=== PATIENT | female | born 1940 | race Caucasian/White ===

== ENCOUNTER 2018-05-11 01:09 | Outpatient (CLI) | payer MEDICARE, OTHER, SELFPAY ==
[2018-05-11 09:41] LABS: ALT 23 U/L (12-78); AST 23 U/L (15-37); Albumin 3.8 g/dL (3.4-5.0); Alkaline Phosphatase 84 U/L (46-116); Anion Gap 8.9 mmol/L (3-11); BUN 20 mg/dL (7-18); Bilirubin, Total 0.4 mg/dL (0.2-1.0); CO2 31.1 mmol/L (21.0-32.0); CREATININE 1.16 mg/dL (0.55-1.02); Calcium 9.6 mg/dL (8.5-10.1); Chloride 101 mmol/L (98-107); Estimated GFR 45.54 (mL/min/1.73m2); Glucose 94 mg/dL (70-100); Potassium 4.6 mmol/L (3.5-5.1); Sodium 141 mmol/L (136-145)
== END 2018-05-11 01:29 ==
DX: I10 Essential (primary) hypertension (principal); J44.9 Chronic obstructive pulmonary disease, unspecified; F17.200 Nicotine dependence, unspecified, uncomplicated
CPT/HCPCS: 36415; 80053

== ENCOUNTER 2018-08-31 00:53 | Outpatient (CLI) | payer MEDICARE, OTHER, SELFPAY ==
--- NOTE | 2018-08-31 09:25 | DI.MAMMO_ITS ---
SYMPTOMS/DIAGNOSIS: SCREENING, Z12.31 BILATERAL SCREENING MAMMOGRAM: Mammograms were interpreted according to the usual protocol including computer analysis with CAD system, tomosynthesis and C view imaging. Comparison is made with 2004. The breasts are composed of scattered fibroglandular densities. No suspicious masses or suspicious microcalcifications are seen. There has been no significant change. IMPRESSION: Category 1, negative mammogram. Yearly screening mammography is recommended. [facility] ASSESSMENT OF FINDINGS: Negative. Category 1. Patient will receive a letter notifying them of these results. BI-RADS category B. There are scattered areas of fibroglandular density.
--- NOTE | 2018-08-31 09:47 | DI.RAD_ITS ---
SYMPTOM/DIAGNOSIS: LT SHOULDER PAIN, M25.512 LEFT SHOULDER: No fracture or dislocation is seen. There is mild spurring at the AC joint and glenoid. The humeral head appears normally positioned. No tendon or joint space calcifications are seen. IMPRESSION: Mild degenerative changes.
== END 2018-08-31 01:13 ==
DX: Z12.31 Encounter for screening mammogram for malignant neoplasm of breast (principal); M25.512 Pain in left shoulder; M19.012 Primary osteoarthritis, left shoulder
CPT/HCPCS: 77063; 77067; 73030

== ENCOUNTER 2020-01-15 01:47 | Outpatient (CLI) | payer MEDICARE, OTHER, SELFPAY ==
--- NOTE | 2020-01-15 07:30 | DI.MAMMO_ITS ---
EXAM: MAMMO SCREENING CLINICAL HISTORY: screening,z12.39 TECHNIQUE: Mammograms were interpreted according to the usual protocol including computer analysis w ith CAD system, tomosynthesis and C-view imaging. COMPARISON: FINDINGS: The breasts are moderate density with fairly symmetrical distribution of fibroglandular tissue. No d ominant mass or clumped microcalcification is identified in either breast. The current examination i s compared with the previous examination of August 2018 and there is question of a new focal area o f asymmetric density or nodularity in the retroareolar portion of the left breast seen on the CC view only. Additional mammographic views of this area are requested to include a CC spot compression vie w of the left breast. No other significant abnormality seen. IMPRESSION: Additional mammographic views of the left breast requested as described above. Breast ultrasound may be indicated as well depending on the results of the additional mammographic views. BI-RADS Category 0 - Assessment Incomplete: Need additional imaging evaluation Breast Density - Category B - Scattered areas of fibroglandular density
== END 2020-01-15 02:07 ==
DX: Z12.31 Encounter for screening mammogram for malignant neoplasm of breast (principal); R92.8 Other abnormal and inconclusive findings on diagnostic imaging of breast
CPT/HCPCS: 77063; 77067

== ENCOUNTER 2020-01-16 01:15 | Outpatient (CLI) | payer MEDICARE, OTHER, SELFPAY ==
--- NOTE | 2020-01-16 | DI.MAMMO_ITS ---
EXAM: MG MAMMO SCREEN CALL BACK UNI CLINICAL HISTORY: F/U MAMMO, NEW FOCAL ASYMMETRIC DENSITY LT BREAST TECHNIQUE: Mammograms were interpreted according to the usual protocol including computer analysis w ith CAD system, tomosynthesis and C-view imaging. COMPARISON: FINDINGS: Additional mammographic views of left breast and left breast ultrasound are interpreted in conjunctio n. These examinations were obtained to evaluate questionable retroareolar nodularity of the left [address] seen on recent mammogram. Additional mammographic views fail to show a discrete mass. Breast ultra sound shows no evidence of a mass or cyst. IMPRESSION: No specific evidence of malignancy at this time. Follow-up unilateral left breast mammogram recommen ded in 6 months. BI-RADS Category 3 - 6 month - Probably Benign Finding: Recommend follow-up mammography in 6 months Breast Density - Category B - Scattered areas of fibroglandular density
--- NOTE | 2020-01-16 | DI.US_ITS ---
EXAM: US BREAST LT LIMITED CLINICAL HISTORY: NEW FOCAL AREA LT BREAST TECHNIQUE: Ultrasound performed using standard protocol. COMPARISON: US US BREAST LT LIMITED from 01/16/2020 FINDINGS: Left breast ultrasound was performed in conjunction with left breast additional mammographic views, q uestionable nodular finding on recent mammogram was assessed with additional views and ultrasound. A dditional view showed no mass. Ultrasound shows no mass or cyst in the retroareolar portion of the b reast. IMPRESSION: No specific evidence of malignancy at this time. Follow-up unilateral left breast mammogram recommen ded in 6 months. Please see accompanying diagnostic mammography report. DATA REPOSITORY:
[2020-01-16 14:37] LABS: ALT 22 U/L (14-59); AST 25 U/L (15-37); Alkaline Phosphatase 61 U/L (46-116); BUN 18 mg/dL (7-18); Bilirubin, Total 0.5 mg/dL (0.2-1.0); CREATININE 1.22 mg/dL (0.55-1.02); Calcium 9.4 mg/dL (8.5-10.1); Chloride 102 mmol/L (98-107); Estimated GFR 42.74 (mL/min/1.73m2); Glucose 87 mg/dL (74-106); Potassium 3.9 mmol/L (3.5-5.1); Sodium 139 mmol/L (136-145)
== END 2020-01-16 01:35 ==
DX: Z12.31 Encounter for screening mammogram for malignant neoplasm of breast (principal); R92.8 Other abnormal and inconclusive findings on diagnostic imaging of breast; N64.59 Other signs and symptoms in breast; I10 Essential (primary) hypertension; E78.5 Hyperlipidemia, unspecified
CPT/HCPCS: 36415; 76642; 77063; 77067; 80053

== ENCOUNTER 2020-07-18 21:33 | Outpatient (REF) | payer MEDICARE, OTHER, SELFPAY ==
[2020-07-18 21:52] LABS: ESR 15 mm/hr (0-30)
== END 2020-07-18 21:53 ==
LOC: NCHCN 21:33
PROVIDERS: Visit Provider Physician Assistant
DX: R68.84 Jaw pain (principal)
CPT/HCPCS: 85652

== ENCOUNTER 2020-09-04 04:09 | Outpatient (CLI) | payer MEDICARE, OTHER, SELFPAY ==
[2020-09-04 09:06] LABS: Abs Immature Grans 0.02 10^3/uL (0.0-0.06); Absolute Basophil Count 0.04 10^3/uL (0.0-0.2); Absolute Eosinophil Count 0.13 10^3/uL (0.0-0.7); Absolute Lymphocyte Count 2.59 10^3/uL (1.2-3.4); Absolute Monocyte Count 0.71 10^3/uL (0.1-0.8); Absolute Neutrophil Count 6.03 10^3/uL (1.2-6.7); Basophils % 0.4; Eosinophils % 1.4; HCT 44.1 % (36.0-46.0); HGB 14.4 g/dL (11.2-15.7); Immature Grans % 0.2; Lymphocytes % 27.2; MCH 31.3 pg (27.0-33.0); MCHC 32.7 % (32.0-36.0); MCV 95.9 fL (80-95); MPV 9.4 fL (8.0-11.0); Monocytes % 7.5; Neutrophils % 63.3; Nucleated RBC 0 %; Platelet Count 200 10^3/uL (130-400); RDW 13.4 % (11.7-14.6); RDW-SD 47.8 fL; WBC 9.52 10^3/uL (4.4-10.8)
[2020-09-04 09:09] LABS: C-Reactive Protein 0.06 mg/dL (0.0-0.3)
[2020-09-04 23:26] LABS: ESR 15 mm/hr (<or=30)
== END 2020-09-04 04:10 | disposition home or self-care (01) ==
PROVIDERS: Visit Provider Optometrist
DX: M31.6 Other giant cell arteritis (principal); H35.61 Retinal hemorrhage, right eye
CPT/HCPCS: 36415; 85652; 85025; 86140

== ENCOUNTER 2020-12-15 04:25 | Outpatient (CLI) | payer MEDICARE, OTHER, SELFPAY ==
--- NOTE | 2020-12-15 17:14 | PDOC.EEG ---
Neurology EEG EEG: [facility] Department of Neurology EEG REPORT Date of Recordin12/15/20 Interpreting Physician: Dr. Brandy Germain PCP/Referring Provider: Dr. Vani Kelley Reason for study: Ms. Jaffe is a 80 year-old woman with spontaneous and intermittent episodes of left hand shaking concerning for seizure. Current Medications: Home Medications Medication Instructions Recorded Confirmed Type aspirin [Aspirin Low-Strength] 81 mg PO DAILY tab-cap 10/02/14 12/08/20 History lisinopril 10 1 tab PO DAILY #90 tab-cap 01/14/20 12/08/20 Rx mg-hydrochlorothiazide 12.5 mg tablet pravastatin 40 mg tablet 40 mg PO HS #90 tab-cap 01/14/20 12/08/20 Rx umeclidinium 62.5 mcg/actuation 1 inh IH DAILY #90 inh 01/14/20 12/08/20 Rx blister powder for inhalation multivit with 1 tab PO DAILY 07/18/20 12/08/20 History chlddaen-dmyv-KP-lutein 8 mg iron-400 mcg-300 mcg tablet METHODS: A 21 channel digitized electroencephalogram was performed in the [facility] Clinical Neurophysiology Laboratory. The 10/20 international system of electrode placement was used and bipolar and referential electrode montages were recorded. In addition to EEG the patient was monitored for EKG and lateral/vertical eye movements. Activation procedures of photic stimulation and hyperventilation were performed if applicable. Video was used during activation procedures and during events where applicable. The duration of the recording was 30 minutes. DESCRIPTION OF EEG: The patient was noted to be awake drowsy, and asleep during the recording. During maximal wakefulness a 9-Hz posterior background rhythm was present which was well-modulated, symmetrical, reactive to eye opening, and of moderate voltage. With eye opening the background activity changed to a low voltage mixture of alpha, beta, and occasional theta range frequencies. Faster frequencies were present in the bilateral anterior head regions. There was a normal anterior-posterior voltage gradient. During drowsiness, there was attenuation of the posterior dominant background rhythm and vertex waves. Stage II sleep was present with symmetrical sleep spindles, K-complexes, and vertex waves. Activating Procedures: Photic stimulation was performed which produced a symmetrical posterior driving response at various flash frequencies. Hyperventilation was not performed EKG: EKG revealed normal sinus rhythm/sinus bradycardia. INTERPRETATION: This EEG is normal during the awake and sleep states as well as during photic stimulation. PRIOR EEG: none CLINICAL CORRELATION: No focal regions of cerebral dysfunction or epileptiform activity was present. Epilepsy remains a clinical diagnosis and a normal EEG does not rule out epilepsy. Clinical correlation is advised. Brandy Germain MD
== END 2020-12-15 04:26 | disposition home or self-care (01) ==
LOC: RT 04:25
PROVIDERS: Visit Provider Family Medicine
DX: R42 Dizziness and giddiness (principal); R29.898 Other symptoms and signs involving the musculoskeletal system
CPT/HCPCS: 95819

== ENCOUNTER → 2020-12-16 07:45 | Outpatient (BNVA) | payer MEDICARE, OTHER, SELFPAY | PROVIDERS: Visit Provider Psychiatry & Neurology Neurology ==

== ENCOUNTER 2020-12-17 07:45 | Outpatient (CLI) | payer MEDICARE, OTHER, SELFPAY ==
[2020-12-17 10:25] LABS: HCT 41.4 % (36.0-46.0); HGB 13.7 g/dL (11.2-15.7); MCHC 33.1 % (32.0-36.0); MCV 93.7 fL (80-95); MPV 8.6 fL (8.0-11.0); Platelet Count 219 10^3/uL (130-400); RBC 4.42 10^6/uL (3.93-5.22); RDW 12.9 % (11.7-14.6); RDW-SD 44.4 fL; WBC 10.74 10^3/uL (4.4-10.8)
[2020-12-17 10:26] LABS: ESR 3 mm/hr (0-30)
[2020-12-17 12:04] LABS: Albumin 3.9 g/dL (3.4-5.0); Alkaline Phosphatase 70 U/L (46-116); BUN 15 mg/dL (7-18); Bilirubin, Total 0.4 mg/dL (0.2-1.0); CO2 27.9 mmol/L (21.0-32.0); Calcium 9.4 mg/dL (8.5-10.1); Calculated LDL 74 mg/dL (<100); Chloride 99 mmol/L (98-107); Cholesterol 168 mg/dL (<200); Estimated GFR 53.62 (mL/min/1.73m2); Glucose 90 mg/dL (74-106); HDL Cholesterol 77 mg/dL (40-60); Potassium 3.9 mmol/L (3.5-5.1); Sodium 137 mmol/L (136-145); Total Protein 6.7 g/dL (6.4-8.2); Triglyceride 87 mg/dL (<150)
[2020-12-17 12:05] LABS: ALT 26 U/L (14-59); AST 24 U/L (15-37); Anion Gap 10.1 mmol/L (3-11); TSH (W/Ref FT4) 1.58 uIU/mL (0.36-3.74)
== END 2020-12-17 07:46 | disposition home or self-care (01) ==
PROVIDERS: Visit Provider Family Medicine
DX: R42 Dizziness and giddiness (principal); R25.3 Fasciculation; E78.5 Hyperlipidemia, unspecified; K59.01 Slow transit constipation; J41.0 Simple chronic bronchitis
CPT/HCPCS: 36415; 80053; 80061; 85027; 85652; 84443

== ENCOUNTER 2020-12-22 02:01 | Outpatient (CLI) | payer MEDICARE, OTHER, SELFPAY ==
--- NOTE | 2020-12-22 09:30 | DI.MRI_ITS ---
Exam(s) MR BRAIN WO EXAM: MR BRAIN WO CLINICAL HISTORY: ? seizures,muscle twitching,dizziness,r25.3,r42 TECHNIQUE: Multiplanar multisequence MRI of the brain was performed. COMPARISON: No prior brain imaging studies available time this MRI interpretation. FINDINGS: CEREBRAL PARENCHYMA: There is no evidence of intracranial hemorrhage, mass effect, or shift of midline structures. There are no extra-axial fluid collections. Ventricles are not enlarged or shifted. Small area of signal abnormality in the left cerebellar hemispheres noted is probably related to non recent ischemic change. There is no significant signal abnormality in the alesia and midbrain and thal ami. Small sub lenticular cyst on the left side is noted which measures 3 x 3 millimeters. There is some mild bilateral periventricular signal abnormality, more prominent on the right side but not ass ociated with hemorrhage or surrounding edema nor abnormal signal on diffusion imaging to suggest acut e ischemic events. There is no significant focal signal abnormality evident on diffusion imaging to suggest acute ischem ic event. PITUITARY GLAND: No mass nor parasellar abnormality. No obvious abnormality in the cavernous sinuses. FLOW VOIDS: Left vertebral artery is dominant. No evidence of obvious aneurysm nor obvious vascular malformation. PARANASAL SINUSES: The visualized paranasal sinuses appear unremarkable. No obvious finding ORBITS: No obvious findings. IMPRESSION: There is periventricular signal abnormality bilaterally but more prominent on the right side. This, however, is not associated with hemorrhage or surrounding edema nor abnormal signal on diffusion imag ing to suggest acute ischemic event. These findings most probably chronic ischemic changes. DATA REPOSITORY:
--- NOTE | 2020-12-22 09:51 | DI.CTLCSR_ITS ---
Exam(s) CT CHEST LUNG CANCER SCREEN EXAM: CT CHEST LUNG CANCER SCREEN CLINICAL HISTORY: Screening for lung cancer,current smoker, f17.210. TECHNIQUE: Imaging Protocol: Low Dose Technique CONTRAST MATERIAL: None COMPARISON: CR XR CHEST 2V PA LATERAL from 12/22/2020 CR XR CHEST 2V PA LATERAL from 12/22/2020 FINDINGS: CHEST: LUNGS: There is a small noncalcified nodule in the anterior segment of the left upper lobe which desire ures 3 x 2 millimeters.. Mild subpleural infiltrate noted in the anterior segment left upper lobe. There is also a small nodular density lateral aspect left lung measuring 5 millimeters. Mild infiltr ate noted in the inferior lingular segment left lung. No pleural effusion. In the opposite-right lung there is a subpleural 4 millimeter nodular infiltrate in the lateral right upper lobe noted. There is also a 2 millimeter subtle nodule in the right lower lobe. No pleural e ffusions on either side. There are no significant focal findings in the trachea and mainstem bronchi . MEDIASTINUM: There is no obvious hilar nor mediastinal adenopathy. CARDIAC: Heart size is normal. There is no pericardial effusion.Caliber of the thoracic aorta is wit hin normal limits. OTHER: OSSEOUS: No significant osseous lesions.. IMPRESSION: 1. Bilateral nodular infiltrates both lung burdick as described above. No pleural effusions. No obvi ous intrathoracic adenopathy. Recommend follow-up CT scan in 6 months, earlier if clinically indicat ed lung RADS Cat 3 - Probably Benign: Probably benign finding(s) - short term follow-up suggested; inclu de nodules with a low likelihood of becoming a clinically active cancer. Lung-RADS 1.0 CATEGORIES: Category 0 - Prior chest CT exam(s) being located for comparison. Category 1 - Annual screening in 12 months. No nodules or definitely benign nodules. Category 2 - Annual screening in 12 months. Benign appearance. Nodules with low likelihood of becomin g active cancer. Category 3 - 6-month follow-up. Probably benign. Short-term follow-up suggested. Nodules with low lik elihood of becoming active cancer. Category 4A - 3-month follow-up and CT/PET if >8 mm in size. Suspicious finding. Findings which requi re additional testing. Category 4B - Findings which require additional testing and tissue sampling. Modifier S- Potentially clinically significant findings (non lung cancer) RADIATION DOSE DELIVERED: 76.44mGy.cm Total DLP 1.84mGy CTDIvol DATA REPOSITORY: All CT scans at this facility are submitted to the National Radiology Data Registry (NRDR) Dose Index Registry (DIR) with the [employer] (ACR). RADIATION OPTIMIZATION: All CT scans at this facility use at least one of these dose optimization te chniques: automated exposure control; mA and/or kV adjustment per patient size (includes targeted exa ms where dose is matched to clinical indication); or iterative reconstruction.
--- NOTE | 2020-12-22 09:56 | DI.RAD_ITS ---
Exam(s) XR CHEST 2V PA LATERAL EXAM: XR CHEST 2V PA LATERAL CLINICAL HISTORY: smoker,f17.200. TECHNIQUE: 2D digital imaging was performed. COMPARISON: CR XR shoulder LT complete 2+V from 08/31/2018 FINDINGS: Heart size is normal. The mediastinum is not widened. Lungs are clear. No infiltrates nor pleural effusions. IMPRESSION: No acute pulmonary findings. DATA REPOSITORY: RADIATION DOSE DELIVERED:
== END 2020-12-22 02:21 ==
PROVIDERS: Visit Provider Family Medicine
DX: Z12.2 Encounter for screening for malignant neoplasm of respiratory organs; R91.8 Other nonspecific abnormal finding of lung field; R42 Dizziness and giddiness; R25.3 Fasciculation; F17.200 Nicotine dependence, unspecified, uncomplicated
CPT/HCPCS: 71271; 70551; 71046

== ENCOUNTER 2020-12-30 03:23 | Outpatient (CLI) | payer MEDICARE, SELFPAY ==
[2020-12-31 10:33] LABS: Lyme Ab w Rflx to Lyme Confirm Negative (Negative)
== END 2020-12-30 03:24 | disposition home or self-care (01) ==
LOC: LBO 03:23
PROVIDERS: Visit Provider Family Medicine
DX: W57.XXXA Bitten or stung by nonvenomous insect and other nonvenomous arthropods, initial encounter (principal); T14.8XXA Other injury of unspecified body region, initial encounter
CPT/HCPCS: 36415; 86618

== ENCOUNTER → 2021-02-12 08:37 | Outpatient (BNVA) | payer MEDICARE, OTHER, SELFPAY | PROVIDERS: Visit Provider Psychiatry & Neurology Neurology | DX: R56.9 Unspecified convulsions (principal); R42 Dizziness and giddiness; I10 Essential (primary) hypertension; J44.9 Chronic obstructive pulmonary disease, unspecified | CPT/HCPCS: 99205 ==

== ENCOUNTER → 2021-03-30 08:14 | Outpatient (BNVA) | payer MEDICARE, OTHER, SELFPAY | PROVIDERS: Visit Provider Psychiatry & Neurology Neurology | DX: R42 Dizziness and giddiness (principal); R56.9 Unspecified convulsions | CPT/HCPCS: 99213 ==

== ENCOUNTER 2021-04-16 03:01 | Outpatient (CLI) | payer MEDICARE, OTHER, SELFPAY ==
--- NOTE | 2021-04-16 16:15 | RT.EKG_ITS ---
APPROVED REPORT Exam: Resting ECG Reason for Exam: Abn EKG on EEG Patient Location: O HR:88 bpm ECG Measurements Heart Rate 88 AXIS PA 133 P 81 QRSd 80 QRS 38 QT 379 T 76 QTc 460 Conclusion Sinus rhythm...normal P axis, V-rate 60- 99 Normal Electrocardiogram
--- NOTE | 2021-04-21 11:48 | PDOC.EEG ---
Neurology EEG EEG: [facility] Department of Neurology LONG-TERM AMBULATORY EEG REPORT Date of Recordin04/16/21 at 08:37:06 to 04/18/21 at 09:27:11 Interpreting Physician: Dr. Brandy Germain PCP/Referring Provider: Reason for study: Ms. Jaffe is a 80 year-old woman with episodic left arm shaking concerning for focal seizures. Current Medications: Home Medications Medication Instructions Recorded Confirmed Type aspirin [Aspirin Low-Strength] 81 mg PO DAILY tab-cap 10/02/14 03/30/21 History multivit with 1 tab PO DAILY 07/18/20 03/30/21 History omkbnvxq-cpwb-KB-lutein 8 mg iron-400 mcg-300 mcg tablet lisinopril 10 1 tab PO DAILY #90 tab-cap 01/13/21 03/30/21 Rx mg-hydrochlorothiazide 12.5 mg tablet umeclidinium 62.5 mcg/actuation 1 inh IH DAILY #90 inh 01/13/21 03/30/21 Rx blister powder for inhalation polyethylene glycol 3350 17 17 g PO DAILY PRN #510 g 01/26/21 03/30/21 Rx gram/dose oral powder food supplemt, lactose-reduced 237 ml PO BID PRN #5688 ml 02/05/21 03/30/21 Rx 0.05 gram-1.5 kcal/mL oral liquid levetiracetam 250 mg tablet 250 mg PO .COMPLEX #60 tab 03/30/21 03/30/21 Rx pravastatin 40 mg tablet 40 mg PO HS #90 tab-cap 04/03/21 Rx METHODS: An 18-channel digitized electroencephalogram was recorded in the ambulatory setting with video. The 10/20 international system of electrode placement was used and bipolar and referential electrode montages were recorded. In addition to EEG the patient was monitored for EKG. The video application was not working for this EEG. Activation procedures of photic stimulation and hyperventilation were performed if applicable. The duration of the recording was ~49 hours. DESCRIPTION OF EEG: Waking background activity: During maximal wakefulness a 10-Hz posterior background rhythm was present which was well-modulated, symmetrical, reactive to eye opening, and of moderate voltage. Faster frequencies were present in the bilateral anterior head regions. There was a normal anterior-posterior voltage gradient. Drowsy and sleeping background activity: During drowsiness, there was attenuation of the posterior dominant background rhythm and vertex waves. Normal stage II and III sleep was present with symmetrical sleep spindles, K-complexes, and vertex waves with slowing of the background rhythm to delta/theta frequencies. REM sleep manifested by rapid lateral eye movements and faster background rhythms was recorded. Arousal was unremarkable. Interictal abnormalities: none. Ictal findings: Unfortunately, video was not working during this recording. Event #1 on 04/16/21 at 10:45 -Clinical manifestations: Left hand and arm twitching [id number] while doing dishes. -EEG findings: No abnormal or epileptiform activity seen. Event #2 on 04/16/21 at 19:10 -Clinical manifestations: Neck pain and headache x 30min while doing word puzzles. -EEG findings: No abnormal or epileptiform activity seen. Event #3 on 04/17/21 at 10:06 -Clinical manifestations: Arm and hand twitching [id number] while sitting. -EEG findings: No abnormal or epileptiform activity seen. Event #4 on 04/17/21 at 09:38 -Clinical manifestations: Arm and hand twitching x15sec while eating breakfast. -EEG findings: No abnormal or epileptiform activity seen. Event #5 on 04/17/21 at 11:00 -Clinical manifestations: Arm and hand twitching and leg feel weak [id number] while doing dishes and sweeping. -EEG findings: No abnormal or epileptiform activity seen. Event #6 on 04/17/21 at 11:09 -Clinical manifestations: Arm and hand twitching [id number] while sitting. -EEG findings: No abnormal or epileptiform activity seen. Event #7 on 04/17/21 at 12:31 -Clinical manifestations: Arm and hand twitching [id number] while getting up from lying down. -EEG findings: No abnormal or epileptiform activity seen. She was asleep prior to button push. Event #8 on 04/17/21 at 17:17 -Clinical manifestations: Dizzy/arm twitching/legs shakey/woozy x 10-15sec while putting dishes away. -EEG findings: No abnormal or epileptiform activity seen. Event #9 on 04/18/21 at 07:40 -Clinical manifestations: A little dizzy x 5-10sec. -EEG findings: No abnormal or epileptiform activity seen. Activating Procedures: Photic stimulation was performed which produced a symmetrical posterior driving response at various flash frequencies. Hyperventilation was not performed. EKG: EKG revealed normal sinus rhythm. INTERPRETATION: This long-term EEG is normal during the awake and sleep states as well as during photic stimulation. Multiple typical and atypical events captured above without clear epileptiform activity. PRIOR EEG: -EEG (12/15/20 at [facility]): No events captured. Normal awake, asleep, and with photic stimulation. CLINICAL CORRELATION: No focal regions of cerebral dysfunction or epileptiform activity was present. Multiple typical and atypical events captured above without clear epileptiform activity. This does not necessarily rule out an epileptic process. Epilepsy remains a clinical diagnosis and a normal EEG does not rule out epilepsy. Clinical correlation is advised. Brandy Germain MD
== END 2021-04-16 03:02 | disposition home or self-care (01) ==
LOC: RT 03:02
PROVIDERS: Visit Provider Psychiatry & Neurology Neurology
DX: R29.898 Other symptoms and signs involving the musculoskeletal system (principal)
CPT/HCPCS: 95705; 95708; 95721; 93005; 93010

== ENCOUNTER 2021-04-24 01:18 | Outpatient (CLI) | payer MEDICARE, OTHER, SELFPAY ==
--- NOTE | 2021-04-24 06:45 | DI.US_ITS ---
Exam(s) US CAROTID EXAM: US CAROTID CLINICAL HISTORY: tia,cva,I63.9. TECHNIQUE: Ultrasound carotids performed using grayscale, color-flow, and spectral Doppler imaging. COMPARISON: No exams were available for comparison FINDINGS: RIGHT CAROTID ARTERY: Plaque: Moderate calcific plaque seen in the common carotid artery in the carotid bulb. Velocity elevation: None. LEFT CAROTID ARTERY: Plaque: Moderate calcific plaque present the common carotid artery, carotid bulb and proximal interna l and external carotid arteries. Velocity elevation: Yes. VERTEBRAL ARTERIES: Antegrade flow. Measurements: R Bulb: 128.9cm/s PS / 25.6cm/s ED R CCA: 18.2cm/s PS / 5.2cm/s ED R ECA: 65.8cm/s PS / 13cm/s ED R ICA Prox: 83.1cm/s PS /9.4cm/s ED R ICA Mid: 46.9cm/s PS / 6.4cm/s ED R ICA Distal: 56.1cm/s PS /12.1cm/s ED R Vert: 63cm/s PS / 9.3cm/s ED R SVR: 4.57 R DVR: 1.81 L Bulb: 71.1cm/s PS /11cm/s ED L CCA: 72.3cm/s PS / 19.1cm/s ED L ECA: 156.7cm/s PS /17.9cm/s ED L ICA Prox:139.9cm/s PS / 31.6cm/s ED L ICA Mid: 97.5cm/sPS / 24.8cm/s ED L ICA Distal: 109.1cm/s PS / 27.3cm/s ED L Vert: 96.7cm/s PS / 26.4cm/s ED L SVR: 1.93 L DVR: 1.65 IMPRESSION: 1. Proximal left internal carotid artery stenosis in the range of 50-69 percent. 2. No hemodynamically significant right internal carotid artery stenosis. Criteria for Carotid Stenosis: Normal: ICA PSV <125 cm/s no plaque or intimal thickening is visible. <50% stenosis: ICA PSV <125 cm/s and plaque or intimal thickening is visible. 50-69% stenosis: ICA PSV is 125-250 cm/s and plaque is visible. >70% stenosis to near occlusion: ICA PSV >250 cm/s with visible plaque and luminal narrowing. DATA REPOSITORY:
== END 2021-04-24 01:38 ==
PROVIDERS: Visit Provider Psychiatry & Neurology Neurology
DX: I63.9 Cerebral infarction, unspecified (principal); I65.22 Occlusion and stenosis of left carotid artery
CPT/HCPCS: 36415; 82565; 93880

== ENCOUNTER 2021-04-24 07:43 | Outpatient (CLI) | payer MEDICARE, OTHER, SELFPAY ==
[2021-04-24 09:45] LABS: CREATININE 1.1 mg/dL (0.55-1.02); Estimated GFR 48.04 (mL/min/1.73m2)
== END 2021-04-24 07:44 | disposition home or self-care (01) ==
LOC: LBO 07:44
PROVIDERS: Visit Provider Psychiatry & Neurology Neurology
DX: R56.9 Unspecified convulsions (principal); Z01.812 Encounter for preprocedural laboratory examination
CPT/HCPCS: 36415; 82565

== ENCOUNTER 2021-04-28 00:21 | Outpatient (CLI) | payer MEDICARE, OTHER, SELFPAY ==
--- NOTE | 2021-04-28 08:30 | DI.MRI_ITS ---
Exam(s) MR BRAIN WO/W EXAM: MR BRAIN WO/W CLINICAL HISTORY: szs and recent episode transient left hand numbnesS,R56.9. TECHNIQUE: Multiplanar multisequence MRI of the brain was performed. CONTRAST MATERIAL: IV Contrast: 12 ML of Dotarem contrast administered. COMPARISON: MR MR BRAIN WO from 12/22/2020 FINDINGS: VENTRICLES AND EXTRA AXIAL SPACES: Normal in size and morphology for the patient's age. HEMORRHAGE: None. CEREBRAL PARENCHYMA: No focus of restricted diffusion to suggest acute infarct. No space-occupying le jake identified. Stable scattered foci of high signal in the white matter both cerebral hemispheres, slightly greater on the right, likely reflecting chronic microvascular changes. Mild to moderate at rophy. MIDLINE SHIFT: None. BRAINSTEM/CEREBELLUM: Normal. CALVARIUM: Normal. ENHANCEMENT: No suspicious enhancement identified. VISUALIZED PARANASAL SINUSES/MASTOIDS: Clear. OTHER FINDINGS: Orbits and pituitary are unremarkable. Vascular flow voids are intact. IMPRESSION: Stable appearance atrophy and white matter changes consistent with small vessel disease. No evidence of acute infarct or abnormal enhancement. DATA REPOSITORY:
[2021-04-28] MEDS: Gadoterate meglumine 20 ML VIAL 12 ML IVP (14:18)
[2021-04-28] MEDS: Normal Saline Flush 10 ML SYR IVP (14:18)
== END 2021-04-28 00:41 ==
PROVIDERS: Visit Provider Psychiatry & Neurology Neurology
DX: R56.9 Unspecified convulsions (principal); R20.0 Anesthesia of skin; G31.89 Other specified degenerative diseases of nervous system; R90.82 White matter disease, unspecified
CPT/HCPCS: 70553

== ENCOUNTER → 2021-05-05 08:25 | Outpatient (BNVA) | payer MEDICARE, OTHER, SELFPAY | PROVIDERS: Visit Provider Psychiatry & Neurology Neurology | DX: R25.1 Tremor, unspecified (principal); M79.602 Pain in left arm; I65.22 Occlusion and stenosis of left carotid artery | CPT/HCPCS: 99214 ==

== ENCOUNTER 2021-08-14 01:22 | Outpatient (CLI) | payer MEDICARE, OTHER, SELFPAY ==
--- NOTE | 2021-08-14 09:15 | DI.MRI_ITS ---
Exam(s) MR CERVICAL SPINE WO EXAM: MR CERVICAL SPINE WO CLINICAL HISTORY: CERVICAL SPONDYLOSIS WITH MYELOPATHY, M17.12; HYPERREFLEXIA, R29.2 TECHNIQUE: Multiplanar multisequence MRI of the cervical spine was performed without intravenous con trast. COMPARISON: No exams were available for comparison FINDINGS: BONES: Vertebral body heights are maintained. Intervertebral disc spaces are normal. Alignment is nor mal. Bone marrow signal intensity is within normal limits. CERVICAL CORD: Craniovertebral junction is unremarkable. The cervical cord is normal size and signal intensity. SOFT TISSUES: Unremarkable. C2-3: No disc herniation or bulge is identified. No significant central spinal canal or neural forami nal stenosis. C3-4: No disc herniation or bulge is identified. No significant central spinal canal or neural forami nal stenosis C4-5: There is mild prominence of the uncovertebral joints. This does result in mild narrowing of th e neural foramen bilaterally, right greater than left. No significant central spinal canal stenosis. C5-6: No disc herniation or bulge is identified. No significant central spinal canal or neural forami nal stenosis C6-7: No disc herniation or bulge is identified. No significant central spinal canal or neural forami nal stenosis C7-T1: No disc herniation or bulge is identified. No significant central spinal canal or neural keyla inal stenosis IMPRESSION: Degenerative changes at C4-5 resulting in mild bilateral neural foraminal stenosis, right greater manfred n left. DATA REPOSITORY:
== END 2021-08-14 01:42 ==
PROVIDERS: Visit Provider Psychiatry & Neurology Neurology
DX: M47.12 Other spondylosis with myelopathy, cervical region (principal); R29.2 Abnormal reflex
CPT/HCPCS: 72141

== ENCOUNTER 2021-08-14 01:24 | Outpatient (CLI) | payer MEDICARE, OTHER, SELFPAY ==
--- NOTE | 2021-08-14 06:30 | DI.CT_ITS ---
Exam(s) CT CHEST WO EXAM: CT CHEST WO CLINICAL HISTORY: f/u lung screening ct, lung abnormality,j98.4 TECHNIQUE: Imaging Protocol: Axial computed tomography images with coronal and sagittal reformatted images were created and reviewed COMPARISON: CT CT CHEST LUNG CANCER SCREEN from 12/22/2020 FINDINGS: Tracheobronchial tree: Patent where visualized. Pulmonary parenchyma: No consolidation or dominant measurable mass. Mild emphysematous changes are se en in the lungs. Lung Nodules: There is a stable 3 mm noncalcified pulmonary nodule in the anterior aspect of the left upper lobe. The 5 mm ground-glass nodule in the lateral aspect of the left lung is unchanged. Ther e is a stable 3 mm nodule in the lateral aspect of the right upper lobe. There is a stable subpleura l 2 mm nodule in the right lower lobe. There is a 3 mm subpleural nodule in the right upper lobe lat erally. There is new 5 mm nodule in the right middle lobe. Mediastinum and Natasha: Stable mildly enlarged mediastinal lymph nodes. There does appear to be a smal l hiatal hernia. The esophagus is otherwise unremarkable. Thyroid gland: Unremarkable. Lymph nodes: No significant axillary adenopathy. Pleura: No effusion or pneumothorax. Heart: The heart is not dilated. Coronary artery calcifications are present. No pericardial effusion . Aorta: Thoracic aorta non-dilated.Atherosclerosis. Upper abdomen: Nephrolithiasis. Extensive atherosclerosis. The common bile duct is distended up to 1 cm. Soft Tissues: Unremarkable. Bones: Within normal limits. IMPRESSION: 1. Several pulmonary nodules. There is a new 5 mm pulmonary nodule in the right middle lobe. 2. Nephrolithiasis. 3. Common bile duct distended up to 1 cm. Follow-up with upper abdominal ultrasound should be consid ered. Lung RADS Cat 3 - Probably Benign: Probably benign finding(s) - short term follow-up suggested; inclu de nodules with a low likelihood of becoming a clinically active cancer. Modifier S Lung-RADS 1.0 CATEGORIES: Category 0 - Prior chest CT exam(s) being located for comparison. Category 1 - Annual screening in 12 months. No nodules or definitely benign nodules. Category 2 - Annual screening in 12 months. Benign appearance. Nodules with low likelihood of becomin g active cancer. Category 3 - 6-month follow-up. Probably benign. Short-term follow-up suggested. Nodules with low lik elihood of becoming active cancer. Category 4A - 3-month follow-up and CT/PET if >8 mm in size. Suspicious finding. Findings which requi re additional testing. Category 4B - Findings which require additional testing and tissue sampling. Suspicious finding. Category 4X - Category 3 or 4 nodules with additional features or imaging findings that increases the suspicion of malignancy. Modifier S- Potentially clinically significant finding. (Non lung cancer) RADIATION DOSE DELIVERED: 365.99mGy.cm Total DLP CTDIvol 365.99mGy.cm Total DLP 365.99mGy.cm Total DLP DATA REPOSITORY: All CT scans at this facility are submitted to the National Radiology Data Registry (NRDR) Dose Index Registry (DIR) with the [employer] (ACR). RADIATION OPTIMIZATION: All CT scans at this facility use at least one of these dose optimization te chniques: automated exposure control; mA and/or kV adjustment per patient size (includes targeted exa ms where dose is matched to clinical indication); or iterative reconstruction.
== END 2021-08-14 01:44 ==
DX: J98.4 Other disorders of lung (principal); R91.1 Solitary pulmonary nodule; R59.0 Localized enlarged lymph nodes; K44.9 Diaphragmatic hernia without obstruction or gangrene
CPT/HCPCS: 71250; 72141

== ENCOUNTER 2021-11-13 17:22 | Emergency (ER) | payer MEDICARE, OTHER, SELFPAY ==
[2021-11-13 17:37] VITALS: BP 160/73; PULSE 94; RESP 18; TEMP 37.2; O2SAT 95
--- NOTE | 2021-11-13 18:45 | DI.CT_ITS ---
Exam(s) CT HEAD WO EXAM: CT HEAD WO CLINICAL HISTORY: falls, left temporal/parietal hematoma. TECHNIQUE: Imaging Protocol: Axial computed tomography images with coronal and sagittal reformatted images were created and reviewed COMPARISON: MR MR BRAIN WO/W from 04/28/2021 FINDINGS: There are no skull fractures nor fluid in the visualized paranasal sinuses. There is no evidence of intracranial hemorrhage, mass effect, or shift of midline structures. There are no extra-axial fluid collections. The ventricles are not enlarged or shifted and there is no blo od within the ventricular system nor within the basal cisterns. There are areas of periventricular hypodensity consistent with chronic small vessel disease. However , there is also an area of encephalomalacia in the right frontal lobe which was not evident on the re cent MRI scan of April 2021 and also increase hypodensity in the right periventricular white matter which is more so than expected when viewing the April 2021 MRI. There are no new obvious findings in the cerebellar hemispheres nor within the alesia, midbrain, and th nadiya. IMPRESSION: Increased findings as described above when compared to the most recent brain imaging study which was an MRI of 04/28/2021. Recommend follow-up MRI with diffusion imaging. Study 1st read by [facility]. Final report called by myself to ER provider Tuesday11/14/2021 at 2:15 p.m. RADIATION DOSE DELIVERED: 640.3mGy.cm Total DLP DATA REPOSITORY: All CT scans at this facility are submitted to the National Radiology Data Registry (NRDR) Dose Index Registry (DIR) with the [employer] (ACR). RADIATION OPTIMIZATION: All CT scans at this facility use at least one of these dose optimization te chniques: automated exposure control; mA and/or kV adjustment per patient size (includes targeted exa ms where dose is matched to clinical indication); or iterative reconstruction.
--- NOTE | 2021-11-13 18:45 | DI.RAD_ITS ---
Exam(s) XR HUMERUS LT EXAM: XR HUMERUS LT CLINICAL HISTORY: falls, arm weakness. TECHNIQUE: 2D digital imaging was performed. COMPARISON: No exams were available for comparison FINDINGS: Two views There is no evidence of fracture or dislocation of the left humerus. Subacromial space is not dimini shed. Glenohumeral and AC joints appear unremarkable. Bone density is age-appropriate. No adjacent rib fractures. IMPRESSION: No significant radiographic findings in the left humerus. DATA REPOSITORY: RADIATION DOSE DELIVERED:
--- NOTE | 2021-11-13 18:52 | W.ED.GENAD ---
Discharge Plan Disposition Patient Disposition: HOME Condition: Stable Discharge Details Chief Complaint: GenMedical Clinical Impression: Falls Primary Care Provider: Rupa Rodríguez ED Provider: Jerad Chambers Home Meds and New Rx's Prescriptions: No Action lisinopril-hydrochlorothiazide 10-12.5 mg tablet 1 tab PO DAILY Qty: 90 4RF umeclidinium 62.5 mcg/actuation blister with device 1 inh IH DAILY Qty: 90 4RF Centrum Silver Women 8 mg iron-400 mcg-300 mcg tablet 1 tab PO DAILY aspirin [Aspirin Low-Strength] 81 MG tablet,chewable 81 mg PO DAILY Label Comments: Pt states she hasn't taken anything for over a year. 04/24/19 rl pravastatin 40 mg tablet 40 mg PO HS Qty: 90 4RF Rx Instructions: 1 TAB HS Discharge Instructions Instructions: Fall Prevention for Older Adults (ED) Additional Instructions: Please follow-up with your neurologist as scheduled. Please return the emergency department if you need further assistance obtaining care or hearing more frequent falls/spasms/convulsions. Medical Decision Making 81-year-old female history of convulsions, multiple falls, recent of her 3 months ago, lives alone, has not been able to complete the accident daily living such as cooking cleaning bathing and eating as she normally does, her daughter has been coming out to help her her daughter lives in [place], multiple falls after spasms of lower extremities/convulsions of lower extremities, hit her left scalp approximately week ago, unclear LOC, patient does have a small palpable hematoma in the left parietal temporal region, is alert and oriented moving all extremities, no acute distress at this time, however patient does endorse weight loss likely related to decreased p.o. intake, likely decreased functional status in the setting of grief, patient tearful regarding the loss of her , has not been eating as much, due to her recurrent spasm/shaking activity of her lower extremities patient has had multiple falls, is a risk for serious injury at home as she does live alone, due to physical deterioration and multiple falls will be best served with medical evaluation and rehabilitation stay for occupational and physical therapy. Consider short-term versus long-term placement. Family amenable to plan. Will obtain CT head and x-ray of left humerus, basic labs urinalysis. Low suspicion for acute stroke must consider electrolyte abnormality versus mild dehydration versus UTI versus less likely ACS PE or aortic pathology, consider mechanical injury to left upper extremity such as shoulder dislocation or fracture from fall. 20: 37 labs imaging largely unremarkable. Likely due to mild dehydration. Patient now does not want admission with further follow-up as an outpatient. Family is amenable to caring for patient over the next couple of days, should be using a walker at home to ambulate to assist for mobility and stabilize her in case of falls. I will provide a PT referral as well as follow-up with case management team to discuss occupational therapy and home health care options. Given strict return precautions for worsening symptoms. HPI General Date/Time Provider Initiated Documentation: 11/13/21 18:23. HPI Narrative: 81-year-old female history of convulsions, multiple falls, recent of her approximately 3 months ago, lives alone, brought in by family for multiple falls decreased p.o. intake weight loss patient [place] is falling several days ago hitting her left side of her head unclear whether she had LOC, fall sounds mechanical in nature as she develops rapid spasms of her bilateral lower extremities brief in nature, has had chronic left upper extremity weakness for several months has been evaluated by primary care physician neurology, and has been referred to [facility] for further work-up, has had an EEG that was negative for seizures is currently awaiting EMG Related Data Home Medications Medication Instructions Recorded Confirmed aspirin 81 mg chewable tablet 81 mg PO DAILY 10/02/14 11/13/21 (Aspirin Low-Strength) multivit with 1 tab PO DAILY 07/18/20 11/13/21 [id number]-lutein 8 mg iron-400 mcg-300 mcg tablet (Centrum Silver Women) lisinopril 10 1 tab PO DAILY #90 tab-caps 01/13/21 11/13/21 mg-hydrochlorothiazide 12.5 mg tablet umeclidinium 62.5 mcg/actuation 1 inh inhalation DAILY COPD - 3 01/13/21 11/13/21 blister powder for inhalation inhalers for 3 months #90 inhalations pravastatin 40 mg tablet 40 mg PO HS #90 tab-caps 04/03/21 11/13/21 Previous Rx's Medication Instructions Recorded lisinopril 10 1 tab PO DAILY #90 tab-caps 01/13/21 mg-hydrochlorothiazide 12.5 mg tablet umeclidinium 62.5 mcg/actuation 1 inh inhalation DAILY COPD - 3 01/13/21 blister powder for inhalation inhalers for 3 months #90 inhalations pravastatin 40 mg tablet 40 mg PO HS #90 tab-caps 04/03/21 Allergies Allergy/AdvReac Type Severity Reaction Status Date / Time No Known Allergies Allergy Verified 05/12/21 07:57 General Stated Complaint: GenMedical IFTIKHAR: 3 Review of Systems Narrative: Review of Systems Constitutional: Weight loss Eyes: negative ENT: negative Cardiovascular: negative Respiratory: negative Gastrointestinal: negative : negative Musculoskeletal: negative Skin: negative Neurologic: Spasms, falls Psych: negative PFSH All Active Problems (Updated 11/13/21 @ 20:39 by Jerad Chambers MD) Falls (Acute) Anxiety about health (Acute) Carotid stenosis, left (Acute) Left arm pain (Acute) Seizures (Acute) History of recent fall (Acute) Tremor (Acute) Lung abnormality (Acute) Tick bite (Acute) Dizziness (Acute) Muscle twitching (Acute) Dehydration symptoms (Acute) Jaw pain (Acute) Pain in lower jaw (Acute) Decreased renal function (Acute) Shoulder arthralgia (Chronic) Smoker (Chronic 10/19/16) Polyp of colon (Acute) tubular adenoma Peripheral vascular disease (Acute) Jul 2014 [facility] aorto bifem bypass LEFT ILIAC STENT [facility] 03/2010 Lumbago (Chronic 05/10/13) Hyperlipidemia (Chronic) Essential hypertension (Acute 03/30/13) Diverticulitis of colon (Acute) H/O SIGMOID COLECTOMY Constipation (Chronic 11/14/17) Chronic obstructive lung disease (Acute) PFT'S 2009 FEV 1.15=59% continues to smoke Medical History Chronic obstructive lung disease PFT'S 2009 FEV 1.15=59% continues to smoke Constipation (11/14/17) Decreased renal function Dehydration symptoms Diverticulitis of colon H/O SIGMOID COLECTOMY Essential hypertension (03/30/13) Hyperlipidemia Lumbago (05/10/13) Lung abnormality Pain in lower jaw Peripheral vascular disease Jul 2014 [facility] aorto bifem bypass LEFT ILIAC STENT [facility] 03/2010 Polyp of colon tubular adenoma Shoulder arthralgia Smoker (10/19/16) Tremor Surgical History Extraction of cataract B/L 04/2013 Ligation of fallopian tube Rotator Cuff Repair RIGHT Trigger Finger release WRIST/THUMB SURGERY LEFT THUMB LEFT WRIST RIGHT THUMB Family History Mother Diabetes Essential hypertension Stroke Father , 55 Heart disease Stroke Brother , 71 Complications from surgery No problems noted. Son No problems noted. Son No problems noted. Daughter No problems noted. Daughter No problems noted. Social History Smoking/Tobacco Use Status: Current every day Tobacco Type: cigarettes Smoking packs per day: 0.5 Smoking cigarettes per day: 10.0 Years smoked: 63 Smoking pack-years: 31.50 Quit status: considering quitting Second Hand Exposure: Yes Smoking risk assessment performed?: Yes Alcohol Intake: never Drug use: Never Substance use type: does not use Counseling given: No Counseling provided: none Caregiver/Support person: No Household members: spouse Number of Children: 4 Communication Needs: Hard of Hearing Do you need help understanding health information?: Rarely Pets and animals: Yes Pets and animals: dog(s) Sexually active: No Do you think of yourself as: straight/heterosexual Current gender identity: female What is your relationship status?: How often do you talk on the phone with friends or family?: three or more times per week How often do you attend oriental orthodox or shinto services?: 4 or more times per year Do you belong to any clubs or organized social groups?: no Panel score (0-1 are the most socially isolated patients): 3 What type of physical activity do you participate in: none Darlene/Tenriism: No preference Special darlene needs: No Seatbelt use: always Drive intox or ride w/intox special education bus driver: No Do you feel safe at home: Yes Do you feel safe in your relationship?: Yes Exam Narrative Exam Narrative: Physical Examination General: alert, awake, cooperative, resting comfortably, no acute distress HEENT: normocephalic, atraumatic; PERRL, EOM intact, conjunctiva normal; no nasal discharge; moist mucous membranes, oral and pharyngeal mucosa normal, tolerating secretions Neck: supple, trachea midline; full ROM Chest: normal to inspection Respiratory: normal respiratory effort, speaking in full sentences, clear to auscultation, no wheezing, rales or rhonchi Cardiac: regular rate, regular rhythm, S1S2 intact, no murmurs rubs or gallops GI: abdomen soft, non-tender, non-distended; no palpable mass or hepatosplenomegaly Skin: no lesions, rashes or trauma appreciated Neuro: AAOx3, normal speech, moving all extremities, 5/5 strength right upper right lower and left lower extremity, 4+ out of 5 strength left upper, cranial nerves II through XII intact normal speech, no ataxia, ambulatory without assistance Extremities:, No palpable deformity; decreased range of motion of left shoulder Psych: Appropriate mood and affect Course Vital Signs Vital signs: Vital Signs Temperature 37.2 C 11/13/21 17:37 Pulse 94 H 11/13/21 17:37 Respiratory Rate 18 11/13/21 17:37 Blood Pressure 160/73 H 11/13/21 17:37 Pulse Oximetry 95 11/13/21 17:37 Temperature 37.2 C 11/13/21 17:37 Temperature Source Temporal Artery Scan 11/13/21 17:37 Pulse 94 H 11/13/21 17:37 Respiratory Rate 18 11/13/21 17:37 Respiratory Effort Non-Labored 11/13/21 18:40 Blood Pressure 160/73 H 11/13/21 17:37 Pulse Oximetry 95 11/13/21 17:37 Oxygen Delivery Method Room Air 11/13/21 17:37 Oxygen Flow Rate 0 11/13/21 17:37
[2021-11-13 19:40] LABS: Abs Immature Grans 0.04 10^3/uL (0.0-0.06); Absolute Basophil Count 0.03 10^3/uL (0.0-0.2); Absolute Eosinophil Count 0.09 10^3/uL (0.0-0.7); Absolute Monocyte Count 0.93 10^3/uL (0.1-0.8); Basophils % 0.2; Eosinophils % 0.7; HCT 39.7 % (36.0-46.0); HGB 13.1 g/dL (11.2-15.7); Immature Grans % 0.3; Lymphocytes % 20.7; MCH 31.6 pg (27.0-33.0); MCV 96 fL (80-95); MPV 9.8 fL (8.0-11.0); Monocytes % 7.4; Neutrophils % 70.7; Platelet Count 182 10^3/uL (130-400); RBC 4.15 10^6/uL (3.93-5.22); RDW 13.3 % (11.7-14.6); RDW-SD 47.3 fL; WBC 12.56 10^3/uL (4.4-10.8)
[2021-11-13 19:41] LABS: Absolute Neutrophil Count 8.88 10^3/uL (1.2-6.7)
[2021-11-13 19:42] LABS: Bilirubin Negative (Negative); Blood Trace-intact (Negative); Clarity Clear (Clear); Glucose Negative (Negative); Ketones Negative (Negative); Leukocyte Esterase Negative (Negative); Nitrite Negative (Negative); Urobilinogen 0.2 EU/dL (Up TO 0.2)
[2021-11-13 19:48] LABS: Bacteria Rare HPF (Negative); C & S Indicated? No/Sq. Contamination; Casts Negative LPF (Negative); Crystals Negative HPF (Negative); Epithelial Cells Many HPF (Negative); Mucus Negative (Negative); RBC 0-2 HPF (0-2); WBC 0-2 HPF (0-5)
[2021-11-13 20:00] LABS: ALT 24 U/L (14-59); AST 23 U/L (15-37); Albumin 4.2 g/dL (3.4-5.0); Alkaline Phosphatase 69 U/L (46-116); Anion Gap 13.2 mmol/L (3-11); BUN 19 mg/dL (7-18); Bilirubin, Total 0.4 mg/dL (0.2-1.0); CO2 24.8 mmol/L (21.0-32.0); CREATININE 1.1 mg/dL (0.55-1.02); Calcium 9.2 mg/dL (8.5-10.1); Chloride 101 mmol/L (98-107); Estimated GFR 47.91 (mL/min/1.73m2); Glucose 95 mg/dL (74-106); Potassium 3.8 mmol/L (3.5-5.1); Sodium 139 mmol/L (136-145); Total Protein 7.1 g/dL (6.4-8.2)
--- NOTE | 2021-11-13 20:02 | DI.VRAD_ITS ---
PROCEDURE INFORMATION: Exam: CT Head Without Contrast Exam date and time: 11/13/2021 7:49 PM Age: 81 years old Clinical indication: Injury or trauma; Concussion/head injury; Consciousness not specified; Injury date: 11/13/21; Injury details: Fall, temporal hematoma TECHNIQUE: Imaging protocol: Computed tomography of the head without contrast. Radiation optimization: All CT scans at this facility use at least one of these dose optimization techniques: automated exposure control; mA and/or kV adjustment per patient size (includes targeted exams where dose is matched to clinical indication); or iterative reconstruction. Other technique: STROKE PROTOCOL was implemented. COMPARISON: MR BRAIN WO/W 04/28/2021 2:12 PM FINDINGS: Brain: Right frontal encephalomalacia. Age related brain involution is present. No acute intracranial hemorrhage, mass effect, midline shift, or brain herniation. Diffuse subcortical and periventricular white matter hypodensities are most in favor with chronic small vessel disease. Cerebral ventricles: There is ex vacuo ventriculomegaly. Paranasal sinuses: Visualized sinuses are unremarkable. No fluid levels. Mastoid air cells: Visualized mastoid air cells are well aerated. Orbital cavities: There have been bilateral intraocular lens replacements. Bones/joints: Unremarkable. No acute fracture. Soft tissues: Unremarkable. IMPRESSION: No acute intracranial pathology. ASSESSMENT: ASPECTS ([place] Stroke Program Early CT Score) is 10. Dictated and Authenticated by: Luan Hurtado MD. Ordering:MARLENA Mars MD
--- NOTE | 2021-11-13 20:03 | DI.VRAD_ITS ---
PROCEDURE INFORMATION: Exam: XR Left Humerus Exam date and time: 11/13/2021 7:54 PM Age: 81 years old Clinical indication: Injury or trauma; Blunt trauma (contusions or hematomas); Arm, upper; Left; Injury date: 11/13/21; Injury details: Fall, arm weakness TECHNIQUE: Imaging protocol: XR Left humerus. Views: 2 or more views. COMPARISON: CR XR shoulder LT complete 2+V 08/31/2018 9:23 AM FINDINGS: Bones/joints: There are mild degenerative changes of the left acromioclavicular joint. There is no evidence of acutely displaced fractures. There is no evidence of joint dislocation. No aggressive osseous lesions. Soft tissues: There is no significant soft tissue swelling. Visualized chest is unremarkable. IMPRESSION: No acute skeletal pathology. Dictated and Authenticated by: Luan Hurtado MD. Ordering:MARLENA Mars MD
[2021-11-13 20:23] VITALS: PULSE 87; RESP 9
[2021-11-13 20:30] VITALS: PULSE 85; RESP 18; O2SAT 93
--- NOTE | 2021-11-14 15:01 | NUR.NOTE ---
Referral faxed to PCP Kristian Rodríguez for CT head findings different from 2020 MRI. Needs MRI with diffusion imaging. To be see within the next week or two. Raina Loyd
== END 2021-11-13 20:46 | disposition home or self-care (01) ==
PROVIDERS: Emergency Provider Emergency Medicine
DX: R53.1 Weakness (principal); R29.6 Repeated falls; S00.03XA Contusion of scalp, initial encounter; W18.39XA Other fall on same level, initial encounter
CPT/HCPCS: 80053; 99284; 70450; 73060; 81003; 81015; 85025

== ENCOUNTER → 2022-02-01 02:06 | Outpatient (CLI) | payer MEDICARE, OTHER, SELFPAY ==
[2022-02-01 08:30] LABS: ALT 282 U/L (14-59); AST 218 U/L (15-37); Albumin 3.6 g/dL (3.4-5.0); Alkaline Phosphatase 697 U/L (46-116); Anion Gap 10.5 mmol/L (3-11); BUN 20 mg/dL (7-18); Bilirubin, Total 0.9 mg/dL (0.2-1.0); CO2 25.5 mmol/L (21.0-32.0); CREATININE 1.2 mg/dL (0.55-1.02); Calcium 9.7 mg/dL (8.5-10.1); Calculated LDL 131 mg/dL (<100); Chloride 101 mmol/L (98-107); Cholesterol 241 mg/dL (<200); Estimated GFR 43.34 (mL/min/1.73m2); Glucose 111 mg/dL (74-106); HDL Cholesterol 94 mg/dL (40-60); Potassium 3.1 mmol/L (3.5-5.1); Sodium 137 mmol/L (136-145); Triglyceride 80 mg/dL (<150)
--- NOTE | 2022-02-01 09:00 | DI.CT_ITS ---
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 TECHNIQUE: Imaging Protocol: Axial CT angiography was performed with multi-slice acquisition and mu lti-planar and/or 3D reconstructions. CONTRAST MATERIAL: Intravenous: Omnipaque 350 Contrast volume:structured data in ml COMPARISON: No exams were available for comparison FINDINGS: CT angiography of the cervical cranial region was performed according to the usual protocol with intr avenous infusion of 85 cc of Omnipaque 350.. Initial noncontrast scanning of the head shows a large remote right frontal infarct as well as bilate ral lacunar infarcts in the basal ganglia period. Visualized lung apices are clear. Visualized portions of thoracic aorta and pulmonary arterial circul ation are unremarkable. There is no evidence of a cervical mass or adenopathy. The tracheal laryngeal structures appear intact. The left common carotid artery shows mild atheromatous change period there is less than 50 percent rub[place]by diameter stenosis at the proximal left internal carotid artery period otherwise the extracrania l left internal carotid artery appears intact. 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 There is left dominant vertebral circulation with a thread-like right vertebral artery. The right ve rtebral artery terminates at the level of the PICA. Left vertebral artery appears intact and robust throughout with the exception a less than 50 percent diameter stenosis at its origin. The intracranial portion of the left internal carotid artery is unremarkable except for minimal ather omatous change. The right internal carotid artery reconstitutes via collateral circulation at its mo st distal extent period. Intracranial vertebral arteries, normal left vertebral artery intracranially, right vertebral artery is thread-like and terminates at what appears to be the level of the PICA.. No aneurysm identified in the region of the [id number]. The anterior, middle, and posterior cer ebral arteries and major branches appear intact with no evidence of aneurysm, stenosis, or dissection . No enhancing brain lesion identified on 5 minutes delayed images.. IMPRESSION: Occluded right common carotid artery. Right internal carotid artery reconstitutes via collateral cir culation in its most distal extent. Left dominant vertebral circulation, a thread-like right vertebral artery terminates at the level of the PICA. 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 RADIATION DOSE DELIVERED: 1,883.3mGy.cmTotal DLP 1,883.3mGy.cm Total DLP !Error CTDIvol DATA REPOSITORY: All CT scans at this facility are submitted to the National Radiology Data Registry (NRDR) Dose Index Registry (DIR) with the [employer] (ACR). RADIATION OPTIMIZATION: All CT scans at this facility use at least one of these dose optimization te chniques: automated exposure control; mA and/or kV adjustment per patient size (includes targeted exa ms where dose is matched to clinical indication); or iterative reconstruction.
[2022-02-01] MEDS: Omnipaque 350 MG/ML 100 ML BTL 85 ML IJ (09:35)
== END ==
PROVIDERS: Visit Provider Psychiatry & Neurology Neurology
DX: E78.2 Mixed hyperlipidemia (principal); F17.200 Nicotine dependence, unspecified, uncomplicated; I10 Essential (primary) hypertension; I73.9 Peripheral vascular disease, unspecified; J41.0 Simple chronic bronchitis; N28.9 Disorder of kidney and ureter, unspecified; I65.21 Occlusion and stenosis of right carotid artery
CPT/HCPCS: 70496; 70498; 80053; 80061; J3490

== ENCOUNTER → 2022-02-05 00:28 | Outpatient (CLI) | payer MEDICARE, OTHER, SELFPAY ==
--- NOTE | 2022-02-05 07:00 | DI.CT_ITS ---
Exam(s) CT CHEST WO EXAM: CT CHEST WO CLINICAL HISTORY: f/u of new nodule noted on CT 08/2021,,SMOKER, LUNG ABNL J98.4,F17.200. TECHNIQUE: Imaging protocol: Axial computed tomography images were obtained and coronal and sagittal reformatted images were created and reviewed. COMPARISON: CT CT CHEST WO from 08/14/2021 FINDINGS: The examination is limited due to patient motion artifact. Tracheobronchial tree: Patent where visualized. Pulmonary parenchyma: No consolidation or dominant measurable mass. Emphysematous changes are seen in the lungs. There are stable pulmonary nodules. No new pulmonary nodules are present. Mediastinum and Natasha: No dominant adenopathy or fluid collection. The esophagus is unremarkable. Thyroid gland: Unremarkable. Pleura: No effusion or pneumothorax. Heart: The heart is not dilated. Coronary artery calcifications are present. Mitral and aortic valvu lar calcifications are present. No pericardial effusion. Aorta: Thoracic aorta non-dilated. Atherosclerosis is present. Upper abdomen: No acute abnormality. Lymph nodes: Within normal limits. Soft tissues: Unremarkable. Bones:Within normal limits for the patient's age. IMPRESSION: Stable pulmonary nodules. Follow-up CT examination in 12 months is recommended for re-evaluation. RADIATION DOSE DELIVERED: 323.5mGy.cm Total DLP 323.5mGy.cm Total DLP DATA REPOSITORY: All CT scans at this facility are submitted to the National Radiology Data Registry (NRDR) Dose Index Registry (DIR) with the [employer] (ACR). RADIATION OPTIMIZATION: All CT scans at this facility use at least one of these dose optimization te chniques: automated exposure control; mA and/or kV adjustment per patient size (includes targeted exa ms where dose is matched to clinical indication); or iterative reconstruction.
--- NOTE | 2022-02-05 07:00 | DI.MAMMO_ITS ---
Exam(s) MAMMO SCREENING EXAM: MAMMO SCREENING CLINICAL HISTORY: screening,Z12.39 TECHNIQUE: Bilateral full field digital CC and MLO mammographic images were obtained with 3D tomosyn thesis and utilizing computer aided detection (CAD). COMPARISON: Available for comparison. FINDINGS: Positioning was compromise secondary to patient prior injury. Masses/Architectural Distortion: None seen. Microcalcifications: No suspicious pleomorphic-type are seen. Skin Thickening/Nipple Retraction: None. IMPRESSION: 1. No significant interval change with no specific features of malignancy noted. 2. Unless there is more urgent need, screening mammography is recommended, as per [place] [employer] guidelines. BI-RADS Category 1 - Negative Breast Density - Category B - Scattered areas of fibroglandular density Breast density category C or D implies that the patient has dense breast tissue. Dense breast tissue is very common and is not abnormal but dense breast tissue can make it harder to find cancer on a ma mmogram. Also, dense breast tissue may increase their breast cancer risk. This information about the result of the mammogram report was provided to the patient to raise their awareness. Use this report when you speak with the patient about their risks for breast cancer, which includes their family hist ory. At that time, you may recommend for more screening tests (Ultrasound or MRI) as they might be us eful based on their risk. A negative radiographic report should not delay biopsy if a dominant or clinically suspicious mass is present. Up to ten percent of cancers are not identified on mammography. A negative report may reinforce clinical impression. Adenosis and dense breasts may obscure an underlying neoplasm. False positive reports average 6 to 10%. Patient will receive a letter notifying them of these results.
--- NOTE | 2022-02-05 07:00 | DI.CT_ITS ---
Exam(s) CT ABDOMEN PELVIS W EXAM: CT ABDOMEN PELVIS W CLINICAL HISTORY: elevated liver enzymes,R74.8 TECHNIQUE: Imaging Protocol: Axial computed tomography images with coronal and sagittal reformatted images were created and reviewed CONTRAST MATERIAL: Intravenous: Omnipaque 350 contrast volume:100 mL Oral: Yes COMPARISON: CT CT CHEST WO from 08/14/[address] BRAIN NECK CTA from 02/01/2022 FINDINGS: ABDOMEN: Lung Bases: Normal where visualized. Liver: Normal density. No measurable mass. Portal, Superior Mesenteric, and Splenic Veins: Unremarkable. Gallbladder and Biliary Tract: No radiodense calculi. The common duct is enlarged measuring 1 cm. Pancreas: Normal density, no abnormal calcifications or inflammatory process. Spleen: Normal. Adrenals: No masses seen. Kidneys: Normal size, contour and axis. Bilateral nephrolithiasis. No hydronephrosis. Tiny hypodens ities are seen in the kidneys. They are too small for further characterization, but likely reflect s mall cysts. Abdominal Aorta: Abdominal portion non-dilated. Atherosclerosis is present. The patient has a aorto bi-iliac graft. Bowel: No obstruction or bowel wall thickening. Appendix is unremarkable. Anastomotic clips are seen in the mid sigmoid colon. Peritoneal Cavity: No ascites, collection or mesenteric inflammatory response. No free air. Lymph Nodes: Within normal limits. Bones: Within normal limits for the patient's age. Soft Tissues: Unremarkable. PELVIS: Bladder: Symmetric distention, no gross wall thickening. Reproductive Organs: Unremarkable as visualized. Lymph Nodes: Within normal limits. Bones: Within normal limits for the patient's age. IMPRESSION: 1. No acute abdominal or pelvic process. 2. Extrahepatic biliary ductal dilatation. No obvious pancreatic mass or stone is seen. Further tee luation with an MRCP/ERCP is recommended. 3. Unremarkable liver. No evidence of a hepatic mass. RADIATION DOSE DELIVERED: 479.36mGy.cm Total DLP DATA REPOSITORY: All CT scans at this facility are submitted to the National Radiology Data Registry (NRDR) Dose Index Registry (DIR) with the [employer] (ACR). RADIATION OPTIMIZATION: All CT scans at this facility use at least one of these dose optimization te chniques: automated exposure control; mA and/or kV adjustment per patient size (includes targeted exa ms where dose is matched to clinical indication); or iterative reconstruction.
[2022-02-05] MEDS: Barium Sulfate 2% W/V-Berry Smoothie 450 ML BTL PO ×2 (07:30→07:31)
[2022-02-05] MEDS: Omnipaque 350 MG/ML 100 ML BTL IJ (09:44)
== END ==
PROVIDERS: Visit Provider Nurse Practitioner
DX: R74.8 Abnormal levels of other serum enzymes (principal); F17.210 Nicotine dependence, cigarettes, uncomplicated; J98.4 Other disorders of lung; Z12.31 Encounter for screening mammogram for malignant neoplasm of breast
CPT/HCPCS: 71250; 77063; 77067; 74177; J3490

== ENCOUNTER 2022-02-09 03:38 | Outpatient (CLI) | payer MEDICARE, OTHER, SELFPAY ==
[2022-02-09 13:19] LABS: Potassium 4.1 mmol/L (3.5-5.1)
[2022-02-10 10:34] LABS: Hepatitis A Antibody IgM Negative (Negative); Hepatitis B Core Antibody Negative (Negative); Hepatitis B surface Ag Negative (Negative); Hepatitis C Ab w Rflx HCV PCR Negative (Negative)
== END 2022-02-09 03:39 | disposition home or self-care (01) ==
LOC: LBO 03:38
PROVIDERS: Visit Provider Nurse Practitioner
DX: E87.6 Hypokalemia (principal); R74.8 Abnormal levels of other serum enzymes
CPT/HCPCS: 36415; 86704; 86709; 86803; 87340; 84132

== ENCOUNTER 2022-02-19 02:00 | Outpatient (RCR) | payer MEDICARE, OTHER, SELFPAY ==
--- NOTE | 2022-02-19 13:00 | HOLTER_ITS ---
APPROVED REPORT Conclusion This is a 48-hour Holter monitor ordered for stroke Predominant rhythm was sinus with an average heart rate of 74. Minimum was 59, maximum 102 There were very rare atrial and ventricular ectopic beats There was no atrial fibrillation, no high-grade AV block, no pauses greater than 3 seconds No patient symptoms were reported
== END 2022-03-03 23:59 | disposition home or self-care (01) ==
LOC: RT 02:00
PROVIDERS: Visit Provider Nurse Practitioner
DX: I63.89 Other cerebral infarction (principal); I49.3 Ventricular premature depolarization
CPT/HCPCS: 93227; 93225; 93226

== ENCOUNTER → 2022-03-01 02:35 | Outpatient (CLI) | payer MEDICARE, OTHER, SELFPAY ==
--- NOTE | 2022-03-01 07:00 | DI.MRI_ITS ---
Exam(s) MR ABDOMEN WO EXAM: MR ABDOMEN WO CLINICAL HISTORY: abnl LFTs, abnl CT, DILATED BILE DUCT, R74.8, K83.8 TECHNIQUE: Multiplanar multisequence MRI of the Abdomen was performed. COMPARISON: CT CT ABDOMEN PELVIS W from 02/05/2022 FINDINGS: Liver: Unremarkable. No evidence of a hepatic mass. Pancreas: Unremarkable. No evidence of a pancreatic mass. Gallbladder and Bile Ducts: The common duct measures up to 9.5 mm. No intrahepatic biliary ductal di latation is seen. There is a question of soft tissue seen in the dependent portion of the distal com mon bile duct. (Series 4001, image 16). Adrenals: Unremarkable. Kidneys: There is a 4 mm simple cyst in the midpole of the right kidney. No follow-up is recommended . The kidneys are otherwise unremarkable. Spleen: Unremarkable. Bowel: Unremarkable. Aorta: No evidence of an aneurysm. Soft Tissues: Unremarkable. Bone: Unremarkable. Lymph Nodes: Unremarkable. IMPRESSION: 1. There is a question of soft tissue mass seen in the dependent portion of the distal common bile du ct. This may represent a debris although a solid mass/neoplasm cannot be excluded. 2. Dilatation of the extrahepatic bile duct. 3. No evidence of a hepatic or pancreatic mass. No evidence of cholelithiasis. DATA REPOSITORY:
== END ==
PROVIDERS: Visit Provider Family Medicine
DX: K83.8 Other specified diseases of biliary tract (principal); R74.8 Abnormal levels of other serum enzymes
CPT/HCPCS: 74181

== ENCOUNTER 2022-04-13 11:30 | Outpatient (CLI) | payer MEDICARE, OTHER, SELFPAY ==
--- NOTE | 2022-04-13 11:15 | DI.RAD_ITS ---
Exam(s) XR SHOULDER LT COMPLETE 2+V EXAM: XR SHOULDER LT COMPLETE 2+V CLINICAL HISTORY: left shoulder pain. TECHNIQUE: 2D digital imaging was performed of the left shoulder. Two images were obtained. AP, Gr ashey, Y-view and axillary views were obtained. COMPARISON: CR XR shoulder LT complete 2+V from 08/31/2018 FINDINGS: BONES: No acute fracture is present. No bony destructive lesion is seen. JOINTS: No dislocation present. Mild degenerative changes are seen at the acromioclavicular and gleno humeral joints. SOFT TISSUE: Normal. IMPRESSION: Mild degenerative changes of the shoulder. DATA REPOSITORY: RADIATION DOSE DELIVERED:
== END 2022-04-13 11:31 | disposition home or self-care (01) ==
LOC: DIORS 11:30
PROVIDERS: Visit Provider Student in an Organized Health Care Education/Training Program
DX: M12.812 Other specific arthropathies, not elsewhere classified, left shoulder; M75.102 Unspecified rotator cuff tear or rupture of left shoulder, not specified as traumatic
CPT/HCPCS: 20610; 99203; 99213; 73030; J1030

== ENCOUNTER → 2022-05-03 02:08 | Outpatient (CLI) | payer MEDICARE, OTHER, MEDICAID, SELFPAY ==
--- NOTE | 2022-05-03 07:15 | DI.US_ITS ---
Exam(s) US CAROTID EXAM: US CAROTID CLINICAL HISTORY: L carotid stenosis,i65.22. TECHNIQUE: Ultrasound carotids performed using grayscale, color-flow, and spectral Doppler imaging. COMPARISON: US US CAROTID from 04/24/[address] BRAIN NECK CTA from 02/01/2022 FINDINGS: RIGHT CAROTID ARTERY: No detectable flow. Visible thrombus. LEFT CAROTID ARTERY: Plaque: Moderate calcific plaque common carotid bulb and proximal internal carotid artery. Velocity elevation: None. VERTEBRAL ARTERIES: Antegrade flow. Measurements: R Bulb: Occluded R CCA: Occluded R ECA: 68.2cm/s PS / 15cm/s ED R ICA Prox: Occluded R ICA Mid: Occluded R ICA Distal: Occluded R Vert: 102.6cm/s PS / 20.6cm/s ED R SVR: N/a R DVR: N/a L Bulb: 164.9cm/s PS / 32.4cm/s ED L CCA: 86.7cm/s PS / 21cm/s ED L ECA: 135cm/s PS / 0cm/s ED L ICA Prox: 147.1cm/s PS / 25.8cm/s ED L ICA Mid: 133.5cm/s PS / 21.4cm/s ED L ICA Distal: 105.5cm/s PS / 19.2cm/s ED L Vert: 112.5cm/s PS / 31.1cm/s ED L SVR: 1.9 L DVR: 1.5 IMPRESSION: Occlusion of the right common through right internal carotid artery. Mainly calcific plaque creating moderate stenosis, 50-69 percent, at the left common carotid bulb and left proximal internal carotid artery. Findings are roughly stable from prior. Criteria for Carotid Stenosis: Normal: ICA PSV <125 cm/s no plaque or intimal thickening is visible. <50% stenosis: ICA PSV <125 cm/s and plaque or intimal thickening is visible. 50-69% stenosis: ICA PSV is 125-250 cm/s and plaque is visible. >70% stenosis to near occlusion: ICA PSV >250 cm/s with visible plaque and luminal narrowing. DATA REPOSITORY:
== END ==
PROVIDERS: Visit Provider Psychiatry & Neurology Neurology
DX: I65.23 Occlusion and stenosis of bilateral carotid arteries
CPT/HCPCS: 93880

== ENCOUNTER 2022-05-17 04:09 | Outpatient (CLI) | payer MEDICARE, OTHER, SELFPAY ==
[2022-05-17 11:04] LABS: ALT 39 U/L (14-59); AST 34 U/L (15-37); Albumin 4.1 g/dL (3.4-5.0); Alkaline Phosphatase 159 U/L (46-116); Anion Gap 8.7 mmol/L (3-11); BUN 33 mg/dL (7-18); Bilirubin, Total 0.3 mg/dL (0.2-1.0); CO2 30.3 mmol/L (21.0-32.0); CREATININE 1.2 mg/dL (0.55-1.02); Calcium 10.2 mg/dL (8.5-10.1); Chloride 103 mmol/L (98-107); Estimated GFR 46.05 (mL/min/1.73m2); Glucose 91 mg/dL (74-106); Potassium 3.3 mmol/L (3.5-5.1); Sodium 142 mmol/L (136-145); Total Protein 7.7 g/dL (6.4-8.2)
== END 2022-05-17 04:10 | disposition home or self-care (01) ==
LOC: LBO 04:09
PROVIDERS: Visit Provider Family Medicine
DX: I10 Essential (primary) hypertension (principal)
CPT/HCPCS: 36415; 80053

== ENCOUNTER 2022-06-21 08:52 | Outpatient (CLI) | payer MEDICARE, OTHER, SELFPAY ==
[2022-06-21 12:25] LABS: Abs Immature Grans 0.02 10^3/uL (0.0-0.06); Absolute Basophil Count 0.03 10^3/uL (0.0-0.2); Absolute Eosinophil Count 0.07 10^3/uL (0.0-0.7); Absolute Lymphocyte Count 2.44 10^3/uL (1.2-3.4); Absolute Monocyte Count 0.87 10^3/uL (0.1-0.8); Absolute Neutrophil Count 7.52 10^3/uL (1.2-6.7); Basophils % 0.3; Eosinophils % 0.6; HCT 42.3 % (36.0-46.0); HGB 13.7 g/dL (11.2-15.7); Immature Grans % 0.2; Lymphocytes % 22.3; MCH 31.9 pg (27.0-33.0); MCHC 32.4 % (32.0-36.0); MCV 99 fL (80-95); MPV 10.9 fL (8.0-11.0); Monocytes % 7.9; Neutrophils % 68.7; Platelet Count 184 10^3/uL (130-400); RBC 4.29 10^6/uL (3.93-5.22); RDW 13.6 % (11.7-14.6); RDW-SD 49.5 fL; WBC 10.95 10^3/uL (4.4-10.8)
[2022-06-21 12:45] LABS: ALT 39 U/L (14-59); AST 37 U/L (15-37); Albumin 3.9 g/dL (3.4-5.0); Alkaline Phosphatase 163 U/L (46-116); Amylase 65 U/L (25-115); Anion Gap 8.6 mmol/L (3-11); BUN 20 mg/dL (7-18); Bilirubin, Total 0.3 mg/dL (0.2-1.0); CO2 29.4 mmol/L (21.0-32.0); CREATININE 1.2 mg/dL (0.55-1.02); Calcium 9.8 mg/dL (8.5-10.1); Chloride 101 mmol/L (98-107); Estimated GFR 46.05 (mL/min/1.73m2); Glucose 99 mg/dL (74-106); Lipase 138 U/L (73-393); Potassium 3.1 mmol/L (3.5-5.1); Sodium 139 mmol/L (136-145); Total Protein 7.6 g/dL (6.4-8.2)
== END 2022-06-21 08:53 | disposition home or self-care (01) ==
LOC: LOS 08:53
PROVIDERS: PCP Nurse Practitioner Family; Visit Provider Nurse Practitioner Family
DX: R10.12 Left upper quadrant pain (principal)
CPT/HCPCS: 36415; 80053; 83690; 82150; 85025

== ENCOUNTER 2022-07-27 02:19 | Outpatient (CLI) | payer MEDICARE, OTHER, SELFPAY ==
--- NOTE | 2022-07-27 10:10 | DI.RAD_ITS ---
Exam(s) XR CHEST 2V PA LATERAL EXAM: XR CHEST 2V PA LATERAL CLINICAL HISTORY: COUGH, R05.8. TECHNIQUE: 2D digital imaging was performed. COMPARISON: CR XR CHEST 2V PA LATERAL from 12/22/2020 FINDINGS: 2 views: Heart size is normal. The mediastinum is not widened. There are no infiltrates evident. There is subsegmental platelike atelectasis in the lateral left rubia ng base. No obvious pleural effusions. No pulmonary edema. IMPRESSION: Subsegmental platelike atelectasis noted in the lateral left lung base. DATA REPOSITORY: RADIATION DOSE DELIVERED:
== END 2022-07-27 02:39 ==
LOC: DI 02:19
PROVIDERS: PCP Nurse Practitioner Family; Visit Provider Nurse Practitioner Family
DX: R05.8 Other specified cough (principal); J98.11 Atelectasis
CPT/HCPCS: 71046

== ENCOUNTER 2022-08-03 17:20 | Outpatient (REF) | payer MEDICARE, OTHER, SELFPAY ==
[2022-08-03 18:15] LABS: Anion Gap 9.6 mmol/L (3-11); BUN 25 mg/dL (7-18); CO2 28.4 mmol/L (21.0-32.0); CREATININE 1.2 mg/dL (0.55-1.02); Calcium 9.7 mg/dL (8.5-10.1); Chloride 104 mmol/L (98-107); Estimated GFR 46.05 (mL/min/1.73m2); Glucose 96 mg/dL (74-106); Potassium 3.6 mmol/L (3.5-5.1); Sodium 142 mmol/L (136-145)
== END 2022-08-03 17:21 | disposition home or self-care (01) ==
LOC: LBN 17:20
PROVIDERS: PCP Nurse Practitioner Family; Visit Provider Nurse Practitioner Family
DX: I10 Essential (primary) hypertension (principal); R05.8 Other specified cough
CPT/HCPCS: 80048; 87070; 87205

== ENCOUNTER 2022-09-23 11:27 | Inpatient (IN) | payer MEDICARE, OTHER, SELFPAY ==
[2022-09-23] VITALS (16 sets, daily range): BP systolic 111–147; BP diastolic 36–113; PULSE 63–103; RESP 16–20; TEMP 36.4–37.6; O2SAT 88–96
[2022-09-23] MEDS: Normal Saline 1,000 ML 1000 ML IV (12:16)
[2022-09-23] MEDS: methylPREDNISolone SUCC 125 MG VIAL 80 MG IVP (12:17)
[2022-09-23 12:18] LABS: Lactate 0.9 mmol/L (0.6-1.4)
[2022-09-23 12:19] LABS: Abs Immature Grans 0.05 10^3/uL (0.0-0.06); Absolute Basophil Count 0.01 10^3/uL (0.0-0.2); Absolute Monocyte Count 1.29 10^3/uL (0.1-0.8); Basophils % 0.1; HCT 34.2 % (36.0-46.0); Immature Grans % 0.4; Lymphocytes % 8.5; MCH 30.9 pg (27.0-33.0); MCHC 32.2 % (32.0-36.0); MCV 96 fL (80-95); MPV 10.1 fL (8.0-11.0); Platelet Count 156 10^3/uL (130-400); RBC 3.56 10^6/uL (3.93-5.22); RDW 13.8 % (11.7-14.6); RDW-SD 49.4 fL; WBC 12.89 10^3/uL (4.4-10.8)
[2022-09-23] MEDS: Albuterol/Ipratropium 3 ML UPD VIAL UPD (12:20)
[2022-09-23 12:25] LABS: Absolute Neutrophil Count 10.44 10^3/uL (1.2-6.7)
[2022-09-23 12:44] LABS: ALT 133 U/L (14-59); AST 138 U/L (15-37); Albumin 3.4 g/dL (3.4-5.0); Alkaline Phosphatase 191 U/L (46-116); Anion Gap 9.2 mmol/L (3-11); BUN 40 mg/dL (7-18); Bilirubin, Total 0.5 mg/dL (0.2-1.0); CO2 26.8 mmol/L (21.0-32.0); CREATININE 1.4 mg/dL (0.55-1.02); Calcium 9.1 mg/dL (8.5-10.1); Chloride 107 mmol/L (98-107); Estimated GFR 38.27 (mL/min/1.73m2); Glucose 129 mg/dL (74-106); Lipase 30 U/L (16-77); NT-proBNP 751 pg/mL (<300); Potassium 3.3 mmol/L (3.5-5.1); Sodium 143 mmol/L (136-145); Total Protein 7.1 g/dL (6.4-8.2); Troponin I < 50 ng/L (<or=60)
[2022-09-23 12:55] LABS: COVID-19 PCR Negative (Negative); Influenza A PCR Negative (Negative); Influenza B PCR Negative (Negative); RSV PCR Negative (Negative)
[2022-09-23 12:56] LABS: Source Nasopharynx
[2022-09-23 13:31] LABS: Bilirubin Negative (Negative); Blood Trace-intact (Negative); Clarity Clear (Clear); Glucose Negative (Negative); Ketones Negative (Negative); Leukocyte Esterase Negative (Negative); Nitrite Negative (Negative); Urobilinogen 0.2 mg/dL (Up to 0.2)
[2022-09-23 13:50] LABS: Bacteria Rare HPF (Negative); C & S Indicated? No; Casts Negative LPF (Negative); Crystals Negative HPF (Negative); Epithelial Cells Rare HPF (Negative); Mucus Negative (Negative); RBC 0-2 HPF (0-2); WBC Negative HPF (0-5)
--- NOTE | 2022-09-23 14:25 | DI.RAD_ITS ---
Exam(s) XR CHEST 2V PA LATERAL EXAM: XR CHEST 2V PA LATERAL CLINICAL HISTORY: cough, shortness of breath TECHNIQUE: 2D digital imaging was performed of the chest. Two images were obtained. PA and lateral views were obtained. COMPARISON: CR XR CHEST 2V PA LATERAL from 07/27/2022 FINDINGS: MEDIASTINUM: Normal. HEART: Normal. PULMONARY VASCULATURE: Normal. LUNGS: Chronic interstitial changes are seen in the lungs. No focal consolidating infiltrates. PLEURAL SPACE: No pleural effusion or pneumothorax. BONE:Within normal limits for the patient's age. OTHER FINDINGS:Normal. IMPRESSION: No acute pulmonary findings. DATA REPOSITORY: RADIATION DOSE DELIVERED:
--- NOTE | 2022-09-23 15:06 | ED.GENADUL_ITS ---
Discharge Plan Disposition Condition: Improving Discharge Details Chief Complaint: GenMedical Admit Date/Time: 09/26/22 12:44 Admit Provider: Dheeraj Vasquez Attending Provider: Dheeraj Vasquez Primary Care Provider: Samir Casillas ED Provider: Cheyanne Hyatt Discharge Instructions Equipment/Supplies: Walker Activity:: Activity as Tolerated Activity:: Activity as Tolerated Equipment/Supplies:: Walker Diet:: DASH Discharge Orders Discharge Orders: Discharge Order (Routine); Ordered 09/27/22 Ordered By: Olivia Castro Discharge Data Discharge Date/Time-TO BE ENTERED AT DEPARTURE: 09/23/22 17:47 Medical Decision Making 81-year-old female presents with weakness, cough, and shortness of breath Her vitals are stable here, she looks chronically unwell, secondary to complaints and exam I did order chest x-ray, diagnostic labs, fluids, DuoNeb, steroids Patient feels mild improvement, ambulatory trial was assessed in hopes of discharging patient home, however she is unable to ambulate and is a two-person assist, she lives independently with son upstairs At this time I feel as though she is too weak to be discharged from our hospital, her creatinine is elevated 1.4, increased from prior and her BUN is increased from 20-40 Gave 1 L of normal saline, will give IV hydration infusion Will treat with doxycycline and ceftriaxone for suspected bronchitis versus pneumonia Patient was reassessed, she is unable to stand independently secondary to weakness She will be admitted to the hospital for further evaluation, IV antibiotics, reassessment, case discussed with Dr. Yarbrough within is agreeable to admission at this time Lab Data Lab results reviewed: Yes I reviewed the patient's lab results. HPI General Date/Time Provider Initiated Documentation: 09/23/22 11:36 . HPI Narrative: This 81-year-old female with history of COPD, essential hypertension, hyperlipidemia, peripheral vascular disease, CVA with left-sided deficit presents with report of weakness which started yesterday, she describes it as generalized weakness. States she also had cough and shortness of breath. She short of breath with exertion. She denies any fever or chills. She does not have a rescue inhaler and is only taking her baseline inhalers. She states she is unable to get out of bed secondary to weakness and lives at home with her son. She denies any falls or injuries. Related Data Home Medications Medication Instructions Recorded Confirmed multivit with 1 tab PO DAILY 07/18/20 09/23/22 jesdnuie-rbyg-RB-lutein 8 mg iron-400 mcg-300 mcg tablet (Centrum Silver Women) lisinopril 20 1 tab PO DAILY #90 tabs 05/11/22 09/23/22 mg-hydrochlorothiazide 25 mg tablet rosuvastatin 40 mg tablet 40 mg PO DAILY #90 tabs 05/24/22 09/23/22 ketoconazole 2 % shampoo 1 applic topical .Twice a week PRN 06/21/22 09/23/22 seborrheic derm #120 mL umeclidinium 62.5 mcg/actuation 1 inh inhalation DAILY #30 ea 06/21/22 09/23/22 blister powder for inhalation (Incruse Ellipta) aspirin 81 mg tablet,delayed 81 mg PO DAILY 09/23/22 09/23/22 release benzonatate 100 mg capsule 100 mg PO DAILY 09/23/22 09/23/22 fluticasone propionate 50 1 spray intranasal DAILY 09/23/22 09/23/22 mcg/actuation nasal spray,suspension (Flonase Allergy Relief) mometasone 0.1 % topical cream 1 applic topical BID 09/23/22 09/23/22 neomycin 3.5 mg/g-polymyxin B 1 applic ophthalmic (eye) TID 09/23/22 09/23/22 10,000 unit/g-dexameth 0.1 % eye oint nicotine (polacrilex) 4 mg gum 4 mg buccal Q2H 09/23/22 09/23/22 nicotine 21 mg/24 hr daily 1 patch transdermal DAILY 09/23/22 09/23/22 transdermal patch sertraline 100 mg tablet 100 mg PO DAILY 09/23/22 09/23/22 tizanidine 4 mg tablet 4 mg PO BID 09/23/22 09/23/22 albuterol sulfate 90 mcg/actuation 2 puff inhalation 6XD PRN #8.5 09/27/22 aerosol inhaler grams doxycycline hyclate 100 mg capsule 100 mg PO BID #8 caps 09/27/22 potassium chloride 20 mEq 40 meq PO DAILY #30 tabs 09/27/22 tablet,extended release(part/cryst) prednisone 20 mg tablet 40 mg PO DAILY #10 tabs 09/27/22 Previous Rx's Medication Instructions Recorded lisinopril 20 1 tab PO DAILY #90 tabs 05/11/22 mg-hydrochlorothiazide 25 mg tablet rosuvastatin 40 mg tablet 40 mg PO DAILY #90 tabs 05/24/22 ketoconazole 2 % shampoo 1 applic topical .Twice a week PRN 06/21/22 seborrheic derm #120 mL umeclidinium 62.5 mcg/actuation 1 inh inhalation DAILY #30 ea 06/21/22 blister powder for inhalation (Incruse Ellipta) albuterol sulfate 90 mcg/actuation 2 puff inhalation 6XD PRN #8.5 09/27/22 aerosol inhaler grams doxycycline hyclate 100 mg capsule 100 mg PO BID #8 caps 09/27/22 potassium chloride 20 mEq 40 meq PO DAILY #30 tabs 09/27/22 tablet,extended release(part/cryst) prednisone 20 mg tablet 40 mg PO DAILY #10 tabs 09/27/22 Allergies Allergy/AdvReac Type Severity Reaction Status Date / Time baclofen AdvReac Intermediate mental Verified 09/23/22 11:33 status changes General Stated Complaint: GenMedical IFTIKHAR: 3 PFSH All Active Problems Chronic obstructive lung disease (Chronic) PFT'S 2009 FEV 1.15=59% continues to smoke Constipation (Chronic 11/14/17) Essential hypertension (Chronic 03/30/13) Lumbago (Chronic 05/10/13) Peripheral vascular disease (Acute) Jul 2014 [facility] [place] aorto bifem bypass LEFT ILIAC STENT [facility] [place] 03/2010 Polyp of colon (Acute) tubular adenoma Shoulder arthralgia (Chronic) Carotid stenosis, left (Acute) 50-69% stenosis 04/2022; complete obstruction right internal carotid. Anxiety about health (Acute) Grief reaction (Chronic) Spouse 08/13/21 passed Hand pain, left (Acute) CVA (cerebral vascular accident) (Chronic) Neuro est. between 04/2020-11/2021 Counseling regarding advanced directives and goals of care (Acute) Dilated bile duct (Acute ~02/2022) s/p ERCP [facility], 10mm dilation, no masses. Due repeat MRI in 10/2022. Left rotator cuff tear arthropathy (Chronic) 40 mg Depo-Medrol injection: 04/13/2022 Nail dystrophy (Acute) Left upper quadrant abdominal pain (Acute) Seborrheic dermatitis of scalp (Acute) Productive cough (Acute) History of tobacco abuse (Acute) Medical History Disorder of ear, left Diverticulitis of colon H/O SIGMOID COLECTOMY Perichondritis Smoker (10/19/16) Surgical History Extraction of cataract B/L 04/2013 Ligation of fallopian tube Rotator Cuff Repair RIGHT S/P partial colectomy Trigger Finger release WRIST/THUMB SURGERY LEFT THUMB LEFT WRIST RIGHT THUMB Family History Mother Diabetes Essential hypertension Stroke Father , 55 Heart disease Stroke Brother , 71 Complications from surgery No problems noted. Son No problems noted. Son No problems noted. Daughter No problems noted. Daughter No problems noted. Social History Smoking/Tobacco Use Status: Current every day Tobacco Type: cigarettes Smoking packs per day: 0.5 Smoking cigarettes per day: 10.0 Years smoked: 63 Smoking pack-years: 31.50 Tobacco: How many years used: 63 Quit status: considering quitting Second Hand Exposure: Yes Smoking risk assessment performed?: Yes Alcohol Intake: never Drug use: Rarely Counseling given: No Counseling provided: none Caregiver/Support person: No Household members: none Housing: house Number of Children: 4 Communication Needs: Hard of Hearing Do you need help understanding health information?: Rarely Pets and animals: Yes Pets and animals: dog(s) Sexually active: No Do you think of yourself as: straight/heterosexual Current gender identity: female What is your relationship status?: How often do you talk on the phone with friends or family?: three or more times per week Do you belong to any clubs or organized social groups?: no Panel score (0-1 are the most socially isolated patients): 1 What type of physical activity do you participate in: none Darlene/Pentecostal: No preference Special darlene needs: No Seatbelt use: always Helmet use: No Drive intox or ride w/intox auto haulaway driver: No Do you feel safe at home: Yes Do you feel safe in your relationship?: Yes Exam Const General: cooperative, well groomed and frail appearing HENMT Head: normal to inspection Resp Auscultation: wheezes Cardio Rate: regular rate Rhythm: regular rhythm Skin General skin exam: no rashes or lesions noted Neuro General: patient alert and patient oriented x3 Course Vital Signs Vital signs: Vital Signs Temperature 37.2 C 09/23/22 11:30 Pulse 72 09/23/22 11:30 Respiratory Rate 18 09/23/22 11:30 Pulse Oximetry 96 09/23/22 11:30 Temperature 37.2 C 09/23/22 11:30 Temperature Source Oral 09/23/22 11:30 Pulse 72 09/23/22 11:30 Pulse 88 09/23/22 14:15 Respiratory Rate 16 09/23/22 14:15 Respiratory Effort Normal 09/23/22 13:18 Respiratory Depth Normal 09/23/22 13:18 Respiratory Pattern Normal 09/23/22 13:18 Blood Pressure 111/36 L 09/23/22 11:34 Pulse Oximetry 93 09/23/22 14:15 Oxygen Delivery Method Room Air 09/23/22 11:30 Oxygen Flow Rate 0 09/23/22 11:30 Lab/Test Results Lab/Test Results: Laboratory Tests Range/Units 09/23/22 09/23/22 09/23/22 12:08 12:08 12:08 WBC (4.4-10.8) 10^3/uL 12.89 H RBC (3.93-5.22) 10^6/uL 3.56 L Hgb (11.2-15.7) g/dL 11.0 L Hct (36.0-46.0) % 34.2 L MCV (80-95) fL 96 H MCH (27.0-33.0) pg 30.9 MCHC (32.0-36.0) % 32.2 RDW (11.7-14.6) % 13.8 Plt Count (130-400) 10^3/uL 156 MPV (8.0-11.0) fL 10.1 Immature Gran % 0.4 Neutrophils % 81.0 Lymphocytes % 8.5 Monocytes % 10.0 Eosinophils % 0.0 Basophils % 0.1 Nucleated RBC % (0.0-0.3) % 0.0 Absolute Neutrophils (1.2-6.7) 10^3/uL 10.44 H Absolute Lymphocytes (1.2-3.4) 10^3/uL 1.10 L Absolute Monocytes (0.1-0.8) 10^3/uL 1.29 H Absolute Eosinophils (0.0-0.7) 10^3/uL 0.00 Absolute Basophils (0.0-0.2) 10^3/uL 0.01 VBG Lactate (0.6-1.4) mmol/L 0.9 Sodium (136-145) mmol/L 143 Potassium (3.5-5.1) mmol/L 3.3 L Chloride (98-107) mmol/L 107 Carbon Dioxide (21.0-32.0) mmol/L 26.8 Anion Gap (3-11) mmol/L 9.2 BUN (7-18) mg/dL 40 H Creatinine (0.55-1.02) mg/dL 1.4 H Est GFR (CKD-EPI 2020) (mL/min/1.73m2) 38.27 Glucose (74-106) mg/dL 129 H Calcium (8.5-10.1) mg/dL 9.1 Total Bilirubin (0.2-1.0) mg/dL 0.5 AST (15-37) U/L 138 H ALT (14-59) U/L 133 H Alkaline Phosphatase (46-116) U/L 191 H Troponin I (<or=60) ng/L < 50 NT-Pro-B Natriuret Pep (<300) pg/mL 751 H Total Protein (6.4-8.2) g/dL 7.1 Albumin (3.4-5.0) g/dL 3.4 Lipase (16-77) U/L 30 Urine Color (Yellow) Urine Clarity (Clear) Urine pH (5-8) Ur Specific Lulu (1.005-1.025) Urine Protein (Negative) mg/dL Urine Ketones (Negative) mg/dL Urine Blood (Negative) Urine Nitrite (Negative) Urine Bilirubin (Negative) Urine Urobilinogen (Up to 0.2) mg/dL Ur Leukocyte Esterase (Negative) Urine RBC (0-2) HPF Urine WBC (0-5) HPF Ur Epithelial Cells (Negative) HPF Urine Crystals (Negative) HPF Urine Bacteria (Negative) HPF Urine Casts (Negative) LPF Urine Mucus (Negative) Ur Culture Indicated? Urine Glucose (Negative) mg/dL COVID-19 Source SARS-CoV-2 (PCR) (Negative) Influenza Type A (PCR) (Negative) Influenza Type B (PCR) (Negative) RSV (PCR) (Negative) Range/Units 09/23/22 09/23/22 12:09 13:02 WBC (4.4-10.8) 10^3/uL RBC (3.93-5.22) 10^6/uL Hgb (11.2-15.7) g/dL Hct (36.0-46.0) % MCV (80-95) fL MCH (27.0-33.0) pg MCHC (32.0-36.0) % RDW (11.7-14.6) % Plt Count (130-400) 10^3/uL MPV (8.0-11.0) fL Immature Gran % Neutrophils % Lymphocytes % Monocytes % Eosinophils % Basophils % Nucleated RBC % (0.0-0.3) % Absolute Neutrophils (1.2-6.7) 10^3/uL Absolute Lymphocytes (1.2-3.4) 10^3/uL Absolute Monocytes (0.1-0.8) 10^3/uL Absolute Eosinophils (0.0-0.7) 10^3/uL Absolute Basophils (0.0-0.2) 10^3/uL VBG Lactate (0.6-1.4) mmol/L Sodium (136-145) mmol/L Potassium (3.5-5.1) mmol/L Chloride (98-107) mmol/L Carbon Dioxide (21.0-32.0) mmol/L Anion Gap (3-11) mmol/L BUN (7-18) mg/dL Creatinine (0.55-1.02) mg/dL Est GFR (CKD-EPI 2020) (mL/min/1.73m2) Glucose (74-106) mg/dL Calcium (8.5-10.1) mg/dL Total Bilirubin (0.2-1.0) mg/dL AST (15-37) U/L ALT (14-59) U/L Alkaline Phosphatase (46-116) U/L Troponin I (<or=60) ng/L NT-Pro-B Natriuret Pep (<300) pg/mL Total Protein (6.4-8.2) g/dL Albumin (3.4-5.0) g/dL Lipase (16-77) U/L Urine Color (Yellow) Yellow Urine Clarity (Clear) Clear Urine pH (5-8) 6.0 Ur Specific Lulu (1.005-1.025) 1.020 Urine Protein (Negative) mg/dL 30 H Urine Ketones (Negative) mg/dL Negative Urine Blood (Negative) Trace-intact H Urine Nitrite (Negative) Negative Urine Bilirubin (Negative) Negative Urine Urobilinogen (Up to 0.2) mg/dL 0.2 Ur Leukocyte Esterase (Negative) Negative Urine RBC (0-2) HPF 0-2 Urine WBC (0-5) HPF Negative Ur Epithelial Cells (Negative) HPF Rare Urine Crystals (Negative) HPF Negative Urine Bacteria (Negative) HPF Rare Urine Casts (Negative) LPF Negative Urine Mucus (Negative) Negative Ur Culture Indicated? No Urine Glucose (Negative) mg/dL Negative COVID-19 Source Nasopharynx SARS-CoV-2 (PCR) (Negative) Negative Influenza Type A (PCR) (Negative) Negative Influenza Type B (PCR) (Negative) Negative RSV (PCR) (Negative) Negative
[2022-09-23 15:36] LABS: Troponin I < 50 ng/L (<or=60)
--- NOTE | 2022-09-23 18:50 | HPE_ITS ---
Date of service: 09/23/22 Time of Service: 14:00 Assessment and Plan Assessment and plan (1) Chronic obstructive lung disease: Status: Acute Assessment and plan: Difficulty breathing with exertion; she has smoked all of her adult life. Nebs, nicotine replacement, oxygen as needed; Prednisone; Tussionex Qualifiers: COPD type: chronic bronchitis Chronic bronchitis type: simple Qualified Code(s): J41.0 - Simple chronic bronchitis (2) Essential hypertension: Status: Chronic Assessment and plan: Stable, continue home meds (3) Hyperlipidemia: Status: Chronic Assessment and plan: Stable, continue home meds Qualifiers: Hyperlipidemia type: mixed hyperlipidemia Qualified Code(s): E78.2 - Mixed hyperlipidemia (4) Seizures: Status: Chronic Assessment and plan: Stable - reports no recent seizures. (5) Grief reaction: Status: Chronic Assessment and plan: Her dog of 10 years on Tuesday, very upset (6) CVA (cerebral vascular accident): Status: Chronic Assessment and plan: Previous; CT of head, no change (7) DVT prophylaxis: Status: Acute Assessment and plan: Enoxaparin (8) Discharge planning issues: Status: Acute Assessment and plan: She would like to go to short stay rehab, care mgrs are working on that Discussed with Dr Vasquez History of Present Illness History of Present Illness Chief Complaint: Weakness Narrative: 81-year-old female patient with past medical history of COPD, essential hypertension, hyperlipidemia, peripheral vascular disease, and CVA with left- sided deficit presented to the [facility] ED with weakness, cough, and shortness of breath. X-ray, diagnostic labs, fluids, DuoNeb, steroids in ED. Patient felt mild improvement, ambulatory trial was assessed and she was unable to ambulate and is a two-person assist - this is worse, she lives independently with son upstairs. Creatinine is elevated from baseline at 1.4, and her BUN is increased from 20-40. She was given 1 L of normal saline in the ED. The ED started her on oral doxycycline and IV Ceftriaxone for suspected bronchitis versus pneumonia. She was admitted to the medical floor for further treatment and strengthening. Discussed with Dr Renee Review of Systems All systems reviewed & are unremarkable except as noted in HPI and below PFSH All Active Problems Discharge planning issues (Acute) DVT prophylaxis (Acute) Chronic obstructive lung disease (Acute) PFT'S 2009 FEV 1.15=59% continues to smoke Constipation (Chronic 11/14/17) Essential hypertension (Chronic 03/30/13) Hyperlipidemia (Chronic) Lumbago (Chronic 05/10/13) Peripheral vascular disease (Acute) Jul [place] [facility] [place]IAC STENT [facility] [place] Polyp of colon (Acute) tubular adenoma Shoulder arthralgia (Chronic) Seizures (Chronic) Carotid stenosis, left (Acute) 50-69% stenosis 04/2022; complete obstruction right internal carotid. Anxiety about health (Acute) Grief reaction (Chronic) Spouse 08/13/21 passed Hand pain, left (Acute) CVA (cerebral vascular accident) (Chronic) Neuro est. between 04/2020-11/2021 Counseling regarding advanced directives and goals of care (Acute) Dilated bile duct (Acute ~02/2022) s/p ERCP [facility], 10mm dilation, no masses. Due repeat MRI in 10/2022. Left rotator cuff tear arthropathy (Chronic) 40 mg Depo-Medrol injection: 04/13/2022 Nail dystrophy (Acute) Left upper quadrant abdominal pain (Acute) Seborrheic dermatitis of scalp (Acute) Productive cough (Acute) History of tobacco abuse (Acute) Medical History Disorder of ear, left Diverticulitis of colon H/O SIGMOID COLECTOMY Perichondritis Smoker (10/19/16) Surgical History Extraction of cataract B/L 04/2013 Ligation of fallopian tube Rotator Cuff Repair RIGHT S/P partial colectomy Trigger Finger release WRIST/THUMB SURGERY LEFT THUMB LEFT WRIST RIGHT THUMB Family History Mother Diabetes Essential hypertension Stroke Father , 55 Heart disease Stroke Brother , 71 Complications from surgery No problems noted. Son No problems noted. Son No problems noted. Daughter No problems noted. Daughter No problems noted. Social History Smoking/Tobacco Use Status: Current every day Tobacco Type: cigarettes Smoking packs per day: 0.5 Smoking cigarettes per day: 10.0 Years smoked: 63 Smoking pack-years: 31.50 Tobacco: How many years used: 63 Quit status: considering quitting Second Hand Exposure: Yes Smoking risk assessment performed?: Yes Alcohol Intake: never Drug use: Rarely Counseling given: No Counseling provided: none Caregiver/Support person: No Household members: none Housing: house Number of Children: 4 Communication Needs: Hard of Hearing Do you need help understanding health information?: Rarely Pets and animals: Yes Pets and animals: dog(s) Sexually active: No Do you think of yourself as: straight/heterosexual Current gender identity: female What is your relationship status?: How often do you talk on the phone with friends or family?: three or more times per week Do you belong to any clubs or organized social groups?: no Panel score (0-1 are the most socially isolated patients): 1 What type of physical activity do you participate in: none Darlene/Mormon: No preference Special darlene needs: No Seatbelt use: always Helmet use: No Drive intox or ride w/intox 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: No Do you feel safe at home: Yes Do you feel safe in your relationship?: Yes Meds Allergies and Home Medications Allergies Allergy/AdvReac Type Severity Reaction Status Date / Time baclofen AdvReac Intermediate mental Verified 09/23/22 11:33 status changes Home Medications Medication Instructions Recorded Confirmed Type multivit with 1 tab PO DAILY 07/18/20 09/23/22 History qgknwxnd-eeno-XT-lutein 8 mg iron-400 mcg-300 mcg tablet (Centrum Silver Women) lisinopril 20 1 tab PO DAILY #90 tabs 05/11/22 09/23/22 Rx mg-hydrochlorothiazide 25 mg tablet rosuvastatin 40 mg tablet 40 mg PO DAILY #90 tabs 05/24/22 09/23/22 Rx ketoconazole 2 % shampoo 1 applic topical .Twice a week PRN 06/21/22 09/23/22 Rx seborrheic derm #120 mL umeclidinium 62.5 mcg/actuation 1 inh inhalation DAILY #30 ea 06/21/22 09/23/22 Rx blister powder for inhalation (Incruse Ellipta) aspirin 81 mg tablet,delayed 81 mg PO DAILY 09/23/22 09/23/22 History release benzonatate 100 mg capsule 100 mg PO DAILY 09/23/22 09/23/22 History fluticasone propionate 50 1 spray intranasal DAILY 09/23/22 09/23/22 History mcg/actuation nasal spray,suspension (Flonase Allergy Relief) mometasone 0.1 % topical cream 1 applic topical BID 09/23/22 09/23/22 History neomycin 3.5 mg/g-polymyxin B 1 applic ophthalmic (eye) TID 09/23/22 09/23/22 History 10,000 unit/g-dexameth 0.1 % eye oint nicotine (polacrilex) 4 mg gum 4 mg buccal Q2H 09/23/22 09/23/22 History nicotine 21 mg/24 hr daily 1 patch transdermal DAILY 09/23/22 09/23/22 History transdermal patch potassium chloride 10 mEq 10 meq PO BID 09/23/22 09/23/22 History capsule,extended release sertraline 100 mg tablet 100 mg PO DAILY 09/23/22 09/23/22 History tizanidine 4 mg tablet 4 mg PO BID 09/23/22 09/23/22 History Exam Narrative Exam Narrative: Physical Examination General: alert, awake, cooperative, resting comfortably, no acute distress HEENT: normocephalic, atraumatic; PERRL, EOM intact, conjunctiva normal; no nasal discharge; moist mucous membranes, oral and pharyngeal mucosa normal, tolerating secretions Neck: supple, trachea midline; full ROM Chest: normal to inspection Respiratory: normal respiratory effort, speaking in full sentences, clear to auscultation, no wheezing, rales or rhonchi Cardiac: regular rate, regular rhythm, S1S2 intact, no murmurs rubs or gallops GI: abdomen soft, non-tender, non-distended; no palpable mass or hepatosplenomegaly Skin: no lesions, rashes or trauma appreciated Neuro: AAOx3, normal speech, moving all extremities, 5/5 strength right upper right lower and left lower extremity, 4+ out of 5 strength left upper, cranial nerves II through XII intact normal speech, no ataxia, ambulatory without assistance Extremities:, No palpable deformity; decreased range of motion of left shoulder Psych: Appropriate mood and affect Results Labs 09/23/22 12:08 09/23/22 12:08 Labs: Laboratory Results - last 24 hr 09/23/22 09/23/22 09/23/22 12:08 12:08 12:08 WBC 12.89 H RBC 3.56 L Hgb 11.0 L Hct 34.2 L MCV 96 H MCH 30.9 MCHC 32.2 RDW 13.8 Plt Count 156 MPV 10.1 Immature Gran % 0.4 Neutrophils % 81.0 Lymphocytes % 8.5 Monocytes % 10.0 Eosinophils % 0.0 Basophils % 0.1 Nucleated RBC % 0.0 Absolute Neutrophils 10.44 H Absolute Lymphocytes 1.10 L Absolute Monocytes 1.29 H Absolute Eosinophils 0.00 Absolute Basophils 0.01 VBG Lactate 0.9 Sodium 143 Potassium 3.3 L Chloride 107 Carbon Dioxide 26.8 Anion Gap 9.2 BUN 40 H Creatinine 1.4 H Est GFR (CKD-EPI 2020) 38.27 Glucose 129 H Calcium 9.1 Total Bilirubin 0.5 AST 138 H ALT 133 H Alkaline Phosphatase 191 H Troponin I < 50 NT-Pro-B Natriuret Pep 751 H Total Protein 7.1 Albumin 3.4 Lipase 30 Urine Color Urine Clarity Urine pH Ur Specific Stanton Urine Protein Urine Ketones Urine Blood Urine Nitrite Urine Bilirubin Urine Urobilinogen Ur Leukocyte Esterase Urine RBC Urine WBC Ur Epithelial Cells Urine Crystals Urine Bacteria Urine Casts Urine Mucus Ur Culture Indicated? Urine Glucose COVID-19 Source SARS-CoV-2 (PCR) Influenza Type A (PCR) Influenza Type B (PCR) RSV (PCR) 09/23/22 09/23/22 09/23/22 12:09 13:02 15:00 WBC RBC Hgb Hct MCV MCH MCHC RDW Plt Count MPV Immature Gran % Neutrophils % Lymphocytes % Monocytes % Eosinophils % Basophils % Nucleated RBC % Absolute Neutrophils Absolute Lymphocytes Absolute Monocytes Absolute Eosinophils Absolute Basophils VBG Lactate Sodium Potassium Chloride Carbon Dioxide Anion Gap BUN Creatinine Est GFR (CKD-EPI 2020) Glucose Calcium Total Bilirubin AST ALT Alkaline Phosphatase Troponin I < 50 NT-Pro-B Natriuret Pep Total Protein Albumin Lipase Urine Color Yellow Urine Clarity Clear Urine pH 6.0 Ur Specific Stanton 1.020 Urine Protein 30 H Urine Ketones Negative Urine Blood Trace-intact H Urine Nitrite Negative Urine Bilirubin Negative Urine Urobilinogen 0.2 Ur Leukocyte Esterase Negative Urine RBC 0-2 Urine WBC Negative Ur Epithelial Cells Rare Urine Crystals Negative Urine Bacteria Rare Urine Casts Negative Urine Mucus Negative Ur Culture Indicated? No Urine Glucose Negative COVID-19 Source Nasopharynx SARS-CoV-2 (PCR) Negative Influenza Type A (PCR) Negative Influenza Type B (PCR) Negative RSV (PCR) Negative Last Vital Signs Temp 37.6 C H 09/23/22 17:57 Pulse 78 09/23/22 17:57 Resp 16 09/23/22 17:57 BP 133/55 L 09/23/22 17:57 Pulse Ox 94 09/23/22 17:57 Time Spent Time spent with Patient: 55-74 minutes Time was spent: preparing to see the patient(eg.review tests), ordering medications,tests, procedures, referring, communicating with other health customer care representative, indepentently interpreting results, counseling the patient and care coordination
--- NOTE | 2022-09-23 19:13 | TELEP.MEDREC ---
Date of service: 09/23/22 Time of Service: 19:13 Telepharmacy Home Med Rec Allergies Allergies: baclofen Adverse Reaction (Intermediate, Verified 09/23/22 11:33) mental status changes Interview Person Interviewed: Patient Quality Quality of Interview/Accuracy of Medication List: Good Sources Sources used to compile medication list: [email or web address] Medication List Changes made to Home Medication List: ADDITIONS: Tljtqqja-wzfqywvlmY-fapaxfr opthalmic oint apply TID to eyelid Mometasone 0.1% topically to ears bid as directed Nicotine 24 mg patch daily Nicotine 4 mg gum q2H prn DELETIONS: None CHANGES: Aspirin EC 81 mg daily Potassium chloride 10 MEQ BID Additional Notes Additional Notes: Patient takes all daily medications at night. Recommended Changes Recommended Changes(reason for recommendation): none Attestation: The home medication list is now updated to the best of my knowledge and is ready to be reconciled by the provider. Please contact the TelePharmacy Medication Reconciliation Pharmacist at for any questions.
--- NOTE | 2022-09-23 19:13 | TELEP.MEDR_ITS ---
Date of service: 09/23/22 [facility] Allergies: baclofen Adverse Reaction (Intermediate, Verified 09/23/22 11:33) mental status changes Interview Person Interviewed: Patient Quality Quality of Interview/Accuracy of Medication List: Good Sources Sources used to compile medication list: [facility] Medication List Changes made to Home Medication List: ADDITIONS: * Vlocvfbw-ygpeuhryoH-xyrjfpu opthalmic oint apply TID to eyelid * Mometasone 0.1% topically to ears bid as directed * Nicotine 24 mg patch daily * Nicotine 4 mg gum q2H prn DELETIONS: * None CHANGES: * Aspirin EC 81 mg daily * Potassium chloride 10 MEQ BID Additional Notes Additional Notes: * Patient takes all daily medications at night. Recommended Changes Recommended Changes(reason for recommendation): * none Attestation: The home medication list is now updated to the best of my knowledge and is ready to be reconciled by the provider. Please [facility] the [facility] Med[facility] Pharmacist at for any questions.
[2022-09-23] MEDS: Rosuvastatin 10 MG TAB 40 MG PO (20:44)
[2022-09-23] MEDS: Potassium Chloride 20 MEQ TABCR 40 MEQ PO (20:45)
[2022-09-23] MEDS: Doxycycline Hyclate 100 MG CAP PO (20:46)
[2022-09-23] MEDS: Potassium Chloride 10 MEQ CAPCR PO (20:46)
[2022-09-23] MEDS: cefTRIAXone 1 GM/50 ML BAG IVPB (20:47)
[2022-09-23] MEDS: Enoxaparin 30 MG/0.3 ML SYR SC (23:32)
[2022-09-24] VITALS (9 sets, daily range): BP systolic 96–169; BP diastolic 61–68; PULSE 60–120; RESP 16–20; TEMP 36.3–36.8; O2SAT 92–99
--- NOTE | 2022-09-24 | DI.CT_ITS ---
Exam(s) CT HEAD WO EXAM: CT HEAD WO CLINICAL HISTORY: Weakness on the left. TECHNIQUE: Imaging Protocol: Axial computed tomography images with coronal and sagittal reformatted images were created and reviewed COMPARISON: CT CT BRAIN NECK CTA from 02/01/2022 FINDINGS: Ventricles and Extra axial spaces: Normal in size and morphology for the patient's age. Hemorrhage: None. Cerebral parenchyma: No change old right frontal infarct. No areas of acute infarct. White matter c hanges of small vessel disease. Minimal atrophy. Midline shift: None. Brainstem/Cerebellum: Normal. Calvarium: Normal. Visualized Paranasal sinuses/Mastoids: Clear. Soft Tissues: Unremarkable. IMPRESSION: Old right frontal infarct. No acute intracranial process. RADIATION DOSE DELIVERED: 669.26mGy.cm Total DLP DATA REPOSITORY: All CT scans at this facility are submitted to the National Radiology Data Registry (NRDR) Dose Index Registry (DIR) with the [employer] (ACR). RADIATION OPTIMIZATION: All CT scans at this facility use at least one of these dose optimization te chniques: automated exposure control; mA and/or kV adjustment per patient size (includes targeted exa ms where dose is matched to clinical indication); or iterative reconstruction.
[2022-09-24] MEDS: Multivitamin TAB 1 TAB PO (09:01)
[2022-09-24] MEDS: tiZANidine 4 MG TABLET PO ×2 (09:01→22:17)
[2022-09-24] MEDS: hydroCHLOROthiazide 25 MG TAB PO (09:01)
[2022-09-24] MEDS: Lisinopril 20 MG TAB PO (09:01)
[2022-09-24] MEDS: Potassium Chloride 10 MEQ CAPCR PO ×2 (09:01→22:15)
[2022-09-24] MEDS: Fluticasone NASAL SPRAY 16 GM BTL NS (09:16)
[2022-09-24] MEDS: Umeclidinium 7 CAP INHALER 1 CAP IH (09:31)
--- NOTE | 2022-09-24 10:32 | NUR.NOTE ---
Nursing Note: @0830, notified charge nurse of pt continuous cough with thick, tenacious, green sputum. notified charge that sputum sample if needed will be at bedside and if she could ask the provider if a sample would like to be tested.
[2022-09-24 11:10] LABS: Abs Immature Grans 0.04 10^3/uL (0.0-0.06); Absolute Basophil Count 0.02 10^3/uL (0.0-0.2); Absolute Lymphocyte Count 1.45 10^3/uL (1.2-3.4); Absolute Monocyte Count 1.38 10^3/uL (0.1-0.8); Basophils % 0.2; HCT 30.6 % (36.0-46.0); HGB 9.8 g/dL (11.2-15.7); Immature Grans % 0.3; Lymphocytes % 12.5; MCH 30.7 pg (27.0-33.0); MCV 96 fL (80-95); MPV 10.5 fL (8.0-11.0); Monocytes % 11.9; Neutrophils % 75.1; Platelet Count 161 10^3/uL (130-400); RBC 3.19 10^6/uL (3.93-5.22); RDW 13.9 % (11.7-14.6); RDW-SD 49.1 fL; WBC 11.57 10^3/uL (4.4-10.8)
[2022-09-24 11:11] LABS: Absolute Neutrophil Count 8.69 10^3/uL (1.2-6.7)
--- NOTE | 2022-09-24 11:24 | INITIAL_ITS ---
- If Service Date Differs Date of service: 09/24/22 Time of Service: 11:24 Care Management Initial Assess REASON FOR HOSPITALIZATION:: Bronchitis, COPD PAST MEDICAL HISTORY/PAST SURGICAL HISTORY:: All Active Problems. Discharge planning issues (Acute). DVT prophylaxis (Acute). Chronic obstructive lung disease (Acute). PFT'S 2009 FEV 1.15=59%. continues to smoke. Constipation (Chronic 11/14/17). Essential hypertension (Acute 03/30/13). Hyperlipidemia (Chronic). Lumbago (Chronic 05/10/13). Peripheral vascular disease (Acute). Jul [place] [facility] [place]. LEFT ILIAC STENT [facility] [place]. Polyp of colon (Acute). tubular adenoma. Shoulder arthralgia (Chronic). Seizures (Acute). Carotid stenosis, left (Acute). 50-69% stenosis 04/2022; complete obstruction right internal carotid. Anxiety about health (Acute). Grief reaction (Chroni c). Spouse 08/13/21 passed. Hand pain, left (Acute). CVA (cerebral vascular accident) (Chronic). Neuro est. between 04/2020-11/2021. Counseling regarding advanced directives and goals of care (Acute). Dilated bile duct (Acute ~02/2022). s/p ERCP [facility], 10mm dilation, no masses. Due repeat MRI in 10/2022. Left rotator cuff tear arthropathy (Chronic). 40 mg Depo-Medrol injection: 04/13/2022. Nail dystrophy (Acute). Left upper quadrant abdominal pain (Acute). Seborrheic dermatitis of scalp (Acute). Productive cough (Acute). History of tobacco abuse (Acute). Medical History. Disorder of ear, left. Diverticulitis of colon. H/O SIGMOID COLECTOMY. Perichondritis. Smoker (10/19/16). Surgical History. Extraction of cataract. B/L 04/2013. Ligation of fallopian tube. Rotator Cuff Repair. RIGHT. S/P partial colectomy. Trigger Finger release. WRIST/THUMB SURGERY. LEFT THUMB. LEFT WRIST. RIGHT THUMB PREVIOUS FUNCTIONAL STATUS/SOCIAL/FAMILY SUPPORTS:: Kathleen lives in [facility], alone. She has a daughter, who lives in [place], and a son. She has been independent at baseline with ADL's, although she has recently been declining. CURRENT FUNCTIONAL STATUS:: Kathleen was lying in bed when CM met with her. Her son and daughter were visiting, and are very supportive. Kathleen stated that she would prefer to return home, but is willing to have referrals sent to some selected rehab facilities. [facility] first choice is [facility] in [place], [place]. CM will send referrals for consideration. CM will continue to follow. ADVANCE DIRECTIVES:: On file. Niranjan, her spouse is listed as agent, who is . Her daughter, Alexia listed as alternate agent. Has patient been provided with info about the portal/API?: Yes Did the patient sign up for the portal?: Yes (active) CODE STATUS:: DNR/DNI INSURANCE COVERAGE / FINANCIAL ISSUES:: MCR/ [employer]/ Financial Assist 100% CURRENT HOME/COMMUNITY SERVICES/EQUIPMENT:: No current services. PRIMARY CARE PHYSICIAN:: Samir Santa POTENTIAL DISCHARGE NEEDS:: Evaluations for further needs, potential short term rehab placement, follow up appointments. PATIENT/FAMILY EDUCATION NEEDS:: Review discharge instructions and limitations, discussion of self care needs including ask me three. ANTICIPATED BARRIERS TO DISCHARGE:: Limited rehab beds in local area. TRANSPORTATION:: To be determined by disposition, likely RCT or facility w/c van. PLAN:: Anticipate Kathleen will return home with new HH services vs SNF for short term rehab. PT is currently recommending SNF. She will transport via RCT vs facility w/c van. She will follow up with her PCP and discharge plan of care. CM will continue to follow.
[2022-09-24 11:31] LABS: Anion Gap 4.6 mmol/L (3-11); BUN 37 mg/dL (7-18); CO2 26.4 mmol/L (21.0-32.0); CREATININE 1.2 mg/dL (0.55-1.02); Calcium 9.1 mg/dL (8.5-10.1); Chloride 106 mmol/L (98-107); Estimated GFR 46.05 (mL/min/1.73m2); Glucose 160 mg/dL (74-106); Magnesium 1.9 mg/dL (1.8-2.4); Potassium 4.1 mmol/L (3.5-5.1); Sodium 137 mmol/L (136-145)
[2022-09-24] MEDS: POTASSIUM CHLORIDE 20 MEQ/100 ML BAG 50 MEQ IVPB (11:43)
--- NOTE | 2022-09-24 13:39 | PT.INIE ---
Date of service: 09/24/22 Time of Service: 12:46 PT Notes Visit Reasons: Bronchitis;COPD Physical Therapy Inpatient Initial Evaluation Date: 09/24/2022 Referring Doctor: Olivia Castro NP PT Orders: PT CONSULT: Eval/treat Precautions: Fall. Standard. Activity as tolerated. Patient Profile/Admitting Diagnosis: Kathleen is a 81-year-old female who presented to the ED on 09/23/2022 due to to weakness, cough, and shortness of breath. Patient is admitted for management of repeated falls, kidney injury male COPD exacerbation, essential hypertension, hyperlipidemia, seizures, and grief reaction. S/P L shoulder steroid injection on 04/13/2022 for L rotator cuff tear, goes to outpatient clinic for shoulder rehab. Head CT impression: 1. ? No acute intracranial findings. 2. ? Diffuse cerebral atrophy. Age-related periventricular white matter changes. 3. ? Old area of ischemia within the right frontoparietal lobe. PMHX: All Active Problems Discharge planning issues (Acute) DVT prophylaxis (Acute) Chronic obstructive lung disease (Acute) PFT'S 2009 FEV 1.15=59% continues to smoke Constipation (Chronic 11/14/17) Essential hypertension (Acute 03/30/13) Hyperlipidemia (Chronic) Lumbago (Chronic 05/10/13) Peripheral vascular disease (Acute) [place] [facility] [place] [facility] [place] Polyp of colon (Acute) tubular adenoma Shoulder arthralgia (Chronic) Seizures (Acute) Carotid stenosis, left (Acute) 50-69% stenosis 04/2022; complete obstruction right internal carotid. Anxiety about health (Acute) Grief reaction (Chronic) Spouse? 08/13/21 passed Hand pain, left (Acute) CVA (cerebral vascular accident) (Chronic) Neuro est. between 04/2020-11/2021 Counseling regarding advanced directives and goals of care (Acute) Dilated bile duct (Acute ~02/2022) s/p ERCP [facility], 10mm dilation, no masses.? Due repeat MRI in 10/2022. Left rotator cuff tear arthropathy (Chronic) 40 mg Depo-Medrol injection: 04/13/2022 Nail dystrophy (Acute) Left upper quadrant abdominal pain (Acute) Seborrheic dermatitis of scalp (Acute) Productive cough (Acute) History of tobacco abuse (Acute) Medical History Disorder of ear, left Diverticulitis of colon H/O SIGMOID COLECTOMY Perichondritis Smoker (10/19/16) Surgical History? Extraction of cataract B/L 04/2013Ligation of fallopian tube Rotator Cuff Repair RIGHTS/P partial colectomy Trigger Finger release WRIST/THUMB SURGERY LEFT THUMB LEFT WRIST RIGHT THUMB Social History/Home Situation: Patient lives alone in a private home. States that she has a son and a daughter who live close by. Independent with all mobility ADLs using hemiwalker. Used to be able to walk up to 30 feet safely. Rides RCT for her grocery shopping and doctor's appointments. Equipment Owned/DME: EnzySurgewalker, SPC, emergency alert device Subjective: Reports pain in the L shoulder from left rotator cuff tear which she has been going to the outpatient PT clinic for. Patient states that she has fallen 3 times since July this year due to worsening balance problem. States that her left leg just goes to sleep and gives out without warning. Indicates that she has been struggling at home with her day to day activities like putting a bra on, cleaning herself, and working in the kitchen because of her L arm and leg weakness. Agreeable to going to SNF for short-term rehab and if she becomes eligible, to stay long-term. Per Nurse Gonzalez, they needed 2 people to assist patient from bed to wheelchair this morning because she was highly unstable. Objective: General Observation: Seated on bedside chair. L UE in abnormal flexion synergy. In NAD. Mental Status: Alert and oriented as to person, place, time, and purpose. Able to pay attention, focus, and respond appropriately. Pain: 5-6/10 in the L shoulder and arm ROM: Right Upper Extremity: Shoulder Flexion WFL. Shoulder abduction WFL. Elbow flexion WFL. Wrist flexion WFL. Functional opening and closing of hand WFL. Left Upper Extremity: Shoulder Flexion allows up to 60 degrees with pain report at EOR. Shoulder abduction allows up to 40 degrees with pain report at EOR. Elbow flexion from flexed position of 30 degrees to 45 degrees. Wrist flexion less than 25% of AROM. Functional opening and closing of hand limited. Right Lower Extremity: Hip flexion WFL. Hip abduction WFL. Knee flexion WFL. Ankle dorsiflexion WFL. Ankle plantarflexion WFL. Left Lower Extremity: Hip flexion allows up to 90 degrees. Hip abduction allows up to 20 degrees. Knee flexion 30 degrees to 90 degrees. Ankle dorsiflexion to neutral only. Ankle plantarflexion about 10 degrees. Strength: Right Upper Extremity: Shoulder flexors 4-/5. Shoulder abductors 4-/5. Elbow flexors 4-/5. Elbow extensors 4-/5. Data Coordinator weak. Left Upper Extremity: Shoulder flexors 3-/5. Shoulder abductors 3-/5. Elbow flexors 3-/5. Elbow extensors 3-/5. Data Coordinator weak. Right Lower Extremity: Hip flexors 4-/5. Hip abductors 4-/5. Knee flexors 4-/5. Knee extensors 4-/5. Ankle dorsiflexors 4-/5. Ankle plantarflexors 4-/5. Left Lower Extremity: Hip flexors 3-/5. Hip abductors 3-/5. Knee flexors 3-/5. Knee extensors 2-/5. Ankle dorsiflexors 2-/5. Ankle plantarflexors 3-/5. Bed Mobility/Transfers: Sit to stand with moderate assist Stand to sit with moderate assist Bedside chair to wheelchair with moderate assist, L knee gave out and patient needed maximal assist to safely be seated on chair for safety Wheelchair to bedside commode with moderate assist, moderate cues provided for safe technique Bedside commode to bedside chair with moderate assist, moderate cues provided for safe technique Gait: 6 steps + 4 steps + 8 steps requiring moderate assist and wheelchair follow by PT. L hemiplegic gait. L UE in abnormal flexion synergy. L LE in abnormal extensor synergy. Increased trunk lean to R. Increased L UE/LE tone with effort. Step height and width asymmetric. Gait highly unstable. Balance: Static Sitting: Poor Dynamic Sitting: Poor Static Standing: Poor Dynamic Standing: Poor Special Tests: Mobility Limitations Standardized Measure [facility] AM-PAC 6 clicks Basic Mobility Inpatient Short Form: Raw Score: 12 CMS Score: 69% deficit NEURO: Spasticity/Hypertonicity in L UE/LE Unable to do 4-stage Balance Test Abnormal flexion sunergy in L UE, extension synergy in L LE Babinski Reflex present in L LE L hemineglect in L UE/LE Trunk lean to R Informed Consent/Education: Patient was instructed in purpose of PT consult and plan of care. Agreeable to proceed with established PT POC to achieve personal goals. Assessment: Patient with history of R CVA presenting with findings below. Risk for falls and rehospitalization are increased due to admitting diagnoses, weakness, abnormal reflexes, abnormal posture, and impaired balance. Patient presents with clinical signs and symptoms consistent with current/admitting diagnoses that have resulted to mobility limitations, gait instability, generalized weakness, and overall ADL decline as demonstrated by the following impairment level findings: 1. Decreased strength to L UE/LE major muscle groups 2. Impaired sitting/standing balance 3. Impaired activity tolerance 4. Limitation of joint range of motion in L UE/LE 5. Shortness of breath 6. Pain in L shoulder from L rotator cuff tear and pre-existing hemiplegia Impairments are contributing to the following functional limitations: 1. Decline in bed mobility skills 2. Decline in transfer skills 3. Difficulty with ambulation without assistive device and physical assistance 4. Increased completion time for mobility ADL performance 5. Increased risk for falls 6. Difficulty with managing steps alone safely Patient is assessed as a 99931 moderate complexity based on the following: History: 81-year-old female with past medical history as indicated above Examination: Demonstrable impairment in strength, balance, and mobility level with underlying impairments and functional limitations as exhibited above as well as deficit score of 69% utilizing the [facility] Mobility Inpatient Short Form Presentation: Evolving Decision Makin moderate complexity Goals: Goals X1 week 1. Supine-Sit independent 2. Sit-Supine independent 3. Sit-Stand independent 4. Stand-Sit independent with hemiwalker 5. Bed-Chair independent with hemiwalker 6. Chair-Bed independent with hemiwalker 7. Independent gait on level surface with use of hemiwalker for at least 50 feet without report of pain nor dyspnea 8. Independent stair negotiation while holding onto R rail rails for at least 3 steps without report of pain nor dyspnea 9. Independent with home exercise program 10. Good static and dynamic standing balance/tolerance Plan of Care/Treatment Plan: 1-2x/day, 7 days/week x 1 week. Plan of care has been reviewed with the INDUSTRIAL [employer]ERIAL INSTALLER providing the service under Physical Therapy direction. Initiate Physical Therapy intervention for pain management as needed, strengthening, bed mobility, transfers, gait, stairs, balance training, and use of assistive device. DISCHARGE RECOMMENDATIONS: [] Home with no services [] [] Home with services [specify] [] Home with outpatient PT [] [X] SNF for continued rehabilitation. Patient will benefit from [facility] for continued skilled physical therapy services in order to progress mobility level, strength, and balance in preparation for a safe discharge to home. [] [facility] [employer] [facility] [] [] SNF versus LTC based on ability to participate and progress [] TREATMENT CODE/TIME: 31135 x 20 minutes, 71297 x 14 minutes beginning at 12:46 PM. Thank you for the opportunity to participate in the care of this patient. Rebecca Regan PT, DPT, CLT [facility] [place], [place]
--- NOTE | 2022-09-24 16:05 | CHAPLAIN ---
Kathleen said she was waiting to speak with the doctors when I visited this morning. I explained my role and offered support.
--- NOTE | 2022-09-24 18:13 | DI.VRAD_ITS ---
PROCEDURE INFORMATION: Exam: CT Head Without Contrast Exam date and time: 09/24/2022 5:35 PM Age: 81 years old Clinical indication: Left extremity weakness TECHNIQUE: Imaging protocol: Computed tomography of the head without contrast. COMPARISON: CT HEAD WO 11/13/2021 7:49 PM FINDINGS: Brain: Periventricular white matter areas of decreased density which are likely secondary to chronic ischemia from microvascular change. Old area of ischemia within the right frontoparietal lobe. No acute intracranial hemorrhage. Possible left prominent perivascular space / Virschow-Mick space on axial images 24-25, series 2. Diffuse cerebral atrophy. Cerebral ventricles: Ventricular prominence in this patient with diffuse cerebral atrophy. Paranasal sinuses: No significant disease of the paranasal sinuses. Mastoid air cells: Normally aerated mastoid air cells. Bones/joints: Unremarkable for patient age. Soft tissues: Unremarkable. Vasculature: Arterial calcifications. IMPRESSION: 1. No acute intracranial findings. 2. Diffuse cerebral atrophy. Age-related periventricular white matter changes. 3. Old area of ischemia within the right frontoparietal lobe. Dictated and Authenticated by: Andi Chávez MD. Ordering:VICKI Baker MD
[2022-09-24] MEDS: predniSONE 20 MG TAB 40 MG PO (18:49)
[2022-09-24] MEDS: Albuterol/Ipratropium 3 ML UPD VIAL UPD (18:49)
--- NOTE | 2022-09-24 19:43 | PGE_ITS ---
Date of Service Date of service: 09/24/22 Time of Service: 12:00 Assessment and Plan Assessment and plan (1) Chronic obstructive lung disease: Status: Acute Assessment and plan: Difficulty breathing with exertion; she has smoked all of her adult life. Nebs, nicotine replacement, oxygen as needed; Prednisone; Tussionex Qualifiers: COPD type: chronic bronchitis Chronic bronchitis type: simple Qualified Code(s): J41.0 - Simple chronic bronchitis (2) Essential hypertension: Status: Chronic Assessment and plan: Stable, continue home meds (3) Hyperlipidemia: Status: Chronic Assessment and plan: Stable, continue home meds Qualifiers: Hyperlipidemia type: mixed hyperlipidemia Qualified Code(s): E78.2 - Mixed hyperlipidemia (4) Seizures: Status: Chronic Assessment and plan: Stable - reports no recent seizures. (5) Grief reaction: Status: Chronic Assessment and plan: Her dog of 10 years on Tuesday, very upset (6) CVA (cerebral vascular accident): Status: Chronic Assessment and plan: Previous; CT of head, no change (7) DVT prophylaxis: Status: Acute Assessment and plan: Enoxaparin (8) Discharge planning issues: Status: Acute Assessment and plan: She would like to go to short stay rehab, care mgrs are working on that Subjective Subjective Patient reports: no new complaints, voiding w/o difficulty and afebrile; denies diarrhea, nausea, vomiting or shortness of breath Interval history since last seen: Pleasant, alert. Family visiting. She states she feels weaker on her left side than usual. Daughter reports Kathleen is usually up and about, walking around independently. Here, she is able to walk with PT but becomes SOB and has to rest. Kathleen reports she started smoking again because her dog on Tuesday. Exam Narrative Exam Narrative: Physical Examination General: alert, awake, cooperative, resting comfortably, no acute distress HEENT: normocephalic, atraumatic; PERRL, EOM intact, conjunctiva normal; no nasal discharge; moist mucous membranes, oral and pharyngeal mucosa normal, tolerating secretions Neck: supple, trachea midline; full ROM Chest: normal to inspection Respiratory: normal respiratory effort, speaking in full sentences, clear to auscultation, no wheezing, rales or rhonchi Cardiac: regular rate, regular rhythm, S1S2 intact, no murmurs rubs or gallops GI: abdomen soft, non-tender, non-distended; no palpable mass or hepatosplenomegaly Skin: no lesions, rashes or trauma appreciated Neuro: AAOx3, normal speech, moving all extremities, 5/5 strength right upper right lower and left lower extremity, 4+ out of 5 strength left upper, cranial nerves II through XII intact normal speech, no ataxia, ambulatory without assistance Extremities:, No palpable deformity; decreased range of motion of left shoulder Psych: Appropriate mood and affect Objective Last Vital Signs Temp 36.8 C 09/24/22 15:32 Pulse 61 09/24/22 15:32 Resp 17 09/24/22 15:32 BP 111/68 09/24/22 15:32 Pulse Ox 98 09/24/22 15:32 Laboratory Results - last 24 hr 09/24/22 09/24/22 09/24/22 11:03 11:03 11:03 WBC 11.57 H RBC 3.19 L Hgb 9.8 L Hct 30.6 L MCV 96 H MCH 30.7 MCHC 32.0 RDW 13.9 Plt Count 161 MPV 10.5 Immature Gran % 0.3 Neutrophils % 75.1 Lymphocytes % 12.5 Monocytes % 11.9 Eosinophils % 0.0 Basophils % 0.2 Nucleated RBC % 0.0 Absolute Neutrophils 8.69 H Absolute Lymphocytes 1.45 Absolute Monocytes 1.38 H Absolute Eosinophils 0.00 Absolute Basophils 0.02 Sodium 137 Potassium 4.1 Chloride 106 Carbon Dioxide 26.4 Anion Gap 4.6 BUN 37 H Creatinine 1.2 H Est GFR (CKD-EPI 2020) 46.05 Glucose 160 H Calcium 9.1 Magnesium 1.9 Time Spent with Patient Time Spent with Patient: 35-49 minutes Time was spent: preparing to see the patient(eg.review tests), obtaining and/or reviewing separately otained hiistory, ordering medications,tests, procedures, referring, communicating with other health primary care coordinator, indepentently interpreting results, counseling the patient and care coordination
[2022-09-24] MEDS: Rosuvastatin 10 MG TAB 40 MG PO (22:16)
[2022-09-24] MEDS: Enoxaparin 30 MG/0.3 ML SYR SC (22:16)
[2022-09-24] MEDS: Doxycycline Hyclate 100 MG CAP PO (22:16)
[2022-09-24] MEDS: Melatonin 3 MG TAB 6 MG PO (22:17)
--- NOTE | 2022-09-25 | DI.RAD_ITS ---
Exam(s) XR HIP LT COMPLETE AP PELVIS EXAM: XR HIP LT COMPLETE AP PELVIS INDICATION: Pain left hip, thigh spasm. TECHNIQUE: 2D digital imaging was performed. Three views. FINDINGS: No fracture or dislocation. Hip joint spaces are maintained. Degenerative changes noted at the SI j oints. Vascular stents and vascular calcifications as well as anastomotic sutures noted. IMPRESSION: No acute abnormality. DATA REPOSITORY: RADIATION DOSE DELIVERED:
[2022-09-25 03:00] VITALS: BP 122/68; PULSE 61; RESP 17; TEMP 36.4; O2SAT 99
[2022-09-25 06:13] VITALS: BP 126/65; PULSE 55; RESP 17; TEMP 36.7; O2SAT 99
[2022-09-25 06:30] LABS: Abs Immature Grans 0.04 10^3/uL (0.0-0.06); Absolute Basophil Count 0.01 10^3/uL (0.0-0.2); Absolute Lymphocyte Count 0.97 10^3/uL (1.2-3.4); Absolute Monocyte Count 0.51 10^3/uL (0.1-0.8); Absolute Neutrophil Count 8.54 10^3/uL (1.2-6.7); Basophils % 0.1; HCT 32.8 % (36.0-46.0); HGB 10.6 g/dL (11.2-15.7); Immature Grans % 0.4; Lymphocytes % 9.6; MCH 31.4 pg (27.0-33.0); MCHC 32.3 % (32.0-36.0); MCV 97 fL (80-95); MPV 10.5 fL (8.0-11.0); Monocytes % 5.1; Neutrophils % 84.8; Platelet Count 181 10^3/uL (130-400); RBC 3.38 10^6/uL (3.93-5.22); RDW 13.9 % (11.7-14.6); RDW-SD 49.4 fL; WBC 10.07 10^3/uL (4.4-10.8)
[2022-09-25 06:49] LABS: Anion Gap 8.8 mmol/L (3-11); BUN 36 mg/dL (7-18); CO2 25.2 mmol/L (21.0-32.0); CREATININE 1.2 mg/dL (0.55-1.02); Calcium 9.4 mg/dL (8.5-10.1); Chloride 108 mmol/L (98-107); Estimated GFR 46.05 (mL/min/1.73m2); Glucose 188 mg/dL (74-106); Magnesium 1.9 mg/dL (1.8-2.4); Sodium 142 mmol/L (136-145)
[2022-09-25] MEDS: Umeclidinium 7 CAP INHALER 1 CAP IH (08:24)
[2022-09-25] MEDS: Normal Saline Flush 10 ML SYR IVP (09:25)
[2022-09-25] MEDS: Fluticasone NASAL SPRAY 16 GM BTL NS (09:26)
[2022-09-25] MEDS: tiZANidine 4 MG TABLET PO ×2 (09:31→19:56)
[2022-09-25] MEDS: Doxycycline Hyclate 100 MG CAP PO ×2 (09:32→19:56)
[2022-09-25] MEDS: predniSONE 20 MG TAB 40 MG PO (09:32)
[2022-09-25] MEDS: Benzonatate 100 MG CAP PO (09:32)
[2022-09-25] MEDS: Potassium Chloride 10 MEQ CAPCR PO ×2 (09:33→19:56)
[2022-09-25] MEDS: hydroCHLOROthiazide 25 MG TAB PO (09:33)
[2022-09-25] MEDS: Lisinopril 20 MG TAB PO (09:34)
[2022-09-25] MEDS: Multivitamin TAB 1 TAB PO (09:34)
[2022-09-25] MEDS: Nicotine 21 MG/24 HR PATCH TD (09:34)
[2022-09-25] MEDS: Nicotine 4 MG GUM BC (09:34)
[2022-09-25] MEDS: Sertraline 100 MG TAB PO (09:35)
--- NOTE | 2022-09-25 11:46 | PTTR_ITS ---
PT Notes Visit Reasons: Bronchitis;COPD Date: 09/25/2022 PRECAUTIONS: Activity as tolerated, fall SUBJECTIVE: Pi in bed when approached for therapy this morning, pt agreeable to participating with therapy. OBJECTIVE:? BED MOBILITY/TRANSFERS? Supine-sit: max A with HOB at 20 degrees Stand-sit: max A ? THERAPEUTIC ACTIVITIES 19686 30mins: Pt engaged with bed mobility training g oing from supine to EOB max A, static sitting on the EOB 5mins with multidirectional weight shifting, sit to stand from EOB to FWW mod A, pt initally stayed upright 30secs before having cynthia BLE shaking requiring pt to take a seated rest break, pt able to stand up again after 5mins rest break standing for 2mins before requiring to sit back down due BLE shaking, rested for 5 minutes and was able to stand for another 3minutes before pt BLE started shaking. Transfer going back in bed mod A with max A for going up in bed for proper positioning and alignment. PLAN: Continue with global strengthening and general conditioning for improved mobility and activity tolerance. TREATMENT CODE/TIME: 30 minutes; 89813 (8:17-8:47am)
--- NOTE | 2022-09-25 14:39 | W.PM.PROGNOT ---
Date of Service Date of service: 09/25/22 Time of Service: 14:39 Assessment and Plan Assessment and plan (1) Chronic obstructive lung disease: Status: Acute Assessment and plan: Difficulty breathing with exertion; she has smoked all of her adult life. Nebs, nicotine replacement, oxygen as needed; Prednisone; Tussionex Qualifiers: COPD type: chronic bronchitis Chronic bronchitis type: simple Qualified Code(s): J41.0 - Simple chronic bronchitis (2) Essential hypertension: Status: Chronic Assessment and plan: Stable, continue home meds (3) Hyperlipidemia: Status: Chronic Assessment and plan: Stable, continue home meds Qualifiers: Hyperlipidemia type: mixed hyperlipidemia Qualified Code(s): E78.2 - Mixed hyperlipidemia (4) Seizures: Status: Chronic Assessment and plan: Stable - reports no recent seizures. (5) Grief reaction: Status: Chronic Assessment and plan: Her dog of 10 years on Tuesday, very upset (6) CVA (cerebral vascular accident): Status: Chronic Assessment and plan: Previous; CT of head, no change (7) DVT prophylaxis: Status: Acute Assessment and plan: Enoxaparin (8) Discharge planning issues: Status: Acute Assessment and plan: She would like to go to short stay rehab, care mgrs are working on that Subjective Subjective Patient reports: no new complaints, feels better, tolerating a regular diet, bowel movement and afebrile; denies diarrhea, nausea or vomiting Exam Narrative Exam Narrative: Physical Examination General: alert, awake, cooperative, resting comfortably, no acute distress HEENT: normocephalic, atraumatic; PERRL, EOM intact, conjunctiva normal; no nasal discharge; moist mucous membranes, oral and pharyngeal mucosa normal, tolerating secretions Neck: supple, trachea midline; full ROM Chest: normal to inspection Respiratory: normal respiratory effort, speaking in full sentences, clear to auscultation, no wheezing, rales or rhonchi Cardiac: regular rate, regular rhythm, S1S2 intact, no murmurs rubs or gallops GI: abdomen soft, non-tender, non-distended; no palpable mass or hepatosplenomegaly Skin: no lesions, rashes or trauma appreciated Neuro: AAOx3, normal speech, moving all extremities, 5/5 strength right upper right lower and left lower extremity, 4+ out of 5 strength left upper, cranial nerves II through XII intact normal speech, no ataxia, ambulatory without assistance Extremities:, No palpable deformity; decreased range of motion of left shoulder Psych: Appropriate mood and affect Objective Last Vital Signs Temp 36.7 C 09/25/22 06:13 Pulse 55 L 09/25/22 06:13 Resp 17 09/25/22 06:13 BP 126/65 09/25/22 06:13 Pulse Ox 99 09/25/22 06:13 Laboratory Results - last 24 hr 09/25/22 09/25/22 06:05 06:05 WBC 10.07 RBC 3.38 L Hgb 10.6 L Hct 32.8 L MCV 97 H MCH 31.4 MCHC 32.3 RDW 13.9 Plt Count 181 MPV 10.5 Immature Gran % 0.4 Neutrophils % 84.8 Lymphocytes % 9.6 Monocytes % 5.1 Eosinophils % 0.0 Basophils % 0.1 Nucleated RBC % 0.0 Absolute Neutrophils 8.54 H Absolute Lymphocytes 0.97 L Absolute Monocytes 0.51 Absolute Eosinophils 0.00 Absolute Basophils 0.01 Sodium 142 Potassium 4.0 Chloride 108 H Carbon Dioxide 25.2 Anion Gap 8.8 BUN 36 H Creatinine 1.2 H Est GFR (CKD-EPI 2020) 46.05 Glucose 188 H Calcium 9.4 Magnesium 1.9 Reviewed Pertinent PMH: Yes Time Spent with Patient Time Spent with Patient: 25-34 minutes Time was spent: preparing to see the patient(eg.review tests), ordering medications,tests, procedures, referring, communicating with other health rn progressive care unit, indepentently interpreting results, counseling the patient and care coordination
[2022-09-25 15:45] VITALS: BP 107/65; PULSE 60; RESP 18; TEMP 36.6; O2SAT 94
--- NOTE | 2022-09-25 17:06 | DI.VRAD_ITS ---
PROCEDURE INFORMATION: Exam: XR Left Hip Exam date and time: 09/25/2022 4:46 PM Age: 81 years old Clinical indication: Hip pain; Patient HX: Pain left hip, thigh spasm TECHNIQUE: Imaging protocol: Radiologic exam of the left hip. Views: 2 or 3 views hip with pelvis when performed. COMPARISON: CT ABDOMEN PELVIS W 02/05/2022 9:37 AM FINDINGS: Bones/joints: Lumbosacral spine moderate degenerative disease. Bony pelvis is intact. No fractures. No focal bone lesions. Sacroiliac joints are unremarkable. Left hip is unremarkable on two views. No traumatic disruption. No joint space narrowing. Femoral head is normal in configuration. Soft tissues: Soft tissues of the left hip region are unremarkable. Vasculature: Aortoiliac moderate atherosclerotic calcium. Moderate vascular calcium of the femoral artery. IMPRESSION: 1. Degenerative lumbosacral spine changes. 2. Unremarkable appearance of left hip. 3. Aortoiliac and left femoral atherosclerotic calcium. Dictated and Authenticated by: Michele Molina MD. Ordering:VICKI Baker MD
[2022-09-25] MEDS: Rosuvastatin 10 MG TAB 40 MG PO (19:56)
[2022-09-25 20:01] VITALS: BP 138/56; PULSE 65; RESP 18; TEMP 36.6; O2SAT 98
[2022-09-25] MEDS: Enoxaparin 30 MG/0.3 ML SYR SC (21:26)
[2022-09-25] MEDS: Melatonin 3 MG TAB 6 MG PO (21:26)
[2022-09-25 23:20] VITALS: BP 131/57; PULSE 57; RESP 16; TEMP 36.5; O2SAT 100
[2022-09-26] VITALS (7 sets, daily range): BP systolic 129–152; BP diastolic 55–70; PULSE 51–65; RESP 16–20; TEMP 36.2–36.9; O2SAT 93–100
[2022-09-26 06:54] LABS: Abs Immature Grans 0.06 10^3/uL (0.0-0.06); Absolute Basophil Count 0.01 10^3/uL (0.0-0.2); Absolute Eosinophil Count 0.01 10^3/uL (0.0-0.7); Absolute Lymphocyte Count 2.44 10^3/uL (1.2-3.4); Absolute Monocyte Count 1.26 10^3/uL (0.1-0.8); Basophils % 0.1; Eosinophils % 0.1; HCT 34.3 % (36.0-46.0); Immature Grans % 0.5; Lymphocytes % 19.3; MCH 30.8 pg (27.0-33.0); MCHC 32.1 % (32.0-36.0); MCV 96 fL (80-95); MPV 10.7 fL (8.0-11.0); Platelet Count 192 10^3/uL (130-400); RBC 3.57 10^6/uL (3.93-5.22); RDW 13.6 % (11.7-14.6); RDW-SD 48.6 fL; WBC 12.63 10^3/uL (4.4-10.8)
[2022-09-26 07:10] LABS: Absolute Neutrophil Count 8.84 10^3/uL (1.2-6.7)
[2022-09-26 07:13] LABS: Anion Gap 7.5 mmol/L (3-11); BUN 38 mg/dL (7-18); CO2 28.5 mmol/L (21.0-32.0); CREATININE 1.2 mg/dL (0.55-1.02); Calcium 9.6 mg/dL (8.5-10.1); Chloride 108 mmol/L (98-107); Estimated GFR 46.05 (mL/min/1.73m2); Glucose 136 mg/dL (74-106); Magnesium 1.9 mg/dL (1.8-2.4); Potassium 3.6 mmol/L (3.5-5.1); Sodium 144 mmol/L (136-145)
[2022-09-26] MEDS: Umeclidinium 7 CAP INHALER 1 CAP IH (09:34)
[2022-09-26] MEDS: Nicotine 21 MG/24 HR PATCH TD (09:55)
[2022-09-26] MEDS: Normal Saline Flush 10 ML SYR IVP ×2 (09:57→21:16)
[2022-09-26] MEDS: Sertraline 100 MG TAB PO (09:58)
[2022-09-26] MEDS: predniSONE 20 MG TAB 40 MG PO (09:58)
[2022-09-26] MEDS: Doxycycline Hyclate 100 MG CAP PO ×2 (09:59→21:16)
[2022-09-26] MEDS: Multivitamin TAB 1 TAB PO (09:59)
[2022-09-26] MEDS: Lisinopril 20 MG TAB PO (09:59)
[2022-09-26] MEDS: hydroCHLOROthiazide 25 MG TAB PO (09:59)
[2022-09-26] MEDS: tiZANidine 4 MG TABLET PO ×2 (10:00→21:17)
[2022-09-26] MEDS: Benzonatate 100 MG CAP PO (10:00)
[2022-09-26] MEDS: Potassium Chloride 10 MEQ CAPCR PO ×2 (10:00→21:16)
[2022-09-26] MEDS: Fluticasone NASAL SPRAY 16 GM BTL NS (10:01)
[2022-09-26] MEDS: Diclofenac 1% Gel 100 GM TUBE TP ×3 (11:14→21:15)
--- NOTE | 2022-09-26 12:42 | PT.INTREAT ---
PT Notes Visit Reasons: Bronchitis;COPD Date: 09/26/2022 PRECAUTIONS: Activity as tolerated, fall SUBJECTIVE: Pi in recliner when approached for therapy this morning, pt agreeable to participating with therapy. OBJECTIVE:? BED MOBILITY/TRANSFERS? Sit to stand SBA Stand to sit SBA EOB to supine min A Side to side movement in bed min A Upward movement in bed min A? GAIT: Assistive Device: FWW Weight bearing: Full Assistance: SBA Distance: 300' Deviation: Slow pacing, short step height and step length, O2 support NC at 2L using portable tank. ? PLAN: Continue with global strengthening and general conditioning for improved mobility and activity tolerance. TREATMENT CODE/TIME: 30 minutes; [id number] (9:10-9:40am)
--- NOTE | 2022-09-26 16:15 | W.PM.PROGNOT ---
Date of Service Date of service: 09/26/22 Time of Service: 16:15 Assessment and Plan Assessment and plan (1) Hypokalemia: Status: Inactive Assessment and plan: 3.6 - improved, monitor (2) Chronic obstructive lung disease: Status: Chronic Assessment and plan: Difficulty breathing with exertion; she has smoked all of her adult life. Nebs, nicotine replacement, oxygen as needed; Prednisone; Tussionex Qualifiers: COPD type: chronic bronchitis Chronic bronchitis type: simple Qualified Code(s): J41.0 - Simple chronic bronchitis (3) Essential hypertension: Status: Chronic Assessment and plan: Stable, continue home meds (4) Hyperlipidemia: Assessment and plan: Stable, continue home meds Qualifiers: Hyperlipidemia type: mixed hyperlipidemia Qualified Code(s): E78.2 - Mixed hyperlipidemia (5) Seizures: Assessment and plan: Stable - reports no recent seizures. (6) Grief reaction: Status: Chronic Assessment and plan: Her dog of 10 years on Tuesday, very upset (7) CVA (cerebral vascular accident): Status: Chronic Assessment and plan: Previous; CT of head, no change (8) DVT prophylaxis: Status: Deleted Assessment and plan: Enoxaparin (9) Discharge planning issues: Status: Deleted Assessment and plan: She would like to go to short stay rehab, care mgrs are working on that Subjective Subjective Patient reports: no new complaints Exam Narrative Exam Narrative: Physical Examination General: alert, awake, cooperative, resting comfortably, no acute distress HEENT: normocephalic, atraumatic; PERRL, EOM intact, conjunctiva normal; no nasal discharge; moist mucous membranes, oral and pharyngeal mucosa normal, tolerating secretions Neck: supple, trachea midline; full ROM Chest: normal to inspection Respiratory: normal respiratory effort, speaking in full sentences, clear to auscultation, no wheezing, rales or rhonchi Cardiac: regular rate, regular rhythm, S1S2 intact, no murmurs rubs or gallops GI: abdomen soft, non-tender, non-distended; no palpable mass or hepatosplenomegaly Skin: no lesions, rashes or trauma appreciated Neuro: AAOx3, normal speech, moving all extremities, 5/5 strength right upper right lower and left lower extremity, 4+ out of 5 strength left upper, cranial nerves II through XII intact normal speech, no ataxia, ambulatory without assistance Extremities:, No palpable deformity; decreased range of motion of left shoulder Psych: Appropriate mood and affect Psych Mental Status: mental status grossly normal Speech and Movement: speech and movement normal Mood: congruent mood Affect: normal affect Objective Last Vital Signs Temp 36.5 C 09/26/22 14:21 Pulse 53 L 09/26/22 14:21 Resp 19 09/26/22 14:21 BP 129/70 09/26/22 14:21 Pulse Ox 95 09/26/22 14:21 Laboratory Results - last 24 hr 09/26/22 09/26/22 06:26 06:26 WBC 12.63 H RBC 3.57 L Hgb 11.0 L Hct 34.3 L MCV 96 H MCH 30.8 MCHC 32.1 RDW 13.6 Plt Count 192 MPV 10.7 Immature Gran % 0.5 Neutrophils % 70.0 Lymphocytes % 19.3 Monocytes % 10.0 Eosinophils % 0.1 Basophils % 0.1 Nucleated RBC % 0.0 Absolute Neutrophils 8.84 H Absolute Lymphocytes 2.44 Absolute Monocytes 1.26 H Absolute Eosinophils 0.01 Absolute Basophils 0.01 Sodium 144 Potassium 3.6 Chloride 108 H Carbon Dioxide 28.5 Anion Gap 7.5 BUN 38 H Creatinine 1.2 H Est GFR (CKD-EPI 2020) 46.05 Glucose 136 H Calcium 9.6 Magnesium 1.9 Time Spent with Patient Time Spent with Patient: 25-34 minutes Time was spent: preparing to see the patient(eg.review tests), ordering medications,tests, procedures, referring, communicating with other health family member caretaker, indepentently interpreting results, counseling the patient and care coordination
[2022-09-26] MEDS: Enoxaparin 30 MG/0.3 ML SYR SC (21:15)
[2022-09-26] MEDS: Rosuvastatin 10 MG TAB 40 MG PO (21:16)
[2022-09-26] MEDS: Melatonin 3 MG TAB 6 MG PO (21:17)
[2022-09-27 03:20] VITALS: BP 151/73; PULSE 54; RESP 14; TEMP 36.1; O2SAT 95
[2022-09-27 07:23] LABS: Abs Immature Grans 0.16 10^3/uL (0.0-0.06); Absolute Basophil Count 0.04 10^3/uL (0.0-0.2); Absolute Eosinophil Count 0.02 10^3/uL (0.0-0.7); Absolute Lymphocyte Count 2.75 10^3/uL (1.2-3.4); Absolute Monocyte Count 1.16 10^3/uL (0.1-0.8); Basophils % 0.3; Eosinophils % 0.2; HCT 35.7 % (36.0-46.0); HGB 11.8 g/dL (11.2-15.7); Immature Grans % 1.3; Lymphocytes % 22.1; MCH 31.4 pg (27.0-33.0); MCHC 33.1 % (32.0-36.0); MCV 95 fL (80-95); MPV 10.2 fL (8.0-11.0); Monocytes % 9.3; Neutrophils % 66.8; Platelet Count 228 10^3/uL (130-400); RBC 3.76 10^6/uL (3.93-5.22); RDW 13.6 % (11.7-14.6); RDW-SD 47.8 fL; WBC 12.46 10^3/uL (4.4-10.8)
[2022-09-27 07:28] LABS: Absolute Neutrophil Count 8.32 10^3/uL (1.2-6.7)
[2022-09-27 07:38] LABS: Anion Gap 6.3 mmol/L (3-11); BUN 34 mg/dL (7-18); CO2 30.7 mmol/L (21.0-32.0); CREATININE 1.2 mg/dL (0.55-1.02); Calcium 9.5 mg/dL (8.5-10.1); Chloride 103 mmol/L (98-107); Estimated GFR 46.05 (mL/min/1.73m2); Glucose 95 mg/dL (74-106); Magnesium 1.8 mg/dL (1.8-2.4); Potassium 3.1 mmol/L (3.5-5.1); Sodium 140 mmol/L (136-145)
[2022-09-27 08:16] VITALS: BP 161/68; PULSE 54; RESP 19; TEMP 36.3; O2SAT 95
[2022-09-27] MEDS: Umeclidinium 7 CAP INHALER 1 CAP IH (08:22)
[2022-09-27] MEDS: predniSONE 20 MG TAB 40 MG PO (08:32)
[2022-09-27] MEDS: Nicotine 21 MG/24 HR PATCH TD (08:32)
[2022-09-27] MEDS: Diclofenac 1% Gel 100 GM TUBE TP ×2 (08:32→11:28)
[2022-09-27] MEDS: Sertraline 100 MG TAB PO (08:33)
[2022-09-27] MEDS: hydroCHLOROthiazide 25 MG TAB PO (08:33)
[2022-09-27] MEDS: Multivitamin TAB 1 TAB PO (08:33)
[2022-09-27] MEDS: Lisinopril 20 MG TAB PO (08:33)
[2022-09-27] MEDS: Doxycycline Hyclate 100 MG CAP PO (08:34)
[2022-09-27] MEDS: tiZANidine 4 MG TABLET PO (08:34)
[2022-09-27] MEDS: Fluticasone NASAL SPRAY 16 GM BTL NS (08:34)
[2022-09-27] MEDS: Potassium Chloride 10 MEQ CAPCR PO (08:35)
[2022-09-27] MEDS: Benzonatate 100 MG CAP PO (09:17)
[2022-09-27] MEDS: Potassium Chloride 20 MEQ TABCR 40 MEQ PO (10:16)
[2022-09-27 10:40] VITALS: PULSE 71; PULSE 72; PULSE 88; RESP 16; RESP 18; O2SAT 91; O2SAT 93; O2SAT 95
[2022-09-27 11:09] VITALS: BP 107/51; PULSE 59; RESP 19; TEMP 37; O2SAT 96
--- NOTE | 2022-09-27 12:42 | DSE_ITS ---
Date of service: 09/27/22 Time of Service: 12:42 DS: Diagnosis Discharge Diagnosis (1) Chronic obstructive lung disease: Status: Chronic (2) Essential hypertension: Status: Chronic (3) Hyperlipidemia: Status: Chronic (4) Seizures: Status: Chronic (5) Grief reaction: Status: Chronic Asessment and Plan: Her dog of 10 years last week. She lives alone; however son lives in the same building. (6) CVA (cerebral vascular accident): Status: Chronic Discharge Plan Disposition Patient Disposition: Home W/Home Health Services Condition: Improving Discharge Details Reason For Visit: Bronchitis;COPD Admit Date/Time: 09/26/22 12:44 Admit Provider: Dheeraj Vasquez Attending Provider: Dheeraj Vasquez Primary Care Provider: Samir Casillas Hospital Course Hospital Course: This is a 81-year-old female patient with past medical history of COPD, essential hypertension, hyperlipidemia, peripheral vascular disease, and CVA with left-sided deficit presented to the [facility] ED on 09/23/2022 with weakness, cough, and shortness of breath. She was treated in the ED with nebulizers, diagnostic tests were performed.? An ambulatory trial was assessed and she was unable to ambulate and was a two-person assist - this is worse than usual, she lives independently with son upstairs.? Her dog last week and she is quite emotional. She had no leukocytosis, no fevers, and her chest xray had no acute findings. She was given 1 L of normal saline in the ED.? She was started on oral doxycycline and IV Ceftriaxone for suspected bronchitis versus pneumonia.? She was admitted to the medical floor for further treatment and [facility]. She was seen by physical therapy and they recommended she go to short term rehab for strengthening.? Over the weekend she improved greatly, did not require oxygen and was able to walk increased distances every day.? Her potassium has been low during her hospitalization and her dose has been increased at home, with repeat electrolytes ordered for October 01, results to PCP. ?She should follow up with pulmonology related to her COPD, a referral has been sent. She was encouraged to stop smoking as well as offered smoking cessation information. She was continued on doxycycline for 4 more days, a total of 7 days, prednisone for 5 days, an albuterol inhaler and we will have HH PT visit.? She was able to walk without needing oxygen, is afebrile and vital signs are stable.? She declined SNF and request to go home.? Her son is in agreement with this plan and is available to her.? PT also agreed PT is recommended.?? She was discharged to home with PT services, stable. Discussed with Dr Renee Home Meds and New Rx's Prescriptions: New prednisone 20 mg Tablet 40 mg PO DAILY Qty: 10 0RF potassium chloride 20 mEq Tablet,Er Particles/Crystals 40 meq PO DAILY Qty: 30 0RF doxycycline hyclate 100 mg capsule 100 mg PO BID Qty: 8 0RF albuterol sulfate 90 mcg/actuation HFA aerosol inhaler 2 puff inhalation 6XD PRNQty: 8.5 0RF Continued lisinopril-hydrochlorothiazide 20-25 mg tablet 1 tab PO DAILY Qty: 90 1RF Centrum Silver Women 8 mg iron-400 mcg-300 mcg tablet 1 tab PO DAILY Incruse Ellipta 62.5 mcg/actuation blister with device 1 inh inhalation DAILY Qty: 30 12RF ketoconazole 2 % shampoo 1 applic topical .Twice a week PRN (Reason: seborrheic derm) Qty: 120 0RF Rx Instructions: Apply to wet scalp twice a week, leave on for 3-5 minutes, then rinse well. use for 2-4 weeks rosuvastatin 40 mg tablet 40 mg PO DAILY Qty: 90 3RF tizanidine 4 mg tablet 4 mg PO BID Patient Comments: TAKE ONE TABLET BY MOUTH TWICE A DAY fluticasone propionate [Flonase Allergy Relief] 50 mcg/actuation spray,suspension 1 spray intranasal DAILY Rx Instructions: administer into each nostril aspirin 81 mg tablet,delayed release (DR/EC) 81 mg PO DAILY Patient Comments: TAKE ONE TABLET BY MOUTH EVERY DAY mometasone 0.1 % cream 1 applic TOPICAL BID Patient Comments: APPLY TO BOTH EARS DIRECTED TWO TIMES A DAY FOR 14 DAYS Rx Instructions: Apply to both ears twice daily as directed neomycin-polymyxin B-dexameth 3.5 mg/g-10,000 unit/g-0.1 % ointment 1 applic ophthalmic (eye) TID Patient Comments: Apply 1 a small amount on eyelid three times a day Rx Instructions: Apply a small amount on eyelid TID sertraline 100 mg tablet 100 mg PO DAILY benzonatate 100 mg capsule 100 mg PO DAILY Patient Comments: Patient takes 100 mg daily Rx Instructions: Take 1-2 capsules by mouth three times a day as needed for cough nicotine (polacrilex) 4 mg Gum 4 mg BUCCAL Q2H nicotine 21 mg/24 hr Patch 24 Hour 1 patch TRANSDERMAL DAILY Discontinued potassium chloride 10 mEq capsule, extended release 10 meq PO BID Discharge Instructions Instructions: Doxycycline (By mouth), Albuterol (By mouth), Prednisone (By mouth), Potassium Chloride (By mouth), How to Stop Smoking (DC), How to Use an Incentive Spirometer (DC), Hypokalemia (DC), COPD (Chronic Obstructive Pulmonary Disease) (DC) Additional Instructions: Use albuterol inhaler for wheezing and shortness of breath. Continue doxycycline antibiotic until completed; 4 more days. Your potassium is low, your daily dose of potassium has been increased. Have your electrolytes checked Tuesday at the hospital lab. The order is in. Continue using the Acapella and incentive spirometer devices as you have been taught. Stop smoking. Stand Alone Forms: Nursing Discharge Form Referrals: Samir Casillas NP [Primary Care Provider] - 10/06/22 11:20 am () Lisa Mixon MD [ [facility] STAFF PHYSICIAN] - 11/19/22 1:00 pm (COPD; bronchitis; required oxygen while hospitalized) Activity:: Activity as Tolerated Equipment/Supplies:: Walker Diet:: DASH Discharge Orders Discharge Orders: Discharge Order (Routine); Ordered 09/27/22 Ordered By: Olivia Castro Other Ambulatory Orders: Basic Metabolic Panel (Routine) Timeframe: [id number] Location: None Selected Ordered By: Olivia Castro DS: Summary Time Spent with Patient providing and/or coordinating discharge services: Greater than 30 minutes Status at Discharge Functional status at discharge: uses cane/walker Overall status at discharge: patient is back to baseline Mental Status: mental status grossly normal Speech and Movement: speech and movement normal Mood: congruent mood Affect: normal affect Exam Narrative Exam Narrative: Physical Examination General: alert, awake, cooperative, resting comfortably, no acute distress HEENT: normocephalic, atraumatic; PERRL, EOM intact, conjunctiva normal; no nasal discharge; moist mucous membranes, oral and pharyngeal mucosa normal, t olerating secretions Neck: supple, trachea midline; full ROM Chest: normal to inspection Respiratory: normal respiratory effort, speaking in full sentences, clear to auscultation, no wheezing, rales or rhonchi Cardiac: regular rate, regular rhythm, S1S2 intact, no murmurs rubs or gallops GI: abdomen soft, non-tender, non-distended; no palpable mass or hepatosplenomegaly Skin: no lesions, rashes or trauma appreciated Neuro: AAOx3, normal speech, moving all extremities, 5/5 strength right upper right lower and left lower extremity, 4+ out of 5 strength left upper, cranial nerves II through XII intact normal speech, no ataxia, ambulatory without assistance Extremities:, No palpable deformity; decreased range of motion of left shoulder Psych: Appropriate mood and affect Psych Mental Status: mental status grossly normal Speech and Movement: speech and movement normal Mood: congruent mood Affect: normal affect DS: Data Vitals/I&O Vitals and I&O: Vital Signs Temperature 37 C 09/27/22 11:09 Temperature Source Tympanic 09/27/22 11:09 Pulse 59 L 09/27/22 11:09 Pulse Rhythm Regular 09/27/22 08:00 Pulse 88 09/23/22 14:15 Respiratory Rate 19 09/27/22 11:09 Respiratory Effort Normal, Non-Labored 09/27/22 08:00 Respiratory Depth Normal 09/27/22 08:00 Respiratory Pattern Normal 09/27/22 08:00 Blood Pressure 107/51 L 09/27/22 11:09 Blood Pressure Mean 60 09/23/22 17:32 Pulse Oximetry 96 09/27/22 11:09 Oxygen Delivery Method Room Air 09/27/22 11:09 Oxygen Flow Rate 0 09/27/22 11:09 Pain Level 0 09/27/22 11:16 Comment BP called over radio 09/27/22 11:09 Intake & Output 09/26/22 09/27/22 09/27/22 23:59 11:59 23:59 Intake Total 1220 / 1340 Output Total 250 / 250 300 / 300 Balance 970 / 1090 -300 / -300 Weight 54.1 kg Intake: Oral 1220 / 1340 Output: Urine 250 / 250 300 / 300 Other: Urine Color Yellow Pale Yellow Urine Appearance Clear Clear Urine Odor None Normal Voiding Methods Toilet Toilet Data Completed and Pending Labs on day of discharge: Labs from last 24 hours 09/27/22 09/27/22 06:15 06:15 WBC 12.46 H RBC 3.76 L Hgb 11.8 Hct 35.7 L MCV 95 MCH 31.4 MCHC 33.1 RDW 13.6 Plt Count 228 MPV 10.2 Immature Gran % 1.3 Neutrophils % 66.8 Lymphocytes % 22.1 Monocytes % 9.3 Eosinophils % 0.2 Basophils % 0.3 Nucleated RBC % 0.0 Absolute Neutrophils 8.32 H Absolute Lymphocytes 2.75 Absolute Monocytes 1.16 H Absolute Eosinophils 0.02 Absolute Basophils 0.04 Sodium 140 Potassium 3.1 L Chloride 103 Carbon Dioxide 30.7 Anion Gap 6.3 BUN 34 H Creatinine 1.2 H Est GFR (CKD-EPI 2020) 46.05 Glucose 95 Calcium 9.5 Magnesium 1.8 Preliminary micro results at discharge 09/24/22 22:45 Sputum Culture - Preliminary Sputum Normal Pati PFSH All Active Problems Discharge planning issues (Acute) DVT prophylaxis (Acute) Chronic obstructive lung disease (Chronic) PFT'S 2009 FEV 1.15=59% continues to smoke Constipation (Chronic 11/14/17) Essential hypertension (Chronic 03/30/13) Hyperlipidemia (Chronic) Lumbago (Chronic 05/10/13) Peripheral vascular disease (Acute) Jul 2014 [facility] aorto bifem bypass LEFT ILIAC STENT [facility] 03/2010 Polyp of colon (Acute) tubular adenoma Shoulder arthralgia (Chronic) Seizures (Chronic) Carotid stenosis, left (Acute) 50-69% stenosis 04/2022; complete obstruction right internal carotid. Anxiety about health (Acute) Grief reaction (Chronic) Spouse 08/13/21 passed Hand pain, left (Acute) CVA (cerebral vascular accident) (Chronic) Neuro est. between 04/2020-11/2021 Counseling regarding advanced directives and goals of care (Acute) Dilated bile duct (Acute ~02/2022) s/p ERCP [facility], 10mm dilation, no masses. Due repeat MRI in 10/2022. Left rotator cuff tear arthropathy (Chronic) 40 mg Depo-Medrol injection: 04/13/2022 Nail dystrophy (Acute) Left upper quadrant abdominal pain (Acute) Seborrheic dermatitis of scalp (Acute) Productive cough (Acute) History of tobacco abuse (Acute) Medical History Disorder of ear, left Diverticulitis of colon H/O SIGMOID COLECTOMY Perichondritis Smoker (10/19/16) Surgical History Extraction of cataract B/L 04/2013 Ligation of fallopian tube Rotator Cuff Repair RIGHT S/P partial colectomy Trigger Finger release WRIST/THUMB SURGERY LEFT THUMB LEFT WRIST RIGHT THUMB Family History Mother Diabetes Essential hypertension Stroke Father , 55 Heart disease Stroke Brother , 71 Complications from surgery No problems noted. Son No problems noted. Son No problems noted. Daughter No problems noted. Daughter No problems noted. Social History Smoking/Tobacco Use Status: Current every day Tobacco Type: cigarettes Smoking packs per day: 0.5 Smoking cigarettes per day: 10.0 Years smoked: 63 Smoking pack-years: 31.50 Tobacco: How many years used: 63 Quit status: considering quitting Second Hand Exposure: Yes Smoking risk assessment performed?: Yes Alcohol Intake: never Drug use: Rarely Counseling given: No Counseling provided: none Caregiver/Support person: No Household members: none Housing: house Number of Children: 4 Communication Needs: Hard of Hearing Do you need help understanding health information?: Rarely Pets and animals: Yes Pets and animals: dog(s) Sexually active: No Do you think of yourself as: straight/heterosexual Current gender identity: female What is your relationship status?: How often do you talk on the phone with friends or family?: three or more times per week Do you belong to any clubs or organized social groups?: no Panel score (0-1 are the most socially isolated patients): 1 What type of physical activity do you participate in: none Darlene/Taoism: No preference Special darlene needs: No Seatbelt use: always Helmet use: No Drive intox or ride w/intox tour driver: No Do you feel safe at home: Yes Do you feel safe in your relationship?: Yes Time Spent with Patient Time Spent with Patient: 45-69 minutes Time was spent: preparing to see the patient(eg.review tests), ordering medications,tests, procedures, referring, communicating with other health outdoor emergency care technician, indepentently interpreting results, counseling the patient and care coordination
--- NOTE | 2022-09-27 13:13 | PDOC.HHF2F ---
Home Health Referral Home Health Orders Clinical synopsis of why skilled professionals are needed: This is a 81-year-old female patient with past medical history of COPD, essential hypertension, hyperlipidemia, peripheral vascular disease, and CVA with left-sided deficit presented to the [facility] ED on 09/23/2022 with weakness, cough, and shortness of breath. She was treated in the ED with nebulizers, diagnostic tests were performed.? An ambulatory trial was assessed and she was unable to ambulate and was a two-person assist - this is worse than usual, she lives independently with son upstairs.? Creatinine was elevated from baseline at 1.4, and her BUN is increased from 20-40.? She was given 1 L of normal saline in the ED.? The ED started her on oral doxycycline and IV Ceftriaxone for suspected bronchitis versus pneumonia.? She was admitted to the medical floor for further treatment and strengthening. She was seen by physical therapy and they recommended she go to short term rehab for strengthening.? Over the weekend she improved greatly, did not require oxygen and was able to walk increase distance every day. She is receiving oral antibiotics.? Her potassium has been low during her hospitalization and her dose has been increased at home, with repeat electrolytes ordered for October 01, results to PCP. ?She should follow up with pulmonology related to her COPD, a referral has been sent. She was encouraged to stop smoking as well as offered smoking cessation information. She was continued on doxycycline for 4 more days, a total of 7 days, prednisone for 5 days, an albuterol inhaler and we will have HH PT visit.? She was able to walk without needing oxygen, is afebrile and vital signs are stable.? She declined SNF and request to go home.? Her son is in agreement with this plan and is available to her.? PT also agreed HH PT is recommended.?? She was discharged to home with PT services, stable. Medical diagnosis necessitation home health referral: Ambulatroy dysfunction; COPD: Weakness Physical Therapist: Check all that apply Increase strength & endurance for safe mobility at home: Ordered To design/establish home maintenance program: Ordered Fall reduction therapy program for patient with history of frequent falls: Ordered Home safety evaluation and teaching/gait training including stair management (if applicable): Ordered Better Breathing Program: Ordered Numerical Control Drill Press Operator: Assist with community resources: Ordered Assist with prison care planning: Ordered Home Bound Status Requires the aid of supportive device (check all that apply): Walker Assistance of another person (Describe assistance and medical necessity): Requires one person assistance to ambulate on uneven surfaces Patient has a condition such that leaving home is medically contraindicated (Describe): she has COPD and does not tolerate distance Describe why leaving home would require a considerable and taxing effort: Requires frequent rest periods Encounter Date and Reason: I certify that a FTF encounter for this patient was performed on September 27, 2022 and that such encounter was related to the primary reason the patient requires home health services. The encounter was conducted in the following manner: By me as the certifying physician, MANAGER WATER WASTEWATER, PA or By an inpatient physician, MANAGER WATER WASTEWATER or PA during an inpatient stay who communicated findings to me, Certification And Authentication I certify that I composed the above information based on my clinical judgment relating to this patient's medical condition and, if applicable, clinical findings communicated to me by the NPP or inpatient physician who performed the FTF encounter. Name of Provider that will be monitoring home health services: Samir Garcia
--- NOTE | 2022-09-27 15:26 | PT.INTREAT ---
Date of service: 09/27/22 Time of Service: 10:15 PT Notes Visit Reasons: Bronchitis;COPD Inpatient Physical Therapy Treatment Note [facility] Date: 09/27/2022 PRECAUTIONS: Fall, activity as tolerated SUBJECTIVE: Carlene is pleasant and agreeable to participating in PT. She states that she feels back to her baseline level of function and that she feels she can manage well at home. OBJECTIVE: PAIN: No c/o pain BED MOBILITY/TRANSFERS Sit-stand: SBA Stand-sit: SBA GAIT Assistive Device: Hemiwalker (R) Weight bearing: Full Assist: CGA Distance: 200' + 20' Deviation: Slow pacing, LOB x1 with self-recovery VITALS: 93% on RA with gait training TOILETING: Patient was incontinent of urine, requiring assist ASSESSMENT: Patient tolerated session without complaint. She demonstrates slow and steady pacing, and mostly steady gait with use of hemiwalker support. PLAN: Patient to discharge to home later today, per provider. Recommend PT follow up at discharge. TREATMENT CODE/TIME: 25 minutes; 62138 x2 (10:15)
--- NOTE | 2022-09-27 16:34 | PDOC.CMDIS ---
- If Service Date Differs Date of service: 09/27/22 Time of Service: 16:34 LACE Index Scoring Tool - Questions: Length of Stay (in days): 3 Acuity (Admit via E.D.?): Yes Comorbidities: Cerebrovascular Disease, Chronic Pulmonary Disease E.D. Visits: 2 - Answers: Total Score: 11 Risk of Readmission: High Risk Care Management Discharge Reason for Hospitalization: Bronchitis, COPD Discharge Plan: Kathleen returned home today with new HH PT. Her friend drove her home via private vehicle. She will follow up with her PCP and discharge plan of care. She was offered a bed at [facility] and the [facility], which she declined, as she preferred to return home, and PT stated that she is safe for discharge home. She is happy to be going home. Patient/Family Education Needs: Review discharge instructions and limitations, discussion of self care needs including ask me three. Services Needed at Discharge: Home Health Care Services (HH PT)
--- NOTE | 2022-09-28 15:04 | INDS_ITS ---
Date of service: 09/27/22 PT Notes Visit Reasons: Bronchitis;COPD Physical Therapy Inpatient Discharge Summary Date: 09/27/2022 Dates of service: 09/24/2022 through 09/27/2022 This is a clinical summary of care provided for the duration of dates listed above. No charge was made in the completion of this documentation. Referring Doctor: Olivia Castro NP PT Orders: PT CONSULT: Eval/treat Precautions: Fall. Standard. Activity as tolerated. Patient Profile/Admitting Diagnosis:? Kathleen is a 81-year-old female who presented to the ED on 09/23/2022 due to to weakness, cough, and shortness of breath.? Patient is admitted for management of repeated falls, kidney injury male COPD exacerbation, essential hypertension, hyperlipidemia, seizures, and grief reaction. S/P L shoulder steroid injection on 04/13/2022 for L rotator cuff tear,? goes to outpatient clinic for shoulder rehab. Head CT impression: 1. ? No acute intracranial findings. 2. ? Diffuse cerebral atrophy. Age-related periventricular white matter changes. 3. ? Old area of ischemia within the right frontoparietal lobe. PMHX: All Active Problems Discharge planning issues (Acute) DVT prophylaxis (Acute) Chronic obstructive lung disease (Acute) PFT'S 2009 FEV 1.15=59% continues to smoke Constipation (Chronic 11/14/17) Essential hypertension (Acute 03/30/13) Hyperlipidemia (Chronic) Lumbago (Chronic 05/10/13) Peripheral vascular disease (Acute) Jul [place] [facility] [place] [facility] [place] Polyp of colon (Acute) tubular adenoma Shoulder arthralgia (Chronic) Seizures (Acute) Carotid stenosis, left (Acute) 50-69% stenosis 04/2022; complete obstruction right internal carotid. Anxiety about health (Acute) Grief reaction (Chronic) Spouse? 08/13/21 passed Hand pain, left (Acute) CVA (cerebral vascular accident) (Chronic) Neuro est. between 04/2020-11/2021 Counseling regarding advanced directives and goals of care (Acute) Dilated bile duct (Acute ~02/2022) s/p ERCP [facility], 10mm dilation, no masses.? Due repeat MRI in 10/2022. Left rotator cuff tear arthropathy (Chronic) 40 mg Depo-Medrol injection: 04/13/2022 Nail dystrophy (Acute) Left upper quadrant abdominal pain (Acute) Seborrheic dermatitis of scalp (Acute) Productive cough (Acute) History of tobacco abuse (Acute) Medical History Disorder of ear, left Diverticulitis of colon H/O SIGMOID COLECTOMY Perichondritis Smoker (10/19/16) Surgical History? Extraction of cataract B/L 04/2013Ligation of fallopian tube Rotator Cuff Repair RIGHTS/P partial colectomy Trigger Finger release WRIST/THUMB SURGERY LEFT THUMB LEFT WRIST RIGHT THUMB Social History/Home Situation: Patient lives alone in a private home.? States that she has a son and a daughter who live close by.? Independent with all mobility ADLs using hemiwalker.? Used to be able to walk up to 30 feet safely.? Rides RCT for her grocery shopping and doctor's appointments. Equipment Owned/DME: Hemiwalker, SPC, emergency alert device Subjective: NT. See most recent FLAT LOCK MACHINE OPERATOR notes. Objective: General Observation: NT. See most recent FLAT LOCK MACHINE OPERATOR notes. Mental Status: NT. See most recent FLAT LOCK MACHINE OPERATOR notes. Pain: NT. See most recent FLAT LOCK MACHINE OPERATOR notes. ROM: Right Upper Extremity: ? Shoulder Flexion WFL. Shoulder abduction WFL. Elbow flexion WFL. Wrist flexion WFL. Functional opening and closing of hand WFL. Left Upper Extremity:? Shoulder Flexion allows up to 60 degrees with pain report at EOR. Shoulder abduction allows up to 40 degrees with pain report at EOR. Elbow flexion from flexed position of 30 degrees to 45 degrees. Wrist flexion less than 25% of AROM. Functional opening and closing of hand limited. Right Lower Extremity: Hip flexion WFL. Hip abduction WFL. Knee flexion WFL. Ankle dorsiflexion WFL. Ankle plantarflexion WFL. Left Lower Extremity: Hip flexion allows up to 90 degrees. Hip abduction allows up to 20 degrees.? Knee flexion 30 degrees to 90 degrees. Ankle dorsiflexion to neutral only. Ankle plantarflexion about 10 degrees. Strength: Right Upper Extremity: Shoulder flexors 4-/5. Shoulder abductors 4-/5. Elbow flexors 4-/5. Elbow extensors 4-/5. Senior Pricing Analyst weak. Left Upper Extremity: Shoulder flexors 3-/5. Shoulder abductors 3-/5. Elbow flexors 3-/5. Elbow extensors 3-/5. Senior Pricing Analyst weak. Right Lower Extremity: Hip flexors 4-/5. Hip abductors 4-/5. Knee flexors 4-/5. Knee extensors 4-/5. Ankle dorsiflexors 4-/5. Ankle plantarflexors 4-/5. Left Lower Extremity: Hip flexors 3-/5. Hip abductors 3-/5. Knee flexors 3-/5. Knee extensors 2-/5. Ankle dorsiflexors 2-/5. Ankle plantarflexors 3-/5. BED MOBILITY/TRANSFERS? Sit-stand: SBA ? Stand-sit: SBA? GAIT? Assistive Device: Hemiwalker (R)? Weight bearing: Full Assist: CGA? Distance:? 200' + 20'? Deviation: Slow pacing, LOB x1 with self-recovery.? Balance: Static Sitting: Poor Dynamic Sitting: Poor Static Standing: Poor Dynamic Standing: Poor NEURO: Spasticity/Hypertonicity in L UE/LE Unable to do 4-stage Balance Test Abnormal flexion sunergy in L UE,? extension synergy in L LE Babinski Reflex present in L LE L hemineglect in L UE/LE Trunk lean to R Assessment: Patient demonstrated functional mobility improvement during this episode of care as seen in th mobility level above and goal status below. Patient presents with clinical signs and symptoms consistent with current/admitting diagnoses that have resulted to mobility limitations, gait instability, generalized weakness, and overall ADL decline as demonstrated by the following impairment level findings: 1.? Decreased strength to L UE/LE major muscle groups 2.? Impaired standing balance 3.? Impaired activity tolerance 4.? Limitation of joint range of motion in L UE/LE 5.? Shortness of breath 6.? Pain in L shoulder from L rotator cuff tear and pre-existing hemiplegia 7. Grade 3 spasticity in L UE Impairments are contributing to the following functional limitations: 1.? Decline in bed mobility skills 2.? Decline in transfer skills 3.? Difficulty with ambulation without assistive device and physical assistance 4.? Increased completion time for mobility ADL performance 5.? Increased risk for falls 6.? Difficulty with managing steps alone safely Goals: Goals X1 week 1. Supine-Sit independent 2. Sit-Supine independent 3. Sit-Stand independent 4. Stand-Sit independent with hemiwalker 5. Bed-Chair independent with hemiwalker 6. Chair-Bed independent with hemiwalker 7. Independent gait on level surface with use of hemiwalker for at least 50 feet without report of pain nor dyspnea 8. Independent stair negotiation while holding onto R rail rails for at least 3 steps without report of pain nor dyspnea 9. Independent with home exercise program 10. Good static and dynamic standing balance/tolerance DISCHARGE RECOMMENDATIONS: [] ? Home with no services [] [] ? Home with services [specify] [] ? Home with outpatient PT [] [] ? SNF for continued rehabilitation [] ? [facility] Care [] [] ? SNF versus LTC based on ability to participate and progress [] [X] HH PT/OT versus SNF based on progress towards goals TREATMENT CODE/TIME: NC Thank you for the opportunity to participate in the care of this patient. Rebecca Regan PT, DPT, CLT [facility] [place], [place]
== END 2022-09-27 13:15 | disposition home health service (06) | DRG 202 ==
LOC: ER 13:13 → MS 17:50
PROVIDERS: Nurse Practitioner Family; Admitting Provider Internal Medicine; Emergency Provider Physician Assistant; PCP Nurse Practitioner Family; Visit Provider Internal Medicine
DX: J41.0 Simple chronic bronchitis (principal); I69.354 Hemiplegia and hemiparesis following cerebral infarction affecting left non-dominant side; I10 Essential (primary) hypertension; E78.5 Hyperlipidemia, unspecified; I73.9 Peripheral vascular disease, unspecified; K59.00 Constipation, unspecified; G89.29 Other chronic pain; M54.50 Low back pain, unspecified; G40.909 Epilepsy, unspecified, not intractable, without status epilepticus; I65.23 Occlusion and stenosis of bilateral carotid arteries; Z90.49 Acquired absence of other specified parts of digestive tract; F17.210 Nicotine dependence, cigarettes, uncomplicated; E78.2 Mixed hyperlipidemia; F43.20 Adjustment disorder, unspecified
CPT/HCPCS: 36415; 80048; 80053; 83690; 87637; 94618; 94640; 96361; 96374; 97162; 97530; 99285; 70450; 71046; 73502; 81003; 81015; 83605; 83735; 83880; 84484; 85025; 87070; 87205; 94664; 99222; 99232; 99239; G0378; J0696; J1650; J2930; J3480; J3490; J7512; J7620

== ENCOUNTER 2022-09-30 12:43 | Outpatient (REF) | payer MEDICARE, OTHER, SELFPAY ==
[2022-09-30 13:11] LABS: Anion Gap 9.7 mmol/L (3-11); BUN 38 mg/dL (7-18); CO2 29.3 mmol/L (21.0-32.0); CREATININE 1.3 mg/dL (0.55-1.02); Calcium 9.9 mg/dL (8.5-10.1); Chloride 102 mmol/L (98-107); Estimated GFR 41.83 (mL/min/1.73m2); Glucose 177 mg/dL (74-106); Sodium 141 mmol/L (136-145)
== END 2022-09-30 12:44 | disposition home or self-care (01) ==
LOC: LBN 12:43
PROVIDERS: PCP Nurse Practitioner Family; Visit Provider Nurse Practitioner Family
DX: E87.6 Hypokalemia (principal)
CPT/HCPCS: 80048

== ENCOUNTER 2022-10-06 21:07 | Inpatient (IN) | payer MEDICARE, OTHER, MEDICAID, SELFPAY ==
[2022-10-06] VITALS (37 sets, daily range): BP systolic 72–227; BP diastolic 31–133; PULSE 61–145; RESP 10–38; TEMP 36.7; O2SAT 89–100
--- NOTE | 2022-10-06 20:47 | RT.EKG_ITS ---
APPROVED REPORT Exam: Resting ECG Reason for Exam: sob Patient Location: E HR:62 bpm ECG Measurements Heart Rate 62 AXIS NE 155 P 79 QRSd 80 QRS 12 QT 481 T 75 QTc 488 Conclusion Sinus rhythm...normal P axis, V-rate 60- 99 Probable left atrial enlargement...P >50mS, <-0.10mV V1
[2022-10-06] MEDS: methylPREDNISolone SUCC 125 MG VIAL 80 MG IVP (21:02)
[2022-10-06] MEDS: Levalbuterol 1.25 MG/3 ML UPD VIAL UPD ×2 (21:04→21:27)
[2022-10-06] MEDS: Ipratropium 0.5 MG/2.5 ML UPD VIAL UPD ×2 (21:05→21:26)
--- NOTE | 2022-10-06 21:15 | DI.CT_ITS ---
Exam(s) CT HEAD WO EXAM: CT HEAD WO CLINICAL HISTORY: ams. TECHNIQUE: Imaging Protocol: Axial computed tomography images with coronal and sagittal reformatted images were created and reviewed COMPARISON: CT CT HEAD WO from 09/24/2022 FINDINGS: There are no skull fractures. There is no fluid in the visualized paranasal sinuses. There is no evidence of intracranial hemorrhage, mass effect, or shift of midline structures. There are no extra-axial fluid collections. The ventricles are not enlarged or shifted and there is no blo od within the ventricular system nor within the basal cisterns. Again noted is area of abnormal hypodensity in the right frontal lobe, unchanged, consistent prior ri ght frontal infarct. There is mild ex vacuo dilatation of the ipsilateral anterior horn of the right lateral ventricle. In addition, there are relatively symmetrical small areas of hypodensity in the posterior basal gangl ia bilaterally which are probably nonhemorrhagic lacunar infarcts, previously present. No obvious ne w territorial infarct. IMPRESSION: Multilevel findings as above but without obvious new findings. If clinically indicated MRI can be pe rformed for added sensitivity and specificity. RADIATION DOSE DELIVERED: 724.04mGy.cm Total DLP DATA REPOSITORY: All CT scans at this facility are submitted to the National Radiology Data Registry (NRDR) Dose Index Registry (DIR) with the [employer] (ACR). RADIATION OPTIMIZATION: All CT scans at this facility use at least one of these dose optimization te chniques: automated exposure control; mA and/or kV adjustment per patient size (includes targeted exa ms where dose is matched to clinical indication); or iterative reconstruction.
[2022-10-06 21:16] LABS: pH (Venous) 7.32 (7.31-7.41)
[2022-10-06 21:17] LABS: Abs Immature Grans 0.03 10^3/uL (0.0-0.06); Absolute Basophil Count 0.01 10^3/uL (0.0-0.2); Absolute Eosinophil Count 0.04 10^3/uL (0.0-0.7); Absolute Lymphocyte Count 2.34 10^3/uL (1.2-3.4); Absolute Monocyte Count 1.33 10^3/uL (0.1-0.8); Absolute Neutrophil Count 4.31 10^3/uL (1.2-6.7); BE (Venous) -3 mmol/L (-2-3); Basophils % 0.1; Eosinophils % 0.5; HCO3 (Venous) 21 mmol/L (23-28); HCT 33.5 % (36.0-46.0); HGB 10.6 g/dL (11.2-15.7); Immature Grans % 0.4; MCH 30.5 pg (27.0-33.0); MCHC 31.6 % (32.0-36.0); MCV 96 fL (80-95); MPV 10.8 fL (8.0-11.0); Monocytes % 16.5; Neutrophils % 53.5; O2 Sat (Venous) 70 %; Platelet Count 142 10^3/uL (130-400); RBC 3.48 10^6/uL (3.93-5.22); RDW 14.6 % (11.7-14.6); RDW-SD 50.9 fL; TCO2 (Venous) 45 mmol/L (24-29); WBC 8.06 10^3/uL (4.4-10.8); pCO2 (Venous) 45 mmHg (41-51); pO2 (Venous) 41 mmHg
--- NOTE | 2022-10-06 21:25 | ED.GENADUL_ITS ---
Discharge Plan Disposition Patient Disposition: Admit to [facility] Discharge Details Clinical Impression: Hypotension, JANNA (acute kidney injury), Acute bronchitis, Acute CHF, Chronic obstructive lung disease Admit Date/Time: 10/06/22 23:40 Admit Provider: Tammi Barnard Attending Provider: Tammi Barnard Primary Care Provider: Samir Casillas ED Provider: Cheyanne Hyatt Discharge Data Discharge Date/Time-TO BE ENTERED AT DEPARTURE: 10/07/22 00:49 Medical Decision Making <MARLENA Enrique - Last Filed: 10/09/22 10:13> 81-year-old female presenting with fatigue and increased work of breathing. Denies any chest discomfort States her symptoms are similar to her prior presentations and recent admission States she was started on cefuroxime today with persistent symptoms since admission She does not wear oxygen at home. She denies any fever or chills. She denies any fluid retention. Initially report of hypotensive in the field and received 1500 cc bolus of NS Normotensive initially upon arrival Secondary to increased work of breathing, patient was placed on oxygen initially and given Xopenex and ipratropium She had reported improvement of symptoms until she got up to use the commode and had an episode of tachycardia and significant increase in work of breathing BiPAP was therefore initiated at 10/5 which patient tolerated quite well Her CODE STATUS is DNR/DNI, this is confirmed She was given 80 mg of Solu-Medrol I would not give additional antibiotics at this time as she is currently on antibiotics and has been consistently on antibiotics for the past 2 weeks and her procalcitonin is less than 0.[address] imaging, however her creatinine is 2 and GFR is 24 she does not endorse any chest discomfort and has diffuse wheezes throughout, likely consistent with volume overload and COPD, EKG does not show acute abnormality, initial troponin negative Head CT per radiology interpretation and my review appears unchanged from prior Dr. Mcintosh who performed bedside ultrasound and noted curly B-lines therefore 20 mg of Lasix was administered Patient did become slightly hypotensive, 89/40, therefore PEEP was decreased and 250 cc bolus of Lasix was administered Patient will be admitted to the hospital for management of CHF with exacerbation, acute respiratory failure, acute renal insufficiency, COPD with exacerbation HPI <MARLENA Enrique - Last Filed: 10/09/22 10:13> General Date/Time Provider Initiated Documentation: 10/06/22 21:18 . HPI Narrative: This 81-year-old female with history of COPD, constipation, hypertension, peripheral vascular disease, carotid stenosis who presents with increased work of breathing and. Of reported alteration in mental status. Patient states she was very tired and was staring off. Denies any fever or chills. Denies any falls or injuries. States she was recently hospitalized for COPD exacerbation and actually saw her doctor today was placed on cefuroxime. Denies any calf pain or swelling. States that she was administered 1500 cc of normal saline in the ambulance and her breathing worsened after that. Related Data Home Medications Medication Instructions Recorded Confirmed multivit with 1 tab PO DAILY 07/18/20 10/06/22 dldfzasp-ajtd-RU-lutein 8 mg iron-400 mcg-300 mcg tablet (Centrum Silver Women) lisinopril 20 1 tab PO DAILY #90 tabs 05/11/22 10/06/22 mg-hydrochlorothiazide 25 mg tablet rosuvastatin 40 mg tablet 40 mg PO DAILY #90 tabs 05/24/22 10/06/22 ketoconazole 2 % shampoo 1 applic topical .Twice a week PRN 06/21/22 10/06/22 seborrheic derm #120 mL aspirin 81 mg tablet,delayed 81 mg PO DAILY 09/23/22 10/06/22 release benzonatate 100 mg capsule 100 mg PO DAILY 09/23/22 10/06/22 fluticasone propionate 50 1 spray intranasal DAILY 09/23/22 10/06/22 mcg/actuation nasal spray,suspension (Flonase Allergy Relief) mometasone 0.1 % topical cream 1 applic topical BID 09/23/22 10/06/22 neomycin 3.5 mg/g-polymyxin B 1 applic ophthalmic (eye) TID 09/23/22 10/06/22 10,000 unit/g-dexameth 0.1 % eye oint nicotine (polacrilex) 4 mg gum 4 mg buccal Q2H 09/23/22 10/06/22 nicotine 21 mg/24 hr daily 1 patch transdermal DAILY 09/23/22 10/06/22 transdermal patch sertraline 100 mg tablet 100 mg PO DAILY 09/23/22 10/06/22 tizanidine 4 mg tablet 4 mg PO BID 09/23/22 10/06/22 albuterol sulfate 90 mcg/actuation 2 puff inhalation 6XD PRN #8.5 09/27/22 10/06/22 aerosol inhaler grams doxycycline hyclate 100 mg capsule 100 mg PO BID #8 caps 09/27/22 10/06/22 cefuroxime axetil 500 mg tablet 500 mg PO BID copd exac #10 tabs 10/06/22 10/06/22 prednisone 20 mg tablet 40 mg PO DAILY #10 tabs 10/06/22 10/06/22 umeclidinium 62.5 mcg/actuation 1 inh inhalation DAILY #30 ea 10/06/22 10/06/22 blister powder for inhalation (Incruse Ellipta) Previous Rx's Medication Instructions Recorded lisinopril 20 1 tab PO DAILY #90 tabs 05/11/22 mg-hydrochlorothiazide 25 mg tablet rosuvastatin 40 mg tablet 40 mg PO DAILY #90 tabs 05/24/22 ketoconazole 2 % shampoo 1 applic topical .Twice a week PRN 06/21/22 seborrheic derm #120 mL albuterol sulfate 90 mcg/actuation 2 puff inhalation 6XD PRN #8.5 09/27/22 aerosol inhaler grams doxycycline hyclate 100 mg capsule 100 mg PO BID #8 caps 09/27/22 cefuroxime axetil 500 mg tablet 500 mg PO BID copd exac #10 tabs 10/06/22 prednisone 20 mg tablet 40 mg PO DAILY #10 tabs 10/06/22 umeclidinium 62.5 mcg/actuation 1 inh inhalation DAILY #30 ea 10/06/22 blister powder for inhalation (Incruse Ellipta) Allergies Allergy/AdvReac Type Severity Reaction Status Date / Time baclofen AdvReac Intermediate mental Verified 10/06/22 14:13 status changes General Stated Complaint: AMS/LOC IFTIKHAR: 3 PFSH <MARLENA Enrique - Last Filed: 10/09/22 10:13> All Active Problems Ischemic cerebrovascular accident (CVA) due to atherosclerosis of large extracranial artery (Acute) Elevated troponin (Acute) Left hemiparesis (Acute) 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 occlusion (Acute) Hypotension (Acute) JANNA (acute kidney injury) (Acute) Discharge planning issues (Acute) DVT prophylaxis (Acute) Unresponsive episode (Acute) Acute bronchitis (Acute) Hypoxia (Acute) Acute CHF (Acute) COPD exacerbation (Acute) Chronic obstructive lung disease (Chronic) PFT'S 2009 FEV 1.15=59% continues to smoke Constipation (Chronic 11/14/17) Essential hypertension (Chronic 03/30/13) Lumbago (Chronic 05/10/13) Peripheral vascular disease (Acute) Jul 2014 [facility] [place] aorto bifem bypass LEFT ILIAC STENT [facility] [place] Polyp of colon (Acute) tubular adenoma Shoulder arthralgia (Chronic) Carotid stenosis, left (Acute) 50-69% stenosis 04/2022; complete obstruction right internal carotid. Anxiety about health (Acute) Grief reaction (Chronic) Spouse 08/13/21 passed Hand pain, left (Acute) CVA (cerebral vascular accident) (Chronic) Neuro est. between 04/2020-11/2021 Counseling regarding advanced directives and goals of care (Acute) Dilated bile duct (Acute ~02/2022) s/p ERCP [facility], 10mm dilation, no masses. Due repeat MRI in 10/2022. Left rotator cuff tear arthropathy (Chronic) 40 mg Depo-Medrol injection: 04/13/2022 Nail dystrophy (Acute) Left upper quadrant abdominal pain (Acute) Seborrheic dermatitis of scalp (Acute) Productive cough (Acute) History of tobacco abuse (Acute) Medical History Disorder of ear, left Diverticulitis of colon H/O SIGMOID COLECTOMY Perichondritis Smoker (10/19/16) Surgical History Extraction of cataract B/L 04/2013 Ligation of fallopian tube Rotator Cuff Repair RIGHT S/P partial colectomy Trigger Finger release WRIST/THUMB SURGERY LEFT THUMB LEFT WRIST RIGHT THUMB Family History Mother Diabetes Essential hypertension Stroke Father , 55 Heart disease Stroke Brother , 71 Complications from surgery No problems noted. Son No problems noted. Son No problems noted. Daughter No problems noted. Daughter No problems noted. Social History Smoking/Tobacco Use Status: Current every day Tobacco Type: cigarettes Smoking packs per day: 0.5 Smoking cigarettes per day: 10.0 Years smoked: 63 Smoking pack-years: 31.50 Tobacco: How many years used: 63 Quit status: considering quitting Second Hand Exposure: Yes Smoking risk assessment performed?: Yes Alcohol Intake: never Drug use: Rarely Counseling given: No Counseling provided: none Caregiver/Support person: No Household members: none Housing: house Number of Children: 4 Communication Needs: Hard of Hearing Do you need help understanding health information?: Rarely Pets and animals: Yes Pets and animals: dog(s) Sexually active: No Do you think of yourself as: straight/heterosexual Current gender identity: female What is your relationship status?: How often do you talk on the phone with friends or family?: three or more times per week Do you belong to any clubs or organized social groups?: no Panel score (0-1 are the most socially isolated patients): 1 What type of physical activity do you participate in: none Darlene/Islam: No preference Special darlene needs: No Seatbelt use: always Helmet use: No Drive intox or ride w/intox semi truck driver: No Do you feel safe at home: Yes Do you feel safe in your relationship?: Yes Exam <MARLENA Enrique - Last Filed: 10/09/22 10:13> Const General: cooperative and acute distress Orientation: alert and oriented x3 HENMT Head: normal to inspection Eyes Other: aniscoria Chest Chest: normal inspection of the chest Resp Effort & Inspection: abnormal respiratory pattern Auscultation: crackles and wheezes Cardio Rate: regular rate Rhythm: regular rhythm GI Inspection: normal to inspection Skin General skin exam: no rashes or lesions noted Neuro General: patient alert and patient oriented x3 Extrem General: normal to inspection Other: 1+ edema to bilateral lower extremities, nontender, neurovascularly intact Course <MARLENA Enrique - Last Filed: 10/09/22 10:13> Vital Signs Vital signs: Vital Signs Temperature 36.7 C 10/06/22 20:45 Pulse 70 10/06/22 20:45 Respiratory Rate 20 10/06/22 20:45 Blood Pressure 114/70 10/06/22 20:45 Temperature 36.7 C 10/06/22 20:45 Temperature Source Temporal Artery Scan 10/06/22 20:45 Pulse 70 10/06/22 20:45 Respiratory Rate 20 10/06/22 20:45 Respiratory Effort Short of Breath, Labored 10/06/22 20:54 Respiratory Depth Deep 10/06/22 20:54 Respiratory Pattern Tachypnea 10/06/22 20:54 Blood Pressure 114/70 10/06/22 20:45 Blood Pressure Position Sitting 10/06/22 20:45 Oxygen Delivery Method Room Air 10/06/22 20:45 Oxygen Flow Rate 0 10/06/22 20:45 Pain Level 0 10/06/22 20:45 Lab/Test Results Lab/Test Results: 10/06/22 21:00 Blood Blood Culture - Pending 10/06/22 21:00 Blood Blood Culture - Pending Laboratory Tests Range/Units 10/06/22 10/06/22 10/06/22 21:00 21:00 21:00 WBC (4.4-10.8) 10^3/uL 8.06 RBC (3.93-5.22) 10^6/uL 3.48 L Hgb (11.2-15.7) g/dL 10.6 L Hct (36.0-46.0) % 33.5 L MCV (80-95) fL 96 H MCH (27.0-33.0) pg 30.5 MCHC (32.0-36.0) % 31.6 L RDW (11.7-14.6) % 14.6 Plt Count (130-400) 10^3/uL 142 MPV (8.0-11.0) fL 10.8 Immature Gran % 0.4 Neutrophils % 53.5 Lymphocytes % 29.0 Monocytes % 16.5 Eosinophils % 0.5 Basophils % 0.1 Nucleated RBC % (0.0-0.3) % 0.0 Absolute Neutrophils (1.2-6.7) 10^3/uL 4.31 Absolute Lymphocytes (1.2-3.4) 10^3/uL 2.34 Absolute Monocytes (0.1-0.8) 10^3/uL 1.33 H Absolute Eosinophils (0.0-0.7) 10^3/uL 0.04 Absolute Basophils (0.0-0.2) 10^3/uL 0.01 VBG pH (7.31-7.41) 7.32 VBG pCO2 (41-51) mmHg 45 VBG pO2 mmHg 41 VBG HCO3 (23-28) mmol/L 21 L VBG Total CO2 (24-29) mmol/L 45 H VBG O2 Saturation % 70 VBG Base Excess (-2-3) mmol/L -3 L VBG Lactate (0.6-1.4) mmol/L 2.0 H Critical Care Time <MARLENA Enrique - Last Filed: 10/09/22 10:13> Critical Care Time Attestation: Approximately 45 minutes of critical care time secondary to telemetry monitoring, diagnostic imaging interpretation, diagnostic lab interpretation, BiPAP administration, oxygen administration, IV fluid resuscitation for acute hypotension, nebulizer treatments for respiratory distress and volume overload treatment with IV Lasix, admission to the intensive care unit, IV antibiotic initiation <Dejon Oliveros MD - Last Filed: 10/06/22 21:56> Limited Cardiac Exam DATE OF EXAM: 10/06/22 TIME OF EXAM: 21:54 PROVIDER THAT PERFORMED THE STUDY: Dejon Oliveros IS THIS A REPEAT EXAM DURING THIS ENCOUNTER: no REASON FOR EXAM: Dyspnea VISUALIZED STRUCTURES: Four Chambers VIEW OBTAINED: Parasternal long-axis PERTINENT FINDINGS/IMPRESSION: No pericardial effusion and No RV dilation Exam complete Limited Thoracic Lung Exam DATE OF EXAM: 10/06/22 TIME OF EXAM: 21:55 PROVIDER THAT PERFORMED THE STUDY: Dejon Oliveros IS THIS A REPEAT EXAM DURING THIS ENCOUNTER: No REASON FOR EXAM: Shortness ofBreath VISUALIZED STRUCTURES: right anterior and left anterior PERTINENT FINDINGS/IMPRESSION: B-lines/left side and B-lines/right side Exam complete
[2022-10-06 21:36] LABS: ALT 79 U/L (14-59); AST 59 U/L (15-37); Albumin 2.8 g/dL (3.4-5.0); Alkaline Phosphatase 115 U/L (46-116); Anion Gap 9.2 mmol/L (3-11); BUN 42 mg/dL (7-18); Bilirubin, Total 0.3 mg/dL (0.2-1.0); CO2 23.8 mmol/L (21.0-32.0); Calcium 8.4 mg/dL (8.5-10.1); Chloride 106 mmol/L (98-107); Estimated GFR 24.94 (mL/min/1.73m2); Glucose 184 mg/dL (74-106); Potassium 5.3 mmol/L (3.5-5.1); Sodium 139 mmol/L (136-145); Total Protein 5.7 g/dL (6.4-8.2)
[2022-10-06 21:38] LABS: NT-proBNP 1740 pg/mL (<300); Troponin I 51 ng/L (<or=60)
--- NOTE | 2022-10-06 21:45 | DI.RAD_ITS ---
Exam(s) XR CHEST 2V PA LATERAL EXAM: XR CHEST 2V PA LATERAL CLINICAL HISTORY: hypoxia, resp distress. TECHNIQUE: 2D digital imaging was performed. COMPARISON: CR XR CHEST 2V PA LATERAL from 09/23/2022 FINDINGS: 2 views: Heart size is normal. The mediastinum is not widened. Lungs are clear. No infiltrates nor pleural effusions. Hyperinflation again noted. IMPRESSION: No acute pulmonary findings. DATA REPOSITORY: RADIATION DOSE DELIVERED:
[2022-10-06 21:54] LABS: COVID-19 PCR Negative (Negative); Influenza A PCR Negative (Negative); Influenza B PCR Negative (Negative); RSV PCR Negative (Negative)
[2022-10-06 21:55] LABS: Source Nasopharynx
[2022-10-06] MEDS: Furosemide 20 MG/2 ML VIAL IVP (21:55)
[2022-10-06 22:06] LABS: Procalcitonin < 0.1 ng/mL
[2022-10-06] MEDS: LORazepam 2 MG/ML VIAL 0.5 MG IVP (22:15)
[2022-10-06] MEDS: Lactated Ringers 250 ML IV (22:55)
--- NOTE | 2022-10-06 23:05 | DI.VRAD_ITS ---
PROCEDURE INFORMATION: Exam: CT Head Without Contrast Exam date and time: 10/06/2022 10:17 PM Age: 81 years old Clinical indication: Stroke-like symptoms; Altered mental status/memory loss; Additional info: AMS TECHNIQUE: Imaging protocol: Computed tomography of the head without contrast. Radiation optimization: All CT scans at this facility use at least one of these dose optimization techniques: automated exposure control; mA and/or kV adjustment per patient size (includes targeted exams where dose is matched to clinical indication); or iterative reconstruction. Other technique: STROKE PROTOCOL was implemented. COMPARISON: CT HEAD WO 09/24/2022 5:35 PM FINDINGS: Brain: There is no acute intracranial hemorrhage, mass effect or midline shift. No large acute territorial infarct identified. There are patchy regions of hypodensity in the periventricular and subcortical white matter, likely on the basis of chronic microvascular ischemic disease. There is a region of encephalomalacia in the right frontal lobe, likely from remote infarct. Small hypodensity in the basal ganglia may represent a prominent perivascular space versus a remote lacunar infarct. Cerebral ventricles: The ventricles and sulci are prominent in size, which is at least in part due to global cerebral volume loss. Paranasal sinuses: Visualized sinuses are unremarkable. No fluid levels. Mastoid air cells: Visualized mastoid air cells are well aerated. Bones/joints: No acute fracture. Soft tissues: Unremarkable. IMPRESSION: No acute intracranial hemorrhage, mass effect or midline shift. If there is further clinical concern for acute infarct, MRI may be considered. ASSESSMENT: ASPECTS (Tamia Stroke Program Early CT Score) is 10. Dictated and Authenticated by: Jennifer Moore MD. Ordering:AIDE Edward MD
--- NOTE | 2022-10-06 23:08 | DI.VRAD_ITS ---
PROCEDURE INFORMATION: Exam: XR Chest Exam date and time: 10/06/2022 10:26 PM Age: 81 years old Clinical indication: Shortness of breath; Additional info: Hypoxia, resp distress TECHNIQUE: Imaging protocol: Radiologic exam of the chest. Views: 2 views. COMPARISON: CR XR CHEST 2V PA LATERAL 09/23/2022 1:59 PM FINDINGS: Lungs: Unremarkable. No consolidation. Pleural spaces: No pleural effusion. No pneumothorax. Heart/Mediastinum: Unremarkable. No cardiomegaly. Bones/joints: Unremarkable. IMPRESSION: No acute findings. Dictated and Authenticated by: Jennifer Moore MD. Ordering:AIDE Edward MD
[2022-10-06] MEDS: PIPERACILLIN/TAZO 3.375 GM in Normal Saline 50 ML IVPB (23:21)
--- NOTE | 2022-10-06 23:52 | HPE_ITS ---
Date of service: 10/06/22 Time of Service: 23:52 Assessment and Plan Assessment and plan (1) COPD exacerbation: Status: Acute Assessment and plan: Continue steroids, antibiotics, nebulizer therapy initiated in the ED. Obtain sputum culture. Encourage pulmonary toilet. Wean O2 as tolerated. (2) Acute CHF: Status: Acute Assessment and plan: Treatment complicated by hypotension. Await D-dimer. S/p BiPAP and lasix in the ER. Obtain echo. Diurese as BP permits. (3) Acute bronchitis: Status: Acute Assessment and plan: As above Tx with nebs, steroids, abx, antitussives. Encourage pulmonary toilet. (4) Hypotension: Status: Acute Assessment and plan: In setting of lactic acidosis, respiratory symptoms, but also CHF. Responsive to IVF, but this option is limited due to CHF. Consider albumin + vasopressors if BPs don't improve after another 250 cc bolus. The patient refused vee catheter - unable to keep timely track of intake and output. Await D-dimer to ensure no PE. Obtain an echocardiogram. With procalcitonin<0.1, septic shock is unlikely. MOnitor in the ICU. (5) Hypoxia: Status: Acute Assessment and plan: Multifactorial, due to acute exacerbation of COPD with acute bronchitis as well as acute CHF. As above Wean O2 as tolerated. (6) Unresponsive episode: Status: Acute Assessment and plan: The patient was responsive by the time she arrived to the ER. In setting of hypotension, with h/o R MCA CVA and ?seizures in the past. H/o B carotid stenosis. CT head negative. Suspect that this was symptomatic hypotension, but the patient does have L facial weakness which I do not see reported on her last admission, so an acute CVA is also possible. Will give asa. Check lipid panel. Obtain MRI/MRA brain. Will consult neurology to see if further workup is recommended. Will monitor neuro checks. Check echo, US carotid. C/s PT, OT, speech. (7) JANNA (acute kidney injury): Status: Acute Assessment and plan: Obtain FeUrea. Obtain US renal. The patient refuses a vee catheter. Obtain UA. Check CPK. Try to maintain adequate MAP. Recheck in am. (8) DVT prophylaxis: Status: Acute Assessment and plan: SC heparin (9) Discharge planning issues: Status: Acute Assessment and plan: DNR/DNI C/s palliative care Admit to ICU. 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 The patient does not recall how she got to the hospital - the last thing she remembers is sitting at the table in the kitchen, probably trying to fall asleep. The patient states that 4 days ago she had multiple bouts of diarrhea that left her feeling weak. This has since resolved. Two days ago, she developed worsening shortness of breath and cough. Denies fevers. The patient saw her PCP today reporting cough with increased sputum production (yellow). She was started on cefuroxime for a COPD exacerbation. The patient thinks she had overexerted herself. When EMS arrived, the patient was hypotensive (70/30). She was given 1.5 L of IVF by EMS, which, reportedly, made her breathing worse thou gh it did improve her BP. In the ER, she was started on BiPAP, given a dose of IV furosemide 20 mg, nebulizer treatments (which resulted in her going into sinus tachycardia in 140s), solumedrol 80 mg x1, ativan. The patient then again became hypotensive (89/40). At this point, she was taken off of BiPAP and given a bolus of IVF. While her procalcitonin was negative, the patient received zosyn due to the purulent description of her sputum. Her imaging does show fluid overload but no clear infiltrate. CT of the head was negative. The patient is DNR, DNI, and had requested ER staff to not place her back on BiPAP at this time. Hospitalist admission to the ICU was requested. Review of Systems All systems reviewed & are unremarkable except as noted in HPI and below PFSH All Active Problems Hypotension (Acute) JANNA (acute kidney injury) (Acute) Discharge planning issues (Acute) DVT prophylaxis (Acute) Unresponsive episode (Acute) Acute bronchitis (Acute) Hypoxia (Acute) Acute CHF (Acute) COPD exacerbation (Acute) Chronic obstructive lung disease (Chronic) PFT'S 2009 FEV 1.15=59% continues to smoke Constipation (Chronic 11/14/17) Essential hypertension (Chronic 03/30/13) Lumbago (Chronic 05/10/13) Peripheral vascular disease (Acute) Jul 2014 [facility] aorto bifem bypass LEFT ILIAC STENT [facility] 03/2010 Polyp of colon (Acute) tubular adenoma Shoulder arthralgia (Chronic) Carotid stenosis, left (Acute) 50-69% stenosis 04/2022; complete obstruction right internal carotid. Anxiety about health (Acute) Grief reaction (Chronic) Spouse 08/13/21 passed Hand pain, left (Acute) CVA (cerebral vascular accident) (Chronic) Neuro est. between 04/2020-11/2021 Counseling regarding advanced directives and goals of care (Acute) Dilated bile duct (Acute ~02/2022) s/p ERCP [facility], 10mm dilation, no masses. Due repeat MRI in 10/2022. Left rotator cuff tear arthropathy (Chronic) 40 mg Depo-Medrol injection: 04/13/2022 Nail dystrophy (Acute) Left upper quadrant abdominal pain (Acute) Seborrheic dermatitis of scalp (Acute) Productive cough (Acute) History of tobacco abuse (Acute) Medical History Disorder of ear, left Diverticulitis of colon H/O SIGMOID COLECTOMY Perichondritis Smoker (10/19/16) Surgical History Extraction of cataract B/L 04/2013 Ligation of fallopian tube Rotator Cuff Repair RIGHT S/P partial colectomy Trigger Finger release WRIST/THUMB SURGERY LEFT THUMB LEFT WRIST RIGHT THUMB Family History Mother Diabetes Essential hypertension Stroke Father , 55 Heart disease Stroke Brother , 71 Complications from surgery No problems noted. Son No problems noted. Son No problems noted. Daughter No problems noted. Daughter No problems noted. Social History Smoking/Tobacco Use Status: Current every day Tobacco Type: cigarettes Smoking packs per day: 0.5 Smoking cigarettes per day: 10.0 Years smoked: 63 Smoking pack-years: 31.50 Tobacco: How many years used: 63 Quit status: considering quitting Second Hand Exposure: Yes Smoking risk assessment performed?: Yes Alcohol Intake: never Drug use: Rarely Counseling given: No Counseling provided: none Caregiver/Support person: No Household members: none Housing: house Number of Children: 4 Communication Needs: Hard of Hearing Do you need help understanding health information?: Rarely Pets and animals: Yes Pets and animals: dog(s) Sexually active: No Do you think of yourself as: straight/heterosexual Current gender identity: female What is your relationship status?: How often do you talk on the phone with friends or family?: three or more times per week Do you belong to any clubs or organized social groups?: no Panel score (0-1 are the most socially isolated patients): 1 What type of physical activity do you participate in: none Darlene/Amish: No preference Special darlene needs: No Seatbelt use: always Helmet use: No Drive intox or ride w/intox personal driver: No Do you feel safe at home: Yes Do you feel safe in your relationship?: Yes Meds Allergies and Home Medications Allergies Allergy/AdvReac Type Severity Reaction Status Date / Time baclofen AdvReac Intermediate mental Verified 10/06/22 14:13 status changes Home Medications Medication Instructions Recorded Confirmed Type multivit with 1 tab PO DAILY 07/18/20 10/06/22 History unnqnntc-iemu-TB-lutein 8 mg iron-400 mcg-300 mcg tablet (Centrum Silver Women) lisinopril 20 1 tab PO DAILY #90 tabs 05/11/22 10/06/22 Rx mg-hydrochlorothiazide 25 mg tablet rosuvastatin 40 mg tablet 40 mg PO DAILY #90 tabs 05/24/22 10/06/22 Rx ketoconazole 2 % shampoo 1 applic topical .Twice a week PRN 06/21/22 10/06/22 Rx seborrheic derm #120 mL aspirin 81 mg tablet,delayed 81 mg PO DAILY 09/23/22 10/06/22 History release benzonatate 100 mg capsule 100 mg PO DAILY 09/23/22 10/06/22 History fluticasone propionate 50 1 spray intranasal DAILY 09/23/22 10/06/22 History mcg/actuation nasal spray,suspension (Flonase Allergy Relief) mometasone 0.1 % topical cream 1 applic topical BID 09/23/22 10/06/22 History neomycin 3.5 mg/g-polymyxin B 1 applic ophthalmic (eye) TID 09/23/22 10/06/22 History 10,000 unit/g-dexameth 0.1 % eye oint nicotine (polacrilex) 4 mg gum 4 mg buccal Q2H 09/23/22 10/06/22 History nicotine 21 mg/24 hr daily 1 patch transdermal DAILY 09/23/22 10/06/22 History transdermal patch sertraline 100 mg tablet 100 mg PO DAILY 09/23/22 10/06/22 History tizanidine 4 mg tablet 4 mg PO BID 09/23/22 10/06/22 History albuterol sulfate 90 mcg/actuation 2 puff inhalation 6XD PRN #8.5 09/27/22 10/06/22 Rx aerosol inhaler grams doxycycline hyclate 100 mg capsule 100 mg PO BID #8 caps 09/27/22 10/06/22 Rx cefuroxime axetil 500 mg tablet 500 mg PO BID copd exac #10 tabs 10/06/22 10/06/22 Rx prednisone 20 mg tablet 40 mg PO DAILY #10 tabs 10/06/22 10/06/22 Rx umeclidinium 62.5 mcg/actuation 1 inh inhalation DAILY #30 ea 10/06/22 10/06/22 Rx blister powder for inhalation (Incruse Ellipta) Exam Narrative Exam Narrative: General: Pleasant elderly who is A&Ox3, audibly wheezing, but does not appear to have increased work of breathing, speaking in full sentences, 1L of O2 by NC Neurological: A&Ox3, L facial droop at rest but a symmetric smile, L eye ptosis, LUE and LLE weakness (0/5 LLE, 4/5 LUE), 5/5 strength RUE/RLE, tremors LUE Psychiatric: Appropriate speech pattern/content Skin: Visible skin intact HEENT: Atraumatic, normocephalic, EOMI, dry MM, clear oropharynx, no submandibular or cervical lymphadenopathy, no goiter or JVD Cardiovascular: RRR, no m/r/g Lungs: rales L base, otherwise faint expiratory wheezing B Gastrointestinal: soft, nontender, nondistended, well healed midline laparotomy incision; a large ventral hernia Genitourinary: deferred Extremities: no edema BLEs, +1 pedal pulse RLE, trace pedal pulse LLE, no clubbing/cyanosis Results Imaging Additional studies: CT head w/o contrast: No acute intracranial hemorrhage, mass effect or midline shift. If there is further clinical concern for acute infarct, MRI may be considered. CXR: No acute findings. EKG: HR 62, NSR, no acute ischemia Labs 10/06/22 21:00 10/06/22 21:00 Labs: Laboratory Results - last 24 hr 10/06/22 10/06/22 10/06/22 21:00 21:00 21:00 WBC 8.06 RBC 3.48 L Hgb 10.6 L Hct 33.5 L MCV 96 H MCH 30.5 MCHC 31.6 L RDW 14.6 Plt Count 142 MPV 10.8 Immature Gran % 0.4 Neutrophils % 53.5 Lymphocytes % 29.0 Monocytes % 16.5 Eosinophils % 0.5 Basophils % 0.1 Nucleated RBC % 0.0 Absolute Neutrophils 4.31 Absolute Lymphocytes 2.34 Absolute Monocytes 1.33 H Absolute Eosinophils 0.04 Absolute Basophils 0.01 VBG pH VBG pCO2 VBG pO2 VBG HCO3 VBG Total CO2 VBG O2 Saturation VBG Base Excess VBG Lactate 2.0 H Sodium 139 Potassium 5.3 H Chloride 106 Carbon Dioxide 23.8 Anion Gap 9.2 BUN 42 H Creatinine 2.0 H Est GFR (CKD-EPI 2020) 24.94 Glucose 184 H Calcium 8.4 L Total Bilirubin 0.3 AST 59 H ALT 79 H Alkaline Phosphatase 115 Troponin I NT-Pro-B Natriuret Pep Total Protein 5.7 L Albumin 2.8 L Procalcitonin COVID-19 Source SARS-CoV-2 (PCR) Influenza Type A (PCR) Influenza Type B (PCR) RSV (PCR) 10/06/22 10/06/22 10/06/22 21:00 21:00 21:00 WBC RBC Hgb Hct MCV MCH MCHC RDW Plt Count MPV Immature Gran % Neutrophils % Lymphocytes % Monocytes % Eosinophils % Basophils % Nucleated RBC % Absolute Neutrophils Absolute Lymphocytes Absolute Monocytes Absolute Eosinophils Absolute Basophils VBG pH 7.32 VBG pCO2 45 VBG pO2 41 VBG HCO3 21 L VBG Total CO2 45 H VBG O2 Saturation 70 VBG Base Excess -3 L VBG Lactate Sodium Potassium Chloride Carbon Dioxide Anion Gap BUN Creatinine Est GFR (CKD-EPI 2020) Glucose Calcium Total Bilirubin AST ALT Alkaline Phosphatase Troponin I 51 NT-Pro-B Natriuret Pep 1740 H Total Protein Albumin Procalcitonin COVID-19 Source Nasopharynx SARS-CoV-2 (PCR) Negative Influenza Type A (PCR) Negative Influenza Type B (PCR) Negative RSV (PCR) Negative 10/06/22 21:00 WBC RBC Hgb Hct MCV MCH MCHC RDW Plt Count MPV Immature Gran % Neutrophils % Lymphocytes % Monocytes % Eosinophils % Basophils % Nucleated RBC % Absolute Neutrophils Absolute Lymphocytes Absolute Monocytes Absolute Eosinophils Absolute Basophils VBG pH VBG pCO2 VBG pO2 VBG HCO3 VBG Total CO2 VBG O2 Saturation VBG Base Excess VBG Lactate Sodium Potassium Chloride Carbon Dioxide Anion Gap BUN Creatinine Est GFR (CKD-EPI 2020) Glucose Calcium Total Bilirubin AST ALT Alkaline Phosphatase Troponin I NT-Pro-B Natriuret Pep Total Protein Albumin Procalcitonin < 0.1 COVID-19 Source SARS-CoV-2 (PCR) Influenza Type A (PCR) Influenza Type B (PCR) RSV (PCR) Last Vital Signs Temp 36.7 C 10/06/22 20:45 Pulse 96 H 10/06/22 23:40 Resp 20 10/06/22 23:40 BP 100/50 L 10/06/22 23:40 Pulse Ox 91 L 10/06/22 23:40 Time Spent Time spent with Patient: 55-74 minutes Time was spent: preparing to see the patient(eg.review tests), obtaining and/or reviewing separately otained hiistory, ordering medications,tests, procedures, referring, communicating with other health ostomy care nurse, indepentently interpreting results, counseling the patient and care coordination
[2022-10-07] VITALS (43 sets, daily range): BP systolic 72–153; BP diastolic 33–73; PULSE 64–105; RESP 1–31; TEMP 36.6–36.8; O2SAT 84–98
--- NOTE | 2022-10-07 | DI.MRI_ITS ---
Exam(s) MR ANGIO BRAIN WO EXAM: MR ANGIO BRAIN WO CLINICAL HISTORY: acute CVA TECHNIQUE: Performed on 1.5 car unit with [id number] sequence. Field of view of this study is from the skull base up. COMPARISON: MR MR BRAIN WO from 10/07/2022 FINDINGS: On the right side there is absence of flow signal in the internal carotid artery the skull base and r ight cavernous sinus. Also absence of flow in the supraclinoid aspect of the right ICA. The opposit e-left internal carotid arteries patent in the skull base and left cavernous sinus. Left ICA supracl inoid aspect is patent. Left A1 segment is patent and supplies both anterior cerebral arteries via t he anterior communicating artery. Left middle cerebral artery is patent. On the right side there is thinner flow signal seen in the right middle cerebral artery. Intravascul ar flow is demonstrated within the distal MCA vessels in the right sylvian fissure, similar to the op posite side. Posterior circulation: The basilar artery is formed by the dominant left vertebral artery. It is sen ds slightly right of midline with normal luminal diameter. Gives off patent bilateral superior cereb ellar arteries above this level terminates as patent right posterior cerebral artery. The patent lef t posterior cerebral artery is supplied by a patent posterior communicating artery on the left side o f the [id number]. IMPRESSION: 1. Occluded intracranial right internal carotid artery. Patent left intracranial internal carotid ar tarik 2. Patent anterior cerebral arteries with the right SI[place] being supplied via the anterior communicating artery from the left A1 segment.. 3. Patent left middle cerebral artery. Thin flow demonstrated in the right middle cerebral artery. 4. Patent basilar artery (left vertebral artery dominant). Patent posterior cerebral arteries, with the left being supplied via a posterior communicating artery on the left side of the [id number] s. Hospitalist notified. DATA REPOSITORY:
--- NOTE | 2022-10-07 | DI.US_ITS ---
Exam(s) US EXTREMITY VENOUS BI EXAM: US EXTREMITY VENOUS BI CLINICAL HISTORY: elevated D-dimer TECHNIQUE: Grayscale, color, and doppler imaging of the deep venous system of both lower extremities was performed. COMPARISON: US US RENAL from 10/07/2022 FINDINGS: There is no evidence of intraluminal thrombus and there is normal compression and augmentation demons trated within the common femoral veins, femoral veins, and popliteal veins of both lower extremities. In the calves the interrogated veins also exhibit normal compression/ augmentation properties. The greater saphenous veins also appear patent as do the saphenofemoral junctions bilaterally.. IMPRESSION: 1. No ultrasound evidence of DVT in either lower extremity. DATA REPOSITORY:
--- NOTE | 2022-10-07 | DI.MRI_ITS ---
Exam(s) MR BRAIN WO EXAM: MR BRAIN WO CLINICAL HISTORY: ?acute CVA TECHNIQUE: Multiplanar multisequence MRI of the brain was performed. COMPARISON: MR MR BRAIN WO/W from 04/28/[address] HEAD WO from 10/06/2022 FINDINGS: CEREBRAL PARENCHYMA: There is no evidence of intracranial hemorrhage, intra or extra-axial. However, there is significant signal abnormality consistent with nonacute infarct in the right frontal lobe, as seen on recent CT scans but not previously present on MRI scan of 04/28/2021. Therefore this is been area of interval infarct, presently not exhibiting restricted diffusion. There is no significant focal signal abnormality in the cerebellar hemispheres nor within the alesia, m idbrain, and thalami. Main new finding on today's study are multiple foci of restricted diffusion on DWI evident in the pos terior right temporal lobe at subcortical level, nonhemorrhagic. This was not evident on the DWI froylan dy of 04/28/2021. No other foci of restricted diffusion. PITUITARY GLAND: No mass nor parasellar abnormality. No obvious abnormality in the cavernous sinuses. FLOW VOIDS: There is absence of flow void in the right internal carotid artery in the skull base and cavernous sinus. Also absence of flow void in the right middle cerebral artery. Left vertebral miles ry is dominant. Flow void noted in the basilar artery. PARANASAL SINUSES: The visualized paranasal sinuses appear unremarkable. No obvious finding ORBITS: No obvious findings. IMPRESSION: Compared to the prior MRI scan of 04/28/2021 the main new finding are foci of restricted diffusion in the posterior right temporal lobe. Consistent with this acute ischemic event. There is also absenc e of flow void in the right internal carotid artery in the skull base and cavernous sinus as well as absence of flow void in the right middle cerebral artery. This finding is new when compared to 04/28. Also new from 04/28/2021 is evidence of infarct in the right frontal lobe although this has been evid ent on recent CT scans and is not an acute event at this time. There is no evidence of intracranial hemorrhage, intra or extra-axial. See separate MR angio dictation performed today. DATA REPOSITORY:
--- NOTE | 2022-10-07 | DI.US_ITS ---
APPROVED REPORT EXAM: Comprehensive 2D, Doppler, and color-flow Echocardiogram Patient Location: In-Patient Room/Bed: [facility]315 [place]: Sherron Mane RDCS (AE) Indications: CHF, COPD, Smoker Other Information Study Quality: Fair. Technically limited study due to body habitus, inability to position patient exa m done supine bedside. Conclusion Technically difficult study, poor parasternal views. Apical views are adequate The left ventricle is moderately hypertrophied. Cavity is small. EF is 55%. Wall motion is normal Right ventricular size and systolic function appears normal Left atrium is moderately dilated. Right atrial size is normal Aortic valve is calcified without stenosis or regurgitation Severe mitral annular calcification. Mild mitral regurgitation Normal tricuspid valve with mild regurgitation. Estimated right ventricular systolic pressure is 55 mmHg Wall motion Left Ventricle Ventricular cavity is small The left ventricular systolic function is normal. The left ventricular ej ection fraction is within the normal range. Moderate left ventricular hypertrophy Echo findings are c onsistent with a left ventricular outflow tract obstruction. There is normal LV segmental wall motion . There is no ventricular septal defect visualized. LVEF is 55%. Right Ventricle The right ventricle is normal size. Right ventricular systolic function is normal The RVSP is 54.4mmH g. Atria Left atrium is moderately dilated. The right atrium size is normal. The interatrial septum is intact with no evidence for an atrial septal defect. Aortic Valve Aortic valve is calcified. Number of aortic valve leaflets could not be assessed. No hemodynamically significant valvular aortic stenosis. No aortic regurgitation is present. Mitral Valve Severe mitral annular calcification. No evidence of mitral valve stenosis. Mild mitral regurgitation. Tricuspid Valve The tricuspid valve is normal in structure. There is no tricuspid valve stenosis. Mild tricuspid regu rgitation. Pulmonic Valve Pulmonic valve is not well visualized. There is no pulmonic valvular stenosis. There is no pulmonic v alvular regurgitation. Great Vessels The aortic root is normal in size. Ascending aorta is not well visualized. The IVC collapses <50% wit h inspiration. Pericardium There is no pericardial effusion. 2D Dimensions IVSD d PLAX 0.90 cm F: 0.6-1.0 LV Vol A2C d MOD 67.4 mL LVPW d PLAX 0.90 cm F: 0.6 - 1.0 LV Vol A4C d MOD 57.2 mL LVID d PLAX 3.92 cm F: 3.8 - 5.2 LA vol/ BSA A2C s A-L 47.3 mL/m2 LVDs 2.85 cm F: 2.2 - 3.5 LA vol/ BSA A4C s A-L 39.2 mL/m2 Ao Root d 2.44 cm F: 2.7 - 3.3 LA Vol/ BSA Biplane s A-L 43.4 mL/m2 RA Area A4C 10.42 cm2 LA Area A4C s MOD 19.83 cm2 RA Vol/ BSA A4C s A-L 18.2 mL/m2 LA Area A2C s MOD 21.95 cm2 LV EF Teichholz 51.8 % LV EF A4C MOD 54.5 % LVEF (Philippe's) 55.23 % F: 54 - 74 LV EF A2C MOD 54.4 % LV Volume 53.93 mL F: 46 - 106 LV EF Biplane MOD 55.2 % LV Volume Index 37.45 mL/m2 F: 29 - 61 SV 35.15 mL LV Vol Biplane MOD 63.7 mL SV Index 24.42 mL/m2 FS 26.05 % M-Mode TAPSE 2.47 cm (M/F) >1.7 LV Diastology MV E' medial 0.060 (>0.07 m/s) E/A Ratio 0.9 LV E/e MED 24.65 (<14) MV E Vmax 1.48 (0.4-1.3 m/s) MV E' lateral 0.062 (>0.1 m/s) MV A Vmax 1.65 (0.4-1.3 m/s) LV E/e LAT 23.65 (<14) MV E/A Ratio 0.87 MV E/E' medial 24.66 MV E/E' lateral 23.69 Aortic Valve LVOT Area 2.32 cm2 AoV Area Vmax 1.47 cm2 LVOT Vmax 1.57 m/s AoV Area/ BSA (Vmax) 1.02 cm2/m2 LVOT Mean Eamon. 1.03 m/s REJI Mean Eamon. 1.30 cm2 LVOT Peak Grad 9.8 mmHg REJI Mean Eamon. Index 0.90 cm2/m2 LVOT Mean Grad 5.0 mmHg LVOT VTI 0.340 m LVOT Diam s 1.70 cm AoV Vmax 2.46 m/s Velocity Ratio 0.64 AoV Mean Eamon. 1.84 m/s AoV Peak Grad 24.2 mmHg LVOT SV 78.75 mL AoV Mean Grad 15.0 mmHg AoV VTI 0.516 m AoV Area VTI 1.53 cm2 AoV Area/ BSA (VTI) 1.06 cm/m2 Mitral Valve MV DT 301 (160-240 msec) MV PHT 87 msec MV Area PHT 2.52 cm2 Pulmonary Valve PV Vmax 1.82 (0.5-1.5 m/s) RVOT Peak Gr. 1.35 mmHg PV Peak Grad 13.2 mmHg RVOT Mean Gr. 0.75 mmHg PV Mean Grad 9.4 mmHg RVOT VTI 0.119 m PV VTI 0.409 m RVOT Vmax 0.58 m/s Tricuspid Valve TR Peak Grad 46.4 mmHg TR Vmax 3.41 m/s RA Pressure 8.00 mmHg RVSP (TR) 54.4 mmHg
--- NOTE | 2022-10-07 | DI.US_ITS ---
Exam(s) US RENAL EXAM: US RENAL CLINICAL HISTORY: JANNA TECHNIQUE: Ultrasound of both kidneys performed using standard protocol. COMPARISON: US US CAROTID from 10/07/2022 FINDINGS: RIGHT KIDNEY: Measures 10 cm in length. No cysts evident. Normal cortical thickness and corticomedullary differenti ation .No solid masses No intrarenal calculi nor hydronephrosis. LEFT KIDNEY: Measures 9.9 cm in length. No cysts evident. Normal cortical thickness and corticomedullary differen tiaion. No solids masses. No intrarenal calculi nor hydonephrosis. URINARY BLADDER: Prevoid volume is 411 cc Postvoid volume is patient not able to void No evidence of bladder mass nor diverticuli. Ureterovesical jets: Both identified and appear symmetrical IMPRESSION: 1. No significant focal ultrasound findings in the kidneys. 2. Patient not able to empty the urinary bladder DATA REPOSITORY:
--- NOTE | 2022-10-07 | DI.US_ITS ---
Exam(s) US CAROTID EXAM: US CAROTID CLINICAL HISTORY: h/o carotid stenosis. TECHNIQUE: Ultrasound carotids performed using grayscale, color-flow, and spectral Doppler imaging. COMPARISON: CT angiography study of 02/01/2022. FINDINGS: Anterior circulation: The right common and internal carotid arteries are occluded. This is consistent with findings on the prior CT a study of 02/22. Mildly elevated velocities noted in the proximal left ICA peak systolic velocity 146 cm/sec. Consist ent with moderate stenosis of 50-69 percent almost at the level the carotid bulb. Posterior circulation: Antegrade flow demonstrated in both vertebral arteries. Please note that the left vertebral artery is dominant as per present MRA study and prior CT a study of February 2022. The right vertebral artery is a thinner vessel and terminates at the skull base at the level the right po sterior inferior cerebellar artery. Measurements: R Bulb: 0 cm/s PS / 0 cm/s ED R CCA: 0 cm/s PS / 0 cm/s ED R ECA: 64.7 cm/s PS / 10.2 cm/s ED R ICA Prox: 14.1 cm/s PS / 0 cm/s ED R ICA Mid: 5.6cm/s PS / 1.3cm/s ED R ICA Distal: 7cm/s PS /0cm/s ED R Vert: 75 cm/s PS / 16.8 cm/s ED R SVR: 0 R DVR: 0 L Bulb: 137.5 cm/s PS / 21.1 cm/s ED L CCA: 89.2 cm/s PS / 17.1 cm/s ED L ECA: 163.5 cm/s PS / 13.9 cm/s ED L ICA Prox: 145.9 cm/s PS / 17.4 cm/s ED L ICA Mid: 100.3cm/s PS / 19.1cm/s ED L ICA Distal: 93.2cm/s PS / 18.9cm/s ED L Vert: 77.6 cm/s PS / 19.9 cm/s ED L SVR: 1.6 L DVR: 1 IMPRESSION: 1. Occluded right common and internal carotid arteries. 2. Moderate stenosis at the level of the left carotid bulb-proximal ICA. 3. Left vertebral artery is dominant. 4. See separate MRA dictation from today. Criteria for Carotid Stenosis: Normal: ICA PSV <125 cm/s no plaque or intimal thickening is visible. <50% stenosis: ICA PSV <125 cm/s and plaque or intimal thickening is visible. 50-69% stenosis: ICA PSV is 125-250 cm/s and plaque is visible. >70% stenosis to near occlusion: ICA PSV >250 cm/s with visible plaque and luminal narrowing. DATA REPOSITORY:
[2022-10-07 00:50] LABS: Troponin I 74 ng/L (<or=60)
[2022-10-07 01:03] LABS: D-Dimer 1552 ng/mlFEU (<500)
[2022-10-07 01:20] LABS: Creatine Kinase 173 U/L (26-192)
[2022-10-07] MEDS: Aspirin E.C. 325 MG TABEC PO (01:47)
[2022-10-07 02:13] LABS: Lab Add On Test DONE
[2022-10-07] MEDS: Heparin 5,000 UNITS/ML VIAL 5000 UNITS SC ×3 (05:31→22:22)
[2022-10-07] MEDS: PIPERACILLIN/TAZO 3.375 GM in Normal Saline 50 ML IVPB ×3 (05:32→21:38)
[2022-10-07 06:44] LABS: Abs Immature Grans 0.03 10^3/uL (0.0-0.06); Absolute Basophil Count 0.01 10^3/uL (0.0-0.2); Absolute Lymphocyte Count 0.81 10^3/uL (1.2-3.4); Absolute Monocyte Count 0.09 10^3/uL (0.1-0.8); Absolute Neutrophil Count 5.13 10^3/uL (1.2-6.7); Basophils % 0.2; HCT 32.3 % (36.0-46.0); HGB 10.6 g/dL (11.2-15.7); Immature Grans % 0.5; Lymphocytes % 13.3; MCH 31.2 pg (27.0-33.0); MCHC 32.8 % (32.0-36.0); MCV 95 fL (80-95); MPV 10.8 fL (8.0-11.0); Monocytes % 1.5; Neutrophils % 84.5; Platelet Count 143 10^3/uL (130-400); RDW 14.6 % (11.7-14.6); RDW-SD 51.1 fL; WBC 6.07 10^3/uL (4.4-10.8)
[2022-10-07 06:46] LABS: Bilirubin Negative (Negative); Blood Negative (Negative); Clarity Clear (Clear); Glucose Negative (Negative); Ketones Negative (Negative); Leukocyte Esterase Negative (Negative); Nitrite Negative (Negative); Urobilinogen 0.2 mg/dL (Up to 0.2); pH 5.5 (5-8)
[2022-10-07 07:02] LABS: Anion Gap 11.3 mmol/L (3-11); BUN 41 mg/dL (7-18); CO2 24.7 mmol/L (21.0-32.0); CREATININE 1.8 mg/dL (0.55-1.02); Calcium 8.6 mg/dL (8.5-10.1); Chloride 105 mmol/L (98-107); Estimated GFR 28.31 (mL/min/1.73m2); Glucose 214 mg/dL (74-106); Magnesium 1.7 mg/dL (1.8-2.4); Sodium 141 mmol/L (136-145)
[2022-10-07 07:16] LABS: Creatinine,Urine 32.65 mg/dL
[2022-10-07] MEDS: Pantoprazole 40 MG TABCR PO (08:08)
[2022-10-07] MEDS: DOXYCYCLINE 100 MG in Normal Saline 100 ML IVPB ×2 (08:59→20:10)
[2022-10-07] MEDS: Normal Saline Flush 10 ML SYR IVP ×3 (09:09→17:54)
--- NOTE | 2022-10-07 09:27 | INITIAL_ITS ---
- If Service Date Differs Date of service: 10/07/22 Time of Service: 09:27 Care Management Initial Assess REASON FOR HOSPITALIZATION:: Acute exacerbation of COPD, Acute CHF, Hypotension PAST MEDICAL HISTORY/PAST SURGICAL HISTORY:: All Active Problems. Discharge planning issues (Acute). DVT prophylaxis (Acute). Chronic obstructive lung disease (Acute). PFT'S 2009 FEV 1.15=59%. continues to smoke. Constipation (Chronic 11/14/17). Essential hypertension (Acute 03/30/13). Hyperlipidemia (Chronic). Lumbago (Chronic 05/10/13). Peripheral vascular disease (Acute). Jul 2014 [facility] – [place] aorto bifem bypass. LEFT ILIAC STENT [facility] [place] 03/2010. Polyp of colon (Acute). tubular adenoma. Shoulder arthralgia (Chronic). Seizures (Acute). Carotid stenosis, left (Acute). 50-69% stenosis 04/2022; complete obstruction right internal carotid. Anxiety about health (Acute). Grief reaction (Chronic). Spouse 08/13/21 passed. Hand pain, left (Acute). CVA (cerebral vascular accident) (Chronic). Neuro est. between 04/2020-11/2021. Counseling regarding advanced directives and goals of care (Acute). Dilated bile duct (Acute ~02/2022). s/p ERCP [facility], 10mm dilation, no masses. Due repeat MRI in 10/2022. Left rotator cuff tear arthropathy (Chronic). 40 mg Depo-Medrol injection: 04/13/2022. Nail dystrophy (Acute). Left upper quadrant abdominal pain (Acute). Seborrheic dermatitis of scalp (Acute). Productive cough (Acute). History of tobacco abuse (Acute). Medical History. Disorder of ear, left. Diverticulitis of colon. H/O SIGMOID COLECTOMY. Perichondritis. Smoker (10/19/16). Surgical History. Extraction of cataract. B/L 04/2013. Ligation of fallopian tube. Rotator Cuff Repair. RIGHT. S/P partial colectomy. Trigger Finger release. WRIST/THUMB SURGERY. LEFT THUMB. LEFT WRIST. RIGHT THUMB PREVIOUS FUNCTIONAL STATUS/SOCIAL/FAMILY SUPPORTS:: Kathleen lives in [facility], [facility]. She has a daughter, who lives in [place], and a son. She has been independent at baseline with ADL's, although she has recently been declining. ADVANCE DIRECTIVES:: On file. Niranjan, her spouse is listed as agent, who is . Her daughter, Alexia listed as alternate agent. Has patient been provided with info about the portal/API?: Yes Did the patient sign up for the portal?: No CODE STATUS:: DNR/DNI INSURANCE COVERAGE / FINANCIAL ISSUES:: MCR/ [employer]/ Financial Assist 100% CURRENT HOME/COMMUNITY SERVICES/EQUIPMENT:: No current services. PRIMARY CARE PHYSICIAN:: Samir Santa POTENTIAL DISCHARGE NEEDS:: Evaluations for further needs, potential short term rehab placement, follow up appointments PATIENT/FAMILY EDUCATION NEEDS:: Review discharge instructions and limitations, discussion of self care needs including ask me three. ANTICIPATED BARRIERS TO DISCHARGE:: None identified. TRANSPORTATION:: To be determined by disposition, likely RCT or facility w/c van. PLAN:: Anticipate Kathleen will return home with new services vs SNF for short term rehab. PT is currently recommending SNF. She will transport via RCT vs facility w/c van. She will follow up with her PCP and discharge plan of care. CM will continue to follow.
[2022-10-07] MEDS: Rosuvastatin 10 MG TAB 40 MG PO (09:44)
[2022-10-07] MEDS: tiZANidine 4 MG TABLET PO ×2 (09:45→20:11)
[2022-10-07] MEDS: predniSONE 20 MG TAB 40 MG PO (09:45)
[2022-10-07] MEDS: Sertraline 100 MG TAB PO (09:45)
[2022-10-07] MEDS: guaiFENesin 600 MG TABCR PO ×2 (09:45→20:11)
[2022-10-07] MEDS: Aspirin E.C. 81 MG TABEC PO (09:45)
[2022-10-07] MEDS: Furosemide 20 MG/2 ML VIAL IVP (09:46)
[2022-10-07] MEDS: Multivitamin w/Minerals TAB 1 TAB PO (09:46)
[2022-10-07] MEDS: Fluticasone NASAL SPRAY 16 GM BTL NS (09:47)
--- NOTE | 2022-10-07 11:02 | PGE_ITS ---
Date of Service Date of service: 10/07/22 Time of Service: 11:02 Assessment and Plan Assessment and plan (1) Unresponsive episode: Status: Acute Assessment and plan: patient was not unresponsive when she arrived to the ED. She did have transient decreased level of consciousness at home associated w/ hypotension and what sounded to be TIA/CVC in which she had garbled speech and weakness. No witnessed seizure activity. After arrival to the ED she did have further hypotension but this was in the setting of iv lasix given in response to incorrect interpretation that she was in acute CHF d/t 1.5 liters given to her by EMS for her hypotension at home. She has normal LV systolic funciton but has LVH and very well could have HFPEF. The fluid resuscitation may have been a bit too much and she could have developed some volume overload. She is no longer hypotensive and she seems euvolemic at present . In setting of hypotension, with h/o R MCA CVA and ?seizures in the past and H/o B carotid stenosis. CT head negative. Suspect that this was symptomatic hypotension, but the patient does have L facial weakness which I do not see reported on her last admission, so an acute CVA is also possible. Will give asa. Check lipid panel. Obtain MRI/MRA brain. Will consult neurology to see if further workup is recommended. Will monitor neuro checks. Check echo, US carotid. C/s PT, OT, speech. Above was ordered by admitting community health representative: patient has gone down for her MRI of her brain. carotid US has been done. ECHO has been done and read as follows: Conclusion Technically difficult study, poor parasternal views.? Apical views are adequate The left ventricle is moderately hypertrophied.? Cavity is small.? EF is 55%.? Wall motion is normal Right ventricular size and systolic function appears normal Left atrium is moderately dilated.? Right atrial size is normal Aortic valve is calcified without stenosis or regurgitation Severe mitral annular calcification.? Mild mitral regurgitation Normal tricuspid valve with mild regurgitation.? Estimated right ventricular systolic pressure is 55 mmH (2) Hypotension: Status: Acute Assessment and plan: no longer hypotensive. Patient is mildly anemic but Hb has been relatively stable at around 10.5 to 11 gm over past month. May be medication related as she was on lisinopril w/ HCTZ and presented w/ azotemia w/ BUN 42 and creatinine of 2.0 (baseline is 25 to 30 and 1.5 respectively). I think that she was overdiuresed at home and was on an ACEI as well. I think that volume resuscitation was appropriate initially but that she did not need the diuretics given on admission. At present will continue to withold her lisinopril/HCTZ but she does not require iv fluids. She has been on prednisone recently and has been started on higher dose prednisone for her COPD exacerbation. Adrenal insufficiency should be kept in mind if she has refractory hypotension/or hypoglycemia or hyponatremia but she has had none of those. (3) COPD exacerbation: Status: Acute Assessment and plan: attempt sputum induction, check mycoplasma PCR, check urine legionella antigen, strep antigen, MRSA. Patient was just treated 09/23-09/27/22 for acute COPD exacerbation w/ bronchitis and was on nebulizers, steroids and ceftriaxone and doxycycline. She was dc home on prednisone 40 mg daily x 5 days and 4 more days of doxycycline. Since that time she has been to urgent care and subsequently to PCP office yesterday. She was put back on antibiotics yesterday by Dr. Miller including cefuroxime however per her neighbor Juliana, they never picked up the Rx yesterday. Patient was put on Zosyn last night but doxycycline was not added. I have added the doxycyline. Will continue the Zosyn pending her cultures. She states she has been coughing up a lot of yellowish mucous, more than normal. No fever/rigors. CXR did not show any infiltrates. cont. aerosolized bronchodilators, oxygen, prednisone and Zosyn and doxycycline. (4) Acute bronchitis: Status: Acute Assessment and plan: As above Tx with nebs, steroids, abx, antitussives. Encourage pulmonary toilet. (5) JANNA (acute kidney injury): Status: Acute Assessment and plan: Obtain FeUrea. Obtain US renal. The patient refuses a vee catheter. Obtain UA. Check CPK. Try to maintain adequate MAP. Recheck in am. (6) DVT prophylaxis: Status: Acute Assessment and plan: SC heparin (7) Discharge planning issues: Status: Acute Assessment and plan: DNR/DNI C/s palliative care Admit to ICU. Total Critical Care Time 75 minutes Subjective Subjective Interval history since last seen: Patient is less dyspneic this morning. No CP. Her daughter thinks that her mother's left facial droop is more prominent than in the past. Per my discussion with her sister's, Alexia and Leticia, the patient was talking on the phone w/ her son, Haile, who was in [place] when he noted that she was not talking right when he called Alexia. Alexia called the patient and also noted her to be slurring her words. She then called her neighbor, Juliana who came and found the patient sitting at her table having finished dinner and was having dessert. Per Juliana she was just sitting at the table, staring into space and her words were slurred and unintelligible. She also seemed to have trouble balancing in the chair. 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 Per Juliana, she called EMS and by the time they arrived she was talking better and able to answer their questions incluidng answering as to where she was located. Exam Narrative Exam Narrative: Elderly white female lying in bed in no acute distress. She is alert and is in place circumstance. She is talking w/ her daughters, and her neighbor who walked in during my exam HEENT; right pupil is widely dilated and unresponsive to light (per her daughters it has been this way for the past 1 1/2 yrs since her stroke), vision in right eye is limited to just outline of figures; her gross vision in her left eye is intact; she is able to see details of my face, full EOMI; left eyelid does appear to be droopy but moves well w/ looking up or around. facial asymmetry w/ left corner of her mouth w/ droop but speech is clear and coherent Lungs: bilateral basilar rales; no rhonchi or wheezing Heart: RRR, harsh systolic murmur over apex c/w MR Abdomen: midline scar from prior laparotomy and vascular grafts for PAD; she has reducible abdominal wall hernia at the umbilicus Legs/arms: left arm and hand w/ paraparesis, very weak hand grasp, unable to hold left arm up against gravity; left leg able to lift and hold up against gravity but not able to resist me and weak dorsiflexion and plantar flexion; right side lower and upper extremities are normal Objective Last Vital Signs Temp 36.7 C 04/06/23 04:00 Pulse 87 10/07/22 10:00 Resp 14 10/07/22 09:01 BP 152/73 H 10/07/22 10:00 Pulse Ox 92 10/07/22 10:01 Laboratory Results - last 24 hr 10/06/22 10/06/22 10/06/22 21:00 21:00 21:00 WBC 8.06 RBC 3.48 L Hgb 10.6 L Hct 33.5 L MCV 96 H MCH 30.5 MCHC 31.6 L RDW 14.6 Plt Count 142 MPV 10.8 Immature Gran % 0.4 Neutrophils % 53.5 Lymphocytes % 29.0 Monocytes % 16.5 Eosinophils % 0.5 Basophils % 0.1 Nucleated RBC % 0.0 Absolute Neutrophils 4.31 Absolute Lymphocytes 2.34 Absolute Monocytes 1.33 H Absolute Eosinophils 0.04 Absolute Basophils 0.01 D-Dimer VBG pH VBG pCO2 VBG pO2 VBG HCO3 VBG Total CO2 VBG O2 Saturation VBG Base Excess VBG Lactate 2.0 H Sodium 139 Potassium 5.3 H Chloride 106 Carbon Dioxide 23.8 Anion Gap 9.2 BUN 42 H Creatinine 2.0 H Est GFR (CKD-EPI 2020) 24.94 Glucose 184 H Calcium 8.4 L Magnesium Total Bilirubin 0.3 AST 59 H ALT 79 H Alkaline Phosphatase 115 Creatine Kinase Troponin I NT-Pro-B Natriuret Pep Total Protein 5.7 L Albumin 2.8 L Procalcitonin Urine Color Urine Clarity Urine pH Ur Specific [place] Urine Protein Urine Ketones Urine Blood Urine Nitrite Urine Bilirubin Urine Urobilinogen Ur Leukocyte Esterase Ur Random Creatinine Urine Glucose COVID-19 Source SARS-CoV-2 (PCR) Influenza Type A (PCR) Influenza Type B (PCR) RSV (PCR) Add-On Test Request 10/06/22 10/06/22 10/06/22 21:00 21:00 21:00 WBC RBC Hgb Hct MCV MCH MCHC RDW Plt Count MPV Immature Gran % Neutrophils % Lymphocytes % Monocytes % Eosinophils % Basophils % Nucleated RBC % Absolute Neutrophils Absolute Lymphocytes Absolute Monocytes Absolute Eosinophils Absolute Basophils D-Dimer VBG pH 7.32 VBG pCO2 45 VBG pO2 41 VBG HCO3 21 L VBG Total CO2 45 H VBG O2 Saturation 70 VBG Base Excess -3 L VBG Lactate Sodium Potassium Chloride Carbon Dioxide Anion Gap BUN Creatinine Est GFR (CKD-EPI 2020) Glucose Calcium Magnesium Total Bilirubin AST ALT Alkaline Phosphatase Creatine Kinase Troponin I 51 NT-Pro-B Natriuret Pep 1740 H Total Protein Albumin Procalcitonin Urine Color Urine Clarity Urine pH Ur Specific [place] Urine Protein Urine Ketones Urine Blood Urine Nitrite Urine Bilirubin Urine Urobilinogen Ur Leukocyte Esterase Ur Random Creatinine Urine Glucose COVID-19 Source Nasopharynx SARS-CoV-2 (PCR) Negative Influenza Type A (PCR) Negative Influenza Type B (PCR) Negative RSV (PCR) Negative Add-On Test Request 10/06/22 10/07/22 10/07/22 21:00 00:10 00:10 WBC RBC Hgb Hct MCV MCH MCHC RDW Plt Count MPV Immature Gran % Neutrophils % Lymphocytes % Monocytes % Eosinophils % Basophils % Nucleated RBC % Absolute Neutrophils Absolute Lymphocytes Absolute Monocytes Absolute Eosinophils Absolute Basophils D-Dimer 1552 H VBG pH VBG pCO2 VBG pO2 VBG HCO3 VBG Total CO2 VBG O2 Saturation VBG Base Excess VBG Lactate Sodium Potassium Chloride Carbon Dioxide Anion Gap BUN Creatinine Est GFR (CKD-EPI 2020) Glucose Calcium Magnesium Total Bilirubin AST ALT Alkaline Phosphatase Creatine Kinase Troponin I 74 H* NT-Pro-B Natriuret Pep Total Protein Albumin Procalcitonin < 0.1 Urine Color Urine Clarity Urine pH Ur Specific [place] Urine Protein Urine Ketones Urine Blood Urine Nitrite Urine Bilirubin Urine Urobilinogen Ur Leukocyte Esterase Ur Random Creatinine Urine Glucose COVID-19 Source SARS-CoV-2 (PCR) Influenza Type A (PCR) Influenza Type B (PCR) RSV (PCR) Add-On Test Request 10/07/22 10/07/22 10/07/22 00:10 00:10 05:26 WBC RBC Hgb Hct MCV MCH MCHC RDW Plt Count MPV Immature Gran % Neutrophils % Lymphocytes % Monocytes % Eosinophils % Basophils % Nucleated RBC % Absolute Neutrophils Absolute Lymphocytes Absolute Monocytes Absolute Eosinophils Absolute Basophils D-Dimer VBG pH VBG pCO2 VBG pO2 VBG HCO3 VBG Total CO2 VBG O2 Saturation VBG Base Excess VBG Lactate Sodium 141 Potassium 3.0 L D Chloride 105 Carbon Dioxide 24.7 Anion Gap 11.3 H BUN 41 H Creatinine 1.8 H Est GFR (CKD-EPI 2020) 28.31 Glucose 214 H Calcium 8.6 Magnesium 1.7 L Total Bilirubin AST ALT Alkaline Phosphatase Creatine Kinase 173 Troponin I NT-Pro-B Natriuret Pep Total Protein Albumin Procalcitonin Urine Color Urine Clarity Urine pH Ur Specific [place] Urine Protein Urine Ketones Urine Blood Urine Nitrite Urine Bilirubin Urine Urobilinogen Ur Leukocyte Esterase Ur Random Creatinine Urine Glucose COVID-19 Source SARS-CoV-2 (PCR) Influenza Type A (PCR) Influenza Type B (PCR) RSV (PCR) Add-On Test Request DONE 10/07/22 10/07/22 10/07/22 05:26 05:40 05:40 WBC 6.07 RBC 3.40 L Hgb 10.6 L Hct 32.3 L MCV 95 MCH 31.2 MCHC 32.8 RDW 14.6 Plt Count 143 MPV 10.8 Immature Gran % 0.5 Neutrophils % 84.5 Lymphocytes % 13.3 Monocytes % 1.5 Eosinophils % 0.0 Basophils % 0.2 Nucleated RBC % 0.0 Absolute Neutrophils 5.13 Absolute Lymphocytes 0.81 L Absolute Monocytes 0.09 L Absolute Eosinophils 0.00 Absolute Basophils 0.01 D-Dimer VBG pH VBG pCO2 VBG pO2 VBG HCO3 VBG Total CO2 VBG O2 Saturation VBG Base Excess VBG Lactate Sodium Potassium Chloride Carbon Dioxide Anion Gap BUN Creatinine Est GFR (CKD-EPI 2020) Glucose Calcium Magnesium Total Bilirubin AST ALT Alkaline Phosphatase Creatine Kinase Troponin I NT-Pro-B Natriuret Pep Total Protein Albumin Procalcitonin Urine Color Yellow Urine Clarity Clear Urine pH 5.5 Ur Specific [place] 1.020 Urine Protein Negative Urine Ketones Negative Urine Blood Negative Urine Nitrite Negative Urine Bilirubin Negative Urine Urobilinogen 0.2 Ur Leukocyte Esterase Negative Ur Random Creatinine 32.65 Urine Glucose Negative COVID-19 Source SARS-CoV-2 (PCR) Influenza Type A (PCR) Influenza Type B (PCR) RSV (PCR) Add-On Test Request Reviewed Pertinent PMH: Yes Objective Narrative Objective Narrative: Echocardiogram: Conclusion Technically difficult study, poor parasternal views.? Apical views are adequate The left ventricle is moderately hypertrophied.? Cavity is small.? EF is 55%.? Wall motion is normal Right ventricular size and systolic function appears normal Left atrium is moderately dilated.? Right atrial size is normal Aortic valve is calcified without stenosis or regurgitation Severe mitral annular calcification.? Mild mitral regurgitation Normal tricuspid valve with mild regurgitation.? Estimated right ventricular systolic pressure is 55 mmHg Time Spent with Patient Time Spent with Patient: 35-49 minutes (45 minutes) Time was spent: preparing to see the patient(eg.review tests), obtaining and/or reviewing separately otained hiistory, ordering medications,tests, procedures, referring, communicating with other health foster care social worker, indepentently interpreting results, counseling the patient and care coordination
[2022-10-07] MEDS: Levalbuterol 1.25 MG/3 ML UPD VIAL UPD (15:14)
[2022-10-07] MEDS: Ipratropium 0.5 MG/2.5 ML UPD VIAL UPD ×2 (15:18→20:10)
[2022-10-07] MEDS: MAGNESIUM SULFATE 2 GM/50 ML BAG IVPB (15:24)
[2022-10-07] MEDS: Clopidogrel 300 MG TAB 600 MG PO (15:25)
[2022-10-07] MEDS: Potassium Chloride 10 MEQ CAPCR 40 MEQ PO (15:29)
[2022-10-07] MEDS: POTASSIUM CHLORIDE 10 MEQ/100 ML BAG 100 MEQ IVPB ×4 (16:39→20:27)
--- NOTE | 2022-10-07 17:07 | W.NEUROCONSU ---
Date of service: 10/07/22 Time of Service: 17:07 Assessment and Plan Assessment and plan (1) Hypotension: Status: Acute (2) Carotid stenosis, left: Status: Acute (3) CVA (cerebral vascular accident): Status: Chronic (4) Right carotid artery occlusion: Status: Acute (5) Occlusion of right vertebral artery: Status: Acute (6) Left hemiparesis: Status: Acute Assessment and plan: Ms. Jaffe has had an acute right hemisphere stroke manifested by acute on chronic left hemiparesis and dysarthria. Etiology is likely secondary to hypotension in the setting of known R carotid artery occlusion; however, thrombii from the top of the stump remains in the differential as well. Agree with getting updated lipid panel and A1c to reduce vascular risk factors. I would recommend DAPT x 90 days, after which she should be switched to clopidogrel 75mg daily only. I recommend increasing her statin or switching to higher intensity statin/high dose based on prior LDL. Hypotension should be absolutely avoided given R carotid and vertebral occlusions. She has a moderate L internal carotid stenosis. This will need to be monitored outpatient. Agree with PT/OT/ST. She is starting to get contractures in her left hand. I will talk to OT about this - bracing? She otherwise follows with neurology in [place] She declines follow-up with me at this time and would like to f/up with her outpatient neurologist for further management. I will reach out to speak to her outpatient neurologist and relay findings/recommendations. . History of Present Illness History of Present Illness Chief Complaint: stroke Narrative: Handedness: right. HPI: Ms. Jaffe is a 81 year-old with hypertension, hyperlipidemia, stroke, R carotid and vertebral artery occlusions, peripheral vascular disease, L arm tremor, R eye blindness s/p R CRVO, R CN4 palsy, COPD, and chronic kidney disease. Ms. Jaffe was admitted to [facility] yesterday 10/06/22 with 2 days of increasing SOB. She was on a phone call with out of town family who noted she was quite difficult to understand - slurred speech. Found by a neighbor to be altered, staring and slurred speech with family noting acute on chronic left hemiparesis. EMS was called and she was reportedly hypotensive 70/30s for which she was treated with IVF. This helped her BP but then worsened her breathing. She was placed on Bipap upon arrival to the ER. She is currently being treated for COPD exacerbation/acute bronchitis. Her son and daughter are at bedside today. They note she has made significant improvement today appearing near back to baseline; though noting she is a bit debilitated following hospital admission 09/23-09/27/22 for COPD exacerbation. She denies any dysphagia at this time. She has baseline L arm >>> leg weakness following a right frontal stroke that occurred sometime between Apr 2021 and November 2021 based on imaging. Though likely occurred in November 2021 as she had presented at that time to the [facility] ER with 1 week of falls. Declined hospital admission. She was on aspirin + statin at that time. A carotid u/s in Apr 2021 showed a patent R carotid artery as well....No further arterial imaging here until Feb 2022 at which time R carotid and vertebral arteries noted to be occluded. She is currently on ASA + statin (rosuva 40mg) at home. She was additionally loaded with clopidgrel 300mg x1 and now on clopidogrel 75mg daily. Work-up: -MRI brain w/wo (10/07/22): acute scattered punctate ischemic infarcts in the R temporal and parietal lobes; and a single punctate focus in the right frontal lobe. Old large right frontal stroke. I reviewed these images personally and this is my personal interpretation. -MRA head w/o (10/07/22): Occluded R ICA and R vertebral arteries. I reviewed these images personally and this is my personal interpretation. -CUS (10/07/22): Occluded R common and internal carotid arteries. -TTE (10/07/22): EF 55% with no wall motion abnormalities. Moderate LVH. LA moderately dilated. -LDL (02/01/22): 131 -updated LDL and A1c pending Review of Systems All systems reviewed & are unremarkable except as noted in HPI and below PFSH All Active Problems Left hemiparesis (Acute) 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 occlusion (Acute) Hypotension (Acute) JANNA (acute kidney injury) (Acute) Discharge planning issues (Acute) DVT prophylaxis (Acute) Unresponsive episode (Acute) Acute bronchitis (Acute) Hypoxia (Acute) Acute CHF (Acute) COPD exacerbation (Acute) Chronic obstructive lung disease (Chronic) PFT'S 2009 FEV 1.15=59% continues to smoke Constipation (Chronic 11/14/17) Essential hypertension (Chronic 03/30/13) Lumbago (Chronic 05/10/13) Peripheral vascular disease (Acute) Jul 2014 [facility] aorto bifem bypass LEFT ILIAC STENT [facility] 03/2010 Polyp of colon (Acute) tubular adenoma Shoulder arthralgia (Chronic) Carotid stenosis, left (Acute) 50-69% stenosis 04/2022; complete obstruction right internal carotid. Anxiety about health (Acute) Grief reaction (Chronic) Spouse 08/13/21 passed Hand pain, left (Acute) CVA (cerebral vascular accident) (Chronic) Neuro est. between 04/2020-11/2021 Counseling regarding advanced directives and goals of care (Acute) Dilated bile duct (Acute ~02/2022) s/p ERCP [facility], 10mm dilation, no masses. Due repeat MRI in 10/2022. Left rotator cuff tear arthropathy (Chronic) 40 mg Depo-Medrol injection: 04/13/2022 Nail dystrophy (Acute) Left upper quadrant abdominal pain (Acute) Seborrheic dermatitis of scalp (Acute) Productive cough (Acute) History of tobacco abuse (Acute) Medical History Disorder of ear, left Diverticulitis of colon H/O SIGMOID COLECTOMY Perichondritis Smoker (10/19/16) Surgical History Extraction of cataract B/L 04/2013 Ligation of fallopian tube Rotator Cuff Repair RIGHT S/P partial colectomy Trigger Finger release WRIST/THUMB SURGERY LEFT THUMB LEFT WRIST RIGHT THUMB Family History Mother Diabetes Essential hypertension Stroke Father , 55 Heart disease Stroke Brother , 71 Complications from surgery No problems noted. Son No problems noted. Son No problems noted. Daughter No problems noted. Daughter No problems noted. Social History Smoking/Tobacco Use Status: Current every day Tobacco Type: cigarettes Smoking packs per day: 0.5 Smoking cigarettes per day: 10.0 Years smoked: 63 Smoking pack-years: 31.50 Tobacco: How many years used: 63 Quit status: considering quitting Second Hand Exposure: Yes Smoking risk assessment performed?: Yes Alcohol Intake: never Drug use: Rarely Counseling given: No Counseling provided: none Caregiver/Support person: No Household members: none Housing: house Number of Children: 4 Communication Needs: Hard of Hearing Do you need help understanding health information?: Rarely Pets and animals: Yes Pets and animals: dog(s) Sexually active: No Do you think of yourself as: straight/heterosexual Current gender identity: female What is your relationship status?: How often do you talk on the phone with friends or family?: three or more times per week Do you belong to any clubs or organized social groups?: no Panel score (0-1 are the most socially isolated patients): 1 What type of physical activity do you participate in: none Darlene/Taoist: No preference Special darlene needs: No Seatbelt use: always Helmet use: No Drive intox or ride w/intox local truck driver: No Do you feel safe at home: Yes Do you feel safe in your relationship?: Yes Visit Medication and Allergies Active Medications Generic Name Dose Route Start Last Admin Trade Name Freq PRN Reason Stop Dose Admin Acetaminophen 0 mg 10/06/22 23:37 Acetaminophen 325 Mg Tab PO Q4H PRN PRN Al Hydrox/Mg Hydrox/Simethicone 30 ml 10/06/22 23:37 Mylanta Suspension 30 Ml Cup PO Q2H PRN PRN Aspirin 81 mg 10/07/22 08:30 10/07/22 09:45 Aspirin E.C. 81 Mg Tabec PO 81 mg DAILY CAR Administration Clopidogrel Bisulfate 75 mg 10/08/22 08:30 Clopidogrel 75 Mg Tab PO DAILY CAR Device 1 each 10/06/22 21:00 Inhaler, Assist Device DIRECTED CAR Dimethicone/Zinc Oxide 0 gm 10/06/22 23:37 Sophie Protect Cream 142 Gm Tube TP PRN PRN Docusate Sodium 100 mg 10/06/22 23:37 Docusate Sodium 100 Mg Cap PO TID PRN PRN Fluticasone Propionate 0 gm 10/07/22 08:30 10/07/22 09:47 Fluticasone Nasal [place] 16 Gm Btl NS 2 spray DAILY CAR Administration Guaifenesin 600 mg 10/07/22 08:30 10/07/22 09:45 Guaifenesin 600 Mg Tabcr PO 600 mg BID CAR Administration Heparin Sodium (Porcine) 5,000 units 10/07/22 06:00 10/07/22 15:25 Heparin 5,000 Units/Ml Vial SC 5,000 units Q8H CAR Administration Sodium Chloride 500 mls @ 0 mls/hr 10/06/22 23:37 Saline 500ml Bag IV PRN PRN As Directed Doxycycline Hyclate 100 mg/ 100 mls @ 100 mls/hr 10/07/22 08:00 10/07/22 14:37 Sodium Chloride IVPB Infused Q12H CAR Infusion Potassium Chloride 10 meq in 100 mls @ 100 mls/hr 10/07/22 15:00 10/07/22 16:39 IVPB 10/07/22 18:59 100 mls/hr Q1H CAR Administration Piperacillin Sod/Tazobactam 50 mls @ 100 mls/hr 10/07/22 14:00 10/07/22 16:19 Sod 3.375 gm/ Sodium Chloride IVPB Infused Q6H CAR Infusion Protocol IV Miscellaneous Supplies 1 each 10/06/22 23:45 Iv Access IV DIRECTED [facility] Ipratropium [place] 0.5 mg 10/07/22 08:30 10/07/22 15:18 Ipratropium 0.5 Mg/2.5 Ml Upd Vial UPD 0.5 mg QID [facility] Administration Iron/Minerals/Multivitamins 1 tab 10/07/22 08:30 10/07/22 09:46 Multivitamin W/Minerals Tab PO 1 tab DAILY CAR Administration Levalbuterol HCl 1.25 mg 10/06/22 23:45 10/07/22 15:14 Levalbuterol 1.25 Mg/3 Ml Upd Vial UPD 1.25 mg Q4H PRN PRN Administration Magnesium Hydroxide 30 ml 10/06/22 23:37 Milk Of Magnesia 30 Ml Cup PO DAILY PRN PRN Mometasone Furoate 0 gm 10/07/22 08:30 10/07/22 09:52 Mometasone 0.1% 15 Gm Tube TP 1 applic BID CAR Administration Nicotine 2 mg 10/07/22 01:26 Nicotine 2 Mg Gum CH Q2H PRN PRN Pantoprazole Sodium 40 mg 10/07/22 07:30 10/07/22 08:08 Pantoprazole 40 Mg Tabcr PO 40 mg DAILY@0730 [facility] Administration Prednisone 40 mg 10/07/22 08:30 10/07/22 09:45 Prednisone 20 Mg Tab PO 40 mg DAILY CAR Administration Rosuvastatin Calcium 40 mg 10/07/22 08:30 10/07/22 09:44 Rosuvastatin 10 Mg Tab PO 40 mg DAILY CAR Administration Sertraline HCl 100 mg 10/07/22 08:30 10/07/22 09:45 Sertraline 100 Mg Tab PO 100 mg DAILY CAR Administration Sodium Chloride 0 ml 10/06/22 23:37 10/07/22 15:25 Normal Saline Flush 10 Ml Syr IVP 30 ml PRN PRN Administration Tizanidine HCl 4 mg 10/07/22 08:30 10/07/22 09:45 Tizanidine 4 Mg Tablet PO 4 mg BID CAR Administration Allergies baclofen Adverse Reaction (Intermediate, Verified 10/06/22 14:13) mental status changes Exam Narrative Exam Narrative: Physical Exam: Gen: Patient of apparent stated age, NAD; on O2 via NC Head and face: no facial or cranial abnormalities Neck: Supple, no meningismus, no occipital tenderness CV: RRR Resp: coarse B/L Abd: soft, nontender, nondistended Ext: No edema. No clubbing or cyanosis. No bony deformity. Neuro Exam: Language: fluency, naming, repetition, and comprehension intact; Mental Status: AAOx3, current events and fund of knowledge generally intact; Speech: subtle dysarthria Cranial nerves: Funduscopy: not performed CN II: visual burdick intact in L eye; R eye is blind CN III, IV, : extraocular movements intact in L eye; R CN IV palsy, no nystagmus, L pupil reactive to light; R pupil fixed and nonreactive CN V: face sensation intact to PP CN VII: no facial asymmetry noted CN VIII: hearing intact bilaterally CN IX, X: palate rises symmetrically CN XI: trapezius/SCM 5/5 bilaterally CN XII: protrudes tongue symmetrically Sensory: intact to PP in all extremities Motor: bulk intact. Early left hand contractures. Fine motor movements intact on R. No pronator drift on R. Strength 5/5 throughout R hemibody. REduced ROM in L shoulder. 4-/5 strength throughout LUE. 4+/5 L hip flexor/quad. Distally 3-/5 ankle dorsiflexion. Reflexes: brisk throughout L hemibody but reduced at the ankles bilaterally; toes neutral bilaterally Coordination: no ataxia Gait: not tested Results Last Vital Signs Temp 98.3 F 10/07/22 14:48 Pulse 64 10/07/22 15:14 Resp 14 10/07/22 15:14 BP 153/70 H 10/07/22 14:48 Pulse Ox 93 10/07/22 15:18 Labs 10/07/22 05:26 10/07/22 05:26 Labs: Laboratory Results - last 24 hr 10/06/22 10/06/22 10/06/22 21:00 21:00 21:00 WBC 8.06 RBC 3.48 L Hgb 10.6 L Hct 33.5 L MCV 96 H MCH 30.5 MCHC 31.6 L RDW 14.6 Plt Count 142 MPV 10.8 Immature Gran % 0.4 Neutrophils % 53.5 Lymphocytes % 29.0 Monocytes % 16.5 Eosinophils % 0.5 Basophils % 0.1 Nucleated RBC % 0.0 Absolute Neutrophils 4.31 Absolute Lymphocytes 2.34 Absolute Monocytes 1.33 H Absolute Eosinophils 0.04 Absolute Basophils 0.01 D-Dimer VBG pH VBG pCO2 VBG pO2 VBG HCO3 VBG Total CO2 VBG O2 Saturation VBG Base Excess VBG Lactate 2.0 H Sodium 139 Potassium 5.3 H Chloride 106 Carbon Dioxide 23.8 Anion Gap 9.2 BUN 42 H Creatinine 2.0 H Est GFR (CKD-EPI 2020) 24.94 Glucose 184 H Calcium 8.4 L Magnesium Total Bilirubin 0.3 AST 59 H ALT 79 H Alkaline Phosphatase 115 Creatine Kinase Troponin I NT-Pro-B Natriuret Pep Total Protein 5.7 L Albumin 2.8 L Procalcitonin Urine Color Urine Clarity Urine pH Ur Specific [place] Urine Protein Urine Ketones Urine Blood Urine Nitrite Urine Bilirubin Urine Urobilinogen Ur Leukocyte Esterase Ur Random Creatinine Urine Glucose COVID-19 Source SARS-CoV-2 (PCR) Influenza Type A (PCR) Influenza Type B (PCR) RSV (PCR) Add-On Test Request 10/06/22 10/06/22 10/06/22 21:00 21:00 21:00 WBC RBC Hgb Hct MCV MCH MCHC RDW Plt Count MPV Immature Gran % Neutrophils % Lymphocytes % Monocytes % Eosinophils % Basophils % Nucleated RBC % Absolute Neutrophils Absolute Lymphocytes Absolute Monocytes Absolute Eosinophils Absolute Basophils D-Dimer VBG pH 7.32 VBG pCO2 45 VBG pO2 41 VBG HCO3 21 L VBG Total CO2 45 H VBG O2 Saturation 70 VBG Base Excess -3 L VBG Lactate Sodium Potassium Chloride Carbon Dioxide Anion Gap BUN Creatinine Est GFR (CKD-EPI 2020) Glucose Calcium Magnesium Total Bilirubin AST ALT Alkaline Phosphatase Creatine Kinase Troponin I 51 NT-Pro-B Natriuret Pep 1740 H Total Protein Albumin Procalcitonin Urine Color Urine Clarity Urine pH Ur Specific [place] Urine Protein Urine Ketones Urine Blood Urine Nitrite Urine Bilirubin Urine Urobilinogen Ur Leukocyte Esterase Ur Random Creatinine Urine Glucose COVID-19 Source Nasopharynx SARS-CoV-2 (PCR) Negative Influenza Type A (PCR) Negative Influenza Type B (PCR) Negative RSV (PCR) Negative Add-On Test Request 10/06/22 10/07/22 10/07/22 21:00 00:10 00:10 WBC RBC Hgb Hct MCV MCH MCHC RDW Plt Count MPV Immature Gran % Neutrophils % Lymphocytes % Monocytes % Eosinophils % Basophils % Nucleated RBC % Absolute Neutrophils Absolute Lymphocytes Absolute Monocytes Absolute Eosinophils Absolute Basophils D-Dimer 1552 H VBG pH VBG pCO2 VBG pO2 VBG HCO3 VBG Total CO2 VBG O2 Saturation VBG Base Excess VBG Lactate Sodium Potassium Chloride Carbon Dioxide Anion Gap BUN Creatinine Est GFR (CKD-EPI 2020) Glucose Calcium Magnesium Total Bilirubin AST ALT Alkaline Phosphatase Creatine Kinase Troponin I 74 H* NT-Pro-B Natriuret Pep Total Protein Albumin Procalcitonin < 0.1 Urine Color Urine Clarity Urine pH Ur Specific [place] Urine Protein Urine Ketones Urine Blood Urine Nitrite Urine Bilirubin Urine Urobilinogen Ur Leukocyte Esterase Ur Random Creatinine Urine Glucose COVID-19 Source SARS-CoV-2 (PCR) Influenza Type A (PCR) Influenza Type B (PCR) RSV (PCR) Add-On Test Request 10/07/22 10/07/22 10/07/22 00:10 00:10 05:26 WBC RBC Hgb Hct MCV MCH MCHC RDW Plt Count MPV Immature Gran % Neutrophils % Lymphocytes % Monocytes % Eosinophils % Basophils % Nucleated RBC % Absolute Neutrophils Absolute Lymphocytes Absolute Monocytes Absolute Eosinophils Absolute Basophils D-Dimer VBG pH VBG pCO2 VBG pO2 VBG HCO3 VBG Total CO2 VBG O2 Saturation VBG Base Excess VBG Lactate Sodium 141 Potassium 3.0 L D Chloride 105 Carbon Dioxide 24.7 Anion Gap 11.3 H BUN 41 H Creatinine 1.8 H Est GFR (CKD-EPI 2020) 28.31 Glucose 214 H Calcium 8.6 Magnesium 1.7 L Total Bilirubin AST ALT Alkaline Phosphatase Creatine Kinase 173 Troponin I NT-Pro-B Natriuret Pep Total Protein Albumin Procalcitonin Urine Color Urine Clarity Urine pH Ur Specific [place] Urine Protein Urine Ketones Urine Blood Urine Nitrite Urine Bilirubin Urine Urobilinogen Ur Leukocyte Esterase Ur Random Creatinine Urine Glucose COVID-19 Source SARS-CoV-2 (PCR) Influenza Type A (PCR) Influenza Type B (PCR) RSV (PCR) Add-On Test Request DONE 10/07/22 10/07/22 10/07/22 05:26 05:40 05:40 WBC 6.07 RBC 3.40 L Hgb 10.6 L Hct 32.3 L MCV 95 MCH 31.2 MCHC 32.8 RDW 14.6 Plt Count 143 MPV 10.8 Immature Gran % 0.5 Neutrophils % 84.5 Lymphocytes % 13.3 Monocytes % 1.5 Eosinophils % 0.0 Basophils % 0.2 Nucleated RBC % 0.0 Absolute Neutrophils 5.13 Absolute Lymphocytes 0.81 L Absolute Monocytes 0.09 L Absolute Eosinophils 0.00 Absolute Basophils 0.01 D-Dimer VBG pH VBG pCO2 VBG pO2 VBG HCO3 VBG Total CO2 VBG O2 Saturation VBG Base Excess VBG Lactate Sodium Potassium Chloride Carbon Dioxide Anion Gap BUN Creatinine Est GFR (CKD-EPI 2020) Glucose Calcium Magnesium Total Bilirubin AST ALT Alkaline Phosphatase Creatine Kinase Troponin I NT-Pro-B Natriuret Pep Total Protein Albumin Procalcitonin Urine Color Yellow Urine Clarity Clear Urine pH 5.5 Ur Specific [place] 1.020 Urine Protein Negative Urine Ketones Negative Urine Blood Negative Urine Nitrite Negative Urine Bilirubin Negative Urine Urobilinogen 0.2 Ur Leukocyte Esterase Negative Ur Random Creatinine 32.65 Urine Glucose Negative COVID-19 Source SARS-CoV-2 (PCR) Influenza Type A (PCR) Influenza Type B (PCR) RSV (PCR) Add-On Test Request 10/07/22 10/07/22 16:00 16:00 WBC RBC Hgb Hct MCV MCH MCHC RDW Plt Count MPV Immature Gran % Neutrophils % Lymphocytes % Monocytes % Eosinophils % Basophils % Nucleated RBC % Absolute Neutrophils Absolute Lymphocytes Absolute Monocytes Absolute Eosinophils Absolute Basophils D-Dimer VBG pH VBG pCO2 VBG pO2 VBG HCO3 VBG Total CO2 VBG O2 Saturation VBG Base Excess VBG Lactate Sodium Cancelled Potassium Cancelled Chloride Cancelled Carbon Dioxide Cancelled Anion Gap Cancelled BUN Cancelled Creatinine Cancelled Est GFR (CKD-EPI 2020) Cancelled Glucose Cancelled Calcium Cancelled Magnesium Cancelled Total Bilirubin AST ALT Alkaline Phosphatase Creatine Kinase Troponin I NT-Pro-B Natriuret Pep Total Protein Albumin Procalcitonin Urine Color Urine Clarity Urine pH Ur Specific [place] Urine Protein Urine Ketones Urine Blood Urine Nitrite Urine Bilirubin Urine Urobilinogen Ur Leukocyte Esterase Ur Random Creatinine Urine Glucose COVID-19 Source SARS-CoV-2 (PCR) Influenza Type A (PCR) Influenza Type B (PCR) RSV (PCR) Add-On Test Request
[2022-10-07 20:36] LABS: Urea Nitrogen Random Urine 367 mg/dL (See Note)
[2022-10-07 22:37] LABS: Anion Gap 10.1 mmol/L (3-11); BUN 42 mg/dL (7-18); CO2 23.9 mmol/L (21.0-32.0); CREATININE 1.6 mg/dL (0.55-1.02); Calcium 8.2 mg/dL (8.5-10.1); Chloride 106 mmol/L (98-107); Glucose 156 mg/dL (74-106); Magnesium 2.3 mg/dL (1.8-2.4); Potassium 3.7 mmol/L (3.5-5.1); Sodium 140 mmol/L (136-145)
[2022-10-07 22:39] LABS: Troponin I 386 ng/L (<or=60)
--- NOTE | 2022-10-07 23:00 | RT.EKG_ITS ---
APPROVED REPORT Exam: Resting ECG Reason for Exam: increasing troponin Patient Location: I HR:58 bpm ECG Measurements Heart Rate 58 AXIS OH 153 P 55 QRSd 88 QRS 10 QT 459 T 58 QTc 451 Conclusion Sinus rhythm...normal P axis, V-rate 50- 99 Ventricular premature complex...V complex w/ short R-R interval Probable left atrial enlargement...P >50mS, <-0.10mV V1 RSR' in V1 or V2, probably normal variant...small R' only Minimal ST elevation, anterior leads...ST >0.10mV, V1-V4
--- NOTE | 2022-10-07 23:32 | W.PM.PROGNOT ---
Date of Service Date of service: 10/07/22 Time of Service: 23:32 Assessment and Plan Assessment and plan (1) Elevated troponin: Status: Acute Assessment and plan: This started this morning after hypotensive episode/CVA. She has no chest pain, EKG okay, not c/w ACS. No change in management for now. Follow in the morning Subjective Subjective Interval history since last seen: called re elevated troponin. Was high this morning, higher this evening. She denies any chest pain or pressure now. Not more SOB. Exam Resp Other: CTAB, normal effort, O2 at 1L Cardio Other: RRR. 2/6 systolic murmur throughout. Extrem Other: no C/C/E Objective Last Vital Signs EKG: NSR, no STEMI, no significant change from 10/06 Temp 36.8 C 10/07/22 19:20 Pulse 81 10/07/22 19:20 Resp 16 10/07/22 19:20 BP 141/55 H 10/07/22 19:20 Pulse Ox 98 10/07/22 19:20 Laboratory Results - last 24 hr 10/07/22 10/07/22 10/07/22 00:10 00:10 00:10 WBC RBC Hgb Hct MCV MCH MCHC RDW Plt Count MPV Immature Gran % Neutrophils % Lymphocytes % Monocytes % Eosinophils % Basophils % Nucleated RBC % Absolute Neutrophils Absolute Lymphocytes Absolute Monocytes Absolute Eosinophils Absolute Basophils D-Dimer 1552 H Sodium Potassium Chloride Carbon Dioxide Anion Gap BUN Creatinine Est GFR (CKD-EPI 2020) Glucose Calcium Magnesium Creatine Kinase Troponin I 74 H* Urine Color Urine Clarity Urine pH Ur Specific [place] Urine Protein Urine Ketones Urine Blood Urine Nitrite Urine Bilirubin Urine Urobilinogen Ur Leukocyte Esterase Ur Random Creatinine Urine Glucose Add-On Test Request DONE 10/07/22 10/07/22 10/07/22 00:10 05:26 05:26 WBC 6.07 RBC 3.40 L Hgb 10.6 L Hct 32.3 L MCV 95 MCH 31.2 MCHC 32.8 RDW 14.6 Plt Count 143 MPV 10.8 Immature Gran % 0.5 Neutrophils % 84.5 Lymphocytes % 13.3 Monocytes % 1.5 Eosinophils % 0.0 Basophils % 0.2 Nucleated RBC % 0.0 Absolute Neutrophils 5.13 Absolute Lymphocytes 0.81 L Absolute Monocytes 0.09 L Absolute Eosinophils 0.00 Absolute Basophils 0.01 D-Dimer Sodium 141 Potassium 3.0 L D Chloride 105 Carbon Dioxide 24.7 Anion Gap 11.3 H BUN 41 H Creatinine 1.8 H Est GFR (CKD-EPI 2020) 28.31 Glucose 214 H Calcium 8.6 Magnesium 1.7 L Creatine Kinase 173 Troponin I Urine Color Urine Clarity Urine pH Ur Specific [place] Urine Protein Urine Ketones Urine Blood Urine Nitrite Urine Bilirubin Urine Urobilinogen Ur Leukocyte Esterase Ur Random Creatinine Urine Glucose Add-On Test Request 10/07/22 10/07/22 10/07/22 05:40 05:40 16:00 WBC RBC Hgb Hct MCV MCH MCHC RDW Plt Count MPV Immature Gran % Neutrophils % Lymphocytes % Monocytes % Eosinophils % Basophils % Nucleated RBC % Absolute Neutrophils Absolute Lymphocytes Absolute Monocytes Absolute Eosinophils Absolute Basophils D-Dimer Sodium Cancelled Potassium Cancelled Chloride Cancelled Carbon Dioxide Cancelled Anion Gap Cancelled BUN Cancelled Creatinine Cancelled Est GFR (CKD-EPI 2020) Cancelled Glucose Cancelled Calcium Cancelled Magnesium Creatine Kinase Troponin I Urine Color Yellow Urine Clarity Clear Urine pH 5.5 Ur Specific [place] 1.020 Urine Protein Negative Urine Ketones Negative Urine Blood Negative Urine Nitrite Negative Urine Bilirubin Negative Urine Urobilinogen 0.2 Ur Leukocyte Esterase Negative Ur Random Creatinine 32.65 Urine Glucose Negative Add-On Test Request 10/07/22 10/07/22 10/07/22 16:00 18:00 22:10 WBC RBC Hgb Hct MCV MCH MCHC RDW Plt Count MPV Immature Gran % Neutrophils % Lymphocytes % Monocytes % Eosinophils % Basophils % Nucleated RBC % Absolute Neutrophils Absolute Lymphocytes Absolute Monocytes Absolute Eosinophils Absolute Basophils D-Dimer Sodium Cancelled 140 Potassium Cancelled 3.7 Chloride Cancelled 106 Carbon Dioxide Cancelled 23.9 Anion Gap Cancelled 10.1 BUN Cancelled 42 H Creatinine Cancelled 1.6 H Est GFR (CKD-EPI 2020) Cancelled 32.60 Glucose Cancelled 156 H Calcium Cancelled 8.2 L Magnesium Cancelled Cancelled 2.3 Creatine Kinase Troponin I 386 H* Urine Color Urine Clarity Urine pH Ur Specific [place] Urine Protein Urine Ketones Urine Blood Urine Nitrite Urine Bilirubin Urine Urobilinogen Ur Leukocyte Esterase Ur Random Creatinine Urine Glucose Add-On Test Request Time Spent with Patient Time Spent with Patient: <25 minutes Time was spent: preparing to see the patient(eg.review tests), obtaining and/or reviewing separately otained hiistory, ordering medications,tests, procedures and indepentently interpreting results
[2022-10-07 23:37] LABS: Legionella Ag Detection Urine Negative (Negative)
[2022-10-08] VITALS (17 sets, daily range): BP systolic 111–150; BP diastolic 51–77; PULSE 58–113; RESP 1–25; TEMP 36–37.3; O2SAT 93–99
[2022-10-08] MEDS: PIPERACILLIN/TAZO 3.375 GM in Normal Saline 50 ML IVPB ×2 (02:38→08:06)
[2022-10-08] MEDS: Heparin 5,000 UNITS/ML VIAL 5000 UNITS SC ×3 (05:19→21:11)
[2022-10-08 06:41] LABS: Abs Immature Grans 0.07 10^3/uL (0.0-0.06); Absolute Eosinophil Count 0.01 10^3/uL (0.0-0.7); Absolute Lymphocyte Count 2.56 10^3/uL (1.2-3.4); Absolute Monocyte Count 1.19 10^3/uL (0.1-0.8); Basophils % 0.1; Eosinophils % 0.1; HCT 31.7 % (36.0-46.0); HGB 10.1 g/dL (11.2-15.7); Immature Grans % 0.5; Lymphocytes % 18.1; MCH 30.1 pg (27.0-33.0); MCHC 31.9 % (32.0-36.0); MCV 95 fL (80-95); MPV 10.4 fL (8.0-11.0); Monocytes % 8.4; Neutrophils % 72.8; Platelet Count 141 10^3/uL (130-400); RBC 3.35 10^6/uL (3.93-5.22); RDW 14.7 % (11.7-14.6); RDW-SD 50.7 fL; WBC 14.15 10^3/uL (4.4-10.8)
[2022-10-08 06:51] LABS: Absolute Basophil Count 0.01 10^3/uL (0.0-0.2)
[2022-10-08 07:00] LABS: ALT 85 U/L (14-59); AST 53 U/L (15-37); Alkaline Phosphatase 109 U/L (46-116); Anion Gap 9.3 mmol/L (3-11); BUN 42 mg/dL (7-18); Bilirubin, Total 0.3 mg/dL (0.2-1.0); CO2 27.7 mmol/L (21.0-32.0); CREATININE 1.7 mg/dL (0.55-1.02); Calcium 8.3 mg/dL (8.5-10.1); Calculated LDL 37 mg/dL (<100); Chloride 108 mmol/L (98-107); Cholesterol 126 mg/dL (<200); Estimated GFR 30.32 (mL/min/1.73m2); Glucose 115 mg/dL (74-106); HDL Cholesterol 79 mg/dL (40-60); Magnesium 2.3 mg/dL (1.8-2.4); Potassium 3.3 mmol/L (3.5-5.1); Sodium 145 mmol/L (136-145); Total Protein 5.8 g/dL (6.4-8.2); Triglyceride 53 mg/dL (<150)
[2022-10-08 07:02] LABS: Troponin I 378 ng/L (<or=60)
[2022-10-08 07:47] LABS: Hemoglobin A1C 6.9 % (<5.7)
[2022-10-08] MEDS: Multivitamin w/Minerals TAB 1 TAB PO (08:04)
[2022-10-08] MEDS: Aspirin E.C. 81 MG TABEC PO (08:04)
[2022-10-08] MEDS: Clopidogrel 75 MG TAB PO (08:04)
[2022-10-08] MEDS: predniSONE 20 MG TAB 40 MG PO (08:05)
[2022-10-08] MEDS: Pantoprazole 40 MG TABCR PO (08:05)
[2022-10-08] MEDS: Sertraline 100 MG TAB PO (08:05)
[2022-10-08] MEDS: Rosuvastatin 10 MG TAB 40 MG PO (08:05)
[2022-10-08] MEDS: tiZANidine 4 MG TABLET PO ×2 (08:05→19:58)
[2022-10-08] MEDS: guaiFENesin 600 MG TABCR PO ×2 (08:06→19:57)
[2022-10-08] MEDS: DOXYCYCLINE 100 MG in Normal Saline 100 ML IVPB (08:06)
[2022-10-08] MEDS: Fluticasone NASAL SPRAY 16 GM BTL NS (08:07)
[2022-10-08] MEDS: Ipratropium 0.5 MG/2.5 ML UPD VIAL UPD ×4 (09:20→20:20)
--- NOTE | 2022-10-08 09:25 | OT.INIE ---
Occupational Therapy Notes Inpatient Occupational Therapy Evaluation Date: 10/08/22 Referring Doctor:Tammi Barnard MD OT Orders: Urgent Precautions: Fall, Standard, DNR/DNI PATIENT PROFILE/ADMITTING DIAGNOSIS: Pt is a 81 year old female who was admitted through the ED for the dx of with dx of HTN, hyperlipidemia,s/p stroke, (R) carotid and vertebral artery occlusions, peripheral vascular disease, L UE tremor which pt had prior , (R) eye blindness, COPD, and chronic kidney disease. She was recently admitted to [facility] for similar symptoms and was seen prior in the outpatient setting for her (L) UE. Past Medical History: All Active Problems Hypotension (Acute) JANNA (acute kidney injury) (Acute) Discharge planning issues (Acute) DVT prophylaxis (Acute) Unresponsive episode (Acute) Acute bronchitis (Acute) Hypoxia (Acute) Acute CHF (Acute) COPD exacerbation (Acute) Chronic obstructive lung disease (Chronic) PFT'S 2009 FEV 1.15=59% continues to smoke Constipation (Chronic 11/14/17) Essential hypertension (Chronic 03/30/13) Lumbago (Chronic 05/10/13) Peripheral vascular disease (Acute) Jul 2014 [facility] aorto bifem bypass LEFT ILIAC STENT [facility] 03/2010 Polyp of colon (Acute) tubular adenoma Shoulder arthralgia (Chronic) Carotid stenosis, left (Acute) 50-69% stenosis 04/2022; complete obstruction right internal carotid.Anxiety about health (Acute) Grief reaction (Chronic) Spouse? 08/13/21 passedHand pain, left (Acute) CVA (cerebral vascular accident) (Chronic) Neuro est. between 04/2020-ounseling regarding advanced directives and goals of care (Acute) Dilated bile duct (Acute ~02/2022) s/p ERCP [facility], 10mm dilation, no masses.? Due repeat MRI in 10/2022.Left rotator cuff tear arthropathy (Chronic) 40 mg Depo-Medrol injection: 04/13/2022Nail dystrophy (Acute) Left upper quadrant abdominal pain (Acute) Seborrheic dermatitis of scalp (Acute) Productive cough (Acute) History of tobacco abuse (Acute) Medical History Disorder of ear, left Diverticulitis of colon H/O SIGMOID COLECTOMY Perichondritis Smoker (10/19/16) Surgical History? Extraction of cataract B/L 04/2013Ligation of fallopian tube Rotator Cuff Repair RIGHTS/P partial colectomy Trigger Finger release WRIST/THUMB SURGERY LEFT THUMB LEFT WRIST RIGHT THUMB Social History/Home Situation: [] Equipment owned/DME: beronica walker SUBJECTIVE: Pt was sitting in chair when OT arrived. She is discouraged that she is back in the hospital. She notes that her (R) UE is sore from her beronica walker and that she is doing better than yesterday but her (L) fingers aren't staying straight. OBJECTIVE: General Observation: Pleasant with 2-IVs in (R) UE, pt reports pain in the elbow IV which RN was notified about, pleasant, (L) UE tremor which pt did have prior, decreased (L) UE AROM, digits were on a white board to (A) with extension. OT speaks with nursing about putting this on at night. OT applied Rock tape to dorsal digits to (A) with extension and will monitor this. (L) UE should be supported on pillow when seated in chair. Mental Status: A&Ox4 Pain: c/o pain in (L) UE, (R) UE with functional mobility ROM: RUE AROM WFL L UE limited grasp and release as well as elbow and wrist ROM actively, passively full ROM STRENGTH: RUE 4-/5 throughout LUE 2+/5 throughout FUNCTIONAL MOBILITY/ADLS: Transfers with beronica walker in (R) UE although noted increased pain in her (R) UE with pressure possible from over pressure on to her (R) side Sit-Stand CGAx2 Stand-sit CGAx2 Bed-Chair CGAx2 BATHING seated position with max (A) set up/clean up Bathing UE (I) face with (R) UE and abdomen with (R) UE, max (A) for (B) UE and under abdomen/nikita area Bathing LE max (A) DRESSING seated postion Dressing UE max (A) [facility] gown Dressing LE NT GROOMING max (A) with brushing hair TOILETING on commode max (A) with toileting hygiene EATING seated in chair (I) with (R) UE BALANCE: Static sitting Normal Dynamic Sitting Good Static Standing Fair Dynamic Standing Poor without (A) SPECIAL TESTS: Daily Activity Limitations Standardized Measure [facility] AM -PAC ?6 clicks? Daily Activity Inpatient Short Form: Raw score: 10 Standardized score: 27.31 CMS score: 74.70% INFORMED CONSENT/EDUCATION: Pt instructed in purpose of OT Consult and plan of care. ASSESSMENT: Patient is a 81-year-old female referred to occupational therapy services with diagnosis of hypertension, hyperlipidemia,s/p stroke, (R) carotid and vertebral artery occlusions, peripheral vascular disease, L arm tremor which pt had prior , R eye blindness s/p R CRVO, R CN4 palsy, COPD, and chronic kidney disease. Patient presents with clinical signs and symptoms consistent with dx, as demonstrated by the following impairment level findings/functional limitations: Impairments in ADL/IADL and leisure activities, decreased gross and fine motor control of (L) UE, decreased grasp and release of (L) hand, impairments in (L) shoulder and UE AROM, pain in (L) UE, decreased functional mobility required for ADL performance, high risk for digit contracture of (L) UE, decreased (I) in ADLs in the seated position. AMPAC score 10 Patient is assessed as a high 03743 complexity based on the following: History: see above Examination: see functional limitations as noted above Presentation: evolving Decision Making: AMPAC score 10 GOALS Goals x1 week 1. Transfers with (S) 2. Dressing (I) UE, mod (I) LE 3. Bathing (I) in seated position 4. Toileting on toilet (I) 5. Eating (I) PLAN OF CARE/TREATMENT PLAN: 1x/day, 5 days/ week x 1week Initiate Occupational Therapy Services for bathing, dressing, grooming, toileting, eating, transfer training. DISCHARGE RECOMMENDATIONS Home with PT vs. short term stay at [facility] OT recommends an outpatient OT eval for fabrication of resting hand orthosis for (L) UE TREATMENT TIME/MINUTES/CODES 26025, 66971, 30 minutes (08:50) Susan Sandhu OTR/[facility] [place], [place]
--- NOTE | 2022-10-08 10:41 | PDOC.CMPRO ---
- If Service Date Differs Date of service: 10/08/22 Time of Service: 10:41 Care Management Progress Note S/O: Kathleen was evaluated by PT today, who are recommending SNF. She remains acutely inpatient, and was having an updraft when CM greeted her. Per MD, Kathleen's respiratory status appears to be declining and she will have a Chest CTA at this time. CM continues to follow. A: 81 year old female admitted to [facility] 10/06/22 for acute exacerbatino of COPD, acute CHF, hypotension P: Anticipate Kathleen will return home with new HH services vs SNF for short term rehab. PT is currently recommending SNF. She will transport via [facility] vs facility w/c van. She will follow up with her PCP and discharge plan of care. CM will continue to follow.
--- NOTE | 2022-10-08 11:25 | W.PM.PROGNOT ---
Date of Service Date of service: 10/07/22 Objective Last Vital Signs Temp 37 C 10/08/22 07:42 Pulse 63 10/08/22 07:42 Resp 20 10/08/22 07:42 BP 150/77 H 10/08/22 07:42 Pulse Ox 94 10/08/22 08:00 Laboratory Results - last 24 hr 10/07/22 10/07/22 10/07/22 05:40 15:15 16:00 WBC RBC Hgb Hct MCV MCH MCHC RDW Plt Count MPV Immature Gran % Neutrophils % Lymphocytes % Monocytes % Eosinophils % Basophils % Nucleated RBC % Absolute Neutrophils Absolute Lymphocytes Absolute Monocytes Absolute Eosinophils Absolute Basophils Sodium Cancelled Potassium Cancelled Chloride Cancelled Carbon Dioxide Cancelled Anion Gap Cancelled BUN Cancelled Creatinine Cancelled Est GFR (CKD-EPI 2020) Cancelled Glucose Cancelled Hemoglobin A1c Calcium Cancelled Magnesium Total Bilirubin AST ALT Alkaline Phosphatase Troponin I Total Protein Albumin Triglycerides Total Cholesterol LDL Cholesterol, Calc HDL Cholesterol Urine Urea Nitrogen 367 Urine Legionella Ag Negative 10/07/22 10/07/22 10/07/22 16:00 18:00 22:10 WBC RBC Hgb Hct MCV MCH MCHC RDW Plt Count MPV Immature Gran % Neutrophils % Lymphocytes % Monocytes % Eosinophils % Basophils % Nucleated RBC % Absolute Neutrophils Absolute Lymphocytes Absolute Monocytes Absolute Eosinophils Absolute Basophils Sodium Cancelled 140 Potassium Cancelled 3.7 Chloride Cancelled 106 Carbon Dioxide Cancelled 23.9 Anion Gap Cancelled 10.1 BUN Cancelled 42 H Creatinine Cancelled 1.6 H Est GFR (CKD-EPI 2020) Cancelled 32.60 Glucose Cancelled 156 H Hemoglobin A1c Calcium Cancelled 8.2 L Magnesium Cancelled Cancelled 2.3 Total Bilirubin AST ALT Alkaline Phosphatase Troponin I 386 H* Total Protein Albumin Triglycerides Total Cholesterol LDL Cholesterol, Calc HDL Cholesterol Urine Urea Nitrogen Urine Legionella Ag 10/08/22 10/08/22 10/08/22 06:15 06:15 06:15 WBC 14.15 H RBC 3.35 L Hgb 10.1 L Hct 31.7 L MCV 95 MCH 30.1 MCHC 31.9 L RDW 14.7 H Plt Count 141 MPV 10.4 Immature Gran % 0.5 Neutrophils % 72.8 Lymphocytes % 18.1 Monocytes % 8.4 Eosinophils % 0.1 Basophils % 0.1 Nucleated RBC % 0.0 Absolute Neutrophils 10.30 H Absolute Lymphocytes 2.56 Absolute Monocytes 1.19 H Absolute Eosinophils 0.01 Absolute Basophils 0.01 Sodium 145 Potassium 3.3 L Chloride 108 H Carbon Dioxide 27.7 Anion Gap 9.3 BUN 42 H Creatinine 1.7 H Est GFR (CKD-EPI 2020) 30.32 Glucose 115 H Hemoglobin A1c 6.9 H Calcium 8.3 L Magnesium 2.3 Total Bilirubin 0.3 AST 53 H ALT 85 H Alkaline Phosphatase 109 Troponin I 378 H* Total Protein 5.8 L Albumin 3.0 L Triglycerides 53 Total Cholesterol 126 LDL Cholesterol, Calc 37 HDL Cholesterol 79 Urine Urea Nitrogen Urine Legionella Ag
[2022-10-08 11:45] LABS: Troponin I 304 ng/L (<or=60)
--- NOTE | 2022-10-08 13:27 | IN_ITS ---
Date of service: 10/08/22 Time of Service: 11:00 PT Notes Visit Reasons: Acute Exacerbation of COPD,Acute CHF,Hypotention Physical Therapy Inpatient Initial Evaluation Date: 10/08/2022 Referring Doctor: Tammi Barnard MD PT Orders: PT CONSULT: Limited ability Precautions: Fall. Standard. Activity as tolerated. L-sided hemiparesis from previous stroke. Patient Profile/Admitting Diagnosis:? Kathleen is a 81-year-old female who presented to the ED on 10/26/2022 due to fatig ue and shortness of breath.? Patient is admitted for management of COPD exacerbation, acute CHF, acute bronchitis, hypotension, hypoxia, acute kidney injury. Per Dr. Germain, patient has acute on chronic left hemiparesis and dysarthria. PMHX: All Active Problems Hypotension (Acute) JANNA (acute kidney injury) (Acute) Discharge planning issues (Acute) DVT prophylaxis (Acute) Unresponsive episode (Acute) Acute bronchitis (Acute) Hypoxia (Acute) Acute CHF (Acute) COPD exacerbation (Acute) Chronic obstructive lung disease (Chronic) PFT'S 2009 FEV 1.15=59% continues to smoke Constipation (Chronic 11/14/17) Essential hypertension (Chronic 03/30/13) Lumbago (Chronic 05/10/13) Peripheral vascular disease (Acute) Jul 2014 [facility] aorto bifem bypass LEFT ILIAC STENT [facility] 03/2010 Polyp of colon (Acute) tubular adenoma Shoulder arthralgia (Chronic) Carotid stenosis, left (Acute) 50-69% stenosis 04/2022; complete obstruction right internal carotid. Anxiety about health (Acute) Grief reaction (Chronic) Spouse? 08/13/21 passed Hand pain, left (Acute) CVA (cerebral vascular accident) (Chronic) Neuro est. between 04/2020-ounseling regarding advanced directives and goals of care (Acute) Dilated bile duct (Acute ~02/2022) s/p ERCP [facility], 10mm dilation, no masses.? Due repeat MRI in 10/2022. Left rotator cuff tear arthropathy (Chronic) 40 mg Depo-Medrol injection: 04/13/2022 Nail dystrophy (Acute) Left upper quadrant abdominal pain (Acute) Seborrheic dermatitis of scalp (Acute) Productive cough (Acute) History of tobacco abuse (Acute) Medical History Disorder of ear, left Diverticulitis of colon H/O SIGMOID COLECTOMY Perichondritis Smoker (10/19/16) Surgical History? Extraction of cataract B/L 04/2013 Ligation of fallopian tube Rotator Cuff Repair RIGHTS/P partial colectomy Trigger Finger release WRIST/THUMB SURGERY LEFT THUMB LEFT WRIST RIGHT THUMB Social History/Home Situation: Patient lives alone in a private home.? States that she has a son and a daughter who live close by.? Independent with all mobility ADLs using hemiwalker.? Used to be able to walk up to 30 feet safely.? Rides [facility] for her grocery shopping and doctor's appointments. Equipment Owned/DME: Hemiwalker, SPC, emergency alert device Subjective: Reports mild pain in left upper extremity. Patient states that she has fallen 3 times since July this year due to worsening balance problem.? States that her left leg just goes to sleep and gives out without warning.? Indicates that she has been struggling at home with her day to day activities like putting a bra on,? cleaning herself,? and working in the kitchen because of her L arm and leg weakness.? Objective: General Observation: Seated on bedside chair.? In NAD. L UE resting on pillow, finger taping done by OT earlier seen. IV access through R UE. Mental Status: Alert and oriented as to person, place, time, and purpose. Able to pay attention, focus, and respond appropriately. Pain: 2-3/10 in the L shoulder and arm ROM: Right Upper Extremity: ? Shoulder Flexion WFL. Shoulder abduction WFL. Elbow flexion WFL. Wrist flexion WFL. Functional opening and closing of hand WFL. Left Upper Extremity:? Shoulder Flexion allows up to 60 degrees with pain report at EOR. Shoulder abduction allows up to 40 degrees with pain report at EOR. Elbow flexion allows up to 90 degrees. Wrist flexion less than 25% of AROM. Functional opening and closing of hand limited. Right Lower Extremity: Hip flexion WFL. Hip abduction WFL. Knee flexion WFL. Ankle dorsiflexion WFL. Ankle plantarflexion WFL. Left Lower Extremity: Hip flexion allows up to 90 degrees. Hip abduction allows up to 20 degrees.? Knee flexion 30 degrees to 90 degrees. Ankle dorsiflexion to neutral only. Ankle plantarflexion about 10 degrees. Strength: Right Upper Extremity: Shoulder flexors 4-/5. Shoulder abductors 4-/5. Elbow flexors 4-/5. Elbow extensors 4-/5. Production Solderer weak. Left Upper Extremity: Shoulder flexors 3-/5. Shoulder abductors 3-/5. Elbow flexors 3-/5. Elbow extensors 3-/5. Production Solderer weak. Right Lower Extremity: Hip flexors 4-/5. Hip abductors 4-/5. Knee flexors 4-/5. Knee extensors 4-/5. Ankle dorsiflexors 4-/5. Ankle plantarflexors 4-/5. Left Lower Extremity: Hip flexors 3-/5. Hip abductors 3-/5. Knee flexors 3-/5. Knee extensors 2-/5. Ankle dorsiflexors 2-/5. Ankle plantarflexors 3-/5. Bed Mobility/Transfers: Sit to stand with contact guard assist of 2 Stand to sit with contact guard assist of 2 Gait: 20 feet requiring contact guard assist and wheelchair follow by YONI Byers.? L hemiparetic gait.? L UE in abnormal flexion synergy. L LE in abnormal extensor synergy. Increased L UE/LE tone with effort. Step height and width asymmetric.? Short of breath and fatigued. Cueing provided to decrease R trunk lean, to improve hemiwalker management, and facilitate better control of breathing to reduce fatigue. Balance: Static Sitting: Poor Dynamic Sitting: Poor Static Standing: Poor Dynamic Standing: Poor Special Tests: Mobility Limitations Standardized Measure [facility] 6 clicks Basic Mobility Inpatient Short Form: Raw Score: 17? CMS Score: 51% deficit? ? ? NEURO: Spasticity/Hypertonicity in L UE/LE 4-stage Balance Test deferred Abnormal flexion synergy in L UE,? extension synergy in L LE Babinski Reflex present in L LE L hemineglect in L UE/LE Mild trunk lean to R Informed Consent/Education:? Patient was instructed in purpose of PT consult and plan of care. Agreeable to proceed with established PT POC to achieve personal goals. Assessment: Awareness of midline impaired. Activity tolerance reduced due to COPD exacerbation. Chronic pain in L UE limiting mobility. Hemiparetic gait pattern increasing risk for falls. Patient presents with clinical signs and symptoms consistent with current/admitting diagnoses that have resulted to mobility limitations, gait instability, generalized weakness, and overall ADL decline as demonstrated by the following impairment level findings: 1.? Decreased strength to L UE/LE major muscle groups 2.? Impaired sitting/standing balance 3.? Impaired activity tolerance 4.? Limitation of joint range of motion in L UE/LE 5.? Shortness of breath 6.? Pain in L shoulder from L rotator cuff tear and pre-existing L sided- hemiparesis Impairments are contributing to the following functional limitations: 1.? Decline in bed mobility skills 2.? Decline in transfer skills 3.? Difficulty with ambulation without assistive device and physical assistance 4.? Increased completion time for mobility ADL performance 5.? Increased risk for falls 6.? Difficulty with managing steps alone safely Patient is assessed as a 82282 moderate complexity based on the following: History: 81-year-old female with past medical history as indicated above Examination: Demonstrable impairment in strength, balance, and mobility level with underlying impairments and functional limitations as exhibited above as well as deficit score of 69% utilizing the [facility] Mobility Inpatient Short Form Presentation: Evolving Decision Makin moderate complexity Goals: Goals X1 week 1. Supine-Sit independent 2. Sit-Supine independent 3. Sit-Stand independent 4. Stand-Sit independent with hemiwalker 5. Bed-Chair independent with hemiwalker 6. Chair-Bed independent with hemiwalker 7. Independent gait on level surface with use of hemiwalker for at least 100 feet without report of pain nor dyspnea 8. Independent stair negotiation while holding onto R rail rails for at least 3 steps without report of pain nor dyspnea 9. Independent with home exercise program 10. Good static and dynamic standing balance/tolerance Plan of Care/Treatment Plan: 1-2x/day, 7 days/week x 1 week. Plan of care has been reviewed with the FLAME PLANER providing the service under Physical Therapy direction. Initiate Physical Therapy intervention for pain management as needed, strengthening, bed mobility, transfers, gait, stairs, balance training, and use of assistive device. DISCHARGE RECOMMENDATIONS: [] ? Home with no services [] [] ? Home with services [specify] [] ? Home with outpatient PT [] [X] ? SNF for continued rehabilitation.? Patient will benefit from fdc facility placement for continued skilled physical therapy services in order to progress mobility level, strength, and balance in preparation for a safe discharge to home. [] ? Curve Saw Operator Care [] [] ? SNF versus LTC based on ability to participate and progress [] TREATMENT CODE/TIME: 14365 x 20 minutes,? 26077 x 11 minutes beginning at 11:00 AM. Thank you for the opportunity to participate in the care of this patient. Rebecca Regan PT, DPT, CLT [facility] [place], [place]
--- NOTE | 2022-10-08 13:43 | PGE_ITS ---
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 right side is dependent on her left cerebrovascular flow. She was begun on Plavix and ASA and already is on rosuvatatin w/ appropriately low LDL of 37 and total cholesterol 126. continue DAPT for at least 3 months, maybe longer since she was already on ASA as OP. Professional time spent interviewing and examining patient, discussion of goals of care with hospital team (care management, nursing and consulting professionals) was 60 minutes. (2) COPD exacerbation: Status: Acute Assessment and plan: CXR on admission dis not show any acute findings but patient has had increased cough and allegedly increased sputum production. She is being treated w/ Zosyn and doxycyline for AECOPD w/ bronchitis but also has been receiving oxygen, nebulizers and steroids (prednisone). However she is now having acute worsening of her breathing after getting up to the bathroom and give hx of increased GUZMAN at home. Her troponin I was positive in setting of her hypotension episode. I am concerned that she may be having some CHF or even cardiac ischemia. I will repeat her EKG now as well as CXR as well as repeat labs (troponin, BNP, VBG). (3) Acute bronchitis: Status: Acute Assessment and plan: dc iv antibiotics; continue prednisone but will increase to 60 mg daily and wean q7days; put her on Bactrim DS one daily while on prednisone over 20 mg per day. She was not resumed on her Spiriva on admission (maybe d/t her being on Duoneb?). I will restart Spiriva and add Symbicort. We have national shortage of albuterol so I will switch her to xopenex. (4) Elevated troponin: Status: Acute Assessment and plan: secondary to her hypotensive episode. repeat EKG done last night and again this afternoon w/out ischemic/injury pattern. ECHO w/o RWMA, preserved LVEF 55% (5) JANNA (acute kidney injury): Status: Acute Assessment and plan: improved but not resolved. continue to monitor, avoid nephrotoxins (6) DVT prophylaxis: Status: Acute Assessment and plan: SC heparin (7) Discharge planning issues: Status: Acute Assessment and plan: DNR/DNI no longer in ICU, was transferred to med/surg yesterday. [facility] d/t her resp. status. Subjective Subjective Interval history since last seen: Patient was admitted on 10/06 d/t acute hypotension, associated w/ CVA symptoms of garbled speech. She was found to have NSTEMI, type II demand ischemic event and eventually was found to have new CVA in the right in the right temporal lobe (in watershed area from her pror CVA). Hypotension had resolved by the time she was admitted to ICU (after 1250 L of LR). She has had no CP since admission but admits that she has been having dyspnea w/ her ADL at home and since admission she gets very dyspneic going from the bed to the chair. Exam Narrative Exam Narrative: Kathleen is sitting up bolt upright in bed, dyspneic w/ any prolonged conversation w/ audible wheezing Heart: regular, no murmur or rub or gallops Abdomen: benign Legs: no edmea or tenderness after her aerosol treatment, she seems to have calmed down, w/ improved air flow Objective Last Vital Signs Temp 36.7 C 10/08/22 11:29 Pulse 63 10/08/22 11:29 Resp 25 H 10/08/22 11:29 BP 127/74 10/08/22 11:29 Pulse Ox 98 10/08/22 11:29 Laboratory Results - last 24 hr 10/07/22 10/07/22 10/07/22 05:40 15:15 16:00 WBC RBC Hgb Hct MCV MCH MCHC RDW Plt Count MPV Immature Gran % Neutrophils % Lymphocytes % Monocytes % Eosinophils % Basophils % Nucleated RBC % Absolute Neutrophils Absolute Lymphocytes Absolute Monocytes Absolute Eosinophils Absolute Basophils Sodium Cancelled Potassium Cancelled Chloride Cancelled Carbon Dioxide Cancelled Anion Gap Cancelled BUN Cancelled Creatinine Cancelled Est GFR (CKD-EPI 2020) Cancelled Glucose Cancelled Hemoglobin A1c Calcium Cancelled Magnesium Total Bilirubin AST ALT Alkaline Phosphatase Troponin I Total Protein Albumin Triglycerides Total Cholesterol LDL Cholesterol, Calc HDL Cholesterol Urine Urea Nitrogen 367 Urine Legionella Ag Negative 10/07/22 10/07/22 10/07/22 16:00 18:00 22:10 WBC RBC Hgb Hct MCV MCH MCHC RDW Plt Count MPV Immature Gran % Neutrophils % Lymphocytes % Monocytes % Eosinophils % Basophils % Nucleated RBC % Absolute Neutrophils Absolute Lymphocytes Absolute Monocytes Absolute Eosinophils Absolute Basophils Sodium Cancelled 140 Potassium Cancelled 3.7 Chloride Cancelled 106 Carbon Dioxide Cancelled 23.9 Anion Gap Cancelled 10.1 BUN Cancelled 42 H Creatinine Cancelled 1.6 H Est GFR (CKD-EPI 2020) Cancelled 32.60 Glucose Cancelled 156 H Hemoglobin A1c Calcium Cancelled 8.2 L Magnesium Cancelled Cancelled 2.3 Total Bilirubin AST ALT Alkaline Phosphatase Troponin I 386 H* Total Protein Albumin Triglycerides Total Cholesterol LDL Cholesterol, Calc HDL Cholesterol Urine Urea Nitrogen Urine Legionella Ag 10/08/22 10/08/22 10/08/22 06:15 06:15 06:15 WBC 14.15 H RBC 3.35 L Hgb 10.1 L Hct 31.7 L MCV 95 MCH 30.1 MCHC 31.9 L RDW 14.7 H Plt Count 141 MPV 10.4 Immature Gran % 0.5 Neutrophils % 72.8 Lymphocytes % 18.1 Monocytes % 8.4 Eosinophils % 0.1 Basophils % 0.1 Nucleated RBC % 0.0 Absolute Neutrophils 10.30 H Absolute Lymphocytes 2.56 Absolute Monocytes 1.19 H Absolute Eosinophils 0.01 Absolute Basophils 0.01 Sodium 145 Potassium 3.3 L Chloride 108 H Carbon Dioxide 27.7 Anion Gap 9.3 BUN 42 H Creatinine 1.7 H Est GFR (CKD-EPI 2020) 30.32 Glucose 115 H Hemoglobin A1c 6.9 H Calcium 8.3 L Magnesium 2.3 Total Bilirubin 0.3 AST 53 H ALT 85 H Alkaline Phosphatase 109 Troponin I 378 H* Total Protein 5.8 L Albumin 3.0 L Triglycerides 53 Total Cholesterol 126 LDL Cholesterol, Calc 37 HDL Cholesterol 79 Urine Urea Nitrogen Urine Legionella Ag 10/08/22 11:03 WBC RBC Hgb Hct MCV MCH MCHC RDW Plt Count MPV Immature Gran % Neutrophils % Lymphocytes % Monocytes % Eosinophils % Basophils % Nucleated RBC % Absolute Neutrophils Absolute Lymphocytes Absolute Monocytes Absolute Eosinophils Absolute Basophils Sodium Potassium Chloride Carbon Dioxide Anion Gap BUN Creatinine Est GFR (CKD-EPI 2020) Glucose Hemoglobin A1c Calcium Magnesium Total Bilirubin AST ALT Alkaline Phosphatase Troponin I 304 H* Total Protein Albumin Triglycerides Total Cholesterol LDL Cholesterol, Calc HDL Cholesterol Urine Urea Nitrogen Urine Legionella Ag Reviewed Pertinent PMH: Yes Objective Narrative Objective Narrative: stat CXR did not show any pulmonary edema Time Spent with Patient Time Spent with Patient: >50 minutes Time was spent: preparing to see the patient(eg.review tests), obtaining and/or reviewing separately otained hiistory, ordering medications,tests, procedures, referring, communicating with other health critical care unit nurse, indepentently interpreting results, counseling the patient (Including her daughter) and care coordination
--- NOTE | 2022-10-08 13:45 | RT.EKG_ITS ---
APPROVED REPORT Exam: Resting ECG Reason for Exam: dysppnea; r/o IL Patient Location: I HR:77 bpm ECG Measurements Heart Rate 77 AXIS MA [id number] P [id number] QRSd 80 QRS 11 QT 395 T 59 QTc 448 Conclusion Sinus rhythm RSR' in V1 or V2, probably normal variant...small R' only Poor R wave progression
--- NOTE | 2022-10-08 13:55 | DI.RAD_ITS ---
Exam(s) XR PORTABLE CHEST AP EXAM: XR PORTABLE CHEST AP CLINICAL HISTORY: dyspnea TECHNIQUE: 2D digital imaging was performed of the chest. One image was obtained. An AP view was ob tained. COMPARISON: CR,XR XR CHEST 2V PA LATERAL from 10/06/2022 FINDINGS: MEDIASTINUM: Normal. HEART: Normal. PULMONARY VASCULATURE: Normal. LUNGS: Clear. PLEURAL SPACE: No pleural effusion or pneumothorax. BONE:Within normal limits for the patient's age. OTHER FINDINGS:Normal. IMPRESSION: No acute pulmonary findings. DATA REPOSITORY: RADIATION DOSE DELIVERED:
[2022-10-08] MEDS: MORPHine 2 MG/ML SYR 1 MG IVP ×2 (14:10→15:28)
[2022-10-08] MEDS: Potassium Chloride 10 MEQ CAPCR 40 MEQ PO (14:11)
[2022-10-08 14:12] LABS: BE (Venous) -4 mmol/L (-2-3); HCO3 (Venous) 21 mmol/L (23-28); O2 Sat (Venous) 85 %; TCO2 (Venous) 20 mmol/L (24-29); pCO2 (Venous) 38 mmHg (41-51); pH (Venous) 7.36 (7.31-7.41); pO2 (Venous) 50 mmHg
[2022-10-08 14:35] LABS: NT-proBNP 889 pg/mL (<300)
--- NOTE | 2022-10-08 14:43 | CHAPLAIN ---
I had a brief visit with Kathleen. I explained my role and offered support. She said she was looking forward to going home. There were two friends/family member with her.
[2022-10-08 14:50] LABS: Troponin I 247 ng/L (<or=60)
[2022-10-08] MEDS: Levalbuterol 1.25 MG/3 ML UPD VIAL UPD ×3 (14:54→19:58)
[2022-10-08] MEDS: Sulfameth/Trimeth DS TAB 1 TAB PO (15:05)
[2022-10-08] MEDS: predniSONE 20 MG TAB PO (15:06)
--- NOTE | 2022-10-08 15:15 | DI.CT_ITS ---
Exam(s) CT CHEST PE CTA EXAM: CT CHEST PE CTA CLINICAL HISTORY: acute dyspnea, hypoxemia. TECHNIQUE: Imaging Protocol: Axial CT angiography was performed with multi-slice acquisition and mu lti-planar and/or 3D reconstructions. CONTRAST MATERIAL: Intravenous: Omnipaque 350 contrast volume:60 mL COMPARISON: CT CT ABDOMEN PELVIS W from 02/05/[address] CHEST WO from 02/05/2022 FINDINGS: The examination is limited due to patient motion artifact. Tracheobronchial tree: Patent where visualized. Pulmonary parenchyma: Centrilobular emphysematous changes are present. There is a 5 mm nodule in the right middle lobe. There is a 3 mm nodule in the left upper lobe. No focal consolidating infiltrat es are seen. Pulmonary Arteries: Patient motion artifact limits evaluation of the subsegmental pulmonary arteries. No large central pulmonary embolus is seen. Mediastinum and Natasha: No dominant adenopathy or fluid collection. The esophagus is unremarkable. Visualized thyroid gland: Unremarkable. Pleura: No effusion or pneumothorax. Heart: The heart is not dilated. Coronary artery calcifications are present. There is calcification of the aortic and mitral valves. No pericardial effusion. Aorta: Thoracic aorta non-dilated. No evidence of dissection. Atherosclerosis. Upper abdomen: Unremarkable. Soft tissues: Unremarkable. Bones: Within normal limits for the patient's age. IMPRESSION: 1. Examination limited by patient motion artifact. This results in limited evaluation of the subsegm ental pulmonary arteries. 2. No large central pulmonary embolus, aortic dissection or aneurysm. 3. Stable pulmonary nodules. RADIATION DOSE DELIVERED: 257.97mGy.cm Total DLP DATA REPOSITORY: All CT scans at this facility are submitted to the National Radiology Data Registry (NRDR) Dose Index Registry (DIR) with the [employer] (ACR). RADIATION OPTIMIZATION: All CT scans at this facility use at least one of these dose optimization te chniques: automated exposure control; mA and/or kV adjustment per patient size (includes targeted exa ms where dose is matched to clinical indication); or iterative reconstruction.
[2022-10-08 15:18] LABS: Procalcitonin < 0.1 ng/mL
--- NOTE | 2022-10-08 15:23 | PCNE_ITS ---
Date of service: 10/08/22 Time of Service: 15:23 [facility] All Active Problems Ischemic cerebrovascular accident (CVA) due to atherosclerosis of large extracranial artery (Acute) Elevated troponin (Acute) Left hemiparesis (Acute) 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 occlusion (Acute) Hypotension (Acute) JANNA (acute kidney injury) (Acute) Discharge planning issues (Acute) DVT prophylaxis (Acute) Unresponsive episode (Acute) Acute bronchitis (Acute) Hypoxia (Acute) Acute CHF (Acute) COPD exacerbation (Acute) Chronic obstructive lung disease (Chronic) PFT'S 2009 FEV 1.15=59% continues to smoke Constipation (Chronic 11/14/17) Essential hypertension (Chronic 03/30/13) Lumbago (Chronic 05/10/13) Peripheral vascular disease (Acute) [place] [facility] [place] [facility] [place] Polyp of colon (Acute) tubular adenoma Shoulder arthralgia (Chronic) Carotid stenosis, left (Acute) 50-69% stenosis 04/2022; complete obstruction right internal carotid. Anxiety about health (Acute) Grief reaction (Chronic) Spouse 08/13/21 passed Hand pain, left (Acute) CVA (cerebral vascular accident) (Chronic) Neuro est. between 04/2020-11/2021 Counseling regarding advanced directives and goals of care (Acute) Dilated bile duct (Acute ~02/2022) s/p ERCP [facility], 10mm dilation, no masses. Due repeat MRI in 10/2022. Left rotator cuff tear arthropathy (Chronic) 40 mg Depo-Medrol injection: 04/13/2022 Nail dystrophy (Acute) Left upper quadrant abdominal pain (Acute) Seborrheic dermatitis of scalp (Acute) Productive cough (Acute) History of tobacco abuse (Acute) Medical History Disorder of ear, left Diverticulitis of colon H/O SIGMOID COLECTOMY Perichondritis Smoker (10/19/16) Surgical History Extraction of cataract B/L 04/2013 Ligation of fallopian tube Rotator Cuff Repair RIGHT S/P partial colectomy Trigger Finger release WRIST/THUMB SURGERY LEFT THUMB LEFT WRIST RIGHT THUMB Family History Mother Diabetes Essential hypertension Stroke Father , 55 Heart disease Stroke Brother , 71 Complications from surgery No problems noted. Son No problems noted. Son No problems noted. Daughter No problems noted. Daughter No problems noted. Social History Smoking/Tobacco Use Status: Current every day Tobacco Type: cigarettes Smoking packs per day: 0.5 Smoking cigarettes per day: 10.0 Years smoked: 63 Smoking pack-years: 31.50 Tobacco: How many years used: 63 Quit status: considering quitting Second Hand Exposure: Yes Smoking risk assessment performed?: Yes Alcohol Intake: never Drug use: Rarely Counseling given: No Counseling provided: none Caregiver/Support person: No Household members: none Housing: house Number of Children: 4 Communication Needs: Hard of Hearing Do you need help understanding health information?: Rarely Pets and animals: Yes Pets and animals: dog(s) Sexually active: No Do you think of yourself as: straight/heterosexual Current gender identity: female What is your relationship status?: How often do you talk on the phone with friends or family?: three or more times per week Do you belong to any clubs or organized social groups?: no Panel score (0-1 are the most socially isolated patients): 1 What type of physical activity do you participate in: none Darlene/Rastafari: No preference Special darlene needs: No Seatbelt use: always Helmet use: No Drive intox or ride w/intox driver education instructor: No Do you feel safe at home: Yes Do you feel safe in your relationship?: Yes Results Last Vital Signs Temp 36.7 C 10/08/22 11:29 Pulse 63 10/08/22 11:29 Resp 25 H 10/08/22 11:29 BP 127/74 10/08/22 11:29 Pulse Ox 97 10/08/22 14:54 Labs 10/08/22 06:15 10/08/22 06:15 Labs: Laboratory Results - last 24 hr 10/07/22 10/07/22 10/07/22 05:40 15:15 18:00 WBC RBC Hgb Hct MCV MCH MCHC RDW Plt Count MPV Immature Gran % Neutrophils % Lymphocytes % Monocytes % Eosinophils % Basophils % Nucleated RBC % Absolute Neutrophils Absolute Lymphocytes Absolute Monocytes Absolute Eosinophils Absolute Basophils VBG pH VBG pCO2 VBG pO2 VBG HCO3 VBG Total CO2 VBG O2 Saturation VBG Base Excess Sodium Cancelled Potassium Cancelled Chloride Cancelled Carbon Dioxide Cancelled Anion Gap Cancelled BUN Cancelled Creatinine Cancelled Est GFR (CKD-EPI 2020) Cancelled Glucose Cancelled Hemoglobin A1c Calcium Cancelled Magnesium Cancelled Total Bilirubin AST ALT Alkaline Phosphatase Troponin I NT-Pro-B Natriuret Pep Total Protein Albumin Triglycerides Total Cholesterol LDL Cholesterol, Calc HDL Cholesterol Procalcitonin Urine Urea Nitrogen 367 Urine Legionella Ag Negative 10/07/22 10/08/22 10/08/22 22:10 06:15 06:15 WBC 14.15 H RBC 3.35 L Hgb 10.1 L Hct 31.7 L MCV 95 MCH 30.1 MCHC 31.9 L RDW 14.7 H Plt Count 141 MPV 10.4 Immature Gran % 0.5 Neutrophils % 72.8 Lymphocytes % 18.1 Monocytes % 8.4 Eosinophils % 0.1 Basophils % 0.1 Nucleated RBC % 0.0 Absolute Neutrophils 10.30 H Absolute Lymphocytes 2.56 Absolute Monocytes 1.19 H Absolute Eosinophils 0.01 Absolute Basophils 0.01 VBG pH VBG pCO2 VBG pO2 VBG HCO3 VBG Total CO2 VBG O2 Saturation VBG Base Excess Sodium 140 145 Potassium 3.7 3.3 L Chloride 106 108 H Carbon Dioxide 23.9 27.7 Anion Gap 10.1 9.3 BUN 42 H 42 H Creatinine 1.6 H 1.7 H Est GFR (CKD-EPI 2020) 32.60 30.32 Glucose 156 H 115 H Hemoglobin A1c Calcium 8.2 L 8.3 L Magnesium 2.3 2.3 Total Bilirubin 0.3 AST 53 H ALT 85 H Alkaline Phosphatase 109 Troponin I 386 H* 378 H* NT-Pro-B Natriuret Pep Total Protein 5.8 L Albumin 3.0 L Triglycerides 53 Total Cholesterol 126 LDL Cholesterol, Calc 37 HDL Cholesterol 79 Procalcitonin Urine Urea Nitrogen Urine Legionella Ag 10/08/22 10/08/22 10/08/22 06:15 11:03 14:05 WBC RBC Hgb Hct MCV MCH MCHC RDW Plt Count MPV Immature Gran % Neutrophils % Lymphocytes % Monocytes % Eosinophils % Basophils % Nucleated RBC % Absolute Neutrophils Absolute Lymphocytes Absolute Monocytes Absolute Eosinophils Absolute Basophils VBG pH VBG pCO2 VBG pO2 VBG HCO3 VBG Total CO2 VBG O2 Saturation VBG Base Excess Sodium Potassium Chloride Carbon Dioxide Anion Gap BUN Creatinine Est GFR (CKD-EPI 2020) Glucose Hemoglobin A1c 6.9 H Calcium Magnesium Total Bilirubin AST ALT Alkaline Phosphatase Troponin I 304 H* 247 H* NT-Pro-B Natriuret Pep 889 H Total Protein Albumin Triglycerides Total Cholesterol LDL Cholesterol, Calc HDL Cholesterol Procalcitonin Urine Urea Nitrogen Urine Legionella Ag 10/08/22 10/08/22 10/08/22 14:05 14:05 14:05 WBC RBC Hgb Hct MCV MCH MCHC RDW Plt Count MPV Immature Gran % Neutrophils % Lymphocytes % Monocytes % Eosinophils % Basophils % Nucleated RBC % Absolute Neutrophils Absolute Lymphocytes Absolute Monocytes Absolute Eosinophils Absolute Basophils VBG pH 7.36 VBG pCO2 38 L VBG pO2 50 VBG HCO3 21 L VBG Total CO2 20 L VBG O2 Saturation 85 VBG Base Excess -4 L Sodium Potassium Chloride Carbon Dioxide Anion Gap BUN Creatinine Est GFR (CKD-EPI 2020) Glucose Hemoglobin A1c Calcium Magnesium Total Bilirubin AST ALT Alkaline Phosphatase Troponin I NT-Pro-B Natriuret Pep Cancelled Total Protein Albumin Triglycerides Total Cholesterol LDL Cholesterol, Calc HDL Cholesterol Procalcitonin < 0.1 Urine Urea Nitrogen Urine Legionella Ag
[2022-10-08 16:14] LABS: D-Dimer 1400 ng/mlFEU (<500)
[2022-10-08 16:23] LABS: Potassium 3.5 mmol/L (3.5-5.1)
[2022-10-08] MEDS: Normal Saline - Diluent 50 ML VIAL IJ (16:24)
[2022-10-08] MEDS: Omnipaque 350 MG/ML 100 ML BTL IJ (16:24)
--- NOTE | 2022-10-08 17:34 | DI.VRAD_ITS ---
PROCEDURE INFORMATION: Exam: CTA Chest With Contrast Exam date and time: 10/08/2022 4:24 PM Age: 81 years old Clinical indication: Other: Acute dyspnea, hypoxemia TECHNIQUE: Imaging protocol: Computed tomographic angiography of the chest with contrast. 3D rendering (Not supervised by radiologist): MIP and/or 3D reconstructed images were created by the technologist. Contrast material: OMNIPAQUE 350; Contrast volume: 100 ml; Contrast route: INTRAVENOUS (IV); COMPARISON: CT CHEST WO 02/05/2022 9:20 AM FINDINGS: Pulmonary arteries: No evidence of pulmonary embolus to the segmental level. Aorta: No aneurysm of the aorta. No dissection of the aorta. Lungs: Atelectasis in the left upper lobe. 5.5 mm nodule in the right middle lobe series 4, image 32. Smaller nodules in the left upper lobe Pleural spaces: Unremarkable. No pneumothorax. No pleural effusion. Heart: There is calcification of the mitral valve annulus. Coronary arteries: Coronary artery calcifications may indicate coronary artery disease. Lymph nodes: Unremarkable. No enlarged lymph nodes. Bones/joints: Unremarkable. No acute fracture. Soft tissues: Unremarkable. IMPRESSION: 1. No evidence of pulmonary embolus to the segmental level. 2. No aneurysm of the aorta. 3. No dissection of the aorta. Dictated and Authenticated by: Karoline Salinas MD. Ordering:[facility] Pedro Esqueda MD
--- NOTE | 2022-10-08 17:48 | PT.INNT ---
Date of service: 10/08/22 Time of Service: 15:33 PT Notes Visit Reasons: Acute Exacerbation of COPD,Acute CHF,Hypotention Patient and daughter refused afternoon session due to worsening shortness of breath. Currently on breathing treatment with RT and nurse when PT came in. Will defere session for the afternoon and plan to see patient tomorrow morning.
--- NOTE | 2022-10-08 17:54 | W.SPSTE ---
Date of service: 10/08/22 Time of Service: 17:15 Subjective CLINICAL SWALLOW EVALUATION - SPEECH-LANGUAGE PATHOLOGY - INPATIENT Consult received for Clinical Swallow Evaluation from Tammi Barnard MD given evidence of CVA and poor respiratory status. HPI: Kathleen Jaffe is a 81 year-old R handed woman with hypertension, hyperlipidemia,? history of stroke (2020 & 2021), R carotid and vertebral artery occlusions, peripheral vascular disease, L arm tremor, R eye blindness s/p R CRVO, R CN4 palsy, COPD, and chronic kidney disease. She was admitted to [facility] 10/06/22 with 2 days of increasing SOB as well as slurred speech, worsened L hemiparesis, hypotension. MRI indicated new R frontal CVA, and she is currently also being treated for COPD exacerbation/acute bronchitis. Her family who visited recently noted she was appearing to be close to her baseline since initial admission.? She denies any dysphagia at this time. -MRI brain w/wo (10/07/22): acute scattered punctate ischemic infarcts in the R temporal and parietal lobes; and a single punctate focus in the right frontal lobe. Old large right frontal stroke. PFSH All Active Problems Hypotension (Acute) JANNA (acute kidney injury) (Acute) Discharge planning issues (Acute) DVT prophylaxis (Acute) Unresponsive episode (Acute) Acute bronchitis (Acute) Hypoxia (Acute) Acute CHF (Acute) COPD exacerbation (Acute) Chronic obstructive lung disease (Chronic) PFT'S 2009 FEV 1.15=59% continues to smoke Constipation (Chronic 11/14/17) Essential hypertension (Chronic 03/30/13) Lumbago (Chronic 05/10/13) Peripheral vascular disease (Acute) Jul [place] [facility] [place] [facility] [place] Polyp of colon (Acute) tubular adenoma Shoulder arthralgia (Chronic) Carotid stenosis, left (Acute) 50-69% stenosis 04/2022; complete obstruction right internal carotid.Anxiety about health (Acute) Grief reaction (Chronic) Spouse? 08/13/21 passedHand pain, left (Acute) CVA (cerebral vascular accident) (Chronic) Neuro est. between 04/2020-ounseling regarding advanced directives and goals of care (Acute) Dilated bile duct (Acute ~02/2022) s/p ERCP [facility], 10mm dilation, no masses.? Due repeat MRI in 10/2022.Left rotator cuff tear arthropathy (Chronic) 40 mg Depo-Medrol injection: 04/13/2022Nail dystrophy (Acute) Left upper quadrant abdominal pain (Acute) Seborrheic dermatitis of scalp (Acute) Productive cough (Acute) History of tobacco abuse (Acute) Medical History Disorder of ear, left Diverticulitis of colon H/O SIGMOID COLECTOMY Perichondritis Smoker (10/19/16) Surgical History? Extraction of cataract B/L 04/2013Ligation of fallopian tube Rotator Cuff Repair RIGHTS/P partial colectomy Trigger Finger release WRIST/THUMB SURGERY LEFT THUMB LEFT WRIST RIGHT THUMB Subjective: Per RN, patient's breathing took a downturn this afternoon. RN has not noticed any difficulty with swallowing. Patient complains of esophageal stasis especially to dry foods. She and family deny frequent coughing with liquids, choking episodes, food getting stuck in throat. She does endorse sometimes feelings of extreme fullness with meals and unable to eat more. Often turns to belching which is her signal to stop. Family feels she is back to baseline with cognitition and communication. Objective Objective Oral motor evaluation: Unremarkable Oral-peripheral exam: Fully edentulous with upper plate only, does not wear this when eating. Dry tongue with some redness and irritation. Speech: No evidence of dysarthria. Cognitive/Communication: to situation, time, self. Expresses needs, discomfort, preferences clearly and concisely. Respiratory: 3L O2 via nasal cannula, with noisy inspiratory wheezing, appears anxious. Laryngeal Cough is sharp/strong. Volitional swallow is difficulty to initiate, demonstrates difficulty coordinating respiration and suspect this is worsened by dry mouth. Voice quality is clear/dry at baseline. PO Trials: [place] Swallow Screen: PASS - drinks 3 oz thin liquids continuously without stopping, no change in voice quality cough/throat clear. Regular solids: Prolonged mastication with reduced rotary pattern in absence of dentition, however, there is no oral residue, pocketing, oral fixation, anterior bolus loss (sometimes seen after CVA). No s/sx aspiration. Patient denies pharyngeal stasis. Reflexive swallow is quite palpable suggestive of good hyo-laryngeal motility. Respiratory status/noises do not increase while eating/drinking. Assessment Suspect patient is primarily with esophageal dysphagia (Hx reflux?). She does not appear with any oral-motor or pharyngeal weakness due to CVA however given her current respiratory status and Hx COPD, as well as esophageal dysphagia reported, she should receive soft/bite size foods and added moisture/sauces. Given esophageal symptoms, there could be concern for reflux aspiration, especially at night, provided reflux counseling including timing and positioning for meals and sleeping. Provided education regarding normal vs disordered swallow function, relationship between respiratory dysfunction and choking/aspiration risk, and rationale for diligent and frequent oral care to mitigate aspiration risks. Patient and family verbalize understanding and in agreement. PLAN No further MANAGER PERFORMANCE follow-up necessary unless status worsens significantly or further concerns are presented. Recommendations: Diet Texture Modification(s): IDDSI Level(s) SOLIDS 6-Soft & Bite-Sized Solids LIQUIDS 0-Thin Liquids Medication Intake: Whole with 0-Thin Liquids or 4-Puree RISK MANAGEMENT: HOB upright as tolerated; upright for all PO intake. Encourage physical mobility as tolerated. Oral hygiene BID/2x per day AND before/after PO intake, using friction with toothbrush on all oral structures as tolerated ? Level of Assistance/Supervision: 1:1 distant supervision for all PO intake PO intake only when awake/alert? Strategies/Adaptations/Assistive Equipment: Reduce auditory and/or visual distractions when eating Provide verbal and/or visual cues to use recommended strategies Small sips and bites when eating Slow rate of intake Alternate intake of liquids and solids Small+frequent meals throughout day Posture/Positioning Needs: Maintain upright position at least 30 minutes after meals Avoid meals/snacks 2-3 hours prior to reclining/sleeping Sleep with head of bed elevated to reduce likelihood of nocturnal reflux Time spent: 35 minutes Coding Diagnoses CPT Codes EVALUATE SWALLOWING FUNCTION - [id number] ([id number])
[2022-10-08] MEDS: LORazepam 2 MG/ML VIAL 0.5 MG IVP (18:17)
[2022-10-08] MEDS: Potassium Chloride 10 MEQ CAPCR 20 MEQ PO (19:45)
[2022-10-08] MEDS: Doxycycline Hyclate 100 MG CAP PO (19:58)
[2022-10-08] MEDS: Budesonide/Formoterol 160/4.5 6 GM 60 PUFF INH IH (20:24)
[2022-10-08] MEDS: Tiotropium Bromide-Respimat 10 PUFF INH 2 PUFF IH (20:44)
[2022-10-09] VITALS (22 sets, daily range): BP systolic 103–190; BP diastolic 56–90; PULSE 64–153; RESP 2–24; TEMP 36.4–37.1; O2SAT 79–100
[2022-10-09 00:14] LABS: Streptococcus Pneumoniae Ag, U Negative (Negative)
[2022-10-09] MEDS: Heparin 5,000 UNITS/ML VIAL 5000 UNITS SC ×3 (05:14→21:24)
[2022-10-09 06:59] LABS: Abs Immature Grans 0.12 10^3/uL (0.0-0.06); Basophils % 0.1; HCT 32.3 % (36.0-46.0); HGB 10.1 g/dL (11.2-15.7); Immature Grans % 0.7; MCH 30.3 pg (27.0-33.0); MCHC 31.3 % (32.0-36.0); MCV 97 fL (80-95); MPV 10.3 fL (8.0-11.0); Monocytes % 6.5; Neutrophils % 75.7; Platelet Count 145 10^3/uL (130-400); RBC 3.33 10^6/uL (3.93-5.22); RDW-SD 53.4 fL; WBC 17.04 10^3/uL (4.4-10.8)
[2022-10-09 07:03] LABS: Absolute Basophil Count 0.02 10^3/uL (0.0-0.2); Absolute Monocyte Count 1.11 10^3/uL (0.1-0.8)
[2022-10-09 07:23] LABS: Anion Gap 7.9 mmol/L (3-11); BUN 37 mg/dL (7-18); CO2 26.1 mmol/L (21.0-32.0); CREATININE 1.5 mg/dL (0.55-1.02); Calcium 9.4 mg/dL (8.5-10.1); Chloride 111 mmol/L (98-107); Estimated GFR 35.23 (mL/min/1.73m2); Glucose 102 mg/dL (74-106); Potassium 4.2 mmol/L (3.5-5.1); Sodium 145 mmol/L (136-145)
--- NOTE | 2022-10-09 08:15 | RT.EKG_ITS ---
APPROVED REPORT Exam: Resting ECG Reason for Exam: follow up of questionable afib Patient Location: I HR:79 bpm ECG Measurements Heart Rate 79 AXIS CO 131 P 48 QRSd 75 QRS 21 QT 371 T 31 QTc 426 Conclusion Sinus rhythm...normal P axis, V-rate 50- 99 Normal Electrocardiogram Artifact in lead(s) I,III,aVR,aVL,aVF
[2022-10-09] MEDS: Budesonide/Formoterol 160/4.5 6 GM 60 PUFF INH IH ×2 (08:38→20:02)
[2022-10-09] MEDS: Tiotropium Bromide-Respimat 10 PUFF INH 2 PUFF IH (08:38)
[2022-10-09] MEDS: Ipratropium 0.5 MG/2.5 ML UPD VIAL UPD ×4 (08:42→20:03)
[2022-10-09] MEDS: Levalbuterol 1.25 MG/3 ML UPD VIAL UPD ×4 (08:44→20:03)
[2022-10-09] MEDS: Doxycycline Hyclate 100 MG CAP PO ×2 (08:55→19:45)
[2022-10-09] MEDS: Fluticasone NASAL SPRAY 16 GM BTL NS (08:55)
[2022-10-09] MEDS: Sulfameth/Trimeth DS TAB 1 TAB PO (08:55)
[2022-10-09] MEDS: Multivitamin w/Minerals TAB 1 TAB PO (08:55)
[2022-10-09] MEDS: Nystatin 500000 UNITS/5 ML SUSP 5ML CUP PO ×3 (08:55→19:45)
[2022-10-09] MEDS: Rosuvastatin 10 MG TAB 40 MG PO (08:55)
[2022-10-09] MEDS: predniSONE 20 MG TAB 60 MG PO (08:56)
[2022-10-09] MEDS: Clopidogrel 75 MG TAB PO (08:56)
[2022-10-09] MEDS: Pantoprazole 40 MG TABCR PO (08:56)
[2022-10-09] MEDS: tiZANidine 4 MG TABLET PO ×2 (08:56→19:45)
[2022-10-09] MEDS: Aspirin E.C. 81 MG TABEC PO (08:56)
[2022-10-09] MEDS: guaiFENesin 600 MG TABCR PO ×2 (08:56→19:45)
[2022-10-09] MEDS: Sertraline 100 MG TAB PO (08:56)
[2022-10-09] MEDS: Potassium Chloride 10 MEQ CAPCR 20 MEQ PO ×3 (08:56→19:44)
[2022-10-09] MEDS: MORPHine 2 MG/ML SYR 1 MG IVP ×2 (09:26→15:43)
[2022-10-09] MEDS: LORazepam 0.5 MG TAB PO (09:27)
--- NOTE | 2022-10-09 09:58 | PT.INTREAT ---
Date of service: 10/09/22 Time of Service: 08:25 PT Notes Visit Reasons: Acute Exacerbation of COPD,Acute CHF,Hypotention Inpatient Physical Therapy Treatment Note [facility] Date: 10/09/2022 PRECAUTIONS: Fall, activity as tolerated SUBJECTIVE: Carlene is pleasant and agreeable to participating in PT. She reports that she is still not feeling well. OBJECTIVE: PAIN: No c/o pain BED MOBILITY/TRANSFERS Sit-stand: CGA Stand-sit: CGA GAIT Assistive Device: Hemiwalker (R) Weight bearing: Full Assist: CGA Distance: 20' Deviation: Slow pacing, increased SOB, 4L O2 via NC Per nursing request, held further gait training due to hypertension. ASSESSMENT: Patient tolerated session with complaint of increased fatigue and severe SOB. She demonstrates slow pacing and limited activity tolerance. Session was limited per nursing request due to hypertension. PLAN: Continue with general conditioning and gait training for improved mobility and activity tolerance, when appropriate. TREATMENT CODE/TIME: 15 minutes; 81547 (09:25)
--- NOTE | 2022-10-09 13:08 | W.PM.PROGNOT ---
Date of Service Date of service: 10/09/22 Time of Service: 13:09 Assessment and Plan Assessment and plan (1) Ischemic cerebrovascular accident (CVA) due to atherosclerosis of large extracranial artery: Status: Acute Assessment and plan: s/p acute CVA of right temporal lobe in watershed area of prior CVA due to hypotension leading to ischemia in area already compromised by chronic occlusion of right ICA. right side is dependent on her left cerebrovascular flow. She was begun on Plavix and ASA and already is on rosuvatatin w/ appropriately low LDL of 37 and total cholesterol 126. continue DAPT for at least 3 months, maybe longer since she was already on ASA as OP. per her daughter, the patient has another adult child who had CVA and who was resistant to Plavix. Family is unclear as to whether or not this member was tested for genetic resistance or not. As Kathleen had not been on Plavix at the time of this stroke and her CVA was associated w/ low BP, I would not pursue testing at this time nor would I change her to Prasugel. Professional time spent interviewing and examining patient, discussion of goals of care with hospital team (care management, nursing and consulting professionals) was 30 minutes. (2) COPD exacerbation: Status: Acute Assessment and plan: Workup yesterday did not reveal any acute CHF and no PE per her CTA. I think that she just has very bad COPD w/ bronchospasms. She may have intermittent mucous plugging. On admission she was having more productive cough but now it is non-productive. I willl give her a trial of low dose lasix for 24 hours but she does not appear to be volume overloaded. I will continue Symbicort, Spiriva and xopenex w/ipatropium but use the xopenex and ipatroprium prn acute dyspnea/wheezing and particularly use prior to exercise/physical activity (3) Acute bronchitis: Status: Acute Assessment and plan: dc iv antibiotics; continue prednisone but will increase to 60 mg daily and wean q7days; put her on Bactrim DS one daily while on prednisone over 20 mg per day. She was not resumed on her Spiriva on admission (maybe d/t her being on Duoneb?). I will restart Spiriva and add Symbicort. We have national shortage of albuterol so I will switch her to xopenex. (4) Elevated troponin: Status: Acute Assessment and plan: secondary to her hypotensive episode. repeat EKG done last night and again this afternoon w/out ischemic/injury pattern. ECHO w/o RWMA, preserved LVEF 55% but has LVH and therefore by definition has HFPEF; trial of low dose lasix will be given (5) JANNA (acute kidney injury): Status: Acute Assessment and plan: improved but not resolved. continue to monitor, avoid nephrotoxins (6) DVT prophylaxis: Status: Acute Assessment and plan: SC heparin (7) Discharge planning issues: Status: Acute Assessment and plan: DNR/DNI still needs hospitalization d/t her resp. status. Subjective Subjective Interval history since last seen: Patient had another bad episode of acute dyspnea this morning w/ ambulating in the room. She is still very wheezy. Her oxygen needs however have declined. She is now on 2 lpm at rest. She is 98%. She is not really coughing much mucous. CTA done yesterday did not show any PE nor any effusions and no consolidations. Exam Narrative Exam Narrative: Elderly white female lying in bed in semi-upright No overt JVD Lungs: she has audible wheezes diffusely Heart: RRR, no murmur Abdomen: soft, nontender Legs: no cyanosis no edema Objective Last Vital Signs Temp 36.4 C L 10/09/22 11:50 Pulse 64 10/09/22 11:50 Resp 21 10/09/22 11:50 BP 103/58 L 10/09/22 11:50 Pulse Ox 95 10/09/22 11:50 Laboratory Results - last 24 hr 10/07/22 10/08/22 10/08/22 15:15 14:05 14:05 WBC RBC Hgb Hct MCV MCH MCHC RDW Plt Count MPV Immature Gran % Neutrophils % Lymphocytes % Monocytes % Eosinophils % Basophils % Nucleated RBC % Absolute Neutrophils Absolute Lymphocytes Absolute Monocytes Absolute Eosinophils Absolute Basophils D-Dimer VBG pH VBG pCO2 VBG pO2 VBG HCO3 VBG Total CO2 VBG O2 Saturation VBG Base Excess Sodium Potassium Chloride Carbon Dioxide Anion Gap BUN Creatinine Est GFR (CKD-EPI 2020) Glucose Calcium Troponin I 247 H* NT-Pro-B Natriuret Pep 889 H Cancelled Procalcitonin Ur Strep pneumoniae Ag Negative 10/08/22 10/08/22 10/08/22 14:05 14:05 15:35 WBC RBC Hgb Hct MCV MCH MCHC RDW Plt Count MPV Immature Gran % Neutrophils % Lymphocytes % Monocytes % Eosinophils % Basophils % Nucleated RBC % Absolute Neutrophils Absolute Lymphocytes Absolute Monocytes Absolute Eosinophils Absolute Basophils D-Dimer VBG pH 7.36 VBG pCO2 38 L VBG pO2 50 VBG HCO3 21 L VBG Total CO2 20 L VBG O2 Saturation 85 VBG Base Excess -4 L Sodium Potassium 3.5 Chloride Carbon Dioxide Anion Gap BUN Creatinine Est GFR (CKD-EPI 2020) Glucose Calcium Troponin I NT-Pro-B Natriuret Pep Procalcitonin < 0.1 Ur Strep pneumoniae Ag 10/08/22 10/09/22 10/09/22 15:39 06:10 06:10 WBC 17.04 H RBC 3.33 L Hgb 10.1 L Hct 32.3 L MCV 97 H MCH 30.3 MCHC 31.3 L RDW 15.0 H Plt Count 145 MPV 10.3 Immature Gran % 0.7 Neutrophils % 75.7 Lymphocytes % 17.0 Monocytes % 6.5 Eosinophils % 0.0 Basophils % 0.1 Nucleated RBC % 0.0 Absolute Neutrophils 12.90 H Absolute Lymphocytes 2.90 Absolute Monocytes 1.11 H Absolute Eosinophils 0.00 Absolute Basophils 0.02 D-Dimer 1400 H VBG pH VBG pCO2 VBG pO2 VBG HCO3 VBG Total CO2 VBG O2 Saturation VBG Base Excess Sodium 145 Potassium 4.2 Chloride 111 H Carbon Dioxide 26.1 Anion Gap 7.9 BUN 37 H Creatinine 1.5 H Est GFR (CKD-EPI 2020) 35.23 Glucose 102 Calcium 9.4 Troponin I NT-Pro-B Natriuret Pep Procalcitonin Ur Strep pneumoniae Ag Time Spent with Patient Time Spent with Patient: 25-34 minutes Time was spent: preparing to see the patient(eg.review tests), ordering medications,tests, procedures, indepentently interpreting results, counseling the patient (family including son and daughter) and care coordination
[2022-10-09] MEDS: Normal Saline Flush 10 ML SYR IVP ×2 (14:22→15:43)
[2022-10-09] MEDS: Furosemide 20 MG/2 ML VIAL IVP (14:22)
[2022-10-10] VITALS (23 sets, daily range): BP systolic 109–170; BP diastolic 53–64; PULSE 60–93; RESP 1–24; TEMP 36.7–37.1; O2SAT 88–99
[2022-10-10] MEDS: Heparin 5,000 UNITS/ML VIAL 5000 UNITS SC ×3 (05:21→21:15)
[2022-10-10 06:51] LABS: Abs Immature Grans 0.09 10^3/uL (0.0-0.06); Absolute Basophil Count 0.01 10^3/uL (0.0-0.2); Absolute Eosinophil Count 0.03 10^3/uL (0.0-0.7); Absolute Lymphocyte Count 3.02 10^3/uL (1.2-3.4); Absolute Monocyte Count 1.01 10^3/uL (0.1-0.8); Absolute Neutrophil Count 10.29 10^3/uL (1.2-6.7); Basophils % 0.1; Eosinophils % 0.2; HCT 32.3 % (36.0-46.0); HGB 10.2 g/dL (11.2-15.7); Immature Grans % 0.6; Lymphocytes % 20.9; MCH 29.9 pg (27.0-33.0); MCHC 31.6 % (32.0-36.0); MCV 95 fL (80-95); MPV 10.9 fL (8.0-11.0); Neutrophils % 71.2; Platelet Count 153 10^3/uL (130-400); RBC 3.41 10^6/uL (3.93-5.22); RDW-SD 51.7 fL; WBC 14.45 10^3/uL (4.4-10.8)
[2022-10-10 07:18] LABS: Anion Gap 6.8 mmol/L (3-11); BUN 35 mg/dL (7-18); C-Reactive Protein 0.05 mg/dL (0.0-0.3); CO2 27.2 mmol/L (21.0-32.0); CREATININE 1.6 mg/dL (0.55-1.02); Calcium 9.4 mg/dL (8.5-10.1); Chloride 108 mmol/L (98-107); Glucose 125 mg/dL (74-106); NT-proBNP 2006 pg/mL (<300); Sodium 142 mmol/L (136-145)
[2022-10-10] MEDS: Nystatin 500000 UNITS/5 ML SUSP 5ML CUP PO ×3 (08:17→19:19)
[2022-10-10] MEDS: Rosuvastatin 10 MG TAB 40 MG PO (08:17)
[2022-10-10] MEDS: Pantoprazole 40 MG TABCR PO (08:18)
[2022-10-10] MEDS: Sertraline 100 MG TAB PO (08:18)
[2022-10-10] MEDS: Clopidogrel 75 MG TAB PO (08:18)
[2022-10-10] MEDS: Potassium Chloride 10 MEQ CAPCR 20 MEQ PO ×3 (08:18→19:19)
[2022-10-10] MEDS: Multivitamin w/Minerals TAB 1 TAB PO (08:18)
[2022-10-10] MEDS: Aspirin E.C. 81 MG TABEC PO (08:18)
[2022-10-10] MEDS: guaiFENesin 600 MG TABCR PO ×2 (08:18→19:19)
[2022-10-10] MEDS: tiZANidine 4 MG TABLET PO ×2 (08:18→19:19)
[2022-10-10] MEDS: Doxycycline Hyclate 100 MG CAP PO ×2 (08:19→19:19)
[2022-10-10] MEDS: Furosemide 40 MG/4 ML VIAL IVP ×2 (08:19→16:48)
[2022-10-10] MEDS: Fluticasone NASAL SPRAY 16 GM BTL NS (08:20)
[2022-10-10] MEDS: Sulfameth/Trimeth DS TAB 1 TAB PO (08:29)
[2022-10-10] MEDS: Budesonide/Formoterol 160/4.5 6 GM 60 PUFF INH IH ×2 (09:15→20:09)
[2022-10-10] MEDS: Tiotropium Bromide-Respimat 10 PUFF INH 2 PUFF IH (09:15)
[2022-10-10 09:34] LABS: C Diff PCR Negative (Negative)
[2022-10-10] MEDS: predniSONE 20 MG TAB 60 MG PO (09:42)
[2022-10-10] MEDS: Levalbuterol 1.25 MG/3 ML UPD VIAL UPD ×3 (12:33→20:13)
[2022-10-10] MEDS: Ipratropium 0.5 MG/2.5 ML UPD VIAL UPD ×3 (12:35→20:13)
--- NOTE | 2022-10-10 15:02 | W.PM.PROGNOT ---
Date of Service Date of service: 10/10/22 Time of Service: 15:03 Assessment and Plan Assessment and plan (1) Ischemic cerebrovascular accident (CVA) due to atherosclerosis of large extracranial artery: Status: Acute Assessment and plan: s/p acute CVA of right temporal lobe in watershed area of prior CVA due to hypotension leading to ischemia in area already compromised by chronic occlusion of right ICA. right side is dependent on her left cerebrovascular flow. She was begun on Plavix and ASA and already is on rosuvatatin w/ appropriately low LDL of 37 and total cholesterol 126. continue DAPT for at least 3 months, maybe longer since she was already on ASA as OP. per her daughter, the patient has another adult child who had CVA and who was resistant to Plavix. Family is unclear as to whether or not this member was tested for genetic resistance or not. As Kathleen had not been on Plavix at the time of this stroke and her CVA was associated w/ low BP, I would not pursue testing at this time nor would I change her to Prasugel. I had put her back on telemetry out of concern for one of her EKG looking like afib however her rhythm has been sinus over the past 24 hours. I will dc her tele to make her more comfortable as it has been stable Professional time spent interviewing and examining patient, discussion of goals of care with hospital team (care management, nursing and consulting professionals) was 30 minutes. (2) COPD exacerbation: Status: Acute Assessment and plan: Despite her CXR not showing acute CHF, she seems to be hypervolemic and she has responded nicely to the iv lasix. She diuresed 3 liters yesterday. I will continue lasix for one more day. She probably needs some maintenance oral diuretics to keep her out of CHF. I suspect her CHF is d/t HFPEF and her pulm. Htn I will continue Symbicort, Spiriva and xopenex w/ipatropium but use the xopenex and ipatroprium prn acute dyspnea/wheezing and particularly use prior to exercise/physical activity (3) Acute bronchitis: Status: Acute Assessment and plan: dc iv antibiotics; continue prednisone but will increase to 60 mg daily and wean q7days; put her on Bactrim DS one daily while on prednisone over 20 mg per day. She was not resumed on her Spiriva on admission (maybe d/t her being on Duoneb?). I will restart Spiriva and add Symbicort. We have national shortage of albuterol so I will switch her to xopenex. (4) Elevated troponin: Status: Acute Assessment and plan: secondary to her hypotensive episode. repeat EKG done last night and again this afternoon w/out ischemic/injury pattern. ECHO w/o RWMA, preserved LVEF 55% but has LVH and therefore by definition has HFPEF; trial of low dose lasix has been given w/ good response. continue lasix for another 24hr (5) JANNA (acute kidney injury): Status: Acute Assessment and plan: improved but not resolved. continue to monitor, avoid nephrotoxins. stable BUn and creatinine 35 and creatinine 1.6 (6) DVT prophylaxis: Status: Acute Assessment and plan: SC heparin (7) Discharge planning issues: Status: Acute Assessment and plan: DNR/DNI still needs hospitalization d/t her resp. status. Subjective Subjective Interval history since last seen: Patient's breathing is better today. However she has been having diarrhea. Reportedly had 9 stools, liquid last night. Stool for C diff this morning however was negative. She does not like the lasix iv d/t having to void and being unable to get to the toilet in time. She does not want a vee catheter. We will try her w/ external catheter. She still needs diuresis. She is less congested today. Exam Narrative Exam Narrative: elderly white female who is sitting up in her chair visiting w/ her son and her daughter. She is not dyspneic w/ conversation and she is not having audible wheezing today Lungs: prolonged expiratory phase w/ end expiratory Heart: regular in rate and rhythm (review of telemetry demonstrates NSR) Abdomen: soft, nontender Extremities: no edema; right antecubital looks ok Objective Last Vital Signs Temp 36.9 C 10/10/22 12:06 Pulse 72 10/10/22 12:53 Resp 24 10/10/22 12:53 BP 109/56 L 10/10/22 12:06 Pulse Ox 92 10/10/22 14:13 Laboratory Results - last 24 hr 10/10/22 10/10/22 10/10/22 05:30 06:10 06:10 WBC 14.45 H RBC 3.41 L Hgb 10.2 L Hct 32.3 L MCV 95 MCH 29.9 MCHC 31.6 L RDW 15.0 H Plt Count 153 MPV 10.9 Immature Gran % 0.6 Neutrophils % 71.2 Lymphocytes % 20.9 Monocytes % 7.0 Eosinophils % 0.2 Basophils % 0.1 Nucleated RBC % 0.0 Absolute Neutrophils 10.29 H Absolute Lymphocytes 3.02 Absolute Monocytes 1.01 H Absolute Eosinophils 0.03 Absolute Basophils 0.01 Sodium 142 Potassium 4.0 Chloride 108 H Carbon Dioxide 27.2 Anion Gap 6.8 BUN 35 H Creatinine 1.6 H Est GFR (CKD-EPI 2020) 32.60 Glucose 125 H Calcium 9.4 C-Reactive Protein 0.05 NT-Pro-B Natriuret Pep 2006 H Stl C.difficile Tox PCR Negative Time Spent with Patient Time Spent with Patient: 25-34 minutes Time was spent: preparing to see the patient(eg.review tests), ordering medications,tests, procedures, indepentently interpreting results, counseling the patient and care coordination
[2022-10-11] VITALS (7 sets, daily range): BP systolic 91–157; BP diastolic 54–71; PULSE 57–80; RESP 18–24; TEMP 36.2–37.2; O2SAT 92–95
[2022-10-11] MEDS: Heparin 5,000 UNITS/ML VIAL 5000 UNITS SC ×3 (05:08→21:11)
--- NOTE | 2022-10-11 07:03 | PUCON_ITS ---
General Date Of Service Date of service: 10/11/22 Time of Service: 07:03 Reason for Consult: COPD exacerbation Pulmonary hypertension Assessment and Plan Assessment and plan (1) COPD exacerbation: Status: Acute (2) Pulmonary nodules/lesions, multiple: Status: Acute (3) Pulmonary hypertension: Status: Acute Assessment and plan: This is a 81 yo with CHF, CVA and COPD, whom I am seeing for a COPD exacerbation. She is on room air currently. She is on very high dosages of both inhaled and oral steroids for COPD. I recommend decreasing the prednisone to 40mg and will taper her off of them. She does not need to be on Bactrim ppx for a short steroid taper, so would discontinue this. She also should not be on high ICS dose Symbicort, so will decrease the Symbicort to 80. I do think she should have the ICS/LABA added to her Incruse on discharge due to her recurrent exacerbations. She is on Incruse at home and this works well for her, so I will change the ordered Spiriva to Incruse. If she continues to have exacerbations, I will plan on starting her on roflumilast or chronic azithromycin. She would also benefit from a home nebulizer and Duonebs. 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 The PAP's may be more elevated than her baseline in the setting of volume overload, so I will plan on repeating the echo as an outpatient. COPD Exacerbation - decrease prednisone to 40mg for 5 days, 30mg for 3 days, 20mg for 3 days, 10mg for 3 days, 5mg for 3 days - no ppx for PJP needed for this length of high dose steroids - decreased Symbicort from 160 to 80 - changed Spiriva to her home Incruse - make her nebulizers prn - recommend she be discharged with home nebulizers - agree with doxycycline for a total course of 5 days - I will see her in follow up as an outpatient Pulmonary Hypertension, group 2 and 3 - optimization of pulmonary and cardiac diseases - I will repeat echo as an outpatient to reassess PAP's at euvolemia Pulmonary nodules - stable, will follow up with repeat CT in 1 year History of Present Illness Narrative: This is a 81 yo woman admitted for a COPD exacerbation, CVS and CHF exacerbation. She had a recent COPD exacerbation as well discharged on 3/27/23 but returns with the same issue. She had been started on treatment for an exacerbation as an outpatient but failed this. Upon admission she was placed on BiPAP for an unclear reason to me as she was not retaining CO2. She has had PFT's in 2012 and by the volume time curve and flow volume loop there is obstruction, but I cannot see the raw data. As an outpatient she is controlled with Incruse and prn albuterol. While in the hospital she is being treated with Duonebs, prednisone 60mg, Symbicort 160 and Spiriva. She is a current smoker. Today, she feels as though she is doing much better. Her breahting is significantly easier than when she came into the hospital. She tells me that she quit smoking in August. She has had a couple COPD exacerbations in the last month. She is not requiring oxygen at this time. She tells me that the Incruse works very well for her and she had been without the Incruse for 3 days immediately preceding her hospital admission. She states she called the pharmacy for a refill on the Incruse but they refilled the albuterol inhaler instead. 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 (Acute) Hypotension (Acute) JANNA (acute kidney injury) (Acute) Discharge planning issues (Acute) DVT prophylaxis (Acute) Unresponsive episode (Acute) Acute bronchitis (Acute) Hypoxia (Acute) Acute CHF (Acute) COPD exacerbation (Acute) Chronic obstructive lung disease (Chronic) PFT'S 2009 FEV 1.15=59% continues to smoke Constipation (Chronic 11/14/17) Essential hypertension (Chronic 03/30/13) Lumbago (Chronic 05/10/13) Peripheral vascular disease (Acute) Jul 2014 [facility] [place] bifem [place] LEFT [place]IAC STENT [facility] [place] Polyp of colon (Acute) tubular adenoma Shoulder arthralgia (Chronic) Carotid stenosis, left (Acute) 50-69% stenosis 04/2022; complete obstruction right internal carotid. Anxiety about health (Acute) Grief reaction (Chronic) Spouse 08/13/21 passed Hand pain, left (Acute) CVA (cerebral vascular accident) (Chronic) Neuro est. between 04/2020-11/2021 Counseling regarding advanced directives and goals of care (Acute) Dilated bile duct (Acute ~02/2022) s/p ERCP [facility], 10mm dilation, no masses. Due repeat MRI in 10/2022. Left rotator cuff tear arthropathy (Chronic) 40 mg Depo-Medrol injection: 04/13/2022 Nail dystrophy (Acute) Left upper quadrant abdominal pain (Acute) Seborrheic dermatitis of scalp (Acute) Productive cough (Acute) History of tobacco abuse (Acute) Medical History Disorder of ear, left Diverticulitis of colon H/O SIGMOID COLECTOMY Perichondritis Smoker (10/19/16) Surgical History Extraction of cataract B/L 04/2013 Ligation of fallopian tube Rotator Cuff Repair RIGHT S/P partial colectomy Trigger Finger release WRIST/THUMB SURGERY LEFT THUMB LEFT WRIST RIGHT THUMB Family History Mother Diabetes Essential hypertension Stroke Father , 55 Heart disease Stroke Brother , 71 Complications from surgery No problems noted. Son No problems noted. Son No problems noted. Daughter No problems noted. Daughter No problems noted. Social History Smoking/Tobacco Use Status: Current every day Tobacco Type: cigarettes Smoking packs per day: 0.5 Smoking cigarettes per day: 10.0 Years smoked: 63 Smoking pack-years: 31.50 Tobacco: How many years used: 63 Quit status: considering quitting Second Hand Exposure: Yes Smoking risk assessment performed?: Yes Alcohol Intake: never Drug use: Rarely Counseling given: No Counseling provided: none Caregiver/Support person: No Household members: none Housing: house Number of Children: 4 Communication Needs: Hard of Hearing Do you need help understanding health information?: Rarely Pets and animals: Yes Pets and animals: dog(s) Sexually active: No Do you think of yourself as: straight/heterosexual Current gender identity: female What is your relationship status?: How often do you talk on the phone with friends or family?: three or more times per week Do you belong to any clubs or organized social groups?: no Panel score (0-1 are the most socially isolated patients): 1 What type of physical activity do you participate in: none Darlene/Hinduism: No preference Special darlene needs: No Seatbelt use: always Helmet use: No Drive intox or ride w/intox motor vehicle escort driver: No Do you feel safe at home: Yes Do you feel safe in your relationship?: Yes Visit Medication and Allergies Active Medications Generic Name Dose Route Start Last Admin Trade Name Freq PRN Reason Stop Dose Admin Acetaminophen 0 mg 10/06/22 23:37 Acetaminophen 325 Mg Tab PO Q4H PRN PRN Al Hydrox/Mg Hydrox/Simethicone 30 ml 10/06/22 23:37 Mylanta Suspension 30 Ml Cup PO Q2H PRN PRN Aspirin 81 mg 10/07/22 08:30 10/10/22 08:18 Aspirin E.C. 81 Mg Tabec PO 81 mg DAILY CAR Administration Budesonide/Formoterol Fumarate 2 puff 10/08/22 20:00 10/10/22 20:09 Budesonide/Formoterol 160/4.5 6 Gm 60 Puff Inh IH 2 puffs BID CAR Administration Clopidogrel Bisulfate 75 mg 10/08/22 08:30 10/10/22 08:18 Clopidogrel 75 Mg Tab PO 75 mg DAILY CAR Administration Albuterol Sulfate 100 mg/ 0 mg 10/08/22 14:00 Sodium Chloride 40 ml UPD DIRECTED CAR Device 1 each 10/06/22 21:00 Inhaler, Assist Device MC DIRECTED CAR Dimethicone/Zinc Oxide 0 gm 10/06/22 23:37 Sophie Protect Cream 142 Gm Tube TP PRN PRN Docusate Sodium 100 mg 10/06/22 23:37 Docusate Sodium 100 Mg Cap PO TID PRN PRN Doxycycline Hyclate 100 mg 10/08/22 20:00 10/10/22 19:19 Doxycycline Hyclate 100 Mg Cap PO 100 mg BID CAR Administration Fluticasone Propionate 0 gm 10/07/22 08:30 10/10/22 08:20 Fluticasone Nasal [place] 16 Gm Btl NS 1 spray DAILY CAR Administration Guaifenesin 600 mg 10/07/22 08:30 10/10/22 19:19 Guaifenesin 600 Mg Tabcr PO 600 mg BID CAR Administration Heparin Sodium (Porcine) 5,000 units 10/07/22 06:00 10/11/22 05:08 Heparin 5,000 Units/Ml Vial SC 5,000 units Q8H CAR Administration Sodium Chloride 500 mls @ 0 mls/hr 10/06/22 23:37 Saline 500ml Bag IV PRN PRN As Directed IV Miscellaneous Supplies 1 each 10/06/22 23:45 Iv Access IV DIRECTED [facility] Ipratropium Bendena 0.5 mg 10/07/22 08:30 10/10/22 20:13 Ipratropium 0.5 Mg/2.5 Ml Upd Vial UPD 0.5 mg QID CAR Administration Iron/Minerals/Multivitamins 1 tab 10/07/22 08:30 10/10/22 08:18 Multivitamin W/Minerals Tab PO 1 tab DAILY CAR Administration Levalbuterol HCl 1.25 mg 10/08/22 16:00 10/10/22 20:13 Levalbuterol 1.25 Mg/3 Ml Upd Vial UPD 1.25 mg QID CAR Administration Levalbuterol HCl 1.25 mg 10/08/22 14:46 10/08/22 19:58 Levalbuterol 1.25 Mg/3 Ml Upd Vial UPD 1.25 mg Q2H PRN PRN Administration Lorazepam 0.5 mg 10/08/22 18:00 10/09/22 09:27 Lorazepam 0.5 Mg Tab PO 0.5 mg TID PRN PRN Administration Magnesium Hydroxide 30 ml 10/06/22 23:37 Milk Of Magnesia 30 Ml Cup PO DAILY PRN PRN Mometasone Furoate 0 gm 10/07/22 08:30 10/10/22 19:20 Mometasone 0.1% 15 Gm Tube TP 1 applic BID CAR Administration Morphine Sulfate 1 mg 10/08/22 13:50 10/09/22 15:43 Morphine 2 Mg/Ml Syr IVP 1 mg Q1H PRN PRN Administration Nicotine 2 mg 10/07/22 01:26 Nicotine 2 Mg Gum CH Q2H PRN PRN Nystatin 500,000 units 10/09/22 08:30 10/10/22 19:19 Nystatin 080644 Units/5 Ml Susp 5ml Cup PO 500,000 units TID CAR Administration Pantoprazole Sodium 40 mg 10/07/22 07:30 10/10/22 08:18 Pantoprazole 40 Mg Tabcr PO 40 mg DAILY@0730 CAR Administration Potassium Chloride 20 meq 10/08/22 20:00 10/10/22 19:19 Potassium Chloride 10 Meq Capcr PO 20 meq TID CAR Administration Prednisone 60 mg 10/09/22 08:30 10/10/22 09:42 Prednisone 20 Mg Tab PO 60 mg DAILY CAR Administration Rosuvastatin Calcium 40 mg 10/07/22 08:30 10/10/22 08:17 Rosuvastatin 10 Mg Tab PO 40 mg DAILY CAR Administration Sertraline HCl 100 mg 10/07/22 08:30 10/10/22 08:18 Sertraline 100 Mg Tab PO 100 mg DAILY CAR Administration Sodium Chloride 0 ml 10/06/22 23:37 10/09/22 15:43 Normal Saline Flush 10 Ml Syr IVP 10 ml PRN PRN Administration Tiotropium Bendena 2 puff 10/08/22 14:50 10/10/22 09:15 Tiotropium Bendena-Respimat 10 Puff Inh IH 2 puffs DAILY CAR Administration Tizanidine HCl 4 mg 10/07/22 08:30 10/10/22 19:19 Tizanidine 4 Mg Tablet PO 4 mg BID CAR Administration Trimethoprim/Sulfamethoxazole 1 tab 10/09/22 08:30 10/10/22 08:29 Sulfameth/Trimeth Ds Tab PO 1 tab DAILY CAR Administration Allergies baclofen Adverse Reaction (Intermediate, Verified 10/06/22 14:13) mental status changes Exam Narrative Exam Narrative: Gen: NAD, normal respiratory effort, well-nourished HENT: PERRL Chest: No respiratory distress, normal appearance of chest, clear to auscultation bilaterally, no crackles or wheezes, normal inspiratory effort Heart: regular rate and rhythym, no murmurs, rubs or gallops Abdomen: Non-distended, soft, non tender Extremities: No clubbing, edema, cyanosis, rashes Neuro: AAOx3 , non focal Psych: cooperative, appropriate mental affect Results Last Vital Signs Temp 37.1 C 10/11/22 06:34 Pulse 58 L 10/11/22 06:34 Resp 20 10/11/22 06:34 BP 157/71 H 10/11/22 06:34 Pulse Ox 92 10/11/22 06:34 Labs 10/10/22 06:10 10/10/22 06:10 Labs: Laboratory Results - last 24 hr 10/10/22 10/10/22 05:30 06:10 Sodium 142 Potassium 4.0 Chloride 108 H Carbon Dioxide 27.2 Anion Gap 6.8 BUN 35 H Creatinine 1.6 H Est GFR (CKD-EPI 2020) 32.60 Glucose 125 H Calcium 9.4 C-Reactive Protein 0.05 NT-Pro-B Natriuret Pep 2006 H Stl C.difficile Tox PCR Negative
[2022-10-11 07:17] LABS: Anion Gap 10.5 mmol/L (3-11); BUN 46 mg/dL (7-18); CO2 27.5 mmol/L (21.0-32.0); CREATININE 1.9 mg/dL (0.55-1.02); Chloride 103 mmol/L (98-107); Estimated GFR 26.53 (mL/min/1.73m2); Glucose 89 mg/dL (74-106); Potassium 3.4 mmol/L (3.5-5.1); Sodium 141 mmol/L (136-145)
[2022-10-11 07:27] LABS: NT-proBNP 1663 pg/mL (<300); PHOSPHORUS 3.3 mg/dL (2.6-4.7)
[2022-10-11] MEDS: Rosuvastatin 10 MG TAB 40 MG PO (07:32)
[2022-10-11] MEDS: Multivitamin w/Minerals TAB 1 TAB PO (07:32)
[2022-10-11] MEDS: guaiFENesin 600 MG TABCR PO ×2 (07:33→19:46)
[2022-10-11] MEDS: Doxycycline Hyclate 100 MG CAP PO ×2 (07:33→19:46)
[2022-10-11] MEDS: Aspirin E.C. 81 MG TABEC PO (07:33)
[2022-10-11] MEDS: Clopidogrel 75 MG TAB PO (07:33)
[2022-10-11] MEDS: Potassium Chloride 10 MEQ CAPCR 20 MEQ PO ×3 (07:33→19:46)
[2022-10-11] MEDS: Sertraline 100 MG TAB PO (07:33)
[2022-10-11] MEDS: Pantoprazole 40 MG TABCR PO (07:33)
[2022-10-11] MEDS: Nystatin 500000 UNITS/5 ML SUSP 5ML CUP PO ×3 (07:33→19:46)
[2022-10-11] MEDS: tiZANidine 4 MG TABLET PO ×2 (07:33→19:46)
[2022-10-11 07:35] LABS: Magnesium 1.9 mg/dL (1.8-2.4)
[2022-10-11] MEDS: Fluticasone NASAL SPRAY 16 GM BTL NS (07:35)
--- NOTE | 2022-10-11 07:38 | NUR.NOTE ---
Nursing Note: Accessed patient chart to determine how many EKG orders were in the chart from the ED. There was an outstanding EKG in ordered status. There are no EKG's in the [facility] system that are outstanding. EKG order was deleted.
[2022-10-11] MEDS: predniSONE 20 MG TAB 40 MG PO (07:46)
--- NOTE | 2022-10-11 08:27 | PGE_ITS ---
Date of Service Date of service: 10/11/22 Time of Service: 08:27 Assessment and Plan Assessment and plan (1) Ischemic cerebrovascular accident (CVA) due to atherosclerosis of large extracranial artery: Status: Acute Assessment and plan: s/p acute CVA of right temporal lobe in watershed area of prior CVA due to hypotension leading to ischemia in area already compromised by chronic occlusion of right ICA. right side is dependent on her left cerebrovascular flow. She was begun on Plavix and ASA and already is on rosuvatatin w/ appropriately low LDL of 37 and total cholesterol 126. continue DAPT for at least 3 months, maybe longer since she was already on ASA as OP. per her daughter, the patient has another adult child who had CVA and who was resistant to Plavix. Family is unclear as to whether or not this member was tested for genetic resistance or not. As Kathleen had not been on Plavix at the time of this stroke and her CVA was associated w/ low BP, I would not pursue testing at this time nor would I change her to Prasugel. I had put her back on telemetry out of concern for one of her EKG looking like afib however her rhythm has been sinus over the past 24 hours. I will dc her tele to make her more comfortable as it has been stable Professional time spent interviewing and examining patient, discussion of goals of care with hospital team (care management, nursing and consulting professionals) was 30 minutes. (2) COPD exacerbation: Status: Acute Assessment and plan: Patient's care discussed w/ Dr. Mixon. She has made recommendations to taper her prednisone to 40 mg x 5 day, 30 mg/d x 3d, 20 mg/d x3d, 10 mg/dx 3d, 5 mg/d x3d; decrease her Symbicort from 160 to 80, and change her Spiriva to her home Incruse, and decrease nebulizers to prn. Patient will need home nebulizer on discharge. Continue doxycycline x 5 days. Today is day #3 of her doxycycline (3) Acute bronchitis: Status: Acute Assessment and plan: as above (4) Elevated troponin: Status: Acute Assessment and plan: demand ischemia. No evidence of transmural MT. Echocardiogram demonstrated: Technically difficult study, poor parasternal views.? Apical views are adequate The left ventricle is moderately hypertrophied.? Cavity is small.? EF is 55%.? Wall motion is normal Right ventricular size and systolic function appears normal Left atrium is moderately dilated.? Right atrial size is normal Aortic valve is calcified without stenosis or regurgitation Severe mitral annular calcification.? Mild mitral regurgitation Normal tricuspid valve with mild regurgitation.? Estimated right ventricular systolic pressure is 55 mmHg Patient was diuresed and since being given diuretics her dyspnea has improved. However her BUN and creatinine have risen to 46 and 1.9. I think that she is euvolemic at this point based on her physical exam (clearing lungs, no JVD and no pedal/leg edema). I will withold diuretics at this point, repeat her BMP tomorrow. (5) Pulmonary hypertension: Status: Acute Assessment and plan: estimated RVSP 55 mm on her echo, but RV reportedly normal size and function, only mild TR (6) JANNA (acute kidney injury): Status: Acute Assessment and plan: worsening azotemia d/t diuresis. diuretics stopped. monitor renal function. She probably will need some diuretics upon discharge to keep her right sided pressures lower. Dr. Mixon plans to repeat echo at later date when she is euvolemic. (7) DVT prophylaxis: Status: Acute Assessment and plan: SC heparin (8) Discharge planning issues: Status: Acute Assessment and plan: DNR/DNI still needs hospitalization d/t her resp. status. Subjective Subjective Interval history since last seen: Patient is breathing much better. She was not wearing her oxygen when I saw her this morning. She just finished breakfast and actually ate very well. Her daughter was with her. I discussed discharge plans w/ the patient and her daughter. The patient lives alone but I feel (and her daughter agrees) that she needs short term rehab placement before attempting to return home. Exam Narrative Exam Narrative: Kathleen is sitting up in her chair visiting w/ her daughter, she is not dyspneic w/ conversation Lungs: markedly improved air flow, some end expiratory wheezes but much clearer than last week Heart: RRR, soft systolic murmur over LLSB Abdomen: soft, nontender Legs: varicose veins but no edema Objective Last Vital Signs Temp 37.1 C 10/11/22 06:34 Pulse 58 L 10/11/22 06:34 Resp 20 10/11/22 06:34 BP 157/71 H 10/11/22 06:34 Pulse Ox 92 10/11/22 06:34 Laboratory Results - last 24 hr 10/10/22 10/11/22 10/11/22 05:30 06:32 06:32 Sodium 141 Potassium 3.4 L Chloride 103 Carbon Dioxide 27.5 Anion Gap 10.5 BUN 46 H Creatinine 1.9 H Est GFR (CKD-EPI 2020) 26.53 Glucose 89 Calcium 10.0 Phosphorus 3.3 Magnesium 1.9 NT-Pro-B Natriuret Pep 1663 H Stl C.difficile Tox PCR Negative Time Spent with Patient Time Spent with Patient: 25-34 minutes Time was spent: preparing to see the patient(eg.review tests), ordering medications,tests, procedures, referring, communicating with other health wound care center consultant (Dr. Mixon), indepentently interpreting results, counseling the patient and care coordination
[2022-10-11] MEDS: Budesonide/Formoterol 80/4.5 6.9 GM 60 PUFF INH IH ×2 (08:50→19:40)
[2022-10-11] MEDS: Umeclidinium 7 CAP INHALER 1 CAP IH (08:51)
--- NOTE | 2022-10-11 08:57 | OT.INTREAT ---
Occupational Therapy Notes Occupational Therapy Inpatient Treatment Note Date: 10/11/22 PRECAUTIONS: Fall, standard, DNR/DNI SUBJECTIVE: Pt was sitting in chair when OT arrived. She still has tape on her fingers. She has increased tone in her (L) UE and her tremor is more prevalent today and she has restricted extension of her digits. Manual Therapy [id number]: OT performed AP mobs to pts digits at MP, IP ad DIP joints and throughout wrist with increased tone noted. Then OT passively stretched pts wrist into flexion and extension with restriction noted in mobility. Post mobilization, OT taped pts wrist and digit with Rock tape and OT will continue to monitor this. Goal is to prevent digit contracture moving forward. Plan is to continue with ROM and extension brace at night. TREATMENT CODES/TIME: [id number], 15 minutes Susan Sandhu OTR/[facility]
--- NOTE | 2022-10-11 14:40 | PT.INTREAT ---
PT Notes Visit Reasons: Acute Exacerbation of COPD,Acute CHF,Hypotention Inpatient Physical Therapy Treatment Note [facility] Date: 10/11/22 Precautions: Fall, activity as tolerated SUBJECTIVE: Kathleen is agreeable to PT. Indicates need to use commode at start of session. Patient is on room air. OBJECTIVE: Pain: None BED MOBILITY/TRANSFERS Sit-supine: SBA Sit-stand: Min A Stand-sit: CGA - poor control to lower GAIT Assistive Device: Eleazar-walker on right Weight bearing: Assist: Full Distance: CGA Deviation: Slow mobility, unsteady on feet, weight shift to right VITALS: HR elevated with exertion. About 108bpm at rest after activity, spikes to 120's with activity THEREX: Seated knee extension x10 ea Seated march x10 ea Supine SLR x10 Supine bridge x10 Attempts at scooting up in bed ASSESSMENT: Unsteady with gait. Does a fair amount on her own, but this is not her prior baseline. Commode height lowered to better accommodate patient. She needed assist with personal hygiene post void. PLAN: Continue with general conditioning and gait training for improved mobility and activity tolerance. TREATMENT CODE/TIME: [id number]; 2:08-2:37 (29 minutes)
--- NOTE | 2022-10-11 15:28 | PHA.REVIEW2 ---
Pharmacy Admission Review - Admission Clinical Review (Last Reviewed 09/08/22 @ 08:52 by Marianela Lucia RN) Pulmonary nodules/lesions, multiple (Acute) Pulmonary hypertension (Acute) Ischemic cerebrovascular accident (CVA) due to atherosclerosis of large extracranial artery (Acute) Elevated troponin (Acute) Left hemiparesis (Acute) 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 occlusion (Acute) Hypotension (Acute) JANNA (acute kidney injury) (Acute) Discharge planning issues (Acute) DVT prophylaxis (Acute) Unresponsive episode (Acute) Acute bronchitis (Acute) Hypoxia (Acute) Acute CHF (Acute) COPD exacerbation (Acute) Carotid stenosis, left (Acute) baclofen Adverse Reaction (Intermediate, Verified 10/06/22 14:13) mental status changes Resuscitation Status DNR/DNI Height 4 ft 10 in Weight 53 kg - Renal Dosing Renal Dosing: BUN 46 mg/dL (7-18) H 10/11/22 06:32 Creatinine 1.9 mg/dL (0.55-1.02) H 10/11/22 06:32 Medications needing adjustments: Reviewed (eCrCl 19.5 ml/min, current orders appropriately dosed) - Anticoagulation Anticoagulation: Hgb 10.2 g/dL (11.2-15.7) L 10/10/22 06:10 Hct 32.3 % (36.0-46.0) L 10/10/22 06:10 Plt Count 153 10^3/uL (130-400) 10/10/22 06:10 Creatinine 1.9 mg/dL (0.55-1.02) H 10/11/22 06:32 DVT Prophylaxis: Reviewed Medications: Heparin - Opiate Usage Evaluate Pain Scale/Pains Meds: N/A - Relevant Labs Sodium 141 mmol/L (136-145) 10/11/22 06:32 Potassium 3.4 mmol/L (3.5-5.1) L 10/11/22 06:32 Chloride 103 mmol/L (98-107) 10/11/22 06:32 Phosphorus 3.3 mg/dL (2.6-4.7) 10/11/22 06:32 Magnesium 1.9 mg/dL (1.8-2.4) 10/11/22 06:32 C-Reactive Protein 0.05 mg/dL (0.0-0.3) 10/10/22 06:10 Electrolytes, C-Reactive P, ESR: Reviewed - DM Control DM Control: Glucose 89 mg/dL (74-106) 10/11/22 06:32 Hemoglobin A1c 6.9 % (<5.7) H 10/08/22 06:15 DM Control: N/A - Cardiac Review Cardiac Review: Troponin I 247 ng/L (<or=60) H* 10/08/22 14:05 NT-Pro-B Natriuret Pep 1663 pg/mL (<300) H 10/11/22 06:32 BP, HR, EF%: Reviewed - Qtc Review QTc: Reviewed If Elevated, List meds needing intervention: QTc 448 on admission - IV to PO Switch IV Medications: Reviewed - Home Meds Home Med List reviewed: Intervened Relevent Home Meds Not ordered & why?: confirmed all meds; all ordered as prescribed - Current meds Current Medication Order Review: Reviewed
[2022-10-11 15:57] LABS: Mycoplasma Pneumoniae PCR Negative; Specimen source Sputum
--- NOTE | 2022-10-11 16:08 | PDOC.CMPRO ---
- If Service Date Differs Date of service: 10/11/22 Time of Service: 16:08 Care Management Progress Note S/O: Referrals faxed to [facility], [facility], [facility] and [facility]; awaiting bed offer for SNF. CM continues to follow. A: 81 year old female admitted to [facility] 10/06/22 for acute exacerbatino of COPD, acute CHF, hypotension P: Anticipate Kathleen will return home with new HH services vs SNF for short term rehab. PT is currently recommending SNF. She will transport via [facility] vs facility w/c van. She will follow up with her PCP and discharge plan of care. CM will continue to follow.
--- NOTE | 2022-10-11 17:33 | PCNE_ITS ---
Date of service: 10/11/22 Time of Service: 14:00 History of Present Illness Narrative: Ms. Wang is a 81 y/o currently inpatient at [facility] 2/2 COPD exacerbation; PMHx sig for h/o CVA w/L hemiparesis, carotid stenosis, CHF, HTN, PVD, HLD, diverticulitis Hospital course: admitted 09/23-09/27 COPD vs bronchitis, returned to [facility] ED on / w/CC fatigue and GUZMAN, admitted ongoing monitoring/management for COPD exacerbation and JANNA; on day 3 of 5 days doxy; pulmonary consult today recommend taper plan for prednisone and other meds (see their note); JANNA improving, not resolved; CVA recommendations for 3 mos of DAPT w/ASA and Plavix; plan for discharge to SNF, referrals pending per staff: Kathleen is requiring assistance with all ADLs, eating requires set up, assistance with dressing, toileting, bathing, denies incontinence, toileting with assistance. Diarrheal symptoms continue, however these are improved, suspected related to antibiotics. CVA remains stable, left-sided weakness, this is an old CVA, continues to work with therapy. Family has been visiting in and out, appears to be very supportive, not back to baseline at this time. Is on day 2 without oxygen, oxygen saturations remaining in the 90s Kathleen reports that she does feel better, agrees that she is not back to basel ine, agreeable to discharge to SNF. She is quite hesitant, worried, wants to remain home, however agrees that she does need increased support at this time and would benefit from ongoing rehabilitation. She is a chronic worrier, and would do best if she had the plan outlined, especially with routine at rehab establish for her (including general schedule/timeline of a day at SNF). She is doing well breathing on room air, is able to self soothe when she feels dyspneic. Reports declined appetite, this has been consistent. Feels well supported by her children, Alexia daughter is healthcare agent, son Chandu has been living with her for few months, assisting with instrumental ADLs, Leticia daughter also continues to visit. Neighbor is close with her as well. Followed by palliative care Dr. Kelley, would like to have more frequent palliative visit Assessment and Plan Assessment and plan (1) COPD exacerbation: Status: Resolved Assessment and plan: per pulm: taper her prednisone to 40 mg x 5 day, 30 mg/d x 3d, 20 mg/d x3d, 10 mg/dx 3d, 5 mg/d x3d; decrease her Symbicort from 160 to 80, and change her Spiriva to her home Incruse, and decrease nebulizers to prn. Patient will need home nebulizer on discharge. Continue doxycycline x 5 days. 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 Wang to outline a daily expected schedule at SNF, does nto need to be detailed, bu tto give her an idea of day to day a ctivities/function 0 worries more w/unexpected, is able to self-soothe (5) Hand pain, left: (6) Palliative care encounter: Status: Resolved Assessment and plan: PC to continue following through outpatient, last seen outpatient 09/08/22 to be scheduled (7) Diarrhea: Status: Resolved Assessment and plan: improving, suspected r/t antibiotics (8) Advance care planning: Status: Deleted Assessment and plan: reviewed SNF recommendations, process for rehab, ability to return home once feel capable - reviewed current documented preferences, pt not able to have prolonged con versation regarding this today; per previous PC visit, preferences for FULL code; today she says if CPR is going to break my ribs, I don't it, preference for no BiPAP as able, would not want to be kept alive on machines, review of AD demonstrates a DNR/I style care preference - need for f/u to review/update COSLT as needed (9) Discharge planning issues: Status: Deleted Assessment and plan: SNF referrals placed, PT recommends SNF, pt agrees pending placement Review of Systems Narrative: as per HPI PFSH All Active Problems Pulmonary nodules/lesions, multiple (Acute) Pulmonary hypertension (Acute) Ischemic cerebrovascular accident (CVA) due to atherosclerosis of large extracranial artery (Acute) Left hemiparesis (Acute) 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 occlusion (Acute) Chronic obstructive lung disease (Chronic) PFT'S 2009 FEV 1.15=59% continues to smoke Constipation (Chronic 11/14/17) Essential hypertension (Chronic 03/30/13) Lumbago (Chronic 05/10/13) Peripheral vascular disease (Acute) Jul 2014 [facility] [place] aorto bifem bypass LEFT ILIAC STENT [facility] [place] 03/2010 Polyp of colon (Acute) tubular adenoma Shoulder arthralgia (Chronic) Carotid stenosis, left (Acute) 50-69% stenosis 04/2022; complete obstruction right internal carotid. Grief reaction (Chronic) Spouse 08/13/21 passed CVA (cerebral vascular accident) (Chronic) Neuro est. between 04/2020-11/2021 Counseling regarding advanced directives and goals of care (Acute) Dilated bile duct (Acute ~02/2022) s/p ERCP [facility], 10mm dilation, no masses. Due repeat MRI in 10/2022. Left rotator cuff tear arthropathy (Chronic) 40 mg Depo-Medrol injection: 04/13/2022 Nail dystrophy (Acute) Left upper quadrant abdominal pain (Acute) Seborrheic dermatitis of scalp (Acute) Productive cough (Acute) History of tobacco abuse (Acute) Medical History Disorder of ear, left Diverticulitis of colon H/O SIGMOID COLECTOMY Hyperlipidemia Perichondritis Seizures Smoker (10/19/16) Surgical History Extraction of cataract B/L 04/2013 Ligation of fallopian tube Rotator Cuff Repair RIGHT S/P partial colectomy Trigger Finger release WRIST/THUMB SURGERY LEFT THUMB LEFT WRIST RIGHT THUMB Family History Mother Diabetes Essential hypertension Stroke Father , 55 Heart disease Stroke Brother , 71 Complications from surgery No problems noted. Son No problems noted. Son No problems noted. Daughter No problems noted. Daughter No problems noted. Social History Smoking/Tobacco Use Status: Current every day Tobacco Type: cigarettes Smoking packs per day: 0.5 Smoking cigarettes per day: 10.0 Years smoked: 63 Smoking pack-years: 31.50 Tobacco: How many years used: 63 Quit status: considering quitting Second Hand Exposure: Yes Smoking risk assessment performed?: Yes Alcohol Intake: never Drug use: Rarely Counseling given: No Counseling provided: none Caregiver/Support person: No Household members: none Housing: house Number of Children: 4 Communication Needs: Hard of Hearing Do you need help understanding health information?: Rarely Pets and animals: Yes Pets and animals: dog(s) Sexually active: No Do you think of yourself as: straight/heterosexual Current gender identity: female What is your relationship status?: How often do you talk on the phone with friends or family?: three or more times per week Do you belong to any clubs or organized social groups?: no Panel score (0-1 are the most socially isolated patients): 1 What type of physical activity do you participate in: none Darlene/Rastafari: No preference Special darlene needs: No Seatbelt use: always Helmet use: No Drive intox or ride w/intox delivery motorcycle driver: No Do you feel safe at home: Yes Do you feel safe in your relationship?: Yes Exam Narrative Exam Narrative: General: lying in bed throughout visit, AAOx3 HEENT: normocephalic, atraumatic Resp: tachypnic w/when upset intermittent throughout, able to self soothe and resume normal respiratory effort; wet cough, no audible wheezes, speaks full sentences when not upset Psych: cooperative, thought process normal, cries intermittent when discussing SNF placement, self-soothes; speech clear; insight/judgment fair Results Last Vital Signs Temp 98.8 F 10/11/22 15:01 Pulse 80 10/11/22 15:01 Resp 20 10/11/22 15:01 BP 125/55 L 10/11/22 15:01 Pulse Ox 93 10/11/22 15:01 Labs 10/10/22 06:10 10/11/22 06:32 Labs: Laboratory Results - last 24 hr 10/07/22 10/11/22 10/11/22 10:45 06:32 06:32 Sodium 141 Potassium 3.4 L Chloride 103 Carbon Dioxide 27.5 Anion Gap 10.5 BUN 46 H Creatinine 1.9 H Est GFR (CKD-EPI 2020) 26.53 Glucose 89 Calcium 10.0 Phosphorus 3.3 Magnesium 1.9 NT-Pro-B Natriuret Pep 1663 H M. pneumoniae Source Sputum M. pneumoniae (PCR) Negative
[2022-10-12] VITALS (7 sets, daily range): BP systolic 104–157; BP diastolic 58–64; PULSE 62–83; RESP 17–93; TEMP 36.5–37.3; O2SAT 91–95
[2022-10-12] MEDS: Heparin 5,000 UNITS/ML VIAL 5000 UNITS SC (05:08)
[2022-10-12 06:30] LABS: Anion Gap 8.3 mmol/L (3-11); BUN 56 mg/dL (7-18); CO2 25.7 mmol/L (21.0-32.0); CREATININE 1.8 mg/dL (0.55-1.02); Calcium 10.1 mg/dL (8.5-10.1); Chloride 109 mmol/L (98-107); Estimated GFR 28.13 (mL/min/1.73m2); Glucose 91 mg/dL (74-106); Sodium 143 mmol/L (136-145)
[2022-10-12] MEDS: Umeclidinium 7 CAP INHALER 1 CAP IH (07:28)
[2022-10-12] MEDS: Budesonide/Formoterol 80/4.5 6.9 GM 60 PUFF INH IH ×2 (07:30→19:58)
--- NOTE | 2022-10-12 07:32 | W.PULMPROG ---
Assessment and Plan Assessment and plan (1) COPD exacerbation: Status: Acute (2) Pulmonary nodules/lesions, multiple: Status: Acute (3) Pulmonary hypertension: Status: Acute Assessment and plan: This is a 82 yo with CHF, CVA and COPD, whom I am seeing for a COPD exacerbation. She remains on room air currently and is doing very well. If she continues to have exacerbations, I will plan on starting her on roflumilast or chronic azithromycin. She would also benefit from a home nebulizer and Duonebs. 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 The PAP's may be more elevated than her baseline in the setting of volume overload, so I will plan on repeating the echo as an outpatient. COPD Exacerbation - prednisone to 40mg for 5 days, 30mg for 3 days, 20mg for 3 days, 10mg for 3 days, 5mg for 3 days - Symbicort 80 - continue home Incruse - make her nebulizers prn - recommend she be discharged with home nebulizers - agree with doxycycline for a total course of 5 days - I will see her in follow up as an outpatient Pulmonary Hypertension, group 2 and 3 - optimization of pulmonary and cardiac diseases - I will repeat echo as an outpatient to reassess PAP's at euvolemia Pulmonary nodules - stable, will follow up with repeat CT in 1 year General Date Of Service Date of service: 10/12/22 Time of Service: 07:32 Reason for Consult: COPD exacerbation Pulmonary hypertension Subjective Note Note: Kathleen is doing well today. She is on room air and awaiting rehab placement. It is her 82th birthday today and is in good spirits. Exam Narrative Exam Narrative: Gen:?NAD, normal respiratory effort, well-nourished HENT:?PERRL Chest:?No respiratory distress, normal appearance of chest, clear to auscultation bilaterally, no crackles or wheezes, normal inspiratory effort Heart:?regular rate and rhythym, no murmurs, rubs or gallops Abdomen:?Non-distended, soft, non tender Extremities:?No clubbing, edema, cyanosis, rashes Neuro:?AAOx3 , non focal Psych:?cooperative, appropriate mental affect Objective Last Vital Signs Temp 36.8 C 10/12/22 03:00 Pulse 66 10/12/22 03:00 Resp 20 10/12/22 03:00 BP 149/62 H 10/12/22 03:00 Pulse Ox 91 L 10/12/22 03:00 Laboratory Results - last 24 hr 10/07/22 10/11/22 10/12/22 10:45 06:32 05:50 Sodium 143 Potassium 4.0 Chloride 109 H Carbon Dioxide 25.7 Anion Gap 8.3 BUN 56 H Creatinine 1.8 H Est GFR (CKD-EPI 2020) 28.13 Glucose 91 Calcium 10.1 Phosphorus 3.3 Magnesium 1.9 NT-Pro-B Natriuret Pep 1663 H M. pneumoniae Source Sputum M. pneumoniae (PCR) Negative Results Medications Medications: Active Medications Generic Name Dose Route Start Last Admin Trade Name Freq PRN Reason Stop Dose Admin Acetaminophen 0 mg 10/06/22 23:37 Acetaminophen 325 Mg Tab PO Q4H PRN PRN Al Hydrox/Mg Hydrox/Simethicone 30 ml 10/06/22 23:37 Mylanta Suspension 30 Ml Cup PO Q2H PRN PRN Aspirin 81 mg 10/07/22 08:30 10/11/22 07:33 Aspirin E.C. 81 Mg Tabec PO 81 mg DAILY CAR Administration Budesonide/Formoterol Fumarate 2 puff 10/11/22 08:30 10/12/22 07:30 Budesonide/Formoterol 80/4.5 6.9 Gm 60 Puff Inh IH 2 puffs BID CAR Administration Clopidogrel Bisulfate 75 mg 10/08/22 08:30 10/11/22 07:33 Clopidogrel 75 Mg Tab PO [address] [facility] Administration Device 1 each 10/11/22 08:00 Inhaler, Assist Device MC DIRECTED [facility] Dimethicone/Zinc Oxide 0 gm 10/06/22 23:37 Sophie Protect Cream 142 Gm Tube TP PRN PRN Docusate Sodium 100 mg 10/06/22 23:37 Docusate Sodium 100 Mg Cap PO TID PRN PRN Doxycycline Hyclate 100 mg 10/08/22 20:00 10/11/22 19:46 Doxycycline Hyclate 100 Mg Cap PO 10/13/22 09:00 100 mg BID CAR Administration Fluticasone Propionate 0 gm 10/07/22 08:30 10/11/22 07:35 Fluticasone Nasal [place] 16 Gm Btl NS 1 spray DAILY CAR Administration Guaifenesin 600 mg 10/07/22 08:30 10/11/22 19:46 Guaifenesin 600 Mg Tabcr PO 600 mg BID CAR Administration Heparin Sodium (Porcine) 5,000 units 10/07/22 06:00 10/12/22 05:08 Heparin 5,000 Units/Ml Vial SC 5,000 units Q8H CAR Administration Sodium Chloride 500 mls @ 0 mls/hr 10/06/22 23:37 Saline 500ml Bag IV PRN PRN As Directed IV Miscellaneous Supplies 1 each 10/06/22 23:45 Iv Access IV DIRECTED [facility] Ipratropium [place] 0.5 mg 10/11/22 07:20 Ipratropium 0.5 Mg/2.5 Ml Upd Vial UPD Q2H PRN PRN Iron/Minerals/Multivitamins 1 tab 10/07/22 08:30 10/11/22 07:32 Multivitamin W/Minerals Tab PO 1 tab DAILY CAR Administration Levalbuterol HCl 1.25 mg 10/08/22 14:46 10/08/22 19:58 Levalbuterol 1.25 Mg/3 Ml Upd Vial UPD 1.25 mg Q2H PRN PRN Administration Lorazepam 0.5 mg 10/08/22 18:00 10/09/22 09:27 Lorazepam 0.5 Mg Tab PO 0.5 mg TID PRN PRN Administration Magnesium Hydroxide 30 ml 10/06/22 23:37 Milk Of Magnesia 30 Ml Cup PO DAILY PRN PRN Mometasone Furoate 0 gm 10/07/22 08:30 10/11/22 21:11 Mometasone 0.1% 15 Gm Tube TP 1 applic BID CAR Administration Morphine Sulfate 1 mg 10/08/22 13:50 10/09/22 15:43 Morphine 2 Mg/Ml Syr IVP 1 mg Q1H PRN PRN Administration Nicotine 2 mg 10/07/22 01:26 Nicotine 2 Mg Gum CH Q2H PRN PRN Nystatin 500,000 units 10/09/22 08:30 10/11/22 19:46 Nystatin 724395 Units/5 Ml Susp 5ml Cup PO 500,000 units TID CAR Administration Pantoprazole Sodium 40 mg 10/07/22 07:30 10/11/22 07:33 Pantoprazole 40 Mg Tabcr PO 40 mg DAILY@0730 CAR Administration Prednisone 40 mg 10/11/22 08:30 10/11/22 07:46 Prednisone 20 Mg Tab PO 10/16/22 08:29 40 mg DAILY CAR Administration Rosuvastatin Calcium 40 mg 10/07/22 08:30 10/11/22 07:32 Rosuvastatin 10 Mg Tab PO 40 mg DAILY CAR Administration Sertraline HCl 100 mg 10/07/22 08:30 10/11/22 07:33 Sertraline 100 Mg Tab PO 100 mg DAILY CAR Administration Sodium Chloride 0 ml 10/06/22 23:37 10/09/22 15:43 Normal Saline Flush 10 Ml Syr IVP 10 ml PRN PRN Administration Tizanidine HCl 4 mg 10/07/22 08:30 10/11/22 19:46 Tizanidine 4 Mg Tablet PO 4 mg BID CAR Administration Umeclidinium [place] 1 cap 10/11/22 08:30 10/12/22 07:28 Umeclidinium 7 Cap Inhaler IH 1 inh DAILY CAR Administration Allergies baclofen Adverse Reaction (Intermediate, Verified 10/06/22 14:13) mental status changes Labs 10/10/22 06:10 10/12/22 05:50 Labs: 10/07/22 00:10 Blood Blood Culture - Final NO GROWTH 120 HOURS 10/06/22 21:30 Blood Blood Culture - Final NO GROWTH 120 HOURS 10/07/22 22:45 Sputum Sputum Culture - Final 10/07/22 22:45 Sputum Gram Stain - Final 10/07/22 05:25 Nose MRSA Screen - Final Laboratory Tests Range/Units 10/06/22 10/06/22 10/06/22 21:00 21:00 21:00 WBC (4.4-10.8) 10^3/uL 8.06 RBC (3.93-5.22) 10^6/uL 3.48 L Hgb (11.2-15.7) g/dL 10.6 L Hct (36.0-46.0) % 33.5 L MCV (80-95) fL 96 H MCH (27.0-33.0) pg 30.5 MCHC (32.0-36.0) % 31.6 L RDW (11.7-14.6) % 14.6 Plt Count (130-400) 10^3/uL 142 MPV (8.0-11.0) fL 10.8 Immature Gran % 0.4 Neutrophils % 53.5 Lymphocytes % 29.0 Monocytes % 16.5 Eosinophils % 0.5 Basophils % 0.1 Nucleated RBC % (0.0-0.3) % 0.0 Absolute Neutrophils (1.2-6.7) 10^3/uL 4.31 Absolute Lymphocytes (1.2-3.4) 10^3/uL 2.34 Absolute Monocytes (0.1-0.8) 10^3/uL 1.33 H Absolute Eosinophils (0.0-0.7) 10^3/uL 0.04 Absolute Basophils (0.0-0.2) 10^3/uL 0.01 D-Dimer (<500) ng/mlFEU VBG pH (7.31-7.41) VBG pCO2 (41-51) mmHg VBG pO2 mmHg VBG HCO3 (23-28) mmol/L VBG Total CO2 (24-29) mmol/L VBG O2 Saturation % VBG Base Excess (-2-3) mmol/L VBG Lactate (0.6-1.4) mmol/L 2.0 H Sodium (136-145) mmol/L 139 Potassium (3.5-5.1) mmol/L 5.3 H Chloride (98-107) mmol/L 106 Carbon Dioxide (21.0-32.0) mmol/L 23.8 Anion Gap (3-11) mmol/L 9.2 BUN (7-18) mg/dL 42 H Creatinine (0.55-1.02) mg/dL 2.0 H Est GFR (CKD-EPI 2020) (mL/min/1.73m2) 24.94 Glucose (74-106) mg/dL 184 H Hemoglobin A1c (<5.7) % Calcium (8.5-10.1) mg/dL 8.4 L Phosphorus (2.6-4.7) mg/dL Magnesium (1.8-2.4) mg/dL Total Bilirubin (0.2-1.0) mg/dL 0.3 AST (15-37) U/L 59 H ALT (14-59) U/L 79 H Alkaline Phosphatase (46-116) U/L 115 Creatine Kinase (26-192) U/L Troponin I (<or=60) ng/L C-Reactive Protein (0.0-0.3) mg/dL NT-Pro-B Natriuret Pep (<300) pg/mL Total Protein (6.4-8.2) g/dL 5.7 L Albumin (3.4-5.0) g/dL 2.8 L Triglycerides (<150) mg/dL Total Cholesterol (<200) mg/dL LDL Cholesterol, Calc (<100) mg/dL HDL Cholesterol (40-60) mg/dL Procalcitonin ng/mL Urine Color (Yellow) Urine Clarity (Clear) Urine pH (5-8) Ur Specific [place] (1.005-1.025) Urine Protein (Negative) mg/dL Urine Ketones (Negative) mg/dL Urine Blood (Negative) Urine Nitrite (Negative) Urine Bilirubin (Negative) Urine Urobilinogen (Up to 0.2) mg/dL Ur Leukocyte Esterase (Negative) Ur Random Creatinine mg/dL Urine Urea Nitrogen (See Note) mg/dL Urine Glucose (Negative) mg/dL Stl C.difficile Tox PCR (Negative) COVID-19 Source SARS-CoV-2 (PCR) (Negative) Influenza Type A (PCR) (Negative) Influenza Type B (PCR) (Negative) Urine Legionella Ag (Negative) M. pneumoniae Source M. pneumoniae (PCR) RSV (PCR) (Negative) Ur Strep pneumoniae Ag (Negative) Add-On Test Request Range/Units 10/06/22 10/06/22 10/06/22 21:00 21:00 21:00 WBC (4.4-10.8) 10^3/uL RBC (3.93-5.22) 10^6/uL Hgb (11.2-15.7) g/dL Hct (36.0-46.0) % MCV (80-95) fL MCH (27.0-33.0) pg MCHC (32.0-36.0) % RDW (11.7-14.6) % Plt Count (130-400) 10^3/uL MPV (8.0-11.0) fL Immature Gran % Neutrophils % Lymphocytes % Monocytes % Eosinophils % Basophils % Nucleated RBC % (0.0-0.3) % Absolute Neutrophils (1.2-6.7) 10^3/uL Absolute Lymphocytes (1.2-3.4) 10^3/uL Absolute Monocytes (0.1-0.8) 10^3/uL Absolute Eosinophils (0.0-0.7) 10^3/uL Absolute Basophils (0.0-0.2) 10^3/uL D-Dimer (<500) ng/mlFEU VBG pH (7.31-7.41) 7.32 VBG pCO2 (41-51) mmHg 45 VBG pO2 mmHg 41 VBG HCO3 (23-28) mmol/L 21 L VBG Total CO2 (24-29) mmol/L 45 H VBG O2 Saturation % 70 VBG Base Excess (-2-3) mmol/L -3 L VBG Lactate (0.6-1.4) mmol/L Sodium (136-145) mmol/L Potassium (3.5-5.1) mmol/L Chloride (98-107) mmol/L Carbon Dioxide (21.0-32.0) mmol/L Anion Gap (3-11) mmol/L BUN (7-18) mg/dL Creatinine (0.55-1.02) mg/dL Est GFR (CKD-EPI 2020) (mL/min/1.73m2) Glucose (74-106) mg/dL Hemoglobin A1c (<5.7) % Calcium (8.5-10.1) mg/dL Phosphorus (2.6-4.7) mg/dL Magnesium (1.8-2.4) mg/dL Total Bilirubin (0.2-1.0) mg/dL AST (15-37) U/L ALT (14-59) U/L Alkaline Phosphatase (46-116) U/L Creatine Kinase (26-192) U/L Troponin I (<or=60) ng/L 51 C-Reactive Protein (0.0-0.3) mg/dL NT-Pro-B Natriuret Pep (<300) pg/mL 1740 H Total Protein (6.4-8.2) g/dL Albumin (3.4-5.0) g/dL Triglycerides (<150) mg/dL Total Cholesterol (<200) mg/dL LDL Cholesterol, Calc (<100) mg/dL HDL Cholesterol (40-60) mg/dL Procalcitonin ng/mL Urine Color (Yellow) Urine Clarity (Clear) Urine pH (5-8) Ur Specific [place] (1.005-1.025) Urine Protein (Negative) mg/dL Urine Ketones (Negative) mg/dL Urine Blood (Negative) Urine Nitrite (Negative) Urine Bilirubin (Negative) Urine Urobilinogen (Up to 0.2) mg/dL Ur Leukocyte Esterase (Negative) Ur Random Creatinine mg/dL Urine Urea Nitrogen (See Note) mg/dL Urine Glucose (Negative) mg/dL Stl C.difficile Tox PCR (Negative) COVID-19 Source Nasopharynx SARS-CoV-2 (PCR) (Negative) Negative Influenza Type A (PCR) (Negative) Negative Influenza Type B (PCR) (Negative) Negative Urine Legionella Ag (Negative) M. pneumoniae Source M. pneumoniae (PCR) RSV (PCR) (Negative) Negative Ur Strep pneumoniae Ag (Negative) Add-On Test Request Range/Units 10/06/22 10/07/22 10/07/22 21:00 00:10 00:10 WBC (4.4-10.8) 10^3/uL RBC (3.93-5.22) 10^6/uL Hgb (11.2-15.7) g/dL Hct (36.0-46.0) % MCV (80-95) fL MCH (27.0-33.0) pg MCHC (32.0-36.0) % RDW (11.7-14.6) % Plt Count (130-400) 10^3/uL MPV (8.0-11.0) fL Immature Gran % Neutrophils % Lymphocytes % Monocytes % Eosinophils % Basophils % Nucleated RBC % (0.0-0.3) % Absolute Neutrophils (1.2-6.7) 10^3/uL Absolute Lymphocytes (1.2-3.4) 10^3/uL Absolute Monocytes (0.1-0.8) 10^3/uL Absolute Eosinophils (0.0-0.7) 10^3/uL Absolute Basophils (0.0-0.2) 10^3/uL D-Dimer (<500) ng/mlFEU 1552 H VBG pH (7.31-7.41) VBG pCO2 (41-51) mmHg VBG pO2 mmHg VBG HCO3 (23-28) mmol/L VBG Total CO2 (24-29) mmol/L VBG O2 Saturation % VBG Base Excess (-2-3) mmol/L VBG Lactate (0.6-1.4) mmol/L Sodium (136-145) mmol/L Potassium (3.5-5.1) mmol/L Chloride (98-107) mmol/L Carbon Dioxide (21.0-32.0) mmol/L Anion Gap (3-11) mmol/L BUN (7-18) mg/dL Creatinine (0.55-1.02) mg/dL Est GFR (CKD-EPI 2020) (mL/min/1.73m2) Glucose (74-106) mg/dL Hemoglobin A1c (<5.7) % Calcium (8.5-10.1) mg/dL Phosphorus (2.6-4.7) mg/dL Magnesium (1.8-2.4) mg/dL Total Bilirubin (0.2-1.0) mg/dL AST (15-37) U/L ALT (14-59) U/L Alkaline Phosphatase (46-116) U/L Creatine Kinase (26-192) U/L Troponin I (<or=60) ng/L 74 H* C-Reactive Protein (0.0-0.3) mg/dL NT-Pro-B Natriuret Pep (<300) pg/mL Total Protein (6.4-8.2) g/dL Albumin (3.4-5.0) g/dL Triglycerides (<150) mg/dL Total Cholesterol (<200) mg/dL LDL Cholesterol, Calc (<100) mg/dL HDL Cholesterol (40-60) mg/dL Procalcitonin ng/mL < 0.1 Urine Color (Yellow) Urine Clarity (Clear) Urine pH (5-8) Ur Specific [place] (1.005-1.025) Urine Protein (Negative) mg/dL Urine Ketones (Negative) mg/dL Urine Blood (Negative) Urine Nitrite (Negative) Urine Bilirubin (Negative) Urine Urobilinogen (Up to 0.2) mg/dL Ur Leukocyte Esterase (Negative) Ur Random Creatinine mg/dL Urine Urea Nitrogen (See Note) mg/dL Urine Glucose (Negative) mg/dL Stl C.difficile Tox PCR (Negative) COVID-19 Source SARS-CoV-2 (PCR) (Negative) Influenza Type A (PCR) (Negative) Influenza Type B (PCR) (Negative) Urine Legionella Ag (Negative) M. pneumoniae Source M. pneumoniae (PCR) RSV (PCR) (Negative) Ur Strep pneumoniae Ag (Negative) Add-On Test Request Range/Units 10/07/22 10/07/22 10/07/22 00:10 00:10 05:26 WBC (4.4-10.8) 10^3/uL RBC (3.93-5.22) 10^6/uL Hgb (11.2-15.7) g/dL Hct (36.0-46.0) % MCV (80-95) fL MCH (27.0-33.0) pg MCHC (32.0-36.0) % RDW (11.7-14.6) % Plt Count (130-400) 10^3/uL MPV (8.0-11.0) fL Immature Gran % Neutrophils % Lymphocytes % Monocytes % Eosinophils % Basophils % Nucleated RBC % (0.0-0.3) % Absolute Neutrophils (1.2-6.7) 10^3/uL Absolute Lymphocytes (1.2-3.4) 10^3/uL Absolute Monocytes (0.1-0.8) 10^3/uL Absolute Eosinophils (0.0-0.7) 10^3/uL Absolute Basophils (0.0-0.2) 10^3/uL D-Dimer (<500) ng/mlFEU VBG pH (7.31-7.41) VBG pCO2 (41-51) mmHg VBG pO2 mmHg VBG HCO3 (23-28) mmol/L VBG Total CO2 (24-29) mmol/L VBG O2 Saturation % VBG Base Excess (-2-3) mmol/L VBG Lactate (0.6-1.4) mmol/L Sodium (136-145) mmol/L 141 Potassium (3.5-5.1) mmol/L 3.0 L D Chloride (98-107) mmol/L 105 Carbon Dioxide (21.0-32.0) mmol/L 24.7 Anion Gap (3-11) mmol/L 11.3 H BUN (7-18) mg/dL 41 H Creatinine (0.55-1.02) mg/dL 1.8 H Est GFR (CKD-EPI 2020) (mL/min/1.73m2) 28.31 Glucose (74-106) mg/dL 214 H Hemoglobin A1c (<5.7) % Calcium (8.5-10.1) mg/dL 8.6 Phosphorus (2.6-4.7) mg/dL Magnesium (1.8-2.4) mg/dL 1.7 L Total Bilirubin (0.2-1.0) mg/dL AST (15-37) U/L ALT (14-59) U/L Alkaline Phosphatase (46-116) U/L Creatine Kinase (26-192) U/L 173 Troponin I (<or=60) ng/L C-Reactive Protein (0.0-0.3) mg/dL NT-Pro-B Natriuret Pep (<300) pg/mL Total Protein (6.4-8.2) g/dL Albumin (3.4-5.0) g/dL Triglycerides (<150) mg/dL Total Cholesterol (<200) mg/dL LDL Cholesterol, Calc (<100) mg/dL HDL Cholesterol (40-60) mg/dL Procalcitonin ng/mL Urine Color (Yellow) Urine Clarity (Clear) Urine pH (5-8) Ur Specific [place] (1.005-1.025) Urine Protein (Negative) mg/dL Urine Ketones (Negative) mg/dL Urine Blood (Negative) Urine Nitrite (Negative) Urine Bilirubin (Negative) Urine Urobilinogen (Up to 0.2) mg/dL Ur Leukocyte Esterase (Negative) Ur Random Creatinine mg/dL Urine Urea Nitrogen (See Note) mg/dL Urine Glucose (Negative) mg/dL Stl C.difficile Tox PCR (Negative) COVID-19 Source SARS-CoV-2 (PCR) (Negative) Influenza Type A (PCR) (Negative) Influenza Type B (PCR) (Negative) Urine Legionella Ag (Negative) M. pneumoniae Source M. pneumoniae (PCR) RSV (PCR) (Negative) Ur Strep pneumoniae Ag (Negative) Add-On Test Request DONE Range/Units 10/07/22 10/07/22 10/07/22 05:26 05:40 05:40 WBC (4.4-10.8) 10^3/uL 6.07 RBC (3.93-5.22) 10^6/uL 3.40 L Hgb (11.2-15.7) g/dL 10.6 L Hct (36.0-46.0) % 32.3 L MCV (80-95) fL 95 MCH (27.0-33.0) pg 31.2 MCHC (32.0-36.0) % 32.8 RDW (11.7-14.6) % 14.6 Plt Count (130-400) 10^3/uL 143 MPV (8.0-11.0) fL 10.8 Immature Gran % 0.5 Neutrophils % 84.5 Lymphocytes % 13.3 Monocytes % 1.5 Eosinophils % 0.0 Basophils % 0.2 Nucleated RBC % (0.0-0.3) % 0.0 Absolute Neutrophils (1.2-6.7) 10^3/uL 5.13 Absolute Lymphocytes (1.2-3.4) 10^3/uL 0.81 L Absolute Monocytes (0.1-0.8) 10^3/uL 0.09 L Absolute Eosinophils (0.0-0.7) 10^3/uL 0.00 Absolute Basophils (0.0-0.2) 10^3/uL 0.01 D-Dimer (<500) ng/mlFEU VBG pH (7.31-7.41) VBG pCO2 (41-51) mmHg VBG pO2 mmHg VBG HCO3 (23-28) mmol/L VBG Total CO2 (24-29) mmol/L VBG O2 Saturation % VBG Base Excess (-2-3) mmol/L VBG Lactate (0.6-1.4) mmol/L Sodium (136-145) mmol/L Potassium (3.5-5.1) mmol/L Chloride (98-107) mmol/L Carbon Dioxide (21.0-32.0) mmol/L Anion Gap (3-11) mmol/L BUN (7-18) mg/dL Creatinine (0.55-1.02) mg/dL Est GFR (CKD-EPI 2020) (mL/min/1.73m2) Glucose (74-106) mg/dL Hemoglobin A1c (<5.7) % Calcium (8.5-10.1) mg/dL Phosphorus (2.6-4.7) mg/dL Magnesium (1.8-2.4) mg/dL Total Bilirubin (0.2-1.0) mg/dL AST (15-37) U/L ALT (14-59) U/L Alkaline Phosphatase (46-116) U/L Creatine Kinase (26-192) U/L Troponin I (<or=60) ng/L C-Reactive Protein (0.0-0.3) mg/dL NT-Pro-B Natriuret Pep (<300) pg/mL Total Protein (6.4-8.2) g/dL Albumin (3.4-5.0) g/dL Triglycerides (<150) mg/dL Total Cholesterol (<200) mg/dL LDL Cholesterol, Calc (<100) mg/dL HDL Cholesterol (40-60) mg/dL Procalcitonin ng/mL Urine Color (Yellow) Yellow Urine Clarity (Clear) Clear Urine pH (5-8) 5.5 Ur Specific [place] (1.005-1.025) 1.020 Urine Protein (Negative) mg/dL Negative Urine Ketones (Negative) mg/dL Negative Urine Blood (Negative) Negative Urine Nitrite (Negative) Negative Urine Bilirubin (Negative) Negative Urine Urobilinogen (Up to 0.2) mg/dL 0.2 Ur Leukocyte Esterase (Negative) Negative Ur Random Creatinine mg/dL 32.65 Urine Urea Nitrogen (See Note) mg/dL Urine Glucose (Negative) mg/dL Negative Stl C.difficile Tox PCR (Negative) COVID-19 Source SARS-CoV-2 (PCR) (Negative) Influenza Type A (PCR) (Negative) Influenza Type B (PCR) (Negative) Urine Legionella Ag (Negative) M. pneumoniae Source M. pneumoniae (PCR) RSV (PCR) (Negative) Ur Strep pneumoniae Ag (Negative) Add-On Test Request Range/Units 10/07/22 10/07/22 10/07/22 05:40 10:45 15:15 WBC (4.4-10.8) 10^3/uL RBC (3.93-5.22) 10^6/uL Hgb (11.2-15.7) g/dL Hct (36.0-46.0) % MCV (80-95) fL MCH (27.0-33.0) pg MCHC (32.0-36.0) % RDW (11.7-14.6) % Plt Count (130-400) 10^3/uL MPV (8.0-11.0) fL Immature Gran % Neutrophils % Lymphocytes % Monocytes % Eosinophils % Basophils % Nucleated RBC % (0.0-0.3) % Absolute Neutrophils (1.2-6.7) 10^3/uL Absolute Lymphocytes (1.2-3.4) 10^3/uL Absolute Monocytes (0.1-0.8) 10^3/uL Absolute Eosinophils (0.0-0.7) 10^3/uL Absolute Basophils (0.0-0.2) 10^3/uL D-Dimer (<500) ng/mlFEU VBG pH (7.31-7.41) VBG pCO2 (41-51) mmHg VBG pO2 mmHg VBG HCO3 (23-28) mmol/L VBG Total CO2 (24-29) mmol/L VBG O2 Saturation % VBG Base Excess (-2-3) mmol/L VBG Lactate (0.6-1.4) mmol/L Sodium (136-145) mmol/L Potassium (3.5-5.1) mmol/L Chloride (98-107) mmol/L Carbon Dioxide (21.0-32.0) mmol/L Anion Gap (3-11) mmol/L BUN (7-18) mg/dL Creatinine (0.55-1.02) mg/dL Est GFR (CKD-EPI 2020) (mL/min/1.73m2) Glucose (74-106) mg/dL Hemoglobin A1c (<5.7) % Calcium (8.5-10.1) mg/dL Phosphorus (2.6-4.7) mg/dL Magnesium (1.8-2.4) mg/dL Total Bilirubin (0.2-1.0) mg/dL AST (15-37) U/L ALT (14-59) U/L Alkaline Phosphatase (46-116) U/L Creatine Kinase (26-192) U/L Troponin I (<or=60) ng/L C-Reactive Protein (0.0-0.3) mg/dL NT-Pro-B Natriuret Pep (<300) pg/mL Total Protein (6.4-8.2) g/dL Albumin (3.4-5.0) g/dL Triglycerides (<150) mg/dL Total Cholesterol (<200) mg/dL LDL Cholesterol, Calc (<100) mg/dL HDL Cholesterol (40-60) mg/dL Procalcitonin ng/mL Urine Color (Yellow) Urine Clarity (Clear) Urine pH (5-8) Ur Specific [place] (1.005-1.025) Urine Protein (Negative) mg/dL Urine Ketones (Negative) mg/dL Urine Blood (Negative) Urine Nitrite (Negative) Urine Bilirubin (Negative) Urine Urobilinogen (Up to 0.2) mg/dL Ur Leukocyte Esterase (Negative) Ur Random Creatinine mg/dL Urine Urea Nitrogen (See Note) mg/dL 367 Urine Glucose (Negative) mg/dL Stl C.difficile Tox PCR (Negative) COVID-19 Source SARS-CoV-2 (PCR) (Negative) Influenza Type A (PCR) (Negative) Influenza Type B (PCR) (Negative) Urine Legionella Ag (Negative) M. pneumoniae Source Sputum M. pneumoniae (PCR) Negative RSV (PCR) (Negative) Ur Strep pneumoniae Ag (Negative) Negative Add-On Test Request Range/Units 10/07/22 10/07/22 10/07/22 15:15 16:00 16:00 WBC (4.4-10.8) 10^3/uL RBC (3.93-5.22) 10^6/uL Hgb (11.2-15.7) g/dL Hct (36.0-46.0) % MCV (80-95) fL MCH (27.0-33.0) pg MCHC (32.0-36.0) % RDW (11.7-14.6) % Plt Count (130-400) 10^3/uL MPV (8.0-11.0) fL Immature Gran % Neutrophils % Lymphocytes % Monocytes % Eosinophils % Basophils % Nucleated RBC % (0.0-0.3) % Absolute Neutrophils (1.2-6.7) 10^3/uL Absolute Lymphocytes (1.2-3.4) 10^3/uL Absolute Monocytes (0.1-0.8) 10^3/uL Absolute Eosinophils (0.0-0.7) 10^3/uL Absolute Basophils (0.0-0.2) 10^3/uL D-Dimer (<500) ng/mlFEU VBG pH (7.31-7.41) VBG pCO2 (41-51) mmHg VBG pO2 mmHg VBG HCO3 (23-28) mmol/L VBG Total CO2 (24-29) mmol/L VBG O2 Saturation % VBG Base Excess (-2-3) mmol/L VBG Lactate (0.6-1.4) mmol/L Sodium (136-145) mmol/L Cancelled Potassium (3.5-5.1) mmol/L Cancelled Chloride (98-107) mmol/L Cancelled Carbon Dioxide (21.0-32.0) mmol/L Cancelled Anion Gap (3-11) mmol/L Cancelled BUN (7-18) mg/dL Cancelled Creatinine (0.55-1.02) mg/dL Cancelled Est GFR (CKD-EPI 2020) (mL/min/1.73m2) Cancelled Glucose (74-106) mg/dL Cancelled Hemoglobin A1c (<5.7) % Calcium (8.5-10.1) mg/dL Cancelled Phosphorus (2.6-4.7) mg/dL Magnesium (1.8-2.4) mg/dL Cancelled Total Bilirubin (0.2-1.0) mg/dL AST (15-37) U/L ALT (14-59) U/L Alkaline Phosphatase (46-116) U/L Creatine Kinase (26-192) U/L Troponin I (<or=60) ng/L C-Reactive Protein (0.0-0.3) mg/dL NT-Pro-B Natriuret Pep (<300) pg/mL Total Protein (6.4-8.2) g/dL Albumin (3.4-5.0) g/dL Triglycerides (<150) mg/dL Total Cholesterol (<200) mg/dL LDL Cholesterol, Calc (<100) mg/dL HDL Cholesterol (40-60) mg/dL Procalcitonin ng/mL Urine Color (Yellow) Urine Clarity (Clear) Urine pH (5-8) Ur Specific [place] (1.005-1.025) Urine Protein (Negative) mg/dL Urine Ketones (Negative) mg/dL Urine Blood (Negative) Urine Nitrite (Negative) Urine Bilirubin (Negative) Urine Urobilinogen (Up to 0.2) mg/dL Ur Leukocyte Esterase (Negative) Ur Random Creatinine mg/dL Urine Urea Nitrogen (See Note) mg/dL Urine Glucose (Negative) mg/dL Stl C.difficile Tox PCR (Negative) COVID-19 Source SARS-CoV-2 (PCR) (Negative) Influenza Type A (PCR) (Negative) Influenza Type B (PCR) (Negative) Urine Legionella Ag (Negative) Negative M. pneumoniae Source M. pneumoniae (PCR) RSV (PCR) (Negative) Ur Strep pneumoniae Ag (Negative) Add-On Test Request Range/Units 10/07/22 10/07/22 10/08/22 18:00 22:10 06:15 WBC (4.4-10.8) 10^3/uL RBC (3.93-5.22) 10^6/uL Hgb (11.2-15.7) g/dL Hct (36.0-46.0) % MCV (80-95) fL MCH (27.0-33.0) pg MCHC (32.0-36.0) % RDW (11.7-14.6) % Plt Count (130-400) 10^3/uL MPV (8.0-11.0) fL Immature Gran % Neutrophils % Lymphocytes % Monocytes % Eosinophils % Basophils % Nucleated RBC % (0.0-0.3) % Absolute Neutrophils (1.2-6.7) 10^3/uL Absolute Lymphocytes (1.2-3.4) 10^3/uL Absolute Monocytes (0.1-0.8) 10^3/uL Absolute Eosinophils (0.0-0.7) 10^3/uL Absolute Basophils (0.0-0.2) 10^3/uL D-Dimer (<500) ng/mlFEU VBG pH (7.31-7.41) VBG pCO2 (41-51) mmHg VBG pO2 mmHg VBG HCO3 (23-28) mmol/L VBG Total CO2 (24-29) mmol/L VBG O2 Saturation % VBG Base Excess (-2-3) mmol/L VBG Lactate (0.6-1.4) mmol/L Sodium (136-145) mmol/L Cancelled 140 145 Potassium (3.5-5.1) mmol/L Cancelled 3.7 3.3 L Chloride (98-107) mmol/L Cancelled 106 108 H Carbon Dioxide (21.0-32.0) mmol/L Cancelled 23.9 27.7 Anion Gap (3-11) mmol/L Cancelled 10.1 9.3 BUN (7-18) mg/dL Cancelled 42 H 42 H Creatinine (0.55-1.02) mg/dL Cancelled 1.6 H 1.7 H Est GFR (CKD-EPI 2020) (mL/min/1.73m2) Cancelled 32.60 30.32 Glucose (74-106) mg/dL Cancelled 156 H 115 H Hemoglobin A1c (<5.7) % Calcium (8.5-10.1) mg/dL Cancelled 8.2 L 8.3 L Phosphorus (2.6-4.7) mg/dL Magnesium (1.8-2.4) mg/dL Cancelled 2.3 2.3 Total Bilirubin (0.2-1.0) mg/dL 0.3 AST (15-37) U/L 53 H ALT (14-59) U/L 85 H Alkaline Phosphatase (46-116) U/L 109 Creatine Kinase (26-192) U/L Troponin I (<or=60) ng/L 386 H* 378 H* C-Reactive Protein (0.0-0.3) mg/dL NT-Pro-B Natriuret Pep (<300) pg/mL Total Protein (6.4-8.2) g/dL 5.8 L Albumin (3.4-5.0) g/dL 3.0 L Triglycerides (<150) mg/dL 53 Total Cholesterol (<200) mg/dL 126 LDL Cholesterol, Calc (<100) mg/dL 37 HDL Cholesterol (40-60) mg/dL 79 Procalcitonin ng/mL Urine Color (Yellow) Urine Clarity (Clear) Urine pH (5-8) Ur Specific Caroleen (1.005-1.025) Urine Protein (Negative) mg/dL Urine Ketones (Negative) mg/dL Urine Blood (Negative) Urine Nitrite (Negative) Urine Bilirubin (Negative) Urine Urobilinogen (Up to 0.2) mg/dL Ur Leukocyte Esterase (Negative) Ur Random Creatinine mg/dL Urine Urea Nitrogen (See Note) mg/dL Urine Glucose (Negative) mg/dL Stl C.difficile Tox PCR (Negative) COVID-19 Source SARS-CoV-2 (PCR) (Negative) Influenza Type A (PCR) (Negative) Influenza Type B (PCR) (Negative) Urine Legionella Ag (Negative) M. pneumoniae Source M. pneumoniae (PCR) RSV (PCR) (Negative) Ur Strep pneumoniae Ag (Negative) Add-On Test Request Range/Units 10/08/22 10/08/22 10/08/22 06:15 06:15 11:03 WBC (4.4-10.8) 10^3/uL 14.15 H RBC (3.93-5.22) 10^6/uL 3.35 L Hgb (11.2-15.7) g/dL 10.1 L Hct (36.0-46.0) % 31.7 L MCV (80-95) fL 95 MCH (27.0-33.0) pg 30.1 MCHC (32.0-36.0) % 31.9 L RDW (11.7-14.6) % 14.7 H Plt Count (130-400) 10^3/uL 141 MPV (8.0-11.0) fL 10.4 Immature Gran % 0.5 Neutrophils % 72.8 Lymphocytes % 18.1 Monocytes % 8.4 Eosinophils % 0.1 Basophils % 0.1 Nucleated RBC % (0.0-0.3) % 0.0 Absolute Neutrophils (1.2-6.7) 10^3/uL 10.30 H Absolute Lymphocytes (1.2-3.4) 10^3/uL 2.56 Absolute Monocytes (0.1-0.8) 10^3/uL 1.19 H Absolute Eosinophils (0.0-0.7) 10^3/uL 0.01 Absolute Basophils (0.0-0.2) 10^3/uL 0.01 D-Dimer (<500) ng/mlFEU VBG pH (7.31-7.41) VBG pCO2 (41-51) mmHg VBG pO2 mmHg VBG HCO3 (23-28) mmol/L VBG Total CO2 (24-29) mmol/L VBG O2 Saturation % VBG Base Excess (-2-3) mmol/L VBG Lactate (0.6-1.4) mmol/L Sodium (136-145) mmol/L Potassium (3.5-5.1) mmol/L Chloride (98-107) mmol/L Carbon Dioxide (21.0-32.0) mmol/L Anion Gap (3-11) mmol/L BUN (7-18) mg/dL Creatinine (0.55-1.02) mg/dL Est GFR (CKD-EPI 2020) (mL/min/1.73m2) Glucose (74-106) mg/dL Hemoglobin A1c (<5.7) % 6.9 H Calcium (8.5-10.1) mg/dL Phosphorus (2.6-4.7) mg/dL Magnesium (1.8-2.4) mg/dL Total Bilirubin (0.2-1.0) mg/dL AST (15-37) U/L ALT (14-59) U/L Alkaline Phosphatase (46-116) U/L Creatine Kinase (26-192) U/L Troponin I (<or=60) ng/L 304 H* C-Reactive Protein (0.0-0.3) mg/dL NT-Pro-B Natriuret Pep (<300) pg/mL Total Protein (6.4-8.2) g/dL Albumin (3.4-5.0) g/dL Triglycerides (<150) mg/dL Total Cholesterol (<200) mg/dL LDL Cholesterol, Calc (<100) mg/dL HDL Cholesterol (40-60) mg/dL Procalcitonin ng/mL Urine Color (Yellow) Urine Clarity (Clear) Urine pH (5-8) Ur Specific Caroleen (1.005-1.025) Urine Protein (Negative) mg/dL Urine Ketones (Negative) mg/dL Urine Blood (Negative) Urine Nitrite (Negative) Urine Bilirubin (Negative) Urine Urobilinogen (Up to 0.2) mg/dL Ur Leukocyte Esterase (Negative) Ur Random Creatinine mg/dL Urine Urea Nitrogen (See Note) mg/dL Urine Glucose (Negative) mg/dL Stl C.difficile Tox PCR (Negative) COVID-19 Source SARS-CoV-2 (PCR) (Negative) Influenza Type A (PCR) (Negative) Influenza Type B (PCR) (Negative) Urine Legionella Ag (Negative) M. pneumoniae Source M. pneumoniae (PCR) RSV (PCR) (Negative) Ur Strep pneumoniae Ag (Negative) Add-On Test Request Range/Units 04/07/23 04/07/23 04/07/23 14:05 14:05 14:05 WBC (4.4-10.8) 10^3/uL RBC (3.93-5.22) 10^6/uL Hgb (11.2-15.7) g/dL Hct (36.0-46.0) % MCV (80-95) fL MCH (27.0-33.0) pg MCHC (32.0-36.0) % RDW (11.7-14.6) % Plt Count (130-400) 10^3/uL MPV (8.0-11.0) fL Immature Gran % Neutrophils % Lymphocytes % Monocytes % Eosinophils % Basophils % Nucleated RBC % (0.0-0.3) % Absolute Neutrophils (1.2-6.7) 10^3/uL Absolute Lymphocytes (1.2-3.4) 10^3/uL Absolute Monocytes (0.1-0.8) 10^3/uL Absolute Eosinophils (0.0-0.7) 10^3/uL Absolute Basophils (0.0-0.2) 10^3/uL D-Dimer (<500) ng/mlFEU VBG pH (7.31-7.41) 7.36 VBG pCO2 (41-51) mmHg 38 L VBG pO2 mmHg 50 VBG HCO3 (23-28) mmol/L 21 L VBG Total CO2 (24-29) mmol/L 20 L VBG O2 Saturation % 85 VBG Base Excess (-2-3) mmol/L -4 L VBG Lactate (0.6-1.4) mmol/L Sodium (136-145) mmol/L Potassium (3.5-5.1) mmol/L Chloride (98-107) mmol/L Carbon Dioxide (21.0-32.0) mmol/L Anion Gap (3-11) mmol/L BUN (7-18) mg/dL Creatinine (0.55-1.02) mg/dL Est GFR (CKD-EPI 2020) (mL/min/1.73m2) Glucose (74-106) mg/dL Hemoglobin A1c (<5.7) % Calcium (8.5-10.1) mg/dL Phosphorus (2.6-4.7) mg/dL Magnesium (1.8-2.4) mg/dL Total Bilirubin (0.2-1.0) mg/dL AST (15-37) U/L ALT (14-59) U/L Alkaline Phosphatase (46-116) U/L Creatine Kinase (26-192) U/L Troponin I (<or=60) ng/L 247 H* C-Reactive Protein (0.0-0.3) mg/dL NT-Pro-B Natriuret Pep (<300) pg/mL 889 H Cancelled Total Protein (6.4-8.2) g/dL Albumin (3.4-5.0) g/dL Triglycerides (<150) mg/dL Total Cholesterol (<200) mg/dL LDL Cholesterol, Calc (<100) mg/dL HDL Cholesterol (40-60) mg/dL Procalcitonin ng/mL Urine Color (Yellow) Urine Clarity (Clear) Urine pH (5-8) Ur Specific Caroleen (1.005-1.025) Urine Protein (Negative) mg/dL Urine Ketones (Negative) mg/dL Urine Blood (Negative) Urine Nitrite (Negative) Urine Bilirubin (Negative) Urine Urobilinogen (Up to 0.2) mg/dL Ur Leukocyte Esterase (Negative) Ur Random Creatinine mg/dL Urine Urea Nitrogen (See Note) mg/dL Urine Glucose (Negative) mg/dL Stl C.difficile Tox PCR (Negative) COVID-19 Source SARS-CoV-2 (PCR) (Negative) Influenza Type A (PCR) (Negative) Influenza Type B (PCR) (Negative) Urine Legionella Ag (Negative) M. pneumoniae Source M. pneumoniae (PCR) RSV (PCR) (Negative) Ur Strep pneumoniae Ag (Negative) Add-On Test Request Range/Units 10/08/22 10/08/22 10/08/22 14:05 15:35 15:39 WBC (4.4-10.8) 10^3/uL RBC (3.93-5.22) 10^6/uL Hgb (11.2-15.7) g/dL Hct (36.0-46.0) % MCV (80-95) fL MCH (27.0-33.0) pg MCHC (32.0-36.0) % RDW (11.7-14.6) % Plt Count (130-400) 10^3/uL MPV (8.0-11.0) fL Immature Gran % Neutrophils % Lymphocytes % Monocytes % Eosinophils % Basophils % Nucleated RBC % (0.0-0.3) % Absolute Neutrophils (1.2-6.7) 10^3/uL Absolute Lymphocytes (1.2-3.4) 10^3/uL Absolute Monocytes (0.1-0.8) 10^3/uL Absolute Eosinophils (0.0-0.7) 10^3/uL Absolute Basophils (0.0-0.2) 10^3/uL D-Dimer (<500) ng/mlFEU 1400 H VBG pH (7.31-7.41) VBG pCO2 (41-51) mmHg VBG pO2 mmHg VBG HCO3 (23-28) mmol/L VBG Total CO2 (24-29) mmol/L VBG O2 Saturation % VBG Base Excess (-2-3) mmol/L VBG Lactate (0.6-1.4) mmol/L Sodium (136-145) mmol/L Potassium (3.5-5.1) mmol/L 3.5 Chloride (98-107) mmol/L Carbon Dioxide (21.0-32.0) mmol/L Anion Gap (3-11) mmol/L BUN (7-18) mg/dL Creatinine (0.55-1.02) mg/dL Est GFR (CKD-EPI 2020) (mL/min/1.73m2) Glucose (74-106) mg/dL Hemoglobin A1c (<5.7) % Calcium (8.5-10.1) mg/dL Phosphorus (2.6-4.7) mg/dL Magnesium (1.8-2.4) mg/dL Total Bilirubin (0.2-1.0) mg/dL AST (15-37) U/L ALT (14-59) U/L Alkaline Phosphatase (46-116) U/L Creatine Kinase (26-192) U/L Troponin I (<or=60) ng/L C-Reactive Protein (0.0-0.3) mg/dL NT-Pro-B Natriuret Pep (<300) pg/mL Total Protein (6.4-8.2) g/dL Albumin (3.4-5.0) g/dL Triglycerides (<150) mg/dL Total Cholesterol (<200) mg/dL LDL Cholesterol, Calc (<100) mg/dL HDL Cholesterol (40-60) mg/dL Procalcitonin ng/mL < 0.1 Urine Color (Yellow) Urine Clarity (Clear) Urine pH (5-8) Ur Specific Caroleen (1.005-1.025) Urine Protein (Negative) mg/dL Urine Ketones (Negative) mg/dL Urine Blood (Negative) Urine Nitrite (Negative) Urine Bilirubin (Negative) Urine Urobilinogen (Up to 0.2) mg/dL Ur Leukocyte Esterase (Negative) Ur Random Creatinine mg/dL Urine Urea Nitrogen (See Note) mg/dL Urine Glucose (Negative) mg/dL Stl C.difficile Tox PCR (Negative) COVID-19 Source SARS-CoV-2 (PCR) (Negative) Influenza Type A (PCR) (Negative) Influenza Type B (PCR) (Negative) Urine Legionella Ag (Negative) M. pneumoniae Source M. pneumoniae (PCR) RSV (PCR) (Negative) Ur Strep pneumoniae Ag (Negative) Add-On Test Request Range/Units 10/09/22 10/09/22 10/10/22 06:10 06:10 05:30 WBC (4.4-10.8) 10^3/uL 17.04 H RBC (3.93-5.22) 10^6/uL 3.33 L Hgb (11.2-15.7) g/dL 10.1 L Hct (36.0-46.0) % 32.3 L MCV (80-95) fL 97 H MCH (27.0-33.0) pg 30.3 MCHC (32.0-36.0) % 31.3 L RDW (11.7-14.6) % 15.0 H Plt Count (130-400) 10^3/uL 145 MPV (8.0-11.0) fL 10.3 Immature Gran % 0.7 Neutrophils % 75.7 Lymphocytes % 17.0 Monocytes % 6.5 Eosinophils % 0.0 Basophils % 0.1 Nucleated RBC % (0.0-0.3) % 0.0 Absolute Neutrophils (1.2-6.7) 10^3/uL 12.90 H Absolute Lymphocytes (1.2-3.4) 10^3/uL 2.90 Absolute Monocytes (0.1-0.8) 10^3/uL 1.11 H Absolute Eosinophils (0.0-0.7) 10^3/uL 0.00 Absolute Basophils (0.0-0.2) 10^3/uL 0.02 D-Dimer (<500) ng/mlFEU VBG pH (7.31-7.41) VBG pCO2 (41-51) mmHg VBG pO2 mmHg VBG HCO3 (23-28) mmol/L VBG Total CO2 (24-29) mmol/L VBG O2 Saturation % VBG Base Excess (-2-3) mmol/L VBG Lactate (0.6-1.4) mmol/L Sodium (136-145) mmol/L 145 Potassium (3.5-5.1) mmol/L 4.2 Chloride (98-107) mmol/L 111 H Carbon Dioxide (21.0-32.0) mmol/L 26.1 Anion Gap (3-11) mmol/L 7.9 BUN (7-18) mg/dL 37 H Creatinine (0.55-1.02) mg/dL 1.5 H Est GFR (CKD-EPI 2020) (mL/min/1.73m2) 35.23 Glucose (74-106) mg/dL 102 Hemoglobin A1c (<5.7) % Calcium (8.5-10.1) mg/dL 9.4 Phosphorus (2.6-4.7) mg/dL Magnesium (1.8-2.4) mg/dL Total Bilirubin (0.2-1.0) mg/dL AST (15-37) U/L ALT (14-59) U/L Alkaline Phosphatase (46-116) U/L Creatine Kinase (26-192) U/L Troponin I (<or=60) ng/L C-Reactive Protein (0.0-0.3) mg/dL NT-Pro-B Natriuret Pep (<300) pg/mL Total Protein (6.4-8.2) g/dL Albumin (3.4-5.0) g/dL Triglycerides (<150) mg/dL Total Cholesterol (<200) mg/dL LDL Cholesterol, Calc (<100) mg/dL HDL Cholesterol (40-60) mg/dL Procalcitonin ng/mL Urine Color (Yellow) Urine Clarity (Clear) Urine pH (5-8) Ur Specific Caroleen (1.005-1.025) Urine Protein (Negative) mg/dL Urine Ketones (Negative) mg/dL Urine Blood (Negative) Urine Nitrite (Negative) Urine Bilirubin (Negative) Urine Urobilinogen (Up to 0.2) mg/dL Ur Leukocyte Esterase (Negative) Ur Random Creatinine mg/dL Urine Urea Nitrogen (See Note) mg/dL Urine Glucose (Negative) mg/dL Stl C.difficile Tox PCR (Negative) Negative COVID-19 Source SARS-CoV-2 (PCR) (Negative) Influenza Type A (PCR) (Negative) Influenza Type B (PCR) (Negative) Urine Legionella Ag (Negative) M. pneumoniae Source M. pneumoniae (PCR) RSV (PCR) (Negative) Ur Strep pneumoniae Ag (Negative) Add-On Test Request Range/Units 10/10/22 10/10/22 10/11/22 06:10 06:10 06:32 WBC (4.4-10.8) 10^3/uL 14.45 H RBC (3.93-5.22) 10^6/uL 3.41 L Hgb (11.2-15.7) g/dL 10.2 L Hct (36.0-46.0) % 32.3 L MCV (80-95) fL 95 MCH (27.0-33.0) pg 29.9 MCHC (32.0-36.0) % 31.6 L RDW (11.7-14.6) % 15.0 H Plt Count (130-400) 10^3/uL 153 MPV (8.0-11.0) fL 10.9 Immature Gran % 0.6 Neutrophils % 71.2 Lymphocytes % 20.9 Monocytes % 7.0 Eosinophils % 0.2 Basophils % 0.1 Nucleated RBC % (0.0-0.3) % 0.0 Absolute Neutrophils (1.2-6.7) 10^3/uL 10.29 H Absolute Lymphocytes (1.2-3.4) 10^3/uL 3.02 Absolute Monocytes (0.1-0.8) 10^3/uL 1.01 H Absolute Eosinophils (0.0-0.7) 10^3/uL 0.03 Absolute Basophils (0.0-0.2) 10^3/uL 0.01 D-Dimer (<500) ng/mlFEU VBG pH (7.31-7.41) VBG pCO2 (41-51) mmHg VBG pO2 mmHg VBG HCO3 (23-28) mmol/L VBG Total CO2 (24-29) mmol/L VBG O2 Saturation % VBG Base Excess (-2-3) mmol/L VBG Lactate (0.6-1.4) mmol/L Sodium (136-145) mmol/L 142 141 Potassium (3.5-5.1) mmol/L 4.0 3.4 L Chloride (98-107) mmol/L 108 H 103 Carbon Dioxide (21.0-32.0) mmol/L 27.2 27.5 Anion Gap (3-11) mmol/L 6.8 10.5 BUN (7-18) mg/dL 35 H 46 H Creatinine (0.55-1.02) mg/dL 1.6 H 1.9 H Est GFR (CKD-EPI 2020) (mL/min/1.73m2) 32.60 26.53 Glucose (74-106) mg/dL 125 H 89 Hemoglobin A1c (<5.7) % Calcium (8.5-10.1) mg/dL 9.4 10.0 Phosphorus (2.6-4.7) mg/dL Magnesium (1.8-2.4) mg/dL Total Bilirubin (0.2-1.0) mg/dL AST (15-37) U/L ALT (14-59) U/L Alkaline Phosphatase (46-116) U/L Creatine Kinase (26-192) U/L Troponin I (<or=60) ng/L C-Reactive Protein (0.0-0.3) mg/dL 0.05 NT-Pro-B Natriuret Pep (<300) pg/mL 2006 H Total Protein (6.4-8.2) g/dL Albumin (3.4-5.0) g/dL Triglycerides (<150) mg/dL Total Cholesterol (<200) mg/dL LDL Cholesterol, Calc (<100) mg/dL HDL Cholesterol (40-60) mg/dL Procalcitonin ng/mL Urine Color (Yellow) Urine Clarity (Clear) Urine pH (5-8) Ur Specific Caroleen (1.005-1.025) Urine Protein (Negative) mg/dL Urine Ketones (Negative) mg/dL Urine Blood (Negative) Urine Nitrite (Negative) Urine Bilirubin (Negative) Urine Urobilinogen (Up to 0.2) mg/dL Ur Leukocyte Esterase (Negative) Ur Random Creatinine mg/dL Urine Urea Nitrogen (See Note) mg/dL Urine Glucose (Negative) mg/dL Stl C.difficile Tox PCR (Negative) COVID-19 Source SARS-CoV-2 (PCR) (Negative) Influenza Type A (PCR) (Negative) Influenza Type B (PCR) (Negative) Urine Legionella Ag (Negative) M. pneumoniae Source M. pneumoniae (PCR) RSV (PCR) (Negative) Ur Strep pneumoniae Ag (Negative) Add-On Test Request Range/Units 10/11/22 10/12/22 06:32 05:50 WBC (4.4-10.8) 10^3/uL RBC (3.93-5.22) 10^6/uL Hgb (11.2-15.7) g/dL Hct (36.0-46.0) % MCV (80-95) fL MCH (27.0-33.0) pg MCHC (32.0-36.0) % RDW (11.7-14.6) % Plt Count (130-400) 10^3/uL MPV (8.0-11.0) fL Immature Gran % Neutrophils % Lymphocytes % Monocytes % Eosinophils % Basophils % Nucleated RBC % (0.0-0.3) % Absolute Neutrophils (1.2-6.7) 10^3/uL Absolute Lymphocytes (1.2-3.4) 10^3/uL Absolute Monocytes (0.1-0.8) 10^3/uL Absolute Eosinophils (0.0-0.7) 10^3/uL Absolute Basophils (0.0-0.2) 10^3/uL D-Dimer (<500) ng/mlFEU VBG pH (7.31-7.41) VBG pCO2 (41-51) mmHg VBG pO2 mmHg VBG HCO3 (23-28) mmol/L VBG Total CO2 (24-29) mmol/L VBG O2 Saturation % VBG Base Excess (-2-3) mmol/L VBG Lactate (0.6-1.4) mmol/L Sodium (136-145) mmol/L 143 Potassium (3.5-5.1) mmol/L 4.0 Chloride (98-107) mmol/L 109 H Carbon Dioxide (21.0-32.0) mmol/L 25.7 Anion Gap (3-11) mmol/L 8.3 BUN (7-18) mg/dL 56 H Creatinine (0.55-1.02) mg/dL 1.8 H Est GFR (CKD-EPI 2020) (mL/min/1.73m2) 28.13 Glucose (74-106) mg/dL 91 Hemoglobin A1c (<5.7) % Calcium (8.5-10.1) mg/dL 10.1 Phosphorus (2.6-4.7) mg/dL 3.3 Magnesium (1.8-2.4) mg/dL 1.9 Total Bilirubin (0.2-1.0) mg/dL AST (15-37) U/L ALT (14-59) U/L Alkaline Phosphatase (46-116) U/L Creatine Kinase (26-192) U/L Troponin I (<or=60) ng/L C-Reactive Protein (0.0-0.3) mg/dL NT-Pro-B Natriuret Pep (<300) pg/mL 1663 H Total Protein (6.4-8.2) g/dL Albumin (3.4-5.0) g/dL Triglycerides (<150) mg/dL Total Cholesterol (<200) mg/dL LDL Cholesterol, Calc (<100) mg/dL HDL Cholesterol (40-60) mg/dL Procalcitonin ng/mL Urine Color (Yellow) Urine Clarity (Clear) Urine pH (5-8) Ur Specific Caroleen (1.005-1.025) Urine Protein (Negative) mg/dL Urine Ketones (Negative) mg/dL Urine Blood (Negative) Urine Nitrite (Negative) Urine Bilirubin (Negative) Urine Urobilinogen (Up to 0.2) mg/dL Ur Leukocyte Esterase (Negative) Ur Random Creatinine mg/dL Urine Urea Nitrogen (See Note) mg/dL Urine Glucose (Negative) mg/dL Stl C.difficile Tox PCR (Negative) COVID-19 Source SARS-CoV-2 (PCR) (Negative) Influenza Type A (PCR) (Negative) Influenza Type B (PCR) (Negative) Urine Legionella Ag (Negative) M. pneumoniae Source M. pneumoniae (PCR) RSV (PCR) (Negative) Ur Strep pneumoniae Ag (Negative) Add-On Test Request
--- NOTE | 2022-10-12 07:43 | OTTR_ITS ---
Occupational Therapy Notes Occupational Therapy Inpatient Treatment Note Date: 10/12/22 PRECAUTIONS: Fall, Standard, DNR/DNI SUBJECTIVE: Pt states that she is doing well. She still has her tape on and notes that her hand feels stiff today. OT removed the tape to allow skin to breathe throughout the day. OBJECTIVE: Manual Therapy [id number]: OT performed AP mobs to pts digits at MP, IP and DIP and radial ulnar joint. Pt has increased tone and stiffness throughout. Then OT performed PROM to pts digits and wrist. She is tender on her extensor tendons but notes that this is better than her baseline level of function. She does need a custom resting hand orthosis and OT recommends that when pt is medically cleared per MD she get an outpatient referral for this. OT performed sup/pronation tone reduction techniques throughout. OT will monitor pts response to todays session and progress accordingly. TREATMENT CODES/TIME: 96625, 20 minutes Susan Sandhu OTR/[facility]
[2022-10-12] MEDS: Clopidogrel 75 MG TAB PO (07:51)
[2022-10-12] MEDS: Doxycycline Hyclate 100 MG CAP PO ×2 (07:51→20:34)
[2022-10-12] MEDS: Nystatin 500000 UNITS/5 ML SUSP 5ML CUP PO ×3 (07:51→20:34)
[2022-10-12] MEDS: Pantoprazole 40 MG TABCR PO (07:51)
[2022-10-12] MEDS: Rosuvastatin 10 MG TAB 40 MG PO (07:51)
[2022-10-12] MEDS: Multivitamin w/Minerals TAB 1 TAB PO (07:51)
[2022-10-12] MEDS: guaiFENesin 600 MG TABCR PO ×2 (07:51→20:34)
[2022-10-12] MEDS: Fluticasone NASAL SPRAY 16 GM BTL NS (07:52)
[2022-10-12] MEDS: predniSONE 20 MG TAB 40 MG PO (07:52)
[2022-10-12] MEDS: Aspirin E.C. 81 MG TABEC PO (07:52)
[2022-10-12] MEDS: tiZANidine 4 MG TABLET PO ×2 (07:52→20:34)
[2022-10-12] MEDS: Sertraline 100 MG TAB PO (07:52)
--- NOTE | 2022-10-12 08:58 | NUR.NOTE ---
Patient presented with a bloody nose. Was advised to pinch the bridge of her nose, apply pressure & lean forward. An ice pack was not needed at this time. Bleeding stopped within 2-3 mins. department chairperson was notified. Proper education was given. Will continue to monitor. Nursing Note:
[2022-10-12 09:59] LABS: Abs Immature Grans 0.09 10^3/uL (0.0-0.06); Absolute Basophil Count 0.01 10^3/uL (0.0-0.2); Absolute Eosinophil Count 0.03 10^3/uL (0.0-0.7); Absolute Lymphocyte Count 3.72 10^3/uL (1.2-3.4); Absolute Monocyte Count 0.97 10^3/uL (0.1-0.8); Absolute Neutrophil Count 9.88 10^3/uL (1.2-6.7); Basophils % 0.1; Eosinophils % 0.2; HCT 34.7 % (36.0-46.0); HGB 11.1 g/dL (11.2-15.7); Immature Grans % 0.6; Lymphocytes % 25.3; MCH 29.8 pg (27.0-33.0); MCV 93 fL (80-95); MPV 10.8 fL (8.0-11.0); Monocytes % 6.6; Neutrophils % 67.2; Platelet Count 184 10^3/uL (130-400); RBC 3.73 10^6/uL (3.93-5.22); RDW-SD 51.5 fL
[2022-10-12 11:30] LABS: Source Nasal/Nares
[2022-10-12 12:11] LABS: COVID-19 PCR Negative (Negative)
[2022-10-12 12:44] LABS: Lab Add On Test DONE
--- NOTE | 2022-10-12 14:28 | W.PM.PROGNOT ---
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 right side is dependent on her left cerebrovascular flow. She was begun on Plavix and ASA and already is on rosuvatatin w/ appropriately low LDL of 37 and total cholesterol 126. continue DAPT for at least 3 months, maybe longer since she was already on ASA as OP. per her daughter, the patient has another adult child who had CVA and who was resistant to Plavix. Family is unclear as to whether or not this member was tested for genetic resistance or not. As Kathleen had not been on Plavix at the time of this stroke and her CVA was associated w/ low BP, will not pursue testing at this time or change her to Prasugel. (2) COPD exacerbation: Status: Acute Assessment and plan: Patient's care discussed w/ Dr. Mixon. She has made recommendations to taper her prednisone to 40 mg x 5 day, 30 mg/d x 3d, 20 mg/d x3d, 10 mg/dx 3d, 5 mg/d x3d; decrease her Symbicort from 160 to 80, and change her Spiriva to her home Incruse, and decrease nebulizers to prn. Patient will need home nebulizer on discharge. Continue doxycycline x 5 days. Today is day #4 of her doxycycline (3) Acute bronchitis: Status: Acute Assessment and plan: as above (4) Elevated troponin: Status: Acute Assessment and plan: demand ischemia. No evidence of transmural SC. Echocardiogram demonstrated: Technically difficult study, poor parasternal views.? Apical views are adequate The left ventricle is moderately hypertrophied.? Cavity is small.? EF is 55%.? Wall motion is normal Right ventricular size and systolic function appears normal Left atrium is moderately dilated.? Right atrial size is normal Aortic valve is calcified without stenosis or regurgitation Severe mitral annular calcification.? Mild mitral regurgitation Normal tricuspid valve with mild regurgitation.? Estimated right ventricular systolic pressure is 55 mmHg Patient was diuresed and since being given diuretics her dyspnea has improved. However her BUN and creatinine have risen to 46 and 1.9. Diuretic held and today creatinine is 1.8. At home she was not on a diuretic other than HCTZ. (5) Pulmonary hypertension: Status: Acute Assessment and plan: estimated RVSP 55 mm on her echo, but RV reportedly normal size and function, only mild TR (6) JANNA (acute kidney injury): Status: Acute Assessment and plan: worsening azotemia d/t diuresis. diuretics stopped. monitor renal function. She probably will need some diuretics upon discharge to keep her right sided pressures lower. Dr. Mixon plans to repeat echo at later date when she is euvolemic. (7) DVT prophylaxis: Status: Acute Assessment and plan: SC heparin (8) Discharge planning issues: Status: Acute Assessment and plan: DNR/DNI Subjective Subjective Patient reports: no new complaints, feels better and afebrile; denies nausea, vomiting or shortness of breath Exam Narrative Exam Narrative: Kathleen is sitting up in her chair visiting w/ her daughter and granddaughter. Pleasant, cooperative, NAD. Lungs: Clear. Nonlabored breathing. Heart: RRR, soft systolic murmur over LLSB Abdomen: soft, nontender Legs: varicose veins but no edema Objective Last Vital Signs Temp 37.2 C 10/12/22 11:21 Pulse 62 10/12/22 11:21 Resp 18 10/12/22 11:21 BP 104/58 L 10/12/22 11:21 Pulse Ox 95 10/12/22 11:21 Laboratory Results - last 24 hr 10/07/22 10/08/22 10/12/22 10:45 Unknown 05:50 WBC RBC Hgb Hct MCV MCH MCHC RDW Plt Count MPV Immature Gran % Neutrophils % Lymphocytes % Monocytes % Eosinophils % Basophils % Nucleated RBC % Absolute Neutrophils Absolute Lymphocytes Absolute Monocytes Absolute Eosinophils Absolute Basophils Sodium 143 Potassium 4.0 Chloride 109 H Carbon Dioxide 25.7 Anion Gap 8.3 BUN 56 H Creatinine 1.8 H Est GFR (CKD-EPI 2020) 28.13 Glucose 91 Calcium 10.1 COVID-19 Source SARS-CoV-2 (PCR) M. pneumoniae Source Sputum M. pneumoniae (PCR) Negative Add-On Test Request DONE 10/12/22 10/12/22 05:50 11:00 WBC 14.70 H RBC 3.73 L Hgb 11.1 L Hct 34.7 L MCV 93 MCH 29.8 MCHC 32.0 RDW 15.0 H Plt Count 184 MPV 10.8 Immature Gran % 0.6 Neutrophils % 67.2 Lymphocytes % 25.3 Monocytes % 6.6 Eosinophils % 0.2 Basophils % 0.1 Nucleated RBC % 0.0 Absolute Neutrophils 9.88 H Absolute Lymphocytes 3.72 H Absolute Monocytes 0.97 H Absolute Eosinophils 0.03 Absolute Basophils 0.01 Sodium Potassium Chloride Carbon Dioxide Anion Gap BUN Creatinine Est GFR (CKD-EPI 2020) Glucose Calcium COVID-19 Source Nasal/Nares SARS-CoV-2 (PCR) Negative M. pneumoniae Source M. pneumoniae (PCR) Add-On Test Request Time Spent with Patient Time Spent with Patient: 25-34 minutes Time was spent: preparing to see the patient(eg.review tests), obtaining and/or reviewing separately otained hiistory, ordering medications,tests, procedures, referring, communicating with other health long term acute care registered nurse, indepentently interpreting results, care coordination and other (Speaking with family)
--- NOTE | 2022-10-12 16:39 | PDOC.CMPRO ---
- If Service Date Differs Date of service: 10/12/22 Time of Service: 16:39 Care Management Progress Note S/O: Kathleen was offered at bed at [facility], which she accepted. Anticipate she will discharge as soon as tomorrow. CM continues to follow. A: 81 year old female admitted to [facility] 10/06/22 for acute exacerbatino of COPD, acute CHF, hypotension P: Anticipate Kathleen will return home with new HH services vs SNF for short term rehab. PT is currently recommending SNF. She will transport via [facility] vs facility w/c van. She will follow up with her PCP and discharge plan of care. CM will continue to follow.
--- NOTE | 2022-10-12 17:26 | PT.INTREAT ---
Date of service: 10/12/22 Time of Service: 16:44 PT Notes Visit Reasons: Acute Exacerbation of COPD,Acute CHF,Hypotention Inpatient Physical Therapy Treatment Note [facility] Date: 10/12/22 Precautions: R-sided hemiparesis. Activity as tolerated. Fall risk. SUBJECTIVE: Feels much improved today. Denies shortness of breath and pain in R UE while using FWW. Agreeable to short-term SNF placement. OBJECTIVE: ? ? General observation: Supine in bed. On continuos oxygen saturation monitoring? Pain: Denies ? BED MOBILITY/TRANSFERS? Sit-supine: minimal assist with HOB at 30 degrees ? Sit-stand: contact guard assist, cues provided for R hand placement ? Stand-sit: contact guard assist, requires use of R UE for controlled descent onto chair? GAIT? Assistive Device: Eleazar-walker on right? Weight bearing: FWB Assist: Contact guard assist ? Distance:? 50 feet + 10 feet ? Deviation: Hemiplegic gait on L, flexor synergy in L UE more pronounced with walking. No wheezes heard early in the walk, beginning wheezing noted towards the end of walk but no desaturation. HR range from 78-110 bpm and oxygen saturation range from 90% to 93% on RA. Daughter Isabel provided wheelchair follow for safety. ? NEURO RE-ED: Training provided to increase motor control, coordination, accuracy of movement, and safety during bed mobility, transfers, and ambulation with moderate cueing provided for correct movement technique. Worked on increasing UE/LE muscle group strength with the following activity: - UE PNF patterns using with B hands clasped, R thumb under L hemiparetic thumb x 10 reps - B UE strengthening using yellow band using diagonal patterns, within painless range for the L UE, full range for the R UE - LAQ x 10 using 2 lb AW - Seated hip abduction x 10 against yellow TB - Trunk rotation to L and R ASSESSMENT:? Gait stability improving compared to day of admission. Activity tolerance increasing. Respiratory wheezing diminishing with activity. Motivation growing. PLAN: Continue mobility, strength, and balance progression to reduce fall risk and optimize mobility level per PT POC. DISCHARGE RECOMMENDATIONS: [] ? Home with no services [] [] ? Home with services [specify] [] ? Home with outpatient PT [] [X] ? SNF for continued rehabilitation.? Patient will benefit from [facility] facility placement for continued skilled physical therapy services in order to progress mobility level, strength, and balance in preparation for a safe discharge to home. [] ? [facility] [] [] ? SNF versus LTC based on ability to participate and progress [] TREATMENT CODE/TIME: Session 1 -- [id number] x 39 minutes beginning at 10:17 PM. Session 2-- [id number] 19 minutes beginning at 16:44 PM.
[2022-10-13 02:49] VITALS: BP 137/55; PULSE 59; RESP 20; TEMP 36.9; O2SAT 96
[2022-10-13 07:16] LABS: Absolute Lymphocyte Count 3.92 10^3/uL (1.2-3.4); Basophils % 0.1; Eosinophils % 0.3; HCT 34.4 % (36.0-46.0); HGB 11.4 g/dL (11.2-15.7); Immature Grans % 0.7; MCH 30.3 pg (27.0-33.0); MCHC 33.1 % (32.0-36.0); MCV 92 fL (80-95); MPV 10.6 fL (8.0-11.0); Monocytes % 6.1; Neutrophils % 65.8; Platelet Count 200 10^3/uL (130-400); RBC 3.76 10^6/uL (3.93-5.22); RDW 14.6 % (11.7-14.6)
[2022-10-13 07:17] LABS: Absolute Basophil Count 0.01 10^3/uL (0.0-0.2); Absolute Eosinophil Count 0.04 10^3/uL (0.0-0.7); Absolute Monocyte Count 0.88 10^3/uL (0.1-0.8); Absolute Neutrophil Count 9.54 10^3/uL (1.2-6.7)
[2022-10-13 07:25] LABS: Anion Gap 11.9 mmol/L (3-11); BUN 61 mg/dL (7-18); CO2 25.1 mmol/L (21.0-32.0); CREATININE 1.7 mg/dL (0.55-1.02); Calcium 9.5 mg/dL (8.5-10.1); Chloride 107 mmol/L (98-107); Estimated GFR 30.13 (mL/min/1.73m2); Glucose 87 mg/dL (74-106); Potassium 3.5 mmol/L (3.5-5.1); Sodium 144 mmol/L (136-145)
--- NOTE | 2022-10-13 07:33 | W.PM.DS.N ---
Date of service: 10/13/22 Time of Service: 07:34 DS: Diagnosis Discharge Diagnosis (1) Ischemic cerebrovascular accident (CVA) due to atherosclerosis of large extracranial artery: Status: Acute Asessment and Plan: Ms. Jaffe has had an acute right hemisphere stroke manifested by acute on chronic left hemiparesis and dysarthria.? Etiology is likely secondary to hypotension in the setting of known R carotid artery occlusion; however, thrombii from the top of the stump remains in the differential as well.? updated lipid panel and A1c to reduce vascular risk factors: A1c of 6.9. LDL 37. DAPT x 90 days, after which she should be switched to clopidogrel 75mg daily only.? Hypotension should be absolutely avoided given R carotid and vertebral occlusions.? She has a moderate L internal carotid stenosis.? This will need to be monitored outpatient. (2) COPD exacerbation: Status: Acute Asessment and Plan: Dr Mixon with pulmonary medicine consulted. - prednisone to 40mg for 5 days, 30mg for 3 days, 20mg for 3 days, 10mg for 3 days, 5mg for 3 days - Symbicort 80 - continue home Incruse -prn albuterol MDI - finished doxycycline for a total course of 5 days - Dr Mixon to see her in follow up as an outpatient (3) Acute bronchitis: Status: Acute Asessment and Plan: Treated with doxycycline. (4) Elevated troponin: Status: Acute Asessment and Plan: Secondary to hypotensive event. 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 continue lasix for another 24hr (5) Pulmonary hypertension: Status: Acute Asessment and Plan: Dr Mixon planning to repeat echocardiogram as an outpatient to reassess pulmonary artery pressure at euvolemia. (6) JANNA (acute kidney injury): Status: Acute Asessment and Plan: Mild; now back at baseline creatinine of 1.7. (7) Discharge planning issues: Status: Acute Asessment and Plan: Accepted at [facility] for rehab efforts. Discharge Plan Disposition Patient Disposition: [facility]) Condition: Improving Discharge Details Reason For Visit: Acute Exacerbation of COPD,Acute CHF,Hypotention Admit Date/Time: 10/06/22 23:40 Admit Provider: Tammi Barnard Attending Provider: Tammi Barnard Primary Care Provider: Samir Casillas Hospital Course Hospital Course: Ms Jaffe is a 81 year old female with PMHx of non-oxygen dependent COPD, as well as CVA w/ L-sided weakness, R>L carotid stenosis, and ?seizures vs tremors in the past, not on anticonvulsant therapy currently,? HTN, tobacco abuse, adjustment disorder, who was discharged from [facility] on 09/27/22 after an admission for an exacerbation of COPD, who was brought to [facility] ED by ambulance today after being found by the neighbor to be staring off to the left and not responding. The patient does not recall how she got to the hospital - the last thing she remembers is sitting at the table in the kitchen, probably trying to fall asleep. The patient states that 4 days prior to presentation she had multiple bouts of diarrhea that left her feeling weak. This has since resolved. Two days prior, she developed worsening shortness of breath and cough. Denies fevers. The patient saw her PCP on day of this admission reporting? cough with increased sputum production (yellow). She was started on cefuroxime for a COPD exacerbation. The patient thinks she had overexerted herself. When EMS arrived, the patient was hypotensive (70/30). She was given 1.5 L of IVF by EMS, which, reportedly, made her breathing worse though it did improve her BP. In the ER, she was started on BiPAP, given a dose of IV furosemide 20 mg, nebulizer treatments (which resulted in her going into sinus tachycardia in 140s), solumedrol 80 mg x1, ativan. The patient then again became hypotensive (89/40). At this point, she was taken off of BiPAP and given a bolus of IVF. While her procalcitonin was negative, the patient received zosyn due to the purulent description of her sputum. Her imaging does show fluid overload but no clear infiltrate. CT of the head was negative. The patient is DNR, DNI, and had requested ER staff to not place her back on BiPAP at the time of admission. See diagnosis Dr Mixon is arranging f/u with her in pulmonary clinic. Home Meds and New Rx's Prescriptions: New prednisone 20 mg Tablet See Rx Instructions .ROUTE .COMPLEX Qty: 28 0RF Rx Instructions: Starting on 10/14; 4 tabs daily for 2 days, then 3 for 3 days, then 2 for 3 days, then 1 for 3 days, then 1/2 for 3 days. mometasone 0.1 % Cream 0 g topical BID Qty: 0 0RF budesonide-formoterol [Symbicort] 80-4.5 mcg/actuation Hfa Aerosol Inhaler 2 puff inhalation BID Qty: 0 0RF clopidogrel 75 mg Tablet 75 mg PO DAILY Qty: 0 0RF pantoprazole 40 mg Tablet,Delayed Release (Dr/Ec) 40 mg PO DAILY@0730 Qty: 0 0RF docusate sodium [Colace] 100 mg Capsule 100 mg PO TID PRN PRNQty: 0 0RF Inhaler, Assist Devices [Pocket Chamber] 1 ea miscellaneous DIRECTED Qty: 0 0RF Continued lisinopril-hydrochlorothiazide 20-25 mg tablet 1 tab PO DAILY Qty: 90 1RF Centrum Silver Women 8 mg iron-400 mcg-300 mcg tablet 1 tab PO DAILY ketoconazole 2 % shampoo 1 applic topical .Twice a week PRN (Reason: seborrheic derm) Qty: 120 0RF Rx Instructions: Apply to wet scalp twice a week, leave on for 3-5 minutes, then rinse well. use for 2-4 weeks Incruse Ellipta 62.5 mcg/actuation blister with device 1 inh inhalation DAILY Qty: 30 12RF rosuvastatin 40 mg tablet 40 mg PO DAILY Qty: 90 3RF tizanidine 4 mg tablet 4 mg PO BID Patient Comments: TAKE ONE TABLET BY MOUTH TWICE A DAY fluticasone propionate [Flonase Allergy Relief] 50 mcg/actuation spray,suspension 1 spray intranasal DAILY Rx Instructions: administer into each nostril aspirin 81 mg tablet,delayed release (DR/EC) 81 mg PO DAILY Patient Comments: TAKE ONE TABLET BY MOUTH EVERY DAY sertraline 100 mg tablet 100 mg PO DAILY albuterol sulfate 90 mcg/actuation HFA aerosol inhaler 2 puff inhalation 6XD PRNQty: 8.5 0RF Discontinued benzonatate 100 mg capsule 100 mg PO DAILY Patient Comments: Patient takes 100 mg daily Rx Instructions: Take 1-2 capsules by mouth three times a day as needed for cough doxycycline hyclate 100 mg capsule 100 mg PO BID Qty: 8 0RF Discharge Instructions Activity:: Activity as Tolerated Equipment/Supplies:: No Equipment Needed Diet:: Heart Healthy DS: Summary Time Spent with Patient providing and/or coordinating discharge services: Greater than 30 minutes Status at Discharge Functional status at discharge: uses cane/walker Overall status at discharge: patient is progressing back to baseline Mental Status: mental status grossly normal Speech and Movement: speech clear Mood: congruent mood Affect: blunted Exam Psych Mental Status: mental status grossly normal Speech and Movement: speech clear Mood: congruent mood Affect: blunted DS: Data Vitals/I&O Vitals and I&O: Vital Signs Temperature 36.9 C 10/13/22 02:49 Temperature Source Tympanic 10/13/22 02:49 Pulse 59 L 10/13/22 02:49 Pulse Rhythm Regular 10/12/22 23:15 Pulse 82 10/07/22 10:01 Respiratory Rate 20 10/13/22 02:49 Respiratory Effort Normal, Non-Labored 10/12/22 23:15 Respiratory Depth Normal 10/12/22 23:15 Respiratory Pattern Normal 10/12/22 23:15 Blood Pressure 137/55 L 10/13/22 02:49 Blood Pressure Mean 90 10/07/22 10:00 Blood Pressure Position Supine 10/07/22 04:00 Pulse Oximetry 96 10/13/22 02:49 Oxygen Delivery Method Room Air 10/13/22 02:49 Oxygen Flow Rate 0 10/13/22 02:49 Fraction of Inspired Oxygen (FIO2) 30 10/07/22 08:15 Pain Level 0 10/13/22 02:49 Comment pt denies pain 10/11/22 15:01 Intake & Output 10/12/22 10/12/22 10/13/22 11:59 23:59 11:59 Intake Total 310 / 1150 840 / 1150 Output Total 700 / 1450 750 / 1450 850 / 850 Balance -390 / -300 90 / -300 -850 / -850 Weight 49.2 kg Intake: IV Oral 300 / 1140 840 / 1140 Output: Urine 700 / 1450 750 / 1450 850 / 850 Other: Urine Color Yellow Yellow Yellow Urine Appearance Clear Clear Clear Urine Odor None Normal Normal Stool Size Small Small Stool Characteristics Soft Formed Voiding Methods Bedside Commode Bedside Commode Bedside Commode Data Completed and Pending Labs on day of discharge: Labs from last 24 hours 10/13/22 10/13/22 10/12/22 07:00 07:00 11:00 WBC 14.50 H RBC 3.76 L Hgb 11.4 Hct 34.4 L MCV 92 MCH 30.3 MCHC 33.1 RDW 14.6 Plt Count 200 MPV 10.6 Immature Gran % 0.7 Neutrophils % 65.8 Lymphocytes % 27.0 Monocytes % 6.1 Eosinophils % 0.3 Basophils % 0.1 Nucleated RBC % 0.0 Absolute Neutrophils 9.54 H Absolute Lymphocytes 3.92 H Absolute Monocytes 0.88 H Absolute Eosinophils 0.04 Absolute Basophils 0.01 Sodium 144 Potassium 3.5 Chloride 107 Carbon Dioxide 25.1 Anion Gap 11.9 H BUN 61 H Creatinine 1.7 H Est GFR (CKD-EPI 2020) 30.13 Glucose 87 Calcium 9.5 COVID-19 Source Nasal/Nares SARS-CoV-2 (PCR) Negative Add-On Test Request 10/12/22 10/08/22 05:50 Unknown WBC 14.70 H RBC 3.73 L Hgb 11.1 L Hct 34.7 L MCV 93 MCH 29.8 MCHC 32.0 RDW 15.0 H Plt Count 184 MPV 10.8 Immature Gran % 0.6 Neutrophils % 67.2 Lymphocytes % 25.3 Monocytes % 6.6 Eosinophils % 0.2 Basophils % 0.1 Nucleated RBC % 0.0 Absolute Neutrophils 9.88 H Absolute Lymphocytes 3.72 H Absolute Monocytes 0.97 H Absolute Eosinophils 0.03 Absolute Basophils 0.01 Sodium Potassium Chloride Carbon Dioxide Anion Gap BUN Creatinine Est GFR (CKD-EPI 2020) Glucose Calcium COVID-19 Source SARS-CoV-2 (PCR) Add-On Test Request [facility] All Active Problems Diarrhea (Acute) Advance care planning (Acute) Palliative care encounter (Acute) Pulmonary nodules/lesions, multiple (Acute) Pulmonary hypertension (Acute) Ischemic cerebrovascular accident (CVA) due to atherosclerosis of large extracranial artery (Acute) Elevated troponin (Acute) Left hemiparesis (Acute) 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 occlusion (Acute) Hypotension (Acute) JANNA (acute kidney injury) (Acute) Discharge planning issues (Acute) DVT prophylaxis (Acute) Unresponsive episode (Acute) Acute bronchitis (Acute) Hypoxia (Acute) Acute CHF (Acute) COPD exacerbation (Acute) Chronic obstructive lung disease (Chronic) PFT'S 2009 FEV 1.15=59% continues to smoke Constipation (Chronic 11/14/17) Essential hypertension (Chronic 03/30/13) Lumbago (Chronic 05/10/13) Peripheral vascular disease (Acute) [place] [facility] [place] [facility] [place] Polyp of colon (Acute) tubular adenoma Shoulder arthralgia (Chronic) Carotid stenosis, left (Acute) 50-69% stenosis 04/2022; complete obstruction right internal carotid. Anxiety about health (Acute) Grief reaction (Chronic) Spouse 08/13/21 passed Hand pain, left (Acute) CVA (cerebral vascular accident) (Chronic) Neuro est. between 04/2020-11/2021 Counseling regarding advanced directives and goals of care (Acute) Dilated bile duct (Acute ~02/2022) s/p ERCP [facility], 10mm dilation, no masses. Due repeat MRI in 10/2022. Left rotator cuff tear arthropathy (Chronic) 40 mg Depo-Medrol injection: 04/13/2022 Nail dystrophy (Acute) Left upper quadrant abdominal pain (Acute) Seborrheic dermatitis of scalp (Acute) Productive cough (Acute) History of tobacco abuse (Acute) Medical History Disorder of ear, left Diverticulitis of colon H/O SIGMOID COLECTOMY Hyperlipidemia Perichondritis Seizures Smoker (10/19/16) Surgical History Extraction of cataract B/L 04/2013 Ligation of fallopian tube Rotator Cuff Repair RIGHT S/P partial colectomy Trigger Finger release WRIST/THUMB SURGERY LEFT THUMB LEFT WRIST RIGHT THUMB Family History Mother Diabetes Essential hypertension Stroke Father , 55 Heart disease Stroke Brother , 71 Complications from surgery No problems noted. Son No problems noted. Son No problems noted. Daughter No problems noted. Daughter No problems noted. Social History Smoking/Tobacco Use Status: Current every day Tobacco Type: cigarettes Smoking packs per day: 0.5 Smoking cigarettes per day: 10.0 Years smoked: 63 Smoking pack-years: 31.50 Tobacco: How many years used: 63 Quit status: considering quitting Second Hand Exposure: Yes Smoking risk assessment performed?: Yes Alcohol Intake: never Drug use: Rarely Counseling given: No Counseling provided: none Caregiver/Support person: No Household members: none Housing: house Number of Children: 4 Communication Needs: Hard of Hearing Do you need help understanding health information?: Rarely Pets and animals: Yes Pets and animals: dog(s) Sexually active: No Do you think of yourself as: straight/heterosexual Current gender identity: female What is your relationship status?: How often do you talk on the phone with friends or family?: three or more times per week Do you belong to any clubs or organized social groups?: no Panel score (0-1 are the most socially isolated patients): 1 What type of physical activity do you participate in: none Darlene/Zoroastrian: No preference Special darlene needs: No Seatbelt use: always Helmet use: No Drive intox or ride w/intox chair car driver: No Do you feel safe at home: Yes Do you feel safe in your relationship?: Yes Time Spent with Patient Time Spent with Patient: 45-69 minutes Time was spent: preparing to see the patient(eg.review tests), referring, communicating with other health residential care officer, indepentently interpreting results and care coordination
[2022-10-13 07:35] VITALS: BP 147/60; PULSE 71; RESP 18; TEMP 37.1; O2SAT 94
[2022-10-13] MEDS: guaiFENesin 600 MG TABCR PO (08:34)
[2022-10-13] MEDS: Pantoprazole 40 MG TABCR PO (08:34)
[2022-10-13] MEDS: Fluticasone NASAL SPRAY 16 GM BTL NS (08:34)
[2022-10-13] MEDS: Nystatin 500000 UNITS/5 ML SUSP 5ML CUP PO (08:34)
[2022-10-13] MEDS: Multivitamin w/Minerals TAB 1 TAB PO (08:35)
[2022-10-13] MEDS: Aspirin E.C. 81 MG TABEC PO (08:35)
[2022-10-13] MEDS: predniSONE 20 MG TAB 40 MG PO (08:35)
[2022-10-13] MEDS: tiZANidine 4 MG TABLET PO (08:35)
[2022-10-13] MEDS: Sertraline 100 MG TAB PO (08:36)
[2022-10-13] MEDS: Clopidogrel 75 MG TAB PO (08:36)
[2022-10-13] MEDS: Rosuvastatin 10 MG TAB 40 MG PO (08:36)
[2022-10-13] MEDS: Doxycycline Hyclate 100 MG CAP PO (08:36)
[2022-10-13] MEDS: Budesonide/Formoterol 80/4.5 6.9 GM 60 PUFF INH IH (08:49)
[2022-10-13] MEDS: Umeclidinium 7 CAP INHALER 1 CAP IH (08:49)
[2022-10-13] MEDS: Normal Saline Flush 10 ML SYR IVP (09:22)
--- NOTE | 2022-10-13 09:29 | OTDS_ITS ---
Occupational Therapy Notes Occupational Therapy Inpatient Discharge Summary Date: 10/13/22 Dates of Service:10/08/22-10/13/22 Referring Doctor:Tammi Barnard MD OT Orders: Urgent Precautions: Fall, Standard, DNR/DNI PATIENT PROFILE/ADMITTING DIAGNOSIS: Pt is a 81 year old female who was admitted through the ED for the dx of??with dx of HTN, hyperlipidemia,s/p? stroke, (R)? 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 She was recently admitted to [facility] for similar symptoms and was seen prior in the outpatient setting for her (L) UE. Past Medical History: All Active Problems Hypotension (Acute) JANNA (acute kidney injury) (Acute) Discharge planning issues (Acute) DVT prophylaxis (Acute) Unresponsive episode (Acute) Acute bronchitis (Acute) Hypoxia (Acute) Acute CHF (Acute) COPD exacerbation (Acute) Chronic obstructive lung disease (Chronic) PFT'S 2009 FEV 1.15=59% continues to smoke Constipation (Chronic 11/14/17) Essential hypertension (Chronic 03/30/13) Lumbago (Chronic 05/10/13) Peripheral vascular disease (Acute) Jul 2014 [facility] [place]orto bifem bypass LEFT ILIAC STENT [facility] [place] 03/2010 Polyp of colon (Acute) tubular adenoma Shoulder arthralgia (Chronic) Carotid stenosis, left (Acute) 50-69% stenosis 04/2022; complete obstruction right internal carotid.Anxiety about health (Acute) Grief reaction (Chronic) Spouse? 08/13/21 passedHand pain, left (Acute) CVA (cerebral vascular accident) (Chronic) Neuro est. between 04/2020-ounseling regarding advanced directives and goals of care (Acute) Dilated bile duct (Acute ~02/2022) s/p ERCP [facility], 10mm dilation, no masses.? Due repeat MRI in 10/2022.Left rotator cuff tear arthropathy (Chronic) 40 mg Depo-Medrol injection: 04/13/2022Nail dystrophy (Acute) Left upper quadrant abdominal pain (Acute) Seborrheic dermatitis of scalp (Acute) Productive cough (Acute) History of tobacco abuse (Acute) Medical History Disorder of ear, left Diverticulitis of colon H/O SIGMOID COLECTOMY Perichondritis Smoker (10/19/16) Surgical History? Extraction of cataract B/L 04/2013Ligation of fallopian tube Rotator Cuff Repair RIGHTS/P partial colectomy Trigger Finger release WRIST/THUMB SURGERY LEFT THUMB LEFT WRIST RIGHT THUMB Equipment owned/DME: beronica walker SUBJECTIVE:??NT OBJECTIVE:? FUNCTIONAL MOBILITY/ADLS:? Transfers with beronica walker in (R) UE Sit-Stand CGA Stand-sit CGA Bed-Chair CGA BATHING seated position with max (A) set up/clean up Bathing UE (I) face with (R) UE and abdomen with (R) UE, max (A) for (B) UE and under abdomen/nikita area Bathing LE min (A) DRESSING seated postion Dressing UE mod (A) [facility] gown Dressing LE NT GROOMING max (A) with brushing hair TOILETING on commode max (A) with toileting hygiene EATING seated in chair (I) with (R) UE BALANCE: Static sitting Normal Dynamic Sitting Good Static Standing Fair Dynamic Standing Poor without (A) ASSESSMENT:?? Patient is a 81-year-old female referred to occupational therapy services?with diagnosis of hypertension, hyperlipidemia,s/p? stroke, (R)? caroti d and vertebral artery occlusions, peripheral vascular disease, L arm tremor which pt had prior , R eye blindness s/p R CRVO, R CN4 palsy, COPD, and chronic kidney disease.? GOALS Goals x1 week 1.? Transfers with (S) 2.? Dressing (I) UE, mod (I) LE 3.? Bathing (I) in seated position 4.? Toileting on toilet (I) 5.? Eating (I) PLAN OF CARE/TREATMENT PLAN: Plan is for pt to be discharged today to SNF when medically cleared per MD. DISCHARGE RECOMMENDATIONS Home with HH PT vs. short term stay at SNF OT recommends an outpatient OT eval for fabrication of resting hand orthosis for (L) UE TREATMENT TIME/MINUTES/CODES N/A Susan Sandhu, OTR/L [facility] [place], [place]
--- NOTE | 2022-10-13 10:18 | CMDISCH_ITS ---
- If Service Date Differs Date of service: 10/13/22 Time of Service: 10:18 LACE Index Scoring Tool - Questions: Length of Stay (in days): 7 - 13 Acuity (Admit via E.D.?): Yes Comorbidities: Chronic Pulmonary Disease E.D. Visits: 3 - Answers: Total Score: 13 Risk of Readmission: High Risk Care Management Discharge Reason for Hospitalization: Acute exacerbation of COPD, Acute CHF, Hypotension Discharge Plan: Kathleen is discharged to [facility] ([facility]) for STR prior to discharging home. Kathleen will follow up with facility and community providers and her discharge plan of care as prescribed. Patient/Family Education Needs: Review discharge instructions, limitations, medications and plan to follow up with community providers. Discuss ask me three. Services Needed at Discharge: Custodial Facility ([facility], [facility]), Transportation ([facility])
[2022-10-13 11:12] VITALS: BP 100/38; PULSE 64; RESP 17; TEMP 37.2; O2SAT 94
[2022-10-13 12:45] VITALS: BP 117/66; RESP 20; O2SAT 95
[2022-10-13] MEDS: LORazepam 0.5 MG TAB PO (13:11)
--- NOTE | 2022-10-14 09:03 | PT.INDS ---
Date of service: 10/13/22 PT Notes Visit Reasons: Acute Exacerbation of COPD,Acute CHF,Hypotention Physical Therapy Inpatient Dsicharge Summary Date: 10/12/2022 Dates of Service: 10/08/2022 through 10/12/2022 This is a clinical summary of care provided for the duration of dates listed above. No charge was made in the completion of this documentation. Referring Doctor: Tammi Barnard? PT Orders: PT CONSULT: Limited ability Precautions: Fall. Standard. Activity as tolerated.? L-sided hemiparesis from previous stroke. Patient Profile/Admitting Diagnosis:? Kathleen is a 81-year-old female who presented to the ED on 10/26/2022 due to fatigue and shortness of breath.? Patient is admitted for management of COPD exacerbation, acute CHF, acute bronchitis, hypotension, hypoxia, acute kidney injury.? Per Dr. Germain, patient has acute on chronic left hemiparesis and dysarthria.? PMHX: All Active Problems Hypotension (Acute) JANNA (acute kidney injury) (Acute) Discharge planning issues (Acute) DVT prophylaxis (Acute) Unresponsive episode (Acute) Acute bronchitis (Acute) Hypoxia (Acute) Acute CHF (Acute) COPD exacerbation (Acute) Chronic obstructive lung disease (Chronic) PFT'S 2009 FEV 1.15=59% continues to smoke Constipation (Chronic 11/14/17) Essential hypertension (Chronic 03/30/13) Lumbago (Chronic 05/10/13) Peripheral vascular disease (Acute) [place] [facility] [place] [facility] [place] Polyp of colon (Acute) tubular adenoma Shoulder arthralgia (Chronic) Carotid stenosis, left (Acute) 50-69% stenosis 04/2022; complete obstruction right internal carotid. Anxiety about health (Acute) Grief reaction (Chronic) Spouse? 08/13/21 passed Hand pain, left (Acute) CVA (cerebral vascular accident) (Chronic) Neuro est. between 04/2020-ounseling regarding advanced directives and goals of care (Acute) Dilated bile duct (Acute ~02/2022) s/p ERCP [facility], 10mm dilation, no masses.? Due repeat MRI in 10/2022. Left rotator cuff tear arthropathy (Chronic) 40 mg Depo-Medrol injection: 04/13/2022 Nail dystrophy (Acute) Left upper quadrant abdominal pain (Acute) Seborrheic dermatitis of scalp (Acute) Productive cough (Acute) History of tobacco abuse (Acute) Medical History Disorder of ear, left Diverticulitis of colon H/O SIGMOID COLECTOMY Perichondritis Smoker (10/19/16) Surgical History? Extraction of cataract B/L 04/2013 Ligation of fallopian tube Rotator Cuff Repair RIGHTS/P partial colectomy Trigger Finger release WRIST/THUMB SURGERY LEFT THUMB LEFT WRIST RIGHT THUMB Social History/Home Situation: Patient lives alone in a private home.? States that she has a son and a daughter who live close by.? Independent with all mobility ADLs using hemiwalker.? Used to be able to walk up to 30 feet safely.? Rides RCT for her grocery shopping and doctor's appointments. Equipment Owned/DME: Hemiwalker, SPC, emergency alert device Subjective: NT. See most recent PRINCIPAL CONSULTANT notes. Objective: General Observation: NT. See most recent PRINCIPAL CONSULTANT notes. Mental Status: NT. See most recent PRINCIPAL CONSULTANT notes. Pain: NT. See most recent PRINCIPAL CONSULTANT notes. ROM: Right Upper Extremity: ? Shoulder Flexion WFL. Shoulder abduction WFL. Elbow flexion WFL. Wrist flexion WFL. Functional opening and closing of hand WFL. Left Upper Extremity:? Shoulder Flexion allows up to 60 degrees with pain report at EOR. Shoulder abduction allows up to 40 degrees with pain report at EOR. Elbow flexion allows up to 90 degrees. Wrist flexion less than 25% of AROM. Functional opening and closing of hand limited. Right Lower Extremity: Hip flexion WFL. Hip abduction WFL. Knee flexion WFL. Ankle dorsiflexion WFL. Ankle plantarflexion WFL. Left Lower Extremity: Hip flexion allows up to 90 degrees. Hip abduction allows up to 20 degrees.? Knee flexion 30 degrees to 90 degrees. Ankle dorsiflexion to neutral only. Ankle plantarflexion about 10 degrees. Strength: Right Upper Extremity: Shoulder flexors 4-/5. Shoulder abductors 4-/5. Elbow flexors 4-/5. Elbow extensors 4-/5. Television Presenter weak. Left Upper Extremity: Shoulder flexors 3-/5. Shoulder abductors 3-/5. Elbow flexors 3-/5. Elbow extensors 3-/5. Television Presenter weak. Right Lower Extremity: Hip flexors 4-/5. Hip abductors 4-/5. Knee flexors 4-/5. Knee extensors 4-/5. Ankle dorsiflexors 4-/5. Ankle plantarflexors 4-/5. Left Lower Extremity: Hip flexors 3-/5. Hip abductors 3-/5. Knee flexors 3-/5. Knee extensors 2-/5. Ankle dorsiflexors 2-/5. Ankle plantarflexors 3-/5. BED MOBILITY/TRANSFERS? Sit-supine: minimal assist with HOB at 30 degrees ? Sit-stand: contact guard assist,? cues provided for R hand placement ? Stand-sit: contact guard assist,? requires use of R UE for controlled descent onto chair? GAIT? Assistive Device: Eleazar-walker on right? Weight bearing: FWB Assist: Contact guard assist ? Distance:? 50 feet + 10 feet ? Deviation: Hemiplegic gait on L,? flexor synergy in L UE more pronounced with walking.? No wheezes heard early in the walk,? beginning wheezing noted towards the end of walk but no desaturation.? HR range from 78-110 bpm and oxygen saturation range from 90% to 93% on RA.? Daughter Isabel provided wheelchair follow for safety.? NEURO RE-ED: Training provided to increase motor control, coordination,? accuracy of movement, and safety during bed mobility,? transfers, and ambulation with moderate cueing provided for correct movement technique.? Worked on increasing UE/LE muscle group strength with the following activity: - UE PNF patterns using with B hands clasped, R thumb under L hemiparetic thumb x 10 reps - B UE strengthening using yellow band using diagonal patterns,? within painless range for the L UE,? full range for the R UE - LAQ x 10 using 2 lb AW - Seated hip abduction x 10 against yellow TB - Trunk rotation to L and R Balance: Static Sitting: Good Dynamic Sitting: Fair Static Standing: Fair Dynamic Standing: Fair Special Tests: Mobility Limitations Standardized Measure [facility] AM-PAC 6 clicks Basic Mobility Inpatient Short Form: Raw Score: 21? CMS Score: 29% deficit? ? ? NEURO: Spasticity/Hypertonicity in L UE/LE 4-stage Balance Test deferred Abnormal flexion synergy in L UE,? extension synergy in L LE Babinski Reflex present in L LE L hemineglect in L UE/LE Mild trunk lean to R Assessment: Gait stability improving compared to day of admission.? Activity tolerance increasing.? Respiratory wheezing diminishing with activity. Motivation growing.? Awareness of midline remains impaired.? Hemiparetic gait pattern increases risk for falls. ? Patient presents with clinical signs and symptoms consistent with current/admitting diagnoses that have resulted to mobility limitations, gait instability, generalized weakness, and overall ADL decline as demonstrated by the following impairment level findings: 1.? Decreased strength to L UE/LE major muscle groups 2.? Impaired sitting/standing balance 3.? Impaired activity tolerance 4.? Limitation of joint range of motion in L UE/LE 5.? Shortness of breath 6.? Pain in L shoulder from L rotator cuff tear and pre-existing L sided-hemiparesis Impairments are contributing to the following functional limitations: 1.? Decline in bed mobility skills 2.? Decline in transfer skills 3.? Difficulty with ambulation without assistive device and physical assistance 4.? Increased completion time for mobility ADL performance 5.? Increased risk for falls 6.? Difficulty with managing steps alone safely Patient is assessed as a 48718 moderate complexity based on the following: History: 81-year-old female with past medical history as indicated above Examination: Demonstrable impairment in strength, balance, and mobility level with underlying impairments and functional limitations as exhibited above as well as deficit score of 69% utilizing the [facility] Mobility Inpatient Short Form Presentation: Evolving Decision Makin moderate complexity Goals: Goals X1 week 1. Supine-Sit independent NOT MET 2. Sit-Supine independent NOT MET 3. Sit-Stand independent NOT MET 4. Stand-Sit independent with hemiwalker NOT MET 5. Bed-Chair independent with hemiwalker NOT MET 6. Chair-Bed independent with hemiwalker NOT MET 7. Independent gait on level surface with use of hemiwalker for at least 100 feet without report of pain nor dyspnea NOT MET 8. Independent stair negotiation while holding onto R rail rails for at least 3 steps without report of pain nor dyspnea NOT MET 9. Independent with home exercise program NOT MET 10. Good static and dynamic standing balance/tolerance NOT MET DISCHARGE RECOMMENDATIONS: [] ? Home with no services [] [] ? Home with services [specify] [] ? Home with outpatient PT [] [X] ? SNF for continued rehabilitation.? Patient will benefit from [facility] facility placement for continued skilled physical therapy services in order to progress mobility level, strength, and balance in preparation for a safe discharge to home. [] ? [facility] [] [] ? SNF versus LTC based on ability to participate and progress [] TREATMENT CODE/TIME: NC Thank you for the opportunity to participate in the care of this patient. Rebecca Regan PT, DPT, CLT [facility] [place], [place]
== END 2022-10-13 13:18 | disposition skilled nursing facility (03) | DRG 190 ==
LOC: ER 10-07 01:20 → ICU 10-07 01:27 → MS 10-07 14:38
PROVIDERS: Family Medicine; Internal Medicine; Admitting Provider Internal Medicine; Emergency Provider Physician Assistant; PCP Nurse Practitioner Family; Visit Provider Internal Medicine
DX: J44.0 Chronic obstructive pulmonary disease with (acute) lower respiratory infection (principal); I63.233 Cerebral infarction due to unspecified occlusion or stenosis of bilateral carotid arteries; I24.8 Other forms of acute ischemic heart disease; I69.354 Hemiplegia and hemiparesis following cerebral infarction affecting left non-dominant side; N17.9 Acute kidney failure, unspecified; I50.30 Unspecified diastolic (congestive) heart failure; J44.1 Chronic obstructive pulmonary disease with (acute) exacerbation; R47.1 Dysarthria and anarthria; J20.9 Acute bronchitis, unspecified; I11.0 Hypertensive heart disease with heart failure; I95.9 Hypotension, unspecified; R41.89 Other symptoms and signs involving cognitive functions and awareness; R40.4 Transient alteration of awareness; R09.02 Hypoxemia; K59.00 Constipation, unspecified; M54.50 Low back pain, unspecified; I73.9 Peripheral vascular disease, unspecified; Z90.49 Acquired absence of other specified parts of digestive tract; F17.210 Nicotine dependence, cigarettes, uncomplicated; R25.1 Tremor, unspecified; Z66 Do not resuscitate; R29.810 Facial weakness; I48.91 Unspecified atrial fibrillation; I27.20 Pulmonary hypertension, unspecified; R91.8 Other nonspecific abnormal finding of lung field
CPT/HCPCS: 36415; 36416; 70544; 71275; 76604; 76770; 80048; 80053; 80061; 82550; 82805; 82962; 84145; 87040; 87081; 87449; 87493; 87635; 87637; 92610; 93005; 93306; 93308; 94640; 96360; 96365; 96375; 97110; 97112; 97140; 97163; 97167; 97530; 97535; 99223; 99285; 70450; 70551; 71045; 71046; 81003; 82565; 83036; 83605; 83735; 83880; 84100; 84132; 84484; 84540; 85025; 85379; 86140; 87070; 87205; 87581; 87899; 93010; 93880; 93970; 94660; 94664; 94668; 94760; 99231; 99232; 99233; 99239; 99291; J1644; J1940; J1941; J2060; J2270; J2543; J2930; J3480; J3490; J7512; J7614; J7644

== ENCOUNTER → 2022-10-07 07:09 | Outpatient (BNVA) | payer MEDICARE, OTHER, SELFPAY | PROVIDERS: PCP Nurse Practitioner Family; Referring Provider Nurse Practitioner Family; Visit Provider Psychiatry & Neurology Neurology ==

== ENCOUNTER 2022-11-18 07:44 | Inpatient (IN) | payer MEDICARE, OTHER, SELFPAY ==
[2022-11-18] VITALS (79 sets, daily range): BP systolic 95–151; BP diastolic 27–103; PULSE 66–112; RESP 14–32; TEMP 36.4–37.4; O2SAT 87–99
--- NOTE | 2022-11-18 07:45 | RT.EKG_ITS ---
APPROVED REPORT Exam: Resting ECG Reason for Exam: sob Patient Location: E HR:97 bpm ECG Measurements Heart Rate 97 AXIS OR 141 P 75 QRSd 75 QRS 27 QT 351 T 68 QTc 439 Conclusion Sinus rhythm...normal P axis, V-rate 60- 99 Ventricular premature complex...V complex w/ short R-R interval. Sinus. Normal axis. PVCs. Normal intervals. No STEMI. I have reviewed and interpreted ECG and agree with software generated interpretation.
--- NOTE | 2022-11-18 08:30 | DI.US_ITS ---
Exam(s) US LOWER EXTREMITY VENOUS RT EXAM: US LOWER EXTREMITY VENOUS RT CLINICAL HISTORY: pain TECHNIQUE: Right lower extremity venous ultrasound performed using grayscale, color-flow, and spectr al Doppler analysis. COMPARISON: No exams were available for comparison FINDINGS: The right common femoral, femoral and popliteal veins demonstrate normal compressibility, augmentatio n, and color Doppler. The posterior tibial veins are patent. The saphenofemoral junction is unremark able. There is no evidence of a Saunders cyst. The soft tissues are unremarkable. IMPRESSION: 1. No evidence of a right lower extremity DVT. 2. Findings were discussed with the emergency department by the tube winder hand on 11/18/2022. DATA REPOSITORY:
--- NOTE | 2022-11-18 08:39 | ED.GENADUL_ITS ---
Discharge Plan Disposition Patient Disposition: Admit to [facility] Discharge Details Chief Complaint: RespSymp Clinical Impression: GI bleed, Pleural effusion, Hypoxia, Hypernatremia, Hypomagnesemia, Anemia, Acute exacerbation of chronic obstructive pulmonary disease Primary Care Provider: Samir Casillas ED Provider: Jameel Dillon Home Meds and New Rx's Prescriptions: No Action lisinopril-hydrochlorothiazide 20-25 mg tablet 1 tab PO DAILY Qty: 90 1RF Centrum Silver Women 8 mg iron-400 mcg-300 mcg tablet 1 tab PO DAILY ketoconazole 2 % shampoo 1 applic topical .Twice a week PRN (Reason: seborrheic derm) Qty: 120 0RF Rx Instructions: Apply to wet scalp twice a week, leave on for 3-5 minutes, then rinse well. use for 2-4 weeks Incruse Ellipta 62.5 mcg/actuation blister with device 1 inh inhalation DAILY Qty: 30 12RF rosuvastatin 40 mg tablet 40 mg PO DAILY Qty: 90 3RF prednisone 20 mg Tablet See Rx Instructions .ROUTE .COMPLEX Qty: 28 0RF Rx Instructions: Starting on 10/14; 4 tabs daily for 2 days, then 3 for 3 days, then 2 for 3 days, then 1 for 3 days, then 1/2 for 3 days. mometasone 0.1 % Cream 0 g topical BID Qty: 0 0RF budesonide-formoterol [Symbicort] 80-4.5 mcg/actuation Hfa Aerosol Inhaler 2 puff inhalation BID Qty: 0 0RF clopidogrel 75 mg Tablet 75 mg PO DAILY Qty: 0 0RF pantoprazole 40 mg Tablet,Delayed Release (Dr/Ec) 40 mg PO DAILY@0730 Qty: 0 0RF docusate sodium [Colace] 100 mg Capsule 100 mg PO TID PRN PRNQty: 0 0RF Inhaler, Assist Devices [Pocket Chamber] 1 ea miscellaneous DIRECTED Qty: 0 0RF atorvastatin 80 mg tablet 80 mg PO DAILY tizanidine 4 mg tablet 4 mg PO BID Patient Comments: TAKE ONE TABLET BY MOUTH TWICE A DAY fluticasone propionate [Flonase Allergy Relief] 50 mcg/actuation spray,suspension 1 spray intranasal DAILY Rx Instructions: administer into each nostril aspirin 81 mg tablet,delayed release (DR/EC) 81 mg PO DAILY Patient Comments: TAKE ONE TABLET BY MOUTH EVERY DAY sertraline 100 mg tablet 100 mg PO DAILY albuterol sulfate 90 mcg/actuation HFA aerosol inhaler 2 puff inhalation 6XD PRNQty: 8.5 0RF Medical Decision Making 842??82-year-old female with multiple medical problems including history of COPD, pulmonary hypertension, CVA with residual left hemiparesis, here with increasing shortness of breath over the past couple weeks, hypoxic per EMS and improved with neb treatments, still with diminished breath sounds and tachypnea on exam. Patient saturating in the upper 80s on room air. Screening EKG was reviewed and interpreted by me: Please see report, sinus rhythm 97 bpm, normal axis, no STEMI, nondiagnostic. Suspect acute COPD exacerbation. Plan to treat with Solu-Medrol 60 mg. I have consulted pulmonology who will evaluate the patient here in the emergency department. Patient does have some right calf tenderness on exam. Considered DVT. Plan to obtain ultrasound. -- Consulted on-call dtp operator, Dr. Shin, she evaluated patient in the emergency department and agrees with Solu-Medrol and admission. She did perform POCUS that reveals left pleural effusion and pulmonary vascular congestion. 1030 --ultrasound was interpreted by radiology as negative. Labs reviewed and significant decrease in hemoglobin. Hemoglobin is 6.0 today this has decreased from 11.4 approximately 2 months ago. Patient also with mild hypomagnesemia and hypernatremia. Chest x-ray reviewed and interpreted by radiology: Small left pleural effusion.? Patient now noting that she has had no blood in her bowel movements but has had dark bowel movements for at least a few days. Rectal exam was performed and no gross blood. Hemoccult positive, control passed. Plan to initiate treatment with Protonix and I will give 1 unit of PRBCs given hemoglobin. --I spoke with Dr. Lee, on-call general surgeon, discussed ED presentation and course, he will consult and plan on scoping the patient --I spoke with Dr. Vasquez, on-call hospitalist, discussed ED presentation course, he will admit the patient. 1250 --patient reassessed: Patient receiving PRBCs. She is hemodynamically stable. Lab Data Lab results reviewed: Yes I reviewed the patient's lab results. Labs: Laboratory Tests Range/Units 0511/18/22 11/18/22 08:54 08:54 08:54 WBC (4.4-10.8) 10^3/uL 9.88 RBC (3.93-5.22) 10^6/uL 2.21 L Hgb (11.2-15.7) g/dL 6.0 L* Hct (36.0-46.0) % 20.5 L* MCV (80-95) fL 93 MCH (27.0-33.0) pg 27.1 MCHC (32.0-36.0) % 29.3 L RDW (11.7-14.6) % 16.8 H Plt Count (130-400) 10^3/uL 245 MPV (8.0-11.0) fL 10.0 Immature Gran % 0.7 Neutrophils % 80.5 Lymphocytes % 10.5 Monocytes % 8.0 Eosinophils % 0.1 Basophils % 0.2 Nucleated RBC % (0.0-0.3) % 0.0 Absolute Neutrophils (1.2-6.7) 10^3/uL 7.95 H Absolute Lymphocytes (1.2-3.4) 10^3/uL 1.04 L Absolute Monocytes (0.1-0.8) 10^3/uL 0.79 Absolute Eosinophils (0.0-0.7) 10^3/uL 0.01 Absolute Basophils (0.0-0.2) 10^3/uL 0.02 VBG pH (7.31-7.41) 7.35 VBG pCO2 (41-51) mmHg 43 VBG pO2 mmHg 40 VBG HCO3 (23-28) mmol/L 24 VBG Total CO2 (24-29) mmol/L 24 VBG O2 Saturation % 70 VBG Base Excess (-2-3) mmol/L -2 Sodium (136-145) mmol/L 146 H Potassium (3.5-5.1) mmol/L 3.7 Chloride (98-107) mmol/L 110 H Carbon Dioxide (21.0-32.0) mmol/L 25.4 Anion Gap (3-11) mmol/L 10.6 BUN (7-18) mg/dL 25 H Creatinine (0.55-1.02) mg/dL 1.3 H Est GFR (CKD-EPI 2021) (mL/min/1.73m2) 41.57 Glucose (74-106) mg/dL 123 H Calcium (8.5-10.1) mg/dL 9.1 Magnesium (1.8-2.4) mg/dL 1.7 L Total Bilirubin (0.2-1.0) mg/dL 0.5 AST (15-37) U/L 32 ALT (14-59) U/L 36 Alkaline Phosphatase (46-116) U/L 100 Troponin I (<or=60) ng/L < 50 NT-Pro-B Natriuret Pep (<300) pg/mL 1271 H Total Protein (6.4-8.2) g/dL 6.4 Albumin (3.4-5.0) g/dL 3.4 Patient ABO/Rh Antibody Screen Crossmatch Range/Units 11/18/22 10:49 WBC (4.4-10.8) 10^3/uL RBC (3.93-5.22) 10^6/uL Hgb (11.2-15.7) g/dL Hct (36.0-46.0) % MCV (80-95) fL MCH (27.0-33.0) pg MCHC (32.0-36.0) % RDW (11.7-14.6) % Plt Count (130-400) 10^3/uL MPV (8.0-11.0) fL Immature Gran % Neutrophils % Lymphocytes % Monocytes % Eosinophils % Basophils % Nucleated RBC % (0.0-0.3) % Absolute Neutrophils (1.2-6.7) 10^3/uL Absolute Lymphocytes (1.2-3.4) 10^3/uL Absolute Monocytes (0.1-0.8) 10^3/uL Absolute Eosinophils (0.0-0.7) 10^3/uL Absolute Basophils (0.0-0.2) 10^3/uL VBG pH (7.31-7.41) VBG pCO2 (41-51) mmHg VBG pO2 mmHg VBG HCO3 (23-28) mmol/L VBG Total CO2 (24-29) mmol/L VBG O2 Saturation % VBG Base Excess (-2-3) mmol/L Sodium (136-145) mmol/L Potassium (3.5-5.1) mmol/L Chloride (98-107) mmol/L Carbon Dioxide (21.0-32.0) mmol/L Anion Gap (3-11) mmol/L BUN (7-18) mg/dL Creatinine (0.55-1.02) mg/dL Est GFR (CKD-EPI 2020) (mL/min/1.73m2) Glucose (74-106) mg/dL Calcium (8.5-10.1) mg/dL Magnesium (1.8-2.4) mg/dL Total Bilirubin (0.2-1.0) mg/dL AST (15-37) U/L ALT (14-59) U/L Alkaline Phosphatase (46-116) U/L Troponin I (<or=60) ng/L NT-Pro-B Natriuret Pep (<300) pg/mL Total Protein (6.4-8.2) g/dL Albumin (3.4-5.0) g/dL Patient ABO/Rh O Positive Antibody Screen NEGATIVE Crossmatch See Detail HPI General Mode of arrival: EMS . Date/Time Provider Initiated Documentation: 11/18/22 08:05 . Limitations to Documentation: no limitations . Information obtained by: patient . HPI Narrative: 82-year-old female with multiple medical problems including history of pulmonary nodules, pulmonary hypertension, COPD, CVA with residual left hemiparesis, hypertension, here with chief complaint of shortness of breath. Patient notes progressive shortness of breath over the past 2 to 3 weeks. Symptoms worse over the past couple days. Patient's son called EMS because she was wheezing significantly. EMS provided neb treatments and she notes she is breathing better. She does state that she has been taking her medications as prescribed. She is not currently on prednisone. She denies any change in cough. No fever. No chest pain. Related Data Home Medications Medication Instructions Recorded Confirmed multivit with 1 tab PO DAILY 07/18/20 10/11/22 [id number] 8 mg iron-400 mcg-300 mcg tablet (Centrum Silver Women) lisinopril 20 1 tab PO DAILY #90 tabs 05/11/22 10/11/22 mg-hydrochlorothiazide 25 mg tablet rosuvastatin 40 mg tablet 40 mg PO DAILY #90 tabs 05/24/22 10/11/22 ketoconazole 2 % shampoo 1 applic topical .Twice a week PRN 06/21/22 10/11/22 seborrheic derm #120 mL aspirin 81 mg tablet,delayed 81 mg PO DAILY 09/23/22 11/18/22 release fluticasone propionate 50 1 spray intranasal DAILY 09/23/22 11/18/22 mcg/actuation nasal spray,suspension (Flonase Allergy Relief) sertraline 100 mg tablet 100 mg PO DAILY 09/23/22 11/18/22 tizanidine 4 mg tablet 4 mg PO BID 09/23/22 10/11/22 albuterol sulfate 90 mcg/actuation 2 puff inhalation 6XD PRN #8.5 09/27/22 11/18/22 aerosol inhaler grams umeclidinium 62.5 mcg/actuation 1 inh inhalation DAILY #30 ea 10/06/22 11/18/22 blister powder for inhalation (Incruse Ellipta) Inhaler, Assist Devices [Pocket 1 ea miscellaneous DIRECTED ##0 10/13/22 Chamber] budesonide-formoterol HFA 80 2 puff inhalation BID #0 grams 10/13/22 11/18/22 mcg-4.5 mcg/actuation aerosol inhaler (Symbicort) clopidogrel 75 mg tablet 75 mg PO DAILY #0 tabs 10/13/22 11/18/22 docusate sodium 100 mg capsule 100 mg PO TID PRN PRN #0 caps 10/13/22 11/18/22 (Colace) mometasone 0.1 % topical cream 0 g topical BID #0 grams 10/13/22 pantoprazole 40 mg tablet,delayed 40 mg PO DAILY@0730 #0 tabs 10/13/22 11/18/22 release prednisone 20 mg tablet See Rx Instructions .Route 10/13/22 .COMPLEX #28 tabs atorvastatin 80 mg tablet 80 mg PO DAILY 11/18/22 11/18/22 Previous Rx's Medication Instructions Recorded lisinopril 20 1 tab PO DAILY #90 tabs 05/11/22 mg-hydrochlorothiazide 25 mg tablet rosuvastatin 40 mg tablet 40 mg PO DAILY #90 tabs 05/24/22 ketoconazole 2 % shampoo 1 applic topical .Twice a week PRN 06/21/22 seborrheic derm #120 mL albuterol sulfate 90 mcg/actuation 2 puff inhalation 6XD PRN #8.5 09/27/22 aerosol inhaler grams umeclidinium 62.5 mcg/actuation 1 inh inhalation DAILY #30 ea 10/06/22 blister powder for inhalation (Incruse Ellipta) Inhaler, Assist Devices [Pocket 1 ea miscellaneous DIRECTED ##0 10/13/22 Chamber] budesonide-formoterol HFA 80 2 puff inhalation BID #0 grams 10/13/22 mcg-4.5 mcg/actuation aerosol inhaler (Symbicort) clopidogrel 75 mg tablet 75 mg PO DAILY #0 tabs 10/13/22 docusate sodium 100 mg capsule 100 mg PO TID PRN PRN #0 caps 10/13/22 (Colace) mometasone 0.1 % topical cream 0 g topical BID #0 grams 10/13/22 pantoprazole 40 mg tablet,delayed 40 mg PO DAILY@0730 #0 tabs 10/13/22 release prednisone 20 mg tablet See Rx Instructions .Route 10/13/22 .COMPLEX #28 tabs Allergies Allergy/AdvReac Type Severity Reaction Status Date / Time baclofen AdvReac Intermediate mental Verified 10/06/22 14:13 status changes General Stated Complaint: RespSymp IFTIKHAR: 3 Review of Systems All systems reviewed & are unremarkable except as noted in HPI and below Constitutional Constitutional: Denies fever(s) Cardiovascular Cardiovascular: Reports dyspnea Respiratory Respiratory: Reports dyspnea PFSH All Active Problems GI bleed (Chronic) Pleural effusion (Acute) Hypoxia (Acute) Hypernatremia (Acute) Hypomagnesemia (Acute) Anemia (Chronic) Acute exacerbation of chronic obstructive pulmonary disease (Acute) Pulmonary edema (Acute) Pleural effusion (Acute) Anemia (Chronic) Pulmonary nodules/lesions, multiple (Acute) Pulmonary hypertension (Acute) Ischemic cerebrovascular accident (CVA) due to atherosclerosis of large extracranial artery (Acute) Left hemiparesis (Acute) 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 occlusion (Acute) Chronic obstructive lung disease (Chronic) PFT'S 2009 FEV 1.15=59% continues to smoke Constipation (Chronic 11/14/17) Essential hypertension (Chronic 03/30/13) Lumbago (Chronic 05/10/13) Peripheral vascular disease (Acute) Jul 2014 [facility] [place] aorto bifem bypass LEFT ILIAC STENT [facility] [place] 03/2010 Polyp of colon (Acute) tubular adenoma Shoulder arthralgia (Chronic) Carotid stenosis, left (Acute) 50-69% stenosis 04/2022; complete obstruction right internal carotid. Grief reaction (Chronic) Spouse 08/13/21 passed CVA (cerebral vascular accident) (Chronic) Neuro est. between 04/2020-11/2021 Counseling regarding advanced directives and goals of care (Acute) Dilated bile duct (Acute ~02/2022) s/p ERCP [facility], 10mm dilation, no masses. Due repeat MRI in 10/2022. Left rotator cuff tear arthropathy (Chronic) 40 mg Depo-Medrol injection: 04/13/2022 Nail dystrophy (Acute) Left upper quadrant abdominal pain (Acute) Seborrheic dermatitis of scalp (Acute) Productive cough (Acute) History of tobacco abuse (Acute) Medical History Anxiety about health Disorder of ear, left Diverticulitis of colon H/O SIGMOID COLECTOMY Hand pain, left Hyperlipidemia Perichondritis Seizures Smoker (10/19/16) Surgical History Extraction of cataract B/L 04/2013 Ligation of fallopian tube Rotator Cuff Repair RIGHT S/P partial colectomy Trigger Finger release WRIST/THUMB SURGERY LEFT THUMB LEFT WRIST RIGHT THUMB Family History Mother Diabetes Essential hypertension Stroke Father , 55 Heart disease Stroke Brother , 71 Complications from surgery No problems noted. Son No problems noted. Son No problems noted. Daughter No problems noted. Daughter No problems noted. Social History Smoking/Tobacco Use Status: Current every day Tobacco Type: cigarettes Smoking packs per day: 0.5 Smoking cigarettes per day: 10.0 Years smoked: 63 Smoking pack-years: 31.50 Tobacco: How many years used: 63 Quit status: considering quitting Second Hand Exposure: Yes Smoking risk assessment performed?: Yes Alcohol Intake: never Drug use: Rarely Counseling given: No Counseling provided: none Caregiver/Support person: No Household members: none Housing: house Number of Children: 4 Communication Needs: Hard of Hearing Do you need help understanding health information?: Rarely Pets and animals: Yes Pets and animals: dog(s) Sexually active: No Do you think of yourself as: straight/heterosexual Current gender identity: female What is your relationship status?: How often do you talk on the phone with friends or family?: three or more times per week Do you belong to any clubs or organized social groups?: no Panel score (0-1 are the most socially isolated patients): 1 What type of physical activity do you participate in: none Darlene/Episcopal: No preference Special darlene needs: No Seatbelt use: always Helmet use: No Drive intox or ride w/intox pickup driver: No Do you feel safe at home: Yes Do you feel safe in your relationship?: Yes Exam Const General: cooperative and no acute distress HENMT Mouth: moist mucous membranes Eyes Conjunctivae: normal conjunctivae Sclera: normal sclerae Neck Neck: trachea midline and supple Resp Effort & Inspection: not labored and tachypneic Auscultation: diminished lung sounds bilaterally, no rales, no rhonchi and wheezes expiratory wheezes (faint) Cardio Rate: regular rate and not tachycardic Rhythm: regular rhythm Heart Sounds: murmur systolic III/ GI Palpation: soft, not firm, no guarding, no masses, not rigid and nontender Skin General skin exam: no rashes or lesions noted Neuro General: patient alert, patient awake and tone normal Extrem General: calf tenderness on the right and no edema Psych Appearance: grossly normal Mental Status: mental status grossly normal Course Vital Signs Vital signs: Vital Signs Pulse 102 H 11/18/22 07:56 Respiratory Rate 24 11/18/22 07:56 Blood Pressure 135/34 L 11/18/22 07:56 Pulse Oximetry 94 11/18/22 07:56 Pulse 102 H 11/18/22 07:56 Respiratory Rate 24 11/18/22 07:56 Respiratory Effort Labored 11/18/22 08:21 Blood Pressure 135/34 L 11/18/22 07:56 Blood Pressure Position Sitting 11/18/22 07:56 Pulse Oximetry 96 11/18/22 08:02 Oxygen Delivery Method Room Air 11/18/22 08:02 Oxygen Flow Rate 0 11/18/22 08:02 Critical Care Time Critical Care Time Critical Care Time: Yes Total Critical Care Time: 85 Attestation: I spent greater than 85 minutes addressing this patient's immediate life threats. Please see MDM section of note. This time was spent engaged in work directly related to the patient's care, exclusive of separate procedures, and failure to initiate these interventions would have likely resulted in clinically significant or life threatening deterioration in the patient's condition.
--- NOTE | 2022-11-18 08:57 | PUCON_ITS ---
General Date Of Service Date of service: 11/18/22 Time of Service: 08:30 Reason for Consult: COPD Exacerbation, dyspnea, hypoxia Assessment and Plan Assessment and plan (1) Pulmonary nodules/lesions, multiple: Status: Acute (2) Pulmonary hypertension: Status: Acute (3) Chronic obstructive lung disease: Status: Chronic Qualifiers: COPD type: chronic bronchitis Chronic bronchitis type: simple Qualified Code(s): J41.0 - Simple chronic bronchitis (4) Anemia: Status: Chronic (5) Pleural effusion: Status: Acute (6) Pulmonary edema: Status: Acute Assessment and plan: This is a 82 yo with COPD, CHF, pulmonary hypertension, recent CVA who presented to the ED for dyspnea and chest tightness for the past few days. I cannot objectively saw that she is having a COPD exacerbation, but rather believe her dyspnea is a combination of acute anemia and pulmonary edema from CHF. She self endorsed wheezing and chest tightness, which again can be due to CHF. She has not had sick contacts. I do not think she needs continued steroid treatment for COPD. She should be transfused, but would recommend Lasix with this and some diuresis as well given POCUS findings. COPD - I do not think she needs any further steroids - would continue Symbicort 80 2 puff bid - continue home Incruse - Duonebs q4 prn - albuterol HFA q4 prn - I have made another outpatient appointment with me for follow up CHF - pulmonary edema and left pleural effusion on POCUS - recommend gentle diuresis Acute anemia - recommend 1 U PRBC with Hb recheck - recommend Lasix 20mg IV with transfusion Pulmonary Hypertension - group 2 and 3 - POCUS finds RV function appropriate currently Multiple pulmonary nodules - outpatient follow up History of Present Illness Narrative: This is an 82 yo with a history of CHF, COPD and CVA who presented to the ED with a few days of worsening dyspnea. I saw her as an inpatient for a COPD exacerbation in October and recommended Symbicort 80 in addition to her home Incruse. She states she does have a nebulizer, but she does not know what her d aughter did with it and so has not had access to it. She has been trying to use her albuterol inhaler, but it has been hurting her throat. She also has a history of pulmonary hypertension (likely group 2 and 3). In addition to dyspnea, she does have right calf pain and has been ordered for a DVT study. Her EKG is sinus with no concerning ST-T changes. She is requiring 1LPM currently. She tells me she has had weight loss, and on assessment of her chart, she has lost 10 lbs since September. Her labs are significant for anemia (Hb 6.0), elevated bnp. 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 (Acute) Left hemiparesis (Acute) 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 occlusion (Acute) Chronic obstructive lung disease (Chronic) PFT'S 2009 FEV 1.15=59% continues to smoke Constipation (Chronic 11/14/17) Essential hypertension (Chronic 03/30/13) Lumbago (Chronic 05/10/13) Peripheral vascular disease (Acute) Jul 2014 [facility] [place] aorto bifem bypass LEFT ILIAC STENT [facility] [place] 03/2010 Polyp of colon (Acute) tubular adenoma Shoulder arthralgia (Chronic) Carotid stenosis, left (Acute) 50-69% stenosis 04/2022; complete obstruction right internal carotid. Grief reaction (Chronic) Spouse 08/13/21 passed CVA (cerebral vascular accident) (Chronic) Neuro est. between 04/2020-11/2021 Counseling regarding advanced directives and goals of care (Acute) Dilated bile duct (Acute ~02/2022) s/p ERCP [facility], 10mm dilation, no masses. Due repeat MRI in 10/2022. Left rotator cuff tear arthropathy (Chronic) 40 mg Depo-Medrol injection: 04/13/2022 Nail dystrophy (Acute) Left upper quadrant abdominal pain (Acute) Seborrheic dermatitis of scalp (Acute) Productive cough (Acute) History of tobacco abuse (Acute) Medical History Anxiety about health Disorder of ear, left Diverticulitis of colon H/O SIGMOID COLECTOMY Hand pain, left Hyperlipidemia Perichondritis Seizures Smoker (10/19/16) Surgical History Extraction of cataract B/L 04/2013 Ligation of fallopian tube Rotator Cuff Repair RIGHT S/P partial colectomy Trigger Finger release WRIST/THUMB SURGERY LEFT THUMB LEFT WRIST RIGHT THUMB Family History Mother Diabetes Essential hypertension Stroke Father , 55 Heart disease Stroke Brother , 71 Complications from surgery No problems noted. Son No problems noted. Son No problems noted. Daughter No problems noted. Daughter No problems noted. Social History Smoking/Tobacco Use Status: Current every day Tobacco Type: cigarettes Smoking packs per day: 0.5 Smoking cigarettes per day: 10.0 Years smoked: 63 Smoking pack-years: 31.50 Tobacco: How many years used: 63 Quit status: considering quitting Second Hand Exposure: Yes Smoking risk assessment performed?: Yes Alcohol Intake: never Drug use: Rarely Counseling given: No Counseling provided: none Caregiver/Support person: No Household members: none Housing: house Number of Children: 4 Communication Needs: Hard of Hearing Do you need help understanding health information?: Rarely Pets and animals: Yes Pets and animals: dog(s) Sexually active: No Do you think of yourself as: straight/heterosexual Current gender identity: female What is your relationship status?: How often do you talk on the phone with friends or family?: three or more times per week Do you belong to any clubs or organized social groups?: no Panel score (0-1 are the most socially isolated patients): 1 What type of physical activity do you participate in: none Darlene/Mu-Ism: No preference Special darlene needs: No Seatbelt use: always Helmet use: No Drive intox or ride w/intox pack train driver: No Do you feel safe at home: Yes Do you feel safe in your relationship?: Yes Visit Medication and Allergies Active Medications Generic Name Dose Route Start Last Admin Trade Name Freq PRN Reason Stop Dose Admin IV Miscellaneous Supplies 1 each 11/18/22 08:15 Iv [facility]-Emergency Dept IV DIRECTED CAR Sodium Chloride 0 ml 11/18/22 08:07 Normal Saline Flush 10 Ml Syr IVP PRN PRN Allergies baclofen Adverse Reaction (Intermediate, Verified 10/06/22 14:13) mental status changes Exam Narrative Exam Narrative: Gen: NAD, normal respiratory effort, well-nourished HENT: PERRL, nasal turbinates normal without erythema or inflammation, moist oral mucosa, Mallampati 4, No LAD or JVD, no thrush Chest: No respiratory distress, normal appearance of chest, clear to auscultation bilaterally, no crackles or wheezes, normal inspiratory effort Heart: regular rate and rhythym, no murmurs, rubs or gallops Abdomen: Non-distended, soft, non tender Extremities: No clubbing, edema, cyanosis, rashes Neuro: AAOx3 , non focal Psych: cooperative, appropriate mental affect Results Last Vital Signs Pulse 102 H 11/18/22 07:56 Resp 24 11/18/22 07:56 BP 135/34 L 11/18/22 07:56 Pulse Ox 96 11/18/22 08:02 Labs 11/18/22 08:54 11/18/22 08:54 Pocus Exam Limited Cardiac Exam DATE OF EXAM: 11/18/22 TIME OF EXAM: 08:45 PROVIDER THAT PERFORMED THE STUDY: Lisa Mixon IS THIS A REPEAT EXAM DURING THIS ENCOUNTER: no REASON FOR EXAM: Chest pain, Congestive heart failure, Dyspnea, Evaluation of LV function, Hypoxia and Right heart strain/PE VISUALIZED STRUCTURES: four chambers, left atrium, left ventricle, LVOT, right atrium, right ventricle, aortic valve, mitral valve, Interventricular septum and IVC VIEW OBTAINED: Apical 4-Chamber, Parasternal long-axis, Parasternal short-axis and Subxiphoid PERTINENT FINDINGS/IMPRESSION: Pericardial effusion (small, non circumferential, anterior), Plethoric IVC and Other LVH - possible LA with LVOT obstruction, calcified aortic valve and mitral valve ; No LV dysfunction, No RV dilation and No RV dysfunction Exam complete Limited Thoracic Lung Exam DATE OF EXAM: 11/18/22 TIME OF EXAM: 08:45 PROVIDER THAT PERFORMED THE STUDY: Lisa Mixon IS THIS A REPEAT EXAM DURING THIS ENCOUNTER: No REASON FOR EXAM: Chest pain, COPD, Hypoxia and Shortness ofBreath VISUALIZED STRUCTURES: right anterior, left anterior, right posterior and left posterior PERTINENT FINDINGS/IMPRESSION: B-lines/left side, B-lines/right side and Left pleural effusion; no pleural effusion on the right DIFFERENTIAL DIAGNOSES: Pleural effusion of left, bilateral pulmonary edema Exam complete
[2022-11-18 09:00] LABS: BE (Venous) -2 mmol/L (-2-3); HCO3 (Venous) 24 mmol/L (23-28); O2 Sat (Venous) 70 %; TCO2 (Venous) 24 mmol/L (24-29); pCO2 (Venous) 43 mmHg (41-51); pH (Venous) 7.35 (7.31-7.41); pO2 (Venous) 40 mmHg
--- NOTE | 2022-11-18 09:00 | DI.RAD_ITS ---
Exam(s) XR CHEST 2V PA LATERAL EXAM: XR CHEST 2V PA LATERAL CLINICAL HISTORY: sob TECHNIQUE: 2D digital imaging was performed of the chest. Two images were obtained. PA and lateral views were obtained. COMPARISON: CR,XR XR CHEST 2V PA LATERAL from 10/06/2022 CR XR PORTABLE CHEST AP from 10/08/2022 FINDINGS: MEDIASTINUM: Normal. HEART: Normal. PULMONARY VASCULATURE: Normal. LUNGS: No focal consolidating infiltrates are present. PLEURAL SPACE: There is a small left pleural effusion. BONE:Within normal limits for the patient's age. OTHER FINDINGS:Normal. IMPRESSION: Small left pleural effusion. DATA REPOSITORY: RADIATION DOSE DELIVERED:
[2022-11-18 09:09] LABS: Abs Immature Grans 0.07 10^3/uL (0.0-0.06); Absolute Basophil Count 0.02 10^3/uL (0.0-0.2); Absolute Eosinophil Count 0.01 10^3/uL (0.0-0.7); Absolute Lymphocyte Count 1.04 10^3/uL (1.2-3.4); Absolute Monocyte Count 0.79 10^3/uL (0.1-0.8); Absolute Neutrophil Count 7.95 10^3/uL (1.2-6.7); Basophils % 0.2; Eosinophils % 0.1; Immature Grans % 0.7; Lymphocytes % 10.5; MCH 27.1 pg (27.0-33.0); MCHC 29.3 % (32.0-36.0); MCV 93 fL (80-95); Neutrophils % 80.5; Platelet Count 245 10^3/uL (130-400); RBC 2.21 10^6/uL (3.93-5.22); RDW 16.8 % (11.7-14.6); RDW-SD 57.2 fL; WBC 9.88 10^3/uL (4.4-10.8)
[2022-11-18 09:19] LABS: HCT 20.5 % (36.0-46.0)
[2022-11-18 09:32] LABS: ALT 36 U/L (14-59); AST 32 U/L (15-37); Albumin 3.4 g/dL (3.4-5.0); Alkaline Phosphatase 100 U/L (46-116); Anion Gap 10.6 mmol/L (3-11); BUN 25 mg/dL (7-18); Bilirubin, Total 0.5 mg/dL (0.2-1.0); CO2 25.4 mmol/L (21.0-32.0); CREATININE 1.3 mg/dL (0.55-1.02); Calcium 9.1 mg/dL (8.5-10.1); Chloride 110 mmol/L (98-107); Estimated GFR 41.57 (mL/min/1.73m2); Glucose 123 mg/dL (74-106); Magnesium 1.7 mg/dL (1.8-2.4); NT-proBNP 1271 pg/mL (<300); Potassium 3.7 mmol/L (3.5-5.1); Sodium 146 mmol/L (136-145); Total Protein 6.4 g/dL (6.4-8.2); Troponin I < 50 ng/L (<or=60)
[2022-11-18] MEDS: methylPREDNISolone SUCC 125 MG VIAL 60 MG IVP (09:44)
[2022-11-18] MEDS: Pantoprazole 40 MG VIAL IVP (11:02)
[2022-11-18] MEDS: PANTOPRAZOLE 80 MG in Normal Saline 100 ML 10 MG IV (11:03)
--- NOTE | 2022-11-18 11:58 | SCONE_ITS ---
Date of service: 11/18/22 Time of Service: 11:58 Assessment and Plan Assessment and plan (1) Anemia: Status: Chronic Assessment and plan: The dual antiplatelet therapy and new onset anemia are suggestive of gastritis, and/or peptic ulcer disease. I think the most important thing at this point is to transfuse packed red blood cells and help improve her symptoms. We can certainly make arrangements to proceed with upper endoscopy in the next day or so assuming she remains hemodynamically stable. History of Present Illness History of Present Illness Chief Complaint: Shortness of breath Narrative: Kathleen is 82 years old. She comes to the emergency department complaining of shortness of breath. She says she first noticed it when she was up and moving about. It started about 2 to 3 weeks ago, and has been slowly progressing. Is been noticeably worse over the past 2 to 3 days, where nearly all of her physical activity is limited by wheezing and difficulty breathing. She feels like she just cannot catch her breath. She also reports feeling a little bit tired. While in the emergency department, she underwent respiratory treatments. She had a work-up for a DVT which was negative. Hemoglobin was measured at 6.0 which was down from 11.4 during her last hospital encounter. Her stool was tested and found to be guaiac positive. Other past medical history is significant for pulmonary hypertension and COPD, with a stroke in early October resulting in some left-sided hemiparesis. She is treated with aspirin and Plavix. I am consulted for assistance of gastrointestinal bleeding. Review of Systems Constitutional Constitutional: Denies difficulty sleeping, Denies fatigue, Reports lethargy, Reports poor appetite, Reports weakness and Denies weight loss Eyes Eyes: Reports system reviewed and no additional complaints, except as documented ENT Ears, Nose, Mouth, and Throat: Reports odynophagia Cardiovascular Cardiovascular: Denies chest pain Respiratory Respiratory: Denies chest congestion and Denies cough Gastrointestinal Gastrointestinal: Reports bloating and Reports odynophagia Comments: Breads give her the sensation of food getting stuck in the lower part of her esophagus Musculoskeletal Musculoskeletal: Reports as per HPI Neurologic Neurologic: Reports weakness Endocrine Endocrine: Denies fatigue Hematologic/Lymphatic Hematologic/Lymphatic: Denies easy bleeding and Denies easy bruising PFSH All Active Problems Congestive heart failure (Chronic) GI bleed (Acute) Pleural effusion (Acute) Hypoxia (Acute) Hypernatremia (Acute) Hypomagnesemia (Acute) Anemia (Chronic) Acute exacerbation of chronic obstructive pulmonary disease (Acute) Pulmonary edema (Acute) Pleural effusion (Acute) Anemia (Chronic) Pulmonary nodules/lesions, multiple (Acute) Pulmonary hypertension (Acute) Ischemic cerebrovascular accident (CVA) due to atherosclerosis of large extracranial artery (Chronic) Left hemiparesis (Acute) 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 occlusion (Acute) Chronic obstructive lung disease (Chronic) PFT'S 2009 FEV 1.15=59% continues to smoke Constipation (Chronic 11/14/17) Essential hypertension (Chronic 03/30/13) Lumbago (Chronic 05/10/13) Peripheral vascular disease (Acute) Jul 2014 [facility] [place] aorto bifem bypass LEFT ILIAC STENT [facility] [place] 03/2010 Polyp of colon (Acute) tubular adenoma Shoulder arthralgia (Chronic) Carotid stenosis, left (Acute) 50-69% stenosis 04/2022; complete obstruction right internal carotid. Grief reaction (Chronic) Spouse 08/13/21 passed CVA (cerebral vascular accident) (Chronic) Neuro est. between 04/2020-11/2021 Counseling regarding advanced directives and goals of care (Acute) Dilated bile duct (Acute ~02/2022) s/p ERCP [facility], 10mm dilation, no masses. Due repeat MRI in 10/2022. Left rotator cuff tear arthropathy (Chronic) 40 mg Depo-Medrol injection: 04/13/2022 Nail dystrophy (Acute) Left upper quadrant abdominal pain (Acute) Seborrheic dermatitis of scalp (Acute) Productive cough (Acute) History of tobacco abuse (Acute) Medical History Anxiety about health Disorder of ear, left Diverticulitis of colon H/O SIGMOID COLECTOMY Hand pain, left Hyperlipidemia Perichondritis Seizures Smoker (10/19/16) Surgical History Extraction of cataract B/L 04/2013 Ligation of fallopian tube Rotator Cuff Repair RIGHT S/P partial colectomy Trigger Finger release WRIST/THUMB SURGERY LEFT THUMB LEFT WRIST RIGHT THUMB Family History Mother Diabetes Essential hypertension Stroke Father , 55 Heart disease Stroke Brother , 71 Complications from surgery No problems noted. Son No problems noted. Son No problems noted. Daughter No problems noted. Daughter No problems noted. Social History Smoking/Tobacco Use Status: Current every day Tobacco Type: cigarettes Smoking packs per day: 0.5 Smoking cigarettes per day: 10.0 Years smoked: 63 Smoking pack-years: 31.50 Tobacco: How many years used: 63 Quit status: considering quitting Second Hand Exposure: Yes Smoking risk assessment performed?: Yes Alcohol Intake: never Drug use: Rarely Counseling given: No Counseling provided: none Caregiver/Support person: No Household members: none Housing: house Number of Children: 4 Communication Needs: Hard of Hearing Do you need help understanding health information?: Rarely Pets and animals: Yes Pets and animals: dog(s) Sexually active: No Do you think of yourself as: straight/heterosexual Current gender identity: female What is your relationship status?: How often do you talk on the phone with friends or family?: three or more times per week Do you belong to any clubs or organized social groups?: no Panel score (0-1 are the most socially isolated patients): 1 What type of physical activity do you participate in: none Darlene/Temple: No preference Special darlene needs: No Seatbelt use: always Helmet use: No Drive intox or ride w/intox local owner operator truck driver: No Do you feel safe at home: Yes Do you feel safe in your relationship?: Yes Exam Const General: cooperative, healthy appearing and comfortable HENWV Head: normal to inspection Neck Neck: normal visual inspection, full ROM and no lymphadenopathy Resp Effort & Inspection: normal respiratory effort Auscultation: clear to auscultation bilaterally Cardio Jugular venous pressure: no JVD Rate: regular rate Rhythm: regular rhythm GI Palpation: soft, no hernias and nontender Percussion: normal to percussion Auscultation: normal bowel sounds Results Last Vital Signs Pulse 90 11/18/22 11:00 Resp 22 11/18/22 11:10 BP 129/44 L 11/18/22 11:00 Pulse Ox 94 11/18/22 11:10 Labs 11/18/22 17:48 11/18/22 08:54 Labs: Laboratory Results - last 24 hr 11/18/22 11/18/22 11/18/22 08:54 08:54 08:54 WBC 9.88 RBC 2.21 L Hgb 6.0 L* Hct 20.5 L* MCV 93 MCH 27.1 MCHC 29.3 L RDW 16.8 H Plt Count 245 MPV 10.0 Immature Gran % 0.7 Neutrophils % 80.5 Lymphocytes % 10.5 Monocytes % 8.0 Eosinophils % 0.1 Basophils % 0.2 Nucleated RBC % 0.0 Absolute Neutrophils 7.95 H Absolute Lymphocytes 1.04 L Absolute Monocytes 0.79 Absolute Eosinophils 0.01 Absolute Basophils 0.02 VBG pH 7.35 VBG pCO2 43 VBG pO2 40 VBG HCO3 24 VBG Total CO2 24 VBG O2 Saturation 70 VBG Base Excess -2 Sodium 146 H Potassium 3.7 Chloride 110 H Carbon Dioxide 25.4 Anion Gap 10.6 BUN 25 H Creatinine 1.3 H Est GFR (CKD-EPI 2020) 41.57 Glucose 123 H Calcium 9.1 Magnesium 1.7 L Total Bilirubin 0.5 AST 32 ALT 36 Alkaline Phosphatase 100 Troponin I < 50 NT-Pro-B Natriuret Pep 1271 H Total Protein 6.4 Albumin 3.4 Crossmatch 11/18/22 10:49 WBC RBC Hgb Hct MCV MCH MCHC RDW Plt Count MPV Immature Gran % Neutrophils % Lymphocytes % Monocytes % Eosinophils % Basophils % Nucleated RBC % Absolute Neutrophils Absolute Lymphocytes Absolute Monocytes Absolute Eosinophils Absolute Basophils VBG pH VBG pCO2 VBG pO2 VBG HCO3 VBG Total CO2 VBG O2 Saturation VBG Base Excess Sodium Potassium Chloride Carbon Dioxide Anion Gap BUN Creatinine Est GFR (CKD-EPI 2020) Glucose Calcium Magnesium Total Bilirubin AST ALT Alkaline Phosphatase Troponin I NT-Pro-B Natriuret Pep Total Protein Albumin Crossmatch See Detail
--- NOTE | 2022-11-18 13:17 | NUR.NOTE ---
Nursing Note: RN started blood in appropriate amount of time but got to the documentation portion a few min after the 20 min issue start time. Pt blood hanging and going. Doing vitals at the appropriate durations and cont to watch for adverse reactions
--- NOTE | 2022-11-18 14:28 | HPE_ITS ---
Date of service: 11/18/22 Time of Service: 14:37 Assessment and Plan Assessment and plan (1) GI bleed: Status: Acute Assessment and plan: hemoglobin 6.0 with positive stool for occult blood. vitals are stable. she was given protonix 80 mg IVP and will continue on 40 mg IV BID asa and plavix will be placed on hold. received one unit of PRBC in ED, will follow serial H&H and transfuse if below 7 and or unstable. surgery consulted. will keep NPO pending surgical recommendations. if stable and no planned OR, consider clears as appropriate (2) Congestive heart failure: Status: Chronic Assessment and plan: with history of pulmonary hypertension, seen by pulmonary in the ED with POCUS performed consistent with CHF. will be given IV lasix. monitor I&O closely, daily weights (3) Chronic obstructive lung disease: Status: Chronic Assessment and plan: no acute exacerbation. no acute treatment needed. 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 will need to hold asa and plavix in setting of gi bleed with hemoglobin 6. Discussed with DR Vasquez History of Present Illness History of Present Illness Chief Complaint: shortness of breath Narrative: This is a 82 yo with COPD, CHF, pulmonary hypertension, recent CVA who presented to the ED for dyspnea and chest tightness for the past few days. She was seen by pulmonary who feels her symptoms are more a combination of acute anemia and pulmonary edema from CHF. She received 1 unit of PRBC Review of Systems All systems reviewed & are unremarkable except as noted in HPI and below Constitutional Constitutional: Reports system reviewed and no additional complaints, except as documented PFSH All Active Problems Congestive heart failure (Chronic) GI bleed (Acute) Pleural effusion (Acute) Hypoxia (Acute) Hypernatremia (Acute) Hypomagnesemia (Acute) Anemia (Chronic) Acute exacerbation of chronic obstructive pulmonary disease (Acute) Pulmonary edema (Acute) Pleural effusion (Acute) Anemia (Chronic) Pulmonary nodules/lesions, multiple (Acute) Pulmonary hypertension (Acute) Ischemic cerebrovascular accident (CVA) due to atherosclerosis of large extracranial artery (Chronic) Left hemiparesis (Acute) 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 Grief reaction (Chronic) Spouse 08/13/21 passed CVA (cerebral vascular accident) (Chronic) Neuro est. between 04/2020-11/2021 Counseling regarding advanced directives and goals of care (Acute) Dilated bile duct (Acute ~02/2022) s/p ERCP [facility], 10mm dilation, no masses. Due repeat MRI in 10/2022. Left rotator cuff tear arthropathy (Chronic) 40 mg Depo-Medrol injection: 04/13/2022 Nail dystrophy (Acute) Left upper quadrant abdominal pain (Acute) Seborrheic dermatitis of scalp (Acute) Productive cough (Acute) History of tobacco abuse (Acute) Medical History Anxiety about health Disorder of ear, left Diverticulitis of colon H/O SIGMOID COLECTOMY Hand pain, left Hyperlipidemia Perichondritis Seizures Smoker (10/19/16) Surgical History Extraction of cataract B/L 04/2013 Ligation of fallopian tube Rotator Cuff Repair RIGHT S/P partial colectomy Trigger Finger release WRIST/THUMB SURGERY LEFT THUMB LEFT WRIST RIGHT THUMB Family History Mother Diabetes Essential hypertension Stroke Father , 55 Heart disease Stroke Brother , 71 Complications from surgery No problems noted. Son No problems noted. Son No problems noted. Daughter No problems noted. Daughter No problems noted. Social History Smoking/Tobacco Use Status: Current every day Tobacco Type: cigarettes Smoking packs per day: 0.5 Smoking cigarettes per day: 10.0 Years smoked: 63 Smoking pack-years: 31.50 Tobacco: How many years used: 63 Quit status: considering quitting Second Hand Exposure: Yes Smoking risk assessment performed?: Yes Alcohol Intake: never Drug use: Rarely Counseling given: No Counseling provided: none Caregiver/Support person: No Household members: none Housing: house Number of Children: 4 Communication Needs: Hard of Hearing Do you need help understanding health information?: Rarely Pets and animals: Yes Pets and animals: dog(s) Sexually active: No Do you think of yourself as: straight/heterosexual Current gender identity: female What is your relationship status?: How often do you talk on the phone with friends or family?: three or more times per week Do you belong to any clubs or organized social groups?: no Panel score (0-1 are the most socially isolated patients): 1 What type of physical activity do you participate in: none Darlene/Spiritism: No preference Special darlene needs: No Seatbelt use: always Helmet use: No Drive intox or ride w/intox recycling collections driver: No Do you feel safe at home: Yes Do you feel safe in your relationship?: Yes Meds Allergies and Home Medications Allergies Allergy/AdvReac Type Severity Reaction Status Date / Time baclofen AdvReac Intermediate mental Verified 10/06/22 14:13 status changes Home Medications Medication Instructions Recorded Confirmed Type multivit with 1 tab PO DAILY 07/18/20 10/11/22 History emangybm-hrnx-SI-lutein 8 mg iron-400 mcg-300 mcg tablet (Centrum Silver Women) lisinopril 20 1 tab PO DAILY #90 tabs 05/11/22 10/11/22 Rx mg-hydrochlorothiazide 25 mg tablet rosuvastatin 40 mg tablet 40 mg PO DAILY #90 tabs 05/24/22 10/11/22 Rx ketoconazole 2 % shampoo 1 applic topical .Twice a week PRN 06/21/22 10/11/22 Rx seborrheic derm #120 mL aspirin 81 mg tablet,delayed 81 mg PO DAILY 09/23/22 11/18/22 History release fluticasone propionate 50 1 spray intranasal DAILY 09/23/22 11/18/22 History mcg/actuation nasal spray,suspension (Flonase Allergy Relief) sertraline 100 mg tablet 100 mg PO DAILY 09/23/22 11/18/22 History tizanidine 4 mg tablet 4 mg PO BID 09/23/22 10/11/22 History albuterol sulfate 90 mcg/actuation 2 puff inhalation 6XD PRN #8.5 09/27/22 11/18/22 Rx aerosol inhaler grams umeclidinium 62.5 mcg/actuation 1 inh inhalation DAILY #30 ea 10/06/22 11/18/22 Rx blister powder for inhalation (Incruse Ellipta) Inhaler, Assist Devices [Pocket 1 ea miscellaneous DIRECTED ##0 10/13/22 Rx Chamber] budesonide-formoterol HFA 80 2 puff inhalation BID #0 grams 10/13/22 11/18/22 Rx mcg-4.5 mcg/actuation aerosol inhaler (Symbicort) clopidogrel 75 mg tablet 75 mg PO DAILY #0 tabs 10/13/22 11/18/22 Rx docusate sodium 100 mg capsule 100 mg PO TID PRN PRN #0 caps 10/13/22 11/18/22 Rx (Colace) mometasone 0.1 % topical cream 0 g topical BID #0 grams 10/13/22 Rx pantoprazole 40 mg tablet,delayed 40 mg PO DAILY@0730 #0 tabs 10/13/22 11/18/22 Rx release prednisone 20 mg tablet See Rx Instructions .Route 10/13/22 Rx .COMPLEX #28 tabs atorvastatin 80 mg tablet 80 mg PO DAILY 11/18/22 11/18/22 History Exam Const General: cooperative, comfortable and no acute distress Nutritional Appearance: average body habitus Orientation: alert, awake and oriented x3 HENMT Head: normal to inspection, normocephalic and atraumatic Mouth: moist mucous membranes abnormal (slightly dry) Neck Neck: normal visual inspection, full ROM and no JVD Chest Chest: normal inspection of the chest Resp Effort & Inspection: normal respiratory effort Auscultation: clear to auscultation bilaterally and diminished lung sounds (bases bilaterally) Cardio Rate: regular rate Rhythm: regular rhythm GI Inspection: normal to inspection Palpation: soft, no masses and nontender Skin General skin exam: no rashes or lesions noted Neuro General: patient alert, patient awake and patient oriented x3 Cognition: normal cognition Speech: speech normal Motor: movement abnormality noted (left sided weakness residual from previous CVA, at baseline) Results Labs 11/18/22 08:54 11/18/22 08:54 Labs: Laboratory Results - last 24 hr 11/18/22 11/18/22 11/18/22 08:54 08:54 08:54 WBC 9.88 RBC 2.21 L Hgb 6.0 L* Hct 20.5 L* MCV 93 MCH 27.1 MCHC 29.3 L RDW 16.8 H Plt Count 245 MPV 10.0 Immature Gran % 0.7 Neutrophils % 80.5 Lymphocytes % 10.5 Monocytes % 8.0 Eosinophils % 0.1 Basophils % 0.2 Nucleated RBC % 0.0 Absolute Neutrophils 7.95 H Absolute Lymphocytes 1.04 L Absolute Monocytes 0.79 Absolute Eosinophils 0.01 Absolute Basophils 0.02 VBG pH 7.35 VBG pCO2 43 VBG pO2 40 VBG HCO3 24 VBG Total CO2 24 VBG O2 Saturation 70 VBG Base Excess -2 Sodium 146 H Potassium 3.7 Chloride 110 H Carbon Dioxide 25.4 Anion Gap 10.6 BUN 25 H Creatinine 1.3 H Est GFR (CKD-EPI 2020) 41.57 Glucose 123 H Calcium 9.1 Magnesium 1.7 L Total Bilirubin 0.5 AST 32 ALT 36 Alkaline Phosphatase 100 Troponin I < 50 NT-Pro-B Natriuret Pep 1271 H Total Protein 6.4 Albumin 3.4 Patient ABO/Rh Antibody Screen Crossmatch 11/18/22 10:49 WBC RBC Hgb Hct MCV MCH MCHC RDW Plt Count MPV Immature Gran % Neutrophils % Lymphocytes % Monocytes % Eosinophils % Basophils % Nucleated RBC % Absolute Neutrophils Absolute Lymphocytes Absolute Monocytes Absolute Eosinophils Absolute Basophils VBG pH VBG pCO2 VBG pO2 VBG HCO3 VBG Total CO2 VBG O2 Saturation VBG Base Excess Sodium Potassium Chloride Carbon Dioxide Anion Gap BUN Creatinine Est GFR (CKD-EPI 2020) Glucose Calcium Magnesium Total Bilirubin AST ALT Alkaline Phosphatase Troponin I NT-Pro-B Natriuret Pep Total Protein Albumin Patient ABO/Rh O Positive Antibody Screen NEGATIVE Crossmatch See Detail Last Vital Signs Temp 37.4 C 11/18/22 13:44 Pulse 90 11/18/22 13:44 Resp 18 11/18/22 13:44 BP 143/56 H 11/18/22 13:44 Pulse Ox 94 11/18/22 13:44 Time Spent Time spent with Patient: 40-54 minutes Time was spent: preparing to see the patient(eg.review tests), obtaining and/or reviewing separately otained hiistory, ordering medications,tests, procedures, referring, communicating with other health memory care program director, indepentently interpreting results and counseling the patient
[2022-11-18] MEDS: Furosemide 20 MG/2 ML VIAL IVP (15:52)
[2022-11-18] MEDS: Normal Saline Flush 10 ML SYR IVP (15:54)
[2022-11-18 17:24] LABS: Bilirubin Negative (Negative); Blood Negative (Negative); Clarity Clear (Clear); Glucose Negative (Negative); Ketones Negative (Negative); Leukocyte Esterase Negative (Negative); Nitrite Negative (Negative); Specific Gravity 1.015 (1.005-1.025); Urobilinogen 0.2 mg/dL (Up to 0.2)
[2022-11-18] MEDS: MAGNESIUM SULFATE 1 GM/100 ML BAG IVPB (18:08)
[2022-11-18 18:13] LABS: HGB 7.6 g/dL (11.2-15.7)
[2022-11-18] MEDS: Atorvastatin 40 MG TAB 80 MG PO (19:58)
[2022-11-18] MEDS: tiZANidine 4 MG TABLET PO (19:58)
[2022-11-19] VITALS (13 sets, daily range): BP systolic 94–162; BP diastolic 45–70; PULSE 59–74; RESP 16–22; TEMP 36.4–37.1; O2SAT 91–100; BMI 23.6
[2022-11-19] MEDS: PANTOPRAZOLE 80 MG in Normal Saline 100 ML 10 MG IV ×2 (00:14→22:45)
[2022-11-19 06:45] LABS: Abs Immature Grans 0.03 10^3/uL (0.0-0.06); Absolute Basophil Count 0.01 10^3/uL (0.0-0.2); Absolute Lymphocyte Count 1.63 10^3/uL (1.2-3.4); Absolute Monocyte Count 1.24 10^3/uL (0.1-0.8); Absolute Neutrophil Count 4.59 10^3/uL (1.2-6.7); Basophils % 0.1; HCT 22.9 % (36.0-46.0); HGB 7.1 g/dL (11.2-15.7); Immature Grans % 0.4; Lymphocytes % 21.7; MCH 28.2 pg (27.0-33.0); MCV 91 fL (80-95); MPV 10.5 fL (8.0-11.0); Monocytes % 16.5; Neutrophils % 61.3; Platelet Count 223 10^3/uL (130-400); RBC 2.52 10^6/uL (3.93-5.22); RDW 15.8 % (11.7-14.6); RDW-SD 52.7 fL
[2022-11-19 07:00] LABS: BUN 28 mg/dL (7-18); CREATININE 1.2 mg/dL (0.55-1.02); Calcium 9.3 mg/dL (8.5-10.1); Chloride 110 mmol/L (98-107); Estimated GFR 45.76 (mL/min/1.73m2); Glucose 117 mg/dL (74-106); Potassium 3.5 mmol/L (3.5-5.1); Sodium 145 mmol/L (136-145)
[2022-11-19] MEDS: Umeclidinium 7 CAP INHALER 1 CAP IH (08:35)
[2022-11-19] MEDS: Budesonide/Formoterol 80/4.5 6.9 GM 60 PUFF INH IH ×2 (08:35→19:20)
--- NOTE | 2022-11-19 09:08 | W.ANESPRE ---
General Info Date of Service Date Performed: 11/19/22 Height: 4 ft 10 in Weight: 51.4 kg Body Mass Index (BMI): 23.6 Surgical Procedure: Operation Date: 11/19/22 09:50 Proposed Procedure Side Surgeon p Gastroscopy Konstantin Lee MD Meds Allergies and Home Medications Allergies Allergy/AdvReac Type Severity Reaction Status Date / Time baclofen AdvReac Intermediate mental Verified 10/06/22 14:13 status changes Home Medication Medication Instructions Recorded multivit with 1 tab PO DAILY 07/18/20 pfqzuqdx-hern-KJ-lutein 8 mg iron-400 mcg-300 mcg tablet (Centrum Silver Women) lisinopril 20 1 tab PO DAILY #90 tabs 05/11/22 mg-hydrochlorothiazide 25 mg tablet rosuvastatin 40 mg tablet 40 mg PO DAILY #90 tabs 05/24/22 ketoconazole 2 % shampoo 1 applic topical .Twice a week PRN 06/21/22 seborrheic derm #120 mL aspirin 81 mg tablet,delayed 81 mg PO DAILY 09/23/22 release fluticasone propionate 50 1 spray intranasal DAILY 09/23/22 mcg/actuation nasal spray,suspension (Flonase Allergy Relief) sertraline 100 mg tablet 100 mg PO DAILY 09/23/22 tizanidine 4 mg tablet 4 mg PO BID 09/23/22 albuterol sulfate 90 mcg/actuation 2 puff inhalation 6XD PRN #8.5 09/27/22 aerosol inhaler grams umeclidinium 62.5 mcg/actuation 1 inh inhalation DAILY #30 ea 10/06/22 blister powder for inhalation (Incruse Ellipta) Inhaler, Assist Devices [Pocket 1 ea miscellaneous DIRECTED ##0 10/13/22 Chamber] budesonide-formoterol HFA 80 2 puff inhalation BID #0 grams 10/13/22 mcg-4.5 mcg/actuation aerosol inhaler (Symbicort) clopidogrel 75 mg tablet 75 mg PO DAILY #0 tabs 10/13/22 docusate sodium 100 mg capsule 100 mg PO TID PRN PRN #0 caps 10/13/22 (Colace) mometasone 0.1 % topical cream 0 g topical BID #0 grams 10/13/22 pantoprazole 40 mg tablet,delayed 40 mg PO DAILY@0730 #0 tabs 10/13/22 release prednisone 20 mg tablet See Rx Instructions .Route 10/13/22 .COMPLEX #28 tabs atorvastatin 80 mg tablet 80 mg PO DAILY 11/18/22 Current Visit Medications: Current Medications Generic Name Dose Route Start Last Admin Trade Name Freq PRN Reason Stop Dose Admin Albuterol Sulfate 2 puff 11/18/22 15:06 Albuterol Hfa 8 Gm 60 Puff Inh IH Q4H PRN PRN Atorvastatin Calcium 80 mg 11/18/22 20:00 11/18/22 19:58 Atorvastatin 40 Mg Tab PO 80 mg QPM CAR Administration Budesonide/Formoterol Fumarate 2 puff 11/18/22 20:00 11/19/22 08:35 Budesonide/Formoterol 80/4.5 6.9 Gm 60 Puff Inh IH 2 puffs BID CAR Administration Device 1 each 11/18/22 16:00 Inhaler, Assist Device DIRECTED CAR Dimethicone/Zinc Oxide 0 gm 11/18/22 14:26 Sophie Protect Cream 142 Gm Tube TP PRN PRN Fluticasone Propionate 0 gm 11/19/22 08:30 Fluticasone Nasal [place] 16 Gm Btl NS DAILY CAR Pantoprazole Sodium 80 mg/ 100 mls @ 10 mls/hr 11/18/22 10:30 11/19/22 00:14 Sodium Chloride IV 10 mls/hr INFUSION CAR Administration IV Miscellaneous Supplies 1 each 11/18/22 08:15 Iv Access-Emergency Dept IV DIRECTED [facility] Sertraline HCl 100 mg 11/19/22 08:30 Sertraline 100 Mg Tab PO DAILY CAR Sodium Chloride 0 ml 11/18/22 08:07 11/18/22 15:54 Normal Saline Flush 10 Ml Syr IVP 10 ml PRN PRN Administration Tizanidine HCl 4 mg 11/18/22 20:00 11/18/22 19:58 Tizanidine 4 Mg Tablet PO 4 mg BID CAR Administration Umeclidinium [place] 1 cap 11/19/22 08:30 11/19/22 08:35 Umeclidinium 7 Cap Inhaler IH 1 inh DAILY CAR Administration PFSH Active Problems Active Problems: Problem Status Onset Code Congestive heart failure I50.9 GI bleed K92.2 Pleural effusion J90 Hypoxia R09.02 Hypernatremia E87.0 Hypomagnesemia E83.42 Anemia D64.9 Acute exacerbation of chronic obstructive pulmonary disease J44.1 Pulmonary edema J81.1 Pleural effusion J90 Anemia D64.9 Pulmonary nodules/lesions, multiple R91.8 Pulmonary hypertension I27.20 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 Left hemiparesis G81.94 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 Right carotid artery occlusion I65.21 Chronic obstructive lung disease J44.9 Constipation 11/14/17 K59.00 Essential hypertension 03/30/13 I10 Lumbago 05/10/13 M54.5 Peripheral vascular disease I73.9 Polyp of colon K63.5 Shoulder arthralgia M25.519 Carotid stenosis, left I65.22 Grief reaction F43.21 CVA (cerebral vascular accident) I63.9 Counseling regarding advanced directives and goals of care Z71.89 Dilated bile duct ~02/2022 K83.8 Left rotator cuff tear arthropathy M75.102, M12.812 Nail dystrophy L60.3 Left upper quadrant abdominal pain R10.12 Seborrheic dermatitis of scalp L21.9 Productive cough R05.8 History of tobacco abuse Z87.891 Medical History Medical History Anxiety about health Disorder of ear, left Diverticulitis of colon H/O SIGMOID COLECTOMY Hand pain, left Hyperlipidemia Perichondritis Seizures Smoker (10/19/16) Surgical History Surgical History Extraction of cataract B/L 04/2013 Ligation of fallopian tube Rotator Cuff Repair RIGHT S/P partial colectomy Trigger Finger release WRIST/THUMB SURGERY LEFT THUMB LEFT WRIST RIGHT THUMB Tobacco Smoking/Tobacco Use Status: Current every day Tobacco Type: cigarettes Smoking packs per day: 0.5 Smoking cigarettes per day: 10.0 Years smoked: 63 Smoking pack-years: 31.50 Passive smoking exposure: Yes Second hand exposure: Yes Alcohol Alcohol Intake: never Substance Use Substance use: Rarely Counseling provided: none Vital Signs and Lab Results Vital Signs Most Recent Vital Signs in EMR: Most Recent Vital Signs Temp Pulse Resp BP Pulse Ox 36.7 C 64 18 94/53 L 96 11/19/22 07:21 11/19/22 07:21 11/19/22 07:21 11/19/22 07:21 11/19/22 08:52 Point of Care Results Point of Care Results: Finger Stick Blood Glucose 158 11/18/22 21:04 Lab Results 11/19/22 05:58 11/19/22 05:58 Blood Type / Crossmatch: Patient ABO/Rh O Positive 11/18/22 Antibody Screen NEGATIVE 11/18/22 Crossmatch See Detail 11/18/22 Complete Blood Count: White Blood Count 7.50 10^3/uL (4.4-10.8) 11/19/22 05:58 Red Blood Count 2.52 10^6/uL (3.93-5.22) L 11/19/22 05:58 Hemoglobin 7.1 g/dL (11.2-15.7) L 11/19/22 05:58 Hematocrit 22.9 % (36.0-46.0) L 11/19/22 05:58 Platelet Count 223 10^3/uL (130-400) 11/19/22 05:58 Complete Metabolic Panel: Sodium 145 mmol/L (136-145) 11/19/22 05:58 Potassium 3.5 mmol/L (3.5-5.1) 11/19/22 05:58 Chloride 110 mmol/L (98-107) H 11/19/22 05:58 Carbon Dioxide 26.0 mmol/L (21.0-32.0) 11/19/22 05:58 BUN 28 mg/dL (7-18) H 11/19/22 05:58 Creatinine 1.2 mg/dL (0.55-1.02) H 11/19/22 05:58 Est GFR (CKD-EPI 2020) 45.76 (mL/min/1.73m2) 11/19/22 05:58 Magnesium 1.7 mg/dL (1.8-2.4) L 11/18/22 08:54 Calcium 9.3 mg/dL (8.5-10.1) 11/19/22 05:58 Albumin 3.4 g/dL (3.4-5.0) 11/18/22 08:54 Glucose 117 mg/dL (74-106) H 11/19/22 05:58 Liver Function Panel: Alanine Aminotransferase (ALT/SGPT) 36 U/L (14-59) 11/18/22 08:54 Aspartate Amino Transf (AST/SGOT) 32 U/L (15-37) 11/18/22 08:54 Coagulation Panel: No Data to Display Cardiac Panel: Troponin I < 50 ng/L (<or=60) 11/18/22 NT-Pro-B Natriuret Pep 1271 pg/mL (<300) H 11/18/22 Arterial Blood Gas: No Data to Display Venous Blood Gas: Venous Blood pH 7.35 (7.31-7.41) 11/18/22 08:54 Venous Blood Partial Pressure O2 40 mmHg 11/18/22 08:54 Venous Blood Partial Pressure CO2 43 mmHg (41-51) 11/18/22 08:54 Venous Blood Oxygen Saturation 70 % 11/18/22 08:54 Venous Blood HCO3 24 mmol/L (23-28) 11/18/22 08:54 Venous Blood Base Excess -2 mmol/L (-2-3) 11/18/22 08:54 Venous Blood Total Carbon Dioxide 24 mmol/L (24-29) 11/18/22 08:54 Pancreas Panel: No Data to Display Thyroid Panel: No Data to Display Infectious Disease: No Data to Display Blood Cultures: No Data to Display Toxicology Panel: No Data to Display Imaging and Studies Imaging and Studies Study information below may be from another EMR and interpreted by another provider. Please see original notes in EMR for more complete details. EKG Summary: EKG PATIENT NAME: Moy Crowell #: [id number] ORDERING PROVIDER: Silvia Henry #: [id number] PRIMARY CARE PROVIDER:Samir Walker DNP DATE/TIME OF SERVICE: 11/18/22801 : 3PERFORMING LOCATION: ER APPROVED REPORT Exam: Resting ECG Reason for Exam: sob Patient Location: E HR:97 bpm ECG Measurements Heart Rate 97 AXIS [place] 141 P 75 QRSd 75 QRS 27 QT 351 T68 QTc 439 Conclusion Sinus rhythm...normal P axis, V-rate 60- 99 Ventricular premature complex...V complex w/ short R-R interval. Sinus. Normal axis. PVCs. Normal intervals. No STEMI. I have reviewed and interpreted ECG and agree with software generated interpretation. <Electronically signed by SILVIA HENRY DO in OV> E-Sign Date: 11/18/22 E-Sign Time: 0849 ADDENDUM APPROVED REPORT Exam: Resting ECG Reason for Exam: sob Patient Location: E HR:97 bpm ECG Measurements Heart Rate 97 AXIS [place] 141 P 75 QRSd 75 QRS 27 QT 351 T68 QTc 439 Conclusion Sinus rhythm...normal P axis, V-rate 60- 99 Ventricular premature complex...V complex w/ short R-R interval. Sinus. Normal axis. PVCs. Normal intervals. No STEMI. I have reviewed and interpreted ECG and agree with software generated interpretation. I have reviewed and I agree with the emergency room physician's ECG interpretation. Electronically signed by: <Electronically signed by Carlene Marcus M.D. in OV> 11/18/22 0901 Cosigned by: Stress Test Summary: Patient Name: MOY CROWELL #: [id number]: DI Ordering Provider: Wanda Moreno NPAccount #: [id number]: REG CLI Primary Care Provider: Wanda Moreno NPDate of Exam: 04/28/16ex: F : 1940ge: 75 Exam(s) [id number] NM:MPI Resting & Stress GRP *[facility]* *[facility]* [address] [place] [address] Myocardial Perfusion Imaging - SPECT Regadenoson Date of study: 04/28/2016 *PATIENT PRESENTATION* Height: 147.3cm ((58in) ) Blood Pressure: Weight: 64.1kg ((141lb) ) BSA: 1.65m^2 Ordering physician: Yolie Carrera Impressions: Normal myocardial perfusion and contraction after pharmacological stress. Summary: 1. Myocardial perfusion imaging: No myocardial perfusion defects noted. 2. The calculated left ventricular ejection fraction after stress: 79%. LV global systolic function is normal. No left ventricular regional motion abnormality. 3. Stress ECG conclusions: The stress ECG is negative. 4. Baseline ECG: Normal ECG. Indication: R07.9. History: REASON FOR VISIT: INTERMITTENT CHEST PAIN DESCRIBES AN ACHE, NON RADIATING, REPORTS LASTS FOR LESS THAN 5 MINUTES, OCCURS AT REST AND DURING ACTIVITIES. SHE REPORTS NOTING THESE SYMPTOMS FOR PAST FEW MONTHS. SYMPTOMS RESOLVE WITH ASPIRIN. PT HAS CARDIAC RISK FACTORS: POSITIVE FAMILY HX, CURRENT SMOKER, HTN, HIGH CHOLESTEROL AND HISTORY OF PVD WITH ILIAC STENT. EKG SHOWS LEFT ATRIAL ENLARGEMENT, LIKELY DUE TO HER COPD. PMH: COPD. Risk factors: CURRENT SMOKER 5 CIGARETTES A DAY. Family history of coronary artery disease. Current tobacco use. Hypertension. Dyslipidemia. Cholesterol: 181mg/dl. HDL: 72mg/dl. LDL: 137mg/dl. Triglycerides: 118mg/dl. ALLERGIES: NO KNOWN ALLERGIES MEDICATIONS: ALBUTERAL SULFATE 2 PUFFS EVERY 4 HRS PRN. ASPERIN 81 MG DAILY. LISINOPRIL/HYDROCHLOROTHIAZIDE 10-12.5 MG TAKE ONE TAB DAILY. PRAVASTATIN SODIUM 40 MG AT BEDTIME. SPIRIVA 1 INHALATION DAILY. Imaging Technique: Protocol: Labs on the Gooson. Acquisition: Gated SPECT; 1 day - rest/stress. The patient was imaged in the supine position. Attenuation correction used. Isotope administration: - Rest. Tc[99m]-sestamibi. Dose: 10.2mCi. Injection time: 09:10 AM. Injection to stress time: 00:45. - Stress. Tc[99m]-sestamibi. Dose: 30.6mCi. Injection time: 10:20 AM. 1-2 min before end of exercise Baseline ECG: SINUS RHYTHM. HR 70 BPM. Normal ECG. Stress protocol: +--------+---+ + + !Stage !HR !BP (mmHg) !Comments ! +--------+---+ + + !Baseline!70 !184/78 (113)! ! +--------+---+ + + !1 min !100!188/78 (115)!Inject Regadenoson.! +--------+---+ + + !2 min !90 !186/76 (113)! ! +--------+---+ + + !4 min !88 !184/76 (112)! ! +--------+---+ + + !6 min !93 !186/78 (114)! ! +--------+---+ + + * Stress results: The rate-pressure product for the peak heart rate and blood pressure was 13707zw Hg/min. Stress ECG: STRESS TEST ENDED IN 6 MINUTES & 15 SECONDS BECAUSE ALL SYMPTOMS OF LEXISCAN SUBSIDED. HYPERTENSIVE BLOOD PRESSURES AT BASELINE AND THROUGHOUT TEST. NORMAL HEART RATE RESPONSE. NO ECTOPY. NO ANGINA. NO ISCHEMIA. The stress ECG is negative. Myocardial perfusion: Imaging information: gated. The image quality was excellent. Left ventricular size is normal. No myocardial perfusion defects noted. Ventricular Function (Wall Motion): The calculated left ventricular ejection fraction after stress: 79%. LV global systolic function is normal. No left ventricular regional motion abnormality. Study data: [id number] Yolie Carrera MD supervised and was readily available during the procedure. This study was interpreted by [facility]. Study status: Routine. Consent: The risks, benefits, and alternatives to the procedure were explained to the patient and informed consent was obtained. Procedure: Initial setup. A baseline ECG was recorded. Surface ECG leads and manual cuff blood pressure measurements were monitored. Heart sounds: Normal. Lung sounds: Normal. Regadenoson stress test. Stress testing was performed, with regadenoson by intravenous bolus, for a total dose of 0.4mgover 10.00sec, followed by a 5ml saline flush. The infusion was terminated due to per protocol. Study completion: All catheters inserted during the procedure were removed. The patient tolerated the procedure well and was discharged from the lab. Discharge: The patient left the laboratory in stable condition. Birthdate: Patient birthdate: 1940. Sex: Gender: female. Study date: Study date: 04/28/2016. Study time: 10:00 AM. Signature Documentation: - The imaging portion of this study was interpreted by [employer] Yolie Carrera MD. - The Stress ECG portion of this study was interpreted by Yolie Carrera MD. Electronically signed by Yolie Carrera 04/28/2016 12:51 Ordering provider: Wanda Moreno NP CC: TAPAN KAPOOR,PhD,YOLIE ~ Dictated by: AMAURY CARTER M.D.04/28/16 1330 <Electronically signed by ALMA ROSA LEE M.D.>04/29/16 1107 Disclaimer: The [facility] radiologist is signing only the Nuclear Medicine MPI Imaging exam portion of the report. Transcribed by: Nelli Squires04/28/16 1402 Echocardiogram Summary: Patient Name: Moy Crowell #: [id number]: ICU Ordering Provider: Tammi Barnard M.D. : ADM IN Primary Care Provider: Samir Casillas NPDate of Exam: 10/07/22Sex: F Admission Date: 10/06/22 : 1940 Age: 81 APPROVED REPORT EXAM: Comprehensive 2D, Doppler, and color-flow Echocardiogram Patient Location: In-Patient Room/Bed: [id number] Kettle Girl: Sherron Mane RDCS (AE) Indications: CHF, COPD, Smoker Other Information Study Quality: Fair. Technically limited study due to body habitus, inability to position patient exam done supine bedside. Conclusion Technically difficult study, poor parasternal views. Apical views are adequate The left ventricle is moderately hypertrophied. Cavity is small. EF is 55%. Wall motion is normal Right ventricular size and systolic function appears normal Left atrium is moderately dilated. Right atrial size is normal Aortic valve is calcified without stenosis or regurgitation Severe mitral annular calcification. Mild mitral regurgitation Normal tricuspid valve with mild regurgitation. Estimated right ventricular systolic pressure is 55 mmHg Wall motion Left Ventricle Ventricular cavity is small The left ventricular systolic function is normal. The left ventricular ejection fraction is within the normal range. 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 There is normal LV segmental wall motion. There is no ventricular septal defect visualized. LVEF is 55%. Right Ventricle The right ventricle is normal size. Right ventricular systolic function is normal The RVSP is 54.4mmHg. Atria Left atrium is moderately dilated. The right atrium size is normal. The interatrial septum is intact with no evidence for an atrial septal defect. Aortic Valve Aortic valve is calcified. Number of aortic valve leaflets could not be assessed. No hemodynamically significant valvular aortic stenosis. No aortic regurgitation is present. Mitral Valve Severe mitral annular calcification. No evidence of mitral valve stenosis. Mild mitral regurgitation. Tricuspid Valve The tricuspid valve is normal in structure. There is no tricuspid valve stenosis. Mild tricuspid regurgitation. Pulmonic Valve Pulmonic valve is not well visualized. There is no pulmonic valvular stenosis. There is no pulmonic valvular regurgitation. Great Vessels The aortic root is normal in size. Ascending aorta is not well visualized. The IVC collapses <50% with inspiration. Pericardium There is no pericardial effusion. 2D Dimensions IVSD d PLAX 0.90 cm F: 0.6-1.0LV Vol A2C d MOD 67.4 mL LVPW d PLAX 0.90 cm F: 0.6 - 1.0LV Vol A4C d MOD 57.2 mL LVID d PLAX 3.92 cm F: 3.8 - 5.2LA vol/ BSA A2C s A-L47.3 mL/m2 LVDs 2.85 cm F: 2.2 - 3.5LA vol/ BSA A4C s A-L39.2 mL/m2 Ao Root d 2.44 cm F: 2.7 - 3.3LA Vol/ BSA Biplane s A-L 43.4 mL/m2 RA Area A4C10.42 cm2LA Area A4C s MOD 19.83 cm2 RA Vol/ BSA A4C s A-L 18.2 mL/m2LA Area A2C s MOD 21.95 cm2 LV EF Teichholz 51.8 %LV EF A4C MOD 54.5 % LVEF (Philippe's)55.23 % F: 54 - 74LV EF A2C MOD 54.4 % LV Bpjeio33.93 mL F: 46 - 106LV EF Biplane MOD 55.2 % LV Volume Index37.45 mL/m2 F: 29 - 61SV35.15 mL LV Vol Biplane MOD 63.7 mLSV Index24.42 mL/m2 FS26.05 % M-Mode TAPSE 2.47 cm (M/F) >1.7 LV Diastology MV E' medial0.060 (>0.07 m/s)E/A Ratio 0.9 LV E/e MED24.65 (<14)MV E Vmax 1.48 (0.4-1.3 m/s) MV E' lateral0.062 (>0.1 m/s)MV A Vmax 1.65 (0.4-1.3 m/s) LV E/e LAT23.65 (<14)MV E/A Ratio 0.87 MV E/E' medial 24.66 MV E/E' nefrvnh16.69 Aortic Valve LVOT Area2.32 cm2AoV Area Vmax1.47 cm2 LVOT Vmax 1.57 m/sAoV Area/ BSA (Vmax)1.02 cm2/m2 LVOT Mean Eamon.1.03 m/sAVA Mean Eamon.1.30 cm2 LVOT Peak Grad 9.8 mmHgAVA Mean Eamon. Index0.90 cm2/m2 LVOT Mean Grad 5.0 mmHg LVOT VTI0.340 m LVOT Diam s 1.70 cm AoV Vmax2.46 m/s Velocity Ratio 0.64 AoV Mean Eamon.1.84 m/s AoV Peak Grad24.2 mmHg LVOT SV 78.75 mL AoV Mean Grad15.0 mmHg AoV VTI0.516 m AoV Area VTI1.53 cm2 AoV Area/ BSA (VTI)1.06 cm/m2 Mitral Valve MV DT 301 (160-240 msec) MV PHT87 msec MV Area PHT 2.52 cm2 Pulmonary Valve PV Vmax 1.82 (0.5-1.5 m/s)RVOT Peak Gr.1.35 mmHg PV Peak Grad 13.2 mmHgRVOT Mean Gr.0.75 mmHg PV Mean Grad 9.4 mmHgRVOT VTI0.119 m PV VTI 0.409 mRVOT Vmax 0.58 m/s Tricuspid Valve TR Peak Grad 46.4 mmHgTR Vmax 3.41 m/s RA Pressure 8.00 mmHg RVSP (TR) 54.4 mmHg Ordered By: Tammi Barnard M.D. CC: Dictated By: Carlene Marcus M.D. 10/07/22 1059 <Electronically signed by Carlene Marcus M.D. in OV> 10/07/22 1120 Transcribed By: Carlene Marcus MD This is privileged, confidential information intended only for the provider named. Any use or distribution by any person other than this provider is strictly prohibited. If you receive this report in error, please notify us immediately at [phone] and return the original report to us at the address above. Thank-you. Carotid Artery Summary:: Patient Name: Moy Crowell #: [id number]: ICU Ordering Provider: Tammi Barnard M.D. : ADM IN Primary Care Provider: Samir Casillas NPDate of Exam: 10/07/22Sex: F Admission Date: 10/06/22 : 1940 Age: 81 Exam(s) US CAROTID EXAM: US CAROTID CLINICAL HISTORY: h/o carotid stenosis. TECHNIQUE: Ultrasound carotids performed using grayscale, color-flow, and spectral Doppler imaging. COMPARISON: CT angiography study of 02/01/2022. FINDINGS: Anterior circulation: The right common and internal carotid arteries are occluded. This is consistent with findings on the prior CT a study of 02/22. Mildly elevated velocities noted in the proximal left ICA peak systolic velocity 146 cm/sec. Consistent with moderate stenosis of 50-69 percent almost at the level the carotid bulb. Posterior circulation: Antegrade flow demonstrated in both vertebral arteries. Please note that the left vertebral artery is dominant as per present MRA study and prior CT a study of February 2022. The right vertebral artery is a thinner vessel and terminates at the skull base at the level the right posterior inferior cerebellar artery. Measurements: R Bulb: 0 cm/s PS / 0 cm/s ED R CCA: 0 cm/s PS / 0 cm/s ED R ECA: 64.7 cm/s PS / 10.2 cm/s ED R ICA Prox: 14.1 cm/s PS / 0 cm/s ED R ICA Mid: 5.6cm/s PS / 1.3cm/s ED R ICA Distal: 7cm/s PS /0cm/s ED R Vert: 75 cm/s PS / 16.8 cm/s ED R SVR: 0 R DVR: 0 L Bulb: 137.5 cm/s PS / 21.1 cm/s ED L CCA: 89.2 cm/s PS / 17.1 cm/s ED L ECA: 163.5 cm/s PS / 13.9 cm/s ED L ICA Prox: 145.9 cm/s PS / 17.4 cm/s ED L ICA Mid: 100.3cm/s PS / 19.1cm/s ED L ICA Distal: 93.2cm/s PS / 18.9cm/s ED L Vert: 77.6 cm/s PS / 19.9 cm/s ED L SVR: 1.6 L DVR: 1 IMPRESSION: 1. Occluded right common and internal carotid arteries. 2. Moderate stenosis at the level of the left carotid bulb-proximal ICA. 3. Left vertebral artery is dominant. 4. See separate MRA dictation from today. Criteria for Carotid Stenosis: Normal: ICA PSV <125 cm/s no plaque or intimal thickening is visible. <50% stenosis: ICA PSV <125 cm/s and plaque or intimal thickening is visible. 50-69% stenosis: ICA PSV is 125-250 cm/s and plaque is visible. >70% stenosis to near occlusion: ICA PSV >250 cm/s with visible plaque and luminal narrowing. DATA REPOSITORY: Anesthesia Assessment and Plan Anesthesia History Personal History: No History of Anesthesia Complications Family History: No Family History of Anesthesia Complications Exercise Tolerance Exercise Tolerance: Metabolic Equivalents<4 Pertinent Negatives Pertinent Negatives: No Symptoms of GERD Cardiac & Pulmonary Exam Cardiac Exam: Normal S1/S2 Heart Sounds Pulmonary Exam: Clear Bilateral Breath Sounds Implantable Cardiac Device Does patient have a Pacemaker or an ICD?: No Airway Exam Known Difficult Airway: No Mallampati Class: 2 Mouth Opening: Normal (> 3cm) Thyromental Distance: Greater than 3 cm Neck Range of Motion: Full ROM Neck Circumference: Normal Teeth Condition: Normal Dentition and Generalized Poor Dentition ASA Classification ASA Score: ASA 4 Emergency Case?: Yes NPO Status NPO Status: NPO Clears >2 hours, Solids >8 hours Anesthesia Plan Resuscitation Status: Full Code Anesthesia Technique: MAC Anesthesia (with airway localization) Airway Planned: Natural Airway Monitors Used: Standard Monitors Preoperative Comments:: PMHx: CVA 10/08/2022, Right Carotid 100% occluded, Left 50-69%, PAH (RVSP 50s), COPD, acute on chronic CHF. Has received at least 1unit RBCs. Patient with suspected bleed and cannot be delayed. If elective patient would be delayed 6 months due to recent CVA. Discussed risk at length and patient is amenable to moving forward with the procedure and anesthetic.
--- NOTE | 2022-11-19 09:52 | INITIAL_ITS ---
Date of service: 11/19/22 Time of Service: 09:52 Care Management Initial Assmt Initial Assessment REASON FOR HOSPITALIZATION:: GI Bleed PREVIOUS FUNCTIONAL STATUS/SOCIAL/FAMILY SUPPORTS:: Kathleen lives alone in a single family home in [place]. She has 4 children, two live locally and the other 2 are out of state. The family is close and the children are supportive, especially the ones who live in the area. 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 She is independent with ADLs and uses a cane and a walker. Kathleen currently receives home health services for RN, PT and OT and is connected to a mattress spring encaser (Lauren) at [facility]. CURRENT FUNCTIONAL STATUS:: Kathleen was sitting up in bed when CM met with her. She was friendly and engaged easily with CM. Kathleen acknowledged that she feels much better than when she first arrived. She spoke about her family and how she does not get to see her daughter in [place] or son in [place] very often. Kathleen also talked about the many years that she dealt in [employer] and the various places they would set up booths at [employer]. She indicated that she found it enjoyable. She is limited by arthritis so can no longer do some of the other things she enjoys such as knitting. ADVANCE DIRECTIVES:: On file. Daughter Alexia Tomlinson is alternate. HCA listed is . Has patient been provided with info about the portal/API?: Yes Did the patient sign up for the portal?: Yes CODE STATUS:: DNR/DNI INSURANCE COVERAGE / FINANCIAL ISSUES:: Medicare CURRENT HOME/COMMUNITY SERVICES/EQUIPMENT:: Home health services: PT, OT, RN, CLOTH WINDER Has a cane and a walker and tub chair and commode. She would also like a bed rail. PRIMARY CARE PHYSICIAN:: Samir Santa POTENTIAL DISCHARGE NEEDS:: follow up with PCP and plan pf care PATIENT/FAMILY EDUCATION NEEDS:: Review of discharge instructions, limitations, activity, follow up plan, discuss Ask Me Three TRANSPORTATION:: via private vehicle with family PLAN:: Anticipate Kathleen will return home with a resumption of home health services, when ready for discharge. She will follow up with community providers and plan of care and transport with family. CM will follow and assess for discharge needs. 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 [place] aorto bifem bypass LEFT ILIAC STENT [facility] [place] 03/2010 Polyp of colon (Acute) tubular adenoma Shoulder arthralgia (Chronic) Carotid stenosis, left (Acute) 50-69% stenosis 04/2022; complete obstruction right internal carotid. Grief reaction (Chronic) Spouse 08/13/21 passed CVA (cerebral vascular accident) (Chronic) Neuro est. between 04/2020-11/2021 Counseling regarding advanced directives and goals of care (Acute) Dilated bile duct (Acute ~02/2022) s/p ERCP [facility], 10mm dilation, no masses. Due repeat MRI in 10/2022. Left rotator cuff tear arthropathy (Chronic) 40 mg Depo-Medrol injection: 04/13/2022 Nail dystrophy (Acute) Left upper quadrant abdominal pain (Acute) Seborrheic dermatitis of scalp (Acute) Productive cough (Acute) History of tobacco abuse (Acute) Medical History Anxiety about health Disorder of ear, left Diverticulitis of colon H/O SIGMOID COLECTOMY Hand pain, left Hyperlipidemia Perichondritis Seizures Smoker (10/19/16) Surgical History Extraction of cataract B/L 04/2013 Ligation of fallopian tube Rotator Cuff Repair RIGHT S/P partial colectomy Trigger Finger release WRIST/THUMB SURGERY LEFT THUMB LEFT WRIST RIGHT THUMB Family History Mother Diabetes Essential hypertension Stroke Father , 55 Heart disease Stroke Brother , 71 Complications from surgery No problems noted. Son No problems noted. Son No problems noted. Daughter No problems noted. Daughter No problems noted. Social History Smoking/Tobacco Use Status: Current every day Tobacco Type: cigarettes Smoking packs per day: 0.5 Smoking cigarettes per day: 10.0 Years smoked: 63 Smoking pack-years: 31.50 Tobacco: How many years used: 63 Quit status: considering quitting Second Hand Exposure: Yes Smoking risk assessment performed?: Yes Alcohol Intake: never Drug use: Rarely Counseling given: No Counseling provided: none Caregiver/Support person: No Household members: none Housing: house Number of Children: 4 Communication Needs: Hard of Hearing Do you need help understanding health information?: Rarely Pets and animals: Yes Pets and animals: dog(s) Sexually active: No Do you think of yourself as: straight/heterosexual Current gender identity: female What is your relationship status?: How often do you talk on the phone with friends or family?: three or more times per week Do you belong to any clubs or organized social groups?: no Panel score (0-1 are the most socially isolated patients): 1 What type of physical activity do you participate in: none Darlene/Mosque: No preference Special darlene needs: No Seatbelt use: always Helmet use: No Drive intox or ride w/intox 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
[2022-11-19] MEDS: Lactated Ringers 1,000 ML 30 ML IV (11:21)
--- NOTE | 2022-11-19 11:32 | STOM_PTH ---
PATIENT: Kathleen Jaffe LOC: U#:[id number] AGE/SX: 82/F ROOM: [facility] RE11/18/[address]: Dheeraj Vasquez : 1940 BED: A DIS: 11/20/2022 SPEC #: [id number] RECD: 11/19/22 12:25 STATUS: CONOR REQ #: [id number] JEANINE: 11/19/22 11:[address]: Dheeraj Vasquez DEPT: Surgical Specimen RECD BY: Cheyanne Emerson ENTERED: 11/19/22 12:27 SP TYPE: STOMACH OTHR DR: Samir Walker DNP Tissues: 1 - STOMACH BIOPSY Procedures: GROSS AND MICRO LEVEL 4 Comments: [id number]
--- NOTE | 2022-11-19 12:25 | W.PM.ENDDOP ---
Date of service: 11/19/22 Time of Service: 12:25 Endoscopy Report DATE OF PROCEDURE: 11/19/22 PRE-OP DIAGNOSIS: Anemia POST-OP DIAGNOSIS: same PROCEDURE: EGD with biopsies SURGEON: Konstantin Lee ANESTHESIA TYPE: General:No Airway ESTIMATED BLOOD LOSS: 5 PATHOLOGY: other (Gastric biopsies) COMPLICATIONS: None DISPOSITION: floor INDICATIONS: Kathleen is an 82-year-old woman who presents to the hospital with shortness of breath. She is found of anemia. This was associated with initiation of aspirin and Plavix therapy for secondary prevention of stroke. I was consulted for EGD to rule out gastritis and peptic ulcer disease as a source of her anemia PROCEDURE START TIME: 11:28 PROCEDURE END TIME: 11:33 FINDINGS: Punctate area of erythema along the greater curvature of the cardia. Otherwise normal-appearing esophageal, gastric and duodenal mucosa PROCEDURE DESCRIPTION: After the initiation of monitored anesthetic care, and with the assistance of a bite block, I advanced a standard gastroscope through the mouth past the hypopharynx and into the esophagus.? Under the direct vision of the scope, I advanced down the esophagus into the stomach.? Once I entered the stomach, I performed a brief inspection, followed by retroflexion towards the gastric cardia.? There was a punctate area of erythema in the gastric cardia, towards the greater curvature. I estimated at less than 0.25 cm in biggest dimension. It does not appear consistent with acute gastric ulceration. The edges are flat, in fact majority of the lesion is flat. There are no stigmata of recent bleeding.? After that, I gently advanced the scope around the incisura angularis and examined the pylorus.? This also appeared normal.? Next, I advanced the scope through the pylorus into the duodenum.? The mucosa was pink and healthy appearing.? There were no abnormalities.? I was able to visualize bile draining into the duodenum through the ampulla Vater. I saw no evidence of peptic ulcer disease within the duodenum. ?Next, I began retracting the endoscope.? I examined the entire gastric lining once again. I did not see any other abnormalities. I did perform some random biopsies of the gastric antrum and body to rule out Helicobacter pylori as a source I then gently desufflated some of the stomach, and withdrew the endoscope into the distal esophagus. The GE junction and Z-line were normal-appearing at 36 cm. I did not see any evidence of Dickens's esophagus. ?Finally, I withdrew the scope along the length of the esophagus taking great care to examine the entirety of the mucosa.? I did not appreciate any abnormalities.
--- NOTE | 2022-11-19 14:47 | W.ANESPOSTOP ---
Postoperative Evaluation Date, Time and Location Date Performed: 11/19/22 Time Performed: 14:47 Patient Location: Day Surgery Unit Vital Signs Most Recent Imported Vital Signs: Most Recent Vital Signs Temp Pulse Resp BP Pulse Ox 36.9 C 73 18 148/49 H 94 11/19/22 14:21 11/19/22 14:21 11/19/22 14:21 11/19/22 14:21 11/19/22 14:21 Pain Score Most Recent Pain Score: Most Recent Pain Score Pain Level 0 11/19/22 11:51 Assessment Mental Status: Awake (Alert & Oriented to Patient Baseline) Airway and Respiratory Function: Patent airway with normal (patient baseline) respiratory exam Cardiovascular Function: Hemodynamically Stable Hydration Status: Adequately Hydrated Nausea & Vomiting: No Nausea or Vomiting Pain: Pt. Denies Any Pain Peripheral Nerve Block: Patient did not receive a nerve block Postoperative Comments:: Patient seen earlier today and was doing well. Denied questions or concerns.
--- NOTE | 2022-11-19 17:29 | NUR.NOTE ---
Blood Transfusion ended, No reaction , no chest pain, no chill, no puritis. Pt alert and oriented x3. Nursing Note:
[2022-11-19] MEDS: tiZANidine 4 MG TABLET PO (20:01)
[2022-11-19] MEDS: Atorvastatin 40 MG TAB 80 MG PO (20:01)
[2022-11-19 20:23] LABS: HCT 28.4 % (36.0-46.0); HGB 9.2 g/dL (11.2-15.7)
[2022-11-20 06:48] VITALS: BP 138/64; PULSE 60; RESP 20; TEMP 36.9; O2SAT 94
[2022-11-20 07:22] LABS: Abs Immature Grans 0.05 10^3/uL (0.0-0.06); Absolute Basophil Count 0.02 10^3/uL (0.0-0.2); Absolute Eosinophil Count 0.04 10^3/uL (0.0-0.7); Absolute Lymphocyte Count 1.73 10^3/uL (1.2-3.4); Absolute Monocyte Count 1.08 10^3/uL (0.1-0.8); Absolute Neutrophil Count 5.78 10^3/uL (1.2-6.7); Basophils % 0.2; Eosinophils % 0.5; HCT 30.1 % (36.0-46.0); HGB 9.6 g/dL (11.2-15.7); Immature Grans % 0.6; Lymphocytes % 19.9; MCH 28.2 pg (27.0-33.0); MCHC 31.9 % (32.0-36.0); MCV 88 fL (80-95); MPV 9.7 fL (8.0-11.0); Monocytes % 12.4; Neutrophils % 66.4; Platelet Count 227 10^3/uL (130-400); RBC 3.41 10^6/uL (3.93-5.22); RDW 15.8 % (11.7-14.6); RDW-SD 50.9 fL
[2022-11-20 07:31] LABS: BUN 30 mg/dL (7-18); CREATININE 1.3 mg/dL (0.55-1.02); Chloride 108 mmol/L (98-107); Estimated GFR 41.57 (mL/min/1.73m2); Glucose 96 mg/dL (74-106); Magnesium 1.9 mg/dL (1.8-2.4); Sodium 145 mmol/L (136-145)
[2022-11-20] MEDS: tiZANidine 4 MG TABLET PO (07:46)
[2022-11-20] MEDS: Sertraline 100 MG TAB PO (07:47)
[2022-11-20] MEDS: Fluticasone NASAL SPRAY 16 GM BTL NS (07:48)
[2022-11-20] MEDS: Umeclidinium 7 CAP INHALER 1 CAP IH (07:52)
[2022-11-20] MEDS: Budesonide/Formoterol 80/4.5 6.9 GM 60 PUFF INH IH (07:56)
[2022-11-20] MEDS: PANTOPRAZOLE 80 MG in Normal Saline 100 ML 10 MG IV (08:35)
[2022-11-20] MEDS: Potassium Chloride 20 MEQ TABCR 40 MEQ PO (09:49)
--- NOTE | 2022-11-20 10:47 | CMDISCH_ITS ---
Date of service: 11/20/22 Time of Service: 10:47 LACE Index Scoring Tool Questions: Length of Stay (in days): 2 Was the patient admitted via the E.D.?: Yes Comorbidities: Cerebrovascular Disease, PVD, Congestive Heart Failure and Chronic Pulmonary Disease E.D. 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 She will follow up with community providers and plan of care and transport with family. Patient/Family Education Needs: Review of discharge instructions, limitations, activity, follow up plan, discuss Ask Me Three Services Needed at Discharge: Home Health Care Services
--- NOTE | 2022-11-20 10:50 | W.PM.DS.N ---
Date of service: 11/20/22 Time of Service: 10:50 DS: Diagnosis Discharge Diagnosis (1) Anemia: Status: Chronic Discharge Plan Disposition Patient Disposition: Home Condition: Improving Discharge Details Reason For Visit: GI Bleed Admit Date/Time: 11/18/22 14:27 Admit Provider: Dheeraj Vasquez Attending Provider: Dheeraj Vasquez Primary Care Provider: Samir Casillas Hospital Course Hospital Course: This is a 82 yo female with past medical history of COPD, CHF, pulmonary hypertension, recent CVA who presented to the [facility] ED for dyspnea and chest tightness for 2-3 weeks and getting worse over the the past couple of days. She was seen by pulmonary who feels her symptoms are more a combination of acute anemia and pulmonary edema from CHF.? She was admitted to the hospital and surgery was consulted. In the ED Hemoglobin was measured at 6.0 which was down from 11.4 during her last hospital encounter.? Her stool was tested and found to be guaiac positive. She received 2 units of blood during her hospitalization. She underwent an endoscopy and had no evidenced of a peptic ulcer or no acute bleeding. Random biopsies were collected. Her potassium was found to be low and was repleted. She is being discharged with potassium chloride 20 meq BID. Her hemoglobin leveled at around 9. She should have her labs drawn on Tuesday for CBC and CMP by home health. 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 Home Meds and New Rx's Prescriptions: New potassium chloride [K-Tab] 20 mEq tablet extended release 20 meq PO BID Qty: 30 0RF Continued lisinopril-hydrochlorothiazide 20-25 mg tablet 1 tab PO DAILY Qty: 90 1RF Centrum Silver Women 8 mg iron-400 mcg-300 mcg tablet 1 tab PO DAILY ketoconazole 2 % shampoo 1 applic topical .Twice a week PRN (Reason: seborrheic derm) Qty: 120 0RF Rx Instructions: Apply to wet scalp twice a week, leave on for 3-5 minutes, then rinse well. use for 2-4 weeks Incruse Ellipta 62.5 mcg/actuation blister with device 1 inh inhalation DAILY Qty: 30 12RF mometasone 0.1 % Cream 0 g topical BID Qty: 0 0RF budesonide-formoterol [Symbicort] 80-4.5 mcg/actuation Hfa Aerosol Inhaler 2 puff inhalation BID Qty: 0 0RF clopidogrel 75 mg Tablet 75 mg PO DAILY Qty: 0 0RF docusate sodium [Colace] 100 mg Capsule 100 mg PO TID PRN PRNQty: 0 0RF Inhaler, Assist Devices [Pocket Chamber] 1 ea miscellaneous DIRECTED Qty: 0 0RF tizanidine 4 mg tablet 4 mg PO BID Patient Comments: TAKE ONE TABLET BY MOUTH TWICE A DAY fluticasone propionate [Flonase Allergy Relief] 50 mcg/actuation spray,suspension 1 spray intranasal DAILY Rx Instructions: administer into each nostril aspirin 81 mg tablet,delayed release (DR/EC) 81 mg PO DAILY Patient Comments: TAKE ONE TABLET BY MOUTH EVERY DAY albuterol sulfate 90 mcg/actuation HFA aerosol inhaler 2 puff inhalation 6XD PRNQty: 8.5 0RF No Action pantoprazole 40 mg tablet,delayed release (DR/EC) 40 mg PO DAILY@0730 Qty: 90 3RF sertraline 100 mg tablet 100 mg PO DAILY Qty: 90 3RF albuterol sulfate 2.5 mg /3 mL (0.083 %) solution for nebulization 2.5 mg inhalation Q4H PRN (Reason: shortness of breath or wheezing) Qty: 180 0RF rosuvastatin 40 mg tablet 40 mg PO DAILY Qty: 90 3RF Discharge Instructions Instructions: Potassium Chloride (By mouth), Pantoprazole (By mouth), Gastrointestinal Bleeding (DC), Heart Healthy Diet (DC), Hyperkalemia (DC) Additional Instructions: Continue pantoprazole 40 mg daily. Start potassium 20 meq twice a day. You can resume a normal diet. Recommend checking your hemoglobin and electrolytes on Tuesday11/23/2022, call the lab for an appointment. Home Health Services RN, PT, OT and AIR REDUCTION EQUIPMENT OPERATOR will resume. Stand Alone Forms: Nursing Discharge Form Referrals: Samir Casillas FILM SORTER [Primary Care Provider] - (Call [phone] to make an Appointment in the next 1-2 weeks) Activity:: Activity as Tolerated Equipment/Supplies:: No Equipment Needed Diet:: Low Sodium Discharge Orders Discharge Orders: Discharge Order (Routine); Ordered 11/20/22 Ordered By: Olivia Castro Other Ambulatory Orders: Complete Blood Count w/Diff (Routine) Timeframe: 20221123 Location: None Selected Ordered By: Olivia Castro Comprehensive Metabolic Panel (Routine) Timeframe: 20221123 Location: None Selected Ordered By: Olivia Castro Discharge Data Discharge Date/Time-TO BE ENTERED AT DEPARTURE: 11/20/22 13:14 DS: Summary Time Spent with Patient providing and/or coordinating discharge services: Greater than 30 minutes Status at Discharge Functional status at discharge: uses cane/walker Overall status at discharge: patient is progressing back to baseline Mental Status: mental status grossly normal Speech and Movement: speech and movement normal Mood: congruent mood Affect: normal affect Exam Const General: cooperative, comfortable and no acute distress Nutritional Appearance: average body habitus Orientation: alert, awake and oriented x3 HENMT Head: normal to inspection, normocephalic and atraumatic Mouth: moist mucous membranes abnormal (slightly dry) Neck Neck: normal visual inspection, full ROM and no JVD Chest Chest: normal inspection of the chest Resp Effort & Inspection: normal respiratory effort Auscultation: clear to auscultation bilaterally and diminished lung sounds (bases bilaterally) Cardio Rate: regular rate Rhythm: regular rhythm GI Inspection: normal to inspection Palpation: soft, no masses and nontender Skin General skin exam: no rashes or lesions noted Neuro General: patient alert, patient awake and patient oriented x3 Cognition: normal cognition Speech: speech normal Motor: movement abnormality noted (left sided weakness residual from previous CVA, at baseline) Psych Mental Status: mental status grossly normal Speech and Movement: speech and movement normal Mood: congruent mood Affect: normal affect DS: Data Vitals/I&O Vitals and I&O: Vital Signs Temperature 36.9 C 11/20/22 06:48 Temperature Source Tympanic 11/20/22 06:48 Pulse 60 11/20/22 06:48 Pulse Rhythm Regular 11/20/22 09:05 Pulse 88 11/18/22 15:10 Respiratory Rate 20 11/20/22 06:48 Respiratory Effort Normal 11/20/22 09:05 Respiratory Depth Normal 11/20/22 09:05 Respiratory Pattern Normal 11/20/22 02:41 Blood Pressure 138/64 11/20/22 06:48 Blood Pressure Mean 88 11/18/22 15:00 Blood Pressure Position Sitting 11/18/22 07:56 Pulse Oximetry 94 11/20/22 06:48 Oxygen Delivery Method Nasal Cannula 11/20/22 06:48 Oxygen Flow Rate 1 11/20/22 06:48 Pain Level 0 11/19/22 11:51 Intake & Output 11/19/22 11/19/22 11/20/22 11:59 23:59 11:59 Intake Total 200 / 800 600 / 800 98.333 / 98.333 Output Total 400 / 550 150 / 550 300 / 300 Balance -200 / 250 450 / 250 -201.667 / -201.667 Weight 51.4 kg 53.2 kg Intake: IV 200 / 425 225 / 425 98.333 / 98.333 Blood Product 325 / 325 Rbc Leuko Reduced Unit 325 / 325 [id number] Other 50 / 50 Rbc Leuko Reduced Unit 50 / 50 [id number] Output: Urine 400 / 550 150 / 550 300 / 300 Other: Urine Color Yellow Yellow Yellow Urine Appearance Cloudy Clear Clear Urine Odor None Normal Normal Voiding Methods Bedside Commode Bedside Commode Bedside Commode Data Completed and Pending Labs on day of discharge: Labs from last 24 hours 11/20/22 11/20/22 11/19/22 06:12 06:12 20:15 WBC 8.70 RBC 3.41 L Hgb 9.6 L 9.2 L D Hct 30.1 L 28.4 L MCV 88 MCH 28.2 MCHC 31.9 L RDW 15.8 H Plt Count 227 MPV 9.7 Immature Gran % 0.6 Neutrophils % 66.4 Lymphocytes % 19.9 Monocytes % 12.4 Eosinophils % 0.5 Basophils % 0.2 Nucleated RBC % 0.0 Absolute Neutrophils 5.78 Absolute Lymphocytes 1.73 Absolute Monocytes 1.08 H Absolute Eosinophils 0.04 Absolute Basophils 0.02 Sodium 145 Potassium 3.0 L Chloride 108 H Carbon Dioxide 26.0 Anion Gap 11.0 BUN 30 H Creatinine 1.3 H Est GFR (CKD-EPI 2020) 41.57 Glucose 96 Calcium 9.0 Magnesium 1.9 Patient ABO/Rh Antibody Screen Crossmatch 11/18/22 10:49 WBC RBC Hgb Hct MCV MCH MCHC RDW Plt Count MPV Immature Gran % Neutrophils % Lymphocytes % Monocytes % Eosinophils % Basophils % Nucleated RBC % Absolute Neutrophils Absolute Lymphocytes Absolute Monocytes Absolute Eosinophils Absolute Basophils Sodium Potassium Chloride Carbon Dioxide Anion Gap BUN Creatinine Est GFR (CKD-EPI 2020) Glucose Calcium Magnesium Patient ABO/Rh O Positive Antibody Screen NEGATIVE Crossmatch See Detail PFSH All Active Problems Chronic obstructive lung disease (Chronic) PFT'S 2009 FEV 1.15=59% continues to smoke Constipation (Chronic 11/14/17) Essential hypertension (Chronic 03/30/13) Lumbago (Chronic 05/10/13) Peripheral vascular disease (Acute) Jul 2014 [facility] [place] aorto bifem bypass LEFT ILIAC STENT [facility] [place] 03/2010 Polyp of colon (Acute) tubular adenoma Shoulder arthralgia (Chronic) Carotid stenosis, left (Acute) 50-69% stenosis 04/2022; complete obstruction right internal carotid. Grief reaction (Chronic) Spouse 08/13/21 passed CVA (cerebral vascular accident) (Chronic) Neuro est. between 04/2020-11/2021 Counseling regarding advanced directives and goals of care (Acute) Dilated bile duct (Acute ~02/2022) s/p ERCP [facility], 10mm dilation, no masses. Due repeat MRI in 10/2022. 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) Pulmonary hypertension (Acute) Pulmonary nodules/lesions, multiple (Acute) Anemia (Chronic) Pleural effusion (Acute) Pulmonary edema (Acute) GI bleed (Acute) Pleural effusion (Acute) Hypoxia (Acute) Hypernatremia (Acute) Hypomagnesemia (Acute) Anemia (Chronic) Acute exacerbation of chronic obstructive pulmonary disease (Acute) Congestive heart failure (Chronic) Medical History Anxiety about health Disorder of ear, left Diverticulitis of colon H/O SIGMOID COLECTOMY Hand pain, left Hyperlipidemia Perichondritis Seizures Smoker (10/19/16) Surgical History Extraction of cataract B/L 04/2013 Ligation of fallopian tube Rotator Cuff Repair RIGHT S/P partial colectomy Trigger Finger release WRIST/THUMB SURGERY LEFT THUMB LEFT WRIST RIGHT THUMB Family History Mother Diabetes Essential hypertension Stroke Father , 55 Heart disease Stroke Brother , 71 Complications from surgery No problems noted. Son No problems noted. Son No problems noted. Daughter No problems noted. Daughter No problems noted. Social History Smoking/Tobacco Use Status: Current every day Tobacco Type: cigarettes Smoking packs per day: 0.5 Smoking cigarettes per day: 10.0 Years smoked: 63 Smoking pack-years: 31.50 Tobacco: How many years used: 63 Quit status: considering quitting Second Hand Exposure: Yes Smoking risk assessment performed?: Yes Alcohol Intake: never Drug use: Rarely Counseling given: No Counseling provided: none Caregiver/Support person: No Household members: none Housing: house Number of Children: 4 Communication Needs: Hard of Hearing Do you need help understanding health information?: Rarely Pets and animals: Yes Pets and animals: dog(s) Sexually active: No Do you think of yourself as: straight/heterosexual Current gender identity: female What is your relationship status?: How often do you talk on the phone with friends or family?: three or more times per week Do you belong to any clubs or organized social groups?: no Panel score (0-1 are the most socially isolated patients): 1 What type of physical activity do you participate in: none Darlene/Caodaism: No preference Special darlene needs: No Seatbelt use: always Helmet use: No Drive intox or ride w/intox dedicated local truck driver: No Do you feel safe at home: Yes Do you feel safe in your relationship?: Yes Time Spent with Patient Time Spent with Patient: 45-69 minutes Time was spent: preparing to see the patient(eg.review tests), obtaining and/or reviewing separately otained hiistory, ordering medications,tests, procedures, referring, communicating with other health critical care nurse, indepentently interpreting results, counseling the patient and care coordination
== END 2022-11-20 13:14 | disposition home or self-care (01) | DRG 378 ==
LOC: ER 12:56 → MS 15:30
PROVIDERS: Nurse Practitioner Acute Care; Nurse Practitioner Family; Surgery; Admitting Provider Internal Medicine; Emergency Provider Student in an Organized Health Care Education/Training Program; PCP Nurse Practitioner Family; Visit Provider Internal Medicine
PROC: 0DJ68ZZ Inspection of Stomach, Via Natural or Artificial Opening Endoscopic (ICD-10-PCS; CPT 43235; principal; 2022-11-19 09:45)
DX: K92.2 Gastrointestinal hemorrhage, unspecified (principal); E87.0 Hyperosmolality and hypernatremia; I69.354 Hemiplegia and hemiparesis following cerebral infarction affecting left non-dominant side; D64.9 Anemia, unspecified; R07.89 Other chest pain; I50.9 Heart failure, unspecified; J44.9 Chronic obstructive pulmonary disease, unspecified; I11.0 Hypertensive heart disease with heart failure; R91.8 Other nonspecific abnormal finding of lung field; I27.20 Pulmonary hypertension, unspecified; R09.02 Hypoxemia; E83.42 Hypomagnesemia; K59.09 Other constipation; M54.50 Low back pain, unspecified; I73.9 Peripheral vascular disease, unspecified; E78.5 Hyperlipidemia, unspecified; F17.210 Nicotine dependence, cigarettes, uncomplicated; I65.23 Occlusion and stenosis of bilateral carotid arteries; I65.01 Occlusion and stenosis of right vertebral artery; K31.89 Other diseases of stomach and duodenum; E87.6 Hypokalemia
CPT/HCPCS: 43239; 36415; 36430; 76604; 80048; 80053; 82805; 86850; 86900; 86901; 86920; 88305; 93005; 93308; 94640; 96374; 96375; 99222; 99285; 99291; 99292; 71046; 81003; 83735; 83880; 84484; 85014; 85018; 85025; 93010; 93971; 94664; 94760; 99223; J1941; J2930; J3475; J3490; P9016

== ENCOUNTER 2022-11-25 16:27 | Outpatient (REF) | payer MEDICARE, OTHER, SELFPAY ==
[2022-11-25 16:37] LABS: Abs Immature Grans 0.09 10^3/uL (0.0-0.06); Absolute Basophil Count 0.03 10^3/uL (0.0-0.2); Absolute Lymphocyte Count 1.66 10^3/uL (1.2-3.4); Absolute Monocyte Count 1.23 10^3/uL (0.1-0.8); Absolute Neutrophil Count 7.37 10^3/uL (1.2-6.7); Basophils % 0.3; Eosinophils % 1.9; HCT 33.8 % (36.0-46.0); HGB 10.4 g/dL (11.2-15.7); Immature Grans % 0.9; Lymphocytes % 15.7; MCH 27.7 pg (27.0-33.0); MCHC 30.8 % (32.0-36.0); MCV 90 fL (80-95); MPV 9.7 fL (8.0-11.0); Monocytes % 11.6; Neutrophils % 69.6; Platelet Count 286 10^3/uL (130-400); RBC 3.76 10^6/uL (3.93-5.22); RDW 15.9 % (11.7-14.6); WBC 10.58 10^3/uL (4.4-10.8)
[2022-11-25 16:53] LABS: ALT 69 U/L (14-59); AST 75 U/L (15-37); Alkaline Phosphatase 137 U/L (46-116); Anion Gap 11.2 mmol/L (3-11); BUN 27 mg/dL (7-18); Bilirubin, Total 0.5 mg/dL (0.2-1.0); CO2 24.8 mmol/L (21.0-32.0); Chloride 105 mmol/L (98-107); Estimated GFR 56.95 (mL/min/1.73m2); Glucose 120 mg/dL (74-106); Sodium 141 mmol/L (136-145); Total Protein 7.4 g/dL (6.4-8.2)
== END 2022-11-25 16:28 | disposition home or self-care (01) ==
LOC: LBN 16:27
PROVIDERS: PCP Nurse Practitioner Family; Visit Provider Nurse Practitioner Family
DX: E83.42 Hypomagnesemia; E87.0 Hyperosmolality and hypernatremia; K92.2 Gastrointestinal hemorrhage, unspecified
CPT/HCPCS: 80053; 85025

== ENCOUNTER 2022-12-08 20:03 | Emergency (ER) | payer MEDICARE, OTHER, SELFPAY ==
[2022-12-08] VITALS (11 sets, daily range): BP systolic 78–121; BP diastolic 30–71; PULSE 62–73; RESP 15–20; TEMP 36.1; O2SAT 93–97
--- NOTE | 2022-12-08 20:00 | RT.EKG_ITS ---
APPROVED REPORT Exam: Resting ECG Reason for Exam: possible stroke Patient Location: E HR:65 bpm ECG Measurements Heart Rate 65 AXIS AL 158 P 65 QRSd 79 QRS 37 QT 423 T 59 QTc 439 Conclusion Sinus rhythm...normal P axis, V-rate 60- 99 Probable left atrial enlargement...P >50mS, <-0.10mV V1
--- NOTE | 2022-12-08 20:15 | DI.CT_ITS ---
Exam(s) CT HEAD CERVICAL SPINE WO EXAM: CT HEAD CERVICAL SPINE WO CLINICAL HISTORY: fall, slurred speech. TECHNIQUE: Imaging Protocol: Axial computed tomography images with coronal and sagittal reformatted images were created and reviewed COMPARISON: CT CT HEAD WO from 10/06/2022 FINDINGS: The examination is limited due to patient motion artifact. CT Head: Ventricles and Extra axial spaces: Normal in size and morphology for the patient's age. Hemorrhage: None. Cerebral parenchyma: There is an old right frontal infarct. There are areas of decreased attenuation in the white matter most consistent with small vessel ischemic disease. There is no evidence of an acute infarct. Midline shift: None. Brainstem/Cerebellum: Normal. Calvarium: Normal. Visualized Paranasal sinuses/Mastoids: There are fluid level seen in the maxillary sinuses and spheno id sinuses bilaterally. The remaining visualized paranasal sinuses are clear as are the mastoid air cells. Soft Tissues: Unremarkable. CT Cervical Spine: Bones: No acute fracture or subluxation. Degenerative changes are seen in the cervical spine. There is straightening of the normal cervical lordosis. This may be due to muscle spasm or patient positio sonido. Soft Tissues: Unremarkable. Lung Apices: Emphysematous changes are seen in the lung apices. IMPRESSION: 1. No acute intracranial process. 2. Maxillary and sphenoid sinusitis. 3. No acute fracture or subluxation in the cervical spine. RADIATION DOSE DELIVERED: 1,266.9mGy.cm Total DLP DATA REPOSITORY: All CT scans at this facility are submitted to the National Radiology Data Registry (NRDR) Dose Index Registry (DIR) with the [employer] ([employer]). RADIATION OPTIMIZATION: All CT scans at this facility use at least one of these dose optimization te chniques: automated exposure control; mA and/or kV adjustment per patient size (includes targeted exa ms where dose is matched to clinical indication); or iterative reconstruction.
--- NOTE | 2022-12-08 20:18 | ED.GENADUL_ITS ---
Discharge Plan Disposition Patient Disposition: Home Condition: Poor Discharge Details Chief Complaint: CVA/TIA Clinical Impression: Weakness, Slurred speech Primary Care Provider: Samir Casillas ED Provider: Dejon Oliveros Home Meds and New Rx's Prescriptions: Continued pantoprazole 40 mg tablet,delayed release (DR/EC) 40 mg PO DAILY@0730 Qty: 90 3RF sertraline 100 mg tablet 100 mg PO DAILY Qty: 90 3RF albuterol sulfate 2.5 mg /3 mL (0.083 %) solution for nebulization 2.5 mg inhalation Q4H PRN (Reason: shortness of breath or wheezing) Qty: 180 0RF Centrum Silver Women 8 mg iron-400 mcg-300 mcg tablet 1 tab PO DAILY ketoconazole 2 % shampoo 1 applic topical .Twice a week PRN (Reason: seborrheic derm) Qty: 120 0RF Rx Instructions: Apply to wet scalp twice a week, leave on for 3-5 minutes, then rinse well. use for 2-4 weeks rosuvastatin 40 mg tablet 40 mg PO DAILY Qty: 90 3RF Incruse Ellipta 62.5 mcg/actuation blister with device 1 inh inhalation DAILY Qty: 30 12RF potassium chloride [K-Tab] 20 mEq tablet extended release 20 meq PO BID Qty: 180 4RF mometasone 0.1 % Cream 0 g topical BID Qty: 0 0RF budesonide-formoterol [Symbicort] 80-4.5 mcg/actuation Hfa Aerosol Inhaler 2 puff inhalation BID Qty: 0 0RF clopidogrel 75 mg Tablet 75 mg PO DAILY Qty: 0 0RF docusate sodium [Colace] 100 mg Capsule 100 mg PO TID PRN PRNQty: 0 0RF Inhaler, Assist Devices [Pocket Chamber] 1 ea miscellaneous DIRECTED Qty: 0 0RF tizanidine 4 mg tablet 4 mg PO BID Patient Comments: TAKE ONE TABLET BY MOUTH TWICE A DAY fluticasone propionate [Flonase Allergy Relief] 50 mcg/actuation spray ,suspension 1 spray intranasal DAILY Rx Instructions: administer into each nostril aspirin 81 mg tablet,delayed release (DR/EC) 81 mg PO DAILY Patient Comments: TAKE ONE TABLET BY MOUTH EVERY DAY albuterol sulfate 90 mcg/actuation HFA aerosol inhaler 2 puff inhalation 6XD PRNQty: 8.5 0RF Held lisinopril-hydrochlorothiazide 20-25 mg tablet 1 tab PO DAILY Qty: 90 1RF Hold Instructions: hold until you follow up with your primary care provider Discharge Instructions Additional Instructions: Your cat scan and blood work did not show any new significant abnormalities and you did not want to stay for observation Follow up with your primary care provider as soon as possible hold your lisinopril/hydrochlorothiazide until you follow up with your primary care provider if you feel more ill, have worsening weakness or new symptoms such as difficulty breathing return to the emergency department Medical Decision Making 82 yo female with prior cva's with left sided weakness, most recent was in October of this year and then had a gi bleed in November and had her asa and plavix held, 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 She arrives caox4 with clear speech. She does have left lower facial droop on exam which she states she thinks is new for her and on review of prior exams I can't seen any documentation of her having a facial droop noted. She has chronic left arm and leg weakness from her prior cva's. She states she had a fall last while using her walker because she didn't lift her walker high enough to clear the threshold and fell back, no loc. She has no chest pain, no abdominal pain, denies dyspnea or fevers. NIH on arrival is 3 (1 for facial palsy, 2 for left arm motor drift, 1 for left leg motor drift). Concern for recurrent cva vs tia, since she had a cva in October not a lytic candidate, will proceed with ct head and c spine given she had a fall this past and also obtain cbc, cmp, and ua and monitor. labs show mild carlos eduardo but looking back seems to range from 1.3-1.7, hemoglobin 7.3 not at the point of transfusion at this time. She is hemodynamically stable, speaking clearly. Facial droop has improved. She is still caox4 and has capacity to make her own decisions. She has no desire to be hospitalized. I did advise the safest disposition for her would be to be observed in the hospital and potentially have an MRI in the morning and trend her cbc. She still declines to be admitted. She understands the risks of leaving including worsening anemia and possible worsening cva and potential to detriorate further including becoming permanently disabled and possible . She understands these risks and is willing to accept these risks. I spoke with her daughter at the bedside and her daughter in [place] who is her dpoa and advised that is is not unlike her to want to leave and she can't get her to change her mind and accepts whatever she decides. Pt was instructed to f/u with her pcp allison, return precautions given pt able to ambulate unassisted with her walker at her baseline and has no symptoms walking such as weakness or lightheadedness. Pt still declines to be admitted for observation. Differential Diagnosis Differential Diagnosis: cva, tia, electrolyte abnormality Medical Records Medical records reviewed: Yes I reviewed the patient's medical records. Imaging Data Radiologic Study: Attestation: I personally reviewed and interpreted this imaging study as follows: Imaging: CT Scan Radiologist's impression: IMPRESSION: 1. No acute intracranial abnormality. 2. Completed right frontoparietal infarct. 3. Maxillary and sphenoid sinusitis. IMPRESSION: 1. No acute fracture or subluxation. 2. Straightening of lordosis. Lab Data Lab results reviewed: Yes I reviewed the patient's lab results. ECG Data Attestation: I personally reviewed and interpreted this ECG (s) as follows: Prior ECG tracings: available for review Interpretation: sinus, rate of 65, pr 158, qtc 423 no ischemic findings HPI General Mode of arrival: EMS . Date/Time Provider Initiated Documentation: 12/08/22 20:08 . Limitations to Documentation: no limitations . Information obtained by: patient . History of Present Illness 82 year old F presents to the emergency department with the chief complaint of slurred speech, described as moderate, Patient started experiencing this hour(s) (2) and it has been now resolved. No relieving factors improve symptom(s), No exacerbating factors reported . Patient did receive the following treatments prior to arrival, none Related Data Home Medications Medication Instructions Recorded Confirmed multivit with 1 tab PO DAILY 07/18/20 11/27/22 hujiuucy-tqde-KH-lutein 8 mg iron-400 mcg-300 mcg tablet (Centrum Silver Women) lisinopril 20 1 tab PO DAILY #90 tabs 05/11/22 11/27/22 mg-hydrochlorothiazide 25 mg tablet ketoconazole 2 % shampoo 1 applic topical .Twice a week PRN 06/21/22 11/27/22 seborrheic derm #120 mL aspirin 81 mg tablet,delayed 81 mg PO DAILY 09/23/22 11/27/22 release fluticasone propionate 50 1 spray intranasal DAILY 09/23/22 11/27/22 mcg/actuation nasal spray,suspension (Flonase Allergy Relief) tizanidine 4 mg tablet 4 mg PO BID 09/23/22 11/27/22 albuterol sulfate 90 mcg/actuation 2 puff inhalation 6XD PRN #8.5 09/27/22 11/27/22 aerosol inhaler grams umeclidinium 62.5 mcg/actuation 1 inh inhalation DAILY #30 ea 10/06/22 11/27/22 blister powder for inhalation (Incruse Ellipta) Inhaler, Assist Devices [Pocket 1 ea miscellaneous DIRECTED ##0 10/13/22 11/27/22 Chamber] budesonide-formoterol HFA 80 2 puff inhalation BID #0 grams 10/13/22 11/27/22 mcg-4.5 mcg/actuation aerosol inhaler (Symbicort) clopidogrel 75 mg tablet 75 mg PO DAILY #0 tabs 10/13/22 11/27/22 docusate sodium 100 mg capsule 100 mg PO TID PRN PRN #0 caps 10/13/22 11/27/22 (Colace) mometasone 0.1 % topical cream 0 g topical BID #0 grams 10/13/22 11/27/22 albuterol sulfate 2.5 mg/3 mL 2.5 mg (3 mL) inhalation Q4H PRN 11/27/22 11/27/22 (0.083 %) solution for nebulization shortness of breath or wheezing #180 mL pantoprazole 40 mg tablet,delayed 40 mg PO DAILY@0730 #90 tabs 11/27/22 11/27/22 release rosuvastatin 40 mg tablet 40 mg PO DAILY #90 tabs 11/27/22 11/27/22 sertraline 100 mg tablet 100 mg PO DAILY #90 tabs 11/27/22 11/27/22 potassium chloride 20 mEq 20 meq PO BID #180 tabs 12/06/22 tablet,extended release (K-Tab) Previous Rx's Medication Instructions Recorded lisinopril 20 1 tab PO DAILY #90 tabs 05/11/22 mg-hydrochlorothiazide 25 mg tablet ketoconazole 2 % shampoo 1 applic topical .Twice a week PRN 06/21/22 seborrheic derm #120 mL albuterol sulfate 90 mcg/actuation 2 puff inhalation 6XD PRN #8.5 09/27/22 aerosol inhaler grams umeclidinium 62.5 mcg/actuation 1 inh inhalation DAILY #30 ea 10/06/22 blister powder for inhalation (Incruse Ellipta) Inhaler, Assist Devices [Pocket 1 ea miscellaneous DIRECTED ##0 10/13/22 Chamber] budesonide-formoterol HFA 80 2 puff inhalation BID #0 grams 10/13/22 mcg-4.5 mcg/actuation aerosol inhaler (Symbicort) clopidogrel 75 mg tablet 75 mg PO DAILY #0 tabs 10/13/22 docusate sodium 100 mg capsule 100 mg PO TID PRN PRN #0 caps 10/13/22 (Colace) mometasone 0.1 % topical cream 0 g topical BID #0 grams 10/13/22 albuterol sulfate 2.5 mg/3 mL 2.5 mg (3 mL) inhalation Q4H PRN 11/27/22 (0.083 %) solution for nebulization shortness of breath or wheezing #180 mL pantoprazole 40 mg tablet,delayed 40 mg PO DAILY@0730 #90 tabs 11/27/22 release rosuvastatin 40 mg tablet 40 mg PO DAILY #90 tabs 11/27/22 sertraline 100 mg tablet 100 mg PO DAILY #90 tabs 11/27/22 potassium chloride 20 mEq 20 meq PO BID #180 tabs 12/06/22 tablet,extended release (K-Tab) Allergies Allergy/AdvReac Type Severity Reaction Status Date / Time baclofen AdvReac Intermediate mental Verified 10/06/22 14:13 status changes General Stated Complaint: CVA/TIA IFTIKHAR: 3 Review of Systems All systems reviewed & are unremarkable except as noted in HPI and below Constitutional Constitutional: Denies chills and Denies fever(s) Eyes Eyes: Denies loss of vision Cardiovascular Cardiovascular: Denies chest pain and Denies dyspnea Respiratory Respiratory: Denies cough and Denies dyspnea Gastrointestinal Gastrointestinal: Denies abdominal pain, Denies nausea and Denies vomiting Genitourinary Genitourinary: Denies dysuria Musculoskeletal Musculoskeletal: Denies joint swelling Neurologic Neurologic: Denies loss of vision Psychiatric Psychiatric: Denies depression PFSH All Active Problems (Updated 12/08/22 @ 21:44 by Dejon Oliveros MD) Chronic obstructive lung disease (Chronic) PFT'S 2009 FEV 1.15=59% continues to smoke Constipation (Chronic 11/14/17) Essential hypertension (Chronic 03/30/13) Lumbago (Chronic 05/10/13) Peripheral vascular disease (Acute) Jul [place] [facility] [place] [facility] [place] Polyp of colon (Acute) tubular adenoma Shoulder arthralgia (Chronic) Carotid stenosis, left (Acute) 50-69% stenosis 04/2022; complete obstruction right internal carotid. Grief reaction (Chronic) Spouse 08/13/21 passed CVA (cerebral vascular accident) (Chronic) Neuro est. between 04/2020-11/2021 Counseling regarding advanced directives and goals of care (Acute) Dilated bile duct (Acute ~02/2022) s/p ERCP [facility], 10mm dilation, no masses. Due repeat MRI in 10/2022. 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) Pulmonary hypertension (Acute) Pulmonary nodules/lesions, multiple (Acute) Anemia (Chronic) Pleural effusion (Acute) Pleural effusion (Acute) Congestive heart failure (Chronic) Weakness (Acute) Slurred speech (Acute) Medical History Anxiety about health Disorder of ear, left Diverticulitis of colon H/O SIGMOID COLECTOMY Hand pain, left Hyperlipidemia Perichondritis Seizures Smoker (10/19/16) Surgical History Extraction of cataract B/L 04/2013 Ligation of fallopian tube Rotator Cuff Repair RIGHT S/P partial colectomy Trigger Finger release WRIST/THUMB SURGERY LEFT THUMB LEFT WRIST RIGHT THUMB Family History Mother Diabetes Essential hypertension Stroke Father , 55 Heart disease Stroke Brother , 71 Complications from surgery No problems noted. Son No problems noted. Son No problems noted. Daughter No problems noted. Daughter No problems noted. Social History Smoking/Tobacco Use Status: Current every day Tobacco Type: cigarettes Smoking packs per day: 0.5 Smoking cigarettes per day: 10.0 Years smoked: 63 Smoking pack-years: 31.50 Tobacco: How many years used: 63 Quit status: considering quitting Second Hand Exposure: Yes Smoking risk assessment performed?: Yes Alcohol Intake: never Drug use: Rarely Counseling given: No Counseling provided: none Caregiver/Support person: No Household members: none Housing: house Number of Children: 4 Communication Needs: Hard of Hearing Do you need help understanding health information?: Rarely Pets and animals: Yes Pets and animals: dog(s) Sexually active: No Do you think of yourself as: straight/heterosexual Current gender identity: female What is your relationship status?: How often do you talk on the phone with friends or family?: three or more times per week Do you belong to any clubs or organized social groups?: no Panel score (0-1 are the most socially isolated patients): 1 What type of physical activity do you participate in: none Darlene/Amish: No preference Special darlene needs: No Seatbelt use: always Helmet use: No Drive intox or ride w/intox sprinkling truck driver: No Do you feel safe at home: Yes Do you feel safe in your relationship?: Yes Exam Const General: no acute distress Orientation: alert HENMT Head: normal to inspection Ears: external ears normal General nose exam: external nose normal Mouth: moist mucous membranes Eyes General: appearance normal, both eyes and all related structures Neck Neck: normal visual inspection Resp Effort & Inspection: normal respiratory effort and able to speak in complete sentences Cardio Jugular venous pressure: no JVD Rate: regular rate Heart Sounds: no murmurs GI Palpation: soft Skin General skin exam: no rashes or lesions noted Neuro General: patient alert and patient oriented x3 Extrem General: normal to inspection Psych Mental Status: mental status grossly normal Course Vital Signs Vital signs: Vital Signs Temperature 36.1 C L 12/08/22 20:03 Pulse 67 12/08/22 20:03 Respiratory Rate 20 12/08/22 20:03 Blood Pressure 121/31 L 12/08/22 20:03 Pulse Oximetry 93 12/08/22 20:03 Temperature 36.1 C L 12/08/22 20:03 Temperature Source Temporal Artery Scan 12/08/22 20:03 Pulse 67 12/08/22 20:03 Respiratory Rate 20 12/08/22 20:03 Blood Pressure 121/31 L 12/08/22 20:03 Blood Pressure Position Sitting 12/08/22 20:03 Pulse Oximetry 93 12/08/22 20:03 Oxygen Delivery Method Room Air 12/08/22 20:03 Oxygen Flow Rate 0 12/08/22 20:03
[2022-12-08 20:42] LABS: Abs Immature Grans 0.04 10^3/uL (0.0-0.06); Absolute Basophil Count 0.02 10^3/uL (0.0-0.2); Absolute Eosinophil Count 0.15 10^3/uL (0.0-0.7); Absolute Lymphocyte Count 1.81 10^3/uL (1.2-3.4); Absolute Monocyte Count 1.12 10^3/uL (0.1-0.8); Basophils % 0.2; Eosinophils % 1.5; HCT 24.5 % (36.0-46.0); HGB 7.3 g/dL (11.2-15.7); Immature Grans % 0.4; Lymphocytes % 18.2; MCHC 29.8 % (32.0-36.0); MCV 94 fL (80-95); MPV 10.3 fL (8.0-11.0); Monocytes % 11.3; Neutrophils % 68.4; Platelet Count 234 10^3/uL (130-400); RBC 2.61 10^6/uL (3.93-5.22); RDW-SD 61.6 fL; WBC 9.94 10^3/uL (4.4-10.8)
--- NOTE | 2022-12-08 21:00 | DI.VRAD_ITS ---
PROCEDURE INFORMATION: Exam: CT Head Without Contrast Exam date and time: 12/08/2022 8:29 PM Age: 82 years old Clinical indication: Stroke-like symptoms; Left facial droop TECHNIQUE: Imaging protocol: Computed tomography of the head without contrast. Other technique: STROKE PROTOCOL was implemented. COMPARISON: MR BRAIN WO 10/07/2022 11:39 AM FINDINGS: Brain: Completed right frontal parietal infarct. There is moderate diffuse cerebral atrophy present, consistent with this patient's age. No hemorrhage. There is mild diffuse heterogeneity of the white matter attenuation, this change is nonspecific but is likely secondary to chronic ischemia within microvascular distributions. No mass effect. Cerebral ventricles: Normal in configuration. Compensatory dilatation. Paranasal sinuses: Air-fluid levels in maxillary sinuses. Secretions in both sphenoid sinuses. Mastoid air cells: Visualized mastoid air cells are well aerated. Bones/joints: Unremarkable. No acute fracture. Soft tissues: Unremarkable. IMPRESSION: 1. No acute intracranial abnormality. 2. Completed right frontoparietal infarct. 3. Maxillary and sphenoid sinusitis. ASSESSMENT: ASPECTS (Everest Stroke Program Early CT Score) is 10. PROCEDURE INFORMATION: Exam: CT Cervical Spine Without Contrast Exam date and time: 12/08/2022 8:29 PM Age: 82 years old Clinical indication: Stroke-like symptoms; Left facial droop TECHNIQUE: Imaging protocol: Computed tomography of the cervical spine without contrast. COMPARISON: MR BRAIN WO 10/07/2022 11:39 AM FINDINGS: Bones/joints: No acute fracture. Normal alignment. Minimal multilevel hypertrophic endplate degenerative changes. Straightening of lordosis. No significant disc bulge or herniation. No severe spinal canal stenosis. No significant neural foraminal narrowing. Lungs: Lung apices are normal. Soft tissues: Unremarkable. IMPRESSION: 1. No acute fracture or subluxation. 2. Straightening of lordosis. THIS REPORT CONTAINS FINDINGS THAT MAY BE CRITICAL TO PATIENT CARE. The findings were verbally communicated via telephone conference with Dr. Oliveros, 12/08/2022 8:58 PM EDT. The findings were acknowledged and understood. Dictated and Authenticated by: Emmanuel Hartman MD. Ordering:CARA Ashford MD
[2022-12-08 21:04] LABS: PTT Activated 21.7 sec (21.5-31.9); Prothrombin Time 10.4 sec (9.3-11.0)
[2022-12-08 21:12] LABS: ALT 162 U/L (14-59); AST 131 U/L (15-37); Albumin 3.2 g/dL (3.4-5.0); Alkaline Phosphatase 167 U/L (46-116); Anion Gap 8.5 mmol/L (3-11); BUN 51 mg/dL (7-18); Bilirubin, Total 0.3 mg/dL (0.2-1.0); CO2 25.5 mmol/L (21.0-32.0); CREATININE 1.6 mg/dL (0.55-1.02); Calcium 9.5 mg/dL (8.5-10.1); Chloride 105 mmol/L (98-107); Glucose 126 mg/dL (74-106); Sodium 139 mmol/L (136-145); TSH (W/Ref FT4) 2.89 uIU/mL (0.36-3.74); Total Protein 6.3 g/dL (6.4-8.2)
== END 2022-12-08 22:05 | disposition home or self-care (01) ==
LOC: ER 21:59
PROVIDERS: Emergency Provider Emergency Medicine; PCP Nurse Practitioner Family
DX: R53.1 Weakness (principal); R47.81 Slurred speech; Z86.73 Personal history of transient ischemic attack (TIA), and cerebral infarction without residual deficits; R29.810 Facial weakness; J44.9 Chronic obstructive pulmonary disease, unspecified; F17.210 Nicotine dependence, cigarettes, uncomplicated; I50.9 Heart failure, unspecified
CPT/HCPCS: 80053; 93005; 99284; 70450; 72125; 83735; 84443; 85025; 85610; 85730; 93010

== ENCOUNTER 2022-12-09 02:02 | Outpatient (CLI) | payer MEDICARE, OTHER, SELFPAY ==
--- NOTE | 2022-12-09 08:45 | DI.MRI_ITS ---
Exam(s) MR ABDOMEN WO EXAM: MR ABDOMEN WO CLINICAL HISTORY: DILATED BILE DUCT,K83.8 TECHNIQUE: Multiplanar multisequence MRI of the Abdomen was performed. COMPARISON: MR MR ABDOMEN WO from 03/01/2022 FINDINGS: Liver: Unremarkable. Pancreas: Unremarkable. Gallbladder and Bile Ducts: There is no change in size of the common duct which measures 9.5 mm. No definite filling defects are seen. The gallbladder is unremarkable. The pancreatic duct is unremark able. No significant intrahepatic biliary ductal dilatation is seen. Adrenals: Unremarkable. Kidneys: There are few tiny cysts seen on the kidneys. No follow-up is recommended. The kidneys are otherwise unremarkable. Spleen: Unremarkable. Bowel: Unremarkable. Aorta: Unremarkable. Soft Tissues: There are postsurgical changes in the anterior abdominal wall. Bone: Unremarkable. Lymph Nodes: Unremarkable. IMPRESSION: Stable extrahepatic biliary ductal dilatation up to 9.5 mm. No gallstones or intrahepatic biliary du ctal dilatation. DATA REPOSITORY:
== END 2022-12-09 02:22 ==
PROVIDERS: PCP Nurse Practitioner Family; Visit Provider Family Medicine
DX: K83.8 Other specified diseases of biliary tract (principal)
CPT/HCPCS: 74181

== ENCOUNTER 2022-12-20 10:47 | Inpatient (IN) | payer MEDICARE, OTHER, SELFPAY ==
[2022-12-20] VITALS (64 sets, daily range): BP systolic 88–133; BP diastolic 34–87; PULSE 78–107; RESP 4–29; TEMP 35.9–37.2; O2SAT 89–99
--- NOTE | 2022-12-20 10:30 | RT.EKG_ITS ---
APPROVED REPORT Exam: Resting ECG Reason for Exam: sob Patient Location: E HR:90 bpm ECG Measurements Heart Rate 90 AXIS MI 128 P 109 QRSd 77 QRS 42 QT 363 T 80 QTc 444 Conclusion Sinus rhythm...normal P axis, V-rate 60- 99
--- NOTE | 2022-12-20 11:00 | DI.RAD_ITS ---
Exam(s) XR SACRUM COCCYX EXAM: XR SACRUM COCCYX CLINICAL HISTORY: pain s/p fall. TECHNIQUE: 2D digital imaging was performed. COMPARISON: No exams were available for comparison FINDINGS: BONES: No acute fracture is present. No bony destructive lesion is seen. Degenerative disc changes noted at L4-5 and L5-S1. JOINTS: No dislocation present. Hip joint spaces are maintained. No SI joint widening. SOFT TISSUE: Left iliac artery stents. Left lower quadrant suture material. IMPRESSION: No acute abnormality. DATA REPOSITORY: RADIATION DOSE DELIVERED:
--- NOTE | 2022-12-20 11:12 | ED.GENADUL_ITS ---
Discharge Plan Disposition Patient Disposition: Admit to [facility] Condition: Serious Discharge Details Chief Complaint: SOB Clinical Impression: Anemia, Shortness of breath Primary Care Provider: Samir Casillas ED Provider: Dejon Oliveros Home Meds and New Rx's Prescriptions: No Action lisinopril-hydrochlorothiazide 20-25 mg tablet 1 tab PO DAILY Qty: 90 1RF Hold Instructions: hold until you follow up with your primary care provider pantoprazole 40 mg tablet,delayed release (DR/EC) 40 mg PO DAILY@0730 Qty: 90 3RF sertraline 100 mg tablet 100 mg PO DAILY Qty: 90 3RF albuterol sulfate 2.5 mg /3 mL (0.083 %) solution for nebulization 2.5 mg inhalation Q4H PRN (Reason: shortness of breath or wheezing) Qty: 180 0RF Centrum Silver Women 8 mg iron-400 mcg-300 mcg tablet 1 tab PO DAILY ketoconazole 2 % shampoo 1 applic topical .Twice a week PRN (Reason: seborrheic derm) Qty: 120 0RF Rx Instructions: Apply to wet scalp twice a week, leave on for 3-5 minutes, then rinse well. use for 2-4 weeks rosuvastatin 40 mg tablet 40 mg PO DAILY Qty: 90 3RF Incruse Ellipta 62.5 mcg/actuation blister with device 1 inh inhalation DAILY Qty: 30 12RF potassium chloride [K-Tab] 20 mEq tablet extended release 20 meq PO BID Qty: 180 4RF clopidogrel 75 mg tablet 75 mg PO DAILY Qty: 90 3RF mometasone 0.1 % Cream 0 g topical BID Qty: 0 0RF budesonide-formoterol [Symbicort] 80-4.5 mcg/actuation Hfa Aerosol Inhaler 2 puff inhalation BID Qty: 0 0RF docusate sodium [Colace] 100 mg Capsule 100 mg PO TID PRN PRNQty: 0 0RF Inhaler, Assist Devices [Pocket Chamber] 1 ea miscellaneous DIRECTED Qty: 0 0RF tizanidine 4 mg tablet 4 mg PO BID Patient Comments: TAKE ONE TABLET BY MOUTH TWICE A DAY aspirin 81 mg tablet,delayed release (DR/EC) 81 mg PO DAILY Patient Comments: TAKE ONE TABLET BY MOUTH EVERY DAY albuterol sulfate 90 mcg/actuation HFA aerosol inhaler 2 puff inhalation 6XD PRNQty: 8.5 0RF Medical Decision Making 82 yo with COPD, CHF, pulmonary hypertension, cva, comes in with cc of shortness of breath and cough worsening over the last 2 days. She denies chest pressure, headaches, neck pain. She states last night she was sitting in a chair at her house and had an episode where she lost consciousness and slid off her chair and landed on her buttocks and has coccyx pain. She called ems today and was given a neb and states she feels mildly better. She is hypoxic to 89% on room air, increases to the mid 90's on 2L NC. She does have wheezing bilaterally in the apices and diminished breath sounds at the bases bilterally. No signs of trauma to the head, no c spine tenderness. No visible or palpable deformities of the coccyx but does have tenderness in this area, no tenderness in l or t spine. Given her primary symptoms of syncope, sob and cough will proceed with ekg/troponin, cbc, cmp, treat with a duoneb and solumedrol, and obtain cxr along with coccyx xray. pt anemic again with hemoglobin 6.6, similar to when she was admitted in November with negative endoscopy in that visit. She consents to admission, will discuss with hospitalist for copd exacerbation and again likely gi bleed with anemia Differential Diagnosis Differential Diagnosis: pneumonia, covid, asthma, chf , copd Medical Records Medical records reviewed: Yes I reviewed the patient's medical records. Imaging Data Radiologic Study: Attestation: I personally reviewed and interpreted this imaging study as follows: Imaging: X-Ray Radiologist's impression: no acute findings cxr Radiologic Study #2: Attestation: I personally reviewed and interpreted this imaging study as follows: Imaging: X-Ray Radiologist's impression: no acute findings coccyx xray Lab Data Lab results reviewed: Yes I reviewed the patient's lab results. ECG Data Attestation: I personally reviewed and interpreted this ECG (s) as follows: Prior ECG tracings: available for review Interpretation: sinus rhythm, rate of 90, pr 128, no acute ischemic findings HPI General Mode of arrival: EMS . Date/Time Provider Initiated Documentation: 12/20/22 10:56 . Limitations to Documentation: no limitations . Information obtained by: patient . History of Present Illness 82 year old F presents to the emergency department with the chief complaint of shortness of breath, described as moderate, Patient reports no radiation. Patient started experiencing this day(s) (2) and it has been constant. No relieving factors improve symptom(s), No exacerbating factors reported . Patient notes cough and weakness. Patient did receive the following treatments prior to arrival, none Related Data Home Medications Medication Instructions Recorded Confirmed multivit with 1 tab PO DAILY 07/18/20 12/20/22 ojruzfil-ycaa-UL-lutein 8 mg iron-400 mcg-300 mcg tablet (Centrum Silver Women) lisinopril 20 1 tab PO DAILY #90 tabs 05/11/22 12/20/22 mg-hydrochlorothiazide 25 mg tablet ketoconazole 2 % shampoo 1 applic topical .Twice a week PRN 06/21/22 12/20/22 seborrheic derm #120 mL aspirin 81 mg tablet,delayed 81 mg PO DAILY 09/23/22 12/20/22 release tizanidine 4 mg tablet 4 mg PO BID 09/23/22 12/20/22 albuterol sulfate 90 mcg/actuation 2 puff inhalation 6XD PRN #8.5 09/27/22 12/20/22 aerosol inhaler grams umeclidinium 62.5 mcg/actuation 1 inh inhalation DAILY #30 ea 10/06/22 12/20/22 blister powder for inhalation (Incruse Ellipta) Inhaler, Assist Devices [Pocket 1 ea miscellaneous DIRECTED ##0 10/13/22 12/20/22 Chamber] budesonide-formoterol HFA 80 2 puff inhalation BID #0 grams 10/13/22 12/20/22 mcg-4.5 mcg/actuation aerosol inhaler (Symbicort) docusate sodium 100 mg capsule 100 mg PO TID PRN PRN #0 caps 10/13/22 12/20/22 (Colace) mometasone 0.1 % topical cream 0 g topical BID #0 grams 10/13/22 12/20/22 albuterol sulfate 2.5 mg/3 mL 2.5 mg (3 mL) inhalation Q4H PRN 11/27/22 12/20/22 (0.083 %) solution for nebulization shortness of breath or wheezing #180 mL pantoprazole 40 mg tablet,delayed 40 mg PO DAILY@0730 #90 tabs 11/27/22 12/20/22 release rosuvastatin 40 mg tablet 40 mg PO DAILY #90 tabs 11/27/22 12/20/22 sertraline 100 mg tablet 100 mg PO DAILY #90 tabs 11/27/22 12/20/22 potassium chloride 20 mEq 20 meq PO BID #180 tabs 12/06/22 12/20/22 tablet,extended release (K-Tab) clopidogrel 75 mg tablet 75 mg PO DAILY #90 tabs 12/15/22 12/20/22 Previous Rx's Medication Instructions Recorded lisinopril 20 1 tab PO DAILY #90 tabs 05/11/22 mg-hydrochlorothiazide 25 mg tablet ketoconazole 2 % shampoo 1 applic topical .Twice a week PRN 06/21/22 seborrheic derm #120 mL albuterol sulfate 90 mcg/actuation 2 puff inhalation 6XD PRN #8.5 09/27/22 aerosol inhaler grams umeclidinium 62.5 mcg/actuation 1 inh inhalation DAILY #30 ea 10/06/22 blister powder for inhalation (Incruse Ellipta) Inhaler, Assist Devices [Pocket 1 ea miscellaneous DIRECTED ##0 10/13/22 Chamber] budesonide-formoterol HFA 80 2 puff inhalation BID #0 grams 10/13/22 mcg-4.5 mcg/actuation aerosol inhaler (Symbicort) docusate sodium 100 mg capsule 100 mg PO TID PRN PRN #0 caps 10/13/22 (Colace) mometasone 0.1 % topical cream 0 g topical BID #0 grams 10/13/22 albuterol sulfate 2.5 mg/3 mL 2.5 mg (3 mL) inhalation Q4H PRN 11/27/22 (0.083 %) solution for nebulization shortness of breath or wheezing #180 mL pantoprazole 40 mg tablet,delayed 40 mg PO DAILY@0730 #90 tabs 11/27/22 release rosuvastatin 40 mg tablet 40 mg PO DAILY #90 tabs 11/27/22 sertraline 100 mg tablet 100 mg PO DAILY #90 tabs 11/27/22 potassium chloride 20 mEq 20 meq PO BID #180 tabs 12/06/22 tablet,extended release (K-Tab) clopidogrel 75 mg tablet 75 mg PO DAILY #90 tabs 12/15/22 Allergies Allergy/AdvReac Type Severity Reaction Status Date / Time baclofen AdvReac Intermediate mental Verified 12/20/22 10:56 status changes General Stated Complaint: SOB IFTIKHRA: 3 Review of Systems All systems reviewed & are unremarkable except as noted in HPI and below Constitutional Constitutional: Denies chills and Denies fever(s) Cardiovascular Cardiovascular: Denies chest pain and Reports dyspnea Respiratory Respiratory: Reports cough and Reports dyspnea Gastrointestinal Gastrointestinal: Denies abdominal pain, Denies nausea and Denies vomiting Musculoskeletal Musculoskeletal: Denies joint swelling Integumentary/Breasts Skin/Breast: Denies rash PFSH All Active Problems (Updated 12/20/22 @ 13:44 by Dejon Oliveros MD) Chronic obstructive lung disease (Acute) PFT'S 2009 FEV 1.15=59% continues to smoke Constipation (Chronic 11/14/17) Essential hypertension (Chronic 03/30/13) Lumbago (Chronic 05/10/13) Peripheral vascular disease (Acute) Jul 2014 [facility] [place] aorto bifem bypass LEFT ILIAC STENT [facility] [place] 03/2010 Polyp of colon (Acute) tubular adenoma Shoulder arthralgia (Chronic) Carotid stenosis, left (Acute) 50-69% stenosis 04/2022; complete obstruction right internal carotid. Grief reaction (Chronic) Spouse 08/13/21 passed CVA (cerebral vascular accident) (Chronic) Neuro est. between 04/2020-11/2021 Counseling regarding advanced directives and goals of care (Acute) Dilated bile duct (Acute ~02/2022) s/p ERCP [facility], 10mm dilation, no masses. Due repeat MRI in 10/2022. 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) Pulmonary hypertension (Acute) Pulmonary nodules/lesions, multiple (Acute) Anemia (Chronic) Pleural effusion (Acute) Pleural effusion (Acute) Congestive heart failure (Chronic) Weakness (Acute) Slurred speech (Acute) Shortness of breath (Acute) Medical History Anxiety about health Disorder of ear, left Diverticulitis of colon H/O SIGMOID COLECTOMY Hand pain, left Hyperlipidemia Perichondritis Seizures Smoker (10/19/16) Surgical History Extraction of cataract B/L 04/2013 Ligation of fallopian tube Rotator Cuff Repair RIGHT S/P partial colectomy Trigger Finger release WRIST/THUMB SURGERY LEFT THUMB LEFT WRIST RIGHT THUMB Family History Mother Diabetes Essential hypertension Stroke Father , 55 Heart disease Stroke Brother , 71 Complications from surgery No problems noted. Son No problems noted. Son No problems noted. Daughter No problems noted. Daughter No problems noted. Social History Smoking/Tobacco Use Status: Current every day Tobacco Type: cigarettes Smoking packs per day: 0.5 Smoking cigarettes per day: 10.0 Years smoked: 63 Smoking pack-years: 31.50 Tobacco: How many years used: 63 Quit status: considering quitting Second Hand Exposure: Yes Smoking risk assessment performed?: Yes Alcohol Intake: never Drug use: Rarely Counseling given: No Counseling provided: none Caregiver/Support person: No Household members: none Housing: house Number of Children: 4 Communication Needs: Hard of Hearing Do you need help understanding health information?: Rarely Pets and animals: Yes Pets and animals: dog(s) Sexually active: No Do you think of yourself as: straight/heterosexual Current gender identity: female What is your relationship status?: How often do you talk on the phone with friends or family?: three or more times per week Do you belong to any clubs or organized social groups?: no Panel score (0-1 are the most socially isolated patients): 1 What type of physical activity do you participate in: none Darlene/Anabaptism: No preference Special darlene needs: No Seatbelt use: always Helmet use: No Drive intox or ride w/intox driver/guide: No Do you feel safe at home: Yes Do you feel safe in your relationship?: Yes Exam Const General: no acute distress Orientation: alert HENMT Head: normal to inspection Ears: external ears normal General nose exam: external nose normal Mouth: moist mucous membranes Eyes General: appearance normal, both eyes and all related structures Neck Neck: normal visual inspection Resp Auscultation: wheezes Cardio Jugular venous pressure: no JVD Rate: regular rate Skin General skin exam: no rashes or lesions noted Neuro General: patient alert and patient oriented x3 Extrem General: normal to inspection Psych Mental Status: mental status grossly normal Course Vital Signs Vital signs: Vital Signs Temperature 37.0 C 12/20/22 10:49 Pulse 101 H 12/20/22 10:49 Respiratory Rate 20 12/20/22 10:49 Blood Pressure 133/42 L 12/20/22 10:49 Pulse Oximetry 89 L 12/20/22 10:49 Temperature 37.0 C 12/20/22 10:49 Temperature Source Oral 12/20/22 10:49 Pulse 101 H 12/20/22 10:49 Respiratory Rate 18 12/20/22 11:05 Respiratory Effort Short of Breath 12/20/22 11:05 Blood Pressure 133/42 L 12/20/22 10:49 Blood Pressure Position Sitting 12/20/22 10:49 Pulse Oximetry 89 L 12/20/22 10:49 Oxygen Delivery Method Room Air 12/20/22 10:49 Oxygen Flow Rate 0 12/20/22 10:49 Pain Level 3 12/20/22 10:49 Lab/Test Results Lab/Test Results: 12/20/22 10:42 Blood Blood Culture - Pending 12/20/22 10:42 Blood Blood Culture - Pending
--- NOTE | 2022-12-20 11:15 | DI.RAD_ITS ---
Exam(s) XR CHEST 2V PA LATERAL EXAM: XR CHEST 2V PA LATERAL CLINICAL HISTORY: cough TECHNIQUE: 2D digital imaging was performed. COMPARISON: No exams were available for comparison FINDINGS: HEART: Normal size. Aorta: Not dilated. PULMONARY VASCULATURE: Normal. LUNGS: Clear. PLEURAL SPACE: No pleural effusion or pneumothorax. BONE:Unremarkable for age. IMPRESSION: No acute abnormality. DATA REPOSITORY: RADIATION DOSE DELIVERED:
[2022-12-20 11:27] LABS: BE (Venous) -2 mmol/L (-2-3); HCO3 (Venous) 23 mmol/L (23-28); O2 Sat (Venous) 36 %; TCO2 (Venous) 23 mmol/L (24-29); pCO2 (Venous) 37 mmHg (41-51); pH (Venous) 7.41 (7.31-7.41); pO2 (Venous) 23 mmHg
[2022-12-20] MEDS: methylPREDNISolone SUCC 125 MG VIAL IVP (11:35)
[2022-12-20 11:46] LABS: INR 1.1 (0.9-1.1); PTT Activated 23.6 sec (21.5-31.9); Prothrombin Time 11.1 sec (9.3-11.0)
[2022-12-20 11:56] LABS: ALT 82 U/L (14-59); AST 56 U/L (15-37); Alkaline Phosphatase 115 U/L (46-116); Anion Gap 10.8 mmol/L (3-11); BUN 29 mg/dL (7-18); Bilirubin, Total 0.5 mg/dL (0.2-1.0); CO2 24.2 mmol/L (21.0-32.0); CREATININE 1.5 mg/dL (0.55-1.02); Calcium 8.8 mg/dL (8.5-10.1); Chloride 109 mmol/L (98-107); Estimated GFR 35.01 (mL/min/1.73m2); Glucose 122 mg/dL (74-106); Magnesium 1.9 mg/dL (1.8-2.4); NT-proBNP 1724 pg/mL (<300); Sodium 144 mmol/L (136-145); TSH (W/Ref FT4) 1.97 uIU/mL (0.36-3.74); Total Protein 6.3 g/dL (6.4-8.2); Troponin I < 50 ng/L (<or=60)
[2022-12-20 12:00] LABS: Source Nasal/Nares
[2022-12-20 12:44] LABS: COVID-19 PCR Negative (Negative)
[2022-12-20] MEDS: Albuterol/Ipratropium 3 ML UPD VIAL UPD ×3 (12:59→20:44)
--- NOTE | 2022-12-20 13:11 | W.PM.HP.N ---
Date of service: 12/20/22 Time of Service: 13:12 Assessment and Plan Assessment and plan (1) Shortness of breath: Status: Acute Assessment and plan: likely multifactoral awaiting CBC, has history of anemia 1 month ago, required blood transfusion, negative EGD no evidence of pneumonia received updrafts and steroids for copd exac no unilateral leg swelling or recent travel. (2) Chronic obstructive lung disease: Status: Acute Assessment and plan: given IV steroids in the ED, awaiting procalcitonin level -?continue Symbicort 80 2 puff bid - continue home Incruse - Duonebs q4 prn - albuterol inhalers q4 prn - followed by pulmonary Qualifiers: COPD type: chronic bronchitis Chronic bronchitis type: simple Qualified Code(s): J41.0 - Simple chronic bronchitis (3) Congestive heart failure: Status: Chronic Assessment and plan: with history of pulmonary hypertension, BNP elevated above baseline consider IV lasix monitor I&O closely, daily weights last echo October 2022 Conclusion Technically difficult study, poor parasternal views.? Apical views are adequate The left ventricle is moderately hypertrophied.? Cavity is small.? EF is 55%.? Wall motion is normal Right ventricular size and systolic function appears normal Left atrium is moderately dilated.? Right atrial size is normal Aortic valve is calcified without stenosis or regurgitation Severe mitral annular calcification.? Mild mitral regurgitation Normal tricuspid valve with mild regurgitation.? Estimated right ventricular systolic pressure is 55 mmHg (4) Essential hypertension: Status: Chronic Assessment and plan: blood pressure has been stable continue to closely monitor (5) Pulmonary nodules/lesions, multiple: Status: Acute Assessment and plan: - outpatient follow up (6) Ischemic cerebrovascular accident (CVA) due to atherosclerosis of large extracranial artery: Status: Chronic Assessment and plan: residual left hemiparisis continue statin. Discussed with Dr Brown History of Present Illness History of Present Illness Chief Complaint: shortness of breath Narrative: This is a 82-year-old female patient past medical history of CVA with left hemiparesis congestive heart failure pulmonary hypertension COPD who presents with shortness of breath. She had a similar presentation to this found to be severely anemic with a hemoglobin of 6.0. Unfortunately CBC was missed so still pending at time of admission but her exam so far is consistent with COPD exacerbation she was given steroids and updraft with some improvement in her symptoms. On her last work-up she did have an upper endoscopy that showed no source of bleeding or ulcer. Hemodynamically she is slightly tachycardic in the low 100s. Review of Systems All systems reviewed & are unremarkable except as noted in HPI and below PFSH All Active Problems (Updated 12/21/22 @ 14:04 by Sandra Modi NP) Hypokalemia (Acute) Chronic obstructive lung disease (Acute) PFT'S 2009 FEV 1.15=59% continues to smoke Constipation (Chronic 11/14/17) Essential hypertension (Chronic 03/30/13) Lumbago (Chronic 05/10/13) Peripheral vascular disease (Acute) Jul 2014 [facility] [place] aorto bifem bypass LEFT ILIAC STENT [facility] [place] 03/2010 Polyp of colon (Acute) tubular adenoma Shoulder arthralgia (Chronic) Carotid stenosis, left (Acute) 50-69% stenosis 04/2022; complete obstruction right internal carotid. Grief reaction (Chronic) Spouse 08/13/21 passed CVA (cerebral vascular accident) (Chronic) Neuro est. between 04/2020-11/2021 Counseling regarding advanced directives and goals of care (Acute) Dilated bile duct (Acute ~02/2022) s/p ERCP [facility], 10mm dilation, no masses. Due repeat MRI in 10/2022. 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) Pulmonary hypertension (Acute) Pulmonary nodules/lesions, multiple (Acute) Anemia (Chronic) Pleural effusion (Acute) Pleural effusion (Acute) Congestive heart failure (Chronic) Weakness (Acute) Slurred speech (Acute) Shortness of breath (Acute) Medical History Anxiety about health Disorder of ear, left Diverticulitis of colon H/O SIGMOID COLECTOMY Hand pain, left Hyperlipidemia Perichondritis Seizures Smoker (10/19/16) Surgical History Extraction of cataract B/L 04/2013 Ligation of fallopian tube Rotator Cuff Repair RIGHT S/P partial colectomy Trigger Finger release WRIST/THUMB SURGERY LEFT THUMB LEFT WRIST RIGHT THUMB Family History Mother Diabetes Essential hypertension Stroke Father , 55 Heart disease Stroke Brother , 71 Complications from surgery No problems noted. Son No problems noted. Son No problems noted. Daughter No problems noted. Daughter No problems noted. Social History Smoking/Tobacco Use Status: Current every day Tobacco Type: cigarettes Smoking packs per day: 0.5 Smoking cigarettes per day: 10.0 Years smoked: 63 Smoking pack-years: 31.50 Tobacco: How many years used: 63 Quit status: considering quitting Second Hand Exposure: Yes Smoking risk assessment performed?: Yes Alcohol Intake: never Drug use: Rarely Counseling given: No Counseling provided: none Caregiver/Support person: No Household members: none Housing: house Number of Children: 4 Communication Needs: Hard of Hearing Do you need help understanding health information?: Rarely Pets and animals: Yes Pets and animals: dog(s) Sexually active: No Do you think of yourself as: straight/heterosexual Current gender identity: female What is your relationship status?: How often do you talk on the phone with friends or family?: three or more times per week Do you belong to any clubs or organized social groups?: no Panel score (0-1 are the most socially isolated patients): 1 What type of physical activity do you participate in: none Darlene/Yazidism: No preference Special darlene needs: No Seatbelt use: always Helmet use: No Drive intox or ride w/intox boom truck driver: No Do you feel safe at home: Yes Do you feel safe in your relationship?: Yes Meds Allergies and Home Medications Allergies Allergy/AdvReac Type Severity Reaction Status Date / Time baclofen AdvReac Intermediate mental Verified 12/20/22 10:56 status changes Home Medications Medication Instructions Recorded Confirmed Type multivit with 1 tab PO DAILY 07/18/20 12/20/22 History manatopm-kjpz-HX-lutein 8 mg iron-400 mcg-300 mcg tablet (Centrum Silver Women) lisinopril 20 1 tab PO DAILY #90 tabs 05/11/22 12/20/22 Rx mg-hydrochlorothiazide 25 mg tablet ketoconazole 2 % shampoo 1 applic topical .Twice a week PRN 06/21/22 12/20/22 Rx seborrheic derm #120 mL aspirin 81 mg tablet,delayed 81 mg PO DAILY 09/23/22 12/20/22 History release tizanidine 4 mg tablet 4 mg PO BID 09/23/22 12/20/22 History albuterol sulfate 90 mcg/actuation 2 puff inhalation 6XD PRN #8.5 09/27/22 12/20/22 Rx aerosol inhaler grams umeclidinium 62.5 mcg/actuation 1 inh inhalation DAILY #30 ea 10/06/22 12/20/22 Rx blister powder for inhalation (Incruse Ellipta) Inhaler, Assist Devices [Pocket 1 ea miscellaneous DIRECTED ##0 10/13/22 12/20/22 Rx Chamber] budesonide-formoterol HFA 80 2 puff inhalation BID #0 grams 10/13/22 12/20/22 Rx mcg-4.5 mcg/actuation aerosol inhaler (Symbicort) docusate sodium 100 mg capsule 100 mg PO TID PRN PRN #0 caps 10/13/22 12/20/22 Rx (Colace) mometasone 0.1 % topical cream 0 g topical BID #0 grams 10/13/22 12/20/22 Rx albuterol sulfate 2.5 mg/3 mL 2.5 mg (3 mL) inhalation Q4H PRN 11/27/22 12/20/22 Rx (0.083 %) solution for nebulization shortness of breath or wheezing #180 mL pantoprazole 40 mg tablet,delayed 40 mg PO DAILY@0730 #90 tabs 11/27/22 12/20/22 Rx release rosuvastatin 40 mg tablet 40 mg PO DAILY #90 tabs 11/27/22 12/20/22 Rx sertraline 100 mg tablet 100 mg PO DAILY #90 tabs 11/27/22 12/20/22 Rx potassium chloride 20 mEq 20 meq PO BID #180 tabs 12/06/22 12/20/22 Rx tablet,extended release (K-Tab) clopidogrel 75 mg tablet 75 mg PO DAILY #90 tabs 12/15/22 12/20/22 Rx Exam Const General: no acute distress Orientation: alert HENMT Head: normal to inspection Ears: external ears normal General nose exam: external nose normal Mouth: moist mucous membranes Eyes General: appearance normal, both eyes and all related structures Neck Neck: normal visual inspection Resp Auscultation: wheezes Cardio Jugular venous pressure: no JVD Rate: regular rate Skin General skin exam: no rashes or lesions noted Neuro General: patient alert and patient oriented x3 Extrem General: normal to inspection Psych Mental Status: mental status grossly normal Results Labs 12/21/22 06:25 12/21/22 06:25 Labs: Laboratory Results - last 24 hr 12/20/22 12/20/22 12/20/22 11:19 11:19 11:19 PT 11.1 H INR 1.1 APTT 23.6 VBG pH 7.41 VBG pCO2 37 L VBG pO2 23 VBG HCO3 23 VBG Total CO2 23 L VBG O2 Saturation 36 VBG Base Excess -2 Sodium 144 Potassium 4.0 Chloride 109 H Carbon Dioxide 24.2 Anion Gap 10.8 BUN 29 H Creatinine 1.5 H Est GFR (CKD-EPI 2020) 35.01 Glucose 122 H Calcium 8.8 Magnesium 1.9 Total Bilirubin 0.5 AST 56 H ALT 82 H Alkaline Phosphatase 115 Troponin I < 50 NT-Pro-B Natriuret Pep 1724 H Total Protein 6.3 L Albumin 3.0 L TSH 1.97 COVID-19 Source SARS-CoV-2 (PCR) 12/20/22 11:33 PT INR APTT VBG pH VBG pCO2 VBG pO2 VBG HCO3 VBG Total CO2 VBG O2 Saturation VBG Base Excess Sodium Potassium Chloride Carbon Dioxide Anion Gap BUN Creatinine Est GFR (CKD-EPI 2020) Glucose Calcium Magnesium Total Bilirubin AST ALT Alkaline Phosphatase Troponin I NT-Pro-B Natriuret Pep Total Protein Albumin TSH COVID-19 Source Nasal/Nares SARS-CoV-2 (PCR) Negative Last Vital Signs Temp 37.0 C 12/20/22 10:49 Pulse 101 H 12/20/22 10:49 Resp 18 12/20/22 11:05 BP 133/42 L 12/20/22 10:49 Pulse Ox 90 L 12/20/22 12:59 Time Spent Time spent with Patient: 40-54 minutes Time was spent: preparing to see the patient(eg.review tests), obtaining and/or reviewing separately otained hiistory, ordering medications,tests, procedures, indepentently interpreting results and counseling the patient
[2022-12-20 13:13] LABS: Abs Immature Grans 0.08 10^3/uL (0.0-0.06); Absolute Basophil Count 0.02 10^3/uL (0.0-0.2); Absolute Eosinophil Count 0.03 10^3/uL (0.0-0.7); Absolute Lymphocyte Count 1.04 10^3/uL (1.2-3.4); Absolute Monocyte Count 1.07 10^3/uL (0.1-0.8); Absolute Neutrophil Count 12.89 10^3/uL (1.2-6.7); Basophils % 0.1; Eosinophils % 0.2; Immature Grans % 0.5; Lymphocytes % 6.9; MCH 27.7 pg (27.0-33.0); MCV 92 fL (80-95); MPV 10.1 fL (8.0-11.0); Monocytes % 7.1; Neutrophils % 85.2; Platelet Count 265 10^3/uL (130-400); RBC 2.38 10^6/uL (3.93-5.22); RDW 17.5 % (11.7-14.6); RDW-SD 59.4 fL; WBC 15.13 10^3/uL (4.4-10.8)
[2022-12-20 13:16] LABS: HGB 6.6 g/dL (11.2-15.7)
[2022-12-20 13:55] LABS: Troponin I < 50 ng/L (<or=60)
[2022-12-20 14:11] LABS: Procalcitonin 0.1 ng/mL
[2022-12-20 14:31] LABS: Bilirubin Negative (Negative); Blood Small (Negative); Clarity Sl Cloudy (Clear); Glucose Negative (Negative); Ketones Negative (Negative); Leukocyte Esterase Negative (Negative); Nitrite Negative (Negative); Urobilinogen 0.2 mg/dL (Up to 0.2)
[2022-12-20 14:39] LABS: Epithelial Cells Few HPF (Negative); WBC Negative HPF (0-5)
[2022-12-20 14:40] LABS: Bacteria Negative HPF (Negative); C & S Indicated? No; Casts 0-2 Hyaline LPF (Negative); Crystals Negative HPF (Negative); Mucus Trace (Negative)
[2022-12-20] MEDS: Furosemide 40 MG/4 ML VIAL IVP (19:18)
[2022-12-20] MEDS: Budesonide/Formoterol 80/4.5 6.9 GM 60 PUFF INH IH (20:43)
[2022-12-20] MEDS: tiZANidine 4 MG TABLET PO (20:44)
[2022-12-20] MEDS: Acetaminophen 325 MG TAB 650 MG PO (21:55)
[2022-12-20] MEDS: traMADol 50 MG TAB 25 MG PO (23:02)
[2022-12-20] MEDS: Normal Saline Flush 10 ML SYR IVP (23:03)
[2022-12-21] VITALS (12 sets, daily range): BP systolic 96–123; BP diastolic 48–68; PULSE 63–79; RESP 1–20; TEMP 35.8–36.8; O2SAT 92–97
[2022-12-21 03:01] LABS: HCT 27.9 % (36.0-46.0); HGB 9.1 g/dL (11.2-15.7)
[2022-12-21 07:14] LABS: Abs Immature Grans 0.07 10^3/uL (0.0-0.06); Absolute Basophil Count 0.01 10^3/uL (0.0-0.2); Absolute Lymphocyte Count 0.92 10^3/uL (1.2-3.4); Basophils % 0.1; HCT 29.3 % (36.0-46.0); HGB 9.4 g/dL (11.2-15.7); Immature Grans % 0.6; Lymphocytes % 7.6; MCHC 32.1 % (32.0-36.0); MCV 90 fL (80-95); MPV 9.9 fL (8.0-11.0); Monocytes % 11.4; Neutrophils % 80.3; Platelet Count 227 10^3/uL (130-400); RBC 3.24 10^6/uL (3.93-5.22); RDW 16.6 % (11.7-14.6); RDW-SD 54.9 fL; WBC 12.07 10^3/uL (4.4-10.8)
[2022-12-21 07:16] LABS: Absolute Monocyte Count 1.38 10^3/uL (0.1-0.8); Absolute Neutrophil Count 9.69 10^3/uL (1.2-6.7)
[2022-12-21 07:23] LABS: Anion Gap 11.1 mmol/L (3-11); BUN 35 mg/dL (7-18); CO2 25.9 mmol/L (21.0-32.0); CREATININE 1.6 mg/dL (0.55-1.02); Calcium 8.8 mg/dL (8.5-10.1); Chloride 110 mmol/L (98-107); Glucose 140 mg/dL (74-106); Potassium 3.4 mmol/L (3.5-5.1); Sodium 147 mmol/L (136-145)
[2022-12-21] MEDS: Pantoprazole 40 MG TABCR PO (07:32)
[2022-12-21] MEDS: Budesonide/Formoterol 80/4.5 6.9 GM 60 PUFF INH IH ×2 (07:35→20:52)
[2022-12-21] MEDS: Albuterol/Ipratropium 3 ML UPD VIAL UPD (07:36)
[2022-12-21] MEDS: Umeclidinium 7 CAP INHALER IH (07:36)
--- NOTE | 2022-12-21 09:12 | NUR.NOTE ---
Nursing Note: At approximately 0900 on 12/21/22, this RN returned a call from Leticia (pt.'s daughter - on HIPAA). RN updated pt.'s daughter regarding how the pt.'s night had gone, how the pt. had responded to the blood transfusions yesterday (specifically the pt.'s lab values - hemoglobin and hematocrit), the pt.'s mentation, VS, pain level and pain management techniques, the possibility of applying a sacral mepilex dressing for pressure injury prevention (pt. has been verbalizing ...tailbone pain), plan of care, etc. Pt.'s daughter verbalized understanding and presented with a few questions that were answered. Pt.'s daughter then requested to have the call transferred to the pt.'s room, which the RN then did.
[2022-12-21] MEDS: Aspirin E.C. 81 MG TABEC PO (09:22)
[2022-12-21] MEDS: Potassium Chloride 20 MEQ TABCR 40 MEQ PO ×2 (09:22→17:50)
[2022-12-21] MEDS: Sertraline 100 MG TAB PO (09:22)
[2022-12-21] MEDS: hydroCHLOROthiazide 25 MG TAB PO (09:22)
[2022-12-21] MEDS: Rosuvastatin 20 MG TAB 40 MG PO (09:22)
[2022-12-21] MEDS: tiZANidine 4 MG TABLET PO ×2 (09:22→20:52)
[2022-12-21 09:27] LABS: Lab Add On Test DONE
[2022-12-21 09:36] LABS: Magnesium 2.2 mg/dL (1.8-2.4)
--- NOTE | 2022-12-21 11:24 | PGE_ITS ---
Date of Service Date of service: 12/21/22 Time of Service: 11:24 Assessment and Plan Assessment and plan (1) Anemia: Status: Chronic Assessment and plan: received 2 units of PRBC with stable H&H, no evidence of active bleeding stool for OB upper endoscopy in November 2022, no obvious source of bleeding/ulcers (2) Hypokalemia: Status: Acute Assessment and plan: after receiving lasix, replete and follow mag added (3) Chronic obstructive lung disease: Status: Acute Assessment and plan: given IV steroids in the ED, awaiting procalcitonin level -?continue Symbicort 80 2 puff bid - continue home Incruse - Duonebs q4 prn - albuterol inhalers q4 prn - followed by pulmonary Qualifiers: COPD type: chronic bronchitis Chronic bronchitis type: simple Qualified Code(s): J41.0 - Simple chronic bronchitis (4) Congestive heart failure: Status: Chronic Assessment and plan: with history of pulmonary hypertension, BNP elevated above baseline consider IV lasix monitor I&O closely, daily weights last echo October 2022 Conclusion Technically difficult study, poor parasternal views.? Apical views are adequate The left ventricle is moderately hypertrophied.? Cavity is small.? EF is 55%.? Wall motion is normal Right ventricular size and systolic function appears normal Left atrium is moderately dilated.? Right atrial size is normal Aortic valve is calcified without stenosis or regurgitation Severe mitral annular calcification.? Mild mitral regurgitation Normal tricuspid valve with mild regurgitation.? 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 Discussed with Dr Barnard Subjective Subjective Patient reports: no new complaints, tolerating liquids well, tolerating a regular diet and afebrile; denies shortness of breath (still requiring oxygen) Exam Const General: no acute distress Orientation: alert [facility] Head: normal to inspection Ears: external ears normal General nose exam: external nose normal Mouth: moist mucous membranes Eyes General: appearance normal, both eyes and all related structures Neck Neck: normal visual inspection Resp Auscultation: wheezes Cardio Jugular venous pressure: no JVD Rate: regular rate Skin General skin exam: no rashes or lesions noted Neuro General: patient alert and patient oriented x3 Extrem General: normal to inspection Psych Mental Status: mental status grossly normal Objective Last Vital Signs Temp 35.8 C L 12/21/22 11:11 Pulse 63 12/21/22 11:11 Resp 18 12/21/22 11:11 BP 96/48 L 12/21/22 11:11 Pulse Ox 97 12/21/22 11:11 Laboratory Results - last 24 hr 12/20/22 12/20/22 12/20/22 11:19 11:19 11:19 WBC RBC Hgb Hct MCV MCH MCHC RDW Plt Count MPV Immature Gran % Neutrophils % Lymphocytes % Monocytes % Eosinophils % Basophils % Nucleated RBC % Absolute Neutrophils Absolute Lymphocytes Absolute Monocytes Absolute Eosinophils Absolute Basophils PT 11.1 H INR 1.1 APTT 23.6 VBG pH 7.41 VBG pCO2 37 L VBG pO2 23 VBG HCO3 23 VBG Total CO2 23 L VBG O2 Saturation 36 VBG Base Excess -2 Sodium 144 Potassium 4.0 Chloride 109 H Carbon Dioxide 24.2 Anion Gap 10.8 BUN 29 H Creatinine 1.5 H Est GFR (CKD-EPI 2020) 35.01 Glucose 122 H Calcium 8.8 Magnesium 1.9 Total Bilirubin 0.5 AST 56 H ALT 82 H Alkaline Phosphatase 115 Troponin I < 50 NT-Pro-B Natriuret Pep 1724 H Total Protein 6.3 L Albumin 3.0 L Procalcitonin TSH 1.97 Urine Color Urine Clarity Urine pH Ur Specific [place] Urine Protein Urine Ketones Urine Blood Urine Nitrite Urine Bilirubin Urine Urobilinogen Ur Leukocyte Esterase Urine RBC Urine WBC Ur Epithelial Cells Urine Crystals Urine Bacteria Urine Casts Urine Mucus Ur Culture Indicated? Urine Glucose COVID-19 Source SARS-CoV-2 (PCR) Add-On Test Request Patient ABO/Rh Antibody Screen Crossmatch 12/20/22 12/20/22 12/20/22 11:19 11:19 11:33 WBC 15.13 H RBC 2.38 L Hgb 6.6 L* Hct 22.0 L MCV 92 MCH 27.7 MCHC 30.0 L RDW 17.5 H Plt Count 265 MPV 10.1 Immature Gran % 0.5 Neutrophils % 85.2 Lymphocytes % 6.9 Monocytes % 7.1 Eosinophils % 0.2 Basophils % 0.1 Nucleated RBC % 0.0 Absolute Neutrophils 12.89 H Absolute Lymphocytes 1.04 L Absolute Monocytes 1.07 H Absolute Eosinophils 0.03 Absolute Basophils 0.02 PT INR APTT VBG pH VBG pCO2 VBG pO2 VBG HCO3 VBG Total CO2 VBG O2 Saturation VBG Base Excess Sodium Potassium Chloride Carbon Dioxide Anion Gap BUN Creatinine Est GFR (CKD-EPI 2020) Glucose Calcium Magnesium Total Bilirubin AST ALT Alkaline Phosphatase Troponin I NT-Pro-B Natriuret Pep Total Protein Albumin Procalcitonin 0.1 TSH Urine Color Urine Clarity Urine pH Ur Specific [place] Urine Protein Urine Ketones Urine Blood Urine Nitrite Urine Bilirubin Urine Urobilinogen Ur Leukocyte Esterase Urine RBC Urine WBC Ur Epithelial Cells Urine Crystals Urine Bacteria Urine Casts Urine Mucus Ur Culture Indicated? Urine Glucose COVID-19 Source Nasal/Nares SARS-CoV-2 (PCR) Negative Add-On Test Request Patient ABO/Rh Antibody Screen Crossmatch 12/20/22 12/20/22 12/20/22 13:25 13:25 14:06 WBC RBC Hgb Hct MCV MCH MCHC RDW Plt Count MPV Immature Gran % Neutrophils % Lymphocytes % Monocytes % Eosinophils % Basophils % Nucleated RBC % Absolute Neutrophils Absolute Lymphocytes Absolute Monocytes Absolute Eosinophils Absolute Basophils PT INR APTT VBG pH VBG pCO2 VBG pO2 VBG HCO3 VBG Total CO2 VBG O2 Saturation VBG Base Excess Sodium Potassium Chloride Carbon Dioxide Anion Gap BUN Creatinine Est GFR (CKD-EPI 2020) Glucose Calcium Magnesium Total Bilirubin AST ALT Alkaline Phosphatase Troponin I < 50 NT-Pro-B Natriuret Pep Total Protein Albumin Procalcitonin TSH Urine Color Yellow Urine Clarity Sl Cloudy Urine pH 6.0 Ur Specific [place] 1.020 Urine Protein 100 H Urine Ketones Negative Urine Blood Small H Urine Nitrite Negative Urine Bilirubin Negative Urine Urobilinogen 0.2 Ur Leukocyte Esterase Negative Urine RBC 3-5 H Urine WBC Negative Ur Epithelial Cells Few Urine Crystals Negative Urine Bacteria Negative Urine Casts 0-2 Hyaline Urine Mucus Trace Ur Culture Indicated? No Urine Glucose Negative COVID-19 Source SARS-CoV-2 (PCR) Add-On Test Request Patient ABO/Rh O Positive Antibody Screen NEGATIVE Crossmatch See Detail 12/21/22 12/21/22 12/21/22 02:30 06:25 06:25 WBC 12.07 H RBC 3.24 L Hgb 9.1 L D 9.4 L Hct 27.9 L 29.3 L MCV 90 MCH 29.0 MCHC 32.1 D RDW 16.6 H Plt Count 227 MPV 9.9 Immature Gran % 0.6 Neutrophils % 80.3 Lymphocytes % 7.6 Monocytes % 11.4 Eosinophils % 0.0 Basophils % 0.1 Nucleated RBC % 0.0 Absolute Neutrophils 9.69 H Absolute Lymphocytes 0.92 L Absolute Monocytes 1.38 H Absolute Eosinophils 0.00 Absolute Basophils 0.01 PT INR APTT VBG pH VBG pCO2 VBG pO2 VBG HCO3 VBG Total CO2 VBG O2 Saturation VBG Base Excess Sodium 147 H Potassium 3.4 L Chloride 110 H Carbon Dioxide 25.9 Anion Gap 11.1 H BUN 35 H Creatinine 1.6 H Est GFR (CKD-EPI 2020) 32.40 Glucose 140 H Calcium 8.8 Magnesium Total Bilirubin AST ALT Alkaline Phosphatase Troponin I NT-Pro-B Natriuret Pep Total Protein Albumin Procalcitonin TSH Urine Color Urine Clarity Urine pH Ur Specific [place] Urine Protein Urine Ketones Urine Blood Urine Nitrite Urine Bilirubin Urine Urobilinogen Ur Leukocyte Esterase Urine RBC Urine WBC Ur Epithelial Cells Urine Crystals Urine Bacteria Urine Casts Urine Mucus Ur Culture Indicated? Urine Glucose COVID-19 Source SARS-CoV-2 (PCR) Add-On Test Request Patient ABO/Rh Antibody Screen Crossmatch 12/21/22 12/21/22 06:25 06:25 WBC RBC Hgb Hct MCV MCH MCHC RDW Plt Count MPV Immature Gran % Neutrophils % Lymphocytes % Monocytes % Eosinophils % Basophils % Nucleated RBC % Absolute Neutrophils Absolute Lymphocytes Absolute Monocytes Absolute Eosinophils Absolute Basophils PT INR APTT VBG pH VBG pCO2 VBG pO2 VBG HCO3 VBG Total CO2 VBG O2 Saturation VBG Base Excess Sodium Potassium Chloride Carbon Dioxide Anion Gap BUN Creatinine Est GFR (CKD-EPI 2020) Glucose Calcium Magnesium 2.2 Total Bilirubin AST ALT Alkaline Phosphatase Troponin I NT-Pro-B Natriuret Pep Total Protein Albumin Procalcitonin TSH Urine Color Urine Clarity Urine pH Ur Specific [place] Urine Protein Urine Ketones Urine Blood Urine Nitrite Urine Bilirubin Urine Urobilinogen Ur Leukocyte Esterase Urine RBC Urine WBC Ur Epithelial Cells Urine Crystals Urine Bacteria Urine Casts Urine Mucus Ur Culture Indicated? Urine Glucose COVID-19 Source SARS-CoV-2 (PCR) Add-On Test Request DONE Patient ABO/Rh Antibody Screen Crossmatch Time Spent with Patient Time Spent with Patient: 25-34 minutes Time was spent: preparing to see the patient(eg.review tests), obtaining and/or reviewing separately otained hiistory, ordering medications,tests, procedures, indepentently interpreting results and counseling the patient
[2022-12-21] MEDS: Acetaminophen 325 MG TAB 650 MG PO (11:30)
--- NOTE | 2022-12-21 13:03 | INITIAL_ITS ---
Date of service: 12/21/22 Time of Service: 13:03 Care Management Initial Assmt Initial Assessment REASON FOR HOSPITALIZATION:: Shortness of breath, anemia, COPD exacerbation PREVIOUS FUNCTIONAL STATUS/SOCIAL/FAMILY SUPPORTS:: Kathleen lives alone in a si ngle family home in [place]. She has 4 children, two live locally and the other 2 are out of state. The family is close and the children are supportive, especially the ones who live in the area. 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 She is independent with ADLs and uses a cane and a walker. Kathleen currently receives home health services for RN, PT and OT and is connected to a immigration case worker (Lauren) at [place] [facility]. CURRENT FUNCTIONAL STATUS:: Kathleen was lying in bed when CM met with her. She awake and easily engages in conversation. She currently lives alone and reports that her community team is trying to get her an apartment at the [facility]. ADVANCE DIRECTIVES:: On file. Daughter Alexia Tomlinson is alternate. [facility]CA listed is . Has patient been provided with info about the portal/API?: Yes Did the patient sign up for the portal?: Yes (Prior to admission) CODE STATUS:: DNR/DNI INSURANCE COVERAGE / FINANCIAL ISSUES:: Medicare CURRENT HOME/COMMUNITY SERVICES/EQUIPMENT:: Home health services: PT, OT, RN, REPRODUCTIVE ENDOCRINOLOGIST PRIMARY CARE PHYSICIAN:: Samir Santa POTENTIAL DISCHARGE NEEDS:: follow up with PCP and plan of care PATIENT/FAMILY EDUCATION NEEDS:: Review of discharge instructions, limitations, activity, follow up plan, discuss Ask Me Three TRANSPORTATION:: Family vs RCT private vehicle PLAN:: PT consult is ordered, awaiting discharge recommendations. She is agreeable to SNF for STR, if needed. She has Full [facility] services and [facility] CM is Lauren. CM will follow and assess for discharge needs. PFSH All Active Problems (Updated 12/21/22 @ 14:04 by Sandra Modi NP) Hypokalemia (Acute) Chronic obstructive lung disease (Acute) PFT'S 2009 FEV 1.15=59% continues to smoke Constipation (Chronic 11/14/17) Essential hypertension (Chronic 03/30/13) Lumbago (Chronic 05/10/13) Peripheral vascular disease (Acute) Jul 2014 [facility] aorto bifem bypass LEFT ILIAC STENT [facility] 03/2010 Polyp of colon (Acute) tubular adenoma Shoulder arthralgia (Chronic) Carotid stenosis, left (Acute) 50-69% stenosis 04/2022; complete obstruction right internal carotid. Grief reaction (Chronic) Spouse 08/13/21 passed CVA (cerebral vascular accident) (Chronic) Neuro est. between 04/2020-11/2021 Counseling regarding advanced directives and goals of care (Acute) Dilated bile duct (Acute ~02/2022) s/p ERCP [facility], 10mm dilation, no masses. Due repeat MRI in 10/2022. 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) Pulmonary hypertension (Acute) Pulmonary nodules/lesions, multiple (Acute) Anemia (Chronic) Pleural effusion (Acute) Pleural effusion (Acute) Congestive heart failure (Chronic) Weakness (Acute) Slurred speech (Acute) Shortness of breath (Acute) Medical History Anxiety about health Disorder of ear, left Diverticulitis of colon H/O SIGMOID COLECTOMY Hand pain, left Hyperlipidemia Perichondritis Seizures Smoker (10/19/16) Surgical History Extraction of cataract B/L 04/2013 Ligation of fallopian tube Rotator Cuff Repair RIGHT S/P partial colectomy Trigger Finger release WRIST/THUMB SURGERY LEFT THUMB LEFT WRIST RIGHT THUMB Family History Mother Diabetes Essential hypertension Stroke Father , 55 Heart disease Stroke Brother , 71 Complications from surgery No problems noted. Son No problems noted. Son No problems noted. Daughter No problems noted. Daughter No problems noted. Social History Smoking/Tobacco Use Status: Current every day Tobacco Type: cigarettes Smoking packs per day: 0.5 Smoking cigarettes per day: 10.0 Years smoked: 63 Smoking pack-years: 31.50 Tobacco: How many years used: 63 Quit status: considering quitting Second Hand Exposure: Yes Smoking risk assessment performed?: Yes Alcohol Intake: never Drug use: Rarely Counseling given: No Counseling provided: none Caregiver/Support person: No Household members: none Housing: house Number of Children: 4 Communication Needs: Hard of Hearing Do you need help understanding health information?: Rarely Pets and animals: Yes Pets and animals: dog(s) Sexually active: No Do you think of yourself as: straight/heterosexual Current gender identity: female What is your relationship status?: How often do you talk on the phone with friends or family?: three or more times per week Do you belong to any clubs or organized social groups?: no Panel score (0-1 are the most socially isolated patients): 1 What type of physical activity do you participate in: none Darlene/Cheondoism: No preference Special darlene needs: No Seatbelt use: always Helmet use: No Drive intox or ride w/intox dolly driver: No Do you feel safe at home: Yes Do you feel safe in your relationship?: Yes
[2022-12-21] MEDS: Albuterol 2.5 MG/3 ML INH SOLN VIAL UPD (20:51)
[2022-12-22] VITALS (8 sets, daily range): BP systolic 102–149; BP diastolic 52–82; PULSE 45–83; RESP 7–20; TEMP 36.6–37.7; O2SAT 82–94
--- NOTE | 2022-12-22 | DI.RAD_ITS ---
Exam(s) XR CHEST 2V PA LATERAL EXAM: XR CHEST 2V PA LATERAL CLINICAL HISTORY: increased WBC and O2 requirement TECHNIQUE: 2D digital imaging was performed of the chest. Two images were obtained. PA and lateral views were obtained. COMPARISON: CR XR CHEST 2V PA LATERAL from 12/20/2022 FINDINGS: MEDIASTINUM: Normal. HEART: Normal. PULMONARY VASCULATURE: Normal. LUNGS: Clear. PLEURAL SPACE: No pleural effusion or pneumothorax. BONE:Within normal limits for the patient's age. OTHER FINDINGS:Normal. IMPRESSION: No acute pulmonary findings. DATA REPOSITORY: RADIATION DOSE DELIVERED:
[2022-12-22] MEDS: Albuterol 2.5 MG/3 ML INH SOLN VIAL UPD (02:45)
[2022-12-22] MEDS: Rosuvastatin 20 MG TAB 40 MG PO (07:33)
[2022-12-22] MEDS: Sertraline 100 MG TAB PO (07:34)
[2022-12-22] MEDS: Docusate Sodium 100 MG CAP PO ×2 (07:34→19:27)
[2022-12-22] MEDS: Potassium Chloride 20 MEQ TABCR 40 MEQ PO ×3 (07:34→17:30)
[2022-12-22] MEDS: Pantoprazole 40 MG TABCR PO (07:34)
[2022-12-22] MEDS: tiZANidine 4 MG TABLET PO ×2 (07:34→19:28)
[2022-12-22 07:36] LABS: Abs Immature Grans 0.05 10^3/uL (0.0-0.06); Absolute Basophil Count 0.03 10^3/uL (0.0-0.2); Absolute Lymphocyte Count 1.08 10^3/uL (1.2-3.4); Basophils % 0.2; Eosinophils % 0.3; HCT 33.5 % (36.0-46.0); HGB 10.5 g/dL (11.2-15.7); Immature Grans % 0.3; Lymphocytes % 7.3; MCH 28.3 pg (27.0-33.0); MCHC 31.3 % (32.0-36.0); MCV 90 fL (80-95); MPV 10.2 fL (8.0-11.0); Monocytes % 6.9; Platelet Count 265 10^3/uL (130-400); RBC 3.71 10^6/uL (3.93-5.22); RDW 16.3 % (11.7-14.6); WBC 14.84 10^3/uL (4.4-10.8)
[2022-12-22 07:38] LABS: Absolute Eosinophil Count 0.04 10^3/uL (0.0-0.7); Absolute Monocyte Count 1.02 10^3/uL (0.1-0.8); Absolute Neutrophil Count 12.61 10^3/uL (1.2-6.7)
[2022-12-22 08:07] LABS: Anion Gap 9.9 mmol/L (3-11); BUN 35 mg/dL (7-18); CO2 26.1 mmol/L (21.0-32.0); CREATININE 1.5 mg/dL (0.55-1.02); Calcium 9.3 mg/dL (8.5-10.1); Chloride 104 mmol/L (98-107); Estimated GFR 35.01 (mL/min/1.73m2); Glucose 95 mg/dL (74-106); Potassium 3.2 mmol/L (3.5-5.1); Sodium 140 mmol/L (136-145)
[2022-12-22] MEDS: Umeclidinium 7 CAP INHALER IH (08:16)
[2022-12-22] MEDS: Budesonide/Formoterol 80/4.5 6.9 GM 60 PUFF INH IH ×2 (08:16→19:23)
[2022-12-22] MEDS: Polyethylene Glycol 3350 17 GM PACKET PO (08:51)
[2022-12-22 12:48] LABS: Bilirubin Negative (Negative); Blood Small (Negative); Clarity Clear (Clear); Glucose Negative (Negative); Ketones Negative (Negative); Leukocyte Esterase Negative (Negative); Nitrite Negative (Negative); Specific Gravity 1.015 (1.005-1.025); Urobilinogen 0.2 mg/dL (Up to 0.2)
[2022-12-22 12:54] LABS: WBC Negative HPF (0-5)
[2022-12-22 12:55] LABS: Bacteria Negative HPF (Negative); C & S Indicated? No; Casts Negative LPF (Negative); Epithelial Cells Moderate HPF (Negative); Mucus Negative (Negative)
[2022-12-22] MEDS: Bisacodyl 10 MG SUPP PR (13:49)
--- NOTE | 2022-12-22 14:10 | PDOC.CMPRO ---
Date of service: 12/22/22 Time of Service: 14:10 Care Management Progress Note Progress Note Text Progress Note Text: S/O: PT consult is ordered, awaiting discharge recommendations. Kathleen remains agreeable to go to SNF for STR, if needed. Per pt, her goal is to move into an assisted living facility and states that her community team is in the process of getting her into the [facility]. CM contacted, Lauren from [facility] who notes that she has discussed Assisted Living with Kathleen several times, however she has never followed through with her [facility] application. Lauren is planning on coming to the hospital tomorrow to help Kathleen finish her LTM application. In addition, Kathleen shares with that [facility] was trying to get her approved for Home O2. Bg from [facility] advises that they sometimes help with this process, however she does not see any documentation of this in Kathleen's file. CM is awaiting a return call from Ana at [facility]. CM will continue to follow. A: 82 year old female admitted to [facility] on 12/20/22 for Shortness of breath, anemia, COPD exacerbation P:?PT consult is ordered, awaiting discharge recommendations. Anticipate SNF for STR vs. Home with resumption of [facility] services and community supports. Kathleen remains agreeable to SNF for STR, if needed but ultimately wants to live at the [facility]. [facility] KEVYN Aguilar is supporting this goal from the community and helping her apply for LTM. CM will follow and assess for discharge needs.
--- NOTE | 2022-12-22 16:01 | CHAPLAIN ---
Kathleen was sitting up in bed when I visited. She said she is so-so. She told me she's in touch with family. She was pleasant, but not interested in further conversation. I will try again another day.
--- NOTE | 2022-12-22 16:05 | IN_ITS ---
Date of service: 12/22/22 Time of Service: 10:18 PT Notes Visit Reasons: Hypoxic Resp Failure Physical Therapy Inpatient Initial Evaluation Date: 12/22/2022 Referring Doctor: Sandra Modi,? EDUCATION ADMINISTRATOR PT Orders: PT CONSULT: Limited ability Precautions: Fall. Standard. Activity as tolerated.? L-sided hemiparesis from previous stroke. Patient Profile/Admitting Diagnosis:? Kathleen is a 82-year-old female who presented to the ED on 12/20/2022 due to slip and fall from chair, shortness of breath, worsening of cough.? Patient is admitted for management of COPD exacerbation, acute CHF, acute bronchitis, essential hypertension, pulmonary nodules, and late effects of ischemic CVA. PMHX: All Active Problems?(Updated 12/21/22 @ 14:04 by Sandra Modi NP) Hypokalemia (Acute) Chronic obstructive lung disease (Acute) PFT'S 2009 FEV 1.15=59% continues to smoke Constipation (Chronic 11/14/17) Essential hypertension (Chronic 03/30/13) Lumbago (Chronic 05/10/13) Peripheral vascular disease (Acute) Jul 2014 [facility] [place] aorto bifem bypass LEFT ILIAC STENT [facility] [place] 03/2010 Polyp of colon (Acute) tubular adenoma Shoulder arthralgia (Chronic) Carotid stenosis, left (Acute) 50-69% stenosis 04/2022; complete obstruction right internal carotid. Grief reaction (Chronic) Spouse? 08/13/21 passed CVA (cerebral vascular accident) (Chronic) Neuro est. between 04/2020-11/2021 Counseling regarding advanced directives and goals of care (Acute) Dilated bile duct (Acute ~02/2022) s/p ERCP [facility], 10mm dilation, no masses.? Due repeat MRI in 10/2022. 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) Pulmonary hypertension (Acute) Pulmonary nodules/lesions, multiple (Acute) Anemia (Chronic) Pleural effusion (Acute) Pleural effusion (Acute) Congestive heart failure (Chronic) Weakness (Acute) Slurred speech (Acute) Shortness of breath (Acute) Medical History Anxiety about health Disorder of ear, left Diverticulitis of colon H/O SIGMOID COLECTOMY Hand pain, left Hyperlipidemia Perichondritis Seizures Smoker (10/19/16) Surgical History? Extraction of cataract B/L 04/2013 Ligation of fallopian tube Rotator Cuff Repair RIGHT S/P partial colectomy Trigger Finger release WRIST/THUMB SURGERY LEFT THUMB LEFT WRIST RIGHT THUMB Social History/Home Situation: Patient lives alone in a private home.? States that she has a son and a daughter who live close by.? Independent with all mobility ADLs using hemiwalker.? Used to be able to walk up to 30 feet safely.? Rides RCT for her grocery shopping and doctor's appointments. Equipment Owned/DME: Hemiwalker, SPC, emergency alert device Subjective: Patient reports sliding off from her chair and hitting the floor with her bottom. Reports 5-6/10 pain since then. Agreeable to trying to get up to offload bottom and hopefully decrease pain. Objective: General Observation: Reclined on bedside chair.? In NAD. L UE resting on pillow. Foam cushion on chair for added support to painful coccyx/sarcum. Mental Status: Alert and oriented as to person, place, time, and purpose. Able to pay attention, focus, and respond appropriately. Pain: 5-6/10 in sacral and coccyx area ROM: Right Upper Extremity: ? Shoulder Flexion WFL. Shoulder abduction WFL. Elbow flexion WFL. Wrist flexion WFL. Functional opening and closing of hand WFL. Left Upper Extremity:? Shoulder Flexion allows up to 60 degrees with pain report at EOR. Shoulder abduction allows up to 40 degrees with pain report at EOR. Elbow flexion allows up to 90 degrees. Wrist flexion less than 25% of AROM. Functional opening and closing of hand limited. Right Lower Extremity: Hip flexion WFL. Hip abduction WFL. Knee flexion WFL. Ankle dorsiflexion WFL. Ankle plantarflexion WFL. Left Lower Extremity: Hip flexion allows up to 90 degrees. Hip abduction allows up to 20 degrees.? Knee flexion 30 degrees to 90 degrees. Ankle dorsiflexion to neutral only. Ankle plantarflexion about 10 degrees. Strength: Right Upper Extremity: Shoulder flexors 4-/5. Shoulder abductors 4-/5. Elbow flexors 4-/5. Elbow extensors 4-/5. Center Machine Set Up Operator weak. Left Upper Extremity: Shoulder flexors 3-/5. Shoulder abductors 3-/5. Elbow flexors 3-/5. Elbow extensors 3-/5. Center Machine Set Up Operator weak. Right Lower Extremity: Hip flexors 4-/5. Hip abductors 4-/5. Knee flexors 4-/5. Knee extensors 4-/5. Ankle dorsiflexors 4-/5. Ankle plantarflexors 4-/5. Left Lower Extremity: Hip flexors 3-/5. Hip abductors 3-/5. Knee flexors 3-/5. Knee extensors 2-/5. Ankle dorsiflexors 2-/5. Ankle plantarflexors 3-/5. Bed Mobility/Transfers: Sit to stand with contact guard assist with hemiwalker on R Stand to sit with contact guard assist with hemiwalker on R Gait: 20 feet requiring contact guard assist using hemiwalker.? Pre-existing L hemiparetic gait noted.? L UE in abnormal flexion synergy.? L LE in abnormal extensor synergy with decreased hip and knee flexion. Increased L UE/LE tone with effort.? Step height and width asymmetric.? Mild circumduction seen on L LE. Required moderate verbal cueing to maximize awareness on the L due to presistent hemineglect. Balance: Static Sitting: Good Dynamic Sitting: Fair Static Standing: Fair Dynamic Standing: Fair Special Tests: Mobility Limitations Standardized Measure [facility] 6 clicks Basic Mobility Inpatient Short Form: Raw Score: 18 ? CMS Score: 47% deficit? ? ? NEURO: Spasticity/Hypertonicity in L UE/LE 4-stage Balance Test deferred Abnormal flexion synergy in L UE,? extension synergy in L LE Babinski Reflex present in L LE L hemineglect in L UE/LE (mild) Informed Consent/Education:? Patient was instructed in purpose of PT consult and plan of care.? Agreeable to proceed with established PT POC to achieve personal goals. Assessment: Awareness of midline impaired.? Activity tolerance reduced due to COPD exacerbation.? Chronic pain in L UE limiting mobility.? Hemiparetic gait pattern increasing risk for falls. ? Patient presents with clinical signs and symptoms consistent with current/admitting diagnoses that have resulted to mobility limitations, gait instability, generalized weakness, and overall ADL decline as demonstrated by the following impairment level findings: 1.? Decreased strength to L UE/LE major muscle groups 2.? Impaired sitting/standing balance 3.? Impaired activity tolerance 4.? Limitation of joint range of motion in L UE/LE 5.? Shortness of breath 6.? Pain in L shoulder from L rotator cuff tear and pre-existing L sided- hemiparesis 7. Persistent L-sided neglect Impairments are contributing to the following functional limitations: 1.? Difficulty with ambulation without assistive device and physical assistance 2.? Increased completion time for mobility ADL performance 3.? Increased risk for falls 4.? Difficulty with managing steps alone safely Patient is assessed as a 71569 moderate complexity based on the following: History: 81-year-old female with past medical history as indicated above Examination: Demonstrable impairment in strength, balance, and mobility level with underlying impairments and functional limitations as exhibited above as well as deficit score of 69% utilizing the [facility] Mobility Inpatient Short Form Presentation: Evolving Decision Makin moderate complexity Goals: Goals X1 week 1. Supine-Sit independent 2. Sit-Supine independent 3. Sit-Stand independent 4. Stand-Sit independent with hemiwalker 5. Bed-Chair independent with hemiwalker 6. Chair-Bed independent with hemiwalker 7. Independent gait on level surface with use of hemiwalker for at least 100 feet without report of pain nor dyspnea 8. Independent stair negotiation while holding onto R rail rails for at least 3 steps without report of pain nor dyspnea 9. Independent with home exercise program 10. Good static and dynamic standing balance/tolerance Plan of Care/Treatment Plan: 1-2x/day, 7 days/week x 1 week. Plan of care has been reviewed with the MEDICAL CASH POSTER providing the service under Physical Therapy direction. Initiate Physical Therapy intervention for pain management as needed, strengthening, bed mobility, transfers, gait, stairs, balance training, and use of assistive device. DISCHARGE RECOMMENDATIONS: [] ? Home with no services [] [] ? Home with services [specify] [] ? Home with outpatient PT [] [] ? SNF for continued rehabilitation [] ? Senior Care Care [] [] ? SNF versus LTC based on ability to participate and progress [] [X] HH PT vs. SNF based on ability to progress toward goal. TREATMENT CODE/TIME: 48573 x 20 minutes,? 69955 x 12 minutes beginning at 10:18 AM. Thank you for the opportunity to participate in the care of this patient. Rebecca Regan PT, DPT, CLT [facility] [place], [place]
--- NOTE | 2022-12-22 18:52 | W.PM.PROGNOT ---
Date of Service Date of service: 12/22/22 Time of Service: 18:52 Assessment and Plan Assessment and plan (1) Anemia: Status: Chronic Assessment and plan: received 2 units of PRBC with stable H&H, no evidence of active bleeding stool for OB upper endoscopy in November 2022, no obvious source of bleeding/ulcers (2) Hypokalemia: Status: Acute Assessment and plan: after receiving lasix, replete and follow mag added (3) Chronic obstructive lung disease: Status: Acute Assessment and plan: -?continue Symbicort 80 2 puff bid - continue home Incruse - Duonebs q4 prn - albuterol inhalers q4 prn - followed by pulmonary Qualifiers: COPD type: chronic bronchitis Chronic bronchitis type: simple Qualified Code(s): J41.0 - Simple chronic bronchitis (4) Congestive heart failure: Status: Chronic Assessment and plan: with history of pulmonary hypertension, BNP elevated above baseline consider IV lasix monitor I&O closely, daily weights last echo October 2022 Conclusion Technically difficult study, poor parasternal views.? Apical views are adequate The left ventricle is moderately hypertrophied.? Cavity is small.? EF is 55%.? Wall motion is normal Right ventricular size and systolic function appears normal Left atrium is moderately dilated.? Right atrial size is normal Aortic valve is calcified without stenosis or regurgitation Severe mitral annular calcification.? Mild mitral regurgitation Normal tricuspid valve with mild regurgitation.? 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 Discussed with Dr Barnard Subjective Subjective Patient reports: no new complaints, feels better, tolerating a regular diet, voiding w/o difficulty, bowel movement, shortness of breath and afebrile; denies diarrhea, nausea or vomiting Interval history since last seen: Feeling better, would like to have oxygen at home, discussed she does not qualify. Exam Const General: no acute distress Orientation: alert HENMT Head: normal to inspection Ears: external ears normal General nose exam: external nose normal Mouth: moist mucous membranes Eyes General: appearance normal, both eyes and all related structures Neck Neck: normal visual inspection Resp Auscultation: wheezes Cardio Jugular venous pressure: no JVD Rate: regular rate Skin General skin exam: no rashes or lesions noted Neuro General: patient alert and patient oriented x3 Extrem General: normal to inspection Psych Mental Status: mental status grossly normal Speech and Movement: speech and movement normal Mood: congruent mood Affect: normal affect Objective Last Vital Signs Temp 37.7 C H 12/22/22 15:29 Pulse 71 12/22/22 15:29 Resp 19 12/22/22 15:29 BP 110/52 L 12/22/22 15:29 Pulse Ox 92 12/22/22 15:29 Laboratory Results - last 24 hr 12/22/22 12/22/22 12/22/22 06:43 06:43 12:28 WBC 14.84 H RBC 3.71 L Hgb 10.5 L Hct 33.5 L MCV 90 MCH 28.3 MCHC 31.3 L RDW 16.3 H Plt Count 265 MPV 10.2 Immature Gran % 0.3 Neutrophils % 85.0 Lymphocytes % 7.3 Monocytes % 6.9 Eosinophils % 0.3 Basophils % 0.2 Nucleated RBC % 0.0 Absolute Neutrophils 12.61 H Absolute Lymphocytes 1.08 L Absolute Monocytes 1.02 H Absolute Eosinophils 0.04 Absolute Basophils 0.03 Sodium 140 Potassium 3.2 L Chloride 104 Carbon Dioxide 26.1 Anion Gap 9.9 BUN 35 H Creatinine 1.5 H Est GFR (CKD-EPI 2020) 35.01 Glucose 95 Calcium 9.3 Urine Color Yellow Urine Clarity Clear Urine pH 6.0 Ur Specific [place] 1.015 Urine Protein 30 H Urine Ketones Negative Urine Blood Small H Urine Nitrite Negative Urine Bilirubin Negative Urine Urobilinogen 0.2 Ur Leukocyte Esterase Negative Urine RBC 3-5 H Urine WBC Negative Ur Epithelial Cells Moderate Urine Crystals Urine Bacteria Negative Urine Casts Negative Urine Mucus Negative Ur Culture Indicated? No Urine Glucose Negative Time Spent with Patient Time Spent with Patient: 25-34 minutes Time was spent: preparing to see the patient(eg.review tests), ordering medications,tests, procedures, referring, communicating with other health patient care associate, indepentently interpreting results, counseling the patient and care coordination
[2022-12-22] MEDS: Acetaminophen 325 MG TAB 650 MG PO (19:27)
[2022-12-22] MEDS: Normal Saline Flush 10 ML SYR IVP (19:28)
[2022-12-23] MEDS: Acetaminophen 325 MG TAB 650 MG PO (02:28)
[2022-12-23] MEDS: Albuterol 2.5 MG/3 ML INH SOLN VIAL UPD (02:29)
[2022-12-23 06:48] LABS: Abs Immature Grans 0.07 10^3/uL (0.0-0.06); Absolute Basophil Count 0.04 10^3/uL (0.0-0.2); Absolute Eosinophil Count 0.21 10^3/uL (0.0-0.7); Absolute Lymphocyte Count 1.14 10^3/uL (1.2-3.4); Absolute Monocyte Count 1.22 10^3/uL (0.1-0.8); Basophils % 0.3; Eosinophils % 1.5; HCT 31.6 % (36.0-46.0); HGB 9.8 g/dL (11.2-15.7); Immature Grans % 0.5; Lymphocytes % 8.3; MCV 90 fL (80-95); MPV 9.6 fL (8.0-11.0); Monocytes % 8.9; Neutrophils % 80.5; Platelet Count 212 10^3/uL (130-400); RDW 15.9 % (11.7-14.6); RDW-SD 52.9 fL
[2022-12-23 06:49] LABS: Absolute Neutrophil Count 11.03 10^3/uL (1.2-6.7)
[2022-12-23 07:01] VITALS: BP 120/56; PULSE 76; TEMP 36.1; O2SAT 97
[2022-12-23 07:32] LABS: Anion Gap 7.6 mmol/L (3-11); BUN 31 mg/dL (7-18); CO2 25.4 mmol/L (21.0-32.0); CREATININE 1.4 mg/dL (0.55-1.02); Calcium 8.9 mg/dL (8.5-10.1); Chloride 108 mmol/L (98-107); Estimated GFR 38.03 (mL/min/1.73m2); Glucose 105 mg/dL (74-106); Magnesium 1.8 mg/dL (1.8-2.4); Potassium 3.9 mmol/L (3.5-5.1); Sodium 141 mmol/L (136-145)
[2022-12-23 07:35] VITALS: O2SAT 98
[2022-12-23] MEDS: Umeclidinium 7 CAP INHALER IH (07:41)
[2022-12-23] MEDS: Budesonide/Formoterol 80/4.5 6.9 GM 60 PUFF INH IH (07:41)
[2022-12-23 08:04] VITALS: O2SAT 97
[2022-12-23] MEDS: Polyethylene Glycol 3350 17 GM PACKET PO (08:39)
[2022-12-23] MEDS: tiZANidine 4 MG TABLET PO (08:40)
[2022-12-23] MEDS: Sertraline 100 MG TAB PO (08:40)
[2022-12-23] MEDS: Docusate Sodium 100 MG CAP PO (08:40)
[2022-12-23] MEDS: Potassium Chloride 20 MEQ TABCR 40 MEQ PO (08:40)
[2022-12-23] MEDS: Rosuvastatin 20 MG TAB 40 MG PO (08:40)
[2022-12-23] MEDS: Pantoprazole 40 MG TABCR PO (08:40)
[2022-12-23 10:02] VITALS: O2SAT 93
--- NOTE | 2022-12-23 10:47 | PDOC.CMDIS ---
Date of service: 12/23/22 Time of Service: 10:47 LACE Index Scoring Tool Questions: Length of Stay (in days): 3 Was the patient admitted via the E.D.?: Yes Comorbidities: Cerebrovascular Disease, PVD, Congestive Heart Failure and Chronic Pulmonary Disease E.D. Visits: 5 Answers: Total Score: 15 Risk of Readmission: High Risk Care Management Discharge Plan Reason for Hospitalization: Shortness of breath, anemia, COPD exacerbation Discharge Plan: Kathleen will be discharged home with a resumption of home health services for SN,PT,OT and NURSES' ASSOCIATION EXECUTIVE DIRECTOR. She will follow up with community providers and plan of care as prescribed and will transport via [facility] coordinated by CM. Patient/Family Education Needs: Review of discharge instructions, limitations, activity, follow up plan, discuss Ask Me Three
--- NOTE | 2022-12-23 11:44 | W.PM.DS.N ---
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 She was found to be severely anemic with a hemoglobin of 6.0.? She was found to have exacerbation of COPD, she was given steroids and updraft with some improvement in her symptoms.?She also had hypokalemia 3.2, that was repleted. On her last work-up she did have an upper endoscopy that showed no source of bleeding or ulcer. She was admitted to the medical floor for exacerbation of COPD and anemia, with hemoglobin of 6.6. She was transfused with 2 units of blood and her hemoglobin stayed flat ~ 9-10. She had no oxygen requirement, kept her oxygen saturation above 90% with walking. She and her daughter would like her to have home oxygen. She does not qualify. Further work up for her anemia is recommended. Follow up with pulmonology. She is discharged to home with resumption of home health RN, PT, OT and CERTIFIED TOWER CLIMBER. She should have CBC and BMP checked early next week. Home Meds and New Rx's Prescriptions: Continued lisinopril-hydrochlorothiazide 20-25 mg tablet 1 tab PO DAILY Qty: 90 1RF Hold Instructions: hold until you follow up with your primary care provider pantoprazole 40 mg tablet,delayed release (DR/EC) 40 mg PO DAILY@0730 Qty: 90 3RF sertraline 100 mg tablet 100 mg PO DAILY Qty: 90 3RF albuterol sulfate 2.5 mg /3 mL (0.083 %) solution for nebulization 2.5 mg inhalation Q4H PRN (Reason: shortness of breath or wheezing) Qty: 180 0RF Centrum Silver Women 8 mg iron-400 mcg-300 mcg tablet 1 tab PO DAILY ketoconazole 2 % shampoo 1 applic topical .Twice a week PRN (Reason: seborrheic derm) Qty: 120 0RF Rx Instructions: Apply to wet scalp twice a week, leave on for 3-5 minutes, then rinse well. use for 2-4 weeks rosuvastatin 40 mg tablet 40 mg PO DAILY Qty: 90 3RF Incruse Ellipta 62.5 mcg/actuation blister with device 1 inh inhalation DAILY Qty: 30 12RF potassium chloride [K-Tab] 20 mEq tablet extended release 20 meq PO BID Qty: 180 4RF clopidogrel 75 mg tablet 75 mg PO DAILY Qty: 90 3RF mometasone 0.1 % Cream 0 g topical BID Qty: 0 0RF budesonide-formoterol [Symbicort] 80-4.5 mcg/actuation Hfa Aerosol Inhaler 2 puff inhalation BID Qty: 0 0RF docusate sodium [Colace] 100 mg Capsule 100 mg PO TID PRN PRNQty: 0 0RF tizanidine 4 mg tablet 4 mg PO BID Patient Comments: TAKE ONE TABLET BY MOUTH TWICE A DAY aspirin 81 mg tablet,delayed release (DR/EC) 81 mg PO DAILY Patient Comments: TAKE ONE TABLET BY MOUTH EVERY DAY albuterol sulfate 90 mcg/actuation HFA aerosol inhaler 2 puff inhalation 6XD PRNQty: 8.5 0RF No Action Inhaler, Assist Devices [Pocket Chamber] 1 ea miscellaneous DIRECTED Qty: 0 0RF Discharge Instructions Instructions: Hypokalemia (GEN), COPD (Chronic Obstructive Pulmonary Disease) (DC), Anemia (DC), Acute Respiratory Failure (IP) Stand Alone Forms: Nursing Discharge Form Referrals: Samir Casillas NP [Primary Care Provider] - 12/28/22 9:00 am (Keeep your Appointment you have set up on December 28 further work up / treatment for anemia is recommended) Lisa Mixon MD [ [facility] STAFF PHYSICIAN] - 01/06/23 9:30 am Activity:: Activity as Tolerated Equipment/Supplies:: No Equipment Needed Diet:: Low Sodium Discharge Orders Discharge Orders: Discharge Order (Routine); Ordered 12/23/22 Ordered By: Olivia Castro Other Ambulatory Orders: Basic Metabolic Panel (Routine) Timeframe: 20221228 Location: None Selected Ordered By: Olivia Castro Complete Blood Count w/Diff (Routine) Timeframe: 20221228 Location: None Selected Ordered By: Olivia Castro Discharge Data Discharge Date/Time-TO BE ENTERED AT DEPARTURE: 12/23/22 12:46 DS: Summary Time Spent with Patient providing and/or coordinating discharge services: Greater than 30 minutes Status at Discharge Functional status at discharge: uses cane/walker Overall status at discharge: patient is back to baseline Mental Status: mental status grossly normal Speech and Movement: speech and movement normal Mood: congruent mood Affect: normal affect Exam Const General: no acute distress Orientation: alert HENMT Head: normal to inspection Ears: external ears normal General nose exam: external nose normal Mouth: moist mucous membranes Eyes General: appearance normal, both eyes and all related structures Neck Neck: normal visual inspection Resp Auscultation: wheezes Cardio Jugular venous pressure: no JVD Rate: regular rate Skin General skin exam: no rashes or lesions noted Neuro General: patient alert and patient oriented x3 Extrem General: normal to inspection Psych Mental Status: mental status grossly normal Speech and Movement: speech and movement normal Mood: congruent mood Affect: normal affect DS: Data Vitals/I&O Vitals and I&O: Vital Signs Temperature 36.1 C L 12/23/22 07:01 Temperature Source Tympanic 12/23/22 07:01 Pulse 76 12/23/22 07:01 Pulse Rhythm Regular 12/23/22 07:45 Pulse 98 H 12/20/22 16:45 Respiratory Rate 18 12/22/22 23:15 Respiratory Effort Normal, Non-Labored 12/23/22 07:45 Respiratory Depth Normal 12/23/22 07:45 Respiratory Pattern Normal 12/23/22 07:45 Blood Pressure 120/56 L 12/23/22 07:01 Blood Pressure Mean 61 12/20/22 16:45 Blood Pressure Position Sitting 12/20/22 10:49 Pulse Oximetry 93 12/23/22 10:02 Oxygen Delivery Method Room Air 12/23/22 10:02 Oxygen Flow Rate 0 12/23/22 10:02 Pain Level 3 12/23/22 07:01 Comment Nurse Selwyn aware 12/21/22 11:11 Intake & Output 12/22/22 12/22/22 12/23/22 11:59 23:59 11:59 Output Total 350 / 700 350 / 700 275 / 275 Balance -350 / -700 -350 / -700 -275 / -275 Weight 50.3 kg Output: Urine 350 / 700 350 / 700 275 / 275 Other: Urine Color Yellow Yellow Yellow Urine Appearance Clear Clear Clear Urine Odor Normal Comment toilet insert Voiding Methods Toilet Data Completed and Pending Labs on day of discharge: Labs from last 24 hours 12/23/22 12/23/22 12/22/22 06:25 06:25 12:28 WBC 13.70 H RBC 3.50 L Hgb 9.8 L Hct 31.6 L MCV 90 MCH 28.0 MCHC 31.0 L RDW 15.9 H Plt Count 212 MPV 9.6 Immature Gran % 0.5 Neutrophils % 80.5 Lymphocytes % 8.3 Monocytes % 8.9 Eosinophils % 1.5 Basophils % 0.3 Nucleated RBC % 0.0 Absolute Neutrophils 11.03 H Absolute Lymphocytes 1.14 L Absolute Monocytes 1.22 H Absolute Eosinophils 0.21 Absolute Basophils 0.04 Sodium 141 Potassium 3.9 Chloride 108 H Carbon Dioxide 25.4 Anion Gap 7.6 BUN 31 H Creatinine 1.4 H Est GFR (CKD-EPI 2020) 38.03 Glucose 105 Calcium 8.9 Magnesium 1.8 Urine Color Yellow Urine Clarity Clear Urine pH 6.0 Ur Specific Preston 1.015 Urine Protein 30 H Urine Ketones Negative Urine Blood Small H Urine Nitrite Negative Urine Bilirubin Negative Urine Urobilinogen 0.2 Ur Leukocyte Esterase Negative Urine RBC 3-5 H Urine WBC Negative Ur Epithelial Cells Moderate Urine Crystals Urine Bacteria Negative Urine Casts Negative Urine Mucus Negative Ur Culture Indicated? No Urine Glucose Negative Preliminary micro results at discharge 12/20/22 11:52 Blood Culture - Preliminary Blood NO GROWTH 48 HOURS 12/20/22 11:19 Blood Culture - Preliminary Blood NO GROWTH 48 HOURS PFSH All Active Problems (Updated 12/24/22 @ 00:04 by KELLI MEDRANO) Hypokalemia (Acute) Chronic obstructive lung disease (Acute) PFT'S 2009 FEV 1.15=59% continues to smoke Constipation (Chronic 11/14/17) Essential hypertension (Chronic 03/30/13) Lumbago (Chronic 05/10/13) Peripheral vascular disease (Acute) Jul 2014 [facility] aorto bifem bypass LEFT ILIAC STENT [facility] 03/2010 Polyp of colon (Acute) tubular adenoma Shoulder arthralgia (Chronic) Carotid stenosis, left (Acute) 50-69% stenosis 04/2022; complete obstruction right internal carotid. Grief reaction (Chronic) Spouse 08/13/21 passed CVA (cerebral vascular accident) (Chronic) Neuro est. between 04/2020-11/2021 Counseling regarding advanced directives and goals of care (Acute) Dilated bile duct (Acute ~02/2022) s/p ERCP [facility], 10mm dilation, no masses. Due repeat MRI in 10/2022. 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) Pulmonary hypertension (Acute) Pulmonary nodules/lesions, multiple (Acute) Anemia (Chronic) Pleural effusion (Acute) Pleural effusion (Acute) Congestive heart failure (Chronic) Weakness (Acute) Slurred speech (Acute) Medical History Anxiety about health Disorder of ear, left Diverticulitis of colon H/O SIGMOID COLECTOMY Hand pain, left Hyperlipidemia Perichondritis Seizures Smoker (10/19/16) Surgical History Extraction of cataract B/L 04/2013 Ligation of fallopian tube Rotator Cuff Repair RIGHT S/P partial colectomy Trigger Finger release WRIST/THUMB SURGERY LEFT THUMB LEFT WRIST RIGHT THUMB Family History Mother Diabetes Essential hypertension Stroke Father , 55 Heart disease Stroke Brother , 71 Complications from surgery No problems noted. Son No problems noted. Son No problems noted. Daughter No problems noted. Daughter No problems noted. Social History Smoking/Tobacco Use Status: Current every day Tobacco Type: cigarettes Smoking packs per day: 0.5 Smoking cigarettes per day: 10.0 Years smoked: 63 Smoking pack-years: 31.50 Tobacco: How many years used: 63 Quit status: considering quitting Second Hand Exposure: Yes Smoking risk assessment performed?: Yes Alcohol Intake: never Drug use: Rarely Counseling given: No Counseling provided: none Caregiver/Support person: No Household members: none Housing: house Number of Children: 4 Communication Needs: Hard of Hearing Do you need help understanding health information?: Rarely Pets and animals: Yes Pets and animals: dog(s) Sexually active: No Do you think of yourself as: straight/heterosexual Current gender identity: female What is your relationship status?: How often do you talk on the phone with friends or family?: three or more times per week Do you belong to any clubs or organized social groups?: no Panel score (0-1 are the most socially isolated patients): 1 What type of physical activity do you participate in: none Darlene/Taoist: No preference Special darlene needs: No Seatbelt use: always Helmet use: No Drive intox or ride w/intox full service vending driver: No Do you feel safe at home: Yes Do you feel safe in your relationship?: Yes Time Spent with Patient Time Spent with Patient: 45-69 minutes Time was spent: preparing to see the patient(eg.review tests), ordering medications,tests, procedures, referring, communicating with other health veterinarian laboratory animal care, indepentently interpreting results, counseling the patient and care coordination
--- NOTE | 2022-12-30 13:48 | INDS_ITS ---
Date of service: 12/23/22 PT Notes Visit Reasons: Hypoxic Resp Failure Physical Therapy Inpatient Discharge Summary Date: 12/23/2022 Date of service: 12/22/2022 only This is a clinical summary of care provided for the duration of dates listed above. No charge was made in the completion of this documentation. Referring Doctor: Sandra Modi,? EXECUTIVE LEGAL SECRETARY PT Orders: PT CONSULT: Limited ability Precautions: Fall. Standard. Activity as tolerated.? L-sided hemiparesis from previous stroke. Patient Profile/Admitting Diagnosis:? Kathleen is a 82-year-old female who presented to the ED on 12/20/2022 due to slip and fall from chair,? shortness of breath, worsening of cough.? Patient is admitted for management of COPD exacerbation, acute CHF, acute bronchitis, essential hypertension, pulmonary nodules, and late effects of ischemic CVA. PMHX: All Active Problems?(Updated 12/21/22 @ 14:04 by Sandra Moid, ANDREA) Hypokalemia (Acute) Chronic obstructive lung disease (Acute) PFT'S 2009 FEV 1.15=59% continues to smoke Constipation (Chronic 11/14/17) Essential hypertension (Chronic 03/30/13) Lumbago (Chronic 05/10/13) Peripheral vascular disease (Acute) Jul 2014 [facility] [place] aorto bifem bypass LEFT ILIAC STENT [facility] [place] 03/2010 Polyp of colon (Acute) tubular adenoma Shoulder arthralgia (Chronic) Carotid stenosis, left (Acute) 50-69% stenosis 04/2022; complete obstruction right internal carotid. Grief reaction (Chronic) Spouse? 08/13/21 passed CVA (cerebral vascular accident) (Chronic) Neuro est. between 04/2020-11/2021 Counseling regarding advanced directives and goals of care (Acute) Dilated bile duct (Acute ~02/2022) s/p ERCP [facility], 10mm dilation, no masses.? Due repeat MRI in 10/2022. 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) Pulmonary hypertension (Acute) Pulmonary nodules/lesions, multiple (Acute) Anemia (Chronic) Pleural effusion (Acute) Pleural effusion (Acute) Congestive heart failure (Chronic) Weakness (Acute) Slurred speech (Acute) Shortness of breath (Acute) Medical History Anxiety about health Disorder of ear, left Diverticulitis of colon H/O SIGMOID COLECTOMY Hand pain, left Hyperlipidemia Perichondritis Seizures Smoker (10/19/16) Surgical History? Extraction of cataract B/L 04/2013 Ligation of fallopian tube Rotator Cuff Repair RIGHT S/P partial colectomy Trigger Finger release WRIST/THUMB SURGERY LEFT THUMB LEFT WRIST RIGHT THUMB Social History/Home Situation: Patient lives alone in a private home.? States that she has a son and a daughter who live close by.? Independent with all mobility ADLs using hemiwalker.? Used to be able to walk up to 30 feet safely.? Rides RCT for her grocery shopping and doctor's appointments. Equipment Owned/DME: Hemiwalker, SPC, emergency alert device Subjective: NT. See most recent CORPORATE DIRECTOR OF HUMAN RESOURCES notes. Objective: General Observation: NT. See most recent CORPORATE DIRECTOR OF HUMAN RESOURCES notes. Mental Status: NT. See most recent CORPORATE DIRECTOR OF HUMAN RESOURCES notes. Pain: NT. See most recent CORPORATE DIRECTOR OF HUMAN RESOURCES notes. ROM: Right Upper Extremity: ? Shoulder Flexion WFL. Shoulder abduction WFL. Elbow flexion WFL. Wrist flexion WFL. Functional opening and closing of hand WFL. Left Upper Extremity:? Shoulder Flexion allows up to 60 degrees with pain report at EOR. Shoulder abduction allows up to 40 degrees with pain report at EOR. Elbow flexion allows up to 90 degrees. Wrist flexion less than 25% of AROM. Functional opening and closing of hand limited. Right Lower Extremity: Hip flexion WFL. Hip abduction WFL. Knee flexion WFL. Ankle dorsiflexion WFL. Ankle plantarflexion WFL. Left Lower Extremity: Hip flexion allows up to 90 degrees. Hip abduction allows up to 20 degrees.? Knee flexion 30 degrees to 90 degrees. Ankle dorsiflexion to neutral only. Ankle plantarflexion about 10 degrees. Strength: Right Upper Extremity: Shoulder flexors 4-/5. Shoulder abductors 4-/5. Elbow flexors 4-/5. Elbow extensors 4-/5. Sales Merchandising Specialist weak. Left Upper Extremity: Shoulder flexors 3-/5. Shoulder abductors 3-/5. Elbow flexors 3-/5. Elbow extensors 3-/5. Sales Merchandising Specialist weak. Right Lower Extremity: Hip flexors 4-/5. Hip abductors 4-/5. Knee flexors 4-/5. Knee extensors 4-/5. Ankle dorsiflexors 4-/5. Ankle plantarflexors 4-/5. Left Lower Extremity: Hip flexors 3-/5. Hip abductors 3-/5. Knee flexors 3-/5. Knee extensors 2-/5. Ankle dorsiflexors 2-/5. Ankle plantarflexors 3-/5. Bed Mobility/Transfers: Sit to stand with contact guard assist with hemiwalker on R Stand to sit with contact guard assist? with hemiwalker on R Gait: 20 feet requiring contact guard assist using hemiwalker.? Pre-existing L hemiparetic gait noted.? L UE in abnormal flexion synergy.? L LE in abnormal extensor synergy with decreased hip and knee flexion. Increased L UE/LE tone with effort.? Step height and width asymmetric.? Mild circumduction seen on L LE.? Required moderate verbal cueing to maximize awareness on the L due to presistent hemineglect. Balance: Static Sitting: Good Dynamic Sitting: Fair Static Standing: Fair Dynamic Standing: Fair NEURO: Spasticity/Hypertonicity in L UE/LE 4-stage Balance Test deferred Abnormal flexion synergy in L UE,? extension synergy in L LE Babinski Reflex present in L LE L hemineglect in L UE/LE (mild) Assessment: Awareness of midline impaired.? Activity tolerance reduced due to COPD exacerbation.? Chronic pain in L UE limiting mobility.? Hemiparetic gait pattern increasing risk for falls. ? Patient presents with clinical signs and symptoms consistent with current/admitting diagnoses that have resulted to mobility limitations, gait instability, generalized weakness, and overall ADL decline as demonstrated by the following impairment level findings: 1.? Decreased strength to L UE/LE major muscle groups 2.? Impaired sitting/standing balance 3.? Impaired activity tolerance 4.? Limitation of joint range of motion in L UE/LE 5.? Shortness of breath 6.? Pain in L shoulder from L rotator cuff tear and pre-existing L sided- hemiparesis 7.? Persistent L-sided neglect Impairments are contributing to the following functional limitations: 1.? Difficulty with ambulation without assistive device and physical assistance 2.? Increased completion time for mobility ADL performance 3.? Increased risk for falls 4.? Difficulty with managing steps alone safely Goals: Goals X1 week 1. Supine-Sit independent NOT MET 2. Sit-Supine independent NOT MET 3. Sit-Stand independent NOT MET 4. Stand-Sit independent with hemiwalker NOT MET 5. Bed-Chair independent with hemiwalker NOT MET 6. Chair-Bed independent with hemiwalker NOT MET 7. Independent gait on level surface with use of hemiwalker for at least 100 feet without report of pain nor dyspnea NOT MET 8. Independent stair negotiation while holding onto R rail rails for at least 3 steps without report of pain nor dyspnea NOT MET 9. Independent with home exercise program NOT MET 10. Good static and dynamic standing balance/tolerance NOT MET DISCHARGE RECOMMENDATIONS: [] ? Home with no services [] [] ? Home with services [specify] [] ? Home with outpatient PT [] [] ? SNF for continued rehabilitation [] ? Group Home Care [] [] ? SNF versus LTC based on ability to participate and progress [] [X]? HH PT vs.? SNF based on ability to progress toward goal. TREATMENT CODE/TIME: OK Thank you for the opportunity to participate in the care of this patient. Rebecca Regan PT, DPT, CLT [facility] [place], [place]
== END 2022-12-23 12:46 | disposition home or self-care (01) | DRG 202 ==
LOC: ER 15:44 → MS 17:06
PROVIDERS: Internal Medicine; Nurse Practitioner Acute Care; Nurse Practitioner Family; Admitting Provider Family Medicine; Emergency Provider Emergency Medicine; PCP Nurse Practitioner Family; Visit Provider Family Medicine
DX: J41.0 Simple chronic bronchitis (principal); I69.354 Hemiplegia and hemiparesis following cerebral infarction affecting left non-dominant side; D64.9 Anemia, unspecified; R06.02 Shortness of breath; I27.20 Pulmonary hypertension, unspecified; I50.9 Heart failure, unspecified; I08.3 Combined rheumatic disorders of mitral, aortic and tricuspid valves; I11.0 Hypertensive heart disease with heart failure; R91.8 Other nonspecific abnormal finding of lung field; E87.6 Hypokalemia; K59.09 Other constipation; I73.9 Peripheral vascular disease, unspecified; M75.102 Unspecified rotator cuff tear or rupture of left shoulder, not specified as traumatic; I65.21 Occlusion and stenosis of right carotid artery; E78.5 Hyperlipidemia, unspecified; Z90.49 Acquired absence of other specified parts of digestive tract; F17.210 Nicotine dependence, cigarettes, uncomplicated
CPT/HCPCS: 36415; 36430; 80048; 80053; 82805; 84145; 86850; 86900; 86901; 86920; 87040; 87635; 93005; 94618; 94640; 97162; 97530; 71046; 72220; 81003; 81015; 83735; 83880; 84443; 84484; 85014; 85018; 85025; 85610; 85730; 93010; 94664; 94667; 94668; 94760; 99223; 99232; 99233; 99239; J1940; J2930; J3490; J7613; J7620; P9016

== ENCOUNTER 2023-01-16 14:21 | Emergency (ER) | payer MEDICARE, OTHER, SELFPAY ==
[2023-01-16] VITALS (110 sets, daily range): BP systolic 81–189; BP diastolic 29–129; PULSE 60–93; RESP 13–29; TEMP 36.8–37.1; O2SAT 90–100
[2023-01-16] MEDS: Norepinephrine in D5W 8 MG/250 ML BAG 9.375 MG IV (14:22)
--- NOTE | 2023-01-16 14:30 | RT.EKG_ITS ---
APPROVED REPORT Exam: Resting ECG Reason for Exam: shock Patient Location: E HR:68 bpm ECG Measurements Heart Rate 68 AXIS OR 154 P 93 QRSd 86 QRS 18 QT 443 T 80 QTc 472 Conclusion Sinus rhythm...normal P axis, V-rate 60- [address] segment or T wave abnormalities to suggest occlusive TN
--- NOTE | 2023-01-16 14:43 | W.ED.GENAD ---
Discharge Plan Discharge Details Chief Complaint: [id number] Primary Care Provider: Samir Casillas ED Provider: Ana Mckinney Home Meds and New Rx's Prescriptions: No Action lisinopril-hydrochlorothiazide 20-25 mg tablet 1 tab PO DAILY Qty: 90 1RF Hold Instructions: hold until you follow up with your primary care provider pantoprazole 40 mg tablet,delayed release (DR/EC) 40 mg PO DAILY@0730 Qty: 90 3RF sertraline 100 mg tablet 100 mg PO DAILY Qty: 90 3RF Centrum Silver Women 8 mg iron-400 mcg-300 mcg tablet 1 tab PO DAILY ketoconazole 2 % shampoo 1 applic topical .Twice a week PRN (Reason: seborrheic derm) Qty: 120 0RF Rx Instructions: Apply to wet scalp twice a week, leave on for 3-5 minutes, then rinse well. use for 2-4 weeks rosuvastatin 40 mg tablet 40 mg PO DAILY Qty: 90 3RF Incruse Ellipta 62.5 mcg/actuation blister with device 1 inh inhalation DAILY Qty: 30 12RF potassium chloride [K-Tab] 20 mEq tablet extended release 20 meq PO BID Qty: 180 4RF clopidogrel 75 mg tablet 75 mg PO DAILY Qty: 90 3RF ipratropium-albuterol 0.5 mg-3 mg(2.5 mg base)/3 mL solution for nebulization 3 ml inhalation Q4H PRN (Reason: wheezing) Qty: 540 8RF mometasone 0.1 % Cream 0 g topical BID Qty: 0 0RF budesonide-formoterol [Symbicort] 80-4.5 mcg/actuation Hfa Aerosol Inhaler 2 puff inhalation BID Qty: 0 0RF docusate sodium [Colace] 100 mg Capsule 100 mg PO TID PRN PRNQty: 0 0RF Inhaler, Assist Devices [Pocket Chamber] 1 ea miscellaneous DIRECTED Qty: 0 0RF tizanidine 4 mg tablet 4 mg PO BID Patient Comments: TAKE ONE TABLET BY MOUTH TWICE A DAY aspirin 81 mg tablet,delayed release (DR/EC) 81 mg PO DAILY Patient Comments: TAKE ONE TABLET BY MOUTH EVERY DAY albuterol sulfate 90 mcg/actuation HFA aerosol inhaler 2 puff inhalation 6XD PRNQty: 8.5 0RF Medical Decision Making 82yo F with hx of CVA on plavix, left hemiparesis, CHF/PHTN, COPD, presenting for syncope. History from patient, EMS, and record review including discharge summary recent [facility] admission 12/20-12/23. Hospital admission for anemia, Hg 6.0 improved to 9-10 range after 2U PRBCs with no source of bleeding identified, discharged home in stable condition. Today passed out while seated, hypotensive for EMS and given 1.5L NS. On arrival SBP in 70's, HR in 60's- 70's (no compensatory tachycardia, unclear why, patient does not appear to be on beta blockade). Pale conjuctiva on exam, no evident source of bleeding. Baseline left sided deficits and anisorcia present. Treating for presumed hemmorghaic shock; given 1U emergent release PRBCs and started on peripheral levophed, titrated up to 10mcg/min to maintain MAP >65. Not overtly volume overloaded on exam; would not further fluid resuscitate given CHF as well as concern for dilutional coagulapathy. Less likely septic shock; will send blood and urine cultures and lactic. While 1st unit infusing, had approximately 45 seconds of generalized tonic-clonic activity which terminated without intervention, no post ictal period. ? seizure vs convulsive syncope. After completion of 1st unit of PRBCs, able to begin titrating down on levophed. CBC resulted with Hg 4.5; will give additional units of PRBCs as well as plasma. Labs ordered and reviewed; CBC & CMP with no additional actionable abnormalities. Troponin 82, likely T2 NSTEMI (certainly no role for anticoagulation here), will trend; EKG sinus rhythm with no ST segment or T wave abnormalities to suggest occlusive CA. CTs ordered and independently reviewed; on my view CT head with no acute bleed, suggestion of old infarcts on right, CTA CAP with no bleeding evident in chest, abdomen, or pelvis, agree with radiology reads below. Patient able to be weaned off levophed after 3rd unit of PRBCs; received total of 3U PRBCs 2 FFP. Repeat CBC pending, delta troponin stable at 82. WIll hold on 4th unit of PRBCs for now pending repeat Hg. Accepted to [facility] under Dr. Herrera, awaiting callback from bed placement. Imaging Data Radiologic Study: Imaging: CT Scan Radiologist's impression: IMPRESSION: 1. Significant diffuse atherosclerotic calcification producing moderate stenosis of the origin of the celiac artery and bilateral renal arteries as well as mild stenosis of the SMA.? No aortic aneurysm or dissection.? 2. Patent aortobifemoral bypass graft with occlusion of the [place] iliac arteries. 3.? Significant gallbladder wall thickening without evidence of calcified gallstones. 4.? Minimal ascites and chronic osseous changes as noted Radiologic Study #2: Imaging: CT Scan Radiologist's impression: IMPRESSION: No acute intracranial abnormality.? 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 Lab Data Lab results reviewed: Yes I reviewed the patient's lab results. Labs: 01/16/23 15:12 Urine - Voided Urine Culture - Pending 01/16/23 14:35 Blood Blood Culture - Pending 01/16/23 14:35 Blood Blood Culture - Pending 01/16/23 14:35 Blood Blood Culture - Pending Laboratory Tests Range/Units 01/16/23 01/16/23 01/16/23 14:26 14:26 14:26 WBC (4.4-10.8) 10^3/uL RBC (3.93-5.22) 10^6/uL Hgb (11.2-15.7) g/dL Hct (36.0-46.0) % MCV (80-95) fL MCH (27.0-33.0) pg MCHC (32.0-36.0) % RDW (11.7-14.6) % Plt Count (130-400) 10^3/uL MPV (8.0-11.0) fL PT (9.3-11.0) sec 11.8 H INR (0.9-1.1) 1.2 H APTT (21.5-31.9) sec 21.0 L Sodium (136-145) mmol/L 143 Potassium (3.5-5.1) mmol/L 3.6 Chloride (98-107) mmol/L 114 H Carbon Dioxide (21.0-32.0) mmol/L 22.8 Anion Gap (3-11) mmol/L 6.2 BUN (7-18) mg/dL 25 H Creatinine (0.55-1.02) mg/dL 1.3 H Est GFR (CKD-EPI 2020) (mL/min/1.73m2) 41.57 Glucose (74-106) mg/dL 132 H Calcium (8.5-10.1) mg/dL 7.8 L Total Bilirubin (0.2-1.0) mg/dL 0.3 AST (15-37) U/L 63 H ALT (14-59) U/L 47 Alkaline Phosphatase (46-116) U/L 95 Troponin I (<or=60) ng/L Total Protein (6.4-8.2) g/dL 4.8 L Albumin (3.4-5.0) g/dL 2.3 L Urine Color (Yellow) Urine Clarity (Clear) Urine pH (5-8) Ur Specific [place] (1.005-1.025) Urine Protein (Negative) mg/dL Urine Ketones (Negative) mg/dL Urine Blood (Negative) Urine Nitrite (Negative) Urine Bilirubin (Negative) Urine Urobilinogen (Up to 0.2) mg/dL Ur Leukocyte Esterase (Negative) Urine RBC (0-2) HPF Urine WBC (0-5) HPF Ur Epithelial Cells (Negative) HPF Urine Crystals (Negative) HPF Urine Bacteria (Negative) HPF Urine Casts (Negative) LPF Urine Mucus (Negative) Urine Other (Negative) Ur Culture Indicated? Urine Glucose (Negative) mg/dL Patient ABO/Rh O Positive Antibody Screen NEGATIVE Crossmatch See Detail Range/Units 01/16/23 01/16/23 01/16/23 14:46 15:11 15:12 WBC (4.4-10.8) 10^3/uL 5.89 RBC (3.93-5.22) 10^6/uL 1.81 L Hgb (11.2-15.7) g/dL 4.5 L* Hct (36.0-46.0) % 15.8 L* MCV (80-95) fL 87 MCH (27.0-33.0) pg 24.9 L MCHC (32.0-36.0) % 28.5 L RDW (11.7-14.6) % 16.8 H Plt Count (130-400) 10^3/uL 205 MPV (8.0-11.0) fL 9.9 PT (9.3-11.0) sec INR (0.9-1.1) APTT (21.5-31.9) sec Sodium (136-145) mmol/L Potassium (3.5-5.1) mmol/L Chloride (98-107) mmol/L Carbon Dioxide (21.0-32.0) mmol/L Anion Gap (3-11) mmol/L BUN (7-18) mg/dL Creatinine (0.55-1.02) mg/dL Est GFR (CKD-EPI 2020) (mL/min/1.73m2) Glucose (74-106) mg/dL Calcium (8.5-10.1) mg/dL Total Bilirubin (0.2-1.0) mg/dL AST (15-37) U/L ALT (14-59) U/L Alkaline Phosphatase (46-116) U/L Troponin I (<or=60) ng/L 82 H* Total Protein (6.4-8.2) g/dL Albumin (3.4-5.0) g/dL Urine Color (Yellow) Yellow Urine Clarity (Clear) Clear Urine pH (5-8) 6.0 Ur Specific [place] (1.005-1.025) 1.015 Urine Protein (Negative) mg/dL 100 H Urine Ketones (Negative) mg/dL Trace H Urine Blood (Negative) Negative Urine Nitrite (Negative) Negative Urine Bilirubin (Negative) Negative Urine Urobilinogen (Up to 0.2) mg/dL 2.0 H Ur Leukocyte Esterase (Negative) Trace H Urine RBC (0-2) HPF 0-2 Urine WBC (0-5) HPF 3-5 Ur Epithelial Cells (Negative) HPF Moderate Urine Crystals (Negative) HPF Negative Urine Bacteria (Negative) HPF Few Urine Casts (Negative) LPF 0-2 Hyaline Urine Mucus (Negative) Trace Urine Other (Negative) Rare Renal Ur Culture Indicated? C&S Done As Ordered Urine Glucose (Negative) mg/dL Negative Patient ABO/Rh Antibody Screen Crossmatch HPI General Date/Time Provider Initiated Documentation: 01/16/23 14:35. Limitations to Documentation: no limitations. Information obtained by: patient, family and EMS. HPI Narrative: 82yo F with hx of CVA on plavix, left hemiparesis, CHF/PHTN, COPD, presenting for syncope. History from patient, EMS, and record review including discharge summary recent [facility] admission 12/20-12/23. Today patient was sitting eating with family, passed out while seated. No fall or head strike. Per EMS found with SBP in 50's on arrival, improved to 70's en-route with 1.5L NS. Per EMS baseline anisorica and left sided deficits. Was in her usual state of health this morning . Patient reports feeling bad, denies chest pain, shortness of breath, new numbness/tingling/weakness. Record review shows recent admission for anemia with Hg of 6.0, received 2 units of PRBCs and improved to 9-10 range. No source of bleeding identified during that admission, discharged home. Today again with no history of bleeding; no hematemesis, epistaxis, melena, bloody stool, etc. Related Data Home Medications Medication Instructions Recorded Confirmed multivit with 1 tab PO DAILY 07/18/20 01/16/23 [id number]-CE-lutein 8 mg iron-400 mcg-300 mcg tablet (Centrum Silver Women) lisinopril 20 1 tab PO DAILY #90 tabs 05/11/22 01/16/23 mg-hydrochlorothiazide 25 mg tablet ketoconazole 2 % shampoo 1 applic topical .Twice a week PRN 06/21/22 01/16/23 seborrheic derm #120 mL aspirin 81 mg tablet,delayed 81 mg PO DAILY 09/23/22 01/16/23 release tizanidine 4 mg tablet 4 mg PO BID 09/23/22 01/16/23 albuterol sulfate 90 mcg/actuation 2 puff inhalation 6XD PRN #8.5 09/27/22 01/16/23 aerosol inhaler grams umeclidinium 62.5 mcg/actuation 1 inh inhalation DAILY #30 ea 10/06/22 01/16/23 blister powder for inhalation (Incruse Ellipta) Inhaler, Assist Devices [Pocket 1 ea miscellaneous DIRECTED ##0 10/13/22 01/16/23 Chamber] budesonide-formoterol HFA 80 2 puff inhalation BID #0 grams 10/13/22 01/16/23 mcg-4.5 mcg/actuation aerosol inhaler (Symbicort) docusate sodium 100 mg capsule 100 mg PO TID PRN PRN #0 caps 10/13/22 01/16/23 (Colace) mometasone 0.1 % topical cream 0 g topical BID #0 grams 10/13/22 01/16/23 pantoprazole 40 mg tablet,delayed 40 mg PO DAILY@0730 #90 tabs 11/27/22 01/16/23 release rosuvastatin 40 mg tablet 40 mg PO DAILY #90 tabs 11/27/22 01/16/23 sertraline 100 mg tablet 100 mg PO DAILY #90 tabs 11/27/22 01/16/23 potassium chloride 20 mEq 20 meq PO BID #180 tabs 12/06/22 01/16/23 tablet,extended release (K-Tab) clopidogrel 75 mg tablet 75 mg PO DAILY #90 tabs 12/15/22 01/16/23 ipratropium 0.5 mg-albuterol 3 mg 3 ml inhalation Q4H PRN wheezing 01/07/23 01/16/23 (2.5 mg base)/3 mL nebulization #540 mL soln Previous Rx's Medication Instructions Recorded lisinopril 20 1 tab PO DAILY #90 tabs 05/11/22 mg-hydrochlorothiazide 25 mg tablet ketoconazole 2 % shampoo 1 applic topical .Twice a week PRN 06/21/22 seborrheic derm #120 mL albuterol sulfate 90 mcg/actuation 2 puff inhalation 6XD PRN #8.5 09/27/22 aerosol inhaler grams umeclidinium 62.5 mcg/actuation 1 inh inhalation DAILY #30 ea 10/06/22 blister powder for inhalation (Incruse Ellipta) Inhaler, Assist Devices [Pocket 1 ea miscellaneous DIRECTED ##0 10/13/22 Chamber] budesonide-formoterol HFA 80 2 puff inhalation BID #0 grams 10/13/22 mcg-4.5 mcg/actuation aerosol inhaler (Symbicort) docusate sodium 100 mg capsule 100 mg PO TID PRN PRN #0 caps 10/13/22 (Colace) mometasone 0.1 % topical cream 0 g topical BID #0 grams 10/13/22 pantoprazole 40 mg tablet,delayed 40 mg PO DAILY@0730 #90 tabs 11/27/22 release rosuvastatin 40 mg tablet 40 mg PO DAILY #90 tabs 11/27/22 sertraline 100 mg tablet 100 mg PO DAILY #90 tabs 11/27/22 potassium chloride 20 mEq 20 meq PO BID #180 tabs 12/06/22 tablet,extended release (K-Tab) clopidogrel 75 mg tablet 75 mg PO DAILY #90 tabs 12/15/22 ipratropium 0.5 mg-albuterol 3 mg 3 ml inhalation Q4H PRN wheezing 01/07/23 (2.5 mg base)/3 mL nebulization #540 mL soln Allergies Allergy/AdvReac Type Severity Reaction Status Date / Time baclofen AdvReac Intermediate mental Verified 01/06/23 10:00 status changes General Stated Complaint: [id number] IFTIKHAR: 1 Review of Systems Narrative: see HPI PFSH All Active Problems (Updated 01/08/23 @ 00:01 by KELLI MEDRANO) Former cigarette smoker (Acute) Chronic obstructive lung disease (Acute) PFT'S 2009 FEV 1.15=59% continues to smoke Constipation (Chronic 11/14/17) Lumbago (Chronic 05/10/13) Peripheral vascular disease (Acute) Jul 2014 [facility] aorto bifem bypass LEFT ILIAC STENT [facility] 03/2010 Polyp of colon (Acute) tubular adenoma Shoulder arthralgia (Chronic) Carotid stenosis, left (Acute) 50-69% stenosis 04/2022; complete obstruction right internal carotid. Grief reaction (Chronic) Spouse 08/13/21 passed CVA (cerebral vascular accident) (Chronic) Neuro est. between 04/2020-11/2021 Counseling regarding advanced directives and goals of care (Acute) Dilated bile duct (Acute ~02/2022) s/p ERCP [facility], 10mm dilation, no masses. Due repeat MRI in 10/2022. Left rotator cuff tear arthropathy (Chronic) 40 mg Depo-Medrol injection: 04/13/2022 Nail dystrophy (Acute) Left upper quadrant abdominal pain (Acute) Seborrheic dermatitis of scalp (Acute) Productive cough (Acute) History of tobacco abuse (Acute) Right carotid artery occlusion (Acute) Occlusion of right vertebral artery (Acute) Left hemiparesis (Acute) Pulmonary hypertension (Acute) Pulmonary nodules/lesions, multiple (Acute) Anemia (Chronic) Pleural effusion (Acute) Congestive heart failure (Chronic) Medical History Anxiety about health Disorder of ear, left Diverticulitis of colon H/O SIGMOID COLECTOMY Essential hypertension (03/30/13) Hand pain, left Hyperlipidemia Ischemic cerebrovascular accident (CVA) due to atherosclerosis of large extracranial artery Perichondritis Pleural effusion Seizures Smoker (10/19/16) Surgical History Extraction of cataract B/L 04/2013 Ligation of fallopian tube Rotator Cuff Repair RIGHT S/P partial colectomy Trigger Finger release WRIST/THUMB SURGERY LEFT THUMB LEFT WRIST RIGHT THUMB Family History Mother Diabetes Essential hypertension Stroke Father , 55 Heart disease Stroke Brother , 71 Complications from surgery No problems noted. Son No problems noted. Son No problems noted. Daughter No problems noted. Daughter No problems noted. Social History (Updated 01/06/23 @ 10:12 by Stephanie Hays) Smoking/Tobacco Use Status: Former Tobacco Use tobacco type: cigarettes Quit Date: 08/04/22 Tobacco: How many years used: 63 Quit status: considering quitting Second Hand Exposure: Yes Smoking risk assessment performed?: Yes Alcohol Intake: never Drug use: Rarely Counseling given: No Counseling provided: none Caregiver/Support person: No Household members: none Housing: house Number of Children: 4 Communication Needs: Hard of Hearing Do you need help understanding health information?: Rarely Pets and animals: Yes Pets and animals: dog(s) Sexually active: No Do you think of yourself as: straight/heterosexual Current gender identity: female What is your relationship status?: How often do you talk on the phone with friends or family?: three or more times per week Do you belong to any clubs or organized social groups?: no Panel score (0-1 are the most socially isolated patients): 1 What type of physical activity do you participate in: none Darlene/Mormonism: No preference Special darlene needs: No Seatbelt use: always Helmet use: No Drive intox or ride w/intox driver recruiter: No Do you feel safe at home: Yes Do you feel safe in your relationship?: Yes Additional Social history: Pt smoked for 60yrs quit aug 2022. Exam Narrative Exam Narrative: General: Pale, responsive to voice. Head: Normocephalic, atraumatic. Paper-white conjuctiva. Neck: Trachea midline, Neck supple. ENT: MMM. No oropharygeal lesions or exudate. Cardiac: RRR, no murmurs appreciated Resp: No respiratory distress. CTAB. Abd: Soft, non-distended, nontender : No suprapubic tenderness. Extremities: No deformities. Symmetric non-pitting edema bilateral lower extremities. Neurologic: GCS 14 (E3 V4 M6). Anisorica. Left sided hemiparesis Course Vital Signs Vital signs: Vital Signs Temperature 36.8 C 01/16/23 14:17 Pulse 70 01/16/23 14:17 Respiratory Rate 20 01/16/23 14:17 Blood Pressure 81/37 L 01/16/23 14:17 Pulse Oximetry 99 01/16/23 14:17 Temperature 36.8 C 01/16/23 14:17 Temperature Source Skin 01/16/23 14:17 Pulse 62 01/16/23 14:38 Pulse 64 01/16/23 14:38 Respiratory Rate 14 01/16/23 14:38 Blood Pressure 96/32 L 01/16/23 14:38 Blood Pressure Mean 49 01/16/23 14:38 Blood Pressure Position Supine 01/16/23 14:17 Pulse Oximetry 93 01/16/23 14:38 Oxygen Delivery Method Room Air 01/16/23 14:17 Oxygen Flow Rate 0 01/16/23 14:17 Lab/Test Results Lab/Test Results: 01/16/23 14:35 Blood Blood Culture - Pending 01/16/23 14:35 Blood Blood Culture - Pending 01/16/23 14:35 Blood Blood Culture - Pending Laboratory Tests Range/Units 01/16/23 14:26 Crossmatch See Detail Critical Care Time Critical Care Time Critical Care Time: Yes Total Critical Care Time: 63 Attestation: Due to a high probability of clinically significant, life threatening deterioration, the patient required my highest level of preparedness to intervene emergently and I personally spent this critical care time directly and personally managing the patient. This critical care time included obtaining a history; examining the patient; pulse oximetry; ordering and review of studies; arranging urgent treatment with development of a management plan; evaluation of patient's response to treatment; frequent reassessment; and, discussions with other providers. This critical care time was performed to assess and manage the high probability of imminent, life-threatening deterioration that could result in multi-organ failure. It was exclusive of separately billable procedures.
--- NOTE | 2023-01-16 14:45 | DI.CT_ITS ---
Exam(s) CT THORAX ABD/PEL CTA EXAM: CT THORAX ABD/PEL CTA CLINICAL HISTORY: suspect hem. shock, no clear source of bleed. TECHNIQUE: Imaging Protocol: Axial CT angiography was performed with multi-slice acquisition and mu lti-planar and/or 3D reconstructions. CONTRAST MATERIAL: Intravenous: Omnipaque 350 Contrast volume:100 ml COMPARISON: CT CT CHEST PE CTA from 10/08/2022 FINDINGS: CHEST: Pulmonary Arteries: No evidence of filling defect to suggest pulmonary emboli. Tracheobronchial tree: Patent where visualized. Mediastinum and Natasha: No dominant adenopathy or fluid collection. Pulmonary parenchyma: Dependent changes. No consolidation or dominant measurable mass. Pleura: Tiny bilateral pleural effusions. No pneumothorax. Heart: The heart is mildly dilated. Moderate coronary artery calcifications are seen. Mitral annul ar calcification. Aorta: Thoracic aorta non-dilated. Heavy atherosclerotic calcification. Bones: Normal. Tubes, Catheters, and Lines: None ABDOMEN: Liver: Normal density. No measurable mass. Portal, Superior Mesenteric, and Splenic Veins: Unremarkable. Gallbladder and Biliary Tract: No radiodense calculus or biliary dilation. Pancreas: Normal density, no abnormal calcifications or inflammatory process. Spleen: Normal. Adrenals: No masses seen. Kidneys: Normal size, contour and axis. No radiodense stones or obstructive uropathy. No masses seen. Abdominal Aorta: Abdominal portion non-dilated. Atherosclerotic changes. Aortobifemoral bypass carol t which is patent. Patent bilateral femoral arteries. Occluded venetie iliac arteries. Moderate stenosis at the origin of the celiac artery and bilateral renal arteries.. Mild stenosis at the origin of the superior mesenteric artery Bowel: No obstruction or bowel wall thickening. Appendix is unremarkable. Peritoneal Cavity: Small amount of ascites is noted around the liver and gallbladder. Small amount o f ascites in the low pelvis. No focal collection or mesenteric inflammatory response. Lymph Nodes: Within normal limits. Bones: Degenerative changes. Soft Tissues: Unremarkable. PELVIS: Bladder: Larkin catheter. Reproductive Organs: Status post hysterectomy. Lymph Nodes: Within normal limits. Bones: Degenerative changes. IMPRESSION: 1. No evidence of pulmonary embolism. Tiny bilateral pleural effusions and dependent atelectasis. 2. Small amount of ascites. Marked gallbladder wall thickening versus pericholecystic fluid. No bow el abnormality identified. 3. Patent aortobifemoral bypass graft. Moderate stenosis at the origins of the SMA and renal arterie s. RADIATION DOSE DELIVERED: 784.3mGy.cm Total DLP DATA REPOSITORY: All CT scans at this facility are submitted to the National Radiology Data Registry (NRDR) Dose Index Registry (DIR) with the [employer] ([employer]). RADIATION OPTIMIZATION: All CT scans at this facility use at least one of these dose optimization te chniques: automated exposure control; mA and/or kV adjustment per patient size (includes targeted exa ms where dose is matched to clinical indication); or iterative reconstruction.
[2023-01-16 14:55] LABS: ALT 47 U/L (14-59); AST 63 U/L (15-37); Albumin 2.3 g/dL (3.4-5.0); Alkaline Phosphatase 95 U/L (46-116); Anion Gap 6.2 mmol/L (3-11); BUN 25 mg/dL (7-18); Bilirubin, Total 0.3 mg/dL (0.2-1.0); CO2 22.8 mmol/L (21.0-32.0); CREATININE 1.3 mg/dL (0.55-1.02); Calcium 7.8 mg/dL (8.5-10.1); Chloride 114 mmol/L (98-107); Estimated GFR 41.57 (mL/min/1.73m2); Glucose 132 mg/dL (74-106); Potassium 3.6 mmol/L (3.5-5.1); Sodium 143 mmol/L (136-145); Total Protein 4.8 g/dL (6.4-8.2)
[2023-01-16 14:57] LABS: INR 1.2 (0.9-1.1); Prothrombin Time 11.8 sec (9.3-11.0)
--- NOTE | 2023-01-16 15:00 | DI.CT_ITS ---
Exam(s) CT HEAD WO EXAM: CT HEAD WO CLINICAL HISTORY: syncope, seizure. TECHNIQUE: Imaging Protocol: Axial computed tomography images with coronal and sagittal reformatted images were created and reviewed COMPARISON: CT CT HEAD CERVICAL SPINE WO from 12/08/2022 FINDINGS: Ventricles and Extra axial spaces: Normal in size and morphology for the patient's age. Hemorrhage: None. Cerebral parenchyma: Old right frontal infarcts. No evidence of acute infarct or mass. Midline shift: None. Brainstem/Cerebellum: Normal. Calvarium: Normal. Visualized Paranasal sinuses/Mastoids: Clear. Soft Tissues: Unremarkable. IMPRESSION: Old right frontal infarcts. No acute intracranial process. RADIATION DOSE DELIVERED: 680.3mGy.cm Total DLP DATA REPOSITORY: All CT scans at this facility are submitted to the National Radiology Data Registry (NRDR) Dose Index Registry (DIR) with the [employer] (A[employer]). RADIATION OPTIMIZATION: All CT scans at this facility use at least one of these dose optimization te chniques: automated exposure control; mA and/or kV adjustment per patient size (includes targeted exa ms where dose is matched to clinical indication); or iterative reconstruction.
[2023-01-16] MEDS: Omnipaque 350 MG/ML 100 ML BTL IJ (15:20)
[2023-01-16] MEDS: Normal Saline - Diluent 50 ML VIAL IJ (15:21)
[2023-01-16 15:30] LABS: MCH 24.9 pg (27.0-33.0); MCHC 28.5 % (32.0-36.0); MCV 87 fL (80-95); MPV 9.9 fL (8.0-11.0); Platelet Count 205 10^3/uL (130-400); RBC 1.81 10^6/uL (3.93-5.22); RDW 16.8 % (11.7-14.6); RDW-SD 52.4 fL; WBC 5.89 10^3/uL (4.4-10.8)
[2023-01-16 15:36] LABS: HCT 15.8 % (36.0-46.0); HGB 4.5 g/dL (11.2-15.7)
[2023-01-16 15:43] LABS: Bilirubin Negative (Negative); Blood Negative (Negative); Clarity Clear (Clear); Glucose Negative (Negative); Ketones Trace mg/dL (Negative); Leukocyte Esterase Trace (Negative); Nitrite Negative (Negative); Specific Gravity 1.015 (1.005-1.025)
[2023-01-16 15:48] LABS: Troponin I 82 ng/L (<or=60)
[2023-01-16 16:05] LABS: Bacteria Few HPF (Negative); C & S Indicated? C&S Done As Ordered; Casts 0-2 Hyaline LPF (Negative); Crystals Negative HPF (Negative); Epithelial Cells Moderate HPF (Negative); Mucus Trace (Negative); Other Cells Rare Renal (Negative); RBC 0-2 HPF (0-2)
--- NOTE | 2023-01-16 17:42 | DI.VRAD_ITS ---
PROCEDURE INFORMATION: Exam: CTA Chest With Contrast CTA Abdomen and Pelvis With Contrast Exam date and time: 01/16/2023 5:21 PM Age: 82 years old Clinical indication: Patient HX: Suspected hem shock, no clear source of bleed TECHNIQUE: Imaging protocol: Computed tomographic angiography of the chest with contrast. Exam focused on the arteries. Computed tomographic angiography of the abdomen and pelvis with contrast. Exam focused on the arteries. 3D rendering (Not supervised by radiologist): MIP and/or 3D reconstructed images were created by the technologist. COMPARISON: CT CHEST PE CTA 10/08/2022 4:24 PM FINDINGS: VASCULATURE: Pulmonary arteries: Normal. No pulmonary emboli. Aorta: Dense atherosclerotic calcification of the thoracic aorta. No evidence of aortic aneurysm or dissection. 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 Mild stenosis of the origin of the superior mesenteric artery. Renal arteries: Moderate stenosis of the origin of the bilateral renal arteries. 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 Left iliac arteries: [place] left iliac arteries are occluded. CHEST: Lungs: Moderate dependent atelectasis in both lungs. No significant pulmonary consolidation. Pleural spaces: Minimal bilateral pleural effusions no pneumothorax. Heart: Unremarkable. No cardiomegaly. No pericardial effusion. Coronary arteries: Moderate coronary artery calcifications. ABDOMEN AND PELVIS: Liver: No mass. Gallbladder and bile ducts: Significant diffuse gallbladder wall thickening. No calcified gallstones. Pancreas: Unremarkable. No mass. No ductal dilation. Spleen: Unremarkable. No splenomegaly. Adrenal glands: Unremarkable. No mass. Kidneys and ureters: Unremarkable. No solid mass. No hydronephrosis. Stomach and bowel: Unremarkable. No obstruction. No mucosal thickening. Appendix: No evidence of appendicitis. Intraperitoneal space: Minimal scattered free fluid throughout the abdomen and pelvis. No free air. Urinary bladder: [place] catheter is present in the urinary bladder. Reproductive: Uterus is surgically absent. No adnexal abnormality. Lymph nodes: Unremarkable. No enlarged lymph nodes. Bones/joints: Moderate degenerative disc changes throughout the spine. No vertebral body compression or acute fracture. Soft tissues: Unremarkable. Other findings: Patent aortobifemoral bypass graft. IMPRESSION: 1. 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 No aortic aneurysm or dissection. 2. 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 3. Significant gallbladder wall thickening without evidence of calcified gallstones. 4. Minimal ascites and chronic osseous changes as noted Dictated and Authenticated by: Alek Rose MD. Ordering:RAMÍREZ Perez MD
--- NOTE | 2023-01-16 17:45 | DI.VRAD_ITS ---
PROCEDURE INFORMATION: Exam: CT Head Without Contrast Exam date and time: 01/16/2023 5:17 PM Age: 82 years old Clinical indication: Syncope and collapse; Patient HX: Syncope, seizure TECHNIQUE: Imaging protocol: Computed tomography of the head without contrast. 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 Mild generalized cerebral atrophy. No intracranial mass, hemorrhage or definite evidence of acute ischemia. Cerebral ventricles: No ventriculomegaly. Paranasal sinuses: Visualized sinuses are unremarkable. No fluid levels. Mastoid air cells: Visualized mastoid air cells are well aerated. Bones/joints: Unremarkable. No acute fracture. Soft tissues: Unremarkable. IMPRESSION: No acute intracranial abnormality. 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 Dictated and Authenticated by: Alek Rose MD. Ordering:RAMÍREZ Perez MD
[2023-01-16 17:51] LABS: Lactate 0.9 mmol/L (0.6-1.4)
[2023-01-16 18:20] LABS: Troponin I 82 ng/L (<or=60)
--- NOTE | 2023-01-16 19:12 | NUR.NOTE ---
Nursing Note: Pt has had 3 units blood and 1 FFP. Third bag a blood infusing at time of report. Pt now able to converse with staff and understands next steps of care.
[2023-01-16 19:53] LABS: HCT 31.6 % (36.0-46.0); MCH 26.7 pg (27.0-33.0); MCHC 31.6 % (32.0-36.0); MCV 85 fL (80-95); MPV 9.3 fL (8.0-11.0); Platelet Count 201 10^3/uL (130-400); RBC 3.74 10^6/uL (3.93-5.22); RDW 16.6 % (11.7-14.6); RDW-SD 51.5 fL; WBC 10.39 10^3/uL (4.4-10.8)
--- NOTE | 2023-01-16 23:27 | W.EDPROG ---
Date of service: 01/17/23 Time of Service: 00:55 Medical Decision Making Patient has been stable in the ED since she has had blood and FFP. She was on Levophed earlier but was able to be weaned off of this. She looks comfortable. Nursing has reported some crackles and I did discuss with EMS that if this gets worse, her sats go down, her BP goes up, and she is having difficulty breathing she may require some nitroglycerin and/or a diuretic. The patient is stable for transfer at this time. Sign Out Sign Out Data: Sign Out Comment: [place] [facility] [place] from [place] placement. Pending repeat CBC, if Hg < 8.0 would give 4th unit of PRBCs Last updated by Ana Mckinney MD at 01/16/23 19:52 Discharge Plan Disposition Patient Disposition: Transfer-Acute Inpatient Care Specific Acute Inpt Facility: [facility] Condition: Improving Discharge Details Clinical Impression: Acute hypotension, Anemia Primary Care Provider: Smair Casillas ED Provider: Judith Ortiz Home Meds and New Rx's Prescriptions: No Action lisinopril-hydrochlorothiazide 20-25 mg tablet 1 tab PO DAILY Qty: 90 1RF Hold Instructions: hold until you follow up with your primary care provider pantoprazole 40 mg tablet,delayed release (DR/EC) 40 mg PO DAILY@0730 Qty: 90 3RF sertraline 100 mg tablet 100 mg PO DAILY Qty: 90 3RF Centrum Silver Women 8 mg iron-400 mcg-300 mcg tablet 1 tab PO DAILY ketoconazole 2 % shampoo 1 applic topical .Twice a week PRN (Reason: seborrheic derm) Qty: 120 0RF Rx Instructions: Apply to wet scalp twice a week, leave on for 3-5 minutes, then rinse well. use for 2-4 weeks rosuvastatin 40 mg tablet 40 mg PO DAILY Qty: 90 3RF Incruse Ellipta 62.5 mcg/actuation blister with device 1 inh inhalation DAILY Qty: 30 12RF potassium chloride [K-Tab] 20 mEq tablet extended release 20 meq PO BID Qty: 180 4RF clopidogrel 75 mg tablet 75 mg PO DAILY Qty: 90 3RF ipratropium-albuterol 0.5 mg-3 mg(2.5 mg base)/3 mL solution for nebulization 3 ml inhalation Q4H PRN (Reason: wheezing) Qty: 540 8RF mometasone 0.1 % Cream 0 g topical BID Qty: 0 0RF budesonide-formoterol [Symbicort] 80-4.5 mcg/actuation Hfa Aerosol Inhaler 2 puff inhalation BID Qty: 0 0RF docusate sodium [Colace] 100 mg Capsule 100 mg PO TID PRN PRNQty: 0 0RF Inhaler, Assist Devices [Pocket Chamber] 1 ea miscellaneous DIRECTED Qty: 0 0RF tizanidine 4 mg tablet 4 mg PO BID Patient Comments: TAKE ONE TABLET BY MOUTH TWICE A DAY aspirin 81 mg tablet,delayed release (DR/EC) 81 mg PO DAILY Patient Comments: TAKE ONE TABLET BY MOUTH EVERY DAY albuterol sulfate 90 mcg/actuation HFA aerosol inhaler 2 puff inhalation 6XD PRNQty: 8.5 0RF Discharge Data Discharge Date/Time-TO BE ENTERED AT DEPARTURE: 01/16/23 23:44
== END 2023-01-16 23:44 | disposition short-term general hospital (02) ==
PROVIDERS: Student in an Organized Health Care Education/Training Program; Emergency Provider Emergency Medicine; PCP Nurse Practitioner Family
DX: I95.9 Hypotension, unspecified (principal); D64.9 Anemia, unspecified; R55 Syncope and collapse; J44.9 Chronic obstructive pulmonary disease, unspecified; I50.9 Heart failure, unspecified; Z79.899 Other long term (current) drug therapy
CPT/HCPCS: 51702; 71275; 80053; 85027; 86850; 86900; 86901; 86920; 87040; 93005; 96365; 96366; 99291; 70450; 74174; 81003; 81015; 83605; 84484; 85610; 85730; 87086; 93010; J3490; P9016; P9059

== ENCOUNTER 2023-04-01 09:48 | Outpatient (REF) | payer MEDICARE, OTHER, SELFPAY ==
[2023-04-01 11:55] LABS: Abs Immature Grans 0.02 10^3/uL (0.0-0.06); Absolute Basophil Count 0.04 10^3/uL (0.0-0.2); Absolute Eosinophil Count 0.16 10^3/uL (0.0-0.7); Absolute Lymphocyte Count 1.35 10^3/uL (1.2-3.4); Absolute Monocyte Count 0.56 10^3/uL (0.1-0.8); Absolute Neutrophil Count 4.53 10^3/uL (1.2-6.7); Basophils % 0.6; Eosinophils % 2.4; HCT 39.9 % (36.0-46.0); HGB 11.9 g/dL (11.2-15.7); Immature Grans % 0.3; Lymphocytes % 20.3; MCHC 29.8 % (32.0-36.0); MCV 97 fL (80-95); MPV 9.7 fL (8.0-11.0); Monocytes % 8.4; Platelet Count 209 10^3/uL (130-400); RDW 16.4 % (11.7-14.6); RDW-SD 59.5 fL; WBC 6.66 10^3/uL (4.4-10.8)
[2023-04-01 12:03] LABS: Anion Gap 10.4 mmol/L (3-11); BUN 24 mg/dL (7-18); CO2 25.6 mmol/L (21.0-32.0); CREATININE 1.1 mg/dL (0.55-1.02); Calcium 9.8 mg/dL (8.5-10.1); Chloride 105 mmol/L (98-107); Glucose 96 mg/dL (74-106); Potassium 3.7 mmol/L (3.5-5.1); Sodium 141 mmol/L (136-145)
== END 2023-04-01 09:49 | disposition home or self-care (01) ==
LOC: LBN 09:48
PROVIDERS: PCP Nurse Practitioner Family; Visit Provider Nurse Practitioner Family
DX: D64.9 Anemia, unspecified (principal); I50.21 Acute systolic (congestive) heart failure; J44.9 Chronic obstructive pulmonary disease, unspecified
CPT/HCPCS: 80048; 85027; 85025

== ENCOUNTER 2023-04-01 10:01 | Emergency (ER) | payer MEDICARE, OTHER, SELFPAY ==
[2023-04-01 10:08] VITALS: BP 124/82; PULSE 69; RESP 18; TEMP 36.8; O2SAT 95
--- NOTE | 2023-04-01 10:15 | DI.CT_ITS ---
Exam(s) CT HEAD WO EXAM: CT HEAD WO CLINICAL HISTORY: Fall, Headache. TECHNIQUE: Imaging Protocol: Axial computed tomography images with coronal and sagittal reformatted images were created and reviewed COMPARISON: CT CT HEAD WO from 01/16/2023 FINDINGS: Ventricles and Extra axial spaces: Normal in size and morphology for the patient's age. Hemorrhage: None. Cerebral parenchyma: There is an old right frontal infarct. There are areas of decreased attenuation in the white matter consistent with small vessel ischemic disease. Midline shift: None. Brainstem/Cerebellum: Normal. Calvarium: Normal. Visualized Paranasal sinuses/Mastoids: Mild mucosal thickening is seen in the right maxillary sinus. The remaining visualized paranasal sinuses and mastoid air cells are clear. Soft Tissues: There is soft tissue swelling in the left periorbital region and the left forehead. Th e orbits and retro-orbital soft tissues are unremarkable. IMPRESSION: 1. No acute intracranial process. 2. Soft tissue swelling in the left periorbital region and the left forehead. 3. Findings were discussed with Tiffany Grant at 11:48 a.m. on 04/01/2023. RADIATION DOSE DELIVERED: 666.16mGy.cm Total DLP DATA REPOSITORY: All CT scans at this facility are submitted to the National Radiology Data Registry (NRDR) Dose Index Registry (DIR) with the [employer] ([employer]). RADIATION OPTIMIZATION: All CT scans at this facility use at least one of these dose optimization te chniques: automated exposure control; mA and/or kV adjustment per patient size (includes targeted exa ms where dose is matched to clinical indication); or iterative reconstruction.
--- NOTE | 2023-04-01 10:15 | RT.EKG_ITS ---
APPROVED REPORT Exam: Resting ECG Reason for Exam: Fall, Head injury Patient Location: E HR:73 bpm ECG Measurements Heart Rate 73 AXIS ID 146 P 72 QRSd 77 QRS 36 QT 410 T 64 QTc 453 Conclusion Sinus rhythm...normal P axis, V-rate 60- 99 Sinus rhythm. No significant change from prior 01/16/23. WD
--- NOTE | 2023-04-01 10:20 | ED.GENADUL_ITS ---
Discharge Plan Disposition Patient Disposition: Home Condition: Stable Discharge Details Clinical Impression: Fall, Closed head injury without loss of consciousness Primary Care Provider: Samir Casillas ED Provider: Tiffany Grant Home Meds and New Rx's Prescriptions: No Action lisinopril-hydrochlorothiazide 20-25 mg tablet 1 tab PO DAILY Qty: 90 1RF Hold Instructions: hold until you follow up with your primary care provider Centrum Silver Women 8 mg iron-400 mcg-300 mcg tablet 1 tab PO DAILY rosuvastatin 40 mg tablet 40 mg PO DAILY Qty: 90 3RF Incruse Ellipta 62.5 mcg/actuation blister with device 1 inh inhalation DAILY Qty: 30 12RF pantoprazole 40 mg tablet,delayed release (DR/EC) 40 mg PO DAILY@0730 Qty: 90 3RF sertraline 100 mg tablet 100 mg PO DAILY Qty: 90 3RF potassium chloride [K-Tab] 20 mEq tablet extended release 20 meq PO BID Qty: 180 4RF clopidogrel 75 mg tablet 75 mg PO DAILY Qty: 90 3RF ipratropium-albuterol 0.5 mg-3 mg(2.5 mg base)/3 mL solution for nebulization 3 ml inhalation Q4H PRN (Reason: wheezing) Qty: 540 8RF ketoconazole 2 % shampoo 1 applic topical .Twice a week PRN (Reason: seborrheic derm) Qty: 120 0RF Rx Instructions: Apply to wet scalp twice a week, leave on for 3-5 minutes, then rinse well. use for 2-4 weeks mometasone 0.1 % cream 1 applic topical BID PRN (Reason: rash) Qty: 45 0RF Rx Instructions: apply to affected area budesonide-formoterol [Symbicort] 80-4.5 mcg/actuation Hfa Aerosol Inhaler 2 puff inhalation BID Qty: 0 0RF docusate sodium [Colace] 100 mg Capsule 100 mg PO TID PRN PRNQty: 0 0RF Inhaler, Assist Devices [Pocket Chamber] 1 ea miscellaneous DIRECTED Qty: 0 0RF tizanidine 4 mg tablet 4 mg PO BID Patient Comments: TAKE ONE TABLET BY MOUTH TWICE A DAY aspirin 81 mg tablet,delayed release (DR/EC) 81 mg PO DAILY Patient Comments: TAKE ONE TABLET BY MOUTH EVERY DAY albuterol sulfate 90 mcg/actuation HFA aerosol inhaler 2 puff inhalation 6XD PRNQty: 8.5 0RF Discharge Instructions Instructions: Head Injury (ED), Contusion in Adults (ED) Additional Instructions: No evidence of new bleeding or fracture on the head CT. Apply ice 3 times a day to swelling. Please take Tylenol with food every 4-6 hours as needed for pain and swelling. Follow up with primary care provider in 3-5 days. Return to ED sooner if any worsening headache, confusion vomiting or concerns. Increase oral fluids. Referrals: Samir Casillas NP [Primary Care Provider] - 5 days Medical Decision Making 82-year-old female presents to the ER with chief complaint of fall and head injury which occurred at 5 AM this morning. Patient reports that she bent over to pick something up lost her balance and fell forward landing on a hard floor. She denies any loss of consciousness. She is alert and oriented x3 upon arrival. 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 She does normally ambulate with a walker at home. She does have a small abrasion noted to her left frontal scalp and contusion and swelling around her left eye. She is no longer on blood thinners she was recently taken off of those. Other past medical history include ischemic CVA, pleural effusion seizures smoker, hypertension diverticulitis. Denies any neck or back pain denies chest pain shortness of breath or any other associated symptoms. Work up ordered including CBC, CMP, Trop, EKG and CT Head w/o Labs are largely unremarkable Spoke with Radiologist Dr. Lee, nothing acute on noncontrast Head CT. Patient discharged home with strict return instructions and follow-up care. Instructed on ice. This text was generated using [employer] system, please disregard any oddities of phrase or misspellings. Medical Records Medical records reviewed: Yes I reviewed the patient's medical records. Lab Data Lab results reviewed: Yes I reviewed the patient's lab results. Labs: Laboratory Tests Range/Units 04/01/23 04/01/23 10:28 10:28 WBC (4.4-10.8) 10^3/uL 5.99 RBC (3.93-5.22) 10^6/uL 3.58 L Hgb (11.2-15.7) g/dL 10.5 L Hct (36.0-46.0) % 34.5 L MCV (80-95) fL 96 H MCH (27.0-33.0) pg 29.3 MCHC (32.0-36.0) % 30.4 L RDW (11.7-14.6) % 16.3 H Plt Count (130-400) 10^3/uL 173 MPV (8.0-11.0) fL 9.3 Immature Gran % 0.3 Neutrophils % 68.9 Lymphocytes % 19.0 Monocytes % 9.5 Eosinophils % 2.0 Basophils % 0.3 Nucleated RBC % (0.0-0.3) % 0.0 Absolute Neutrophils (1.2-6.7) 10^3/uL 4.12 Absolute Lymphocytes (1.2-3.4) 10^3/uL 1.14 L Absolute Monocytes (0.1-0.8) 10^3/uL 0.57 Absolute Eosinophils (0.0-0.7) 10^3/uL 0.12 Absolute Basophils (0.0-0.2) 10^3/uL 0.02 Sodium (136-145) mmol/L 143 Potassium (3.5-5.1) mmol/L 3.7 Chloride (98-107) mmol/L 108 H Carbon Dioxide (21.0-32.0) mmol/L 25.3 Anion Gap (3-11) mmol/L 9.7 BUN (7-18) mg/dL 23 H Creatinine (0.55-1.02) mg/dL 1.2 H Est GFR (CKD-EPI 2020) (mL/min/1.73m2) 45.76 Glucose (74-106) mg/dL 103 Calcium (8.5-10.1) mg/dL 9.5 Magnesium (1.8-2.4) mg/dL 1.9 Total Bilirubin (0.2-1.0) mg/dL 0.3 AST (15-37) U/L 24 ALT (14-59) U/L 23 Alkaline Phosphatase (46-116) U/L 104 Troponin I (<or=60) ng/L < 50 Total Protein (6.4-8.2) g/dL 6.8 Albumin (3.4-5.0) g/dL 3.5 HPI General Mode of arrival: wheelchair . Date/Time Provider Initiated Documentation: 04/01/23 10:11 . Limitations to Documentation: no limitations . Information obtained by: patient, family, RN notes reviewed and old records reviewed . HPI Narrative: 82-year-old female presents to the ER with chief complaint of fall and head injury which occurred at 5 AM this morning. Patient reports that she bent over to pick something up lost her balance and fell forward landing on a hard floor. She denies any loss of consciousness. She is alert and oriented x3 upon arrival. 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 She does normally ambulate with a walker at home. She does have a small abrasion noted to her left frontal scalp and contusion and swelling around her left eye. She is no longer on blood thinners she was recently taken off of those. Other past medical history include ischemic CVA, pleural effusion seizures smoker, hypertension diverticulitis. Denies any neck or back pain denies chest pain shortness of breath or any other associated symptoms. Related Data Home Medications Medication Instructions Recorded Confirmed [id number] 8 mg-folic 400 1 tab PO DAILY 07/18/20 01/16/23 mcg-K 50 mcg-lutein 300 mcg tablet (Centrum Silver Women) lisinopril 20 1 tab PO DAILY #90 tabs 05/11/22 01/16/23 mg-hydrochlorothiazide 25 mg tablet aspirin 81 mg tablet,delayed 81 mg PO DAILY 09/23/22 01/16/23 release tizanidine 4 mg tablet 4 mg PO BID 09/23/22 01/16/23 albuterol sulfate 90 mcg/actuation 2 puff inhalation 6XD PRN #8.5 09/27/22 01/16/23 aerosol inhaler grams umeclidinium 62.5 mcg/actuation 1 inh inhalation DAILY #30 ea 10/06/22 01/16/23 blister powder for inhalation (Incruse Ellipta) Inhaler, Assist Devices [Pocket 1 ea miscellaneous DIRECTED ##0 10/13/22 01/16/23 Chamber] budesonide-formoterol HFA 80 2 puff inhalation BID #0 grams 10/13/22 01/16/23 mcg-4.5 mcg/actuation aerosol inhaler (Symbicort) docusate sodium 100 mg capsule 100 mg PO TID PRN PRN #0 caps 10/13/22 01/16/23 (Colace) pantoprazole 40 mg tablet,delayed 40 mg PO DAILY@0730 #90 tabs 11/27/22 01/16/23 release rosuvastatin 40 mg tablet 40 mg PO DAILY #90 tabs 11/27/22 01/16/23 sertraline 100 mg tablet 100 mg PO DAILY #90 tabs 11/27/22 01/16/23 potassium chloride 20 mEq 20 meq PO BID #180 tabs 12/06/22 01/16/23 tablet,extended release (K-Tab) clopidogrel 75 mg tablet 75 mg PO DAILY #90 tabs 12/15/22 01/16/23 ipratropium 0.5 mg-albuterol 3 mg 3 ml inhalation Q4H PRN wheezing 01/07/23 01/16/23 (2.5 mg base)/3 mL nebulization #540 mL soln ketoconazole 2 % shampoo 1 applic topical .Twice a week PRN 03/25/23 seborrheic derm #120 mL mometasone 0.1 % topical cream 1 applic topical BID PRN rash #45 03/25/23 grams Previous Rx's Medication Instructions Recorded lisinopril 20 1 tab PO DAILY #90 tabs 05/11/22 mg-hydrochlorothiazide 25 mg tablet albuterol sulfate 90 mcg/actuation 2 puff inhalation 6XD PRN #8.5 09/27/22 aerosol inhaler grams umeclidinium 62.5 mcg/actuation 1 inh inhalation DAILY #30 ea 10/06/22 blister powder for inhalation (Incruse Ellipta) Inhaler, Assist Devices [Pocket 1 ea miscellaneous DIRECTED ##0 10/13/22 Chamber] budesonide-formoterol HFA 80 2 puff inhalation BID #0 grams 10/13/22 mcg-4.5 mcg/actuation aerosol inhaler (Symbicort) docusate sodium 100 mg capsule 100 mg PO TID PRN PRN #0 caps 10/13/22 (Colace) pantoprazole 40 mg tablet,delayed 40 mg PO DAILY@0730 #90 tabs 11/27/22 release rosuvastatin 40 mg tablet 40 mg PO DAILY #90 tabs 11/27/22 sertraline 100 mg tablet 100 mg PO DAILY #90 tabs 11/27/22 potassium chloride 20 mEq 20 meq PO BID #180 tabs 12/06/22 tablet,extended release (K-Tab) clopidogrel 75 mg tablet 75 mg PO DAILY #90 tabs 12/15/22 ipratropium 0.5 mg-albuterol 3 mg 3 ml inhalation Q4H PRN wheezing 01/07/23 (2.5 mg base)/3 mL nebulization #540 mL soln ketoconazole 2 % shampoo 1 applic topical .Twice a week PRN 03/25/23 seborrheic derm #120 mL mometasone 0.1 % topical cream 1 applic topical BID PRN rash #45 03/25/23 grams Allergies Allergy/AdvReac Type Severity Reaction Status Date / Time baclofen AdvReac Intermediate mental Verified 01/06/23 10:00 status changes General Stated Complaint: Fall/Non TraumaCriteria IFTIKHAR: 3 Review of Systems All systems reviewed & are unremarkable except as noted in HPI and below Constitutional Constitutional: Reports headache(s) ENT Ears, Nose, Mouth, and Throat: Reports headache(s) Neurologic Neurologic: Reports headache(s) PFSH All Active Problems (Updated 04/01/23 @ 11:51 by Tiffany Grant NP) Fall (Acute) Closed head injury without loss of consciousness (Acute) Former cigarette smoker (Acute) Chronic obstructive lung disease (Acute) PFT'S 2009 FEV 1.15=59% continues to smoke Constipation (Chronic 11/14/17) Lumbago (Chronic 05/10/13) Peripheral vascular disease (Acute) Jul 2014 [facility] aorto bifem bypass LEFT ILIAC STENT [facility] 03/2010 Polyp of colon (Acute) tubular adenoma Shoulder arthralgia (Chronic) Carotid stenosis, left (Acute) 50-69% stenosis 04/2022; complete obstruction right internal carotid. Grief reaction (Chronic) Spouse 08/13/21 passed CVA (cerebral vascular accident) (Chronic) Neuro est. between 04/2020-11/2021 Counseling regarding advanced directives and goals of care (Acute) Dilated bile duct (Acute ~02/2022) s/p ERCP [facility], 10mm dilation, no masses. Due repeat MRI in 10/2022. Left rotator cuff tear arthropathy (Chronic) 40 mg Depo-Medrol injection: 04/13/2022 Nail dystrophy (Acute) Left upper quadrant abdominal pain (Acute) Seborrheic dermatitis of scalp (Acute) Productive cough (Acute) History of tobacco abuse (Acute) Right carotid artery occlusion (Acute) Occlusion of right vertebral artery (Acute) Left hemiparesis (Acute) Pulmonary hypertension (Acute) Pulmonary nodules/lesions, multiple (Acute) Anemia (Chronic) Pleural effusion (Acute) Congestive heart failure (Chronic) Medical History Anxiety about health Disorder of ear, left Diverticulitis of colon H/O SIGMOID COLECTOMY Essential hypertension (03/30/13) Hand pain, left Hyperlipidemia Ischemic cerebrovascular accident (CVA) due to atherosclerosis of large extracranial artery Perichondritis Pleural effusion Seizures Smoker (10/19/16) Surgical History Extraction of cataract B/L 04/2013 Ligation of fallopian tube Rotator Cuff Repair RIGHT S/P partial colectomy Trigger Finger release WRIST/THUMB SURGERY LEFT THUMB LEFT WRIST RIGHT THUMB Family History Mother Diabetes Essential hypertension Stroke Father , 55 Heart disease Stroke Brother , 71 Complications from surgery No problems noted. Son No problems noted. Son No problems noted. Daughter No problems noted. Daughter No problems noted. Social History Smoking/Tobacco Use Status: Former Tobacco Use tobacco type: cigarettes Quit Date: 08/04/22 Tobacco: How many years used: 63 Quit status: considering quitting Second Hand Exposure: Yes Smoking risk assessment performed?: Yes Alcohol Intake: never Drug use: Rarely Counseling given: No Counseling provided: none Caregiver/Support person: No Household members: none Housing: house Number of Children: 4 Communication Needs: Hard of Hearing Do you need help understanding health information?: Rarely Pets and animals: Yes Pets and animals: dog(s) Sexually active: No Do you think of yourself as: straight/heterosexual Current gender identity: female What is your relationship status?: How often do you talk on the phone with friends or family?: three or more times per week How often do you get together with friends or relatives?: decline to answer How often do you attend baptism or druze services?: 4 or more times per year Do you belong to any clubs or organized social groups?: no Panel score (0-1 are the most socially isolated patients): 2 What type of physical activity do you participate in: none Duration: 15-30 minutes/day Frequency: 3-4 times per week Darlene/Taoism: No preference Special darlene needs: No Seatbelt use: always Helmet use: No Drive intox or ride w/intox courier delivery driver: No Do you feel safe at home: Yes Do you feel safe in your relationship?: Yes Additional Social history: Pt smoked for 60yrs quit aug 2022. Exam Narrative Exam Narrative: General: Well Developed, Awake and Alert, conversant. Skin: Warm and Dry HEENT: Head: No palpable deformities, Normocephalic abrasion noted to left frontal scalp, bleeding controlled is quite superficial, ecchymosis and swelling noted to the left scalp temporal scalp and around left eye. Eyes: Pupils PERRLA, EOM's intact. No periorbital eccymosis or step off Ears: Canal patent. Tympanic membranes are clear . No casarez's sign, no hemptympanum. Nose/Face: Facial bones nontender to palpation and stable with manipulation. Mouth/Throat: No intraoral trauma. Teeth and mandible are intact. Neck: No midline tenderness, no step off, no deformity to palpation of C-spine. Trachea midline. Chest: No surface trauma. Nontender without crepitus or deformity. Lungs clear to ausculatation bilaterally. Heart: RRR, no rubs, murmurs or gallop. Abdomen: No abrasions, ecchymosis, or surface trauma. Nondistended. Nontender to palpation no guarding, rebound, or rigidity. Pelvis: Nontender to palpation and stable to compression. Femoral pulses strong and equal Extremities: no surface trauma. Sensation intact. Peripheral pulses intact and equal. Neuro: ANO x4, GCS 15, cranial nerves II through XII intact. Motor and sensory exam nonfocal. Const General: cooperative, comfortable, well developed and well groomed Nutritional Appearance: average body habitus Orientation: alert, awake and oriented x3 Limitations: physical limitations (Left side parasthesias) HENMT Face and sinus: abrasion on the left forehead and ecchymosis on the left nikita orbital and forehead Face images: 1. Abrasion 2. 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) Cognition: normal cognition Speech: speech normal Motor: other (left sided paralysis at Baseline from previous CVA) Course Vital Signs Vital signs: Vital Signs Temperature 36.8 C 04/01/23 10:08 Pulse 69 04/01/23 10:08 Respiratory Rate 18 04/01/23 10:08 Blood Pressure 124/82 04/01/23 10:08 Pulse Oximetry 95 04/01/23 10:08 Temperature 36.8 C 04/01/23 10:08 Temperature Source Oral 04/01/23 10:08 Pulse 69 04/01/23 10:08 Respiratory Rate 18 04/01/23 10:08 Respiratory Effort Normal 04/01/23 10:11 Blood Pressure 124/82 04/01/23 10:08 Blood Pressure Position Sitting 04/01/23 10:08 Pulse Oximetry 95 04/01/23 10:08 Oxygen Delivery Method Room Air 04/01/23 10:08 Oxygen Flow Rate 0 04/01/23 10:08
[2023-04-01 10:33] LABS: Abs Immature Grans 0.02 10^3/uL (0.0-0.06); Absolute Basophil Count 0.02 10^3/uL (0.0-0.2); Absolute Eosinophil Count 0.12 10^3/uL (0.0-0.7); Absolute Lymphocyte Count 1.14 10^3/uL (1.2-3.4); Absolute Monocyte Count 0.57 10^3/uL (0.1-0.8); Absolute Neutrophil Count 4.12 10^3/uL (1.2-6.7); Basophils % 0.3; HCT 34.5 % (36.0-46.0); HGB 10.5 g/dL (11.2-15.7); Immature Grans % 0.3; MCH 29.3 pg (27.0-33.0); MCHC 30.4 % (32.0-36.0); MCV 96 fL (80-95); MPV 9.3 fL (8.0-11.0); Monocytes % 9.5; Neutrophils % 68.9; Platelet Count 173 10^3/uL (130-400); RBC 3.58 10^6/uL (3.93-5.22); RDW 16.3 % (11.7-14.6); RDW-SD 58.1 fL; WBC 5.99 10^3/uL (4.4-10.8)
[2023-04-01 10:58] LABS: ALT 23 U/L (14-59); AST 24 U/L (15-37); Albumin 3.5 g/dL (3.4-5.0); Alkaline Phosphatase 104 U/L (46-116); Anion Gap 9.7 mmol/L (3-11); BUN 23 mg/dL (7-18); Bilirubin, Total 0.3 mg/dL (0.2-1.0); CO2 25.3 mmol/L (21.0-32.0); CREATININE 1.2 mg/dL (0.55-1.02); Calcium 9.5 mg/dL (8.5-10.1); Chloride 108 mmol/L (98-107); Estimated GFR 45.76 (mL/min/1.73m2); Glucose 103 mg/dL (74-106); Magnesium 1.9 mg/dL (1.8-2.4); Potassium 3.7 mmol/L (3.5-5.1); Sodium 143 mmol/L (136-145); Total Protein 6.8 g/dL (6.4-8.2); Troponin I < 50 ng/L (<or=60)
[2023-04-01 11:55] VITALS: BP 183/85; PULSE 67; RESP 16; O2SAT 97
== END 2023-04-01 12:05 | disposition home or self-care (01) ==
PROVIDERS: Emergency Provider Registered Nurse Emergency; PCP Nurse Practitioner Family
DX: S09.90XA Unspecified injury of head, initial encounter (principal); W19.XXXA Unspecified fall, initial encounter
CPT/HCPCS: 80053; 93005; 99284; 70450; 83735; 84484; 85025; 93010

== ENCOUNTER 2023-04-05 15:05 | Outpatient (REF) | payer MEDICARE, OTHER, SELFPAY ==
[2023-04-05 15:31] LABS: Abs Immature Grans 0.01 10^3/uL (0.0-0.06); Absolute Basophil Count 0.03 10^3/uL (0.0-0.2); Absolute Eosinophil Count 0.16 10^3/uL (0.0-0.7); Absolute Lymphocyte Count 1.33 10^3/uL (1.2-3.4); Absolute Monocyte Count 0.59 10^3/uL (0.1-0.8); Absolute Neutrophil Count 4.02 10^3/uL (1.2-6.7); Basophils % 0.5; Eosinophils % 2.6; HCT 37.3 % (36.0-46.0); HGB 11.4 g/dL (11.2-15.7); Immature Grans % 0.2; Lymphocytes % 21.7; MCHC 30.6 % (32.0-36.0); MCV 98 fL (80-95); Monocytes % 9.6; Neutrophils % 65.4; Platelet Count 208 10^3/uL (130-400); RDW 16.3 % (11.7-14.6); RDW-SD 59.1 fL; WBC 6.14 10^3/uL (4.4-10.8)
== END 2023-04-05 15:06 | disposition home or self-care (01) ==
LOC: LBN 15:05
PROVIDERS: PCP Nurse Practitioner Family; Visit Provider Nurse Practitioner Family
DX: K63.5 Polyp of colon (principal); D64.9 Anemia, unspecified
CPT/HCPCS: 85025

== ENCOUNTER → 2023-04-12 09:18 | Outpatient (BNVA) | payer MEDICARE, OTHER, SELFPAY | PROVIDERS: PCP Nurse Practitioner Family; Referring Provider Nurse Practitioner Family; Visit Provider Physician Assistant Surgical | DX: J41.0 Simple chronic bronchitis (principal); I27.20 Pulmonary hypertension, unspecified; R91.8 Other nonspecific abnormal finding of lung field; Z87.891 Personal history of nicotine dependence | CPT/HCPCS: 99214 ==

== ENCOUNTER 2023-04-12 15:01 | Outpatient (REF) | payer MEDICARE, OTHER, SELFPAY ==
[2023-04-12 16:04] LABS: Abs Immature Grans 0.02 10^3/uL (0.0-0.06); Absolute Basophil Count 0.02 10^3/uL (0.0-0.2); Absolute Eosinophil Count 0.11 10^3/uL (0.0-0.7); Absolute Lymphocyte Count 1.17 10^3/uL (1.2-3.4); Absolute Monocyte Count 0.55 10^3/uL (0.1-0.8); Absolute Neutrophil Count 4.62 10^3/uL (1.2-6.7); Basophils % 0.3; Eosinophils % 1.7; HCT 35.9 % (36.0-46.0); HGB 11.4 g/dL (11.2-15.7); Immature Grans % 0.3; MCH 30.8 pg (27.0-33.0); MCHC 31.8 % (32.0-36.0); MCV 97 fL (80-95); Monocytes % 8.5; Neutrophils % 71.2; Platelet Count 187 10^3/uL (130-400); RDW 15.8 % (11.7-14.6); WBC 6.49 10^3/uL (4.4-10.8)
== END 2023-04-12 15:02 | disposition home or self-care (01) ==
LOC: LBN 15:01
PROVIDERS: PCP Nurse Practitioner Family; Visit Provider Nurse Practitioner Family
DX: J44.9 Chronic obstructive pulmonary disease, unspecified (principal); D64.9 Anemia, unspecified; K31.819 Angiodysplasia of stomach and duodenum without bleeding
CPT/HCPCS: 80048; 85027; 84100; 85025

== ENCOUNTER 2023-04-18 22:30 | Outpatient (REF) | payer MEDICARE, OTHER, SELFPAY ==
[2023-04-18 17:55] LABS: Abs Immature Grans 0.03 10^3/uL (0.0-0.06); Absolute Basophil Count 0.03 10^3/uL (0.0-0.2); Absolute Eosinophil Count 0.15 10^3/uL (0.0-0.7); Absolute Lymphocyte Count 1.35 10^3/uL (1.2-3.4); Absolute Monocyte Count 0.74 10^3/uL (0.1-0.8); Absolute Neutrophil Count 6.02 10^3/uL (1.2-6.7); Basophils % 0.4; Eosinophils % 1.8; HCT 37.6 % (36.0-46.0); HGB 11.6 g/dL (11.2-15.7); Immature Grans % 0.4; Lymphocytes % 16.2; MCH 30.2 pg (27.0-33.0); MCHC 30.9 % (32.0-36.0); MCV 98 fL (80-95); MPV 10.8 fL (8.0-11.0); Monocytes % 8.9; Neutrophils % 72.3; Platelet Count 220 10^3/uL (130-400); RBC 3.84 10^6/uL (3.93-5.22); RDW 15.7 % (11.7-14.6); RDW-SD 55.1 fL; WBC 8.32 10^3/uL (4.4-10.8)
== END 2023-04-18 22:31 | disposition home or self-care (01) ==
LOC: LBN 22:30
PROVIDERS: PCP Nurse Practitioner Family; Visit Provider Nurse Practitioner Family
DX: D64.9 Anemia, unspecified (principal)
CPT/HCPCS: 85025

== ENCOUNTER 2023-04-23 19:19 | Emergency (ER) | payer MEDICARE, OTHER, SELFPAY ==
[2023-04-23] VITALS (19 sets, daily range): BP systolic 90–159; BP diastolic 28–49; PULSE 79–93; RESP 18–27; TEMP 37.5; O2SAT 85–100
--- NOTE | 2023-04-23 19:00 | RT.EKG_ITS ---
APPROVED REPORT Exam: Resting ECG Reason for Exam: chest pain Patient Location: E HR:89 bpm ECG Measurements Heart Rate 89 AXIS TX 138 P 87 QRSd 79 QRS 38 QT 351 T 68 QTc 428 Conclusion Sinus rhythm...normal P axis, V-rate 60- 99 Abnrm R prog, consider ASMI or lead placement...Q >30mS, diminished R, V1-V2 motion artifact, no stemi
--- NOTE | 2023-04-23 19:15 | DI.RAD_ITS ---
Exam(s) XR PORTABLE CHEST AP EXAM: XR PORTABLE CHEST AP CLINICAL HISTORY: cough. TECHNIQUE: 2D digital imaging was performed. COMPARISON: CR XR CHEST 2V PA LATERAL from 12/22/2022 FINDINGS: Single AP portable view. Heart size is upper normal. The mediastinum is not widened. Vertically orientated artifact line in the lateral aspect of the right lung with lung markings periph eral to this implying no pneumothorax. Increased markings are noted in both lungs. Suspect interstitial pulmonary edema. No discrete focal air bronchograms. No pleural effusions. IMPRESSION: Findings above suspicious for pulmonary edema. DATA REPOSITORY: RADIATION DOSE DELIVERED:
--- NOTE | 2023-04-23 19:29 | W.ED.GENAD ---
Discharge Plan Disposition Patient Disposition: Home Condition: Stable Discharge Details Clinical Impression: Shortness of breath, COPD exacerbation Primary Care Provider: Samir Casillas ED Provider: Dejon Oliveros Home Meds and New Rx's Prescriptions: New amoxicillin-pot clavulanate 875-125 mg tablet 1 tab PO BID Qty: 14 0RF prednisone 20 mg tablet 60 mg PO DAILY 4 Days Qty: 12 0RF No Action azithromycin 250 mg tablet 250 mg PO DAILY Qty: 30 6RF Centrum Silver Women 8 mg iron-400 mcg-300 mcg tablet 1 tab PO DAILY Incruse Ellipta 62.5 mcg/actuation blister with device 1 inh inhalation DAILY Qty: 30 12RF ferrous sulfate 325 mg (65 mg iron) tablet 325 mg PO DAILY fluticasone propionate 50 mcg/actuation spray,suspension 1 spray intranasal DAILY Rx Instructions: administer into each nostril mometasone 0.1 % cream 1 applic topical BID PRN (Reason: rash) Qty: 45 0RF Rx Instructions: apply to affected area ketoconazole 2 % shampoo 1 applic topical .Twice a week PRN (Reason: seborrheic derm) Qty: 120 0RF Rx Instructions: Apply to wet scalp twice a week, leave on for 3-5 minutes, then rinse well. use for 2-4 weeks potassium chloride [K-Tab] 20 mEq tablet extended release 20 meq PO BID Qty: 180 4RF pantoprazole 40 mg tablet,delayed release (DR/EC) 40 mg PO DAILY@0730 Qty: 90 3RF sertraline 100 mg tablet 100 mg PO DAILY Qty: 90 3RF clopidogrel 75 mg tablet 75 mg PO DAILY Qty: 90 3RF ipratropium-albuterol 0.5 mg-3 mg(2.5 mg base)/3 mL solution for nebulization 3 ml inhalation Q4H PRN (Reason: wheezing) Qty: 540 8RF atorvastatin 20 mg tablet 20 mg PO DAILY Qty: 90 3RF furosemide 20 mg tablet 20 mg PO DAILY PRN (Reason: weight gain) Qty: 90 1RF Rx Instructions: when wt is >112 lbs docusate sodium [Colace] 100 mg capsule 100 mg PO TID PRN PRN (Reason: constipation) Qty: 0 0RF budesonide-formoterol [Symbicort] 80-4.5 mcg/actuation Hfa Aerosol Inhaler 2 puff inhalation BID Qty: 0 0RF Inhaler, Assist Devices [Pocket Chamber] 1 ea miscellaneous DIRECTED Qty: 0 0RF aspirin 81 mg tablet,delayed release (DR/EC) 81 mg PO DAILY Patient Comments: TAKE ONE TABLET BY MOUTH EVERY DAY albuterol sulfate 90 mcg/actuation HFA aerosol inhaler 2 puff inhalation 6XD PRNQty: 8.5 0RF atorvastatin 80 mg tablet Patient Comments: TAKE ONE TABLET BY MOUTH EVERY DAY Discharge Instructions Instructions: COPD (Chronic Obstructive Pulmonary Disease) (ED) Additional Instructions: Follow up with your primary care provider within 1 week if you feel more ill, have severe worsening shortness of breath or severe pain return to the emergency department Medical Decision Making 82 yo female with hx of copd and intermittently requires oxygen but refuses home oxygen, carotid vascualr disease, chf with echo in October with an EF of 55%, who comes in with cough for several days and dyspnea and last night had chest pain and again 3-4 hours ago while at rest had chest pain so home health called ems. EMS gave 324mg asa. She has no pain now. She denies headaches, abdomen pain, n/v, diaphoresis. She is tender when I did a pocus on her chest in the left anterior chest, no visible or palpable deformities. No pericardial effusion and EF appears normal. She has no calf tenderness, no jvd. she has wheezing in all lung burdick on exam bilaterally. Suspect chest wall pain from her cough, ekg non diagnostic, will obtain troponin and also obtain cbc, cmp, probnp and chest xray along with covid test. She has no pleuritic chest pain, is 86% on room air but could be explained by her copd and has required oxygen in the past, no evidence of dvt on exam so concern for PE is low. No tearing back pain to suggest dissection. She did have a fall a few weeks ago from standing and was seen here in the ED and had a negative CT of her head. She states the bruising was initially around her left eye and is now over her left cheek and appears old, she has no pain in the face or head now and denies any new falls since so do not feel any imaging of her head or face indicated. labs show wbc of 17 otherwise no acute findings, troponin negative and has had symptoms over 4 hours so do not feel delta troponin indicated. Xray unremarkable. She has no physical evidence of fluid overload on exam, discussed results with her and discussed obs admission vs d/c with oral prednisone and augmentin and she prefers outpatient management which I feel is reasonable. Room air saturation now 91% and bp 140/70 with hr of 93. Will give a dose of iv ceftriaxone and advised to f/u with pcp, return precautions given recheck of temp on d/c was 101.5 axillary. She has stable vitals otherwise and still requests d/c and has decision making capacity, will continue with outpatient management but again stressed return precautions Differential Diagnosis Differential Diagnosis: copd exacerbation, pneumonia, covid, chf, acs Medical Records Medical records reviewed: Yes I reviewed the patient's medical records. Imaging Data Radiologic Study: Attestation: I personally reviewed and interpreted this imaging study as follows: Imaging: X-Ray Radiologist's impression: IMPRESSION: 1. Hazy indistinctness of the pulmonary vascular margins suggesting possible interstitial pulmonary edema. Clinical correlation is recommended. No focal pulmonary consolidation. 2. Suspected emphysema. 3. Enlarged pulmonary trunk and main pulmonary arteries suggesting pulmonary hypertension. Lab Data Lab results reviewed: Yes I reviewed the patient's lab results. ECG Data Attestation: I personally reviewed and interpreted this ECG (s) as follows: Prior ECG tracings: available for review Interpretation: motion artifact, sinus rate of 89 pr 138, no stemi HPI General Mode of arrival: EMS. Date/Time Provider Initiated Documentation: 04/23/23 19:21. Limitations to Documentation: no limitations. Information obtained by: patient. History of Present Illness 82 year old F presents to the emergency department with the chief complaint of chest pain, described as moderate, Patient reports no radiation. Patient started experiencing this day(s) (1) and it has been intermittent. No relieving factors improve symptom(s), No exacerbating factors reported . Patient notes cough. Patient did receive the following treatments prior to arrival, Aspirin (324mg with ems) Related Data Home Medications Medication Instructions Recorded Confirmed gyoymkxo-xurd-dwcc 8 mg-folic 400 1 tab PO DAILY 07/18/20 04/23/23 mcg-K 50 mcg-lutein 300 mcg tablet (Centrum Silver Women) aspirin 81 mg tablet,delayed 81 mg PO DAILY 09/23/22 04/23/23 release albuterol sulfate 90 mcg/actuation 2 puff inhalation 6XD PRN #8.5 09/27/22 04/23/23 aerosol inhaler grams umeclidinium 62.5 mcg/actuation 1 inh inhalation DAILY #30 ea 10/06/22 04/23/23 blister powder for inhalation (Incruse Ellipta) Inhaler, Assist Devices [Pocket 1 ea miscellaneous DIRECTED ##0 10/13/22 04/23/23 Chamber] budesonide-formoterol HFA 80 2 puff inhalation BID #0 grams 10/13/22 04/23/23 mcg-4.5 mcg/actuation aerosol inhaler (Symbicort) pantoprazole 40 mg tablet,delayed 40 mg PO DAILY@0730 #90 tabs 11/27/22 04/23/23 release sertraline 100 mg tablet 100 mg PO DAILY #90 tabs 11/27/22 04/23/23 clopidogrel 75 mg tablet 75 mg PO DAILY #90 tabs 12/15/22 04/23/23 ipratropium 0.5 mg-albuterol 3 mg 3 ml inhalation Q4H PRN wheezing 01/07/23 04/23/23 (2.5 mg base)/3 mL nebulization #540 mL soln ferrous sulfate 325 mg (65 mg 325 mg PO DAILY 04/04/23 04/23/23 iron) tablet fluticasone propionate 50 1 spray intranasal DAILY 04/04/23 04/23/23 mcg/actuation nasal spray,suspension ketoconazole 2 % shampoo 1 applic topical .Twice a week PRN 04/04/23 04/23/23 seborrheic derm #120 mL mometasone 0.1 % topical cream 1 applic topical BID PRN rash #45 04/04/23 04/23/23 grams potassium chloride 20 mEq 20 meq PO BID #180 tabs 04/04/23 04/23/23 tablet,extended release (K-Tab) atorvastatin 20 mg tablet 20 mg PO DAILY #90 tabs 04/07/23 04/23/23 azithromycin 250 mg tablet 250 mg PO DAILY #30 tabs 04/12/23 04/12/23 docusate sodium 100 mg capsule 100 mg PO TID PRN PRN constipation 04/22/23 04/23/23 (Colace) #0 caps furosemide 20 mg tablet 20 mg PO DAILY PRN weight gain #90 04/22/23 tabs amoxicillin 875 mg-potassium 1 tab PO BID #14 tabs 04/23/23 clavulanate 125 mg tablet atorvastatin 80 mg tablet mg 04/23/23 prednisone 20 mg tablet 60 mg (3 x 20 mg) PO DAILY 4 days 04/23/23 #12 tabs Previous Rx's Medication Instructions Recorded albuterol sulfate 90 mcg/actuation 2 puff inhalation 6XD PRN #8.5 09/27/22 aerosol inhaler grams umeclidinium 62.5 mcg/actuation 1 inh inhalation DAILY #30 ea 10/06/22 blister powder for inhalation (Incruse Ellipta) Inhaler, Assist Devices [Pocket 1 ea miscellaneous DIRECTED ##0 10/13/22 Chamber] budesonide-formoterol HFA 80 2 puff inhalation BID #0 grams 10/13/22 mcg-4.5 mcg/actuation aerosol inhaler (Symbicort) pantoprazole 40 mg tablet,delayed 40 mg PO DAILY@0730 #90 tabs 11/27/22 release sertraline 100 mg tablet 100 mg PO DAILY #90 tabs 11/27/22 clopidogrel 75 mg tablet 75 mg PO DAILY #90 tabs 12/15/22 ipratropium 0.5 mg-albuterol 3 mg 3 ml inhalation Q4H PRN wheezing 01/07/23 (2.5 mg base)/3 mL nebulization #540 mL soln ketoconazole 2 % shampoo 1 applic topical .Twice a week PRN 04/04/23 seborrheic derm #120 mL mometasone 0.1 % topical cream 1 applic topical BID PRN rash #45 04/04/23 grams potassium chloride 20 mEq 20 meq PO BID #180 tabs 04/04/23 tablet,extended release (K-Tab) atorvastatin 20 mg tablet 20 mg PO DAILY #90 tabs 04/07/23 azithromycin 250 mg tablet 250 mg PO DAILY #30 tabs 04/12/23 docusate sodium 100 mg capsule 100 mg PO TID PRN PRN constipation 04/22/23 (Colace) #0 caps furosemide 20 mg tablet 20 mg PO DAILY PRN weight gain #90 04/22/23 tabs amoxicillin 875 mg-potassium 1 tab PO BID #14 tabs 04/23/23 clavulanate 125 mg tablet prednisone 20 mg tablet 60 mg (3 x 20 mg) PO DAILY 4 days 04/23/23 #12 tabs Allergies Allergy/AdvReac Type Severity Reaction Status Date / Time baclofen AdvReac Intermediate mental Verified 04/23/23 19:21 status changes General Stated Complaint: Chest Pain IFTIKHRA: 2 Review of Systems All systems reviewed & are unremarkable except as noted in HPI and below Constitutional Constitutional: Denies chills, Denies fever(s) and Denies weakness Cardiovascular Cardiovascular: Reports chest pain and Reports dyspnea Respiratory Respiratory: Reports cough and Reports dyspnea Gastrointestinal Gastrointestinal: Denies abdominal pain, Denies nausea and Denies vomiting Musculoskeletal Musculoskeletal: Denies joint swelling Neurologic Neurologic: Denies weakness PFSH All Active Problems (Updated 04/23/23 @ 20:52 by Dejon Oliveros MD) COPD exacerbation (Acute) Shortness of breath (Acute) Closed head injury without loss of consciousness (Acute) Fall (Acute) Former cigarette smoker (Acute) Congestive heart failure (Chronic) Pleural effusion (Acute) Anemia (Chronic) Pulmonary nodules/lesions, multiple (Acute) Pulmonary hypertension (Acute) Left hemiparesis (Acute) 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 Due repeat MRI in 10/2022. Counseling regarding advanced directives and goals of care (Acute) CVA (cerebral vascular accident) (Chronic) Neuro est. between 04/2020-11/2021 Grief reaction (Chronic) Spouse 08/13/21 passed Carotid stenosis, left (Acute) 50-69% stenosis 04/2022; complete obstruction right internal carotid. Shoulder arthralgia (Chronic) Polyp of colon (Acute) tubular adenoma Peripheral vascular disease (Acute) Jul [address] [facility] [place] aorto bifem bypass LEFT ILIAC STENT 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 Son No problems noted. Son No problems noted. Daughter No problems noted. Daughter No problems noted. Social History Smoking/Tobacco Use Status: Former Tobacco Use tobacco type: cigarettes Quit Date: 08/04/22 Tobacco: How many years used: 63 Quit status: considering quitting Second Hand Exposure: Yes Smoking risk assessment performed?: Yes Alcohol Intake: never Drug use: Rarely Counseling given: No Counseling provided: none Caregiver/Support person: No Household members: none Housing: house Number of Children: 4 Communication Needs: Hard of Hearing Do you need help understanding health information?: Rarely Pets and animals: Yes Pets and animals: dog(s) Sexually active: No Do you think of yourself as: straight/heterosexual Current gender identity: female What is your relationship status?: How often do you talk on the phone with friends or family?: three or more times per week How often do you get together with friends or relatives?: decline to answer How often do you attend denominational or alevism services?: 4 or more times per year Do you belong to any clubs or organized social groups?: no Panel score (0-1 are the most socially isolated patients): 2 What type of physical activity do you participate in: none Duration: 15-30 minutes/day Frequency: 3-4 times per week Darlene/Gnosticist: No preference Special darlene needs: No Seatbelt use: always Helmet use: No Drive intox or ride w/intox pile driver engineer: No Do you feel safe at home: Yes Do you feel safe in your relationship?: Yes Additional Social history: Pt smoked for 60yrs quit aug 2022. Exam Const General: no acute distress Orientation: alert HENMT Head: normocephalic Ears: external ears normal General nose exam: external nose normal Mouth: moist mucous membranes Eyes General: appearance normal, both eyes and all related structures Neck Neck: normal visual inspection Resp Auscultation: wheezes Cardio Jugular venous pressure: no JVD Rate: regular rate GI Palpation: soft and nontender Skin General skin exam: no rashes or lesions noted Neuro General: patient alert and patient oriented x3 Extrem General: normal to inspection Psych Mental Status: mental status grossly normal Course Vital Signs Vital signs: Vital Signs Temperature 37.5 C 04/23/23 19:06 Pulse 92 H 04/23/23 19:06 Respiratory Rate 26 H 04/23/23 19:06 Blood Pressure 90/49 L 04/23/23 19:06 Pulse Oximetry 89 L 04/23/23 19:06 Temperature 37.5 C 04/23/23 19:06 Temperature Source Oral 04/23/23 19:06 Pulse 92 H 04/23/23 19:06 Respiratory Rate 26 H 04/23/23 19:06 Respiratory Effort Normal 04/23/23 19:20 Blood Pressure 90/49 L 04/23/23 19:06 Blood Pressure Position Supine 04/23/23 19:06 Pulse Oximetry 89 L 04/23/23 19:06 Oxygen Delivery Method Room Air 04/23/23 19:06 Oxygen Flow Rate 0 04/23/23 19:06 Pain Level 4 04/23/23 19:06 POCUS Exam (ED) Limited Cardiac Exam DATE OF EXAM: 04/23/23 TIME OF EXAM: 19:29 PROVIDER THAT PERFORMED THE STUDY: Dejon Oliveros IS THIS A REPEAT EXAM DURING THIS ENCOUNTER: no REASON FOR EXAM: Chest pain VISUALIZED STRUCTURES: Four Chambers VIEW OBTAINED: Parasternal long-axis and Subxiphoid PERTINENT FINDINGS/IMPRESSION: No LV dysfunction and No pericardial effusion Exam complete
[2023-04-23 19:39] LABS: BE (Venous) 1 mmol/L (-2-3); HCO3 (Venous) 25 mmol/L (23-28); O2 Sat (Venous) 84 %; TCO2 (Venous) 22 mmol/L (24-29); pCO2 (Venous) 33 mmHg (41-51); pH (Venous) 7.48 (7.31-7.41); pO2 (Venous) 46 mmHg
[2023-04-23 19:41] LABS: HCT 34.4 % (36.0-46.0); HGB 10.8 g/dL (11.2-15.7); MCH 29.3 pg (27.0-33.0); MCHC 31.4 % (32.0-36.0); MCV 94 fL (80-95); MPV 9.8 fL (8.0-11.0); Platelet Count 182 10^3/uL (130-400); RBC 3.68 10^6/uL (3.93-5.22); RDW 15.1 % (11.7-14.6); RDW-SD 51.1 fL; WBC 17.49 10^3/uL (4.4-10.8)
[2023-04-23] MEDS: Acetaminophen 325 MG TAB 650 MG PO (19:49)
[2023-04-23] MEDS: methylPREDNISolone SUCC 125 MG VIAL IVP (19:50)
[2023-04-23] MEDS: Albuterol/Ipratropium 3 ML UPD VIAL UPD (19:55)
[2023-04-23 19:59] LABS: Absolute Lymphocyte Count 0.52 10^3/uL (1.2-3.4); Absolute Monocyte Count 0.87 10^3/uL (0.1-0.8); Absolute Neutrophil Count 13.99 10^3/uL (1.2-6.7)
[2023-04-23 20:00] LABS: Diff Comment Manual Differential; Hypochromasia 1+
[2023-04-23] MEDS: Normal Saline 250 ML 500 ML IV (20:01)
[2023-04-23 20:03] LABS: Source Nasal/Nares
[2023-04-23 20:04] LABS: INR 1.2 (0.9-1.1); PTT Activated 25.5 sec (23.6-32.8); Prothrombin Time 11.8 sec (9.1-11.1)
[2023-04-23 20:14] LABS: ALT 28 U/L (14-59); AST 25 U/L (15-37); Albumin 3.5 g/dL (3.4-5.0); Alkaline Phosphatase 87 U/L (46-116); Anion Gap 10.6 mmol/L (3-11); BUN 28 mg/dL (7-18); Bilirubin, Total 0.4 mg/dL (0.2-1.0); CO2 24.4 mmol/L (21.0-32.0); CREATININE 1.3 mg/dL (0.55-1.02); Calcium 9.3 mg/dL (8.5-10.1); Chloride 103 mmol/L (98-107); Estimated GFR 41.57 (mL/min/1.73m2); Glucose 139 mg/dL (74-106); Magnesium 1.8 mg/dL (1.8-2.4); NT-proBNP 2253 pg/mL (<300); Potassium 3.4 mmol/L (3.5-5.1); Sodium 138 mmol/L (136-145); Total Protein 6.9 g/dL (6.4-8.2); Troponin I < 50 ng/L (<or=60)
[2023-04-23 20:18] LABS: TSH (W/Ref FT4) 1.22 uIU/mL (0.36-3.74)
[2023-04-23] MEDS: cefTRIAXone 2 GM/50 ML BAG IVPB (20:31)
[2023-04-23 20:34] LABS: COVID-19 PCR Negative (Negative)
--- NOTE | 2023-04-23 20:42 | DI.VRAD_ITS ---
PROCEDURE INFORMATION: Exam: XR Chest Exam date and time: 04/23/2023 7:43 PM Age: 82 years old Clinical indication: Pain; Chest pressure TECHNIQUE: Imaging protocol: Radiologic exam of the chest. Views: 1 view. COMPARISON: CR XR CHEST 2V PA LATERAL 12/22/2022 1:11 PM FINDINGS: Lungs: There is diffuse coarsening of the interstitial pulmonary markings suggesting underlying chronic lung disease, possibly emphysema. No focal pulmonary consolidation is seen. There is hazy indistinctness of the pulmonary vascular margins suggesting possible interstitial pulmonary edema. Pleural spaces: No pleural effusion or pneumothorax is demonstrated acute Heart/Mediastinum: The heart is normal in size. There is atherosclerotic calcification of the apex of the aortic arch. The pulmonary arteries appear enlarged suggesting pulmonary hypertension. Bones/joints: The visualized bony structures appear grossly intact. There are osteophytes along the thoracic spinal margin. IMPRESSION: 1. Hazy indistinctness of the pulmonary vascular margins suggesting possible interstitial pulmonary edema. Clinical correlation is recommended. No focal pulmonary consolidation. 2. Suspected emphysema. 3. Enlarged pulmonary trunk and main pulmonary arteries suggesting pulmonary hypertension. Dictated and Authenticated by: Keenan Collins MD. Ordering:CARA Ashford MD
== END 2023-04-23 21:30 | disposition home or self-care (01) ==
PROVIDERS: Emergency Provider Emergency Medicine; PCP Nurse Practitioner Family
DX: R07.9 Chest pain, unspecified (principal); J44.9 Chronic obstructive pulmonary disease, unspecified; I11.0 Hypertensive heart disease with heart failure; I50.9 Heart failure, unspecified; I69.354 Hemiplegia and hemiparesis following cerebral infarction affecting left non-dominant side; Z79.02 Long term (current) use of antithrombotics/antiplatelets; Z79.82 Long term (current) use of aspirin; Z87.891 Personal history of nicotine dependence
CPT/HCPCS: 80053; 82805; 87040; 87635; 93005; 93308; 96365; 96375; 99283; 71045; 83735; 83880; 84443; 84484; 85025; 85610; 85730; 93010; J2930; J7620

== ENCOUNTER 2023-05-16 12:55 | Outpatient (REF) | payer MEDICARE, OTHER, SELFPAY ==
[2023-05-16 13:17] LABS: Abs Immature Grans 0.03 10^3/uL (0.0-0.06); Absolute Basophil Count 0.02 10^3/uL (0.0-0.2); Absolute Eosinophil Count 0.15 10^3/uL (0.0-0.7); Absolute Lymphocyte Count 1.58 10^3/uL (1.2-3.4); Absolute Monocyte Count 0.59 10^3/uL (0.1-0.8); Absolute Neutrophil Count 4.72 10^3/uL (1.2-6.7); Basophils % 0.3; Eosinophils % 2.1; HCT 35.1 % (36.0-46.0); HGB 10.8 g/dL (11.2-15.7); Immature Grans % 0.4; Lymphocytes % 22.3; MCH 29.7 pg (27.0-33.0); MCHC 30.8 % (32.0-36.0); MCV 96 fL (80-95); MPV 9.7 fL (8.0-11.0); Monocytes % 8.3; Neutrophils % 66.6; Platelet Count 261 10^3/uL (130-400); RBC 3.64 10^6/uL (3.93-5.22); RDW 15.6 % (11.7-14.6); RDW-SD 55.1 fL; Reticulocyte 3.5 % (0.5-2.4); WBC 7.09 10^3/uL (4.4-10.8)
[2023-05-16 13:28] LABS: Iron 83 ug/dL (50-170); Total Iron Binding Capacity 350 ug/dL (250-450); Transferrin Sat 24 % (15-50)
[2023-05-16 13:47] LABS: ALT 43 U/L (14-59); AST 29 U/L (15-37); Albumin 3.4 g/dL (3.4-5.0); Alkaline Phosphatase 123 U/L (46-116); Anion Gap 9.1 mmol/L (3-11); BUN 32 mg/dL (7-18); Bilirubin, Total 0.2 mg/dL (0.2-1.0); CO2 28.9 mmol/L (21.0-32.0); CREATININE 1.2 mg/dL (0.55-1.02); Calcium 9.2 mg/dL (8.5-10.1); Chloride 105 mmol/L (98-107); Estimated GFR 45.76 (mL/min/1.73m2); Ferritin 70 ng/mL (8-252); Folate > 20.0 ng/mL (8.6-20.0); Glucose 164 mg/dL (74-106); Potassium 3.8 mmol/L (3.5-5.1); Sodium 143 mmol/L (136-145); Total Protein 6.7 g/dL (6.4-8.2); Vitamin B12 603 pg/mL (193-986)
[2023-05-17 12:05] LABS: NT-proBNP 953 pg/mL (<300)
[2023-05-17 12:10] LABS: Lab Add On Test DONE
== END 2023-05-16 12:56 | disposition home or self-care (01) ==
LOC: LBN 12:55
PROVIDERS: PCP Nurse Practitioner Family; Visit Provider Internal Medicine Hematology & Oncology
DX: K31.811 Angiodysplasia of stomach and duodenum with bleeding (principal); D64.9 Anemia, unspecified; I10 Essential (primary) hypertension; J44.9 Chronic obstructive pulmonary disease, unspecified; I50.21 Acute systolic (congestive) heart failure; Z79.899 Other long term (current) drug therapy
CPT/HCPCS: 80053; 82607; 82728; 82746; 83540; 83550; 83880; 85025; 85045

== ENCOUNTER 2023-05-24 20:17 | Outpatient (REF) | payer MEDICARE, OTHER, SELFPAY ==
[2023-05-24 20:45] LABS: Anion Gap 6.5 mmol/L (3-11); BUN 30 mg/dL (7-18); CO2 29.5 mmol/L (21.0-32.0); CREATININE 1.3 mg/dL (0.55-1.02); Calcium 9.7 mg/dL (8.5-10.1); Chloride 105 mmol/L (98-107); Estimated GFR 41.57 (mL/min/1.73m2); Glucose 126 mg/dL (74-106); Potassium 3.7 mmol/L (3.5-5.1); Sodium 141 mmol/L (136-145)
== END 2023-05-24 20:18 | disposition home or self-care (01) ==
LOC: LBN 20:17
PROVIDERS: PCP Nurse Practitioner Family; Visit Provider Nurse Practitioner Family
DX: I50.9 Heart failure, unspecified (principal)
CPT/HCPCS: 80048

== ENCOUNTER → 2023-07-14 11:42 | Outpatient (BNVA) | payer MEDICARE, OTHER, MEDICAID, SELFPAY | PROVIDERS: PCP Nurse Practitioner Family; Referring Provider Nurse Practitioner Family; Visit Provider Podiatrist | DX: M79.674 Pain in right toe(s) (principal); M79.675 Pain in left toe(s); L60.3 Nail dystrophy; R20.9 Unspecified disturbances of skin sensation; R60.0 Localized edema; R23.1 Pallor; L65.9 Nonscarring hair loss, unspecified | CPT/HCPCS: 11721 ==

== ENCOUNTER → 2023-07-15 11:04 | Outpatient (BNVA) | payer MEDICARE, OTHER, MEDICAID, SELFPAY | PROVIDERS: PCP Nurse Practitioner Family; Referring Provider Nurse Practitioner Family; Visit Provider Student in an Organized Health Care Education/Training Program | DX: J41.0 Simple chronic bronchitis (principal); I27.20 Pulmonary hypertension, unspecified; R91.8 Other nonspecific abnormal finding of lung field; Z87.891 Personal history of nicotine dependence | CPT/HCPCS: 99214 ==

== ENCOUNTER 2023-07-26 14:56 | Outpatient (REF) | payer MEDICARE, OTHER, MEDICAID, SELFPAY ==
[2023-07-26 12:13] LABS: HCT 42.1 % (36.0-46.0); HGB 13.2 g/dL (11.2-15.7); MCH 29.8 pg (27.0-33.0); MCHC 31.4 % (32.0-36.0); MCV 95 fL (80-95); MPV 10.4 fL (8.0-11.0); Platelet Count 171 10^3/uL (130-400); RBC 4.43 10^6/uL (3.93-5.22); RDW 14.1 % (11.7-14.6); RDW-SD 49.7 fL; WBC 7.78 10^3/uL (4.4-10.8)
[2023-07-26 13:02] LABS: Anion Gap 10.4 mmol/L (3-11); BUN 37 mg/dL (7-18); CO2 27.6 mmol/L (21.0-32.0); CREATININE 1.3 mg/dL (0.55-1.02); Calcium 10.2 mg/dL (8.5-10.1); Chloride 105 mmol/L (98-107); Estimated GFR 41.57 (mL/min/1.73m2); Glucose 95 mg/dL (74-106); Potassium 4.3 mmol/L (3.5-5.1); Sodium 143 mmol/L (136-145)
[2023-07-26 13:43] LABS: Iron 77 ug/dL (50-170)
[2023-07-26 14:22] LABS: Ferritin 95 ng/mL (8-252)
== END 2023-07-26 14:57 | disposition home or self-care (01) ==
LOC: LBN 14:56
PROVIDERS: PCP Nurse Practitioner Family; Visit Provider Nurse Practitioner Family
DX: I10 Essential (primary) hypertension (principal); D64.9 Anemia, unspecified
CPT/HCPCS: 80048; 85027; 82728; 83540

== ENCOUNTER → 2023-08-02 01:22 | Outpatient (CLI) | payer MEDICARE, OTHER, SELFPAY ==
--- NOTE | 2023-08-02 06:45 | DI.RAD_ITS ---
Exam(s) XR HIP LT COMPLETE AP PELVIS EXAM: XR HIP LT COMPLETE AP PELVIS CLINICAL HISTORY: lt hip pain,[id number]. TECHNIQUE: 2D digital imaging was performed. COMPARISON: CR,XR XR HIP LT COMPLETE AP PELVIS from 09/25/2022 FINDINGS: 3 views No evidence of pelvic nor hip fracture. Mild degenerative changes noted in the left hip. Vascular c alcification noted in the pelvis and there also endovascular stents evident in the left common and ex ternal iliac arteries. IMPRESSION: Moderate degenerative change in the left hip. DATA REPOSITORY: RADIATION DOSE DELIVERED:
== END ==
PROVIDERS: PCP Nurse Practitioner Family; Visit Provider Nurse Practitioner Family
DX: M16.12 Unilateral primary osteoarthritis, left hip (principal)
CPT/HCPCS: 73502

== ENCOUNTER 2023-08-09 18:16 | Emergency (ER) | payer MEDICARE, OTHER, SELFPAY ==
[2023-08-09 18:29] VITALS: BP 169/38; PULSE 81; RESP 16; TEMP 36.6; O2SAT 959
--- NOTE | 2023-08-09 18:40 | W.ED.GENAD ---
HPI General Date/Time Provider Initiated Documentation: 08/09/23 18:39. HPI Narrative: 82 year-old female presents to ED today by POV/ambulating with her son with a chief complaint of continued L hip pain, has known severe arthritis from XR performed at PCP, has f/u with orthopaedics later this month- having worsening leg pain. Quality described as sharp and spasms with certain movements, having trouble sleeping sometimes due to pain, no radiation to numbness/tingling in distal L LE, unilateral leg swelling, fever, bowel changes, bulging at the inguinal area. Severity is described as 8/10. Palliating factors include takes Tylenol and other conservative pain management at home. Provoking factors include nothing specific. Patient not anticoagulated. Related Data Home Medications Medication Instructions Recorded Confirmed [id number] 8 mg-folic 400 1 tab PO DAILY 07/18/20 08/09/23 mcg-K 50 mcg-lutein 300 mcg tablet (Centrum Silver Women) Inhaler, Assist Devices [Pocket 1 ea miscellaneous DIRECTED ##0 10/13/22 08/09/23 Chamber] pantoprazole 40 mg tablet,delayed 40 mg PO DAILY@0730 #90 tabs 11/27/22 08/09/23 release sertraline 100 mg tablet 100 mg PO DAILY #90 tabs 11/27/22 08/09/23 ipratropium 0.5 mg-albuterol 3 mg 3 ml inhalation Q4H PRN wheezing 01/07/23 08/09/23 (2.5 mg base)/3 mL nebulization #540 mL soln ferrous sulfate 325 mg (65 mg 325 mg PO DAILY 04/04/23 08/09/23 iron) tablet ketoconazole 2 % shampoo 1 applic topical .Twice a week PRN 04/04/23 08/09/23 seborrheic derm #120 mL mometasone 0.1 % topical cream 1 applic topical BID PRN rash #45 04/04/23 08/09/23 grams potassium chloride 20 mEq 20 meq PO BID #180 tabs 04/04/23 08/09/23 tablet,extended release (K-Tab) atorvastatin 20 mg tablet 20 mg PO QHS #90 tabs 05/17/23 08/09/23 docusate sodium 50 mg capsule 100 mg (2 x 50 mg) PO TID PRN 05/17/23 08/09/23 (Colace Clear) constipation #540 caps furosemide 20 mg tablet 40 mg (2 x 20 mg) PO DAILY PRN 05/17/23 08/09/23 weight gain #90 tabs fluticasone propionate 115 2 puff inhalation BID #12 grams 07/15/23 08/09/23 mcg-salmeterol 21 mcg/actuation HFA inhaler (Advair HFA) aspirin 81 mg tablet,delayed 81 mg PO DAILY 08/09/23 08/09/23 release diclofenac sodium 1 % topical gel 2 g topical QID L hip pain #100 08/09/23 grams Previous Rx's Medication Instructions Recorded Inhaler, Assist Devices [Pocket 1 ea miscellaneous DIRECTED ##0 10/13/22 Chamber] pantoprazole 40 mg tablet,delayed 40 mg PO DAILY@0730 #90 tabs 11/27/22 release sertraline 100 mg tablet 100 mg PO DAILY #90 tabs 11/27/22 ipratropium 0.5 mg-albuterol 3 mg 3 ml inhalation Q4H PRN wheezing 01/07/23 (2.5 mg base)/3 mL nebulization #540 mL soln ketoconazole 2 % shampoo 1 applic topical .Twice a week PRN 04/04/23 seborrheic derm #120 mL mometasone 0.1 % topical cream 1 applic topical BID PRN rash #45 04/04/23 grams potassium chloride 20 mEq 20 meq PO BID #180 tabs 04/04/23 tablet,extended release (K-Tab) atorvastatin 20 mg tablet 20 mg PO QHS #90 tabs 05/17/23 docusate sodium 50 mg capsule 100 mg (2 x 50 mg) PO TID PRN 05/17/23 (Colace Clear) constipation #540 caps furosemide 20 mg tablet 40 mg (2 x 20 mg) PO DAILY PRN 05/17/23 weight gain #90 tabs fluticasone propionate 115 2 puff inhalation BID #12 grams 07/15/23 mcg-salmeterol 21 mcg/actuation HFA inhaler (Advair HFA) diclofenac sodium 1 % topical gel 2 g topical QID L hip pain #100 08/09/23 grams Allergies Allergy/AdvReac Type Severity Reaction Status Date / Time baclofen AdvReac Intermediate mental Verified 08/09/23 18:35 status changes General Stated Complaint: Orthopedic IFTIKHAR: 3 Review of Systems All systems reviewed & are unremarkable except as noted in HPI and below Exam Narrative Exam Narrative: GENERAL APPEARANCE: Well-nourished, non-toxic, awake and alert, atraumatic, no acute distress. SKIN: Warm, pink, dry, intact, without rashes/lesions/ulcerations. HEAD: Normocephalic, atraumatic, normal hair distribution for gender/age. EYES: Pupils PERRLA, EOMs intact without nystagmus, normal conjunctiva, no exudates on lids/lashes. ENT: Nares patent, no circumoral cyanosis, no facial swelling NECK: Supple, trachea midline, painless cervical ROM. LUNGS/CHEST: Non-labored respirations, normal A/P diameter, symmetrical expansion, no chest wall deformity HEART (CV/PV): Regular rate, L dorsalis pedis pulse 2+, no peripheral edema, no JVD. ABDOMEN: Soft, non-distended, no guarding. MSK: Normal ROM, no swelling/deformity to bilateral UEs or LEs, moving all extremities without weakness, no cyanosis, spine midline without tenderness, normal curvature. L LE/Hip: Tenderness without palpable swelling or abnormality in the left hip flexor muscles, no crepitus, no ecchymosis or signs of trauma, no unilateral leg swelling, Homans negative, neurovascularly intact distal left lower extremity NEURO: Mental Status AAOx4 - alert to person, place, time, events No facial droop, no forehead involvement. Motor: No focal weakness - strength 5/5 in bilateral UEs and LEs, proximal and distal, symmetric. Sensory: sensation intact to light touch globally. Gait normal: patient ambulated without ataxia into ED room. PSYCH: euthymic, cooperative, pleasant, appropriate speech Course Vital Signs Vital signs: Vital Signs Temperature 36.6 C 08/09/23 18:29 Pulse 81 08/09/23 18:29 Respiratory Rate 16 08/09/23 18:29 Blood Pressure 169/38 H 08/09/23 18:29 Pulse Oximetry 959 H 08/09/23 18:29 Temperature 36.6 C 08/09/23 18:29 Temperature Source Temporal Artery Scan 08/09/23 18:29 Pulse 81 02/06/24 18:29 Respiratory Rate 16 08/09/23 18:29 Blood Pressure 169/38 H 08/09/23 18:29 Blood Pressure Position Sitting 08/09/23 18:29 Pulse Oximetry 959 H 08/09/23 18:29 Oxygen Delivery Method Room Air 08/09/23 18:29 Oxygen Flow Rate 0 08/09/23 18:29 Pain Level 7 08/09/23 18:29 Medical Decision Making This dictation utilizes [id number] dictation software and may contain unedited grammatical errors. 82 y/o F presents to ED today with a chief complaint of continued pain with diagnosed arthritis in L hip awaiting ortho f/u- denies trauma since XR weeks ago- pain and muscle spasms with SLR to hip flexor muscles. Patient does not attend physical therapy, is not icing the area. Patients' medical history: History of CVA, perichondritis, arthritis, seizure disorder, hypertension, hyperlipidemia, former cigarette smoker, CHF, COPD. Family and social history: uses a walker at-home, but is active in ADLs. Pertinent exam findings / vital signs include L LE/Hip: Tenderness without palpable swelling or abnormality in the left hip flexor muscles, no crepitus, no ecchymosis or signs of trauma, no unilateral leg swelling, Homans negative, neurovascularly intact distal left lower extremity. Differential / pathologies of concern include arthritis, muscle spasm, not new trauma. Diagnostic studies of: -none. Interventions of: -recommend trial of topical Voltaren, ice the area, and attending physical therapy visits while awaiting ortho f/u. Counseled on high-risk for narcotic pain management and fall risk and agitated delerium potential in her age group- agreed to forego this treatment. ED Course/Assessment/Plan: 82-year-old female with known left hip arthritis awaiting Ortho follow-up presents with increasing pain over the past 2 weeks while she is awaiting follow-up. States she wants pain control but I did discuss with her the negative ramifications of starting narcotic pain management in a patient of her population. She is not icing the area and I did convince her to perform a trial of icing the area to complete numbness and letting rewarm to room temperature frequently throughout the day, I also prescribed her topical Voltaren gel to use for trial of relief and recommend she follow-up with orthopedics to see if they could expedite her follow-up as well as recommend she call physical therapy offices tomorrow for exercises for arthritis. Findings not consistent with fracture or neurovascular compromise, new trauma. Disposition of arthritis of left hip. Patient verbalized understanding of the plan and return to ED criteria and engaged in shared decision making. Medical Records Medical records reviewed: Yes I reviewed the patient's medical records. 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 Due repeat MRI in 10/2022. Counseling regarding advanced directives and goals of care (Acute) CVA (cerebral vascular accident) (Chronic) Neuro est. between 04/2020-11/2021 Grief reaction (Chronic) Spouse 08/13/21 passed Carotid stenosis, left (Acute) 50-69% stenosis 04/2022; complete obstruction right internal carotid. Shoulder arthralgia (Chronic) Polyp of colon (Acute) tubular adenoma Peripheral vascular disease (Acute) Jul 2014 [facility] [place] aorto bifem bypass LEFT ILIAC STENT [facility] [place] 03/2010 Lumbago (Chronic 05/10/13) Constipation (Chronic 11/14/17) Chronic obstructive lung disease (Acute) PFT'S 2009 FEV 1.15=59% continues to smoke Medical History Pleural effusion Ischemic cerebrovascular accident (CVA) due to atherosclerosis of large extracranial artery Perichondritis Disorder of ear, left Hand pain, left Anxiety about health Seizures Smoker (10/19/16) Diverticulitis of colon H/O SIGMOID COLECTOMY Surgical History S/P partial colectomy WRIST/THUMB SURGERY LEFT THUMB LEFT WRIST RIGHT THUMB Ligation of fallopian tube Trigger Finger release Rotator Cuff Repair RIGHT Extraction of cataract B/L 04/2013 Family History Mother Diabetes Essential hypertension Stroke Father , 55 Heart disease Stroke Brother , 71 Complications from surgery No problems noted. Son No problems noted. Son No problems noted. Daughter No problems noted. Daughter No problems noted. Social History Smoking/Tobacco Use Status: Former Tobacco Use tobacco type: cigarettes Quit Date: 08/04/22 Tobacco: How many years used: 63 Quit status: considering quitting Second Hand Exposure: Yes Smoking risk assessment performed?: Yes Alcohol Intake: never Drug use: Rarely Counseling given: No Counseling provided: none Caregiver/Support person: No Household members: none Housing: house Number of Children: 4 Communication Needs: Hard of Hearing Do you need help understanding health information?: Rarely Pets and animals: Yes Pets and animals: dog(s) Sexually active: No Do you think of yourself as: straight/heterosexual Current gender identity: female What is your relationship status?: How often do you talk on the phone with friends or family?: three or more times per week How often do you get together with friends or relatives?: decline to answer How often do you attend christianity or zoroastrianism services?: 4 or more times per year Do you belong to any clubs or organized social groups?: no Panel score (0-1 are the most socially isolated patients): 2 What type of physical activity do you participate in: none Duration: 15-30 minutes/day Frequency: 3-4 times per week Darlene/Jehovah'S Witness: No preference Special darlene needs: No Seatbelt use: always Helmet use: No Drive intox or ride w/intox auto transport driver: No Do you feel safe at home: Yes Do you feel safe in your relationship?: Yes Additional Social history: Pt smoked for 60yrs quit aug 2022. Discharge Plan Disposition Patient Disposition: Home Condition: Stable Discharge Details Clinical Impression: Arthritis of left hip Primary Care Provider: Samir Casillas ED Provider: Girma Quintana Home Meds and New Rx's Prescriptions: New diclofenac sodium 1 % gel 2 g topical QID Qty: 100 0RF Rx Instructions: apply to single elbow, wrist or hand; for hand includes palm/fingers/back of hand Continued Centrum Silver Women 8 mg iron-400 mcg-300 mcg tablet 1 tab PO DAILY ferrous sulfate 325 mg (65 mg iron) tablet 325 mg PO DAILY mometasone 0.1 % cream 1 applic topical BID PRN (Reason: rash) Qty: 45 0RF Rx Instructions: apply to affected area ketoconazole 2 % shampoo 1 applic topical .Twice a week PRN (Reason: seborrheic derm) Qty: 120 0RF Rx Instructions: Apply to wet scalp twice a week, leave on for 3-5 minutes, then rinse well. use for 2-4 weeks potassium chloride [K-Tab] 20 mEq tablet extended release 20 meq PO BID Qty: 180 4RF fluticasone propion-salmeterol [Advair HFA] 115-21 mcg/actuation HFA aerosol inhaler 2 puff inhalation BID Qty: 12 8RF furosemide 20 mg tablet 40 mg PO DAILY PRN (Reason: weight gain) Qty: 90 1RF Rx Instructions: when wt is >112 lbs Colace Clear 50 mg capsule 100 mg PO TID PRN (Reason: constipation) Qty: 540 4RF pantoprazole 40 mg tablet,delayed release (DR/EC) 40 mg PO DAILY@0730 Qty: 90 3RF sertraline 100 mg tablet 100 mg PO DAILY Qty: 90 3RF ipratropium-albuterol 0.5 mg-3 mg(2.5 mg base)/3 mL solution for nebulization 3 ml inhalation Q4H PRN (Reason: wheezing) Qty: 540 8RF atorvastatin 20 mg tablet 20 mg PO QHS Qty: 90 4RF Inhaler, Assist Devices [Pocket Chamber] 1 ea miscellaneous DIRECTED Qty: 0 0RF aspirin 81 mg tablet,delayed release (DR/EC) 81 mg PO DAILY Patient Comments: TAKE ONE TABLET BY MOUTH EVERY DAY Discharge Instructions Instructions: Diclofenac (On the skin), Arthritis (ED) Additional Instructions: You were seen in the emergency department for your known arthritis of left hip without new trauma, there is no palpable abnormality to the area, I do suspect you have an element of muscle strain in the hip flexor muscles as well as pain of arthritis. I am adding a topical anti-inflammatory called topical diclofenac to your regimen, trial of this for relief, I suggest you purchase some ice packs and rotate them in and out of the freezer and ice the area to complete numbness and let rewarm to room temperature frequently throughout the day. You need to follow-up with your primary care provider tomorrow morning by phone to receive referral to physical therapy while you await orthopedic follow-up. You will likely find that with physical therapy exercises your arthritis pain will lessen over time. It is not advisable to start narcotic pain management for arthritis pain in your age group due to the risk of falling and fracturing hip or causing other trauma as well as agitated delirium. Please return to the emergency department for any paralysis of the left lower extremity, severe increase in pain despite treatment, unilateral leg swelling, skin changes to the left lower leg. Referrals: [facility] [Provider Group] [facility] [Provider Group] [facility] [Provider Group] Samir Casillas NP [Primary Care Provider] -
--- NOTE | 2023-08-10 12:44 | NUR.NOTE ---
Patient called asking if she had an xray at this visit. Her PCP asked. Nursing Note:
== END 2023-08-09 19:45 | disposition home or self-care (01) ==
PROVIDERS: Emergency Provider Physician Assistant; PCP Nurse Practitioner Family
DX: M16.12 Unilateral primary osteoarthritis, left hip (principal); G40.909 Epilepsy, unspecified, not intractable, without status epilepticus; I11.0 Hypertensive heart disease with heart failure; I50.9 Heart failure, unspecified; E78.5 Hyperlipidemia, unspecified; J44.9 Chronic obstructive pulmonary disease, unspecified; Z86.73 Personal history of transient ischemic attack (TIA), and cerebral infarction without residual deficits; Z79.82 Long term (current) use of aspirin; Z87.891 Personal history of nicotine dependence; Z79.899 Other long term (current) drug therapy
CPT/HCPCS: 99283

== ENCOUNTER 2023-08-16 12:16 | Outpatient (REF) | payer MEDICARE, OTHER, SELFPAY ==
[2023-08-16 11:50] LABS: HCT 43.5 % (36.0-46.0); HGB 13.7 g/dL (11.2-15.7); MCH 30.1 pg (27.0-33.0); MCHC 31.5 % (32.0-36.0); MCV 96 fL (80-95); Platelet Count 190 10^3/uL (130-400); RBC 4.55 10^6/uL (3.93-5.22); RDW 14.2 % (11.7-14.6); RDW-SD 50.2 fL; WBC 6.85 10^3/uL (4.4-10.8)
[2023-08-16 12:07] LABS: Iron 99 ug/dL (50-170)
[2023-08-16 12:20] LABS: Ferritin 169 ng/mL (8-252)
== END 2023-08-16 12:17 | disposition home or self-care (01) ==
LOC: LBN 12:16
PROVIDERS: PCP Nurse Practitioner Family; Visit Provider Nurse Practitioner Family
DX: D64.9 Anemia, unspecified (principal); I50.9 Heart failure, unspecified
CPT/HCPCS: 85027; 82728; 83540

== ENCOUNTER → 2023-09-26 13:02 | Outpatient (BNVA) | payer MEDICARE, OTHER, SELFPAY | PROVIDERS: PCP Nurse Practitioner Family; Referring Provider Nurse Practitioner Family; Visit Provider Student in an Organized Health Care Education/Training Program | DX: M70.62 Trochanteric bursitis, left hip (principal) | CPT/HCPCS: 20611; J1040 ==

== ENCOUNTER → 2023-10-18 02:19 | Outpatient (CLI) | payer MEDICARE, OTHER, SELFPAY ==
--- NOTE | 2023-10-18 07:30 | DI.RAD_ITS ---
Exam(s) XR KNEE RT 3V AP,LAT,LAVONNE EXAM: XR KNEE RT 3V AP,LAT,LAVONNE CLINICAL HISTORY: r knee pain,m25.561. TECHNIQUE: 2D digital imaging was performed of the right knee. Three views obtained. AP, lateral an d PA tunnel views were obtained. COMPARISON: No priors for comparison. FINDINGS: BONES: No acute fracture is present. No bony destructive lesion is seen. The bones are osteopenic. JOINTS: The knee is normally aligned. No joint effusion is seen. SOFT TISSUE: Vascular calcifications are present. IMPRESSION: No acute abnormality. DATA REPOSITORY: RADIATION DOSE DELIVERED:
== END ==
PROVIDERS: PCP Nurse Practitioner Family; Visit Provider Family Medicine
DX: M25.561 Pain in right knee (principal)
CPT/HCPCS: 73562

== ENCOUNTER → 2023-10-20 10:55 | Outpatient (BNVA) | payer MEDICARE, OTHER, SELFPAY | PROVIDERS: PCP Nurse Practitioner Family; Referring Provider Nurse Practitioner Family; Visit Provider Podiatrist | DX: M79.671 Pain in right foot (principal); M25.572 Pain in left ankle and joints of left foot; M79.674 Pain in right toe(s); M79.675 Pain in left toe(s); D64.9 Anemia, unspecified; L60.3 Nail dystrophy; B35.1 Tinea unguium; I70.203 Unspecified atherosclerosis of native arteries of extremities, bilateral legs; I87.2 Venous insufficiency (chronic) (peripheral) | CPT/HCPCS: 11721 ==

== ENCOUNTER → 2023-10-26 03:54 | Outpatient (CLI) | payer MEDICARE, OTHER, SELFPAY ==
--- NOTE | 2023-10-26 06:45 | DI.RAD_ITS ---
Exam(s) XR FOOT RT COMPLETE EXAM: XR FOOT RT COMPLETE CLINICAL HISTORY: Pain in right foot third and fourth toes,m79.671. TECHNIQUE: 2D digital imaging was performed of the right foot. Three images were obtained. AP, obl ique and lateral views were obtained. COMPARISON: No exams were available for comparison FINDINGS: BONES: No acute fracture is present. No bony destructive lesion is seen. There is a small enthesophyt e at the posterior calcaneus. There is a hammertoe deformity of the 2nd and 3rd toes. JOINTS: No dislocation present. Degenerative changes are seen at the interphalangeal joints particula rly in the 3rd toe. No erosions are seen. SOFT TISSUE: Normal. IMPRESSION: 1. No acute fracture or dislocation is identified. 2. Degenerative changes in the foot. DATA REPOSITORY: RADIATION DOSE DELIVERED:
--- NOTE | 2023-10-26 06:45 | DI.RAD_ITS ---
Exam(s) XR FOOT LT COMPLETE EXAM: XR FOOT LT COMPLETE CLINICAL HISTORY: Pain in left foot,m25.572. TECHNIQUE: 2D digital imaging was performed of the left foot. Three images were obtained. AP, obli que and lateral views were obtained. COMPARISON: No exams were available for comparison FINDINGS: BONES: No acute fracture is present. No bony destructive lesion is seen. There is a small plantar analy caneal spur. There is a small enthesophyte at the posterior calcaneus. There are hammertoe deformit ies of the 2nd through 4th toes. JOINTS: No dislocation present. SOFT TISSUE: Normal. IMPRESSION: Findings as described above. DATA REPOSITORY: RADIATION DOSE DELIVERED:
== END ==
PROVIDERS: PCP Nurse Practitioner Family; Visit Provider Podiatrist
DX: M25.572 Pain in left ankle and joints of left foot (principal); M79.671 Pain in right foot
CPT/HCPCS: 73630

== ENCOUNTER → 2024-01-11 11:52 | Outpatient (BNVA) | payer MEDICARE, OTHER, SELFPAY ==
--- NOTE | 2024-01-12 12:53 | W.PFT ---
Date of service: 01/12/24 Time of Service: 08:00 Pulmonary Function Test Result Requesting Provider Emmie Nash Indications: SOB Impression Moderate obstructive ventilatory defect. Flow volume curve suggests obstruction. Clinical Correlation therefore is recommended.
== END ==
PROVIDERS: PCP Nurse Practitioner Family; Referring Provider Nurse Practitioner Family; Visit Provider Physician Assistant Surgical
DX: J41.0 Simple chronic bronchitis (principal); I27.20 Pulmonary hypertension, unspecified; R91.8 Other nonspecific abnormal finding of lung field; Z87.891 Personal history of nicotine dependence
CPT/HCPCS: 00123; 99214

== ENCOUNTER → 2024-01-18 08:39 | Outpatient (BNVA) | payer MEDICARE, OTHER, SELFPAY | PROVIDERS: PCP Nurse Practitioner Family; Referring Provider Nurse Practitioner Family; Visit Provider Physical Therapy Assistant | DX: I70.203 Unspecified atherosclerosis of native arteries of extremities, bilateral legs (principal); I87.2 Venous insufficiency (chronic) (peripheral) | CPT/HCPCS: 93922 ==

== ENCOUNTER 2024-02-29 23:58 | Emergency (ER) | payer MEDICARE, OTHER, MEDICAID, SELFPAY ==
--- NOTE | 2024-02-29 23:45 | RT.EKG_ITS ---
APPROVED REPORT Exam: Resting ECG Reason for Exam: short of breath Patient Location: E HR:113 bpm ECG Measurements Heart Rate 113 AXIS NJ 150 P 88 QRSd 78 QRS -35 QT 330 T 75 QTc 451 Conclusion Sinus tachycardia...rate> [address] depressionsV3-V6
[2024-02-29 23:56] VITALS: BP 166/135; PULSE 117; RESP 30; O2SAT 97
[2024-03-01] VITALS (93 sets, daily range): BP systolic 93–171; BP diastolic 33–95; PULSE 88–126; RESP 17–41; TEMP 36.2–36.8; O2SAT 4–98
--- NOTE | 2024-03-01 | RT.EKG_ITS ---
APPROVED REPORT Exam: Resting ECG Reason for Exam: chest pain Patient Location: E HR:113 bpm ECG Measurements Heart Rate 113 AXIS WV 126 P 62 QRSd 76 QRS -2 QT 354 T 69 QTc 484 Conclusion POSTERIOR EKG Sinus tachycardia...rate> 99 Multiple ventricular premature complexes...V complexes w/ short R-R intervls appropriate intervals no ST segment changes to suggest occlusive KS
--- NOTE | 2024-03-01 | DI.RAD_ITS ---
Exam(s) XR PORTABLE CHEST AP EXAM: XR PORTABLE CHEST AP CLINICAL HISTORY: sob TECHNIQUE: 2D digital imaging was performed. COMPARISON: CR,XR XR PORTABLE CHEST AP from 04/23/2023 FINDINGS: LUNGS: Underlying fibrotic changes. Mild vascular prominence. Question of infiltrate at the right l ian base. No pleural abnormality seen. HEART: Normal size. AORTA: Normal diameter. BONES: Unremarkable for age. Soft tissues: Unremarkable. IMPRESSION: Question of infiltrate at the right lung base. DATA REPOSITORY: RADIATION DOSE DELIVERED:
--- NOTE | 2024-03-01 00:25 | ED.GENADUL_ITS ---
Discharge Plan Disposition Patient Disposition: Transfer-Acute Inpatient Care Specific Acute Inpt Facility: Other Condition: Critical Discharge Details Clinical Impression: Acute non-ST elevation myocardial infarction (NSTEMI), COPD (chronic obstructive pulmonary disease), CHF (congestive heart failure), Acute hypoxemic respiratory failure, Chest pain Primary Care Provider: Samir Casillas ED Provider: Ana Mckinney Home Meds and New Rx's Prescriptions: No Action Centrum Silver Women 8 mg iron-400 mcg-300 mcg tablet 1 tab PO DAILY ferrous sulfate 325 mg (65 mg iron) tablet 325 mg PO DAILY mometasone 0.1 % cream 1 applic topical BID PRN (Reason: rash) Qty: 45 0RF Rx Instructions: apply to affected area ketoconazole 2 % shampoo 1 applic topical .Twice a week PRN (Reason: seborrheic derm) Qty: 120 0RF Rx Instructions: Apply to wet scalp twice a week, leave on for 3-5 minutes, then rinse well. use for 2-4 weeks potassium chloride [K-Tab] 20 mEq tablet extended release 20 meq PO BID Qty: 180 4RF fluticasone propion-salmeterol [Advair HFA] 115-21 mcg/actuation HFA aerosol inhaler 2 puff inhalation BID Qty: 12 8RF Colace Clear 50 mg capsule 100 mg PO TID PRN (Reason: constipation) Qty: 540 4RF furosemide 20 mg tablet 40 mg PO DAILY Qty: 180 1RF ketoconazole 2 % cream 1 applic topical DAILY Qty: 120 6RF Rx Instructions: Apply to toenails once daily ipratropium-albuterol 0.5 mg-3 mg(2.5 mg base)/3 mL solution for nebulization 3 ml inhalation Q4H PRN (Reason: wheezing) Qty: 540 8RF atorvastatin 20 mg tablet 20 mg PO QHS Qty: 90 4RF tramadol 50 mg tablet 50 mg PO Q8H PRN (Reason: pain) Qty: 30 0RF pantoprazole 40 mg tablet,delayed release (DR/EC) 40 mg PO DAILY@0730 Qty: 90 3RF sertraline 100 mg tablet 100 mg PO DAILY Qty: 90 3RF Inhaler, Assist Devices [Pocket Chamber] 1 ea miscellaneous DIRECTED Qty: 0 0RF diclofenac sodium 1 % gel 2 g topical QID Qty: 100 0RF Rx Instructions: apply to single elbow, wrist or hand; for hand includes palm/fingers/back of hand HPI General Mode of arrival: EMS . Date/Time Provider Initiated Documentation: 03/01/24 00:03 . Limitations to Documentation: no limitations . Information obtained by: patient and EMS . HPI Narrative: 83yo F with hx CVA with L hemiparesis, COPD, HTN, CHF with pulmonary hypertension, presenting with shortness of breath. Reports feeling well this morning. About 3 hours ago developed left sided chest pain, sharp, radiating into her neck. At rest at onset. This persisted, constant, not worsening. No alleviating or aggravating factors. Soemewhat pleuritic. About an hour ago began to feel short of breath and wheezing. For EMS O2 sat 78% on their arrival, increased to 90+% on 10L NRB. Given 324 of asprin TALENT DEVELOPMENT COORDINATOR as well as albuterol x 3. She reports her breathing feels much better now but her chest pain persists. Otherwise in her usual state of health with no fevers, chills, rash, nausea, vomiting, abdominal pain, back pain, LE edema, or other concerns. Related Data Home Medications ?Medication ?Instructions ?Recorded ?Confirmed cmlvelnx-onyg-ools 8 mg-folic 400 1 tab PO DAILY 07/18/20 03/01/24 mcg-K 50 mcg-lutein 300 mcg tablet (Centrum Silver Women) Inhaler, Assist Devices [Pocket 1 ea miscellaneous DIRECTED ##0 10/13/22 03/01/24 Chamber] ipratropium 0.5 mg-albuterol 3 mg 3 ml inhalation Q4H PRN wheezing 01/07/23 (2.5 mg base)/3 mL nebulization #540 mL soln ferrous sulfate 325 mg (65 mg 325 mg PO DAILY 04/04/23 03/01/24 iron) tablet ketoconazole 2 % shampoo 1 applic topical .Twice a week PRN 04/04/23 03/01/24 seborrheic derm #120 mL mometasone 0.1 % topical cream 1 applic topical BID PRN rash #45 04/04/23 03/01/24 grams potassium chloride 20 mEq 20 meq PO BID #180 tabs 04/04/23 03/01/24 tablet,extended release (K-Tab) atorvastatin 20 mg tablet 20 mg PO QHS #90 tabs 05/17/23 03/01/24 docusate sodium 50 mg capsule 100 mg (2 x 50 mg) PO TID PRN 05/17/23 03/01/24 (Colace Clear) constipation #540 caps fluticasone propionate 115 2 puff inhalation BID #12 grams 07/15/23 03/01/24 mcg-salmeterol 21 mcg/actuation HFA inhaler (Advair HFA) diclofenac sodium 1 % topical gel 2 g topical QID L hip pain #100 08/09/23 03/01/24 grams tramadol 50 mg tablet 50 mg PO Q8H PRN pain #30 tabs 08/12/23 03/01/24 ketoconazole 2 % topical cream 1 applic topical DAILY #120 grams 10/20/23 03/01/24 furosemide 20 mg tablet 40 mg (2 x 20 mg) PO DAILY weight 10/25/23 03/01/24 gain #180 tabs pantoprazole 40 mg tablet,delayed 40 mg PO DAILY@0730 #90 tabs 12/29/23 03/01/24 release sertraline 100 mg tablet 100 mg PO DAILY #90 tabs 01/17/24 03/01/24 Previous Rx's ?Medication ?Instructions ?Recorded Inhaler, Assist Devices [Pocket 1 ea miscellaneous DIRECTED ##0 10/13/22 Chamber] ipratropium 0.5 mg-albuterol 3 mg 3 ml inhalation Q4H PRN wheezing 01/07/23 (2.5 mg base)/3 mL nebulization #540 mL soln ketoconazole 2 % shampoo 1 applic topical .Twice a week PRN 04/04/23 seborrheic derm #120 mL mometasone 0.1 % topical cream 1 applic topical BID PRN rash #45 04/04/23 grams potassium chloride 20 mEq 20 meq PO BID #180 tabs 04/04/23 tablet,extended release (K-Tab) atorvastatin 20 mg tablet 20 mg PO QHS #90 tabs 05/17/23 docusate sodium 50 mg capsule 100 mg (2 x 50 mg) PO TID PRN 05/17/23 (Colace Clear) constipation #540 caps fluticasone propionate 115 2 puff inhalation BID #12 grams 07/15/23 mcg-salmeterol 21 mcg/actuation HFA inhaler (Advair HFA) diclofenac sodium 1 % topical gel 2 g topical QID L hip pain #100 08/09/23 grams tramadol 50 mg tablet 50 mg PO Q8H PRN pain #30 tabs 08/12/23 ketoconazole 2 % topical cream 1 applic topical DAILY #120 grams 10/20/23 furosemide 20 mg tablet 40 mg (2 x 20 mg) PO DAILY weight 10/25/23 gain #180 tabs pantoprazole 40 mg tablet,delayed 40 mg PO DAILY@0730 #90 tabs 12/29/23 release sertraline 100 mg tablet 100 mg PO DAILY #90 tabs 01/17/24 Allergies Allergy/AdvReac Type Severity Reaction Status Date / Time baclofen AdvReac Intermediate mental Verified 03/01/24 00:00 status changes General Stated Complaint: SOB IFTIKHAR: 3 Review of Systems Narrative: see HPI Exam Narrative Exam Narrative: General: Alert, in no acute distress. Head: Normocephalic, atraumatic Neck: Trachea midline, ?Neck supple. ENT: ?MMM.? Cardiac: ?Tachycardiac, regular, no murmurs appreciated Resp: Expiratory wheeze and rhonchi bilaterally. No increased work of breathing. Abd: ?Soft, non-distended, nontender : ?No suprapubic tenderness. Extremities: ?No deformities.? No peripheral edema. Neurologic: GCS 15. ? Course Vital Signs Vital signs: Vital Signs Pulse 117 H 02/29/24 23:56 Respiratory Rate 30 H 02/29/24 23:56 Blood Pressure 166/135 H 02/29/24 23:56 Pulse Oximetry 97 02/29/24 23:56 Temperature 36.8 C 03/01/24 00:00 Temperature Source Temporal Artery Scan 03/01/24 00:00 Pulse 117 H 02/29/24 23:56 Respiratory Rate 24 03/01/24 00:01 Respiratory Effort Incrsd Work of Breathing 03/01/24 00:01 Respiratory Depth Normal 03/01/24 00:01 Respiratory Pattern Normal 03/01/24 00:01 Blood Pressure 166/135 H 02/29/24 23:56 Blood Pressure Position Sitting 02/29/24 23:56 Pulse Oximetry 95 03/01/24 00:03 Oxygen Delivery Method Nasal Cannula 03/01/24 00:03 Oxygen Flow Rate 4 03/01/24 00:03 Pain Level 7 03/01/24 00:01 Medical Decision Making 83yo F with hx CVA with L hemiparesis, COPD, HTN, CHF with pulmonary hypertension (unknown EF), presenting with shortness of breath. [place] well this morning; about 3 hours TALENT DEVELOPMENT COORDINATOR while at rest developed left sided chest pain, sharp, radiating into her neck. About an hour ago began to feel short of breath and wheezing. For EMS O2 sat 78% on their arrival, increased to 90+% on 10L NRB. Given 324 of asprin TALENT DEVELOPMENT COORDINATOR as well as albuterol x 3. She reports her breathing feels much better now but her chest pain persists albeit is now mild. Hypertensive on arrival 160's/130's with HR in 110's. On arrival O2 sat 95% on NRB. Diffuse expiratory wheeze and rhonchi bilaterally, tachypeniec but otherwise no increased work of breathing. EKG sinus tachycardia, appropriate intervals, ST depressions V3-V6 concerning for possible posterior STEMI. Posterior EKG obtained and shows no clear ST elevation. Presentation remains highly suspicion for acute cardiac pathology given onset of chest prior to shortness of breath, though COPD also possible. Hypoxia/tachycardia/pleurtic pain also concerning for pulmonary embolism. Less likely aortic dissection. CXR independently reviewed, no focal pneumonia or pneumothorax on my view, agree with radiology read below. Labs reviewed as below, CBC with leukoctysois to 16.8 (non specific) and no anemia, CMP with mild hypokalemia at 3.1 in the setting of multiple doses of albuterol, Cr elevated at 1.9 (baseline appears to be ~1.3 on [facility] record review), Mg normal, VBG with mild respiratory acidosis/hypercapnea with pH 7.32 pCO2 55, BNP elevated at 753 which appears to be her baseline, initial troponin 423. 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 If pulmonary embolism present would change to PE dose heparin, otherwise add ticagrelor for ACS. [facility] cardiology consulted. There may be a component of CHF contributing to her hypoxia though she does not appear overtly volume overloaded on exam; will diuresis with 40mg IV lasix, oral potassium repletion given mild hyokalemia though expect will increase somewhat as shift from albuterol resolves. CT independently reviewed, no large saddle embolus or clear dissection on my view, radiology read below with no pulmonary embolism. Added ticag. Discussed with [facility] cardiology, agree with management thus far. Warrants ischemic eval however no capacity, advised transfer to facility to cath ability. [facility], [place], [facility], [facility], [facility] Pt does report worsening chest pain; repeat EKG with no dynamic changes. Delta troponin pending. Given two doses of SL nitro without significant relief and so started on nitro gtt with rapid resolution of pain. Discussed with [facility] transfer center; accepted ED to ED under Dr. Rachel. Plan for transfer via [facility] when available at 0730. Patient remains chest pain free with nitro at 10; troponin continues trending upward 1083, 1227. [facility] to bedside at 0720 for transfer. Medical Records Medical records reviewed: Yes I reviewed the patient's medical records. Imaging Data Radiologic Study: Imaging: X-Ray Radiologist's impression: IMPRESSION: Bibasilar opacities. Consider atelectasis, scarring, infection. Follow-up this clinically warranted. Radiologic Study #2: Imaging: CT Scan Radiologist's impression: IMPRESSION: 1. No definite pulmonary embolus identified, within the limitations noted above. 2. Consolidation at the right lung base. Consider atelectasis, pneumonia. Follow-up as clinically warranted. Quality:[facility] Health Related Social Needs: No Data to Display Critical Care Time Critical Care Time Critical Care Time: Yes Total Critical Care Time: 45 Attestation: Due to a high probability of clinically significant, life threatening deterioration, the patient required my highest level of preparedness to intervene emergently and I personally spent this critical care time directly and personally managing the patient. This critical care time included obtaining a history; examining the patient; pulse oximetry; ordering and review of studies; arranging urgent treatment with development of a management plan; evaluation of patient's response to treatment; frequent reassessment; and, discussions with other providers. This critical care time was performed to assess and manage the high probability of imminent, life-threatening deterioration that could result in multi-organ failure. It was exclusive of separately billable procedures PFSH All Active Problems (Updated 03/01/24 @ 04:23 by Ana Mckinney MD) Chest pain (Acute) Acute hypoxemic respiratory failure (Acute) CHF (congestive heart failure) (Chronic) COPD (chronic obstructive pulmonary disease) (Chronic) Acute non-ST elevation myocardial infarction (NSTEMI) (Acute) Venous insufficiency (Acute) Atherosclerosis of artery of both lower extremities (Acute) Onychomycosis (Acute) Pain in joint, foot, left (Acute) Pain in right foot (Acute) Knee pain, right (Acute) Trochanteric bursitis of left hip (Acute) Left hip pain (Acute) POCUS 09/26/23 Toe pain, left (Acute) Toe pain, right (Acute) Essential hypertension (Chronic 03/30/13) Hyperlipidemia (Acute) Former cigarette smoker (Acute) Congestive heart failure (Chronic) Pleural effusion (Acute) Anemia (Chronic) Pulmonary nodules/lesions, multiple (Acute) Pulmonary hypertension (Acute) Left hemiparesis (Acute) 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 Due repeat MRI in 10/2022. Counseling regarding advanced directives and goals of care (Acute) CVA (cerebral vascular accident) (Chronic) Neuro est. between 04/2020-11/2021 Grief reaction (Chronic) Spouse 08/13/21 passed Carotid stenosis, left (Acute) 50-69% stenosis 04/2022; complete obstruction right internal carotid. Shoulder arthralgia (Chronic) Polyp of colon (Acute) tubular adenoma Peripheral vascular disease (Acute) Jul 2014 [facility] aorto bifem bypass LEFT ILIAC STENT [facility] 03/2010 Lumbago (Chronic 05/10/13) Constipation (Chronic 11/14/17) Chronic obstructive lung disease (Acute) PFT'S 2009 FEV 1.15=59% continues to smoke Medical History Pleural effusion Ischemic cerebrovascular accident (CVA) due to atherosclerosis of large extracranial artery Perichondritis Disorder of ear, left Hand pain, left Anxiety about health Seizures Smoker (10/19/16) Diverticulitis of colon H/O SIGMOID COLECTOMY Surgical History S/P partial colectomy WRIST/THUMB SURGERY LEFT THUMB LEFT WRIST RIGHT THUMB Ligation of fallopian tube Trigger Finger release Rotator Cuff Repair RIGHT Extraction of cataract B/L 04/2013 Family History Mother Diabetes Essential hypertension Stroke Father , 55 Heart disease Stroke Brother , 71 Complications from surgery No problems noted. Son No problems noted. Son No problems noted. Daughter No problems noted. Daughter No problems noted. Social History Smoking/Tobacco Use Status: Former Tobacco Use tobacco type: cigarettes Quit Date: 08/04/22 Tobacco: How many years used: 63 Quit status: considering quitting Second Hand Exposure: Yes Smoking risk assessment performed?: Yes Alcohol Intake: never Drug use: Rarely Counseling given: No Counseling provided: none Caregiver/Support person: No Household members: none Housing: house Number of Children: 4 Communication Needs: Hard of Hearing Do you need help understanding health information?: Rarely Pets and animals: Yes Pets and animals: dog(s) Sexually active: No Do you think of yourself as: straight/heterosexual Current gender identity: female What is your relationship status?: How often do you talk on the phone with friends or family?: three or more times per week How often do you get together with friends or relatives?: decline to answer How often do you attend congregational or orthodoxy services?: 4 or more times per year Do you belong to any clubs or organized social groups?: no Panel score (0-1 are the most socially isolated patients): 2 What type of physical activity do you participate in: none Duration: 15-30 minutes/day Frequency: 3-4 times per week Darlene/Voodoo: No preference Special darlene needs: No Seatbelt use: always Helmet use: No Drive intox or ride w/intox crude oil driver: No Do you feel safe at home: Yes Do you feel safe in your relationship?: Yes Additional Social history: Pt smoked for 60yrs quit aug 2022.
--- NOTE | 2024-03-01 00:45 | DI.CT_ITS ---
Exam(s) CT CHEST PE CTA EXAM: CT CHEST PE CTA CLINICAL HISTORY: tachycardia, hypoxia. TECHNIQUE: Imaging Protocol: Axial CT angiography was performed with multi-slice acquisition and mu lti-planar reconstructions as well as axial, coronal and sagittal MIP reconstructions. CONTRAST MATERIAL: Intravenous: Omnipaque 350 Contrast volume:100 ml COMPARISON: CT CT CHEST PE CTA from 10/08/2022 CR,XR XR PORTABLE CHEST AP from 03/01/2024 FINDINGS: Pulmonary Arteries: No evidence of filling defect to suggest pulmonary emboli. Tracheobronchial tree: No mucous plugging. Mediastinum and Natasha: No dominant adenopathy or fluid collection. Pulmonary parenchyma: Infiltrate right lower lobe. No dominant measurable mass. Vascular prominenc e. Mildly increased interstitial greater posteriorly consistent with some dependent edema and expira tory changes.. Pleura: No effusion or pneumothorax. Heart: The heart is not dilated. Mitral annular calcification. Coronary artery calcifications are s een. Aorta: Thoracic aorta non-dilated. No dissection. Atherosclerotic changes. Upper abdomen: No acute findings. Bones: Unremarkable for age. Tubes, Catheters, and Lines: None Soft tissues: Unremarkable. IMPRESSION: No evidence of pulmonary embolism. Right lower lobe infiltrate. RADIATION DOSE DELIVERED: 74.57mGy.cm Total DLP DATA REPOSITORY: All CT scans at this facility are submitted to the National Radiology Data Registry (NRDR) Dose Index Registry (DIR) with the [employer] (A[employer]). RADIATION OPTIMIZATION: All CT scans at this facility use at least one of these dose optimization te chniques: automated exposure control; mA and/or kV adjustment per patient size (includes targeted exa ms where dose is matched to clinical indication); or iterative reconstruction.
[2024-03-01 01:12] LABS: ALT 32 U/L (14-59); AST 27 U/L (15-37); Albumin 4.1 g/dL (3.4-5.0); Alkaline Phosphatase 83 U/L (46-116); Anion Gap 7.7 mmol/L (3-11); BUN 36 mg/dL (7-18); Bilirubin, Total 0.45 mg/dL (0.2-1.0); CO2 28.3 mmol/L (21.0-32.0); CREATININE 1.9 mg/dL (0.55-1.02); Calcium 9.4 mg/dL (8.5-10.1); Chloride 102 mmol/L (98-107); Glucose 197 mg/dL (74-106); Magnesium 1.8 mg/dL (1.8-2.4); Potassium 3.1 mmol/L (3.5-5.1); Sodium 138 mmol/L (136-145); Total Protein 7.4 g/dL (6.4-8.2)
[2024-03-01 01:20] LABS: Troponin I 423 ng/L (< or =60)
[2024-03-01] MEDS: Omnipaque 350 MG/ML 100 ML BTL IJ (01:28)
[2024-03-01] MEDS: Normal Saline - Diluent 50 ML VIAL IJ (01:28)
[2024-03-01 01:35] LABS: Abs Immature Grans 0.07 10^3/uL (0.0-0.06); Absolute Basophil Count 0.03 10^3/uL (0.0-0.2); Absolute Eosinophil Count 0.02 10^3/uL (0.0-0.7); Absolute Lymphocyte Count 0.93 10^3/uL (1.2-3.4); Absolute Monocyte Count 1.05 10^3/uL (0.1-0.8); Absolute Neutrophil Count 14.78 10^3/uL (1.2-6.7); Basophils % 0.2 %; Eosinophils % 0.1 %; HCT 41.2 % (36.0-46.0); Immature Grans % 0.4 %; Lymphocytes % 5.5 %; MCH 31.1 pg (27.0-33.0); MCHC 31.6 % (32.0-36.0); MCV 99 fL (80-95); MPV 10.1 fL (8.0-11.0); Monocytes % 6.2 %; Neutrophils % 87.6 %; Platelet Count 148 10^3/uL (130-400); RBC 4.18 10^6/uL (3.93-5.22); RDW 13.5 % (11.7-14.6); RDW-SD 49.2 fL; WBC 16.87 10^3/uL (4.4-10.8)
[2024-03-01 01:39] LABS: Lipase 46 U/L (16-77); NT-proBNP 753 pg/mL (<300)
--- NOTE | 2024-03-01 01:45 | DI.VRAD_ITS ---
PROCEDURE INFORMATION: Exam: CTA Chest With Contrast Exam date and time: 03/01/2024 1:11 AM Age: 83 years old Clinical indication: Other: Tachycardia, hypoxia TECHNIQUE: Imaging protocol: Computed tomographic angiography of the chest with contrast. Exam focused on the arteries. 3D rendering (Not supervised by radiologist): MIP and/or 3D reconstructed images were created by the technologist. Contrast material: OMNI 350; Contrast volume: 100 ml; Contrast route: INTRAVENOUS (IV); COMPARISON: CT THORAX ABD/PEL CTA 01/16/2023 5:21 PM FINDINGS: Limitations: Images degraded due to artifact caused by patient motion and arm positioning. Pulmonary arteries: No definite pulmonary embolus identified, within the limitations noted above. Aorta: Atherosclerotic changes in the aorta and its branches. Lungs: Dependent changes are present in the lungs. Denser consolidation at the right lung base. Pleural spaces: No pleural effusion. Heart: No pericardial effusion. Coronary arteries: Extensive coronary artery calcifications. Lymph nodes: Mild mediastinal lymphadenopathy. Adrenal glands: Adrenal thickening. Bones/joints: No acute pertinent abnormality seen. Soft tissues: No acute pertinent abnormality seen. IMPRESSION: 1. No definite pulmonary embolus identified, within the limitations noted above. 2. Consolidation at the right lung base. Consider atelectasis, pneumonia. Follow-up as clinically warranted. Dictated and Authenticated by: Shantelle Pulido MD. Ordering:RAMÍREZ Perez MD
[2024-03-01] MEDS: Heparin in 0.45% NaCl 25,000 UNIT/250 ML BAG 7.5 UNIT IV (01:46)
[2024-03-01 02:08] LABS: Bilirubin Negative (Negative); Blood Trace-intact (Negative); Clarity Clear (Clear); Glucose Negative (Negative); Ketones Negative (Negative); Leukocyte Esterase Trace (Negative); Nitrite Negative (Negative); Urobilinogen 0.2 mg/dL (Up to 0.2); pH 5.5 (5-8)
[2024-03-01] MEDS: Furosemide 40 MG/4 ML VIAL IVP (02:11)
[2024-03-01] MEDS: Ticagrelor 90 MG TAB 180 MG PO (02:11)
[2024-03-01] MEDS: Potassium Chloride Liquid 20 MEQ PKT PO (02:11)
[2024-03-01 02:15] LABS: Bacteria Rare HPF (Negative); Epithelial Cells Rare HPF (Negative); RBC 0-2 HPF (0-2)
[2024-03-01 02:16] LABS: C & S Indicated? No; Casts Negative LPF (Negative); Crystals Negative HPF (Negative); Mucus Moderate (Negative)
[2024-03-01 03:21] LABS: INR 1.1 (0.9-1.1); PTT Activated 23.6 sec (23.6-32.8); Prothrombin Time 10.6 sec (9.1-11.1)
[2024-03-01 03:38] LABS: COVID-19 PCR Negative (Negative); Influenza A PCR Negative (Negative); Influenza B PCR Negative (Negative); RSV PCR Negative (Negative)
--- NOTE | 2024-03-01 03:45 | RT.EKG_ITS ---
APPROVED REPORT Exam: Resting ECG Reason for Exam: chest pain Patient Location: E HR:104 bpm ECG Measurements Heart Rate 104 AXIS ME 140 P 73 QRSd 81 QRS -45 QT 368 T 76 QTc 478 Conclusion Sinus tachycardia...rate> [address] segment changes to suggest occlusive MN
[2024-03-01 03:46] LABS: Source Nasopharynx
[2024-03-01] MEDS: nitroGLYcerin 0.4 MG TAB SL ×2 (03:51→03:56)
[2024-03-01] MEDS: nitroGLYcerin in D5W 50 MG/250 ML BTL IV (04:08)
[2024-03-01 04:39] LABS: pCO2 (Venous) 55 mmHg (41-51); pH (Venous) 7.33 (7.31-7.41); pO2 (Venous) 28 mmHg
[2024-03-01 05:03] LABS: TCO2 (Venous) 31 mmol/L (24-29)
[2024-03-01 05:05] LABS: BE (Venous) 3 mmol/L (-2-3); HCO3 (Venous) 29 mmol/L (23-28); O2 Sat (Venous) 46 %
[2024-03-01 05:08] LABS: Lactate 2.37 mmol/L (0.9-1.7)
[2024-03-01 05:11] LABS: Troponin I 1083 ng/L (< or =60)
[2024-03-01 06:33] LABS: Troponin I 1227 ng/L (< or =60)
[2024-03-01 07:00] LABS: PTT Activated 110.9 sec (23.6-32.8)
== END 2024-03-01 07:41 | disposition short-term general hospital (02) ==
PROVIDERS: Emergency Provider Student in an Organized Health Care Education/Training Program; PCP Nurse Practitioner Family
DX: I21.4 Non-ST elevation (NSTEMI) myocardial infarction (principal); J44.9 Chronic obstructive pulmonary disease, unspecified; J96.01 Acute respiratory failure with hypoxia; I69.354 Hemiplegia and hemiparesis following cerebral infarction affecting left non-dominant side; I11.0 Hypertensive heart disease with heart failure; I50.9 Heart failure, unspecified; Z79.899 Other long term (current) drug therapy
CPT/HCPCS: 36415; 51702; 71275; 80053; 82805; 83690; 87637; 93005; 96374; 99291; 71045; 81003; 81015; 83605; 83735; 83880; 84484; 85025; 85610; 85730; 93010; J1644; J1940; J2305; J3490

== ENCOUNTER 2024-03-19 03:30 | Outpatient (CLI) | payer MEDICARE, OTHER, MEDICAID, SELFPAY ==
--- NOTE | 2024-03-19 08:45 | DI.RAD_ITS ---
Exam(s) XR CHEST 2V PA LATERAL EXAM: XR CHEST 2V PA LATERAL CLINICAL HISTORY: fatigue and chest congestion, R09.89. TECHNIQUE: 2D digital imaging was performed. COMPARISON: CR,XR XR PORTABLE CHEST AP from 03/01/2024 FINDINGS: 2 views: Heart size is normal. The mediastinum is not widened. Left lung is clear but there is infiltrate evident in the medial right lung adjacent to the heart bor deena, specifically within the medial segment of the right middle lobe. There are no pleural effusions . IMPRESSION: Right middle lobe infiltrate involving the medial segment of the right middle lobe. There are no ple ural effusions. DATA REPOSITORY: RADIATION DOSE DELIVERED:
== END 2024-03-19 03:50 ==
LOC: DI 03:30
PROVIDERS: PCP Nurse Practitioner Family; Visit Provider Family Medicine
DX: R91.8 Other nonspecific abnormal finding of lung field (principal)
CPT/HCPCS: 71046

== ENCOUNTER 2024-03-20 21:04 | Outpatient (REF) | payer MEDICARE, OTHER, MEDICAID, SELFPAY ==
[2024-03-20 14:16] LABS: Abs Immature Grans 0.05 10^3/uL (0.0-0.06); Absolute Basophil Count 0.03 10^3/uL (0.0-0.2); Absolute Eosinophil Count 0.19 10^3/uL (0.0-0.7); Absolute Lymphocyte Count 1.89 10^3/uL (1.2-3.4); Absolute Monocyte Count 0.62 10^3/uL (0.1-0.8); Absolute Neutrophil Count 5.24 10^3/uL (1.2-6.7); Basophils % 0.4 %; Eosinophils % 2.4 %; HCT 40.8 % (36.0-46.0); HGB 12.7 g/dL (11.2-15.7); Immature Grans % 0.6 %; Lymphocytes % 23.6 %; MCH 30.8 pg (27.0-33.0); MCHC 31.1 % (32.0-36.0); MCV 99 fL (80-95); Monocytes % 7.7 %; Neutrophils % 65.3 %; Platelet Count 270 10^3/uL (130-400); RBC 4.13 10^6/uL (3.93-5.22); RDW 14.1 % (11.7-14.6); RDW-SD 50.7 fL; WBC 8.02 10^3/uL (4.4-10.8)
[2024-03-20 14:35] LABS: ALT 30 U/L (14-59); AST 25 U/L (15-37); Albumin 3.9 g/dL (3.4-5.0); Alkaline Phosphatase 84 U/L (46-116); Anion Gap 9.2 mmol/L (3-11); BUN 23 mg/dL (7-18); Bilirubin, Total 0.45 mg/dL (0.2-1.0); CO2 28.8 mmol/L (21.0-32.0); CREATININE 1.6 mg/dL (0.55-1.02); Calcium 9.9 mg/dL (8.5-10.1); Chloride 105 mmol/L (98-107); Glucose 97 mg/dL (74-106); Hemoglobin A1C 6.4 % (<5.7); Sodium 143 mmol/L (136-145); TSH (W/Ref FT4) 4.23 uIU/mL (0.36-3.74); Total Protein 7.3 g/dL (6.4-8.2)
[2024-03-20 14:53] LABS: FREE T4 0.93 ng/dL (0.76-1.46)
== END 2024-03-20 21:05 | disposition home or self-care (01) ==
LOC: LBN 21:04
PROVIDERS: PCP Nurse Practitioner Family; Visit Provider Nurse Practitioner Family
DX: I10 Essential (primary) hypertension (principal); Z71.89 Other specified counseling; I50.9 Heart failure, unspecified; R53.83 Other fatigue; E03.9 Hypothyroidism, unspecified; E11.9 Type 2 diabetes mellitus without complications; J18.9 Pneumonia, unspecified organism
CPT/HCPCS: 80053; 83036; 84439; 84443; 85025

== ENCOUNTER → 2024-05-02 13:29 | Outpatient (BNVA) | payer MEDICARE, OTHER, MEDICAID, SELFPAY | PROVIDERS: PCP Nurse Practitioner Family; Referring Provider Nurse Practitioner Family; Visit Provider Podiatrist | DX: L60.3 Nail dystrophy (principal); B35.1 Tinea unguium; M79.671 Pain in right foot; D64.9 Anemia, unspecified; I70.203 Unspecified atherosclerosis of native arteries of extremities, bilateral legs; I87.2 Venous insufficiency (chronic) (peripheral) | CPT/HCPCS: 11721 ==

== ENCOUNTER 2024-06-01 17:45 | Inpatient (IN) | payer MEDICARE, OTHER, SELFPAY ==
[2024-06-01] VITALS (22 sets, daily range): BP systolic 113–151; BP diastolic 55–119; PULSE 70–107; RESP 2–25; TEMP 36.2–36.9; O2SAT 93–96
--- NOTE | 2024-06-01 17:30 | RT.EKG_ITS ---
APPROVED REPORT Exam: Resting ECG Reason for Exam: difficulty breathing Patient Location: E HR:103 bpm ECG Measurements Heart Rate [address] [id number] P [id number] QRSd 87 QRS 243 QT 358 T 61 QTc 468 Conclusion Atrial fib, rate 103 Q waves V1-V3 Significant artifact No STEMI
--- NOTE | 2024-06-01 18:00 | DI.RAD_ITS ---
Exam(s) XR CHEST 2V PA LATERAL EXAM: XR CHEST 2V PA LATERAL CLINICAL HISTORY: shortness of breath TECHNIQUE: 2D digital imaging was performed of the chest. Two images were obtained. PA and lateral views were obtained. COMPARISON: CR XR CHEST 2V PA LATERAL from 03/19/2024 FINDINGS: MEDIASTINUM: Normal. HEART: Normal. PULMONARY VASCULATURE: Normal. LUNGS: The lungs are hyperinflated with flattened diaphragms suggesting underlying COPD. No focal in filtrates are seen. PLEURAL SPACE: No pleural effusion or pneumothorax. BONE:Within normal limits for the patient's age. OTHER FINDINGS:Normal. IMPRESSION: No acute pulmonary findings. DATA REPOSITORY: RADIATION DOSE DELIVERED:
[2024-06-01 18:22] LABS: BE (Venous) 4 mmol/L (-2-3); HCO3 (Venous) 29 mmol/L (23-28); Lactate 1.5 mmol/L (0.6-1.4); O2 Sat (Venous) 77 %; TCO2 (Venous) 26 mmol/L (24-29); pCO2 (Venous) 48 mmHg (41-51); pH (Venous) 7.39 (7.31-7.41); pO2 (Venous) 42 mmHg
[2024-06-01 18:23] LABS: Abs Immature Grans 0.06 10^3/uL (0.0-0.06); Absolute Basophil Count 0.03 10^3/uL (0.0-0.2); Absolute Monocyte Count 1.13 10^3/uL (0.1-0.8); Absolute Neutrophil Count 10.73 10^3/uL (1.2-6.7); Basophils % 0.2 %; Eosinophils % 0.7 %; HCT 44.5 % (36.0-46.0); HGB 13.8 g/dL (11.2-15.7); Immature Grans % 0.4 %; MCV 97 fL (80-95); MPV 9.9 fL (8.0-11.0); Monocytes % 8.2 %; Neutrophils % 77.5 %; Platelet Count 171 10^3/uL (130-400); RDW 13.3 % (11.7-14.6); RDW-SD 47.8 fL; WBC 13.84 10^3/uL (4.4-10.8)
[2024-06-01] MEDS: Albuterol/Ipratropium 3 ML UPD VIAL (18:28)
[2024-06-01] MEDS: methylPREDNISolone SUCC 125 MG VIAL 80 MG IVP (18:28)
[2024-06-01 18:46] LABS: ALT 26 U/L (14-59); AST 22 U/L (15-37); Albumin 4.5 g/dL (3.4-5.0); Alkaline Phosphatase 88 U/L (46-116); Anion Gap 9.5 mmol/L (3-11); BUN 34 mg/dL (7-18); Bilirubin, Total 0.48 mg/dL (0.2-1.0); CO2 30.5 mmol/L (21.0-32.0); CREATININE 1.4 mg/dL (0.55-1.02); Calcium 9.4 mg/dL (8.5-10.1); Chloride 106 mmol/L (98-107); Glucose 112 mg/dL (74-106); Magnesium 2.1 mg/dL (1.8-2.4); NT-proBNP 2365 pg/mL (<300); Potassium 3.3 mmol/L (3.5-5.1); Sodium 146 mmol/L (136-145); Total Protein 8.2 g/dL (6.4-8.2); Troponin I 41 ng/L (<or=51)
[2024-06-01 19:00] LABS: COVID-19 PCR Negative (Negative); Influenza A PCR Negative (Negative); Influenza B PCR Negative (Negative); RSV PCR Negative (Negative)
[2024-06-01 19:02] LABS: Source NASOPHARYNX
[2024-06-01 19:13] LABS: Procalcitonin < 0.10 ng/mL
[2024-06-01 19:53] LABS: Troponin I 38 ng/L (<or=51)
--- NOTE | 2024-06-01 20:00 | RT.EKG_ITS ---
APPROVED REPORT Exam: Resting ECG Reason for Exam: tachycardia Patient Location: E HR:103 bpm ECG Measurements Heart Rate 103 AXIS IL 157 P 85 QRSd 85 QRS 32 QT 364 T 66 QTc 465 Conclusion Sinus rhythm, rate 103 Frequent PACs Compared to priors, artifact improved, no evidence for a-fib No STEMI
--- NOTE | 2024-06-01 20:11 | ED.GENADUL_ITS ---
Discharge Plan Discharge Details Chief Complaint: SOB Primary Care Provider: Samir Casillas ED Provider: Cheyanne Hyatt Home Meds and New Rx's Prescriptions: No Action Centrum Silver Women 8 mg iron-400 mcg-300 mcg tablet 1 tab PO DAILY ferrous sulfate 325 mg (65 mg iron) tablet 325 mg PO DAILY mometasone 0.1 % cream 1 applic topical BID PRN (Reason: rash) Qty: 45 0RF Rx Instructions: apply to affected area ketoconazole 2 % shampoo 1 applic topical .Twice a week PRN (Reason: seborrheic derm) Qty: 120 0RF Rx Instructions: Apply to wet scalp twice a week, leave on for 3-5 minutes, then rinse well. use for 2-4 weeks fluticasone propion-salmeterol [Advair HFA] 115-21 mcg/actuation HFA aerosol inhaler 2 puff inhalation BID Qty: 12 8RF Colace Clear 50 mg capsule 100 mg PO TID PRN (Reason: constipation) Qty: 540 4RF ketoconazole 2 % cream 1 applic topical DAILY Qty: 120 6RF Rx Instructions: Apply to toenails once daily ipratropium-albuterol 0.5 mg-3 mg(2.5 mg base)/3 mL solution for nebulization 3 ml inhalation Q4H PRN (Reason: wheezing) Qty: 540 8RF atorvastatin 20 mg tablet 20 mg PO QHS Qty: 90 4RF pantoprazole 40 mg tablet,delayed release (DR/EC) 40 mg PO DAILY@0730 Qty: 90 3RF sertraline 100 mg tablet 100 mg PO DAILY Qty: 90 3RF furosemide 20 mg tablet 40 mg PO DAILY Qty: 180 1RF Patient Comments: Ran out. Trying to get new prescription. Inhaler, Assist Devices [Pocket Chamber] 1 ea miscellaneous DIRECTED Qty: 0 0RF HPI General Date/Time Provider Initiated Documentation: 06/01/24 17:51 . HPI Narrative: Is a 83-year-old female presents with 7 days of upper respiratory symptoms, increased sputum production with worsening shortness of breath over the past 24 hours. EMS reports they arrived and patient was at 75% room air. She was given several DuoNebs and placed on 5 L of oxygen. She does have a history of COPD. She states she stopped smoking a year ago. She does use nebulizers at home to control her symptoms. She denies any fevers or chest pain. She does states she was treated for pneumonia in mid March in the outpatient setting with Augmentin. She denies any calf pain or swelling, recent flights, surgeries, long drives. Related Data Home Medications ?Medication ?Instructions ?Recorded ?Confirmed qktodvsy-xdvl-arms 8 mg-folic 400 1 tab PO DAILY 07/18/20 06/01/24 mcg-K 50 mcg-lutein 300 mcg tablet (Centrum Silver Women) Inhaler, Assist Devices [Pocket 1 ea miscellaneous DIRECTED ##0 10/13/2205/05 Chamber] ipratropium 0.5 mg-albuterol 3 mg 3 ml inhalation Q4H PRN wheezing 01/07/23 06/01/24 (2.5 mg base)/3 mL nebulization #540 mL soln ferrous sulfate 325 mg (65 mg 325 mg PO DAILY 04/04/23 06/01/24 iron) tablet ketoconazole 2 % shampoo 1 applic topical .Twice a week PRN 04/04/23 06/01/24 seborrheic derm #120 mL mometasone 0.1 % topical cream 1 applic topical BID PRN rash #45 04/04/23 06/01/24 grams atorvastatin 20 mg tablet 20 mg PO QHS #90 tabs 05/17/23 06/01/24 docusate sodium 50 mg capsule 100 mg (2 x 50 mg) PO TID PRN 05/17/23 06/01/24 (Colace Clear) constipation #540 caps fluticasone propionate 115 2 puff inhalation BID #12 grams 07/15/23 06/01/24 mcg-salmeterol 21 mcg/actuation HFA inhaler (Advair HFA) ketoconazole 2 % topical cream 1 applic topical DAILY #120 grams 10/20/23 06/01/24 pantoprazole 40 mg tablet,delayed 40 mg PO DAILY@0730 #90 tabs 12/29/23 06/01/24 release sertraline 100 mg tablet 100 mg PO DAILY #90 tabs 01/17/24 06/01/24 furosemide 20 mg tablet 40 mg (2 x 20 mg) PO DAILY weight 06/01/24 06/01/24 gain #180 tabs Previous Rx's ?Medication ?Instructions ?Recorded Inhaler, Assist Devices [Pocket 1 ea miscellaneous DIRECTED ##0 10/13/22 Chamber] ipratropium 0.5 mg-albuterol 3 mg 3 ml inhalation Q4H PRN wheezing 01/07/23 (2.5 mg base)/3 mL nebulization #540 mL soln ketoconazole 2 % shampoo 1 applic topical .Twice a week PRN 04/04/23 seborrheic derm #120 mL mometasone 0.1 % topical cream 1 applic topical BID PRN rash #45 04/04/23 grams atorvastatin 20 mg tablet 20 mg PO QHS #90 tabs 05/17/23 docusate sodium 50 mg capsule 100 mg (2 x 50 mg) PO TID PRN 05/17/23 (Colace Clear) constipation #540 caps fluticasone propionate 115 2 puff inhalation BID #12 grams 07/15/23 mcg-salmeterol 21 mcg/actuation HFA inhaler (Advair HFA) ketoconazole 2 % topical cream 1 applic topical DAILY #120 grams 10/20/23 pantoprazole 40 mg tablet,delayed 40 mg PO DAILY@0730 #90 tabs 12/29/23 release sertraline 100 mg tablet 100 mg PO DAILY #90 tabs 01/17/24 furosemide 20 mg tablet 40 mg (2 x 20 mg) PO DAILY weight 06/01/24 gain #180 tabs Allergies Allergy/AdvReac Type Severity Reaction Status Date / Time baclofen AdvReac Intermediate mental Verified 06/01/24 18:46 status changes General Stated Complaint: SOB IFTIKHAR: 3 Exam Narrative Exam Narrative: Alert and oriented 83-year-old female in acute respiratory distress, tachypnea, wheezes and diminished lung sounds throughout, sinus tachycardia without murmurs or rubs no abdominal tenderness, no peripheral edema Course Vital Signs Vital signs: Vital Signs Pulse 106 H 06/01/24 17:51 Respiratory Rate 24 06/01/24 17:51 Blood Pressure 145/119 H 06/01/24 17:51 Pulse Oximetry 95 06/01/24 17:51 Temperature 36.2 C L 06/01/24 19:02 Temperature Source Temporal Artery Scan 06/01/24 19:02 Pulse 106 H 06/01/24 19:30 Pulse 106 H 06/01/24 19:30 Respiratory Rate 21 06/01/24 19:30 Respiratory Effort Non-Labored, Short of Breath, Incrsd Work of Breathing 06/01/24 19:02 Respiratory Depth Shallow 06/01/24 19:02 Respiratory Pattern Tachypnea 06/01/24 19:02 Blood Pressure 113/77 06/01/24 19:02 Blood Pressure Mean 89 06/01/24 19:02 Blood Pressure Position Sitting 06/01/24 19:02 Pulse Oximetry 93 06/01/24 19:02 Oxygen Delivery Method Room Air 06/01/24 19:02 Oxygen Flow Rate 0 06/01/24 19:02 Lab/Test Results Lab/Test Results: 06/01/24 19:00 Sputum Sputum Culture - Pending 06/01/24 19:00 Sputum Gram Stain - Pending Laboratory Tests Range/Units 06/01/24 06/01/24 06/01/24 17:55 18:12 19:31 WBC (4.4-10.8) 10^3/uL 13.84 H RBC (3.93-5.22) 10^6/uL 4.60 Hgb (11.2-15.7) g/dL 13.8 Hct (36.0-46.0) % 44.5 MCV (80-95) fL 97 H MCH (27.0-33.0) pg 30.0 MCHC (32.0-36.0) % 31.0 L RDW (11.7-14.6) % 13.3 Plt Count (130-400) 10^3/uL 171 MPV (8.0-11.0) fL 9.9 Immature Gran % % 0.4 Neutrophils % % 77.5 Lymphocytes % % 13.0 Monocytes % % 8.2 Eosinophils % % 0.7 Basophils % % 0.2 Nucleated RBC % (0.0-0.3) % 0.0 Absolute Neutrophils (1.2-6.7) 10^3/uL 10.73 H Absolute Lymphocytes (1.2-3.4) 10^3/uL 1.80 Absolute Monocytes (0.1-0.8) 10^3/uL 1.13 H Absolute Eosinophils (0.0-0.7) 10^3/uL 0.10 Absolute Basophils (0.0-0.2) 10^3/uL 0.03 VBG pH (7.31-7.41) 7.39 VBG pCO2 (41-51) mmHg 48 VBG pO2 mmHg 42 VBG HCO3 (23-28) mmol/L 29 H VBG Total CO2 (24-29) mmol/L 26 VBG O2 Saturation % 77 VBG Base Excess (-2-3) mmol/L 4 H VBG Lactate (0.6-1.4) mmol/L 1.5 H Sodium (136-145) mmol/L 146 H Potassium (3.5-5.1) mmol/L 3.3 L Chloride (98-107) mmol/L 106 Carbon Dioxide (21.0-32.0) mmol/L 30.5 Anion Gap (3-11) mmol/L 9.5 BUN (7-18) mg/dL 34 H Creatinine (0.55-1.02) mg/dL 1.4 H Est GFR (CKD-EPI 2020) (mL/min/1.73m2) 37.80 Glucose (74-106) mg/dL 112 H Calcium (8.5-10.1) mg/dL 9.4 Magnesium (1.8-2.4) mg/dL 2.1 Total Bilirubin (0.2-1.0) mg/dL 0.48 AST (15-37) U/L 22 ALT (14-59) U/L 26 Alkaline Phosphatase (46-116) U/L 88 Troponin I (<or=51) ng/L 41 38 NT-Pro-B Natriuret Pep (<300) pg/mL 2365 H Total Protein (6.4-8.2) g/dL 8.2 Albumin (3.4-5.0) g/dL 4.5 Procalcitonin ng/mL < 0.10 COVID-19 Source NASOPHARYNX SARS-CoV-2 (PCR) (Negative) Negative Influenza Type A (PCR) (Negative) Negative Influenza Type B (PCR) (Negative) Negative RSV (PCR) (Negative) Negative Medical Decision Making 83-year-old female presenting in acute respiratory distress, received 3 DuoNebs 1 via EMS to in the emergency department with symptomatic improvement. Patient still maintains tachypnea and respiratory distress which is mild. Her VBG is reassuring and her oxygenation is approximately 94% on room air, however even just sitting up in bed patient desats to 78% and is quite dyspneic. Chest x-ray per radiology interpretation my review does not show evidence of pneumonia, however she does have leukocytosis, baseline renal insufficiency. Will treat patient with doxycycline for atypical pneumonia versus COPD exacerbation. Patient received 80 mg of Solu-Medrol in the emergency department. Patient required oxygen for approximately an hour and a half during her stay, 4 L. Troponin is negative x 2, EKG with PACs with sinus arrhythmia. Low suspicion clinically for CHF although BNP is elevated suspect this is more respiratory source. Patient is agreeable to stay in the hospital at this time and be treated for COPD exacerbation with respiratory failure. Case discussed with admitting hospitalist. Advanced directives indicate DNR/DNI. Quality:SDOH Health Related Social Needs: No Data to Display Critical Care Time Critical Care Time Attestation: 35 minutes of critical care time secondary to acute respiratory failure requiring VBG, diagnostic labs, oxygen supplementation, DuoNeb administration, IV steroid administration, and ultimately admission to the hospital on telemetry monitoring for COPD exacerbation and acute respiratory failure. PFSH All Active Problems (Updated 06/01/24 @ 20:26 by Ben Hinton) Acute exacerbation of chronic obstructive pulmonary disease (Acute) Hypernatremia (Acute) Hypoxia (Acute) Hypokalemia (Acute) Bilateral sensorineural hearing loss (Acute) Chest congestion (Acute) Fatigue (Acute) Venous insufficiency (Acute) Atherosclerosis of artery of both lower extremities (Acute) Onychomycosis (Acute) Pain in joint, foot, left (Acute) Pain in right foot (Acute) Knee pain, right (Acute) Trochanteric bursitis of left hip (Acute) Toe pain, left (Acute) Toe pain, right (Acute) Essential hypertension (Chronic 03/30/13) Hyperlipidemia (Acute) Former cigarette smoker (Acute) Pleural effusion (Acute) Anemia (Chronic) Pulmonary nodules/lesions, multiple (Acute) Pulmonary hypertension (Acute) Left hemiparesis (Acute) 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 Due repeat MRI in 10/2022. Counseling regarding advanced directives and goals of care (Acute) CVA (cerebral vascular accident) (Chronic) Neuro est. between 04/2020-11/2021 Grief reaction (Chronic) Spouse 08/13/21 passed Carotid stenosis, left (Acute) 50-69% stenosis 04/2022; complete obstruction right internal carotid. 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 Son No problems noted. Son No problems noted. Daughter No problems noted. Daughter No problems noted. Social History Smoking/Tobacco Use Status: Former Tobacco Use tobacco type: cigarettes Quit Date: 08/04/22 Tobacco: How many years used: 63 Quit status: considering quitting Second Hand Exposure: Yes Smoking risk assessment performed?: Yes Alcohol Intake: never Drug use: Rarely Counseling given: No Counseling provided: none Caregiver/Support person: No Household members: none Housing: house Number of Children: 4 Communication Needs: Hard of Hearing Do you need help understanding health information?: Rarely Pets and animals: Yes Pets and animals: dog(s) Sexually active: No Do you think of yourself as: straight/heterosexual Current gender identity: female What is your relationship status?: How often do you talk on the phone with friends or family?: three or more times per week How often do you get together with friends or relatives?: decline to answer How often do you attend episcopal or christian services?: 4 or more times per year Do you belong to any clubs or organized social groups?: no Panel score (0-1 are the most socially isolated patients): 2 What type of physical activity do you participate in: none Duration: 15-30 minutes/day Frequency: 3-4 times per week Darlene/Hoahaoism: No preference Special darlene needs: No Seatbelt use: always Helmet use: No Drive intox or ride w/intox test driver: No Do you feel safe at home: Yes Do you feel safe in your relationship?: Yes Additional Social history: Pt smoked for 60yrs quit aug 2022.
--- NOTE | 2024-06-01 20:20 | W.PM.HP.N ---
Date of service: 06/01/24 Time of Service: 20:20 Assessment and Plan Assessment and plan (1) Acute exacerbation of chronic obstructive pulmonary disease: Start date: 06/01/24 Status: Acute Assessment and plan: This is an 83-year-old lady with at least COPD exacerbation and bronchitis with chest x-ray revealing no acute infiltrates. Her oxygen needs have increased at home and she is improved now with IV Solu-Medrol and aggressive nebulizer treatments. She has no audible wheezes on exam after being hospitalized for several hours. She will continue on aggressive nebulizers IV antibiotics with ceftriaxone and doxycycline and Solu-Medrol switching to prednisone as tolerated. Because of her recent cardiac event, and question of CHF with being given mild IV hydration with patient having hyponatremia, echocardiogram should be updated. She did have increased PA pressures and preserved left ventricular ejection fraction more than a year ago in 2022. Plans are for the patient to return home. She is a DNR/DNI. (2) Hypoxia: Start date: 06/01/24 Status: Acute Assessment and plan: Now not requiring oxygen supplementation at rest with pulse ox of 90% on room air. Oxygen supplement as needed with increased ambulation. Continue aggressive treatment of COPD exacerbation. Convert to oral therapy as tolerated. (3) Hypernatremia: Start date: 06/01/24 Status: Acute Assessment and plan: Recheck labs with gentle IV hydration. Patient will receive 1 L of IV fluids with potassium supplement. Encourage oral intake and hold Lasix for now. She may be reinitiated on the lower dose of Lasix at discharge after echocardiogram and possible. (4) Hypokalemia: Start date: 06/01/24 Status: Acute Assessment and plan: Currently on furosemide 40 mg daily and no potassium supplement. 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 This appears stable. (5) Congestive heart failure: Assessment and plan: Hold Lasix for now and at discharge possibly decreased to 20 mg daily. Patient chronically does not have peripheral edema. She was slightly dry with hypernatremia and hypokalemia upon admission. She lives alone. Follow-up echocardiogram. Troponins were negative. Qualifiers: Heart failure chronicity: chronic Heart failure type: right-sided Qualified Code(s): I50.812 - Chronic right heart failure (6) CKD (chronic kidney disease): Status: Chronic Assessment and plan: Monitor labs daily. Qualifiers: Chronic kidney disease stage: stage 3 (moderate) Chronic kidney disease stage 3 subtype: stage 3b (GFR 30-44) Qualified Code(s): N18.32 - Chronic kidney disease, stage 3b History of Present Illness History of Present Illness Chief Complaint: Dyspnea upon exertion with hypoxemia Narrative: This is an 83-year-old female patient who lives at home alone and usually is not on oxygen therapy began having increased shortness of breath with productive sputum for 7 days and pulse-oximeter at home in the 70% range when checked by EMS. She was given a DuoNeb and placed on 5 L/min per nasal cannula with the patient really not on oxygen at home. She has a sudden increase in her dyspnea the day of presentation. She had no fever or chest pain with a recent history of cardiac event. She also has had strokes in the past. 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 She reported to the ED and had no obvious infiltrate on chest x-ray but did have new onset hypoxemia but improved on room air to about 93% at rest and dropping into the 80% range with exertion. She continues to work hard with breathing with any exertion and does have a slightly elevated WBC. Blood cultures were performed and urine with urine culture will be performed the patient to be initiated on IV antibiotic therapy for at least bronchitis with possible early pneumonia though the chest x-ray was interpreted as no acute findings or focal infiltrates with COPD. She does have some chest discomfort with dyspnea but no increase in troponins though she did have a non-STEMI with troponins over 1000 earlier this fall. At that time she was transferred to [facility] for non-STEMI and did not have a cardiac catheterization. Her last echocardiogram and spring 2022 did reveal preserved left-ventricular ejection fraction though she does have a history of CHF which is mostly right-sided with elevated PA pressures. Her BNP is elevated from baseline. Echocardiogram to be updated since her recent event. She is on chronic diuretics with Lasix 40 mg daily taken the day of admission and she appears slightly dry with increased BUN and sodium. She does have CKD which appears stable she is not on potassium supplement chronically but does have slightly low potassium. She will be repleted with gentle IV hydration overnight and repeat echocardiogram when available. Over the weekend this most likely will not happen. She is a DNR/DNI. Review of Systems Narrative: 13 point review of systems otherwise unrevealing or stable. Patient has had no peripheral edema. PFSH All Active Problems (Updated 06/02/24 @ 07:01 by Ben Hinton) CKD (chronic kidney disease) (Chronic) Acute exacerbation of chronic obstructive pulmonary disease (Acute) Hypernatremia (Acute) Hypoxia (Acute) Hypokalemia (Acute) Bilateral sensorineural hearing loss (Acute) Chest congestion (Acute) Fatigue (Acute) Venous insufficiency (Acute) Atherosclerosis of artery of both lower extremities (Acute) Onychomycosis (Acute) Pain in joint, foot, left (Acute) Pain in right foot (Acute) Knee pain, right (Acute) Trochanteric bursitis of left hip (Acute) Toe pain, left (Acute) Toe pain, right (Acute) Essential hypertension (Chronic 03/30/13) Hyperlipidemia (Acute) Former cigarette smoker (Acute) Pleural effusion (Acute) Anemia (Chronic) Pulmonary nodules/lesions, multiple (Acute) Pulmonary hypertension (Acute) Left hemiparesis (Acute) 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 Due repeat MRI in 10/2022. Counseling regarding advanced directives and goals of care (Acute) CVA (cerebral vascular accident) (Chronic) Neuro est. between 04/2020-11/2021 Grief reaction (Chronic) Spouse 08/13/21 passed Carotid stenosis, left (Acute) 50-69% stenosis 04/2022; complete obstruction right internal carotid. Shoulder arthralgia (Chronic) Polyp of colon (Acute) tubular adenoma Peripheral vascular disease (Acute) Jul [place] [facility] [place]IAC ST[place] [facility] [place] Lumbago (Chronic 05/10/13) Constipation (Chronic 11/14/17) Medical History Pneumonia Left hip pain POCUS 09/26/23 Congestive heart failure Productive cough Left upper quadrant abdominal pain Chronic obstructive lung disease PFT'S 2009 FEV 1.15=59% continues to smoke Pleural effusion Ischemic cerebrovascular accident (CVA) due to atherosclerosis of large extracranial artery Perichondritis Disorder of ear, left Hand pain, left Anxiety about health Seizures Smoker (10/19/16) Diverticulitis of colon H/O SIGMOID COLECTOMY Surgical History S/P partial colectomy WRIST/THUMB SURGERY LEFT THUMB LEFT WRIST RIGHT THUMB Ligation of fallopian tube Trigger Finger release Rotator Cuff Repair RIGHT Extraction of cataract B/L 04/2013 Family History Mother Diabetes Essential hypertension Stroke Father , 55 Heart disease Stroke Brother , 71 Complications from surgery No problems noted. Son No problems noted. Son No problems noted. Daughter No problems noted. Daughter No problems noted. Social History Smoking/Tobacco Use Status: Former Tobacco Use tobacco type: cigarettes Quit Date: 08/04/22 Tobacco: How many years used: 63 Quit status: considering quitting Second Hand Exposure: Yes Smoking risk assessment performed?: Yes Alcohol Intake: never Drug use: Rarely Counseling given: No Counseling provided: none Caregiver/Support person: No Household members: none Housing: house Number of Children: 4 Communication Needs: Hard of Hearing Do you need help understanding health information?: Rarely Pets and animals: Yes Pets and animals: dog(s) Sexually active: No Do you think of yourself as: straight/heterosexual Current gender identity: female What is your relationship status?: How often do you talk on the phone with friends or family?: three or more times per week How often do you get together with friends or relatives?: decline to answer How often do you attend mandaen or episcopal services?: 4 or more times per year Do you belong to any clubs or organized social groups?: no Panel score (0-1 are the most socially isolated patients): 2 What type of physical activity do you participate in: none Duration: 15-30 minutes/day Frequency: 3-4 times per week Darlene/Presybeterian: No preference Special darlene needs: No Seatbelt use: always Helmet use: No Drive intox or ride w/intox driver operator: No Do you feel safe at home: Yes Do you feel safe in your relationship?: Yes Additional Social history: Pt smoked for 60yrs quit aug 2022. Meds Allergies and Home Medications Allergies Allergy/AdvReac Type Severity Reaction Status Date / Time baclofen AdvReac Intermediate mental Verified 06/01/24 18:46 status changes Home Medications ?Medication ?Instructions ?Recorded ?Confirmed ?Type wikowfeq-kxix-akbi 8 mg-folic 400 1 tab PO DAILY 07/18/20 06/01/24 History mcg-K 50 mcg-lutein 300 mcg tablet (Centrum Silver Women) Inhaler, Assist Devices [Pocket 1 ea miscellaneous DIRECTED ##0 10/13/22 06/01/24 Rx Chamber] ipratropium 0.5 mg-albuterol 3 mg 3 ml inhalation Q4H PRN wheezing 01/07/23 06/01/24 Rx (2.5 mg base)/3 mL nebulization #540 mL soln ferrous sulfate 325 mg (65 mg 325 mg PO DAILY 04/04/23 06/01/24 History iron) tablet ketoconazole 2 % shampoo 1 applic topical .Twice a week PRN 04/04/23 06/01/24 Rx seborrheic derm #120 mL mometasone 0.1 % topical cream 1 applic topical BID PRN rash #45 04/04/23 06/01/24 Rx grams atorvastatin 20 mg tablet 20 mg PO QHS #90 tabs 05/17/23 06/01/24 Rx docusate sodium 50 mg capsule 100 mg (2 x 50 mg) PO TID PRN 05/17/23 06/01/24 Rx (Colace Clear) constipation #540 caps fluticasone propionate 115 2 puff inhalation BID #12 grams 07/15/23 06/01/24 Rx mcg-salmeterol 21 mcg/actuation HFA inhaler (Advair HFA) ketoconazole 2 % topical cream 1 applic topical DAILY #120 grams 10/20/23 06/01/24 Rx pantoprazole 40 mg tablet,delayed 40 mg PO DAILY@0730 #90 tabs 12/29/23 06/01/24 Rx release sertraline 100 mg tablet 100 mg PO DAILY #90 tabs 01/17/24 06/01/24 Rx furosemide 20 mg tablet 40 mg (2 x 20 mg) PO DAILY weight 06/01/24 06/01/24 Rx gain #180 tabs Exam Narrative Exam Narrative: General: Patient appears appropriate for age, mildly obese, alert and oriented x 3 and in no acute distress. HEENT: Normocephalic, eyes with pupils equal and reactive to light symmetrically, extraocular movement intact and sclera anicteric. Oropharynx with moist mucosa. Neck: Supple without JVD. Back: Kyphotic without CVA tenderness. Lungs: Fair aeration with no focalizing rales or rhonchi but bronchovesicular breath sounds diffusely with no expiratory wheeze. She is breathing comfortably at rest. She is not on oxygen. Breast: Exam deferred. Heart: Irregular irregular rhythm with frequent ectopy, normal rate. No appreciable murmur or gallop. Abdomen: Obese contour, soft to palpation with no palpable hepatosplenomegaly. No focal tenderness, guarding or rebound. Bowel sounds positive all quadrants. Genitalia/rectal: Exam deferred. Extremities: Left shoulder is abducted and fixed with tenderness to attempt of movement, left elbow is flexed and fixed with and having flexion contractures and patient having minimal movement. Left lower extremity slightly weak. No peripheral edema. No clubbing or cyanosis. Fair capillary refill. Skin: Normal color, warm and dry. Neuro: Left upper extremity findings and left lower extremity findings as above, cranial nerves II to XII grossly intact, no other focalizing motor deficits. No tremor. Psych: Flattened affect with depressed mood, no abnormal thought processes. Remote and recent memory grossly intact. Results Imaging Imaging Studies: EXAM: XR CHEST 2V PA LATERAL CLINICAL HISTORY: shortness of breath TECHNIQUE: 2D digital imaging was performed of the chest. Two images were obtained. PA and lateral views were obtained. COMPARISON: CR XR CHEST 2V PA LATERAL from 03/19/2024 FINDINGS: MEDIASTINUM: Normal. HEART: Normal. PULMONARY VASCULATURE: Normal. LUNGS: The lungs are hyperinflated with flattened diaphragms suggesting underlying COPD. No focal infiltrates are seen. PLEURAL SPACE: No pleural effusion or pneumothorax. BONE:Within normal limits for the patient's age. OTHER FINDINGS:Normal. IMPRESSION: No acute pulmonary findings. Labs 06/01/24 17:55 06/01/24 17:55 Labs: Laboratory Results - last 24 hr 06/01/24 06/01/24 06/01/24 17:55 18:12 19:31 WBC 13.84 H RBC 4.60 Hgb 13.8 Hct 44.5 MCV 97 H MCH 30.0 MCHC 31.0 L RDW 13.3 Plt Count 171 MPV 9.9 Immature Gran % 0.4 Neutrophils % 77.5 Lymphocytes % 13.0 Monocytes % 8.2 Eosinophils % 0.7 Basophils % 0.2 Nucleated RBC % 0.0 Absolute Neutrophils 10.73 H Absolute Lymphocytes 1.80 Absolute Monocytes 1.13 H Absolute Eosinophils 0.10 Absolute Basophils 0.03 VBG pH 7.39 VBG pCO2 48 VBG pO2 42 VBG HCO3 29 H VBG Total CO2 26 VBG O2 Saturation 77 VBG Base Excess 4 H VBG Lactate 1.5 H Sodium 146 H Potassium 3.3 L Chloride 106 Carbon Dioxide 30.5 Anion Gap 9.5 BUN 34 H Creatinine 1.4 H Est GFR (CKD-EPI 2020) 37.80 Glucose 112 H Calcium 9.4 Magnesium 2.1 Total Bilirubin 0.48 AST 22 ALT 26 Alkaline Phosphatase 88 Troponin I 41 38 NT-Pro-B Natriuret Pep 2365 H Total Protein 8.2 Albumin 4.5 Procalcitonin < 0.10 COVID-19 Source NASOPHARYNX SARS-CoV-2 (PCR) Negative Influenza Type A (PCR) Negative Influenza Type B (PCR) Negative RSV (PCR) Negative Last Vital Signs Temp 36.2 C L 06/01/24 19:02 Pulse 106 H 06/01/24 19:30 Resp 21 06/01/24 19:30 BP 113/77 06/01/24 19:02 Pulse Ox 93 06/01/24 19:02 Time Spent Time spent with Patient: >75 minutes Time was spent: preparing to see the patient(eg.review tests), obtaining and/or reviewing separately otained hiistory, ordering medications,tests, procedures, indepentently interpreting results and care coordination
--- NOTE | 2024-06-01 20:31 | DI.VRAD_ITS ---
PROCEDURE INFORMATION: Exam: XR Chest Exam date and time: 06/01/2024 7:16 PM Age: 83 years old Clinical indication: Shortness of breath TECHNIQUE: Imaging protocol: Radiologic exam of the chest. Views: 2 views. COMPARISON: CR XR CHEST 2V PA LATERAL 03/19/2024 1:28 PM FINDINGS: Lungs: No focal consolidations or pulmonary edema. Pleural spaces: Unremarkable. No pleural effusion. No pneumothorax. Heart/Mediastinum: Normal. Vasculature: Atherosclerotic vascular disease. Bones/joints: Multilevel thoracic spine degenerative disc space narrowing and osteophyte formation. IMPRESSION: No acute cardiopulmonary abnormality. Dictated and Authenticated by: Moses Aranda MD. Ordering:AIDE Edward MD
[2024-06-01] MEDS: cefTRIAXone 1 GM/50 ML BAG IVPB (20:40)
[2024-06-01] MEDS: methylPREDNISolone SUCC 125 MG VIAL 60 MG IVP (21:01)
[2024-06-01] MEDS: DOXYCYCLINE 100 MG in Normal Saline 100 ML IVPB (21:01)
[2024-06-01 21:34] LABS: Troponin I 30 ng/L (<or=51)
[2024-06-01] MEDS: Albuterol/Ipratropium 3 ML UPD VIAL UPD (23:49)
--- NOTE | 2024-06-01 23:59 | W.PC.ACHO ---
Registration Status: Primary Language: Preferred Language: ED Information & Data Chief Complaint SOB 06/01/24 20:20 Triage Note feeling crummy the last 06/01/24 17:51 few days, worse today. Mid 80's on RA for EMS and audible wheezes. Duonebs given en route, arrives w/NC in place Medical / Surgical History (Last Reviewed 06/01/24 @ 20:23 by Ben Hinton) Pneumonia Left hip pain Congestive heart failure Productive cough Left upper quadrant abdominal pain Chronic obstructive lung disease Pleural effusion Ischemic cerebrovascular accident (CVA) due to atherosclerosis of large extracranial artery Perichondritis Disorder of ear, left Hand pain, left Anxiety about health Seizures Smoker (10/19/16) Diverticulitis of colon (Last Reviewed 06/01/24 @ 20:23 by Ben Hinton) S/P partial colectomy WRIST/THUMB SURGERY Ligation of fallopian tube Trigger Finger release Rotator Cuff Repair Extraction of cataract Most Recent Vital Signs Temperature 36.9 C 06/01/24 22:45 Temperature Source Temporal Artery Scan 06/01/24 19:02 Pulse 95 H 06/01/24 22:45 Pulse Rhythm Regular 06/01/24 22:31 Pulse 106 H 06/01/24 19:30 Respiratory Rate 20 06/01/24 22:45 Respiratory Effort Short of Breath, Labored 06/01/24 22:31 Respiratory Depth Shallow 06/01/24 22:31 Respiratory Pattern Normal 06/01/24 22:31 Blood Pressure 143/85 H 06/01/24 22:45 Blood Pressure Mean 89 06/01/24 19:02 Blood Pressure Position Sitting 06/01/24 19:02 Pulse Oximetry 93 06/01/24 22:45 Oxygen Delivery Method Room Air 06/01/24 22:45 Oxygen Flow Rate 0 06/01/24 22:45 Pain Level 3 06/01/24 22:45 Comment pt states she has CRVO, and 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 06/01/24 22:31 Allergies baclofen Adverse Reaction (Intermediate, Verified 06/01/24 18:46) mental status changes Precautions Isolation PUI 06/01/24 18:29 IV IV Catheter Type [] Saline Lock IV Catheter Type [Right Saline Lock Antecubital] IV Catheter Gauge [Right 18 Antecubital] Diet Orders Category Date Time Status Heart Healthy Eating [DIET] Nutrition 06/02/24 Breakfast Ordered Diagnostics 06/01/24 06/01/24 06/01/24 Range/Units 21:10 19:31 18:12 WBC (4.4-10.8) 10^3/uL RBC (3.93-5.22) 10^6/uL Hgb (11.2-15.7) g/dL Hct (36.0-46.0) % MCV (80-95) fL MCH (27.0-33.0) pg MCHC (32.0-36.0) % RDW (11.7-14.6) % Plt Count (130-400) 10^3/uL MPV (8.0-11.0) fL Immature Gran % % Neutrophils % % Lymphocytes % % Monocytes % % Eosinophils % % Basophils % % Nucleated RBC % (0.0-0.3) % Absolute Neutrophils (1.2-6.7) 10^3/uL Absolute Lymphocytes (1.2-3.4) 10^3/uL Absolute Monocytes (0.1-0.8) 10^3/uL Absolute Eosinophils (0.0-0.7) 10^3/uL Absolute Basophils (0.0-0.2) 10^3/uL VBG pH 7.39 (7.31-7.41) VBG pCO2 48 (41-51) mmHg VBG pO2 42 mmHg VBG HCO3 29 H (23-28) mmol/L VBG Total CO2 26 (24-29) mmol/L VBG O2 Saturation 77 % VBG Base Excess 4 H (-2-3) mmol/L VBG Lactate 1.5 H (0.6-1.4) mmol/L Sodium (136-145) mmol/L Potassium (3.5-5.1) mmol/L Chloride (98-107) mmol/L Carbon Dioxide (21.0-32.0) mmol/L Anion Gap (3-11) mmol/L BUN (7-18) mg/dL Creatinine (0.55-1.02) mg/dL Est GFR (CKD-EPI 2020) (mL/min/1.73m2) Glucose (74-106) mg/dL Calcium (8.5-10.1) mg/dL Magnesium (1.8-2.4) mg/dL Total Bilirubin (0.2-1.0) mg/dL AST (15-37) U/L ALT (14-59) U/L Alkaline Phosphatase (46-116) U/L Troponin I 30 38 (<or=51) ng/L NT-Pro-B Natriuret Pep (<300) pg/mL Total Protein (6.4-8.2) g/dL Albumin (3.4-5.0) g/dL Procalcitonin ng/mL COVID-19 Source NASOPHARYNX SARS-CoV-2 (PCR) Negative (Negative) Influenza Type A (PCR) Negative (Negative) Influenza Type B (PCR) Negative (Negative) RSV (PCR) Negative (Negative) 06/01/24 Range/Units 17:55 WBC 13.84 H (4.4-10.8) 10^3/uL RBC 4.60 (3.93-5.22) 10^6/uL Hgb 13.8 (11.2-15.7) g/dL Hct 44.5 (36.0-46.0) % MCV 97 H (80-95) fL MCH 30.0 (27.0-33.0) pg MCHC 31.0 L (32.0-36.0) % RDW 13.3 (11.7-14.6) % Plt Count 171 (130-400) 10^3/uL MPV 9.9 (8.0-11.0) fL Immature Gran % 0.4 % Neutrophils % 77.5 % Lymphocytes % 13.0 % Monocytes % 8.2 % Eosinophils % 0.7 % Basophils % 0.2 % Nucleated RBC % 0.0 (0.0-0.3) % Absolute Neutrophils 10.73 H (1.2-6.7) 10^3/uL Absolute Lymphocytes 1.80 (1.2-3.4) 10^3/uL Absolute Monocytes 1.13 H (0.1-0.8) 10^3/uL Absolute Eosinophils 0.10 (0.0-0.7) 10^3/uL Absolute Basophils 0.03 (0.0-0.2) 10^3/uL VBG pH (7.31-7.41) VBG pCO2 (41-51) mmHg VBG pO2 mmHg VBG HCO3 (23-28) mmol/L VBG Total CO2 (24-29) mmol/L VBG O2 Saturation % VBG Base Excess (-2-3) mmol/L VBG Lactate (0.6-1.4) mmol/L Sodium 146 H (136-145) mmol/L Potassium 3.3 L (3.5-5.1) mmol/L Chloride 106 (98-107) mmol/L Carbon Dioxide 30.5 (21.0-32.0) mmol/L Anion Gap 9.5 (3-11) mmol/L BUN 34 H (7-18) mg/dL Creatinine 1.4 H (0.55-1.02) mg/dL Est GFR (CKD-EPI 2020) 37.80 (mL/min/1.73m2) Glucose 112 H (74-106) mg/dL Calcium 9.4 (8.5-10.1) mg/dL Magnesium 2.1 (1.8-2.4) mg/dL Total Bilirubin 0.48 (0.2-1.0) mg/dL AST 22 (15-37) U/L ALT 26 (14-59) U/L Alkaline Phosphatase 88 (46-116) U/L Troponin I 41 (<or=51) ng/L NT-Pro-B Natriuret Pep 2365 H (<300) pg/mL Total Protein 8.2 (6.4-8.2) g/dL Albumin 4.5 (3.4-5.0) g/dL Procalcitonin < 0.10 ng/mL COVID-19 Source SARS-CoV-2 (PCR) (Negative) Influenza Type A (PCR) (Negative) Influenza Type B (PCR) (Negative) RSV (PCR) (Negative) 06/01/24 20:42 Blood Culture - Pending Blood 06/01/24 20:35 Blood Culture - Pending Blood 06/01/24 19:00 Sputum Culture - Pending Sputum Gram Stain - Final Intake and Output - 24 Hour Total 06/01/24 17:35 thru 06/01/24 23:32 Intake Total 170 Balance 170 Weight 58.2 kg Intake: IV 170 Falls Risk Assessment History of Falls Previous History 06/01/24 22:31 Contributing Factors Impairments 06/01/24 22:31 Ambulatory Aids Uses ambulatory device + 06/01/24 22:31 Tubes/Lines With any additional score 06/01/24 22:31 Gait Evaluation W/no contributing factors 06/01/24 22:31 Cognition No cognitive impairment 06/01/24 22:31 Fall Total Score 78 06/01/24 22:31 Level of Risk Maximum Risk 06/01/24 22:31 Problems (Last Reviewed 06/01/24 @ 20:23 by Ben Hinton) Acute exacerbation of chronic obstructive pulmonary disease (Acute) Hypernatremia (Acute) Hypoxia (Acute) Hypokalemia (Acute) v v v v v v v v v Sending and/or Receiving Nurses: Please use comment section below to note any information pertinent to the patient hand-off not included above. Information / Comments: DNR/I 83 yr Female Hx of COPD, CHF, CVA left sided weakness, smoker quit a few years ago SOB increasing over the last few days, mostly with exertion Satting mid 80s on arrival with wheezing Tachy in the 120s sinus rhythm with frequent pacs, RR 30s got 1 duoneb in ems and another in the ED, solumedrol x2 repeat ekg in ED satting 94% on ra after treatments, is not getting supplemental O2 while in bed, will desat back to 80s when ambulating chest xray negative, elevated wbc and neutrophils, trops negative, covid negative doxycycline and cefriaxone in ed skin is good right now is afibrile, 93% on ra, HR 106, RR 21 labored and wheezes a&o, live at home alone, gets around with walker, got 200ml in oral fluids pure wick in place, med rec done with family RFA, RAC both 18g Report received from: Dheeraj @ [id number]
[2024-06-02] VITALS (15 sets, daily range): BP systolic 99–122; BP diastolic 51–87; PULSE 59–144; RESP 2–24; TEMP 36–37.3; O2SAT 91–98
[2024-06-02] MEDS: POTASSIUM CHLORIDE/D5-0.45NACL 1,000 ML 25 MEQ IV (00:41)
[2024-06-02] MEDS: Normal Saline Flush 10 ML SYR IVP ×3 (01:21→21:48)
[2024-06-02] MEDS: methylPREDNISolone SUCC 125 MG VIAL 60 MG IVP ×3 (01:22→18:41)
[2024-06-02 07:44] LABS: Bilirubin Negative (Negative); Blood Negative (Negative); Clarity Sl Cloudy (Clear); Glucose Negative (Negative); Ketones Negative (Negative); Leukocyte Esterase Moderate (Negative); Nitrite Negative (Negative); Specific Gravity 1.015 (1.005-1.025); Urobilinogen 0.2 mg/dL (Up to 0.2); pH 5.5 (5-8)
[2024-06-02 07:47] LABS: ALT 24 U/L (14-59); AST 19 U/L (15-37); Albumin 3.8 g/dL (3.4-5.0); Alkaline Phosphatase 70 U/L (46-116); Anion Gap 14.8 mmol/L (3-11); BUN 33 mg/dL (7-18); Bilirubin, Total 0.48 mg/dL (0.2-1.0); CO2 26.2 mmol/L (21.0-32.0); CREATININE 1.5 mg/dL (0.55-1.02); Calcium 9.5 mg/dL (8.5-10.1); Chloride 105 mmol/L (98-107); Estimated GFR 34.79 (mL/min/1.73m2); Glucose 196 mg/dL (74-106); Magnesium 2.1 mg/dL (1.8-2.4); NT-proBNP 2325 pg/mL (<300); Potassium 3.7 mmol/L (3.5-5.1); Sodium 146 mmol/L (136-145); Total Protein 7.5 g/dL (6.4-8.2)
[2024-06-02 07:53] LABS: Bacteria Few HPF (Negative); C & S Indicated? Yes; Casts Negative LPF (Negative); Crystals Negative HPF (Negative); Epithelial Cells Few HPF (Negative); Mucus Negative (Negative); Other Cells Rare Transitional (Negative); RBC 0-2 HPF (0-2); WBC 20-50 HPF (0-5)
--- NOTE | 2024-06-02 07:56 | RESPIRATORY ---
Addendum entered by Luma Gage 06/02/24 18:15: 1808 Pt states her chest tightness has resolved at this time; pt arm sore, placed warm blankets around arm. Addendum entered by Luma Gage 06/02/24 12:37: 1225 Called by RN to check on pt; pt denies SOB, does have audible wheeze and expiratory wheeze. Pt appears slightly SOB but denies this. Pt still producing thick yellow/drake sputum. RN reports pt HR increased to 140 post tx, will request change to xoponex tx. MD to visit pt. Addendum entered by Luma Gage 06/02/24 11:05: 1015 Pt states she is a little bit SOB; pt has lower airway wheezing as well as laryngeal wheeze and secretions that she is unable to cough up. Acapella done with pt with nonproductive cough. Pt does not appear to be in 1025 MD and RN aware, RN to slow fluid administration Original Note: 06/02/2024 Pt denies SOB at this time and states she does not feel the need for a neb until scheduled tx at 1200
--- NOTE | 2024-06-02 08:47 | INITIAL_ITS ---
Date of service: 06/02/24 Time of Service: 08:47 Care Management Initial Assmt Initial Assessment Reason for Hospitalization: COPD Functional Status/Living Situation Patient Presentation: Kathleen was sitting up in a chair visiting with her son Chandu when CM met with her. She easily engaged with CM and was agreeable to conversation. Kathleen lives alone in a single family home in [facility]. She has 3 other children besides Chandu: she has daughters in [place], and in [facility] and a son in [place]. Her son Chandu lives close by and visits her at least twice a day to ensure she is OK and to help with meals and other things. Kathleen uses a beronica-walker but does not receive any community services. 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) Instrumental Activities of Daily Living (ADLs): Independent Medications Medication Management: No Issues/Barriers identified Physical Functioning/Mobility Assistive Device: beronica-walker Advance Directives Advance Directives: Do you have an Advance Directive: Y 12/29/22 09:52 AD On File at [facility]: Y 12/29/22 09:52 Date Asked 03/20/24 03/20/24 10:43 AD Date Reviewed 03/15/24 03/15/24 14:33 COLST On File at [facility] COLST Date Scanned Code Status Resuscitation Status DNR/DNI Portal Pt does not currently have a portal and education provided: No Insurance Coverage/Financial Issues Insurance: Medicare [employer] Supplement Care Team Visit Care Team Role Provider Type Samir Garcia NP Primary Care Provider NURSE PRACTITIONER MARLENA Enrique Emergency Provider PHYSICIANS ASSISTANT Ben Hinton Admit Provider NON-[facility] STAFF PHYSICIAN Attending Provider Discharge Potential Discharge Needs: PCP F/U Appt Anticipated Barriers to Discharge: None Identified Patient/Family Education Needs: Review discharge instructions, discuss Ask Me Three Transportation: Private vehicle Plan: Anticipate Kathleen will be discharged home with no new services when medically cleared. She will follow up with her PCP and plan of care and transport with family. CM will follow and continue to assess for discharge needs. PFSH All Active Problems (Updated 06/02/24 @ 07:01 by Ben Hinton) CKD (chronic kidney disease) (Chronic) Acute exacerbation of chronic obstructive pulmonary disease (Acute) Hypernatremia (Acute) Hypoxia (Acute) Hypokalemia (Acute) Bilateral sensorineural hearing loss (Acute) Chest congestion (Acute) Fatigue (Acute) Venous insufficiency (Acute) Atherosclerosis of artery of both lower extremities (Acute) Onychomycosis (Acute) Pain in joint, foot, left (Acute) Pain in right foot (Acute) Knee pain, right (Acute) Trochanteric bursitis of left hip (Acute) Toe pain, left (Acute) Toe pain, right (Acute) Essential hypertension (Chronic 03/30/13) Hyperlipidemia (Acute) Former cigarette smoker (Acute) Pleural effusion (Acute) Anemia (Chronic) Pulmonary nodules/lesions, multiple (Acute) Pulmonary hypertension (Acute) Left hemiparesis (Acute) 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 Due repeat MRI in 10/2022. Counseling regarding advanced directives and goals of care (Acute) CVA (cerebral vascular accident) (Chronic) Neuro est. between 04/2020-11/2021 Grief reaction (Chronic) Spouse 08/13/21 passed Carotid stenosis, left (Acute) 50-69% stenosis 04/2022; complete obstruction right internal carotid. Shoulder arthralgia (Chronic) Polyp of colon (Acute) tubular adenoma Peripheral vascular disease (Acute) Jul 2014 [facility] aorto bifem bypass LEFT ILIAC STENT [facility] 03/2010 Lumbago (Chronic 05/10/13) Constipation (Chronic 11/14/17) Medical History Pneumonia Left hip pain POCUS 09/26/23 Congestive heart failure Productive cough Left upper quadrant abdominal pain Chronic obstructive lung disease PFT'S 2009 FEV 1.15=59% continues to smoke Pleural effusion Ischemic cerebrovascular accident (CVA) due to atherosclerosis of large extracranial artery Perichondritis Disorder of ear, left Hand pain, left Anxiety about health Seizures Smoker (10/19/16) Diverticulitis of colon H/O SIGMOID COLECTOMY Surgical History S/P partial colectomy WRIST/THUMB SURGERY LEFT THUMB LEFT WRIST RIGHT THUMB Ligation of fallopian tube Trigger Finger release Rotator Cuff Repair RIGHT Extraction of cataract B/L 04/2013 Family History Mother Diabetes Essential hypertension Stroke Father , 55 Heart disease Stroke Brother , 71 Complications from surgery No problems noted. Son No problems noted. Son No problems noted. Daughter No problems noted. Daughter No problems noted. Social History Smoking/Tobacco Use Status: Former Tobacco Use tobacco type: cigarettes Quit Date: 08/04/22 Tobacco: How many years used: 63 Quit status: considering quitting Second Hand Exposure: Yes Smoking risk assessment performed?: Yes Alcohol Intake: never Drug use: Rarely Counseling given: No Counseling provided: none Caregiver/Support person: No Household members: none Housing: house Number of Children: 4 Communication Needs: Hard of Hearing Do you need help understanding health information?: Rarely Pets and animals: Yes Pets and animals: dog(s) Sexually active: No Do you think of yourself as: straight/heterosexual Current gender identity: female What is your relationship status?: How often do you talk on the phone with friends or family?: three or more times per week How often do you get together with friends or relatives?: decline to answer How often do you attend methodist or episcopalian services?: 4 or more times per year Do you belong to any clubs or organized social groups?: no Panel score (0-1 are the most socially isolated patients): 2 What type of physical activity do you participate in: none Duration: 15-30 minutes/day Frequency: 3-4 times per week Darlene/Hinduism: No preference Special darlene needs: No Seatbelt use: always Helmet use: No Drive intox or ride w/intox courtesy van driver: No Do you feel safe at home: Yes Do you feel safe in your relationship?: Yes Additional Social history: Pt smoked for 60yrs quit aug 2022. SDOH(Care Management) Screening Will the Patient Participate in the Screening?: Declined to provide Do you worry about having a steady place to live?: choose not to answer
[2024-06-02] MEDS: Enoxaparin 30 MG/0.3 ML SYR SC (08:56)
[2024-06-02] MEDS: Multivitamin w/Minerals TAB 1 TAB PO (08:57)
[2024-06-02] MEDS: Sertraline 100 MG TAB PO (08:57)
[2024-06-02] MEDS: Ferrous Sulfate 325 MG TAB PO (08:57)
[2024-06-02] MEDS: Pantoprazole 40 MG TABCR PO (08:57)
[2024-06-02] MEDS: DOXYCYCLINE 100 MG in Normal Saline 100 ML IVPB ×2 (10:50→21:47)
[2024-06-02] MEDS: Albuterol/Ipratropium 3 ML UPD VIAL UPD ×2 (11:06→23:47)
--- NOTE | 2024-06-02 12:30 | RT.EKG_ITS ---
APPROVED REPORT Exam: Resting ECG Reason for Exam: irregular heart rate Patient Location: I HR:105 bpm ECG Measurements Heart Rate 105 AXIS NM [id number] P [id number] QRSd 80 QRS 47 QT 360 T 75 QTc 476 Conclusion Sinus rhythm with multiple premature atrial contractions Nonspecific repol abnormality, diffuse leads...ST dep, T flat/neg, ant/lat/inf
--- NOTE | 2024-06-02 12:45 | PGE_ITS ---
Date of Service Date of service: 06/02/24 Time of Service: 12:46 Assessment and Plan Assessment and plan (1) Acute exacerbation of chronic obstructive pulmonary disease: Start date: 06/01/24 Status: Acute Assessment and plan: This is an 83-year-old lady with at least COPD exacerbation and bronchitis with chest x-ray revealing no acute infiltrates. Her oxygen needs have increased at home and she is improved now with IV Solu-Medrol and aggressive nebulizer treatments. She has no audible wheezes on exam after being hospitalized for several hours. She will continue on aggressive nebulizers IV antibiotics with ceftriaxone and doxycycline and Solu-Medrol switching to prednisone as tolerated. Because of her recent cardiac event, and question of CHF with being given mild IV hydration with patient having hyponatremia, echocardiogram should be updated. She did have increased PA pressures and preserved left ventricular ejection fraction more than a year ago in 2022. Plans are for the patient to return home. She is a DNR/DNI. Plan on continuing iv until tomorrow. CW nebulizer/abx/steroids. Plan on dc in a few days (2) Hypoxia: Start date: 06/01/24 Status: Acute Assessment and plan: Now not requiring oxygen supplementation at rest with pulse ox of 90% on room air. Oxygen supplement as needed with increased ambulation. Continue aggressive treatment of COPD exacerbation. Convert to oral therapy as tolerated. (3) Hypernatremia: Start date: 06/01/24 Status: Acute Assessment and plan: Recheck labs with gentle IV hydration. Patient will receive 1 L of IV fluids with potassium supplement. Encourage oral intake and hold Lasix for now. She may be reinitiated on the lower dose of Lasix at discharge after echocardiogram and possible. Sodium at 134. CW current plan (4) Hypokalemia: Start date: 06/01/24 Status: Acute Assessment and plan: Currently on furosemide 40 mg daily and no potassium supplement. 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 This appears stable. Potassium is currently at 134 (5) Congestive heart failure: Assessment and plan: Hold Lasix for now and at discharge possibly decreased to 20 mg daily. Patient chronically does not have peripheral edema. She was slightly dry with hypernatremia and hypokalemia upon admission. She lives alone. Follow-up echocardiogram. Troponins were negative. Qualifiers: Heart failure type: right-sided Heart failure chronicity: chronic Qualified Code(s): I50.812 - Chronic right heart failure (6) CKD (chronic kidney disease): Status: Chronic Assessment and plan: Monitor labs daily. Qualifiers: Chronic kidney disease stage: stage 3 (moderate) Chronic kidney disease stage 3 subtype: stage 3b (GFR 30-44) Qualified Code(s): N18.32 - Chronic kidney disease, stage 3b Subjective Subjective Interval history since last seen: Pt seen and examined in her room this am. Pt does endorse a productive cough. POC discussed with pt as well as at MDR with bedside nurse. Exam Narrative Exam Narrative: General: Patient appears appropriate for age, mildly obese, alert and oriented x 3 and in no acute distress. HEENT: Normocephalic, eyes with pupils equal and reactive to light symmetrically, extraocular movement intact and sclera anicteric. Oropharynx with moist mucosa. Neck: Supple without JVD. Back: Kyphotic without CVA tenderness. Lungs: Fair aeration with no focalizing rales or rhonchi but bronchovesicular breath sounds diffusely with no expiratory wheeze. She is breathing comfortably at rest. She is not on oxygen. Breast: Exam deferred. Heart: Irregular irregular rhythm with frequent ectopy, normal rate. No appreciable murmur or gallop. Abdomen: Obese contour, soft to palpation with no palpable hepatosplenomegaly. No focal tenderness, guarding or rebound. Bowel sounds positive all quadrants. Genitalia/rectal: Exam deferred. Extremities: Left shoulder is abducted and fixed with tenderness to attempt of movement, left elbow is flexed and fixed with and having flexion contractures and patient having minimal movement. Left lower extremity slightly weak. No peripheral edema. No clubbing or cyanosis. Fair capillary refill. Skin: Normal color, warm and dry. Neuro: Left upper extremity findings and left lower extremity findings as above, cranial nerves II to XII grossly intact, no other focalizing motor deficits. No tremor. Psych: Flattened affect with depressed mood, no abnormal thought processes. Remote and recent memory grossly intact. Objective Last Vital Signs Temp 36.7 C 06/02/24 11:46 Pulse 115 H 06/02/24 12:21 Resp 17 06/02/24 11:46 BP 113/60 06/02/24 11:46 Pulse Ox 96 06/02/24 11:46 Laboratory Results - last 24 hr 06/01/24 06/01/24 06/01/24 17:55 18:12 19:31 WBC 13.84 H RBC 4.60 Hgb 13.8 Hct 44.5 MCV 97 H MCH 30.0 MCHC 31.0 L RDW 13.3 Plt Count 171 MPV 9.9 Immature Gran % 0.4 Neutrophils % 77.5 Lymphocytes % 13.0 Monocytes % 8.2 Eosinophils % 0.7 Basophils % 0.2 Nucleated RBC % 0.0 Absolute Neutrophils 10.73 H Absolute Lymphocytes 1.80 Absolute Monocytes 1.13 H Absolute Eosinophils 0.10 Absolute Basophils 0.03 VBG pH 7.39 VBG pCO2 48 VBG pO2 42 VBG HCO3 29 H VBG Total CO2 26 VBG O2 Saturation 77 VBG Base Excess 4 H VBG Lactate 1.5 H Sodium 146 H Potassium 3.3 L Chloride 106 Carbon Dioxide 30.5 Anion Gap 9.5 BUN 34 H Creatinine 1.4 H Est GFR (CKD-EPI 2020) 37.80 Glucose 112 H Calcium 9.4 Magnesium 2.1 Total Bilirubin 0.48 AST 22 ALT 26 Alkaline Phosphatase 88 Troponin I 41 38 NT-Pro-B Natriuret Pep 2365 H Total Protein 8.2 Albumin 4.5 Procalcitonin < 0.10 Urine Color Urine Clarity Urine pH Ur Specific [place] Urine Protein Urine Ketones Urine Blood Urine Nitrite Urine Bilirubin Urine Urobilinogen Ur Leukocyte Esterase Urine RBC Urine WBC Ur Epithelial Cells Urine Crystals Urine Bacteria Urine Casts Urine Mucus Urine Other Ur Culture Indicated? Urine Glucose COVID-19 Source NASOPHARYNX SARS-CoV-2 (PCR) Negative Influenza Type A (PCR) Negative Influenza Type B (PCR) Negative RSV (PCR) Negative 06/01/24 06/02/24 06/02/24 21:10 05:35 06:37 WBC Cancelled RBC Cancelled Hgb Cancelled Hct Cancelled MCV Cancelled MCH Cancelled MCHC Cancelled RDW Cancelled Plt Count Cancelled MPV Cancelled Immature Gran % Neutrophils % Lymphocytes % Monocytes % Eosinophils % Basophils % Nucleated RBC % Absolute Neutrophils Absolute Lymphocytes Absolute Monocytes Absolute Eosinophils Absolute Basophils VBG pH VBG pCO2 VBG pO2 VBG HCO3 VBG Total CO2 VBG O2 Saturation VBG Base Excess VBG Lactate Sodium 146 H Potassium 3.7 Chloride 105 Carbon Dioxide 26.2 Anion Gap 14.8 H BUN 33 H Creatinine 1.5 H Est GFR (CKD-EPI 2020) 34.79 Glucose 196 H Calcium 9.5 Magnesium 2.1 Total Bilirubin 0.48 AST 19 ALT 24 Alkaline Phosphatase 70 Troponin I 30 NT-Pro-B Natriuret Pep 2325 H Total Protein 7.5 Albumin 3.8 Procalcitonin Urine Color Urine Clarity Urine pH Ur Specific [place] Urine Protein Urine Ketones Urine Blood Urine Nitrite Urine Bilirubin Urine Urobilinogen Ur Leukocyte Esterase Urine RBC Urine WBC Ur Epithelial Cells Urine Crystals Urine Bacteria Urine Casts Urine Mucus Urine Other Ur Culture Indicated? Urine Glucose COVID-19 Source SARS-CoV-2 (PCR) Influenza Type A (PCR) Influenza Type B (PCR) RSV (PCR) 06/02/24 07:30 WBC RBC Hgb Hct MCV MCH MCHC RDW Plt Count MPV Immature Gran % Neutrophils % Lymphocytes % Monocytes % Eosinophils % Basophils % Nucleated RBC % Absolute Neutrophils Absolute Lymphocytes Absolute Monocytes Absolute Eosinophils Absolute Basophils VBG pH VBG pCO2 VBG pO2 VBG HCO3 VBG Total CO2 VBG O2 Saturation VBG Base Excess VBG Lactate Sodium Potassium Chloride Carbon Dioxide Anion Gap BUN Creatinine Est GFR (CKD-EPI 2020) Glucose Calcium Magnesium Total Bilirubin AST ALT Alkaline Phosphatase Troponin I NT-Pro-B Natriuret Pep Total Protein Albumin Procalcitonin Urine Color Yellow Urine Clarity Sl Cloudy Urine pH 5.5 Ur Specific [place] 1.015 Urine Protein Negative Urine Ketones Negative Urine Blood Negative Urine Nitrite Negative Urine Bilirubin Negative Urine Urobilinogen 0.2 Ur Leukocyte Esterase Moderate H Urine RBC 0-2 Urine WBC 20-50 H Ur Epithelial Cells Few Urine Crystals Negative Urine Bacteria Few Urine Casts Negative Urine Mucus Negative Urine Other Rare Transitional Ur Culture Indicated? Yes Urine Glucose Negative COVID-19 Source SARS-CoV-2 (PCR) Influenza Type A (PCR) Influenza Type B (PCR) RSV (PCR) Time Spent with Patient Time Spent with Patient: 25-34 minutes Time was spent: preparing to see the patient(eg.review tests), obtaining and/or reviewing separately otained hiistory, ordering medications,tests, procedures, referring, communicating with other health primary care coordinator, indepentently interpreting results, counseling the patient and care coordination
[2024-06-02] MEDS: Acetaminophen 325 MG TAB PO ×2 (14:33→19:03)
[2024-06-02] MEDS: Levalbuterol 1.25 MG/3 ML UPD VIAL UPD (17:10)
[2024-06-02] MEDS: Atorvastatin 40 MG TAB 80 MG PO (20:14)
[2024-06-02] MEDS: cefTRIAXone 1 GM/50 ML BAG IVPB (20:15)
[2024-06-03] VITALS (17 sets, daily range): BP systolic 102–123; BP diastolic 49–71; PULSE 67–100; RESP 2–24; TEMP 36.5–37; O2SAT 82–99
[2024-06-03] MEDS: methylPREDNISolone SUCC 125 MG VIAL 60 MG IVP ×2 (01:34→10:24)
[2024-06-03] MEDS: Albuterol/Ipratropium 3 ML UPD VIAL UPD ×4 (05:39→23:15)
[2024-06-03 07:21] LABS: Abs Immature Grans 0.08 10^3/uL (0.0-0.06); Absolute Eosinophil Count 0.02 10^3/uL (0.0-0.7); Absolute Lymphocyte Count 0.59 10^3/uL (1.2-3.4); Absolute Monocyte Count 0.44 10^3/uL (0.1-0.8); Basophils % 0.1 %; Eosinophils % 0.1 %; HCT 36.5 % (36.0-46.0); HGB 11.8 g/dL (11.2-15.7); Immature Grans % 0.5 %; Lymphocytes % 3.9 %; MCHC 32.3 % (32.0-36.0); MCV 93 fL (80-95); MPV 10.6 fL (8.0-11.0); Monocytes % 2.9 %; Neutrophils % 92.5 %; Platelet Count 152 10^3/uL (130-400); RBC 3.93 10^6/uL (3.93-5.22); RDW 13.5 % (11.7-14.6); RDW-SD 46.1 fL
[2024-06-03 07:27] LABS: Absolute Basophil Count 0.02 10^3/uL (0.0-0.2); Absolute Neutrophil Count 13.97 10^3/uL (1.2-6.7)
[2024-06-03 07:43] LABS: ALT 22 U/L (14-59); AST 21 U/L (15-37); Albumin 3.6 g/dL (3.4-5.0); Alkaline Phosphatase 67 U/L (46-116); Anion Gap 9.6 mmol/L (3-11); BUN 42 mg/dL (7-18); Bilirubin, Total 0.48 mg/dL (0.2-1.0); CO2 26.4 mmol/L (21.0-32.0); CREATININE 1.3 mg/dL (0.55-1.02); Calcium 9.6 mg/dL (8.5-10.1); Chloride 106 mmol/L (98-107); Estimated GFR 41.31 (mL/min/1.73m2); Glucose 189 mg/dL (74-106); Potassium 3.2 mmol/L (3.5-5.1); Sodium 142 mmol/L (136-145); Total Protein 6.9 g/dL (6.4-8.2)
[2024-06-03] MEDS: Levalbuterol 1.25 MG/3 ML UPD VIAL UPD (08:17)
[2024-06-03] MEDS: Ketoconazole 2% CREAM 15 GM TUBE TP (08:54)
[2024-06-03] MEDS: Multivitamin w/Minerals TAB 1 TAB PO (08:55)
[2024-06-03] MEDS: Sertraline 100 MG TAB PO (08:55)
[2024-06-03] MEDS: Ferrous Sulfate 325 MG TAB PO (08:55)
[2024-06-03] MEDS: Pantoprazole 40 MG TABCR PO (08:55)
[2024-06-03] MEDS: Normal Saline Flush 10 ML SYR IVP ×3 (10:21→21:01)
[2024-06-03] MEDS: DOXYCYCLINE 100 MG in Normal Saline 100 ML IVPB (10:21)
--- NOTE | 2024-06-03 11:38 | PGE_ITS ---
Date of Service Date of service: 06/03/24 Time of Service: 11:38 Assessment and Plan Assessment and plan (1) Acute exacerbation of chronic obstructive pulmonary disease: Start date: 06/01/24 Status: Acute Assessment and plan: This is an 83-year-old lady with at least COPD exacerbation and bronchitis with chest x-ray revealing no acute infiltrates. Her oxygen needs have increased at home and she is improved now with IV Solu-Medrol and aggressive nebulizer treatments. Changed to oral prednisone.abx changed to oral. She did have increased PA pressures and preserved left ventricular ejection fraction more than a year ago in 2022. Echo Tuesday Plans are for the patient to return home. She is a DNR/DNI. CW nebulizer/abx/steroids. Plan on dc possibly tomorrow after echo. (2) Hypoxia: Start date: 06/01/24 Status: Acute Assessment and plan: Now not requiring oxygen supplementation at rest with pulse ox of 92-94% on room air. Oxygen supplement as needed with increased ambulation. Continue aggressive treatment of COPD exacerbation. (3) Hypernatremia: Start date: 06/01/24 Status: Acute Assessment and plan: She may be reinitiated on the lower dose of Lasix at discharge after echocardiogram (4) Hypokalemia: Start date: 06/01/24 Status: Acute Assessment and plan: Currently on furosemide 40 mg daily. 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 This appears stable. (5) Congestive heart failure: Assessment and plan: Hold Lasix for now and at discharge possibly decreased to 20 mg daily. Patient chronically does not have peripheral edema. She was slightly dry with hypernatremia and hypokalemia upon admission. She lives alone. Follow-up echocardiogram. Troponins were negative. Qualifiers: Heart failure type: right-sided Heart failure chronicity: chronic Qualified Code(s): I50.812 - Chronic right heart failure (6) CKD (chronic kidney disease): Status: Chronic Assessment and plan: Monitor labs daily. Cr 1.3 - at baseline Qualifiers: Chronic kidney disease stage: stage 3 (moderate) Chronic kidney disease stage 3 subtype: stage 3b (GFR 30-44) Qualified Code(s): N18.32 - Chronic kidney disease, stage 3b Subjective Subjective Patient reports: no new complaints, feels better, tolerating liquids well, tolerating a regular diet, voiding w/o difficulty, bowel movement and afebrile; denies no flatus, diarrhea, nausea, vomiting or shortness of breath Interval history since last seen: Patient states she is feeling better and is breathing well. No oxygen requirement at this time. She would like levalbuteral neb for at home. Exam Narrative Exam Narrative: General: Patient appears appropriate for age, mildly obese, alert and oriented x 3 and in no acute distress. HEENT: Normocephalic, eyes with pupils equal and reactive to light symmetrically, extraocular movement intact and sclera anicteric. Oropharynx with moist mucosa. Neck: Supple without JVD. Back: Kyphotic without CVA tenderness. Lungs: Fair aeration with no focalizing rales or rhonchi but bronchovesicular breath sounds diffusely with no expiratory wheeze. She is breathing comfortably at rest. She is not on oxygen. Breast: Exam deferred. Heart: Irregular irregular rhythm with frequent ectopy, normal rate. No appreciable murmur or gallop. Abdomen: Obese contour, soft to palpation with no palpable hepatosplenomegaly. No focal tenderness, guarding or rebound. Bowel sounds positive all quadrants. Genitalia/rectal: Exam deferred. Extremities: Left shoulder is abducted and fixed with tenderness to attempt of movement, left elbow is flexed and fixed with and having flexion contractures and patient having minimal movement. Left lower extremity slightly weak. No peripheral edema. No clubbing or cyanosis. Fair capillary refill. Skin: Normal color, warm and dry. Neuro: Left upper extremity findings and left lower extremity findings as above, cranial nerves II to XII grossly intact, no other focalizing motor deficits. No tremor. Psych: Flattened affect with depressed mood, no abnormal thought processes. Remote and recent memory grossly intact. Objective Last Vital Signs Temp 36.6 C 06/03/24 11:28 Pulse 89 06/03/24 11:28 Resp 19 06/03/24 11:28 BP 105/49 L 06/03/24 11:28 Pulse Ox 95 06/03/24 11:28 Laboratory Results - last 24 hr 06/03/24 06:28 WBC 15.10 H RBC 3.93 Hgb 11.8 D Hct 36.5 MCV 93 D MCH 30.0 MCHC 32.3 RDW 13.5 Plt Count 152 MPV 10.6 Immature Gran % 0.5 Neutrophils % 92.5 Lymphocytes % 3.9 Monocytes % 2.9 Eosinophils % 0.1 Basophils % 0.1 Nucleated RBC % 0.0 Absolute Neutrophils 13.97 H Absolute Lymphocytes 0.59 L Absolute Monocytes 0.44 Absolute Eosinophils 0.02 Absolute Basophils 0.02 Sodium 142 Potassium 3.2 L Chloride 106 Carbon Dioxide 26.4 Anion Gap 9.6 BUN 42 H Creatinine 1.3 H Est GFR (CKD-EPI 2020) 41.31 Glucose 189 H Calcium 9.6 Total Bilirubin 0.48 AST 21 ALT 22 Alkaline Phosphatase 67 Total Protein 6.9 Albumin 3.6 Time Spent with Patient Time Spent with Patient: 25-34 minutes Time was spent: preparing to see the patient(eg.review tests), ordering medications,tests, procedures, referring, communicating with other health career education teacher, indepentently interpreting results, counseling the patient and care coordination
[2024-06-03] MEDS: Potassium Chloride 20 MEQ TABCR 40 MEQ PO (12:49)
[2024-06-03] MEDS: Acetaminophen 325 MG TAB PO (12:50)
[2024-06-03] MEDS: cefTRIAXone 1 GM/50 ML BAG IVPB (21:00)
[2024-06-03] MEDS: Atorvastatin 40 MG TAB 80 MG PO (21:00)
[2024-06-03] MEDS: Doxycycline Hyclate 100 MG CAP PO (21:00)
[2024-06-04] VITALS (7 sets, daily range): BP systolic 122–123; BP diastolic 60; PULSE 71–93; RESP 2–20; TEMP 36.3–36.6; O2SAT 91–97
[2024-06-04] MEDS: Albuterol/Ipratropium 3 ML UPD VIAL UPD ×2 (06:06→11:09)
[2024-06-04 06:56] LABS: HCT 38.4 % (36.0-46.0); HGB 12.4 g/dL (11.2-15.7); MCH 30.6 pg (27.0-33.0); MCHC 32.3 % (32.0-36.0); MCV 95 fL (80-95); MPV 11.1 fL (8.0-11.0); Platelet Count 151 10^3/uL (130-400); RBC 4.05 10^6/uL (3.93-5.22); RDW 13.6 % (11.7-14.6); RDW-SD 47.8 fL; WBC 14.35 10^3/uL (4.4-10.8)
[2024-06-04 07:17] LABS: Magnesium 2.3 mg/dL (1.8-2.4)
[2024-06-04 07:21] LABS: ALT 26 U/L (14-59); AST 18 U/L (15-37); Albumin 3.5 g/dL (3.4-5.0); Alkaline Phosphatase 66 U/L (46-116); Anion Gap 8.8 mmol/L (3-11); BUN 47 mg/dL (7-18); Bilirubin, Total 0.36 mg/dL (0.2-1.0); CO2 28.2 mmol/L (21.0-32.0); CREATININE 1.5 mg/dL (0.55-1.02); Calcium 9.7 mg/dL (8.5-10.1); Chloride 110 mmol/L (98-107); Estimated GFR 34.79 (mL/min/1.73m2); Glucose 125 mg/dL (74-106); Potassium 4.1 mmol/L (3.5-5.1); Sodium 147 mmol/L (136-145); Total Protein 6.8 g/dL (6.4-8.2)
[2024-06-04] MEDS: Enoxaparin 30 MG/0.3 ML SYR SC (08:41)
[2024-06-04] MEDS: Doxycycline Hyclate 100 MG CAP PO (08:42)
[2024-06-04] MEDS: predniSONE 20 MG TAB 40 MG PO (08:42)
[2024-06-04] MEDS: Acetaminophen 325 MG TAB PO (08:42)
[2024-06-04] MEDS: Sertraline 100 MG TAB PO (08:42)
[2024-06-04] MEDS: Pantoprazole 40 MG TABCR PO (08:42)
--- NOTE | 2024-06-04 09:54 | PDOC.CMPRO ---
Date of service: 06/04/24 Time of Service: 09:54 Care Management Progress Note Discharge Potential Discharge Needs: PCP F/U Appt Anticipated Barriers to Discharge: None Identified Patient/Family Education Needs: Review discharge instructions, discuss Ask Me Three Transportation: Private vehicle Plan: Anticipate Kathleen will be discharged home with no new services when medically cleared. She will follow up with her PCP and plan of care and transport with family. CM will follow and continue to assess for discharge needs. SDOH(Care Management) Screening Will the Patient Participate in the Screening?: Declined to provide Do you worry about having a steady place to live?: choose not to answer
[2024-06-04] MEDS: Normal Saline Flush 10 ML SYR IVP (11:43)
--- NOTE | 2024-06-04 13:26 | DSE_ITS ---
<Statement entered by Rommel Hadley MD - 06/05/24 11:18> agree with above Date of service: 06/04/24 Time of Service: 13:27 DS: Diagnosis Discharge Diagnosis (1) Acute exacerbation of chronic obstructive pulmonary disease: Status: Resolved (2) Hypoxia: Status: Resolved (3) Hypokalemia: Status: Resolved (4) CKD (chronic kidney disease): Status: Chronic Discharge Plan Disposition Patient Disposition: Home W/Home Health Services Condition: Improving Discharge Details Reason For Visit: COPD exacerbation, Hypoxemia, Hyponatremia, [place] Admit Date/Time: 06/01/24 20:42 Admit Provider: Ben Hinton Attending Provider: Ben Hinton Primary Care Provider: Samir Casillas Hospital Course Hospital Course: This 83 years old female patient , leaving alone, with a past medical history of non-STEMI, COPD, pulmonary hypertension, left-sided hemiparesis status post CVA, HFpEF on furosemide, hypertension, presented to the ED on 06/01/2024 for evaluat ion of increased dyspnea with productive cough with increased sputum starting 7 days prior to presentation. On arrival to the house EMS found her saturation in oxygen to be in the 70'simprovig to the low 90's with O2 supplementayion . No fevers were reported but the patient was tachypneic with respiratory rate 24. The workup in the ED showed pneumonia chest x-ray without infiltrates, suggesting underlying COPD and hyperinflated lungs. CBC shows leukocytosis at 13.51,urine showed leukocyte esterase. The patient was admitted to the medical surgical floor for COPD exacerbation, possible sepsis, possible UTI and hypoxic respiratory failure. In the ED the patient received IV solumedrol, doxycycline for atypical pneumonia versus COPD exacerbation. During the stay ceftriaxone was added to the regimen and steroids and doxycycline transitioned to oral form.The patient had no further oxygen requirement. The patient will be discharged home on a short course of prednisone, doxycycline and cefpodoxime. An echocardiogram was completed resulting with findings of an LVEF of 51-54%, mild global hypokinesis of the left ventricle with an RVSP of 42 mmHg. The patient will resume her oral home d ose of furosemide with further adjustment per PCP. Statin therapy dose was adjusted to the patient history of NSTEMI type 1 presentation on 03/2024.The patient was encouraged to stay hydrated with oral fluid intake.The patient will be discharge home with home health for physical therapy and nursing for medicine compliance in the setting of pharmacologic regimen modification and for the monitoring of symptoms exacerbation.Due to residual left- sided hemeparesis the from previous stroke the patient would benefit from occupational therapy evaluation and from a medical office technology instructor for coordination of care. The patient will have to follow up with her PCP within 7 days of discharge and will need a cardiology referral as per discussion with primary care provider. Discussed with Dr. Hadley. Home Meds and New Rx's Prescriptions: New ipratropium bromide 0.02 % solution 2.5 ml inhalation Q6H PRNQty: 62.5 0RF levalbuterol HCl 1.25 mg/3 mL solution for nebulization 1.25 mg inhalation Q6H PRNQty: 72 0RF Rx Instructions: Reordered from discharge as this was not filled , in combination with ipratropium Continued Centrum Silver Women 8 mg iron-400 mcg-300 mcg tablet 1 tab PO DAILY ferrous sulfate 325 mg (65 mg iron) tablet 325 mg PO DAILY mometasone 0.1 % cream 1 applic topical BID PRN (Reason: rash) Qty: 45 0RF Rx Instructions: apply to affected area fluticasone propion-salmeterol [Advair HFA] 115-21 mcg/actuation HFA aerosol inhaler 2 puff inhalation BID Qty: 12 8RF Colace Clear 50 mg capsule 100 mg PO TID PRN (Reason: constipation) Qty: 540 4RF ketoconazole 2 % cream 1 applic topical DAILY Qty: 120 6RF Rx Instructions: Apply to toenails once daily pantoprazole 40 mg tablet,delayed release (DR/EC) 40 mg PO DAILY@0730 Qty: 90 3RF sertraline 100 mg tablet 100 mg PO DAILY Qty: 90 3RF Inhaler, Assist Devices [Pocket Chamber] 1 ea miscellaneous DIRECTED Qty: 0 0RF Held ipratropium-albuterol 0.5 mg-3 mg(2.5 mg base)/3 mL solution for nebulization 3 ml inhalation Q4H PRN (Reason: wheezing) Qty: 540 8RF Hold Instructions: Resume on 06/12/24. Changed to Xopenex and ipratropium furosemide 20 mg tablet 40 mg PO DAILY Qty: 180 1RF Hold Instructions: Resume on 06/12/24. Renew as per PCP, ran out at home , reordering short course from inpatient discharge Patient Comments: Ran out. Trying to get new prescription. Discontinued atorvastatin 20 mg tablet 20 mg PO QHS Qty: 90 4RF No Action potassium chloride 20 mEq tablet extended release 20 meq PO DAILY Qty: 90 3RF atorvastatin [Lipitor] 40 mg tablet 40 mg PO QPM Qty: 30 0RF Discharge Instructions Stand Alone Forms: Nursing Discharge Form Referrals: Samir Casillas NP [Primary Care Provider] - 06/12/24 1:20 pm Activity:: Activity as Tolerated Equipment/Supplies:: Walker Diet:: heart healthy Discharge Orders Discharge Orders: Discharge Order (Routine); Ordered 06/04/24 Ordered By: Kathleen Sung Discharge Data Discharge Date/Time-TO BE ENTERED AT DEPARTURE: 06/04/24 15:21 DS: Summary Time Spent with Patient providing and/or coordinating discharge services: Greater than 30 minutes Status at Discharge Functional status at discharge: uses cane/walker Overall status at discharge: patient is progressing back to baseline Mental Status: mental status grossly normal Speech and Movement: speech and movement normal Mood: congruent mood Affect: normal affect Quality:SDOH Health Related Social Needs: Health related social needs details n/a Exam Narrative Exam Narrative: Constitutional The patient is sitting in chair without acute distress and has average body habitus/is obese/ is thin. HENMT: Head is atraumatic, normocephalic, no lymphadenopathy. Facial structures with normal appearance Eyes: Well aligned, intact ROM Neuro:alert and oriented to self, person, place, time and situation. No neurological focal deficit, PERRLA Chest:Chest is symmetrical and normal appearance Resp: Normal respiratory pattern, speaks in full sentences, unlabored breathing, clear lung bilaterally but transient upper laryngeal wheezes on coughing Cardio: regular rhythm, S1, S2, no murmur, bilateral radial and dorsalis pedis pulses are positive, palpable GI: Abdomen is not distended, soft and non tender, bowel sounds are present : Negative Costovertebral angle tenderness Back/spine/Pelvis: No back tenderness, normal alignment Integumentary: No skin lesions or rash Extremities: 3/5 left upper extremity Psych: RASS 0, congruent mood and normal affect. Psych Mental Status: mental status grossly normal Speech and Movement: speech and movement normal Mood: congruent mood Affect: normal affect DS: Data Vitals/I&O Vitals and I&O: Vital Signs Temperature 36.6 C 06/04/24 11:29 Temperature Source Temporal Artery Scan 06/04/24 11:29 Pulse 80 06/04/24 11:29 Pulse Rhythm Regular 06/01/24 22:31 Pulse 106 H 06/01/24 19:30 Respiratory Rate 16 06/04/24 11:29 Respiratory Effort Short of Breath, Labored 06/01/24 22:31 Respiratory Depth Shallow 06/01/24 22:31 Respiratory Pattern Normal 06/01/24 22:31 Blood Pressure 122/60 06/04/24 11:29 Blood Pressure Mean 89 06/01/24 19:02 Blood Pressure Position Sitting 06/01/24 19:02 Pulse Oximetry 93 06/04/24 11:29 Oxygen Delivery Method Room Air 06/04/24 11:29 Oxygen Flow Rate 0 06/04/24 11:29 Pain Level 0 06/04/24 11:29 Comment per RN, let pt sleep 06/04/24 03:10 Intake & Output 06/03/24 06/04/24 06/04/24 23:59 11:59 23:59 Intake Total 910 / 1877.083 Output Total 150 / 300 400 / 400 Balance 760 / 1577.083 -390 / -390 Weight 58.6 kg Intake: IV 70 / 1037.083 Oral 840 / 840 Output: Urine 150 / 300 400 / 400 Other: Urine Color Yellow Yellow Urine Appearance Cloudy Urine Odor Normal Comment pT voided independently in bathroom. Data Completed and Pending Labs on day of discharge: Labs from last 24 hours 06/04/24 06:15 WBC 14.35 H RBC 4.05 Hgb 12.4 Hct 38.4 MCV 95 MCH 30.6 MCHC 32.3 RDW 13.6 Plt Count 151 MPV 11.1 H Sodium 147 H Potassium 4.1 Chloride 110 H Carbon Dioxide 28.2 Anion Gap 8.8 BUN 47 H Creatinine 1.5 H Est GFR (CKD-EPI 2020) 34.79 Glucose 125 H Calcium 9.7 Magnesium 2.3 Total Bilirubin 0.36 AST 18 ALT 26 Alkaline Phosphatase 66 Total Protein 6.8 Albumin 3.5 Preliminary micro results at discharge 06/02/24 14:32 Sputum Culture - Preliminary Sputum Normal Pati 06/01/24 20:42 Blood Culture - Preliminary Blood NO GROWTH 48 HOURS 06/01/24 20:35 Blood Culture - Preliminary Blood NO GROWTH 48 HOURS PFSH All Active Problems ACP (advance care planning) (Acute) CKD (chronic kidney disease) (Chronic) Bilateral sensorineural hearing loss (Acute) Chest congestion (Acute) Fatigue (Acute) Venous insufficiency (Acute) Atherosclerosis of artery of both lower extremities (Acute) Onychomycosis (Acute) Pain in joint, foot, left (Acute) Pain in right foot (Acute) Knee pain, right (Acute) Trochanteric bursitis of left hip (Acute) Toe pain, left (Acute) Toe pain, right (Acute) Essential hypertension (Chronic 03/30/13) Hyperlipidemia (Acute) Former cigarette smoker (Acute) Pleural effusion (Acute) Anemia (Chronic) Pulmonary nodules/lesions, multiple (Acute) Pulmonary hypertension (Acute) Left hemiparesis (Acute) 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 Due repeat MRI in 10/2022. Counseling regarding advanced directives and goals of care (Acute) CVA (cerebral vascular accident) (Chronic) Neuro est. between 04/2020-11/2021 Grief reaction (Chronic) Spouse 08/13/21 passed Carotid stenosis, left (Acute) 50-69% stenosis 04/2022; complete obstruction right internal carotid. Shoulder arthralgia (Chronic) Polyp of colon (Acute) tubular adenoma Peripheral vascular disease (Acute) Jul 2014 [facility] [place] LEFT [place]IAC STENT [facility] [place] Lumbago (Chronic 05/10/13) Constipation (Chronic 11/14/17) Medical History Pneumonia Hypernatremia Left hip pain POCUS 09/26/23 Left upper quadrant abdominal pain Chronic obstructive lung disease PFT'S 2009 FEV 1.15=59% continues to smoke Congestive heart failure Productive cough Pleural effusion Ischemic cerebrovascular accident (CVA) due to atherosclerosis of large extracranial artery Perichondritis Disorder of ear, left Hand pain, left Anxiety about health Seizures Smoker (10/19/16) Diverticulitis of colon H/O SIGMOID COLECTOMY Surgical History S/P partial colectomy WRIST/THUMB SURGERY LEFT THUMB LEFT WRIST RIGHT THUMB Ligation of fallopian tube Trigger Finger release Rotator Cuff Repair RIGHT Extraction of cataract B/L 04/2013 Family History Mother Diabetes Essential hypertension Stroke Father , 55 Heart disease Stroke Brother , 71 Complications from surgery No problems noted. Son No problems noted. Son No problems noted. Daughter No problems noted. Daughter No problems noted. Social History (Updated 06/21/24 @ 11:13 by Clarissa Gregory) Smoking/Tobacco Use Status: Former Tobacco Use tobacco type: cigarettes Quit Date: 09/18/23 Tobacco: How many years used: 63 Quit status: has quit before Second Hand Exposure: Yes Smoking risk assessment performed?: Yes Alcohol Intake: never Drug use: Current Sobriety Counseling given: No Counseling provided: none Caregiver/Support person: Yes Details: Son checks on me 2x a day Household members: none Housing: house Number of Children: 4 number of grandchildren: 4 Communication Needs: Hard of Hearing and Blind Education Level: college Details: some Do you need help understanding health information?: Rarely 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 Pets and animals: Yes Pets and animals: dog(s) Sexually active: No Do you think of yourself as: straight/heterosexual Current gender identity: female What is your relationship status?: How often do you talk on the phone with friends or family?: twice per week How often do you get together with friends or relatives?: three or more times per week How often do you attend protestant or faith services?: decline to answer Do you belong to any clubs or organized social groups?: no Panel score (0-1 are the most socially isolated patients): 1 What type of physical activity do you participate in: other Details: PT and OT exercises Duration: < 15 minutes/day Frequency: 3-4 times per week Darlene/Sabianism: Non jewish Special darlene needs: No Seatbelt use: always Helmet use: No (never) Drive intox or ride w/intox non emergency services ambulance driver: No (never) Firearms in home: No Do you feel safe at home: Yes Do you feel safe in your relationship?: Yes Victim of physical abuse: No Victim of emotional abuse: No Victim of sexual abuse: No Additional Social history: Pt smoked for 60yrs quit aug 2022. Time Spent with Patient Time Spent with Patient: 45-69 minutes Time was spent: preparing to see the patient(eg.review tests), obtaining and/or reviewing separately otained hiistory, ordering medications,tests, procedures, referring, communicating with other health chiropractic care, indepentently interpreting results, counseling the patient and care coordination
--- NOTE | 2024-06-04 14:20 | PDOC.CMDIS ---
Date of service: 06/04/24 Time of Service: 14:20 LACE Index Scoring Tool Questions: Length of Stay (in days): 3 Was the patient admitted via the E.D.?: Yes Comorbidities: Cerebrovascular Disease, PVD, Congestive Heart Failure, Chronic Pulmonary Disease and Liver or Renal Disease E.D. Visits: 2 Answers: Total Score: 13 Risk of Readmission: High Risk Care Management Discharge Plan Reason for Hospitalization: COPD Discharge Plan: Kathleen will be discharged home with no new services. She will follow up with her PCP and plan of care and transport via [facility] coordinated by CM. Patient/Family Education Needs: Review discharge instructions, limitations, follow up plan and discuss Ask Me Three [facility] Health Related Social Needs: No Data to Display
--- NOTE | 2024-06-04 14:35 | IN_ITS ---
PT Notes Visit Reasons: COPD exacerbation, Hypoxemia, Hyponatremia, [place] Physical Therapy Initial Evaluation Date:06/04/2024 Referring Doctor: Kathleen Sung PT Orders: PT CONSULT: Safety consult for discharge Precautions: standard, IV Access RUE Patient Profile/Admitting Diagnosis: This is an 83-year-old female patient who lives at home alone and usually is not on oxygen therapy began having increased shortness of breath with productive sputum for 7 days and pulse-oximeter at home in the 70% range when checked by EMS. She was given a DuoNeb and placed on 5 L/min per nasal cannula She reported to the ED and had no obvious infiltrate on chest x-ray but did have new onset hypoxemia but improved on room air to about 93% at rest and dropping into the 80% range with exertion. She continues to work hard with breathing with any exertion and does have a slightly elevated WBC. initiated on IV antibiotic therapy for at least bronchitis with possible early pneumonia though the chest x-ray was interpreted as no acute findings or focal infiltrates with COPD. increased BUN and sodium and slightly low potassium. She received gentle IV hydration overnight She was transferred to [facility] Surg unit for further medical management for final diagnosis of COPD Exacerbation. PMHX: CKD (chronic kidney disease) (Chronic) Acute exacerbation of chronic obstructive pulmonary disease (Acute) Hypernatremia (Acute) Hypoxia (Acute) Hypokalemia (Acute) Bilateral sensorineural hearing loss (Acute) Chest congestion (Acute) Fatigue (Acute) Venous insufficiency (Acute) Atherosclerosis of artery of both lower extremities (Acute) Onychomycosis (Acute) Pain in joint, foot, left (Acute) Pain in right foot (Acute) Knee pain, right (Acute) Trochanteric bursitis of left hip (Acute) Toe pain, left (Acute) Toe pain, right (Acute) Essential hypertension (Chronic 03/30/13) Hyperlipidemia (Acute) Former cigarette smoker (Acute) Pleural effusion (Acute) Anemia (Chronic) Pulmonary nodules/lesions, multiple (Acute) Pulmonary hypertension (Acute) Left hemiparesis (Acute) 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 occlusion (Acute) History of tobacco abuse (Acute) Seborrheic dermatitis of scalp (Acute) Nail dystrophy (Acute) Left rotator cuff tear arthropathy (Chronic) 40 mg Depo-Medrol injection: 2Dilated bile duct (Acute ~02/2022) s/p ERCP [facility], 10mm dilation, no masses. Due repeat MRI in 10/2022.Counseling regarding advanced directives and goals of care (Acute) CVA (cerebral vascular accident) (Chronic) Neuro est. between 04/2020-11/2021Grief reaction (Chronic) Spouse 08/13/21 passedCarotid stenosis, left (Acute) 50-69% stenosis 04/2022; complete obstruction right internal carotid.Shoulder arthralgia (Chronic) Polyp of colon (Acute) tubular adenoma Peripheral vascular disease (Acute) Jul 2014 [facility] [place]orto bifem bypass LEFT ILIAC STENT [facility] [place] 03/2010 Lumbago (Chronic 05/10/13) Constipation (Chronic 11/14/17) Medical History Pneumonia Left hip pain POCUS 09/26/23Congestive heart failure Productive cough Left upper quadrant abdominal pain Chronic obstructive lung disease PFT'S 2009 FEV 1.15=59% continues to smoke Pleural effusion Ischemic cerebrovascular accident (CVA) due to atherosclerosis of large extracranial artery Perichondritis Disorder of ear, left Hand pain, left Anxiety about health Seizures Smoker (10/19/16) Diverticulitis of colon H/O SIGMOID COLECTOMY Surgical History S/P partial colectomy WRIST/THUMB SURGERY LEFT THUMB LEFT WRIST RIGHT THUMB Ligation of fallopian tube Trigger Finger release Rotator Cuff Repair RIGHTExtraction of cataract B/L 04/2013 Social History/Home Situation: Pt resides alone in a single family home with ramp to enter. Her son visits 2x/day to assist with meals and household tasks. She utilizes [facility] for transportation as her son has a truck that she is unable to get into. She is independent for ADLs, light meal prep, light animal surgeon, med management and ambulation with HW. Equipment Owned/DME: Hemiwalker(HW) Subjective: Pt reports she is hoping to go home today. Objective: General Observation: Pt presented seated in chair with telemetry on. Her son was visiting. She was agreeable to participate in skilled PT evaluation. Mental Status: Alert and oriented x 4 Pain: denied ROM: Right Upper Extremity: WNL Left Upper Extremity: PROM Shoulder flexion and abduction 40 degrees, elbow flexion 100 degrees, finger flexion limited full extension Right Lower Extremity:WNL Left Lower Extremity: WNL Strength: [] Right Upper Extremity: 5/5 Left Upper Extremity: flaccid Right Lower Extremity: 5/5 Left Lower Extremity: hip 3+/5, knee 4/5, ankle 3+/5 Sensation: intact BUE and LE Bed Mobility/Transfers: [] Supine to sit independent Sit to stand independent Stand to sit independent Bed to chair independent with and without HW Gait: ambulated 200 feet with HW SBA reciprocal pattern, slight increased weight shift to right , equal step length and demonstrates adequate foot clearance. level surfaces including turns. Balance: Static Sitting: Normal Dynamic Sitting:Normal Static Standing: good + Dynamic Standing:Good Special Tests: Mobility Limitations Standardized Measure [facility] AM-PAC 6 clicks Basic Mobility Inpatient Short Form: Raw Score: 23 CMS Score: 11.20% Informed Consent/Education: Patient instructed in purpose of PT consult role of home PT. Assessment: Patient presents with clinical signs and symptoms consistent with current/admitting diagnoses that have resulted to mobility limitations, gait in stability, generalized weakness, and impairment of motor control as demonstrated by the following impairment level findings: 1. Impaired strength left upper extremity/hemiparesis 2. impaired functional activity tolerance 3. GUZMAN/ impaired pacing/breath control during functional tasks Impairments are contributing to the following functional limitations: 1. increased time to complete ADL/Mobility skills Patient demonstrates functional ability to return to home with home services. She would benefit from home PT to address pacing/breath control techniques to reduce dyspnea on exertion including during ADL performance. Patient is agreeable to home services Patient is assessed as a moderate complexity based on the following: History: 83 year-old female with impairment level findings, functional limitations, and past medical history as indicated above Examination: Demonstrable impairment in strength, balance, and mobility level with underlying impairments and functional limitations as documented above Presentation:evolving Decision Making: moderate Goals: N/A. Plan of Care/Treatment Plan: N/A. DISCHARGE RECOMMENDATIONS: PT TREATMENT CODE/TIME: 85140/[id number] Thank you for the opportunity to participate in the care of this patient. Lily Rendon, PT [facility] Please sign an return this page within 30 days if you agree with the above POC. Thank you! Physician [facility]
--- NOTE | 2024-06-04 14:40 | PDOC.HHF2F_ITS ---
Home Health Referral Home Health Orders Clinical synopsis of why skilled professionals are needed: This 83 years old female patient , leaving alone, with a past medical history of non-STEMI, COPD, pulmonary hypertension, left-sided hemiparesis status post CVA, HFpEF on furosemide, hypertension, presented to the ED on 06/01/2024 for evaluation of increased dyspnea with productive cough with increased sputum starting 7 days prior to presentation. On arrival to the house EMS found her saturation in oxygen to be in the 70'simprovig to the low 90's with O2 supplementayion . No fevers were reported but the patient was tachypneic with respiratory rate 24. The workup in the ED showed pneumonia chest x-ray without infiltrates, suggesting underlying COPD and hyperinflated lungs. CBC shows leukocytosis at 13.51,urine showed leukocyte esterase. The patient was admitted to the medical surgical floor for COPD exacerbation, possible sepsis, possible UTI and hypoxic respiratory failure. In the ED the patient received IV solumedrol, doxycycline for atypical pneumonia versus COPD exacerbation. During the stay ceftriaxone was added to the regimen and steroids and doxycycline transitioned to oral form.The patient had no further oxygen requirement. The patient will be discharged home on a short course of pr ednisone, doxycycline and cefpodoxime. An echocardiogram was completed resulting with findings of an LVEF of 51-54%, mild global hypokinesis of the left ventricle with an RVSP of 42 mmHg. The patient will resume her oral home dose of furosemide with further adjustment per PCP. Statin therapy dose was adjusted to the patient history of NSTEMI type 1 presentation on 03/2024.The patient was encouraged to stay hydrated with oral fluid intake.The patient will be discharge home with home health for physical therapy and nursing for medicine compliance in the setting of pharmacologic regimen modification and for the monitoring of symptoms exacerbation.Due to residual left- sided hemeparesis the from previous stroke the patient would benefit from occupational therapy evaluation and from a medical safety director for coordination of care. The patient will have to follow up with her PCP within 7 days of discharge and will need a cardiology referral as per discussion with primary care provider. Discussed with Dr. Hadley. Medical diagnosis necessitation home health referral: COPD exacerbation, Sepsis, left hemiparesis s/p CVA, Registered Nurse: Check all that apply Instruct on new or changed medication(s)/assess compliance: Ordered Assess for exacerbation of medical condition, instruct patient/caregivers on signs and symptoms to report for early detection: Ordered Physical Therapist: Check all that apply Increase strength & endurance for safe mobility at home: Ordered To design/establish home maintenance program: Ordered Fall reduction therapy program for patient with history of frequent falls: Ordered Home safety evaluation and teaching/gait training including stair management (if applicable): Ordered Better Breathing Program: Ordered Occupational Therapist: Evaluate and treat for patient unable to perform ADL/IADL/self-care: Ordered Upper extremity strengthening, range and motion: Ordered Press Cleaner: Assist with community resources: Ordered Assist with roasterman care planning: Ordered Home Bound Status Requires the aid of supportive device (check all that apply): Walker Patient has a condition such that leaving home is medically contraindicated (Describe): she has COPD and does not tolerate distance Describe why leaving home would require a considerable and taxing effort: Requires frequent rest periods Encounter Date and Reason: I certify that a FTF encounter for this patient was performed on June 04, 2024 and that such encounter was related to the primary reason the patient requires home health services. The encounter was conducted in the following manner: * By me as the certifying physician, GRADUATE ASSISTANT ATHLETIC TRAINER, PA or * By an inpatient physician, GRADUATE ASSISTANT ATHLETIC TRAINER or PA during an inpatient stay who communicated findings to me, Certification And Authentication I certify that I composed the above information based on my clinical judgment relating to this patient's medical condition and, if applicable, clinical findings communicated to me by the NPP or inpatient physician who performed the FTF encounter. Name of Provider that will be monitoring home health services: Samir Garcia
== END 2024-06-04 15:21 | disposition home health service (06) | DRG 193 ==
LOC: ER 18:04 → MS 22:20
PROVIDERS: Nurse Practitioner Family; Admitting Provider Family Medicine; Emergency Provider Physician Assistant; PCP Nurse Practitioner Family; Visit Provider Family Medicine
DX: J18.9 Pneumonia, unspecified organism (principal); J96.01 Acute respiratory failure with hypoxia; J44.1 Chronic obstructive pulmonary disease with (acute) exacerbation; E87.0 Hyperosmolality and hypernatremia; I50.30 Unspecified diastolic (congestive) heart failure; I69.354 Hemiplegia and hemiparesis following cerebral infarction affecting left non-dominant side; I13.0 Hypertensive heart and chronic kidney disease with heart failure and stage 1 through stage 4 chronic kidney disease, or unspecified chronic kidney disease; J44.0 Chronic obstructive pulmonary disease with (acute) lower respiratory infection; J20.9 Acute bronchitis, unspecified; E87.6 Hypokalemia; N18.32 Chronic kidney disease, stage 3b; I50.812 Chronic right heart failure; I27.20 Pulmonary hypertension, unspecified; I25.2 Old myocardial infarction; H90.3 Sensorineural hearing loss, bilateral; I87.2 Venous insufficiency (chronic) (peripheral); E78.5 Hyperlipidemia, unspecified; Z87.891 Personal history of nicotine dependence; D64.9 Anemia, unspecified; I73.9 Peripheral vascular disease, unspecified; Z95.828 Presence of other vascular implants and grafts; M54.50 Low back pain, unspecified; G89.29 Other chronic pain; K59.09 Other constipation; Z66 Do not resuscitate
CPT/HCPCS: 00123; 36415; 80053; 82805; 84145; 85027; 87040; 87077; 87637; 93005; 94640; 96365; 96367; 96375; 97162; 99291; 71046; 81003; 81015; 83605; 83735; 83880; 84484; 85025; 87070; 87086; 87205; 93010; 93306; 94667; 94668; 94760; 99223; 99231; 99238; J0696; J1650; J2919; J3490; J7512; J7614; J7620

== ENCOUNTER 2024-06-12 16:09 | Outpatient (REF) | payer MEDICARE, OTHER, SELFPAY ==
[2024-06-12 21:55] LABS: Anion Gap 6.9 mmol/L (3-11); BUN 29 mg/dL (7-18); CO2 34.1 mmol/L (21.0-32.0); CREATININE 1.5 mg/dL (0.55-1.02); Calcium 9.6 mg/dL (8.5-10.1); Chloride 103 mmol/L (98-107); Estimated GFR 34.79 (mL/min/1.73m2); Glucose 93 mg/dL (74-106); Potassium 3.2 mmol/L (3.5-5.1); Sodium 144 mmol/L (136-145)
== END 2024-06-12 16:10 | disposition home or self-care (01) ==
LOC: LBN 16:09
PROVIDERS: PCP Nurse Practitioner Family; Visit Provider Nurse Practitioner Family
DX: N18.32 Chronic kidney disease, stage 3b (principal)
CPT/HCPCS: 80048

== ENCOUNTER 2024-06-18 01:20 | Outpatient (CLI) | payer MEDICARE, OTHER, SELFPAY ==
--- NOTE | 2024-06-18 10:05 | DI.RAD_ITS ---
Exam(s) XR HAND LT COMPLETE EXAM: XR HAND LT COMPLETE CLINICAL HISTORY: fall 03/27, continued pain and LROM,m79.642. TECHNIQUE: 2D digital imaging was performed of the left hand. Three views were obtained. AP, later al and oblique views were obtained. COMPARISON: No exams were available for comparison FINDINGS: BONES: No evidence of an acute or healing fracture. No bony destructive lesion is seen. The bones ar e osteopenic. JOINTS: No dislocation present. There are moderate degenerative changes seen in the hand particularly at the 1st CMC joint. SOFT TISSUE: Normal. IMPRESSION: No evidence of an acute or healing fracture or dislocation. DATA REPOSITORY: RADIATION DOSE DELIVERED:
== END 2024-06-18 01:40 ==
LOC: DI 01:20
PROVIDERS: PCP Nurse Practitioner Family; Visit Provider Nurse Practitioner Family
DX: M79.642 Pain in left hand (principal)
CPT/HCPCS: 73130

== ENCOUNTER 2024-06-20 12:53 | Outpatient (REF) | payer MEDICARE, OTHER, SELFPAY ==
[2024-06-20 22:09] LABS: Anion Gap 9.1 mmol/L (3-11); BUN 21 mg/dL (7-18); CO2 27.9 mmol/L (21.0-32.0); CREATININE 1.4 mg/dL (0.55-1.02); Calcium 9.1 mg/dL (8.5-10.1); Calculated LDL 72 mg/dL (<100); Chloride 107 mmol/L (98-107); Cholesterol 183 mg/dL (<200); Glucose 96 mg/dL (74-106); HDL Cholesterol 85 mg/dL (40-60); Potassium 3.7 mmol/L (3.5-5.1); Sodium 144 mmol/L (136-145); Triglyceride 131 mg/dL (<150)
== END 2024-06-20 12:54 | disposition home or self-care (01) ==
LOC: LBN 12:53
PROVIDERS: PCP Nurse Practitioner Family; Visit Provider Nurse Practitioner Family
DX: N18.32 Chronic kidney disease, stage 3b (principal); E78.2 Mixed hyperlipidemia; D64.9 Anemia, unspecified
CPT/HCPCS: 80048; 80061

== ENCOUNTER → 2024-07-12 11:14 | Outpatient (BNVA) | payer MEDICARE, OTHER, SELFPAY | PROVIDERS: PCP Nurse Practitioner Family; Referring Provider Nurse Practitioner Family; Visit Provider Physician Assistant Surgical | DX: J41.0 Simple chronic bronchitis (principal); I27.20 Pulmonary hypertension, unspecified; R91.8 Other nonspecific abnormal finding of lung field; Z87.891 Personal history of nicotine dependence | CPT/HCPCS: 99214 ==

== ENCOUNTER 2024-08-22 17:58 | Emergency (ER) | payer MEDICARE, OTHER, SELFPAY ==
[2024-08-22] VITALS (50 sets, daily range): BP systolic 102–221; BP diastolic 42–200; PULSE 40–133; RESP 2–38; TEMP 36.8; O2SAT 72–98
--- NOTE | 2024-08-22 17:45 | RT.EKG_ITS ---
APPROVED REPORT Exam: Resting ECG Reason for Exam: sob, low sats Patient Location: E HR:105 bpm ECG Measurements Heart Rate 105 AXIS NC 137 P 85 QRSd 83 QRS 258 QT 358 T 71 QTc 468 Conclusion Sinus tachycardia...rate> 99 LAD, consider left anterior fascicular block...axis(240,-40), S>R II III aVF No STEMI
--- NOTE | 2024-08-22 17:49 | W.ED.GENAD ---
Discharge Plan Disposition Patient Disposition: Transfer-Acute Inpatient Care Specific Acute Inpt Facility: Other Discharge Details Clinical Impression: Acute hypoxemic respiratory failure, Acute non-ST elevation myocardial infarction (NSTEMI), Influenza A Primary Care Provider: Samir Casillas ED Provider: Jerrod Darden Home Meds and New Rx's Prescriptions: No Action Centrum Silver Women 8 mg iron-400 mcg-300 mcg tablet 1 tab PO DAILY ferrous sulfate 325 mg (65 mg iron) tablet 325 mg PO DAILY mometasone 0.1 % cream 1 applic topical BID PRN (Reason: rash) Qty: 45 0RF Rx Instructions: apply to affected area Colace Clear 50 mg capsule 100 mg PO TID PRN (Reason: constipation) Qty: 540 4RF ketoconazole 2 % cream 1 applic topical DAILY Qty: 120 6RF Rx Instructions: Apply to toenails once daily fluticasone propion-salmeterol [Advair HFA] 230-21 mcg/actuation HFA aerosol inhaler 2 puff inhalation BID Qty: 12 12RF Incruse Ellipta 62.5 mcg/actuation blister with device 1 inh inhalation DAILY Qty: 30 12RF azithromycin 250 mg tablet 250 mg PO .COMPLEX Qty: 90 4RF Rx Instructions: 250 mg orally; ipratropium-albuterol 0.5 mg-3 mg(2.5 mg base)/3 mL solution for nebulization 3 ml inhalation Q4H PRN (Reason: wheezing) Qty: 540 8RF pantoprazole 40 mg tablet,delayed release (DR/EC) 40 mg PO DAILY@0730 Qty: 90 3RF sertraline 100 mg tablet 100 mg PO DAILY Qty: 90 3RF furosemide 20 mg tablet 40 mg PO DAILY Qty: 180 1RF Patient Comments: Ran out. Trying to get new prescription. potassium chloride 20 mEq tablet extended release 20 meq PO DAILY Qty: 90 3RF atorvastatin [Lipitor] 40 mg tablet 40 mg PO QPM Qty: 90 4RF Inhaler, Assist Devices [Pocket Chamber] 1 ea miscellaneous DIRECTED Qty: 0 0RF ipratropium bromide 0.02 % solution 2.5 ml inhalation Q6H PRNQty: 62.5 0RF levalbuterol HCl 1.25 mg/3 mL solution for nebulization 1.25 mg inhalation Q6H PRNQty: 72 0RF Rx Instructions: Reordered from discharge as this was not filled , in combination with ipratropium [facility] General Date/Time Provider Initiated Documentation: 08/22/24 18:09. HPI Narrative: MDM This is a hypoxic normothermic and not tachycardic 83-year-old flu positive female with high risk NSTEMI for which she will receive tertiary care transfer to [place]. I spoke with the transfer center and received the accepting name of Dr. Gasca. Patient was having chest pain but this resolved. She received 324 mg aspirin prehospital 300 mg clopidogrel and is on a heparin drip. She has been sick for the past week and swab positive for the flu. I treated her with oseltamavir. She has no infiltrate on her chest x-ray. She does not appear volume overloaded. I did send a D-dimer that was concerned about the possibility of PE with her hypoxia. This returned markedly positive however given her CKD and her GFR of 30 I did not send her for a CT angiogram to assess for PE as a treating with heparin and felt that the risk of worsening renal function prior to possibility of left heart cath outweighed the benefits of the CT angiogram. She received albuterol and steroids. I considered sepsis however patient was not hypotensive nor febrile given flu positive status I did not treat her with broad-spectrum antibiotics nor draw blood cultures. I attempted to transfer the patient to [facility] but they were at capacity. [facility] was not accepting patients urgently. I spoke with Dr. Jalloh from cardiology at [facility] who agreed with heparin clopidogrel and tertiary care transfer. Unfortunately, the transfer center was unable to list the patient in the next 24 to 48 hours so I felt that the benefits of further transport outweigh the risks. I also attempted to transfer the patient to [facility] but they were also capacity. Patient is a DNI DNR. Patient's brother became upset as I had treated the patient with heparinization. He reported that she had prior history of intestinal bleeding from blood thinners and he was adamant about not wanting her to receive a blood thinner. Patient is alert and oriented. With the patient's brother in the room I counseled her on the risks and the benefits of treatment with blood thinners. I advised her that the risks of withholding blood thinner would be further damage to her heart as I was concerned about her ECG changes in her dynamic NSTEMI. We also discussed the risks of bleeding with blood thinners. She felt comfortable with heparin. Patient's brother and also expressed difficulty getting the patient back from [place]. I advised that I was sorry about the distance with which I had to transfer the patient but given her acute presentation and the lack of locally available beds I felt that the benefits of transfer outweighed the risks. Patient consented for transfer. She was transferred with a sample cutter. Patient was transiently on BiPAP but she was weaned off. I asked health community affairs manager Josephine to update the [place] transfer center. She was accepted to the ED in [place]. She will likely benefit from left heart catheterization to discern between acute plaque rupture versus demand ischemia in the setting of her influenza. Will empirically treat for type I NSTEMI given high risk features of ECG changes and risk factors she also benefit from updated TTE. No tearing quality to suggest aortic dissection. No trauma and equal breath sounds without pneumothorax. No rash to chest to suggest zoster. Not hypotensive nor dialysis patient so my suspicion is low for tamponade. HPI This is a 83-year-old DNI DNR female history of hypertension hyperlipidemia prior CVA pulmonary hypertension COPD moderate AAS arrived to the emergency department via EMS in the setting of sickness in the past week shortness of breath and chest pain. Patient reports she is not on any home oxygen. She received aspirin prehospital. Her chest discomfort has resolved. Her room air saturation was 84%. She denies any falls. No rash to chest. No history of dialysis. Exam General: Elderly-appearing in mild respiratory distress. Head: Normocephalic, atraumatic. Eye: Extraocular eye movements intact. No conjunctival injection. No scleral icterus. Ear, nose, mouth, throat: Grossly normal inspection. Normal voice, handling secretions normally. Neck: Trachea midline. Cardiovascular: Well-perfused distal extremities. Regular rate and rhythm Respiratory: Nonlabored respiration. Decreased respirations bilateral bases. Gastrointestinal: Nondistended abdomen. Musculoskeletal: No significant lower extremity pitting edema. Moving all 4 extremities spontaneously. Skin: Normal for age and race, grossly normal temperature and turgor. No acute rash. Neurologic: Alert and appropriate, no apparent acute deficits. GCS 15. Related Data Home Medications ?Medication ?Instructions ?Recorded ?Confirmed nlhigrcd-gxbo-bovo 8 mg-folic 400 1 tab PO DAILY 07/18/20 08/22/24 mcg-K 50 mcg-lutein 300 mcg tablet ([facility]) Inhaler, Assist Devices [Pocket 1 ea miscellaneous DIRECTED ##0 10/13/22 08/22/24 Chamber] ipratropium 0.5 mg-albuterol 3 mg 3 ml inhalation Q4H PRN wheezing 01/07/23 08/22/24 (2.5 mg base)/3 mL nebulization #540 mL soln ferrous sulfate 325 mg (65 mg 325 mg PO DAILY 04/04/23 08/22/24 iron) tablet mometasone 0.1 % topical cream 1 applic topical BID PRN rash #45 04/04/23 08/22/24 grams docusate sodium 50 mg capsule 100 mg (2 x 50 mg) PO TID PRN 05/17/23 08/22/24 (Colace Clear) constipation #540 caps ketoconazole 2 % topical cream 1 applic topical DAILY #120 grams 10/20/23 08/22/24 pantoprazole 40 mg tablet,delayed 40 mg PO DAILY@0730 #90 tabs 12/29/23 08/22/24 release sertraline 100 mg tablet 100 mg PO DAILY #90 tabs 01/17/24 08/22/24 furosemide 20 mg tablet 40 mg (2 x 20 mg) PO DAILY weight 06/01/24 08/22/24 gain #180 tabs ipratropium bromide 0.02 % 2.5 ml inhalation Q6H PRN #62.5 mL 06/06/24 08/22/24 solution for inhalation levalbuterol HCl 1.25 mg/3 mL 1.25 mg (3 mL) inhalation Q6H PRN 06/06/24 08/22/24 solution for nebulization #72 mL potassium chloride 20 mEq 20 meq PO DAILY #90 tabs 06/13/24 08/22/24 tablet,extended release azithromycin 250 mg tablet 250 mg PO .COMPLEX for COPD #90 07/12/24 08/22/24 tabs fluticasone propionate 230 2 puff inhalation BID #12 grams 07/12/24 08/22/24 mcg-salmeterol 21 mcg/actuation HFA inhaler (Advair HFA) umeclidinium 62.5 mcg/actuation 1 inh inhalation DAILY #30 ea 07/12/24 08/22/24 blister powder for inhalation (Incruse Ellipta) atorvastatin 40 mg tablet (Lipitor) 40 mg PO QPM #90 tabs 08/07/24 08/22/24 Previous Rx's ?Medication ?Instructions ?Recorded Inhaler, Assist Devices [Pocket 1 ea miscellaneous DIRECTED ##0 10/13/22 Chamber] ipratropium 0.5 mg-albuterol 3 mg 3 ml inhalation Q4H PRN wheezing 01/07/23 (2.5 mg base)/3 mL nebulization #540 mL soln mometasone 0.1 % topical cream 1 applic topical BID PRN rash #45 04/04/23 grams docusate sodium 50 mg capsule 100 mg (2 x 50 mg) PO TID PRN 05/17/23 (Colace Clear) constipation #540 caps ketoconazole 2 % topical cream 1 applic topical DAILY #120 grams 10/20/23 pantoprazole 40 mg tablet,delayed 40 mg PO DAILY@0730 #90 tabs 12/29/23 release sertraline 100 mg tablet 100 mg PO DAILY #90 tabs 01/17/24 furosemide 20 mg tablet 40 mg (2 x 20 mg) PO DAILY weight 06/01/24 gain #180 tabs ipratropium bromide 0.02 % 2.5 ml inhalation Q6H PRN #62.5 mL 06/06/24 solution for inhalation levalbuterol HCl 1.25 mg/3 mL 1.25 mg (3 mL) inhalation Q6H PRN 06/06/24 solution for nebulization #72 mL potassium chloride 20 mEq 20 meq PO DAILY #90 tabs 06/13/24 tablet,extended release azithromycin 250 mg tablet 250 mg PO .COMPLEX for COPD #90 07/12/24 tabs fluticasone propionate 230 2 puff inhalation BID #12 grams 07/12/24 mcg-salmeterol 21 mcg/actuation HFA inhaler (Advair HFA) umeclidinium 62.5 mcg/actuation 1 inh inhalation DAILY #30 ea 07/12/24 blister powder for inhalation (Incruse Ellipta) atorvastatin 40 mg tablet (Lipitor) 40 mg PO QPM #90 tabs 08/07/24 Allergies Allergy/AdvReac Type Severity Reaction Status Date / Time baclofen AdvReac Intermediate mental Verified 08/22/24 18:11 status changes General IFTIKHAR: 3 Medical Decision Making Quality:SDOH Health Related Social Needs: Health related social needs details n/a Critical Care Time Critical Care Time Critical Care Time: Yes Total Critical Care Time: 60 Attestation: High risk likely type I NSTEMI PFSH All Active Problems (Updated 08/22/24 @ 22:34 by Jerrod Darden MD) Influenza A (Acute) Acute non-ST elevation myocardial infarction (NSTEMI) (Acute) Acute hypoxemic respiratory failure (Acute) ACP (advance care planning) (Acute) CKD (chronic kidney disease) (Chronic) Bilateral sensorineural hearing loss (Acute) Chest congestion (Acute) Fatigue (Acute) Venous insufficiency (Acute) Atherosclerosis of artery of both lower extremities (Acute) Onychomycosis (Acute) Pain in joint, foot, left (Acute) Pain in right foot (Acute) Knee pain, right (Acute) Trochanteric bursitis of left hip (Acute) Toe pain, left (Acute) Toe pain, right (Acute) Essential hypertension (Chronic 03/30/13) Hyperlipidemia (Acute) Former cigarette smoker (Acute) Pleural effusion (Acute) Anemia (Chronic) Pulmonary nodules/lesions, multiple (Acute) Pulmonary hypertension (Acute) Left hemiparesis (Acute) 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 Due repeat MRI in 10/2022. Counseling regarding advanced directives and goals of care (Acute) CVA (cerebral vascular accident) (Chronic) Neuro est. between 04/2020-11/2021 Grief reaction (Chronic) Spouse 08/13/21 passed Carotid stenosis, left (Acute) 50-69% stenosis 04/2022; complete obstruction right internal carotid. Shoulder arthralgia (Chronic) Polyp of colon (Acute) tubular adenoma Peripheral vascular disease (Acute) Jul 2014 [facility] [place] aorto bifem bypass LEFT ILIAC STENT [facility] [place] 03/2010 Lumbago (Chronic 05/10/13) Constipation (Chronic 11/14/17) Medical History Pneumonia Hypernatremia Left hip pain POCUS 09/26/23 Left upper quadrant abdominal pain Chronic obstructive lung disease PFT'S 2009 FEV 1.15=59% continues to smoke Congestive heart failure Productive cough Pleural effusion Ischemic cerebrovascular accident (CVA) due to atherosclerosis of large extracranial artery Perichondritis Disorder of ear, left Hand pain, left Anxiety about health Seizures Smoker (10/19/16) Diverticulitis of colon H/O SIGMOID COLECTOMY Surgical History S/P partial colectomy WRIST/THUMB SURGERY LEFT THUMB LEFT WRIST RIGHT THUMB Ligation of fallopian tube Trigger Finger release Rotator Cuff Repair RIGHT Extraction of cataract B/L 04/2013 Family History Mother Diabetes Essential hypertension Stroke Father , 55 Heart disease Stroke Brother , 71 Complications from surgery No problems noted. Son No problems noted. Son No problems noted. Daughter No problems noted. Daughter No problems noted. Social History (Updated 06/21/24 @ 11:13 by Clarissa Gregory) Smoking/Tobacco Use Status: Former Tobacco Use tobacco type: cigarettes Quit Date: 09/18/23 Tobacco: How many years used: 63 Quit status: has quit before Second Hand Exposure: Yes Smoking risk assessment performed?: Yes Alcohol Intake: never Drug use: Current Sobriety Substance use type: does not use Counseling given: No Counseling provided: none Caregiver/Support person: Yes Details: Son checks on me 2x a day Household members: none Housing: house Number of Children: 4 number of grandchildren: 4 Communication Needs: Hard of Hearing and Blind Education Level: college Details: some Do you need help understanding health information?: Rarely 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 Pets and animals: Yes Pets and animals: dog(s) Sexually active: No Do you think of yourself as: straight/heterosexual Current gender identity: female What is your relationship status?: How often do you talk on the phone with friends or family?: twice per week How often do you get together with friends or relatives?: three or more times per week How often do you attend sabianist or jain services?: decline to answer Do you belong to any clubs or organized social groups?: no Panel score (0-1 are the most socially isolated patients): 1 What type of physical activity do you participate in: other Details: PT and OT exercises Duration: < 15 minutes/day Frequency: 3-4 times per week Darlene/Evangelical: Non mandaeism Special darlene needs: No Seatbelt use: always Helmet use: No (never) Drive intox or ride w/intox front end driver: No (never) Firearms in home: No Do you feel safe at home: Yes Do you feel safe in your relationship?: Yes Victim of physical abuse: No Victim of emotional abuse: No Victim of sexual abuse: No Additional Social history: Pt smoked for 60yrs quit aug 2022.
--- NOTE | 2024-08-22 18:00 | DI.RAD_ITS ---
Exam(s) XR PORTABLE CHEST AP EXAM: XR PORTABLE CHEST AP CLINICAL HISTORY: Noninvasive. TECHNIQUE: 2D digital imaging was performed. COMPARISON: CR,XR XR CHEST 2V PA LATERAL from 06/01/2024 FINDINGS: Single AP portable view. Heart size is upper normal. The mediastinum is not widened. Lungs are clear. No infiltrates nor obvious pleural effusions. IMPRESSION: No acute pulmonary findings on this single AP portable view of the chest. DATA REPOSITORY: RADIATION DOSE DELIVERED:
[2024-08-22] MEDS: Dexamethasone 10 MG/ML VIAL IVP (18:31)
[2024-08-22 18:39] LABS: Abs Immature Grans 0.06 10^3/uL (0.0-0.06); Absolute Basophil Count 0.03 10^3/uL (0.0-0.2); Absolute Eosinophil Count 0.01 10^3/uL (0.0-0.7); Absolute Lymphocyte Count 0.99 10^3/uL (1.2-3.4); Absolute Monocyte Count 0.88 10^3/uL (0.1-0.8); Basophils % 0.3 %; Eosinophils % 0.1 %; HCT 43.6 % (36.0-46.0); HGB 13.8 g/dL (11.2-15.7); Immature Grans % 0.5 %; Lymphocytes % 8.7 %; MCH 29.6 pg (27.0-33.0); MCHC 31.7 % (32.0-36.0); MCV 93 fL (80-95); MPV 10.1 fL (8.0-11.0); Monocytes % 7.7 %; Neutrophils % 82.7 %; Platelet Count 140 10^3/uL (130-400); RBC 4.67 10^6/uL (3.93-5.22); RDW 14.9 % (11.7-14.6); RDW-SD 51.8 fL; WBC 11.43 10^3/uL (4.4-10.8)
[2024-08-22] MEDS: Albuterol/Ipratropium 3 ML UPD VIAL UPD (18:39)
[2024-08-22 18:40] LABS: Absolute Neutrophil Count 9.45 10^3/uL (1.2-6.7)
[2024-08-22 18:58] LABS: Anion Gap 11.2 mmol/L (3-11); BUN 30 mg/dL (7-18); CO2 28.8 mmol/L (21.0-32.0); CREATININE 1.7 mg/dL (0.55-1.02); Calcium 9.6 mg/dL (8.5-10.1); Chloride 102 mmol/L (98-107); Estimated GFR 29.94 (mL/min/1.73m2); Glucose 146 mg/dL (74-106); Potassium 3.2 mmol/L (3.5-5.1); Sodium 142 mmol/L (136-145)
[2024-08-22 18:59] LABS: Troponin I 1027 ng/L (<or=51)
[2024-08-22 19:11] LABS: D-Dimer 3164 ng/mlFEU (<500)
--- NOTE | 2024-08-22 19:30 | RT.EKG_ITS ---
APPROVED REPORT Exam: Resting ECG Reason for Exam: Chest pain Patient Location: E HR:103 bpm ECG Measurements Heart Rate [address] 135 P 79 QRSd 87 QRS -56 QT 336 T 75 QTc 441 Conclusion Sinus tachycardia...rate> 99 Multiform ventricular premature complexes...short R-R, variable morphology LAD, consider left anterior fascicular block...axis(240,-40), S>R II III aVF Anterior infarct, old...Q >40mS, abnormal ST-T, V2-V5 Nonspecific T abnormalities, lateral leads...T <-0.10mV, I aVL V5 V6 No STEMI
[2024-08-22] MEDS: Oseltamivir 75 MG CAP PO (19:46)
[2024-08-22] MEDS: Heparin in 0.45% NaCl 25,000 UNIT/250 ML BAG 7.5 UNIT IVINF (19:46)
[2024-08-22 19:57] LABS: Troponin I 2148 ng/L (<or=51)
[2024-08-22] MEDS: Clopidogrel 300 MG TAB PO (21:13)
--- NOTE | 2024-08-22 21:34 | NUR.NOTE ---
Spoke with Daughter, explained the plan of care and use of heparin in her course of care. Daughter understood and remained on board with plan of care, all questions were answered to the best of this quality analyst/technical writer's ability. daughter will be updated with further developments as soon as changes occur.
[2024-08-22 22:07] LABS: Troponin I 2702 ng/L (<or=51)
--- NOTE | 2024-08-23 07:05 | NUR.NOTE ---
Nursing Note: received call from Daughter Alexia Tomlinson looking for an update. Daughter was updated that this Patient was transferred to [facility] last evening.
== END 2024-08-22 22:41 | disposition short-term general hospital (02) ==
PROVIDERS: Emergency Provider Emergency Medicine; PCP Nurse Practitioner Family
DX: J10.1 Influenza due to other identified influenza virus with other respiratory manifestations (principal); J96.01 Acute respiratory failure with hypoxia; I21.4 Non-ST elevation (NSTEMI) myocardial infarction; I10 Essential (primary) hypertension; E78.5 Hyperlipidemia, unspecified; J44.9 Chronic obstructive pulmonary disease, unspecified; Z86.73 Personal history of transient ischemic attack (TIA), and cerebral infarction without residual deficits; Z79.899 Other long term (current) drug therapy
CPT/HCPCS: 80048; 87426; 93005; 94640; 96374; 99285; 71045; 84484; 85025; 85379; 93010; J1100; J1644; J7620

== ENCOUNTER 2024-10-08 15:46 | Outpatient (REF) | payer MEDICARE, OTHER, SELFPAY ==
[2024-10-08 21:26] LABS: Abs Immature Grans 0.05 10^3/uL (0.0-0.06); Absolute Basophil Count 0.04 10^3/uL (0.0-0.2); Absolute Eosinophil Count 0.06 10^3/uL (0.0-0.7); Absolute Lymphocyte Count 1.46 10^3/uL (1.2-3.4); Absolute Monocyte Count 0.86 10^3/uL (0.1-0.8); Absolute Neutrophil Count 9.63 10^3/uL (1.2-6.7); Basophils % 0.3 %; Eosinophils % 0.5 %; HGB 10.5 g/dL (11.2-15.7); Immature Grans % 0.4 %; Lymphocytes % 12.1 %; MCH 30.5 pg (27.0-33.0); MCV 102 fL (80-95); MPV 10.4 fL (8.0-11.0); Monocytes % 7.1 %; Neutrophils % 79.6 %; Platelet Count 220 10^3/uL (130-400); RBC 3.44 10^6/uL (3.93-5.22); RDW-SD 62.9 fL
[2024-10-08 21:50] LABS: ALT 55 U/L (14-59); AST 47 U/L (15-37); Alkaline Phosphatase 84 U/L (46-116); Anion Gap 9.9 mmol/L (3-11); BUN 17 mg/dL (7-18); Bilirubin, Total 0.6 mg/dL (0.2-1.0); CO2 29.1 mmol/L (21.0-32.0); Calcium 9.8 mg/dL (8.5-10.1); Chloride 110 mmol/L (98-107); Glucose 89 mg/dL (74-106); Potassium 3.4 mmol/L (3.5-5.1); Sodium 149 mmol/L (136-145)
== END 2024-10-08 15:47 | disposition home or self-care (01) ==
LOC: LBN 15:46
PROVIDERS: PCP Nurse Practitioner Family; Visit Provider Nurse Practitioner Family
DX: R44.3 Hallucinations, unspecified (principal)
CPT/HCPCS: 80053; 85025

== ENCOUNTER → 2024-10-22 14:40 | Outpatient (BNVA) | payer MEDICARE, OTHER, SELFPAY | PROVIDERS: PCP Nurse Practitioner Family; Referring Provider Nurse Practitioner Family; Visit Provider Podiatrist | DX: M79.674 Pain in right toe(s) (principal); L60.3 Nail dystrophy; B35.1 Tinea unguium; I70.203 Unspecified atherosclerosis of native arteries of extremities, bilateral legs; D64.9 Anemia, unspecified; I87.2 Venous insufficiency (chronic) (peripheral); M79.675 Pain in left toe(s); R09.89 Other specified symptoms and signs involving the circulatory and respiratory systems; L65.9 Nonscarring hair loss, unspecified; R20.8 Other disturbances of skin sensation; R23.8 Other skin changes; L60.8 Other nail disorders; I83.93 Asymptomatic varicose veins of bilateral lower extremities; L53.8 Other specified erythematous conditions; L60.2 Onychogryphosis | CPT/HCPCS: 11721 ==

== ENCOUNTER → 2025-01-08 10:18 | Outpatient (BNVA) | payer MEDICARE, OTHER, SELFPAY | PROVIDERS: PCP Nurse Practitioner Family; Referring Provider Nurse Practitioner Family; Visit Provider Physician Assistant Surgical | DX: J41.0 Simple chronic bronchitis (principal); I27.20 Pulmonary hypertension, unspecified; R91.8 Other nonspecific abnormal finding of lung field; Z87.891 Personal history of nicotine dependence | CPT/HCPCS: 99214 ==

== ENCOUNTER 2025-02-11 18:36 | Emergency (ER) | payer MEDICARE, OTHER, SELFPAY ==
[2025-02-11 18:46] VITALS: BP 136/57; PULSE 80; RESP 18; TEMP 36.6; O2SAT 93
[2025-02-11 18:54] VITALS: BP 136/57; PULSE 80; RESP 18; TEMP 36.6; O2SAT 93
--- NOTE | 2025-02-11 22:43 | ED.GENADUL_ITS ---
Discharge Plan Disposition Patient Disposition: Home Discharge Details Clinical Impression: Foreign body in ear, unspecified ear, initial encounter Primary Care Provider: Samir Casillas ED Provider: Cheyanne Hyatt Home Meds and New Rx's Prescriptions: No Action acetaminophen 500 mg tablet 500 mg PO Q6H PRN (Reason: fever) Qty: 90 0RF Rx Instructions: pill pack aspirin [Adult Aspirin Regimen] 81 mg tablet,delayed release (DR/EC) 81 mg PO DAILY Qty: 90 4RF Rx Instructions: post NSTEMI pill pack atorvastatin [Lipitor] 40 mg tablet 40 mg PO QPM Qty: 90 4RF Rx Instructions: pill pack azithromycin 250 mg tablet 250 mg PO .COMPLEX Qty: 90 4RF Rx Instructions: 250 mg orally; pill pack clopidogrel 75 mg tablet 75 mg PO DAILY Qty: 90 4RF Rx Instructions: pill pack Colace Clear 50 mg capsule 100 mg PO TID PRN (Reason: constipation) Qty: 540 4RF fluticasone propion-salmeterol [Advair HFA] 230-21 mcg/actuation HFA aerosol inhaler 2 puff inhalation BID Qty: 12 12RF furosemide 20 mg tablet 40 mg PO DAILY Qty: 180 1RF Patient Comments: Ran out. Trying to get new prescription. Rx Instructions: pill pack pantoprazole 40 mg tablet,delayed release (DR/EC) 40 mg PO DAILY@0730 Qty: 90 3RF Rx Instructions: pill pack potassium chloride 20 mEq tablet extended release 20 meq PO DAILY Qty: 90 3RF Rx Instructions: pill pack sertraline 100 mg tablet 100 mg PO DAILY Qty: 90 3RF Rx Instructions: pill pack Incruse Ellipta 62.5 mcg/actuation blister with device 1 inh inhalation DAILY Qty: 30 12RF Centrum Silver Women 8 mg iron-400 mcg-300 mcg tablet 1 tab PO DAILY ferrous sulfate 325 mg (65 mg iron) tablet 325 mg PO DAILY mometasone 0.1 % cream 1 applic topical BID PRN (Reason: rash) Qty: 45 0RF Rx Instructions: apply to affected area ketoconazole 2 % cream 1 applic topical DAILY Qty: 120 6RF Rx Instructions: Apply to toenails once daily ipratropium-albuterol 0.5 mg-3 mg(2.5 mg base)/3 mL solution for nebulization 3 ml inhalation Q4H PRN (Reason: wheezing) Qty: 540 8RF Inhaler, Assist Devices [Pocket Chamber] 1 ea miscellaneous DIRECTED Qty: 0 0RF ipratropium bromide 0.02 % solution 2.5 ml inhalation Q6H PRNQty: 62.5 0RF levalbuterol HCl 1.25 mg/3 mL solution for nebulization 1.25 mg inhalation Q6H PRNQty: 72 0RF Rx Instructions: Reordered from discharge as this was not filled , in combination with ipratropium Discharge Data Discharge Date/Time-TO BE ENTERED AT DEPARTURE: 02/11/25 19:22 HPI General Date/Time Provider Initiated Documentation: 02/11/25 18:55 . HPI Narrative: This 84-year-old female presents with report of concern for hearing aid stuck in ear. States that the wire came out of the hearing and trying to remove it from her ear. Related Data Home Medications ?Medication ?Instructions ?Recorded ?Confirmed [id number]-pqpo-[id number] 8 mg-folic 400 1 tab PO DAILY 07/1801/08/25 mcg-K 50 mcg-lutein 300 mcg tablet (Centrum Silver Women) Inhaler, Assist Devices [Pocket 1 ea miscellaneous DIRECTED ##0 10/13/22 01/08/25 Chamber] ipratropium 0.5 mg-albuterol 3 mg 3 ml inhalation Q4H PRN wheezing 01/07/23 01/08/25 (2.5 mg base)/3 mL nebulization #540 mL soln Held on 06/04/24. Instructions: Resume on 06/12/24. Changed to Xopenex and ipratropium ferrous sulfate 325 mg (65 mg 325 mg PO DAILY 04/04/23 01/08/25 iron) tablet mometasone 0.1 % topical cream 1 applic topical BID CO N rash #45 04/04/23 01/08/25 grams ketoconazole 2 % topical cream 1 applic topical DAILY #120 grams 10/20/23 01/08/25 ipratropium bromide 0.02 % 2.5 ml inhalation Q6H PRN # 62.5 mL 06/06/24 01/08/25 solution for inhalation levalbuterol HCl 1.25 mg/3 mL 1.25 mg (3 mL) inhalatio n Q6H PRN 06/06/24 01/08/25 solution for nebulization #72 mL acetaminophen 500 mg tablet 500 mg PO Q6H PRN fever #9 0 tabs 10/08/24 01/08/25 aspirin 81 mg tablet,delayed 81 mg PO DAILY #90 tabs 0 10/08/24 01/08/25 release (Adult Aspirin Regimen) atorvastatin 40 mg tablet (Lipitor) 40 mg PO QPM #90 t abs 10/08/24 01/08/25 azithromycin 250 mg tablet 250 mg PO .COMPLEX for COPD #90 10/08/24 01/08/25 tabs clopidogrel 75 mg tablet 75 mg PO DAILY #90 tabs 04/0 01/2501/08/25 docusate sodium 50 mg capsule 100 mg (2 x 50 mg) PO TI D PRN 10/08/24 01/08/25 (Colace Clear) constipation #540 caps fluticasone propionate 230 2 puff inhalation BID #12 g sherwin 10/08/24 12/12/24 mcg-salmeterol 21 mcg/actuation HFA inhaler (Advair HFA) furosemide 20 mg tablet 40 mg (2 x 20 mg) PO DAILY w eight 10/08/24 01/08/25 gain #180 tabs pantoprazole 40 mg tablet,delayed 40 mg PO DAILY@0730 #90 tabs 10/08/24 01/08/25 release potassium chloride 20 mEq 20 meq PO DAILY #90 tabs 01/2501/08/25 tablet,extended release sertraline 100 mg tablet 100 mg PO DAILY #90 tabs 01/2501/08/25 umeclidinium 62.5 mcg/actuation 1 inh inhalation DAILY #30 ea 10/08/24 01/08/25 blister powder for inhalation (Incruse Ellipta) Previous Rx's ?Medication ?Instructions ?Recorded Inhaler, Assist Devices [Pocket 1 ea miscellaneous DIRECTED ##0 10/13/22 Chamber] ipratropium 0.5 mg-albuterol 3 mg 3 ml inhalation Q4H PRN wheezing 01/07/23 (2.5 mg base)/3 mL nebulization #540 mL soln Held on 06/04/24. Instructions: Resume on 06/12/24. Changed to Xopenex and ipratropium mometasone 0.1 % topical cream 1 applic topical BID CO N rash #45 04/04/23 grams ketoconazole 2 % topical cream 1 applic topical DAILY #120 grams 10/20/23 ipratropium bromide 0.02 % 2.5 ml inhalation Q6H PRN # 62.5 mL 06/06/24 solution for inhalation levalbuterol HCl 1.25 mg/3 mL 1.25 mg (3 mL) inhalatio n Q6H PRN 06/06/24 solution for nebulization #72 mL acetaminophen 500 mg tablet 500 mg PO Q6H PRN fever #9 0 tabs 10/08/24 aspirin 81 mg tablet,delayed 81 mg PO DAILY #90 tabs 0 10/08/24 release (Adult Aspirin Regimen) atorvastatin 40 mg tablet (Lipitor) 40 mg PO QPM #90 t abs 10/08/24 azithromycin 250 mg tablet 250 mg PO .COMPLEX for COPD #90 10/08/24 tabs clopidogrel 75 mg tablet 75 mg PO DAILY #90 tabs 01/25 docusate sodium 50 mg capsule 100 mg (2 x 50 mg) PO TI D PRN 10/08/24 (Colace Clear) constipation #540 caps fluticasone propionate 230 2 puff inhalation BID #12 g sherwin 10/08/24 mcg-salmeterol 21 mcg/actuation HFA inhaler (Advair HFA) furosemide 20 mg tablet 40 mg (2 x 20 mg) PO DAILY w eight 10/08/24 gain #180 tabs pantoprazole 40 mg tablet,delayed 40 mg PO DAILY@0730 #90 tabs 10/08/24 release potassium chloride 20 mEq 20 meq PO DAILY #90 tabs 01/25 tablet,extended release sertraline 100 mg tablet 100 mg PO DAILY #90 tabs 01/25 umeclidinium 62.5 mcg/actuation 1 inh inhalation DAILY #30 ea 10/08/24 blister powder for inhalation (Incruse Ellipta) Allergies Allergy/AdvReac Type Severity Reaction Status Date / Time baclofen AdvReac Intermediate mental Verified 02/11/25 18:52 status changes General Stated Complaint: EarProblem IFTIKHAR: 4 Exam Narrative Exam Narrative: External auditory canal without any foreign body visualized no cerumen complete visualization of tympanic membrane Course Vital Signs Vital signs: Vital Signs Temperature 36.6 C 02/11/25 18:46 Pulse 80 02/11/25 18:46 Respiratory Rate 18 02/11/25 18:46 Blood Pressure 136/57 L 02/11/25 18:46 Pulse Oximetry 93 02/11/25 18:46 Temperature 36.6 C 02/11/25 18:54 Temperature Source Oral 02/11/25 18:54 Pulse 80 02/11/25 18:54 Respiratory Rate 18 02/11/25 18:54 Blood Pressure 136/57 L 02/11/25 18:54 Blood Pressure Position Sitting 02/11/25 18:54 Pulse Oximetry 93 02/11/25 18:54 Oxygen Delivery Method Room Air 02/11/25 18:54 Oxygen Flow Rate 0 02/11/25 18:54 Pain Level 3 02/11/25 18:54 Medical Decision Making 84-year-old female presenting out of concern for retained hearing aid, no hearing aid appreciated on examination of right or left tympanic membrane. Patient was with aware that there is no obvious retained foreign body and that she should look for her hearing aid in the area that she lost it. Return precautions reviewed and patient expressed understanding Quality:SDOH Health Related Social Needs: Health related social needs details n/a PFSH All Active Problems (Updated 02/11/25 @ 22:47 by MARLENA Enrique) Foreign body in ear, unspecified ear, initial encounter (Acute) Chronic obstructive lung disease (Chronic) PFT'S 2009 FEV 1.15=59% continues to smoke Hallucination (Acute) ACP (advance care planning) (Acute) CKD (chronic kidney disease) (Chronic) Bilateral sensorineural hearing loss (Acute) Chest congestion (Acute) Fatigue (Acute) Venous insufficiency (Acute) Atherosclerosis of artery of both lower extremities (Acute) Onychomycosis (Acute) Pain in joint, foot, left (Acute) Pain in right foot (Acute) Knee pain, right (Acute) Trochanteric bursitis of left hip (Acute) Toe pain, left (Acute) Toe pain, right (Acute) Essential hypertension (Chronic 03/30/13) Hyperlipidemia (Acute) Anemia (Chronic) Pulmonary nodules/lesions, multiple (Acute) Pulmonary hypertension (Acute) Left hemiparesis (Acute) 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 Due repeat MRI in 10/2022. Counseling regarding advanced directives and goals of care (Acute) CVA (cerebral vascular accident) (Chronic) Neuro est. between 04/2020-11/2021 Grief reaction (Chronic) Spouse 08/13/21 passed Carotid stenosis, left (Acute) 50-69% stenosis 04/2022; complete obstruction right internal carotid. Shoulder arthralgia (Chronic) Polyp of colon (Acute) tubular adenoma Peripheral vascular disease (Acute) Jul 2014 [facility] [place] aorto bifem bypass LEFT ILIAC STENT [facility] [place] 03/2010 Lumbago (Chronic 05/10/13) Constipation (Chronic 11/14/17) Medical History Anxiety about health Congestive heart failure Disorder of ear, left Diverticulitis of colon H/O SIGMOID COLECTOMY Former cigarette smoker Hand pain, left History of tobacco abuse Hypernatremia Ischemic cerebrovascular accident (CVA) due to atherosclerosis of large extracranial artery Left hip pain POCUS 09/26/23 Left upper quadrant abdominal pain Perichondritis Pleural effusion Pleural effusion Pneumonia Productive cough Seizures Smoker (10/19/16) Surgical History Extraction of cataract B/L 04/2013 Ligation of fallopian tube Rotator Cuff Repair RIGHT S/P partial colectomy Trigger Finger release WRIST/THUMB SURGERY LEFT THUMB LEFT WRIST RIGHT THUMB Family History Mother Diabetes Essential hypertension Stroke Father , 55 Heart disease Stroke Brother , 71 Complications from surgery No problems noted. Son No problems noted. Son No problems noted. Daughter No problems noted. Daughter No problems noted. Social History Smoking/Tobacco Use Status: Former Tobacco Use tobacco type: cigarettes Quit Date: 09/18/23 Tobacco: How many years used: 65 Quit status: has quit before Second Hand Exposure: Yes Smoking risk assessment performed?: Yes Alcohol Intake: never Substance use type: does not use Counseling given: No Counseling provided: none Caregiver/Support person: Yes Details: Son checks on me 2x a day Household members: none Housing: house Number of Children: 4 number of grandchildren: 4 Communication Needs: Hard of Hearing and Blind Education Level: college Details: some Do you need help understanding health information?: Rarely 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 Pets and animals: Yes Pets and animals: dog(s) Sexually active: No Do you think of yourself as: straight/heterosexual Current gender identity: female What is your relationship status?: How often do you talk on the phone with friends or family?: twice per week How often do you get together with friends or relatives?: three or more times per week How often do you attend nondenominational or anglican services?: decline to answer Do you belong to any clubs or organized social groups?: no Panel score (0-1 are the most socially isolated patients): 1 What type of physical activity do you participate in: other Details: PT and OT exercises Duration: < 15 minutes/day Frequency: 3-4 times per week Darlene/Orthodoxy: Non mosque Special darlene needs: No Seatbelt use: always Helmet use: No (never) Drive intox or ride w/intox marine engine driver: No (never) Firearms in home: No Do you feel safe at home: Yes Do you feel safe in your relationship?: Yes Victim of physical abuse: No Victim of emotional abuse: No Victim of sexual abuse: No Additional Social history: Pt smoked for 60yrs quit aug 2022.
== END 2025-02-11 19:22 | disposition home or self-care (01) ==
PROVIDERS: Emergency Provider Physician Assistant; PCP Nurse Practitioner Family
DX: Z71.1 Person with feared health complaint in whom no diagnosis is made (principal)
CPT/HCPCS: 99282; 99281

== ENCOUNTER → 2025-02-18 14:18 | Outpatient (BNVA) | payer MEDICARE, OTHER, SELFPAY | PROVIDERS: PCP Nurse Practitioner Family; Referring Provider Nurse Practitioner Family; Visit Provider Podiatrist | DX: L60.3 Nail dystrophy (principal); B35.1 Tinea unguium; M79.674 Pain in right toe(s); M79.675 Pain in left toe(s); I70.203 Unspecified atherosclerosis of native arteries of extremities, bilateral legs; I87.2 Venous insufficiency (chronic) (peripheral); D64.9 Anemia, unspecified; G81.94 Hemiplegia, unspecified affecting left nondominant side; Z86.73 Personal history of transient ischemic attack (TIA), and cerebral infarction without residual deficits; N18.9 Chronic kidney disease, unspecified; Z72.0 Tobacco use; R09.89 Other specified symptoms and signs involving the circulatory and respiratory systems; L65.9 Nonscarring hair loss, unspecified; R20.8 Other disturbances of skin sensation; R23.4 Changes in skin texture; L60.8 Other nail disorders; R23.8 Other skin changes; I83.93 Asymptomatic varicose veins of bilateral lower extremities; L53.8 Other specified erythematous conditions; L60.2 Onychogryphosis | CPT/HCPCS: 11721 ==

== ENCOUNTER 2025-03-15 10:31 | Outpatient (CLI) | payer MEDICARE, OTHER, SELFPAY ==
--- NOTE | 2025-03-15 10:30 | RT.EKG_ITS ---
APPROVED REPORT Exam: Resting ECG Reason for Exam: Hypertension Patient Location: O HR:62 bpm ECG Measurements Heart Rate 62 AXIS SC 169 P 56 QRSd 112 QRS 17 QT 457 T 61 QTc 464 Conclusion Sinus rhythm...normal P axis, V-rate 50- 99 Atrial premature beat Left axis Late transition
== END 2025-03-15 10:32 | disposition home or self-care (01) ==
LOC: DI.CM 10:33
PROVIDERS: PCP Nurse Practitioner Family; Visit Provider Nurse Practitioner Family
DX: R00.1 Bradycardia, unspecified (principal); I10 Essential (primary) hypertension
CPT/HCPCS: 93010

== ENCOUNTER 2025-03-15 15:47 | Outpatient (REF) | payer MEDICARE, OTHER, SELFPAY ==
[2025-03-15 14:40] LABS: HCT 31.8 % (36.0-46.0); HGB 9.4 g/dL (11.2-15.7); MCH 23.3 pg (27.0-33.0); MCHC 29.6 % (32.0-36.0); MCV 79 fL (80-95); MPV 10.1 fL (8.0-11.0); Platelet Count 220 10^3/uL (130-400); RBC 4.04 10^6/uL (3.93-5.22); RDW 19.1 % (11.7-14.6); RDW-SD 54.5 fL; WBC 5.95 10^3/uL (4.4-10.8)
[2025-03-15 15:13] LABS: Anion Gap 10.7 mmol/L (3-11); BUN 31 mg/dL (7-18); CO2 30.3 mmol/L (21.0-32.0); Calcium 9.5 mg/dL (8.5-10.1); Chloride 102 mmol/L (98-107); Estimated GFR 45.19 (mL/min/1.73m2); Glucose 87 mg/dL (74-106); Potassium 3.0 mmol/L (3.5-5.1); Sodium 143 mmol/L (136-145)
== END 2025-03-15 15:48 | disposition home or self-care (01) ==
LOC: LBN 15:47
PROVIDERS: PCP Nurse Practitioner Family; Visit Provider Nurse Practitioner Family
DX: R53.83 Other fatigue (principal)
CPT/HCPCS: 80048; 85027

== ENCOUNTER 2025-06-21 15:06 | Outpatient (REF) | payer MEDICARE, OTHER, SELFPAY ==
[2025-06-21 21:04] LABS: HCT 38.4 % (36.0-46.0); HGB 11.8 g/dL (11.2-15.7); MCH 27.1 pg (27.0-33.0); MCHC 30.7 % (32.0-36.0); MCV 88 fL (80-95); MPV 11.0 fL (8.0-11.0); Platelet Count 168 10^3/uL (130-400); RBC 4.35 10^6/uL (3.93-5.22); RDW 17.0 % (11.7-14.6); RDW-SD 55.6 fL; WBC 7.29 10^3/uL (4.4-10.8)
[2025-06-21 21:22] LABS: Hemoglobin A1C 6.0 % (<5.7)
[2025-06-21 21:27] LABS: Anion Gap 11.2 mmol/L (3-11); BUN 26 mg/dL (9-23); CO2 31.8 mmol/L (20.0-31.0); Calcium 9.5 mg/dL (8.3-10.6); Chloride 105 mmol/L (98-107); Glucose 77 mg/dL (74-106); Potassium 3.6 mmol/L (3.5-5.1); Sodium 148 mmol/L (136-145)
[2025-06-21 21:28] LABS: Iron 48 ug/dL (50-170)
[2025-06-21 21:30] LABS: Ferritin 26 ng/mL (7-271)
== END 2025-06-21 15:07 | disposition home or self-care (01) ==
LOC: LBN 15:06
PROVIDERS: PCP Nurse Practitioner Family; Visit Provider Nurse Practitioner Family
DX: E78.2 Mixed hyperlipidemia (principal); E11.9 Type 2 diabetes mellitus without complications; D64.9 Anemia, unspecified; R53.83 Other fatigue
CPT/HCPCS: 80048; 85027; 82728; 83036; 83540

== ENCOUNTER → 2025-07-01 15:40 | Outpatient (BNVA) | payer MEDICARE, OTHER, SELFPAY | PROVIDERS: PCP Nurse Practitioner Family; Referring Provider Nurse Practitioner Family; Visit Provider Internal Medicine Pulmonary Disease ==